=== PATIENT | female | born 2005 | race Caucasian/White ===

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

== ENCOUNTER → 2023-01-16 | Outpatient (CLI) | payer BC, SELFPAY ==
[2023-01-16 16:27] LABS: Hemoglobin A1c 4.8 % (3.8-5.6)
[2023-01-16 16:35] LABS: T4 Free Direct 1.03 ng/dL (0.76-1.46); Thyroid Stim Hormone (TSH) 1.68 uIU/mL (0.358-3.74)
[2023-01-18 22:11] LABS: Chlamydia By Nucleic Acid AMP Negative (Negative); Gonococcus By Nucleic Acid AMP Negative (Negative)
[2023-01-19 13:07] LABS: Testosterone Free 2.2 pg/mL (Not Estab.)
== END | disposition home or self-care (01) ==
PROVIDERS: PCP Internal Medicine; Referring Provider Registered Nurse; Visit Provider Registered Nurse
DX: N92.6 Irregular menstruation, unspecified (principal); Z20.2 Contact with and (suspected) exposure to infections with a predominantly sexual mode of transmission
CPT/HCPCS: 36415; 82627; 83036; 84402; 84439; 84443; 87491; 87591; 82626

== ENCOUNTER → 2023-01-18 | Outpatient (CLI) | payer BC, SELFPAY ==
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
== END | disposition home or self-care (01) ==
PROVIDERS: PCP Internal Medicine; Referring Provider Registered Nurse; Visit Provider Registered Nurse
DX: N92.6 Irregular menstruation, unspecified (principal)
CPT/HCPCS: 76830

== ENCOUNTER 2023-10-04 17:37 | Emergency (ER) | payer BC, SELFPAY ==
[2023-10-04 17:37] VITALS: BP 109/70; PULSE 64; RESP 16; TEMP 36.4; O2SAT 98; BMI 32.1
--- OUTSIDE RECORDS SUMMARY | 2023-10-04 18:38 | XMS RPT_ITS | CCD ---
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 01/21/2023 7:45 PM EDT Reason for Call: Had one episode of slight vaginal bleeding a short time ago. Her period ended a week ago. Outcome: Suggested that she see her doctor if bleeding continues. She will call her radio tester doctor at [facility] to discuss with him. Reason for Disposition [1] Bleeding or spotting between regular periods AND [2] occurs three cycles (3 months) or less this past year Answer Assessment - Initial Assessment Questions 1. AMOUNT: streaks of blood noted on toilet tissue 2. ONSET: noticed a few minutes ago after using the bathroom 3. MENSTRUAL PERIOD: period ended a week ago 4. REGULARITY:not asked 5. ABDOMINAL PAIN: lower abdominal pain for a few weeks, rated as 3 out of 10, saw an radio tester recently and was diagnosed with an ovarian cyst. 6. : no chance of , does not use control 7. : N/A 8. HORMONES: none 9. BLOOD THINNERS: none 10. CAUSE: unknown 11. HEMODYNAMIC STATUS: feels a little weak, but just donated plasma 1 1/2 hours ago 12. OTHER SYMPTOMS:none Protocols used: Vaginal Bleeding - [id number] documented in this encounterMercy [facility]04-24-2023 NoteHNO ID: [id number] Author: Yee Sanchez APRN.[employer] Service: ? Author Type: Nurse Practitioner Type: Progress Notes Filed: 12/10/2022 8:57 AM Note Text: CC: Patient presents with: Rash HPI Kuldeep Pineda is a 17 year old female who presents today for rash follow-up. She was seen last week with worsening urticarial rash despite prednisone. Had also reported symptoms consistent with angioedema. Labs were essentially unremarkable. Today patient reports she has still rash but just not as itchy. Lip swelling and rash have resolved. Denies any new or worsening symptoms. REVIEW OF SYSTEMS See HPI PAST MEDICAL HISTORY Diagnosis Date Breakthrough bleeding 03/23/2022 COVID-19 05/02/2021 Infection due to Chlamydia species 03/23/[address] 04/12/2021 PAST SURGICAL HISTORY Procedure Laterality Date PAST SURGICAL HISTORY OF 2019 Oral surgery under [facility] Patient has no known allergies. MEDICATIONS buPROPion XL (WELLBUTRIN XL) 150 mg 24 hr tablet Take 150 mg by mouth once daily. TAKE 1 TABLET BY MOUTH ONCE DAILY IN THE MORNING hydrOXYzine HCl (ATARAX) 50 mg tablet Take 50 mg by mouth once daily as needed. FAMILY HISTORY Problem Relation Age of Onset No Known Problems Mother Hypertension Father Psychiatry Sister No Known Problems Sister No Known Problems Sister No Known Problems Sister No Known Problems Brother No Known Problems Brother No Known Problems Brother No Known Problems Brother No Known Problems Maternal Grandfather Breast Cancer Paternal Grandmother No Known Problems Paternal Grandfather Social History Tobacco Use Smoking status: Never Smokeless tobacco: Never Vaping Use Vaping Use: Former Quit date: 08/19/2020 Substance Use Topics Alcohol use: Not Currently Drug use: Never PHYSICAL EXAM BP 119/75 Pulse 86 Resp 14 Wt 73 kg (161 lb) General Appearance: well appearing, in no acute distress, alert Oropharynx: lips normal without lesions, buccal mucosa normal, tongue midline and normal, soft palate, uvula, and tonsils normal Skin: rash on torso is smaller and less erythematous DATA REVIEWED: Most recent labs ASSESSMENT/PLAN: 1. Urticaria - ICD9: 708.9, ICD10: L50.9 (primary diagnosis) Improved. Etiology remains unclear - recommend follow-up with car wash attendant, patient already established at [facility] - Continue anti itch therapy of Atarax prn 2. Angioedema, subsequent encounter - ICD9: V58.89, 995.1, ICD10: T78.3XXD Resolved. Follow-up with dermatology as above Prescription instructions reviewed with patient as applicable. Potential red flag symptoms discussed with the patient. Reviewed appropriate action plan to take if red flag symptoms occur. Patient agreeable to treatment plan. During this patient visit I have spent approximately 20 minutes in counseling regarding treatment options, medications, and coordinating care. Yee Sanchez APRN.[facility]AM[facility]04-17-2023 NoteHNO ID: [id number] Author: Yee Sanchez APRN.HAJA Service: ? Author Type: Nurse Practitioner Type: Progress Notes Filed: 12/03/2022 12:23 PM Note Text: CC: Patient presents with: Rash: No better since seen [facility]. HPI Kuldeep Pineda is a 17 year old female who presents today for rash for about one week. She was seen in urgent care [facility] on 11/30, rash started after she switched body wash brand. She was treated with prednisone and Pepcid for contact dermatitis. Since then rash has been worsening. Location: abdomen, low back, chest. She also reports lip swelling and bumps around the edges of her lips. Denies tongue or throat swelling, difficulty breathing or swallowing, cough or wheezing Itching or Pain: YES, very itchy and uncomfortable Ever had a rash like this before: YES, history of urticaria intermittently. History of skin problems such as psoriasis, eczema, hives: YES, eczema. New medications or foods: No. Exposure to others with rash: No. Environmental exposures: No Environmental/seasonal allergies: No Fever, chills, fatigue, joint pain/swelling: No. Treatments: Aveeno, benadryl cream, Dove soap PAST MEDICAL HISTORY Diagnosis Date Breakthrough bleeding 03/23/2022 COVID-19 05/02/2021 Infection due to Chlamydia species 03/23/[address] 04/12/2021 PAST SURGICAL HISTORY Procedure Laterality Date PAST SURGICAL HISTORY OF 2019 Oral surgery under [facility] Patient has no known allergies. MEDICATIONS predniSONE (DELTASONE) 10 mg tablet Take 4 tabs daily for 3 days, then 2 tabs daily for 3 days, then 1 tab daily for 3 days with food. famotidine (PEPCID) 20 mg tablet Take 1 tablet by mouth twice daily for 7 days. ARIPiprazole (ABILIFY) 5 mg tablet Take 1 tablet by mouth once daily. from Mental Health (Patient not taking: Reported on 11/30/2022) hydrOXYzine HCl (ATARAX) 50 mg tablet Take 1 tablet by mouth three times daily as needed for anxiety. from Mental Health (Patient not taking: Reported on 11/30/2022) lamoTRIgine (LAMICTAL) 100 mg tablet Take 1 tablet by mouth once daily. from Mental Health (Patient not taking: Reported on 11/30/2022) traZODone (DESYREL) 50 mg tablet Take 1 tablet by mouth daily at bedtime. from Mental Health (Patient not taking: Reported on 11/30/2022) venlafaxine ER (EFFEXOR XR) 75 mg 24 hr capsule Take 1 capsule by mouth once daily. from Mental Health (Patient not taking: Reported on 11/30/2022) FAMILY HISTORY Problem Relation Age of Onset No Known Problems Mother Hypertension Father Psychiatry Sister No Known Problems Sister No Known Problems Sister No Known Problems Sister No Known Problems Brother No Known Problems Brother No Known Problems Brother No Known Problems Brother No Known Problems Maternal Grandfather Breast Cancer Paternal Grandmother No Known Problems Paternal Grandfather Social History Tobacco Use Smoking status: Never Smokeless tobacco: Never Vaping Use Vaping Use: Former Quit date: 08/19/2020 Substance Use Topics Alcohol use: Not Currently Drug use: Never REVIEW OF SYSTEMS See HPI PHYSICAL EXAM BP 117/76 Pulse 73 Resp 14 Wt 73.5 kg (162 lb) General Appearance: well appearing, in no acute distress, alert Oropharynx: lips puffy, edges of lips are dry with rough bumps. Tongue and pharynx normal. Oral mucosa normal. Lungs: Lungs clear to auscultation. No wheezing, rhonchi, rales. Heart: RRR without murmur, gallop, or rubs. No ectopy ASSESSMENT/PLAN: 1. Urticaria - ICD9: 708.9, ICD10: L50.9 Recurrent urticaria with angioedema of the lips. She has never had lab evaluation for this. No alarm symptoms or exam findings. - Treatment with antihistamine- Zyrtec 10mg po QD and - TRIAMCINOLONE ACETONIDE 40 MG/ML SUSPENSION FOR INJECTION today in the office. - Continue with systemic steriods taper - Anti itch therapy of Oatmeal baths recommended prn - Follow up [facility] car wash attendant[facility] Check labs: - CBC + DIFF - COMP METABOLIC PANEL - SED RATE WESTERGREN - C-REACTIVE PROTEIN (CRP) - URINALYSIS, WITH MICROSCOPIC Prescription instructions reviewed with patient as applicable. Potential red flag symptoms discussed with the patient. Reviewed appropriate action plan to take if red flag symptoms occur. Patient agreeable to treatment plan. Yee Sanchez APRN.HAAJMartins Ferry [facility]04-14-2023 NoteHNO ID: [id number] Author: Emily Hathaway APRN.HAJA Service: ? Author Type: Nurse Practitioner Type: Progress Notes Filed: 11/30/2022 7:47 AM Note Text: Subjective Came in with complaints of itching rash on bilateral arms and hands abdomen and face. Patient says she has very sensitive skin. Says she recently changed her body wash over the last couple days. Patient says the rash itches. Denies any other symptoms at this time. The history is provided by the patient. No radio electronics officer was used. Rash Review of Systems Constitutional: Negative. Skin: Positive for itching and rash. Objective Physical Exam Constitutional: Appearance: Normal appearance. Pulmonary: Effort: Pulmonary effort is normal. Skin: Comments: Patient does have contact dermatitis rash in areas marked above. Neurological: Mental Status: She is alert. PAST MEDICAL HISTORY Diagnosis Date Breakthrough bleeding 03/23/2022 COVID-19 05/02/2021 Infection due to Chlamydia species 03/23/[address] 04/12/2021 PAST SURGICAL HISTORY Procedure Laterality Date PAST SURGICAL HISTORY OF 2019 Oral surgery under [facility] Patient has no known allergies. MEDICATIONS predniSONE (DELTASONE) 10 mg tablet Take 4 tabs daily for 3 days, then 2 tabs daily for 3 days, then 1 tab daily for 3 days with food. famotidine (PEPCID) 20 mg tablet Take 1 tablet by mouth twice daily for 7 days. ARIPiprazole (ABILIFY) 5 mg tablet Take 1 tablet by mouth once daily. from Mental Health (Patient not taking: Reported on 11/30/2022) hydrOXYzine HCl (ATARAX) 50 mg tablet Take 1 tablet by mouth three times daily as needed for anxiety. from Mental Health (Patient not taking: Reported on 11/30/2022) lamoTRIgine (LAMICTAL) 100 mg tablet Take 1 tablet by mouth once daily. from Mental Health (Patient not taking: Reported on 11/30/2022) traZODone (DESYREL) 50 mg tablet Take 1 tablet by mouth daily at bedtime. from Mental Health (Patient not taking: Reported on 11/30/2022) venlafaxine ER (EFFEXOR XR) 75 mg 24 hr capsule Take 1 capsule by mouth once daily. from Mental Health (Patient not taking: Reported on 11/30/2022) FAMILY HISTORY Problem Relation Age of Onset No Known Problems Mother Hypertension Father Psychiatry Sister No Known Problems Sister No Known Problems Sister No Known Problems Sister No Known Problems Brother No Known Problems Brother No Known Problems Brother No Known Problems Brother No Known Problems Maternal Grandfather Breast Cancer Paternal Grandmother No Known Problems Paternal Grandfather Social History Tobacco Use Smoking status: Never Smokeless tobacco: Never Vaping Use Vaping Use: Former Quit date: 08/19/2020 Substance Use Topics Alcohol use: Not Currently Drug use: Never ASSESSMENT/PLAN: 1. Rash - ICD9: 782.1, ICD10: R21 - PREDNISONE 10 MG TABLET - FAMOTIDINE 20 MG TABLET Patient was educated about proper use of medication and supportive therapies. Patient will follow-up if signs and symptoms do not seem to be getting better. Patient was okay with this care plan. Patient will also not use the body wash anymore. Emily Hathaway APRN.[facility]04-14-2023 History of Present illness Narrative* Emily Hathaway APRN.[facility] - 11/30/2022 7:45 AM EDT Images from the original note were not included. Subjective Came in with complaints of itching rash on bilateral arms and hands abdomen and face. Patient says she has very sensitive skin. Says she recently changed her body wash over the last couple days. Patient says the rash itches. Denies any other symptoms at this time. The history is provided by the patient. No radio electronics officer was used. Rash Review of Systems Constitutional: Negative. Skin: Positive for itching and rash. Objective Physical Exam Constitutional: Appearance: Normal appearance. Pulmonary: Effort: Pulmonary effort is normal. Skin: Comments: Patient does have contact dermatitis rash in areas marked above. Neurological: Mental Status: She is alert. PAST MEDICAL HISTORY Diagnosis Date Breakthrough bleeding 03/23/2022 COVID-19 05/02/2021 Infection due to Chlamydia species 03/23/[address] 04/12/2021 PAST SURGICAL HISTORY Procedure Laterality Date PAST SURGICAL HISTORY OF 2019 Oral surgery under [facility] Patient has no known allergies. MEDICATIONS predniSONE (DELTASONE) 10 mg tablet Take 4 tabs daily for 3 days, then 2 tabs daily for 3 days, then 1 tab daily for 3 days with food. famotidine (PEPCID) 20 mg tablet Take 1 tablet by mouth twice daily for 7 days. ARIPiprazole (ABILIFY) 5 mg tablet Take 1 tablet by mouth once daily. from Mental Health (Patient not taking: Reported on 11/30/2022) hydrOXYzine HCl (ATARAX) 50 mg tablet Take 1 tablet by mouth three times daily as needed for anxiety. from Mental Health (Patient not taking: Reported on 11/30/2022) lamoTRIgine (LAMICTAL) 100 mg tablet Take 1 tablet by mouth once daily. from Mental Health (Patientnot taking: Reported on 11/30/2022) traZODone (DESYREL) 50 mg tablet Take 1 tablet by mouth daily at bedtime. from Mental Health (Patient not taking: Reported on 11/30/2022) venlafaxine ER (EFFEXOR XR) 75 mg 24 hr capsule Take 1 capsule by mouth once daily. from Mental Health (Patient not taking: Reported on 11/30/2022) FAMILY HISTORY Problem Relation Age of Onset No Known Problems Mother Hypertension Father Psychiatry Sister No Known Problems Sister No Known Problems Sister No Known Problems Sister No Known Problems Brother No Known Problems Brother No Known Problems Brother No Known Problems Brother No Known Problems Maternal Grandfather Breast Cancer Paternal Grandmother No Known Problems Paternal Grandfather Social History Tobacco Use Smoking status: Never Smokeless tobacco: Never Vaping Use Vaping Use: Former Quit date: 08/19/2020 Substance Use Topics Alcohol use: Not Currently Drug use: Never ASSESSMENT/PLAN: 1. Rash - ICD9: 782.1, ICD10: R21 - PREDNISONE 10 MG TABLET - FAMOTIDINE 20 MG TABLET Patient was educated about proper use of medication and supportive therapies. Patient will follow-up if signs and symptoms do not seem to be getting better. Patient was okay with this care plan. Patient will also not use the body wash anymore. Emily Hathaway APRN.CNP documented in this encounterMer[facility]11-15-2022 Instructions* Patient Instructions* Barbara Ellison APRN.CNP - 07/03/2022 6:33 PM EST covid and flu test ordered You will be notified in 12-24 hours, results available on [facility] Home isolation until covid results are back Rest, increase water intake Motrin or Tylenol as needed for fever or pain. Salt water gargles, chloraseptic spray or lozenges as needed for sore throat. Warm beverages, honey. Nasal saline spray as needed Cool mist humidifier at night Tylenol (generic acetaminophen) 500 mg-2 tabs every 8 hrs. as needed for fever and aches Ibuprofen 600 mg (3-200mg tablets) every 6 hours DO NOT take any other OTC cough or cold medication while taking the prescription Bromfed DM. May use advil aleve ibuprofen or tylenol * Seek medical care immediately, call 911, go to ER if you have chest pain, difficulty breathing, shortness of breath, inability to swallow. documented in this encounterMercy [facility]11-15-2022 History of Present illness Narrative* Barbara Ellison APRN.CNP - 07/03/2022 6:29 PM EST Subjective The history is provided by the patient. No radio electronics officer was used. HPI Kuldeep Pineda is a 16 year old female who presents today for CC of nasal congestion, pressure, cough, ear pain/pressure and sore throat for 3 days. 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 BP 122/72 Pulse 80 Temp 36.4 C (97.6 F) Resp 16 Wt 76.2 kg (168 lb) SpO2 100% Social History Tobacco Use Smoking status: Never Smokeless tobacco: Never Vaping Use Vaping Use: Former Quit date: 08/19/2020 Substance Use Topics Alcohol use: Not Currently Drug use: Never PAST MEDICAL HISTORY Diagnosis Date Breakthrough bleeding 03/23/2022 COVID-19 05/02/2021 Infection due to Chlamydia species 03/23/[address] 04/12/2021 I have confirmed and edited as necessary, the [facility] Review of Systems Constitutional: Negative for chills and fever. HENT: Positive for congestion and sinus pain. Negative for ear pain and sore throat. Respiratory: Positive for cough. Negative for sputum production, shortness of breath and wheezing. Cardiovascular: Negative for chest pain. Musculoskeletal: Negative for myalgias. Neurological: Negative for headaches. Objective Physical Exam Vitals and nursing note reviewed. HENT: Head: Normocephalic and atraumatic. Right Ear: Ear canal and external ear normal. A middle ear effusion is present. Tympanic membrane is bulging. Left Ear: Ear canal and external ear normal. A middle ear effusion is present. Tympanic membrane isbulging. Nose: Mucosal edema, congestion and rhinorrhea present. Right Sinus: No maxillary sinus tenderness or frontal sinus tenderness. Left Sinus: No maxillary sinus tenderness or frontal sinus tenderness. Mouth/Throat: Pharynx: Uvula midline. Posterior oropharyngeal erythema present. No oropharyngeal exudate. Tonsils: 2+ on the right. 2+ on the left. Cardiovascular: Rate and Rhythm: Normal rate and regular rhythm. Heart sounds: Normal heart sounds. Pulmonary: Effort: Pulmonary effort is normal. Breath sounds: Normal breath sounds. Lymphadenopathy: Head: Right side of head: No submental, submandibular or tonsillar adenopathy. Left side of head: No submental, submandibular or tonsillar adenopathy. Cervical: Cervical adenopathy present. Right cervical: Superficial cervical adenopathy present. Left cervical: Superficial cervical adenopathy present. Skin: General: Skin is warm and dry. Neurological: Mental Status: She is alert. Psychiatric: Mood and Affect: Affect normal. ASSESSMENT/PLAN: 1. URI with cough and congestion - ICD9: 465.9, ICD10: J06.9 - Discussed viral etiology and rationale for treatment. - Symptomatic treatment with prn analgesia - Supportive care with fluids and rest Home isolation Testing ordered Comfort measures discussed - see patient instructions. When to seek higher level of care Notified in 12-24 hours with results, available on [facility] - COVID WITH FLUA+B, ROUTINE Diagnosis and treatment plan were discussed and questions were answered to the patient's satisfaction. Pt acknowledged understanding of concepts and follow up plan. Specific signs and symptoms that would indicate the need for higher level of care were discussed indetail warranting prompt ER evaluation. Barbara Ellison APRN.HAJA documented in this encounterMercy Health [facility]08-05-2022 History of Past illness Narrative* Problem Noted Date Resolved Date Infection due to Chlamydia species 03/23/2022 03/23/2022 documented as of this encounter (statuses as of 07/04/2022) [facility] History of Past illness Narrative* Problem Noted Date Resolved Date Infection due to Chlamydia species 03/23/2022 03/23/2022 documented as of this encounter (statuses as of 11/30/2022) [facility] History of Past illness Narrative* Problem Noted Date Resolved Date Infection due to Chlamydia species 03/23/2022 03/23/2022 documented as of this encounter (statuses as of 01/22/2023) [facility] History of Past illness Narrative* Problem Noted Date Resolved Date Infection due to Chlamydia species 03/23/2022 03/23/2022 documented as of this encounter (statuses as of 01/24/2023) [facility] History of Past illness Narrative* Problem Noted Date Diagnosed Date Resolved Date Infection due to Chlamydia species 03/23/2022 03/23/2022 Breakthrough bleeding 03/23/20222022 documented as of this encounter (statuses as of 07/30/2023) [facility] History of Present illness Narrative* Jorge Bearden MD - 03/23/2022 8:43 AM EDT This note was created using [employer]. Subjective Patient presents with: Establish Care Anxiety: 1 year or more Kuldeep Pineda was here for above. She had symptoms of crying, emotional breakdown, anxiety, hyperventilation recurrent for one year or more. Her previous PCP did not feel this was significant. Shehad never been formally diagnosed with anxiety or depression. Her father and sister were on sertraline. Parents when she was younger. She had no history of suicide attempts. 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 She was seeing [facility] for gynecology. PAST MEDICAL HISTORY Diagnosis Date Breakthrough bleeding 03/23/2022 COVID-19 05/02/2021 Infection due to Chlamydia species 03/23/[address] 04/12/2021 PAST SURGICAL HISTORY Procedure Laterality Date PAST SURGICAL HISTORY OF 2019 Oral surgery under [place] FAM[facility] HISTORY Problem Relation Age of Onset No Known Problems Mother Hypertension Father Psychiatry Sister No Known Problems Sister No Known Problems Sister No Known Problems Sister No Known Problems Brother No Known Problems Brother No Known Problems Brother No Known Problems Brother No Known Problems Maternal Grandfather Breast Cancer Paternal Grandmother No Known Problems Paternal Grandfather Social History Tobacco Use Smoking status: Never Smoker Smokeless tobacco: Never Used Vaping Use Vaping Use: Former Quit date: 08/19/2020 Substance Use Topics Alcohol use: Not Currently Drug use: Never Immunization History Administered Date(s) Administered DTaP, unspecified formulation 2003 2003 03/23/2004 11/28/2004 04/13/2009 HIB PRP-T Conjugated -4 Dose Series 2003 2003 03/23/2004 Hepatitis A Peds/Adol 04/12/2021 Hepatitis B Peds/Adol 2003 2003 Hib-HepB 2003 11/28/2004 Human Papillomavirus 9-valent Vaccine, Recombinant 04/12/2021 05/15/2021 IPV 2003 2003 11/28/2004 04/13/2009 Influenza Nasal, unspecified formulation 06/17/2006 Influenza Seasonal Inj Quad Age 6 Mo-64 Yrs Pres Free 05/15/2021 Influenza Vaccine, Whole 10/19/2004 Meningococcal Conjugate MCV4P Vaccine, IM 04/12/2021 Meningococcal Group B Vaccine 2 Dose 04/12/2021 05/15/2021 Pneumococcal Vac Conjugate(#7 thru NOVEMBER 2009 then #13 thereafter) 2003 2003 03/23/2004 11/28/2004 Tdap (Age 7+) 04/12/2021 Varicella Vaccine 10/19/2004 04/13/2009 measles mumps rubella (MMR) vaccine (M-M-R II, PRIORIX) 10/19/2004 04/13/2009 ALLERGIES No Known Allergies Current Outpatient Medications Medication Sig Ethinyl Estradiol-Norelgestrom (ZAFEMY) 150-35 mcg/24 hr patch Apply 1 Patch as directed one time aweek. sertraline (ZOLOFT) 50 mg tablet Take 1 tablet by mouth once daily. No current facility-administered medications for this visit. Review of Systems Constitutional: Negative. HENT: Negative. Eyes: Negative. Respiratory: Negative. Cardiovascular: Negative. Gastrointestinal: Negative. Genitourinary: Negative. Musculoskeletal: Negative. Skin: Soft spot right deltoid for one year. Neurological: Positive for headaches. Usual tension headaches once a week. Psychiatric/Behavioral: See HPI. Objective BP 120/78 Pulse 66 Ht 156 cm (5' 1.4 ) Wt 73 kg (161 lb) BMI 30.03 kg/m Physical Exam Constitutional: General: She is not in acute distress. HENT: Head: Normocephalic. Eyes: Conjunctiva/sclera: Conjunctivae normal. Pupils: Pupils are equal, round, and reactive to light. Cardiovascular: Rate and Rhythm: Normal rate and regular rhythm. Heart sounds: No murmur heard. No gallop. Pulmonary: Effort: Pulmonary effort is normal. Breath sounds: Normal breath sounds. Abdominal: Palpations: Abdomen is soft. Tenderness: There is no abdominal tenderness. Musculoskeletal: General: No tenderness. Normal range of motion. Cervical back: Neck supple. Right lower leg: No edema. Left lower leg: No edema. Skin: Comments: 0.5 cm subcutaneous atrophy right deltoid presumably from some injection Neurological: General: No focal deficit present. Mental Status: She is alert and oriented to person, place, and time. Psychiatric: Mood and Affect: Mood normal. Behavior: Behavior normal. Thought Content: Thought content normal. CP PHQ9 03/23/2022 Little interest or pleasure 2 - More than half the days Feeling down, depressed, hopeless 2 - More than half the days Trouble falling or staying asleep, sleeping too much 2 - More than half the days Feeling tired, having little energy 2 - More than half the days Poor appetite or overeating 1 - Several days Feeling bad about yourself, failure or you have let yourself/family down 2 - More than half the days Trouble concentrating on things 2 - More than half the days Moving or speaking so slowly, or fidgety or restless 2 - More than half the days Thoughts that you would be better off , or of hurting yourself in some way 1 - Several days How difficult have these problems made things Somewhat difficult Interpretation of Total Score 15-19 Moderately severe depression JOSEFINA-7 ANXIETY SCALE 03/23/2022 FEELING NERVOUS,ANXIOUS,OR ON EDGE 3 Nearly every day NOT BEING ABLE TO STOP OR CONTROL WORRYING 2 Over half the days WORRYING TOO MUCH ABOUT DIFFERENT THINGS 3 Nearly every day TROUBLE RELAXING 2 Over half the days BEING SO RESTLESS THAT IT'S HARD TO SIT STILL 3 Nearly every day BEING EASILY ANNOYED OR IRRITABLE 3 Nearly every day FEELING AFRAID IF SOMETHING AWFUL MIGHT HAPPEN 2 Over half the days GAD7 SCORE 18 IF YOU CHECKED OFF ANY PROBLEMS Somewhat difficult Assessment and Plan 1. Anxiety and depression - ICD9: 300.00, 311, ICD10: F41.9, F32.A (primary diagnosis) New diagnosis. - CBC - COMP METABOLIC PANEL - SERTRALINE 50 MG TABLET. Discussed medication dosage, usage, goals of therapy, and side effects. - CONSULT TO [facility] - Patient contracted for safety. Call [phone] if with crisis. 2. Chronic tension-type headache, not intractable - ICD9: 339.12, ICD10: G44.229 Stable. 3. Atrophy of skin and soft tissue - ICD9: 701.9, ICD10: L90.9 Reassured. 4. Breakthrough bleeding - ICD9: 626.6, ICD10: N92.1 Seeing [facility]. She will have Nexplanon removed. FDA warning discussed. - ZAFEMY 150 MCG-35 MCG/24 HR TRANSDERMAL PATCH Jorge Bearden MD [facility] Instructions* Patient Instructions* Jorge Bearden MD - 03/23/2022 8:41 AM EDT ASK FOR 3RD DOSE OF GARDASIL. [facility]* Diagnosis Anxiety and depression- Primary Dysthymic disorder Chronic tension-type headache, not intractable Chronic tension type headache Atrophy of skin and soft tissue Unspecified hypertrophic and atrophic condition of skin Breakthrough bleeding Metrorrhagia [facility]* Diagnosis URI with cough and congestion- Primary [facility]* Diagnosis Rash- Primary Rash and other nonspecific skin eruption [facility]* Diagnosis Bipolar depression ([facility])- Primary Bipolar I disorder, most recent episode (or current) depressed, unspecified documented in this encounter [facility] Work Phone: History of Past illness Narrative* Problem Noted Date Resolved Date Infection due to Chlamydia species 03/23/2022 03/23/2022 documented as of this encounter (statuses as of 03/23/2022) [facility] Summary Purpose Family History No Family History Records FoundNo Family History Records FoundNo Family History Records FoundNo Family History Records FoundNo Family History Records FoundNo Family History Records Found Advance Directives No Advanced Directives Records FoundNo Advanced Directives Records FoundNo Advanced Directives Records FoundNo Advanced Directives Records FoundNo Advanced Directives Records FoundNo Advanced Directives Records Found Health Concerns Infection Onset Date Last Indicated Resolved Time COVID-19 Rule-Out 07/03/2022 07/03/2022 Additional Source Comments INFORMATION SOURCE (unrecogn ized section and content) DATE CREATED AUTHOR AUTHOR'S ORGANIZ ATION 07/09/2022 [facility] DATE CREATED AUTHOR AUTHOR'S ORGANIZ ATION 07/21/2022 [facility] DATE CREATED AUTHOR AUTHOR'S ORGANIZ ATION 04/11/[address] [facility] DATE CREATED AUTHOR AUTHOR'S ORGANIZ ATION 08/06/2023 [facility] DATE CREATED AUTHOR AUTHOR'S ORGANIZ ATION 09/28/2023 [facility] Source Comments (unrecognize d section and content) In the event this informatio n is protected by the Federal Confidentiality of Alcohol and Drug Abuse Patient Records regulations: The Federal rules restrict any use of the information to criminally investigate or prosecute any alcohol or drug abuse patient.[facility] the event this information is protected by the Federal Confidentiality of Alcohol and Drug Abuse Patient Records regulations: The Federal rules restrict any use of the information to criminally investigate or prosecute any alcohol or drug abuse patient.[facility] the event this information is protected by the Federal Confidentiality of Alcohol and Drug Abuse Patient Records regulations: The Federal rules restrict any use of the information to criminally investigate or prosecute any alcohol or drug abuse patient.[facility] Hospital[facility] the event this information is protected by the Federal Confidentiality of Alcohol and Drug Abuse Patient Records regulations: The Federal rules restrict any use of the information to criminally investigate or prosecute any alcohol or drug abuse patient.[facility] Hospital[facility] the event this information is protected by the Federal Confidentiality of Alcohol and Drug Abuse Patient Records regulations: The Federal rules restrict any use of the information to criminally investigate or prosecute any alcohol or drug abuse patient.[facility] Hospital[facility] the event this information is protected by the Federal Confidentiality of Alcohol and Drug Abuse Patient Records regulations: The Federal rules restrict any use of the information to criminally investigate or prosecute any alcohol or drug abuse patient.[facility] Reason for Visit (unrecogniz ed section and content) Reason Comments Nasal Congestion drainage, bilateral ear pain, cough and sore throat x 2-3 days Reason Comments Rash Hives, widespread x1 day, possible allergic reaction Reason Comments Vaginal Bleeding Reason Comments bh consult Reason Comments Anxiety Amb to ED with repor t of anxiety and depression. Takes Wellbutrin, but feels that her s/s have been getting worse. Called the [facility] line today and was advised to come to ER. She denies any SI or HI. Pt is calm, tearful and cooperative. Care Teams (unrecognized sec tion and content) Media Job Titles Relationship Specialty Start Date End Date Jorge Bearden MD [address], [place] [id number] PCP - General Internal Medicine 03/23/22 Media Job Titles Relationship Specialty Start Date End Date Jorge Bearden MD [address], [place] [id number] PCP - General Internal Medicine 03/23/22 Media Job Titles Relationship Specialty Start Date End Date Jorge Bearden MD [address], [place] [id number] PCP - General Internal Medicine 03/23/22 Media Job Titles Relationship Specialty Start Date End Date Jorge Bearden MD [address], [place] [id number] PCP - General Internal Medicine 03/23/22 Media Job Titles Relationship Specialty Start Date End Date Jorge Bearden MD [address], [place] [id number] PCP - General Internal Medicine 03/23/22 Media Job Titles Relationship Specialty Start Date End Date Jorge Bearden MD [address] [place] [id number] PCP - General 02/03/23 <item><item> Privacy Markings (unrecogniz ed section and content) Section Author: Tammy Diaz PROHIBITION ON REDISCLOSURE OF CONFIDENTIAL INFORMATION This notice accompanies a disclosure of information concerning a client made to you with the consent of such client. Section Author: Tammy Diaz PROHIBITION ON REDISCLOSURE OF CONFIDENTIAL INFORMATION This notice accompanies a disclosure of information concerning a client made to you with the consent of such client. FOR RECORDS PERTAINING TO PATIENTS WHO ARE OR HAVE BEEN ENROLLED IN A CHEMICAL DEPENDENCY/SUBSTANCEABUSE PROGRAM, SOME INFORMATION MAY BE OMITTED. This clinical summary was aggregated from multiple sources. Caution should be exercised in using it in the provision of clinical care. This summary normalizes information from multiple sources, and as a consequence, information in this document may materially change the coding, format and clinical context of patient data. In addition, data may be omitted in some cases. CLINICAL DECISIONS SHOULD BE BASED ON THE PRIMARY CLINICAL RECORDS. [facility]. provides no warranty or guarantee of the accuracy or completeness of information in this document.
== END 2023-10-04 18:29 | disposition left against medical advice (07) ==
LOC: ED 18:33
PROVIDERS: PCP Internal Medicine
DX: S09.90XA Unspecified injury of head, initial encounter (principal)

== ENCOUNTER → 2024-04-27 | Outpatient (CLI) | payer BC, SELFPAY ==
[2024-04-27 15:41] LABS: T4 Free Direct 1.03 ng/dL (0.76-1.46)
[2024-04-27 16:22] LABS: HIV - WCH Non-Reactive (Nonreactive); Hepatitis C Antibody Non-Reactive (Nonreactive); Syphilis Antibodies Non-reactive
[2024-05-03 06:37] LABS: HSV 1 IgG < 0.91 index (0.00-0.90); HSV 2 IgG < 0.91 index (0.00-0.90); Testosterone Free 2.6 pg/mL (0.0-4.2); Thyroid Peroxidase AB 16 IU/mL (0-34)
== END | disposition home or self-care (01) ==
LOC: PAVLAB 14:49
PROVIDERS: PCP Internal Medicine; Referring Provider Nurse Practitioner Women's Health; Visit Provider Nurse Practitioner Women's Health
DX: Z11.3 Encounter for screening for infections with a predominantly sexual mode of transmission (principal); N92.6 Irregular menstruation, unspecified
CPT/HCPCS: 36415; 82627; 84146; 84402; 84439; 84443; 86376; 86695; 86696; 86703; 86780; 86803; 87491; 87591; 82626

== ENCOUNTER → 2024-07-15 | Outpatient (CLI) | payer BC, SELFPAY ==
[2024-07-17 20:07] LABS: Chlamydia By Nucleic Acid AMP Negative (Negative); Gonococcus By Nucleic Acid AMP Negative (Negative)
== END | disposition home or self-care (01) ==
LOC: LABSPEC 10:12
PROVIDERS: PCP Internal Medicine; Referring Provider Advanced Practice Midwife; Visit Provider Advanced Practice Midwife
DX: O09.90 Supervision of high risk pregnancy, unspecified, unspecified trimester (principal); Z3A.00 Weeks of gestation of pregnancy not specified
CPT/HCPCS: 87086; 87088; 87491; 87591

== ENCOUNTER → 2024-08-13 | Outpatient (CLI) | payer BC, SELFPAY ==
[2024-08-13 12:16] LABS: Absolute Neutrophil Count 6.6 X10^3/uL (2.0-7.7); Basophil# 0.04 X10^3/uL; Basophil% 0.4 % (0-1); Eosinophil# 0.05 X10^3/uL; Eosinophils% 0.5 % (0-5); Hemoglobin 12.7 g/dL (12.0-15.0); Lymphocyte % 30.4 % (19-41); Mean Corp Hgb Conc 33.4 g/dL (32-36); Mean Corpuscular Volume 89.6 fL (81-99); Mean Platelet Vol. 10.5 fl (6.2-12.0); Monocyte# 0.54 X10^3/uL; Monocyte% 5.1 % (0-10); NRBC Flagged by Analyzer 0 % (0-5); Neutrophil # 6.64 X10^3/uL (2.7-7.7); Neutrophil % 63.2 % (47-70); Platelet Count 340 K/mm3 (150-450); RBC Distribution Width CV 12.9 % (11.6-14.6); RBC Distribution Width SD 42.4 fl (35.1-43.9); Red Blood Count 4.24 M/mm3 (4.2-5.4); White Blood Count 10.5 K/mm3 (4.4-11.0)
[2024-08-13 13:15] LABS: HIV - WCH Non-Reactive (Nonreactive); Hepatitis B Surface Antigen Non-Reactive (Nonreactive); Hepatitis C Antibody Non-Reactive (Nonreactive); Rubella IgG Reactive (Nonreactive); Syphilis Antibodies Non-reactive
== END | disposition home or self-care (01) ==
LOC: BWCLAB 08:57
PROVIDERS: Advanced Practice Midwife; PCP Internal Medicine; Referring Provider Nurse Practitioner Women's Health; Visit Provider Nurse Practitioner Women's Health
DX: O09.90 Supervision of high risk pregnancy, unspecified, unspecified trimester (principal); Z3A.00 Weeks of gestation of pregnancy not specified
CPT/HCPCS: 36415; 85025; 86703; 86762; 86780; 86803; 86850; 86900; 86901; 87340

== ENCOUNTER 2024-08-22 12:26 | Emergency (ER) | payer BC, SELFPAY ==
[2024-08-22 12:27] VITALS: BP 126/64; PULSE 79; RESP 16; TEMP 36.8; O2SAT 100; BMI 30.4
--- NOTE | 2024-08-22 13:13 | ED.VIS.FEGU ---
HPI HPI - Female History of Present Illness Chief Complaint: Vag Bld, Preg Informant: patient Pain Pain: Positive for Pelvic Pain Onset: Today Context: Gradual Onset Timing: Continuous Quality: Positive for Cramping Location: Suprapubic Current Severity: Mild Maximum Severity: Mild Bleeding Issue: Positive for Vaginal bleeding and Passing clots Onset: Today Current Severity: Similar to period Associated Symptoms Associated Symptoms: Negative for Dysuria, Frequency or Urgency Last known menstrual period: 05/09/24 Sexually: Positive for Active and Single Partner P: 0 Narrative Narrative: Healthy 19-year-old female around 14 weeks, follows with [facility] has already had an ultrasound showing intrauterine , presenting with cramping and bleeding that started today. No syncope or presyncope. Unknown blood type. [facility] Medical History Irregular menstrual bleeding Seasonal allergies Hx of trauma Home Medications ?Medication ?Instructions ?Recorded ?Last Taken ?Type PNV 153-FA 400 mcg-om3 35 mg-dha tab PO 07/03/24 Unknown History 25 mg-epa 5 mg-fish oil chew tablet ferrous sulfate 137 mg (45 mg 137 mg PO QDAY 07/03/24 Unknown History iron) tablet,extended release (Slow Fe) sertraline 50 mg tablet (Zoloft) 50 mg PO QDAY #30 tabs 07/20/24 Unknown Rx ondansetron 4 mg disintegrating 4 mg PO Q4H PRN nausea and 08/13/24 Unknown Rx tablet vomiting #60 tabs Allergy/AdvReac Type Severity Reaction Status Date / Time No Known Allergies Allergy Verified 08/22/24 12:28 Surgical History H/O oral surgery Social History adopted: No household members: family current occupational status: employed current occupation: [employer] pets and animals: Yes (Avoid litterbox) pets and animals: cat(s) and dog(s) history of recent travel: No sexually active: Yes Smoking Status: Former smoker quit date: 06/02/24 Electronic Cigarette Use: with nicotine alcohol intake: never substance use type: does not use well-balanced diet: about half the time caffeine: No eating out: 1-3 times/week during the past year weight has: remained stable what type of physical activity do you participate in: none susana/hindu: None seatbelt use: always do you feel safe at home: Yes additional social history: BF Richard- [employer] ROS ROS ED Constitutional Constitutional ED: Denies chills or fever(s) Eyes Eyes: Denies change in vision or diplopia ENT ENT ED: Denies rhinorrhea or sore throat Cardiovascular Cardiovascular: Denies chest pain or palpitations Respiratory/Chest Respiratory/Chest: Denies cough or dyspnea Gastrointestinal Gastrointestinal: Reports abdominal pain; Denies diarrhea, nausea or vomiting Genitourinary Genitourinary ED: Denies dysuria or hematuria Musculoskeletal Musculoskeletal: Denies back pain or neck pain Integumentary Denies abscess or rash Neurologic Neurologic: Denies headache(s), paresthesias or weakness Psychiatric Psychiatric: Reports anxiety; Denies suicidal thoughts EXAM Physical Exam Const Vital Signs: 08/22/24 12:27 Temperature 98.2 F Temperature Source Oral Pulse Rate 79 Respiratory Rate 16 Blood Pressure 126/64 H Blood Pressure Mean 84 Pulse Ox 100 Oxygen Delivery Method Room Air Positive well nourished and well developed General Appearance ED: well developed and NAD HEENT Reports moist mucous membranes normocephalic and atraumatic Eyes PERRL and EOMs intact bilaterally Neck full ROM and supple Resp normal respiratory effort and clear to auscultation bilaterally Cardio regular rate, regular rhythm and no murmurs GI non-distended GI Narrative: Mild suprapubic tenderness no guarding or rebound Auscultation: normoactive bowel sounds Palpation: soft Back/Spine no CVA tenderness General Back: other FROM Extremity normal to inspection General Extremety ED: Negative for edema, pulses abnormal or tenderness General Extremity: Negative for edema or pulses abnormal Neuro oriented x3, CN's II-XII intact bilaterally and no sensory deficits noted Sensorium / Orientation: awake and alert Motor Exam: strength 5/5 throughout Psych Mood & Affect: tearful Skin no rashes or lesions noted and no wounds MDM MDM MDM Narrative Medical decision making narrative: I did bedside ultrasound, patient has a single live intrauterine with heart tones 150 and good movement. I am estimating crown-rump length consistent with about 13.5-week , consistent with the patient's dates. Discussed with Nyasia Lucas with the practice she sees, she agrees with close outpatient follow-up and bleeding precautions. History & Record Review Additional record(s) reviewed:: Prior labs (Blood type O positive) Management Discussion w/another healthcare provider: [facility] [employer] Discharge Plan Triage Chief Complaint: Vag Bld, Preg ED Provider: Jonathon Vines Dx/Rx/DC Orders Clinical Impression: , threatened Instructions: Miscarriage Threatened Prescriptions: No Action PNV no.[id number] 400 mcg-35 mg- 25 mg-5 mg tablet,chewable PO Slow Fe 137 mg (45 mg iron) tablet extended release 137 mg PO QDAY ondansetron 4 mg tablet,disintegrating 4 mg PO Q4H PRN (Reason: nausea and vomiting) Qty: 60 2RF sertraline [Zoloft] 50 mg tablet 50 mg PO QDAY Qty: 30 3RF Primary Care Provider: Jorge Bearden Referrals: Nyasia Lucas CNM [Med Staff - Adv Practice Prof] - As soon as possible (or first avail provider) Activity Restrictions/Additional Instructions: No sexual intercourse or tampons until you are seen in follow up; use pads as needed. If you have other questions or concerns, call the on-call for the OB practice. Print Language: Bahraini Disposition Disposition: Home, Self Care
[2024-08-22 13:32] VITALS: BP 134/58; PULSE 78; RESP 16; TEMP 36.8; O2SAT 98
== END 2024-08-22 13:33 | disposition home or self-care (01) ==
LOC: ED 13:29
PROVIDERS: Emergency Provider Emergency Medicine; PCP Internal Medicine; Visit Provider Emergency Medicine
DX: O20.0 Threatened abortion (principal); Z87.891 Personal history of nicotine dependence; Z3A.13 13 weeks gestation of pregnancy
CPT/HCPCS: 99282

== ENCOUNTER → 2024-11-30 | Outpatient (CLI) | payer BC, MEDICAID, SELFPAY ==
[2024-11-30 12:11] LABS: Absolute Lymphocyte Count 2.25 X10^3/uL (0.83-4.51); Absolute Neutrophil Count 8.4 X10^3/uL (2.0-7.7); Basophil# 0.03 X10^3/uL; Basophil% 0.3 % (0-1); Eosinophil# 0.07 X10^3/uL; Eosinophils% 0.6 % (0-5); Hematocrit 35.6 % (37-47); Hemoglobin 11.8 g/dL (12.0-15.0); Lymphocyte # 2.25 X10^3/ul (0.83-4.51); Lymphocyte % 19.8 % (19-41); Mean Corp Hgb Conc 33.1 g/dL (32-36); Mean Corpuscular Hgb 30.3 pg (27.0-32.0); Mean Corpuscular Volume 91.3 fL (81-99); Mean Platelet Vol. 10.4 fl (6.2-12.0); Monocyte# 0.52 X10^3/uL; Monocyte% 4.6 % (0-10); NRBC Flagged by Analyzer 0 % (0-5); Neutrophil # 8.39 X10^3/uL (2.7-7.7); Platelet Count 316 K/mm3 (150-450); RBC Distribution Width CV 13.1 % (11.6-14.6); RBC Distribution Width SD 43.1 fl (35.1-43.9); White Blood Count 11.3 K/mm3 (4.4-11.0)
[2024-11-30 13:14] LABS: Glucose Challenge Gest 1H 50g 119 mg/dL (70-140); HIV Nonreactive (Nonreactive); Syphilis Antibodies Nonreactive (Nonreactive)
== END | disposition home or self-care (01) ==
PROVIDERS: PCP Internal Medicine; Referring Provider Obstetrics & Gynecology; Visit Provider Obstetrics & Gynecology
DX: O09.92 Supervision of high risk pregnancy, unspecified, second trimester (principal); Z3A.00 Weeks of gestation of pregnancy not specified; Z13.1 Encounter for screening for diabetes mellitus
CPT/HCPCS: 36415; 82950; 85025; 86703; 86780

== ENCOUNTER 2024-12-01 17:30 | Outpatient (CLI) | payer BC, MEDICAID, SELFPAY ==
[2024-12-01 17:50] VITALS: RESP 16; TEMP 37.1
[2024-12-01 17:51] VITALS: BP 115/64; PULSE 99
[2024-12-01 17:58] VITALS: BMI 33.0
[2024-12-01] MEDS: Lactated Ringers 1,000 ML 999 ML IV (18:10)
[2024-12-01 18:48] LABS: Hematocrit 34.3 % (37-47); Hemoglobin 11.9 g/dL (12.0-15.0); Mean Corp Hgb Conc 34.7 g/dL (32-36); Mean Corpuscular Hgb 30.8 pg (27.0-32.0); Mean Corpuscular Volume 88.9 fL (81-99); Mean Platelet Vol. 10.1 fl (6.2-12.0); Platelet Count 297 K/mm3 (150-450); RBC Distribution Width SD 42.5 fl (35.1-43.9); Red Blood Count 3.86 M/mm3 (4.2-5.4); White Blood Count 13.8 K/mm3 (4.4-11.0)
[2024-12-01 19:09] LABS: Color, Urine Yellow (Yellow); Glucose, Dipstick Normal (Normal); Ketone-Dipstick Negative (Negative); Leukocyte Esterase-Dipstick Negative /ul (Negative); Nitrite-Dipstick Negative (Negative); Occult Blood-Urine Negative /ul (Negative); Protein-Dipstick 30 mg/dl (Negative); Urine Bilirubin Dipstick Negative (Negative); Urine Clarity Sl. Cloudy (Clear); Urine Urobilinogen Normal (Normal)
[2024-12-01 19:13] LABS: Protein, Urine (Random) 32.1 mg/dL (0.0-12.0); Protein:Creat Ratio 141 mg/g CRE (0-200)
[2024-12-01 19:14] LABS: Uric Acid 3.7 mg/dL (2.6-6.0)
[2024-12-01 19:15] LABS: AST(SGOT) 25 U/L (<=31); Alanine Aminotransfer ALT/SGPT 18 U/L (<=34); Creatinine, Serum 0.54 mg/dL (0.70-1.20); EST Glomerular Filtration Rate 134 (>60); Estimated Creatinine Clearance 157.12 ml/min (50-250)
[2024-12-01 19:20] VITALS: BP 109/69; PULSE 90
[2024-12-01 19:22] VITALS: RESP 16; TEMP 36.7
[2024-12-01] MEDS: Ondansetron 4 MG/2 ML Vial IV (19:48)
--- NOTE | 2024-12-01 19:51 | OB.TRI.HP_ITS ---
HPI - General General Date of Admission: 12/01/24 HPI Narrative KULDEEP PINEDA, is a 19 y/o @ 28 weeks 3 days who presents to L&D with nausea, vomiting, diarrhea, and epigastric/ruq pain. She denies having sick contacts. no bloody diarrhea, no headache, no visual changes. Maternal Data Information MCKENZIE Calculator Estimated Delivery Date Method Current WG Current Estimate 02/20/25 LMP (Certain) 28w 5d Other Estimates 02/24/25 Ultrasound #1 28w 1d PFSH PFSH Medical History Irregular menstrual bleeding Seasonal allergies Hx of trauma Home Medications ?Medication ?Instructions ?Recorded ?Last Taken ?Type PNV 153-FA 400 mcg-om3 35 mg-dha 1 tab PO 07/03/24 Unk nown History 25 mg-epa 5 mg-fish oil chew tablet ondansetron 4 mg disintegrating 4 mg PO Q6H PRN nausea and 12/01/24 Unknown Rx tablet vomiting #30 tabs Allergy/AdvReac Type Severity Reaction Status Date / Time No Known Allergies Allergy Verified 12/01/24 17:58 Surgical History H/O oral surgery Social History adopted: No household members: family current occupational status: employed current occupation: [employer] pets and animals: Yes (Avoid litterbox) pets and animals: cat(s) and dog(s) history of recent travel: No sexually active: Yes Smoking Status: Former smoker quit date: 06/02/24 Electronic Cigarette Use: with nicotine alcohol intake: never substance use type: does not use well-balanced diet: about half the time caffeine: No eating out: 1-3 times/week during the past year weight has: remained stable what type of physical activity do you participate in: none susana/christian: None seatbelt use: always do you feel safe at home: Yes additional social history: BF Richard- [employer] History 1 Elective abortions Hx Para 0 Spontaneous abortions Hx # Term Pregnancies Ectopic pregnancies Hx # Pregnancies Multiple births # of living children Visit Details Expected Delivery Route/Plan abor Preferences- CB/BF classes: [] labor support person: [] labor intervention preferences: [] pain management options preferred: [] cut cord/dad catch: [] : [] PP control planned: [] discussed possible routes of delivery and associated risks: [] special requests: [] Plans Covid status: [] Flu vaccine: [] Tdap vaccine: [] Rhogam: [] LARC form signed: [] Problem list reviewed and updated with the most current plan of care details and appropriate orders placed. Relevant counseling for the gestational age provided. Continue routine care and follow up unless otherwise noted in visit notes/problem list details OB Flowsheet Initial Weight: Not Recorded Date -?-?-?-?-?-?-?-?-?-?-?-?- EGA Weight BP Urine Prot -?-?-?-?-?-?-?-?-?-?-?-?- Glucose FHR FuHt Pres Dilation -?-?-?-?-?-?-?-?-?-?-?-?- Effaced St Visit Note 07/15/24 -?-?-?-?-?-?-?-?-?-?-?-?- 8w 4d 162 lb 127/78 -?-?-?-?-?-?-?-?-?-?-?-?- 181 -?--?-?-?-?-?-?-?-?-?-?-?- KW- CRL cons wit h dates. Accepts NIPT 08/13/24 -?-?-?-?-?-?-?-?-?-?-?-?- 12w 5d 162 lb 6 oz 122/71 Nega tive -?-?-?-?-?-?-?-?-?-?-?-?- Negative 163 -?-?-?-?-?-?-?-?-?-?-?-?- MH-No VB. Concetta snowden/sharon sent. Br US confirm FHT. PN labs today 08/24/24 -?-?-?-?-?-?-?-?-?-?-?-?- 14w 2d 163 lb 112/76 Negative -?-?-?-?-?-?-?-?-?-?-?-?- Negative 150 -?-?-?-?-?-?-?-?-?-?-?-?- SM- seen seconda ry to spotting over the weeknd seen in ER and viable IUP seen no abnormalities 09/11/24 -?-?-?-?-?-?-?-?-?-?-?-?- 16w 6d Negative -?-?-?-?-?-?-?-?-?-?-?-?- Negative 153 -?-?-?-?-?-?-?-?-?-?-?-?- KW- no vb/crampi ng. +flutters. anatomy US ordered. 10/08/24 -?-?-?-?-?-?-?-?-?-?-?-?- 20w 5d 168 lb 6 oz 107/55 -?--?-?-?-?-?-?-?-?-?-?-?- 145 20 -?-?-?-?-?-?-?-?-?-?-?-?- KW- no vb/crampi ng. good fm. anatomy scan reviewed 11/09/24 -?-?-?-?-?-?-?-?-?-?-?-?- 25w 2d 170 lb 8 oz 101/63 Nega tive -?-?-?-?-?-?-?-?-?-?-?-?- Negative 140 25 -?-?-?-?-?-?-?-?-?-?-?-?- JV- glucola inst ructions reviewed. no lof, vaginal bleeding, or dec fm. 11/19/24 -?-?-?-?-?-?-?-?-?-?-?-?- 26w 5d 174 lb 99/65 Negative -?-?-?-?-?-?-?-?-?-?-?-?- Negative 145 -?--?-?-?-?-?-?-?-?-?-?-?- KW- work in for decreased movement. no vb/lof/ctx. FHT with doppler easily found and movement noted 11/30/24 -?-?-?-?-?-?-?-?-?-?-?-?- 28w 2d 173 lb 101/68 Negative -?-?-?-?-?-?-?-?-?-?-?-?- Negative 140 28 -?-?-?-?-?-?-?-?-?-?-?-?- KW- no vb/lof/ct x. good fm. LARC today. tdap next visit. KW- no vb/lof/ctx. good fm. LARC today. tdap next visit. glucose today ROS Constitutional Constitutional: Reports systems reviewed and no addt'l complaints, except as documented Gastrointestinal Gastrointestinal: Denies bloating, constipation, cramping, diarrhea, nausea or vomiting Genitourinary Genitourinary: Reports other Details: Denies vaginal odor, vaginal bleeding, or vaginal discharge ; Denies difficulty urinating or flank pain Physical Exam HEENT normocephalic Resp normal respiratory effort and normal air movement no CVA tenderness Extremity normal to inspection General Extremity: edema bilateral (trace ) NST FHR Rate Baby A Baseline: 130 Variability:: Moderate Accelerations:: 15 x 15 Decelerations:: None NST Reactive:: Yes FHR Category:: Category I Uterine Activity:: no signs of contractions Assessment & Plan (1) Gastroenteritis: COMMENT: IV fluids and zofran 12/01/24- improved and discharged to home. (2) Former electronic cigarette use: COMMENT: Quit 1 month ago (3) Supervision of high-risk : QUALIFIERS: Trimester: second trimester Qualified Code(s): O09.92 - Supervision of high risk , unspecified, second trimester COMMENT: PRR, , MCKENZIE 02/20/25, BF Richard (4) : QUALIFIERS: Weeks of gestation: 28 weeks Qualified Code(s): Z3A.28 - 28 weeks gestation of COMMENT: declined NIPT & Carrier testing, nl anatomy (5) Anxiety: (6) Major depression: QUALIFIERS: Major depression recurrence: unspecified whether recurrent Active/Remission status: remission status unspecified Qualified Code(s): F32.9 - Major depressive disorder, single episode, unspecified (7) Bipolar disorder: QUALIFIERS: Active/Remission status: remission status unspecified Qualified Code(s): F31.9 - Bipolar disorder, unspecified (8) Dysthymia: COMMENT: Psychotherapy encouraged. Discussed nexplanon side effects. Discussed medication if needed. PLAN: Plan patient was given a bolus of IV fluids, tylenol offered and IV zofran given. She stated after 2 hours that she felt much better and was tolerating PO. ok to dc to home. Charges/Coding Multi Select Codes Visit Charges Office Visit/Consults: 54846 OV L3 Est 20min Urinary/Genital Urinary/Genital CPT Codes: 16731-34 non-stress test Interp
[2024-12-01 19:52] LABS: Bacteria 1+ /hpf (None Seen); Mucous, Urine 2+ /hpf (<or=2+)
[2024-12-01 19:53] LABS: Squamous Epithelial Cells - UA 5-10 SEEN /hpf (5-10)
[2024-12-01 19:54] LABS: Red Blood Cells-Urine 0-5 SEEN /hpf (0-5); White Blood Cells 0-5 SEEN /hpf (0-5)
== END 2024-12-01 20:26 | disposition home or self-care (01) ==
LOC: WPOUT 17:33 → WP 17:34
PROVIDERS: PCP Internal Medicine; Referring Provider Obstetrics & Gynecology; Visit Provider Obstetrics & Gynecology
DX: O21.9 Vomiting of pregnancy, unspecified (principal); O99.891 Other specified diseases and conditions complicating pregnancy; R10.13 Epigastric pain; O99.612 Diseases of the digestive system complicating pregnancy, second trimester; K52.9 Noninfective gastroenteritis and colitis, unspecified; Z3A.28 28 weeks gestation of pregnancy
CPT/HCPCS: 96374; 96361; 36415; 59025; 59050; 81001; 82565; 82570; 84156; 84450; 84460; 84550; 85027; 87086; 99221; G0378; J2405

== ENCOUNTER 2024-12-20 16:50 | Outpatient (CLI) | payer BC, MEDICAID, SELFPAY ==
[2024-12-20 17:01] VITALS: RESP 16; TEMP 36.8
[2024-12-20 17:03] VITALS: BP 119/72; PULSE 101
[2024-12-20 17:04] VITALS: PULSE 97; O2SAT 97
[2024-12-20 17:13] VITALS: BMI 34.0
[2024-12-20 17:14] LABS: Color, Urine Straw (Yellow); Glucose, Dipstick Normal (Normal); Ketone-Dipstick Negative (Negative); Leukocyte Esterase-Dipstick Negative /ul (Negative); Nitrite-Dipstick Negative (Negative); Occult Blood-Urine Negative /ul (Negative); Protein-Dipstick 15 mg/dl (Negative); Specific Gravity, Urine 1.005 (1.002-1.030); Urine Bilirubin Dipstick Negative (Negative); Urine Clarity Clear (Clear); Urine Urobilinogen Normal (Normal)
--- NOTE | 2024-12-20 18:08 | US_ITS ---
PROCEDURE: OB LIMITED WITH BIOMETRICS 12/20/2024 REASON FOR EXAM: SPECIFICALLY LOOKING AT PLACENTA DO ABD PAIN TECHNIQUE: High resolution obstetric ultrasound performed using a 2D transducer. Standard views obtained, including biometry, anatomy survey, and Doppler studies. FINDINGS Transabdominal imaging. Single live intrauterine cardiac activity 141 beats per minute. Presentation is cephalic. Cervix not visualized. NAHEED 15.0 cm, maximum vertical pocket 3.9 cm. Posterior placenta appears within limits, not low-lying, grade 1. No evidence of abruption identified. DIMENSIONS: Biparietal Diameter: 8.0 cm/32 weeks 1 day, 70% Head Circumference: 30.06 cm/33 weeks 2 days, 72% Abdominal Circumference: 26.85 cm/31 weeks 0 days, 41% Femur Length: 5.55 cm/29 weeks 2 days, 3.5% FL/AC 21%, FL/HC 18%, CI 76%, HC/AC 1.12 FL/BPD 69.30% (71.00 87.00%) OFD 10.46 cm, 32 weeks 6 days, 97.30 percentile ESTIMATED WEIGHT: 1617 g +/-243 g ESTIMATED WEIGHT PERCENTILE (24+ weeks): 25% Estimated age by current ultrasound 31 weeks 6 days, MCKENZIE 02/15/[birth year]25 age by LMP 31 weeks 1 day, MCKENZIE 02/20/2025 US/OB Limited With Biometrics IMPRESSION: Single live intrauterine with biometry as above. FL/BPD 69.30% (71.00 87.00%) OFD 10.46 cm, 32 weeks 6 days, 97.30 percentile Reading Location: [id number]
--- NOTE | 2024-12-20 18:13 | US_ITS ---
PROCEDURE: BIOPHYSICAL PROF W/O NON STRES 12/20/2024 REASON FOR EXAM: ABD PAIN TECHNIQUE: High resolution obstetric ultrasound performed using a 2D transducer. Standard views obtained, including biometry, anatomy survey, and Doppler studies. FINDINGS Single live intrauterine with heart rate 148 beats per minute. Presentation is cephalic. NAHEED 15.8 cm, largest fluid pocket 5.9 x 4.1 cm Posterior placenta grade 1, not low-lying, appears within limits. Estimated age by LMP 31 weeks 1 day, MCKENZIE 02/20/2025 Breathing movements 2/2 Gross body movements 2/2 tone 2/2 Amniotic fluid volume 2/2 US/Biophysical Prof W/O Non Stres IMPRESSION: Single live intrauterine as above with biophysical profile of 8/8. Reading Location: [id number]
[2024-12-20 18:45] LABS: Hematocrit 33.5 % (37-47); Hemoglobin 11.6 g/dL (12.0-15.0); Mean Corp Hgb Conc 34.6 g/dL (32-36); Mean Corpuscular Hgb 30.2 pg (27.0-32.0); Mean Corpuscular Volume 87.2 fL (81-99); Mean Platelet Vol. 10.2 fl (6.2-12.0); Platelet Count 289 K/mm3 (150-450); RBC Distribution Width CV 12.6 % (11.6-14.6); RBC Distribution Width SD 40.3 fl (35.1-43.9); Red Blood Count 3.84 M/mm3 (4.2-5.4); White Blood Count 14.6 K/mm3 (4.4-11.0)
[2024-12-20 18:49] LABS: Protein, Urine (Random) 8.5 mg/dL (0.0-12.0); Protein:Creat Ratio 151 mg/g CRE (0-200)
[2024-12-20 18:50] LABS: Lipase 24 U/L (13-75)
[2024-12-20 18:52] LABS: ALB/GLOB Ratio 1.2 RATIO (0.9-2.4); AST(SGOT) 17 U/L (<=31); Alanine Aminotransfer ALT/SGPT 14 U/L (<=34); Albumin, Serum 3.7 g/dL (3.5-5.0); Alkaline Phosphatase 91 U/L (35-104); Anion Gap 13 (5-15); BUN 8 mg/dL (4-19); BUN/Creat Ratio 12.5 RATIO (10-20); Calcium,Total 9.1 mg/dL (7.6-11.0); Carbon Dioxide 20.5 mmol/L (21.0-32.0); Chloride 101 mmol/L (98-108); Creatinine, Serum 0.62 mg/dL (0.70-1.20); EST Glomerular Filtration Rate 130 (>60); Estimated Creatinine Clearance 138.99 ml/min (50-250); Glucose 75 mg/dL (70-99); Potassium 3.7 mmol/L (3.3-5.1); Protein, Total 6.8 g/dL (5.9-8.4); Sodium Level 135 mmol/L (133-145); Total Bilirubin < 0.15 mg/dL (0.00-1.30)
[2024-12-20 20:16] VITALS: BP 122/69; PULSE 94; O2SAT 99
[2024-12-20 20:19] VITALS: BP 122/69; PULSE 90; RESP 16; TEMP 36.7; O2SAT 98
[2024-12-20 20:25] LABS: Fibrinogen 439 mg/dl (203-444)
--- NOTE | 2024-12-21 08:00 | OB.TRI.PN ---
Progress Notes Date of Service: 12/20/24 Progress Note: Patient presents for triage evaluation secondary to back pain at 31.1 weeks FHT: 135 Moderate variability reactive no decelerations category I tracing [place]: no Contractions Assessment and plan: labs normal, growth and BPP reassuring, Reactive NST, reassuring maternal and status patient discharged to home to follow-up in office saturday or if needed. See problem list details for additional plan information. Laboratory Studies: Laboratory Tests 12/20/24 12/20/24 12/20/24 Range/Units 18:25 17:15 16:55 WBC 14.6 H (4.4-11.0) K/mm3 RBC 3.84 L (4.2-5.4) M/mm3 Hgb 11.6 L (12.0-15.0) g/dL Hct 33.5 L (37-47) % MCV 87.2 (81-99) fL MCH 30.2 (27.0-32.0) pg MCHC 34.6 (32-36) g/dL RDW Std Deviation 40.3 (35.1-43.9) fl RDW Coeff of Viktor 12.6 (11.6-14.6) % Plt Count 289 (150-450) K/mm3 MPV 10.2 (6.2-12.0) fl Fibrinogen 439 (203-444) mg/dl Sodium 135 (133-145) mmol/L Potassium 3.7 (3.3-5.1) mmol/L Chloride 101 (98-108) mmol/L Carbon Dioxide 20.5 L (21.0-32.0) mmol/L Anion Gap 13 (5-15) BUN 8 (4-19) mg/dL Creatinine 0.62 L (0.70-1.20) mg/dL Estim Creat Clear Calc 138.99 (50-250) ml/min Est GFR (MDRD) Non-Af 130 (>60) BUN/Creatinine Ratio 12.5 (10-20) RATIO Glucose 75 (70-99) mg/dL Calcium 9.1 (7.6-11.0) mg/dL Total Bilirubin < 0.15 (0.00-1.30) mg/dL AST 17 (<=31) U/L ALT 14 (<=34) U/L Alkaline Phosphatase 91 (35-104) U/L Total Protein 6.8 (5.9-8.4) g/dL Albumin 3.7 (3.5-5.0) g/dL Globulin 3.0 (2.2-4.2) g/dL Albumin/Globulin Ratio 1.2 (0.9-2.4) RATIO Lipase 24 (13-75) U/L Urine Color Straw (Yellow) Urine Clarity Clear (Clear) Urine pH 7.0 (5.0 - 8.0) Ur Specific [place] 1.005 (1.002-1.030) Urine Protein 15 H (Negative) mg/dl Urine Glucose (UA) Normal (Normal) mg/dl Urine Ketones Negative (Negative) mg/dl Urine Occult Blood Negative (Negative) /ul Urine Nitrite Negative (Negative) Urine Bilirubin Negative (Negative) mg/dL Urine Urobilinogen Normal (Normal) mg/dl Ur Leukocyte Esterase Negative (Negative) /ul U Random Total Protein 8.5 (0.0-12.0) mg/dL Urine Creatinine 56.10 (28.00-217.00) mg/dL Protein/Creatinin Ratio 151 (0-200) mg/g CRE Charges/Coding Multi Select Codes Urinary/Genital Urinary/Genital CPT Codes: 35315-45 non-stress test Interp Assessment & Plan (1) Back pain affecting : (2) GERD (gastroesophageal reflux disease): COMMENT: pepphud (3) Supervision of high-risk : QUALIFIERS: Trimester: second trimester Qualified Code(s): O09.92 - Supervision of high risk , unspecified, second trimester COMMENT: PRR, , MCKENZIE 02/20/25, BF Richard (4) : QUALIFIERS: Weeks of gestation: 30 weeks Qualified Code(s): Z3A.30 - 30 weeks gestation of COMMENT: declined NIPT & Carrier testing, nl anatomy (5) Anxiety: COMMENT: no meds, no counseling, doing well overall. wellbutrin in past. (6) Major depression: QUALIFIERS: Major depression recurrence: unspecified whether recurrent Active/Remission status: remission status unspecified Qualified Code(s): F32.9 - Major depressive disorder, single episode, unspecified (7) Bipolar disorder: QUALIFIERS: Active/Remission status: remission status unspecified Qualified Code(s): F31.9 - Bipolar disorder, unspecified
== END 2024-12-20 21:00 | disposition home or self-care (01) ==
LOC: WPOUT 16:53 → WP 16:54
PROVIDERS: PCP Internal Medicine; Referring Provider Advanced Practice Midwife; Visit Provider Advanced Practice Midwife
DX: O99.891 Other specified diseases and conditions complicating pregnancy (principal); M54.9 Dorsalgia, unspecified; Z3A.31 31 weeks gestation of pregnancy
CPT/HCPCS: 59025; 59050; 76816; 76819; 80053; 81002; 82570; 83690; 84156; 85027; 85384; 87086; 87088; 99221; G0378

== ENCOUNTER → 2025-01-25 | Outpatient (CLI) | payer BC, MEDICAID, SELFPAY | END | disposition home or self-care (01) | LOC: LABSPEC 16:12 | PROVIDERS: PCP Internal Medicine; Referring Provider Obstetrics & Gynecology; Visit Provider Obstetrics & Gynecology | DX: O09.92 Supervision of high risk pregnancy, unspecified, second trimester (principal); Z3A.00 Weeks of gestation of pregnancy not specified | CPT/HCPCS: 87081 ==

== ENCOUNTER 2025-02-20 15:17 | Inpatient (IN) | payer BC, MEDICAID, SELFPAY ==
[2025-02-20] VITALS (37 sets, daily range): BP systolic 83–136; BP diastolic 45–70; PULSE 73–110; RESP 16–18; TEMP 36.4–37.2; O2SAT 80–100; BMI 35.7
--- OUTSIDE RECORDS SUMMARY | 2025-02-20 14:19 | XMS RPT_ITS | CCD ---
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 special requests: [] Specific Issue/Plans Covid status: [] Flu vaccine: [] Tdap vaccine: given Rhogam: [] LARC form signed: declined movement and labor precautions reviewed. Problem list reviewed and updated with the most current plan of care details and appropriate orders placed. Relevant counseling for the gestational age provided. Continue routine care and follow up unless otherwise noted in visit notes/problem list details Initial Weight: Not Recorded Date -???-???-???-???-?? ?-???-???-???-???-? ??-???-???- EGA Weight BP Urine Prot -???-???-???-???-?? ?-???-???-???-???-? ??-???-???- Glucose FHR FuHt Pres Dilation -???-???-???-???-?? ?-???-???-???-???-? ??-???-???- Effaced St Visit Note 07/15/24 -???-???-???-???-?? ?-???-???-???-???-? ??-???-???- 8w 4d 162 lb 127/78 -???-???-???-???-?? ?-???-???-???-???-? ??-???-???- 181 -???-???-???-???-?? ?-???-???-???-???-? ??-???-???- KW- CRL cons with dates. Accepts NIPT 08/13/24 -???-???-???-???-?? ?-???-???-???-???-? ??-???-???- 12w 5d 162 lb 6 oz 122/71 Negative -???-???-???-???-?? ?-???-???-???-???-? ??-???-???- Negative 163 -???-???-???-???-?? ?-???-???-???-???-? ??-???-???- -No VB. N ausea persists/sharon sent. Br US confirm FHT. PN labs today 08/24/24 -???-???-???-???-?? ?-???-???-???-???-? ??-???-???- 14w 2d 163 lb 112/76 Negative -???-???-???-???-?? ?-???-???-???-???-? ??-???-???- Negative 150 -???-???-???-???-?? ?-???-???-???-???-? ??-???-???- SM- seen sec ondary to spotting over the weeknd seen in ER and viable IUP seen no abnormalities 09/11/24 -???-???-???-???-?? ?-???-???-???-???-? ??-???-???- 16w 6d Negative -???-???-???-???-?? ?-???-???-???-???-? ??-???-???- Negative 153 -???-???-???-???-?? ?-???-???-???- (more content not included)... 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 Office Visit Reporton 12-28-2024 [facility] Office Visit Report [facility] [address] [place] [address], [address] [place] [address] OFFICE VISIT Date of Service: 12/28/24 MR#: [id number] Acct: [id number] Name: ERIKA PINEDA Rep #: [id number] : 2005 Provider: MANINDER Norris ams Age/Sex: 19/F Location: [email or web address] Status: Signed Intake Vital Signs 08/13/24 08:33 12/18/24 09:39 12/20/24 17:13 12/28/24 14:02 Height 5 ft 1 in 5 ft 1 in 5 ft 1 in 5 ft 1 in Weight: 180 lb BMI 34.0 BP 94/60 Intake Visit Reasons: 32 wk ob Chief Complaint: 32 wk OB Cath Lab Required: No Is patient in pain?: No Allergies No Known Allergies Allergy (Verified 12/28/24 14:03) Medications ???Medication ???Instructions ???Recorded ???Confirmed ???Type PNV 153-FA 400 mcg-om3 35 mg-dha 1 tab PO DAILY 07/03/24 12/28/24 H istory 25 mg-epa 5 mg-fish oil chew tablet ondansetron 4 mg disintegrating 4 mg PO Q6H PRN nausea and 5 12/28/24 Rx tablet vomiting #30 tabs famotidine 20 mg tablet (Pepcid) 20 mg PO BID #60 tabs 12/18/2408/12 Rx Last Menstrual Period: 05/16/24 : No PFSH PFSH Medical History Irregular menstrual bleeding Seasonal allergies Hx of trauma Surgical History H/O oral surgery Social History adopted: No household members: family current occupational status: employed current occupation: [employer] pets and animals: Yes (Avoid litterbox) pets and animals: cat(s) and dog(s) history of recent travel: No sexually active: Yes Smoking Status: Former smoker quit date: 06/02/24 Electronic Cigarette Use: with nicotine alcohol intake: never substance use type: does not use well-balanced diet: about half the time caffeine: No eating out: 1-3 times/week during the past year weight has: remained stable what type of physical activity do you participate in: none susana/christian: None seatbelt use: always do you feel safe at home: Yes additional social history: BF Richard- Ecco Seal History 1 Elective abortions Hx Para 0 Spontaneous abortions Hx # Term Pregnancies Ectopic pregnancies Hx # Pregnancies Multiple births # of living children HPI 32 wk ob Details: ERIKA PINEDA is a 19 year old who presents for routine OB visit. OB Visit MCKENZIE Calculator Estimated Delivery Date Method Current WG Current Estimate 02/20/25 LMP (Certain) 32w 2d Other Estimates 02/24/25 Ultrasound #1 31w 5d Expected Delivery Route/Plan abor Preferences- CB/BF classes: [] labor support person: [] labor intervention preferences: [] pain management options preferred:open to hydrotherapy, nitrous, epidural cut cord/dad catch: [] : [] PP control planned: [] discussed possible routes of delivery and associated risks: [] special requests: [] Specific Issue/Plans Covid status: [] Flu vaccine: [] Tdap vaccine: given Rhogam: [] LARC form signed: declined movement and labor precautions reviewed. Problem list reviewed and updated with the most current plan of care details and appropriate orders placed. Relevant counseling for the gestational age provided. Continue routine care and follow up unless otherwise noted in visit notes/problem list details Initial Weight: Not Recorded Date -???-???-???-???-?? ?-???-???-???-???-? ??-???-???- EGA Weight BP Urine Prot -???-???-???-???-?? ?-???-???-???-???-? ??-???-???- Glucose FHR FuHt Pres Dilation -???-???-???-???-?? ?-???-???-???-???-? ??-???-???- Effaced St Visit Note 07/15/24 -???-???-???-???-?? ?-???-???-???-???-? ??-???-???- 8w 4d 162 lb 127/78 -???-???-???-???-?? ?-???-???-???-???-? ??-???-???- 181 -???-???-???-???-?? ?-???-???-???-???-? ??-???-???- KW- CRL cons with dates. Accepts NIPT 08/13/24 -???-???-???-???-?? ?-???-???-???-???-? ??-???-???- 12w 5d 162 lb 6 oz 122/71 Negative -???-???-???-???-?? ?-???-???-???-???-? ??-???-???- Negative 163 -???-???-???-???-?? ?-???-???-???-???-? ??-???-???- MH-No VB. N shar snowden/sharon sent. Br US confirm FHT. PN labs today 08/24/24 -???-???-???-???-?? ?-???-???-???-???-? ??-???-???- 14w 2d 163 lb 112/76 Negative -???-???-???-???-?? ?-???-???-???-???-? ??-???-???- Negative 150 -???-???-???-???-?? ?-???-???-???-???-? ??-???-???- SM- seen sec ondary to spotting over the weeknd seen in ER and viable IUP seen no abnormalities 09/11/24 -???-???-???-???-?? ?-???-???-???-???-? ??-???-???- 16w 6d Negative -???-???-???-???-?? ?-???-???-???-???-? ??-???-???- Negative 153 -???-???-???-???-?? ?-???-???-???-???-? ??-???-???- KW- no vb/cr amping. +flutters. anatomy US ord (more content not included)... Normal [facility] Urine Cultureon 12-23-2024 URC Mixed Gram Positive Organisms [place] Count 11,000-25,000 MIXC Mixed contaminants. Submit a new specimen if indicated. Normal [facility] Comment on above: Performed By: #### M 100.4624 #### [facility] [address] [place], [address] OB Triage Progress Noteon OB Triage Progress Note [facility] Medical Records Department [address] [place] [address] OB Triage Progress Note 12/21/24 0800 MR#: [id number] Acct: [id number] Name: ERIKA PINEDA Rep #: [id number] : 2005 19 From: Bernarda Weber CNM PCP: Dr. Jorge Bearden MD Status:DEP CLI Y DOS: Location: [facility] Progress Notes Date of Service: 12/20/24 Progress Note: Patient presents for triage evaluation secondary to back pain at 31.1 weeks FHT: 135 Moderate variability reactive no decelerations category I tracing [place]: no Contractions Assessment and plan: labs normal, growth and BPP reassuring, Reactive NST, reassuring maternal and status patient discharged to home to follow-up in office saturday or if needed. See problem list details for additional plan information. Laboratory Studies: Laboratory Tests 12/20/24 12/20/24 12/20/24 Range/Units 18:25 17:15 16:55 WBC 14.6 H (4.4-11.0) K/mm3 RBC 3.84 L (4.2-5.4) M/mm3 Hgb 11.6 L (12.0-15.0) g/dL Hct 33.5 L (37-47) % MCV 87.2 (81-99) fL MCH 30.2 (27.0-32.0) pg MCHC 34.6 (32-36) g/dL RDW Std Deviation 40.3 (35.1-43.9) fl RDW Coeff of Viktor 12.6 (11.6-14.6) % Plt Count 289 (150-450) K/mm3 MPV 10.2 (6.2-12.0) fl Fibrinogen 439 (203-444) mg/dl Sodium 135 (133-145) mmol/L Potassium 3.7 (3.3-5.1) mmol/L Chloride 101 (98-108) mmol/L Carbon Dioxide 20.5 L (21.0-32.0) mmol/L Anion Gap 13 (5-15) BUN 8 (4-19) mg/dL Creatinine 0.62 L (0.70-1.20) mg/dL Estim Creat Clear Calc 138.99 (50-250) ml/min Est GFR (MDRD) Non-Af 130 (>60) BUN/Creatinine Ratio 12.5 (10-20) RATIO Glucose 75 (70-99) mg/dL Calcium 9.1 (7.6-11.0) mg/dL Total Bilirubin < 0.15 (0.00-1.30) mg/dL AST 17 (<=31) U/L ALT 14 (<=34) U/L Alkaline Phosphatase 91 (35-104) U/L Total Protein 6.8 (5.9-8.4) g/dL Albumin 3.7 (3.5-5.0) g/dL Globulin 3.0 (2.2-4.2) g/dL Albumin/Globulin Ratio 1.2 (0.9-2.4) RATIO Lipase 24 (13-75) U/L Urine Color Straw (Yellow) Urine Clarity Clear (Clear) Urine pH 7.0 (5.0 - 8.0) Ur Specific Turpin 1.005 (1.002-1.030) Urine Protein 15 H (Negative) mg/dl Urine Glucose (UA) Normal (Normal) mg/dl Urine Ketones Negative (Negative) mg/dl Urine Occult Blood Negative (Negative) /ul Urine Nitrite Negative (Negative) Urine Bilirubin Negative (Negative) mg/dL Urine Urobilinogen Normal (Normal) mg/dl Ur Leukocyte Esterase Negative (Negative) /ul U Random Total Protein 8.5 (0.0-12.0) mg/dL Urine Creatinine 56.10 (28.00-217.00) mg/dL Protein/Creatinin Ratio 151 (0-200) mg/g CRE Charges/Coding Multi Select Codes Urinary/Genital Urinary/Genital CPT Codes: 57072-11 non-stress test Interp Assessment Plan (1) Back pain affecting : (2) GERD (gastroesophageal reflux disease): COMMENT: pepmaye (3) Supervision of high-risk : QUALIFIERS: Trimester: second trimester Qualified Code(s): O09.92 - Supervision of high risk , unspecified, second trimester COMMENT: PRR, , MCKENZIE 02/20/25, BF Richard (4) : QUALIFIERS: Weeks of gestation: 30 weeks Qualified Code(s): Z3A.30 - 30 weeks gestation of COMMENT: declined NIPT Carrier testing, nl anatomy (5) Anxiety: COMMENT: no meds, no counseling, doing well overall. wellbutrin in past. (6) Major depression: QUALIFIERS: Major depression recurrence: unspecified whether recurrent Active/Remission status: remission status unspecified Qualified Code(s): F32.9 - Major depressive disorder, single episode, unspecified (7) Bipolar disorder: QUALIFIERS: Active/Remission status: remission status unspecified Qualified Code(s): F31.9 - Bipolar disorder, unspecified 12/21/24 0802 Date Bernarda Weber CNM Cosigner Signature (if applicable): Date __ CC: MANINDER Weber; Dr. Jorge Bearden MD Signed Normal [facility] Anion gap in Serum or Plasma Ordered By: Bernarda Weber on 12-20-2024 Anion gap [Moles/Vol] 13 mmol/L 5-15 [facility] BUN/creatinine ratioOrdered By: Bernarda Weber on 12-20-2024 Urea nitrogen/Creatinine [Mass ratio] 12.5 mg/mg 10-20 [facility] Bilirubin Test strip Ql (U)O rdered By: Bernarda Weber on 12-20-2024 Bilirubin Ql (U) Negative Negative [facility] Bilirubin, totalOrdered By: Bernarda Weber on 12-20-2024 Bilirubin [Mass/Vol] mg/dL 0.00-1.30 [facility] Biophysical Prof W/O Non Str eson 12-20-2024 Biophysical Prof W/O Non Stres [facility] Imaging Services [address] [place] [address] Biophysical Prof W/O Non Stres MR#: [id number] Acct: [id number] Name: ERIKA PINEDA Rep #: [id number] : 2005 F 19 From: Anderson Lr MD PCP: Dr. Jorge Bearden MD Status: DEP CLI Study: Biophysical Prof W/O Non Stres Date of Exam: 0 12/20/24 Exam# [id number] Ordering Dr: Bernarda Weber CNM PROCEDURE: BIOPHYSICAL PROF W/O NON STRES 12/20/2024 REASON FOR EXAM: ABD PAIN TECHNIQUE: High resolution obstetric ultrasound performed using a 2D transducer. Standard views obtained, including biometry, anatomy survey, and Doppler studies. FINDINGS Single live intrauterine with heart rate 148 beats per minute. Presentation is cephalic. NAHEED 15.8 cm, largest fluid pocket 5.9 x 4.1 cm Posterior placenta grade 1, not low-lying, appears within limits. Estimated age by LMP 31 weeks 1 day, MCKENZIE 02/20/2025 Breathing movements 2/2 Gross body movements 2/2 tone 2/2 Amniotic fluid volume 2/2 US/Biophysical Prof W/O Non Stres IMPRESSION: Single live intrauterine as above with biophysical profile of 03/26. Reading Location: [facility] CC: MANINDER Weber; Dr. Jorge Bearden MD Rn Postpartum: Signed Normal [facility] CBC-Complete Blood Cnt No Di ffon 12-20-2024 Erythrocyte distribution width (RBC) [Ratio] 12.6 % Normal 11.6-14.6 [facility] Comment on above: Performed By: #### M 100.2200 #### [facility] [address] [place], [address] Hematocrit (Bld) [Volume fraction] 33.5 % Low 37-47 [facility] Comment on above: Performed By: #### M 100.2200 #### [facility] [address] [place], [address] Hemoglobin (Bld) [Mass/Vol] 11.6 g/dL Low 12.0-15.0 [facility] Comment on above: Performed By: #### M 100.2200 #### [facility] [address] [place], [address] MCH (RBC) [Entitic mass] 30.2 pg Normal 27.0-32.0 [facility] Comment on above: Performed By: #### M 100.2200 #### [facility] [address] [place], [address] MCHC (RBC) [Mass/Vol] 34.6 g/dL Normal 32-36 [facility] Comment on above: Performed By: #### M 100.2200 #### [facility] [address] [place], [address] MCV (RBC) [Entitic vol] 87.2 fL Normal 81-99 [facility] Comment on above: Performed By: #### M 100.2200 #### [facility] [address] [place], [address] Platelet mean volume (Bld) [Entitic vol] 10.2 fL Normal 6.2-12.0 [facility] Comment on above: Performed By: #### M 100.2200 #### [facility] [address] [place], [address] Platelets (Bld) [#/Vol] 289 10*3/uL Normal 150-450 [facility] Comment on above: Performed By: #### M 100.2200 #### [facility] [address] [place], [address] RBC (Bld) [#/Vol] 3.84 10*6/uL Low 4.2-5.4 [facility] Comment on above: Performed By: #### M 100.2200 #### [facility] [address] [place], [address] RDW SD 40.3 fl Normal 35.1-43.9 [facility] Comment on above: Performed By: #### M 100.2200 #### [facility] [address] [place], [address] WBC (Bld) [#/Vol] 14.6 10*3/uL High 4.4-11.0 [facility] Comment on above: Performed By: #### M 100.2200 #### [facility] [address] [place], [address] Carbon dioxide, total [Moles /volume] in Central venous bloodOrdered By: Bernarda Weber on 12-20-2024 CO2 [Moles/Vol] 20.5 mmol/L Low 21.0-32.0 [facility] Chloride assayOrdered By: Gustavo Weber on 12-20-2024 Chloride [Moles/Vol] 101 mmol/L 98-108 [facility] Comprehensive Metabolic Prof ilon 12-20-2024 Albumin [Mass/Vol] 3.7 g/dL Normal 3.5-5.0 [facility] Comment on above: Performed By: #### M 100.2200 #### [facility] [address] [place], [address] Albumin/Globulin [Mass ratio] 1.2 {ratio} Normal 0.9-2.4 [facility] Comment on above: Performed By: #### M 100.2200 #### [facility] [address] [place], [address] ALK PHOS 91 U/L Normal 35-104 [facility] Comment on above: Performed By: #### M 100.2200 #### [facility] [address] [place], [address] ALT [Catalytic activity/Vol] 14 U/L Normal <=34 [facility] Comment on above: Performed By: #### M 100.2200 #### [facility] [address] [place], [address] AST [Catalytic activity/Vol] 17 U/L Normal <=31 [facility] Comment on above: Performed By: #### M 100.2200 #### [facility] [address] [place], [address] BUN/CRE 12.5 RATIO Normal 10-20 [facility] Comment on above: Performed By: #### M 100.2200 #### [facility] [address] [place], [address] Calcium [Mass/Vol] 9.1 mg/dL Normal 7.6-11.0 [facility] Comment on above: Performed By: #### M 100.2200 #### [facility] [address] [place], [address] Chloride [Moles/Vol] 101 mmol/L Normal 98-108 [facility] Comment on above: Performed By: #### M 100.2200 #### [facility] [address] [place], [address] CO2 [Moles/Vol] 20.5 mmol/L Low 21.0-32.0 [facility] Comment on above: Performed By: #### M 100.2200 #### [facility] [address] [place], [address] Creatinine [Mass/Vol] 0.62 mg/dL Low 0.70-1.20 [facility] Comment on above: Performed By: #### M 100.2200 #### [facility] [address] [place], [address] ECRCL 138.99 ml/min Normal 50-250 [facility] Comment on above: Performed By: #### M 100.2200 #### [facility] [address] [place], [address] GAP 13 Normal 5-15 [facility] Comment on above: Performed By: #### M 100.2200 #### [facility] [address] [place], [address] GFR/1.73 sq M.predicted among non-blacks MDRD (S/P/Bld) [Vol rate/Area] 130 mL/min/{1.73_m2} Normal >60 [facility] Comment on above: Result Comment: mL/m in/1.73m2 CKD-EPI Creatinine Equation (2020) Performed By: #### M 100.2200 #### [facility] [address] [place], [address] Globulin (S) [Mass/Vol] 3.0 g/dL Normal 2.2-4.2 [facility] Comment on above: Performed By: #### M 100.2200 #### [facility] [address] [place], [address] Glucose [Mass/Vol] 75 mg/dL Normal 70-99 [facility] Comment on above: Performed By: #### M 100.2200 #### [facility] [address] [place], [address] Potassium [Moles/Vol] 3.7 mmol/L Normal 3.3-5.1 [facility] Comment on above: Performed By: #### M 100.2200 #### [facility] [address] [place], [address] Sodium [Moles/Vol] 135 mmol/L Normal 133-145 [facility] Comment on above: Performed By: #### M 100.2200 #### [facility] [address] [place], [address] T BILI < 0.15 Normal 0.00-1.30 [facility] Comment on above: Performed By: #### M 100.2200 #### [facility] [address] [place], [address] T PROT 6.8 g/dL Normal 5.9-8.4 [facility] Comment on above: Performed By: #### M 100.2200 #### [facility] [address] [place], [address] Urea nitrogen [Mass/Vol] 8 mg/dL Normal 4-19 [facility] Comment on above: Performed By: #### M 100.2200 #### [facility] [address] [place], [address] Erythrocyte distribution wid th ratioOrdered By: Bernarda Weber on 12-20-2024 Erythrocyte distribution width (RBC) [Ratio] 12.6 % 11.6-14.6 [facility] Erythrocyte distribution wid th standard deviationOrdered By: Bernarda Weber on 12-20-2024 Erythrocyte distribution width (RBC) [Ratio] 40.3 fl 35.1-43.9 [facility] Fibronectinon 12-21-19 25 fFIBRONECTIN Normal [facility] Comment on above: Result Comment: Cancharito elled via OM: Ordered Performed By: #### M 100.2200 #### [facility] [address] [place], [place], [address] RECORD KIT LOT# Normal [facility] Comment on above: Result Comment: Beverly elled via OM: Ordered Performed By: #### M 100.2200 #### [facility] [address] [place], [address] Fibrinogenon 12-20-2024 FIBRINOGEN 439 mg/dl Normal 203-444 [facility] Comment on above: Performed By: #### M 100.2200 #### [facility] [address] [place], [place], [address] Glomerular filtration rate ( GFR) estimation/1.73 sq m using serum, plasma, or whole bOrdered By: Bernarda Weber on 12-20-2024 GFR/1.73 sq M.predicted among non-blacks MDRD (S/P/Bld) [Vol rate/Area] 130 mL/min/{1.73_m2} >60 [facility] Comment on above: mL/min/1.73m2 CKD-EP I Creatinine Equation (2020) Hematocrit Auto (Bld) [Volum e fraction]Ordered By: Bernarda Weber on 12-20-2024 Hematocrit (Bld) [Volume fraction] 33.5 % Low 37-47 [facility] Hemoglobin measurementOrdere d By: Bernarda Weber on 12-20-2024 Hemoglobin (Bld) [Mass/Vol] 11.6 g/dL Low 12.0-15.0 [facility] Ketones Test strip Ql (U)Ord ered By: Bernarda Weber on 12-20-2024 Ketones Ql (U) Negative Negative [facility] Laboratory - Chemistry and C hemistry - challengeOrdered By: Bernarda Weber on 12-20-2024 AST [Catalytic activity/Vol] 17 U/L <32 [facility] Lipaseon 12-20-2024 Lipase [Catalytic activity/Vol] 24 U/L Normal 13-75 [facility] Comment on above: Result Comment: Jyoti salazar note: LIPASE revised reference range effective 22. New Lipase methodology. Expected to produce lower values than the previous assay method. NEW Reference Range: 13 - 75 U/L Performed By: #### M 100.2200 #### [facility] [address] [place], [place], [address] Lipase measurementOrdered By : Bernarda Weber on 12-20-2024 Lipase [Catalytic activity/Vol] 24 U/L 13-75 [facility] Comment on above: Please note:LIPASE r evised reference range effective 22. New Lipase methodology. Expected to produce lower values than the previous assay method. NEW Reference Range: 13 - 75 U/L MCV (mean corpuscular volume ) determinationOrdered By: Bernarda Weber on 12-20-2024 MCV (RBC) [Entitic vol] 87.2 fL 81-99 [facility] Mean corpuscular hemoglobin (MCH) determinationOrdered By: Bernarda Weber on 12-20-2024 MCH (RBC) [Entitic mass] 30.2 pg 27.0-32.0 [facility] Mean corpuscular hemoglobin concentration (MCHC) determinationOrdered By: Bernarda Weber on 12-20-2024 MCHC (RBC) [Mass/Vol] 34.6 g/dL 32-36 [facility] Mean platelet volume determi nationOrdered By: Bernarda Weber on 12-20-2024 Platelet mean volume (Bld) [Entitic vol] 10.2 fL 6.2-12.0 [facility] Nitrite Test strip Ql (U)Ord ered By: Bernarda Weber on 12-20-2024 Nitrite Ql (U) Negative Negative [facility] OB Limited With Biometricson 12-20-2024 OB Limited With Biometrics [facility] Imaging Services [address] [place], [place] [id number] OB Limited With Biometrics MR#: [id number] Acct: [id number] Name: ERIKA PINEDA Rep #: [id number] : 2005 F 19 From: Anderson Lr MD PCP: Dr. Jorge Bearden MD Status: DEP CLI Study: OB Limited With Biometrics Date of Exam: 12/20 Exam# [id number] Ordering Dr: Bernarda Weber CNM PROCEDURE: OB LIMITED WITH BIOMETRICS 12/20/2024 REASON FOR EXAM: SPECIFICALLY LOOKING AT PLACENTA DO ABD PAIN TECHNIQUE: High resolution obstetric ultrasound performed using a 2D transducer. Standard views obtained, including biometry, anatomy survey, and Doppler studies. FINDINGS Transabdominal imaging. Single live intrauterine cardiac activity 141 beats per minute. Presentation is cephalic. Cervix not visualized. NAHEED 15.0 cm, maximum vertical pocket 3.9 cm. Posterior placenta appears within limits, not low-lying, grade 1. No evidence of abruption identified. DIMENSIONS: Biparietal Diameter: 8.0 cm/32 weeks 1 day, 70% Head Circumference: 30.06 cm/33 weeks 2 days, 72% Abdominal Circumference: 26.85 cm/31 weeks 0 days, 41% Femur Length: 5.55 cm/29 weeks 2 days, 3.5% FL/AC 21%, FL/HC 18%, CI 76%, HC/AC 1.12 FL/BPD 69.30% (71.00 87.00%) OFD 10.46 cm, 32 weeks 6 days, 97.30 percentile ESTIMATED WEIGHT: 1617 g +/-243 g ESTIMATED WEIGHT PERCENTILE (24+ weeks): 25% Estimated age by current ultrasound 31 weeks 6 days, MCKENZIE 02/15/2025 age by LMP 31 weeks 1 day, MCKENZIE 02/20/2025 US/OB Limited With Biometrics IMPRESSION: Single live intrauterine with biometry as above. FL/BPD 69.30% (71.00 87.00%) OFD 10.46 cm, 32 weeks 6 days, 97.30 percentile Reading Location: [id number] CC: MANINDER Weber; Dr. Jorge Bearden MD Rn Postpartum: Signed Normal [facility] Platelet countOrdered By: Gustavo Weber on 12-20-2024 Platelets (Bld) [#/Vol] 289 10*3/uL 150-450 [facility] Potassium measurement (mass/ volume)Ordered By: Bernarda Weber on 12-20-2024 Potassium (Unsp spec) [Mass/Vol] 3.7 mmol/L 3.3-5.1 [facility] Protein Test strip Ql (U)Ord ered By: Bernarda Weber on 12-20-2024 Protein Ql (U) 15 mg/dl High Negative [facility] Protein+Creatinine Ratio,Uri neon 12-20-2024 PROT:CRE RATIO 151 mg/g CRE Normal 0-200 [facility] Comment on above: Performed By: #### M 100.2200 #### [facility] [address] [place], [address] Protein (U) [Mass/Vol] 8.5 mg/dL Normal 0.0-12.0 [facility] Comment on above: Performed By: #### M 100.2200 #### [facility] [address] [place], [address] UR CREAT 56.10 mg/dL Normal 28.00-217.00 [facility] Comment on above: Performed By: #### M 100.2200 #### [facility] [address] [place], [address] RBC Auto (Bld) [#/Vol]Ordere d By: Bernarda Weber on 12-20-2024 RBC (Bld) [#/Vol] 3.84 10*6/uL Low 4.2-5.4 [facility] Random urine creatinine james urement (mass/volume)Ordered By: Bernarda Weber on 12-20-2024 Creatinine Unsp time (U) [Mass/Vol] 56.10 mg/dL 28.00-217.00 [facility] Serum creatinine measurement (mass/volume)Ordered By: Bernarda Weber on 12-20-2024 Creatinine [Mass/Vol] 0.62 mg/dL Low 0.70-1.20 [facility] Serum globulin measurementOr dered By: Bernarda Weber on 12-20-2024 Globulin (S) [Mass/Vol] 3.0 g/dL 2.2-4.2 [facility] Serum glucose measurement (m ass/volume)Ordered By: Bernarda Weber on 12-20-2024 Glucose [Mass/Vol] 75 mg/dL 70-99 [facility] Serum or plasma alanine lentz otransferase (ALT) measurementOrdered By: Bernarda Weber on 12-20-2024 ALT [Catalytic activity/Vol] 14 U/L <35 [facility] Serum or plasma albumin james urement (mass/volume)Ordered By: Bernarda Weber on 12-20-2024 Albumin [Mass/Vol] 3.7 g/dL 3.5-5.0 [facility] Serum or plasma albumin/glob ulin mass ratioOrdered By: Bernarda Weber on 12-20-2024 Albumin/Globulin [Mass ratio] 1.2 {ratio} 0.9-2.4 [facility] Serum or plasma alkaline rudy sphatase measurementOrdered By: Bernarda Weber on 12-20-2024 ALP [Catalytic activity/Vol] 91 U/L 35-104 [facility] Serum or plasma calcium james urement (mass/volume)Ordered By: Bernarda Weber on 12-20-2024 Calcium [Mass/Vol] 9.1 mg/dL 7.6-11.0 [facility] Serum or plasma urea nitroge n measurement (mass/volume)Ordered By: Bernarda Weber on 12-20-2024 Urea nitrogen [Mass/Vol] 8 mg/dL 4-19 [facility] Sodium levelOrdered By: Tennille Weber on 12-20-2024 Sodium [Moles/Vol] 135 mmol/L 133-145 [facility] Total proteinOrdered By: Donny Weber on 12-20-2024 Protein [Mass/Vol] 6.8 g/dL 5.9-8.4 [facility] Urinalysis, Routine (Dipstic k)on 12-20-2024 BILIRUBIN URINE Negative Normal Negative [facility] Comment on above: Order Comment: CLEAN CATCH Performed By: #### L 501.0900, L501.4405, L501.1400, L501.4100, L501.1105, L100.0500 #### [facility] [place], [address] Clarity (U) Clear Normal Clear [facility] Comment on above: Order Comment: CLEAN CATCH Performed By: #### L 501.0900, L501.4405, L501.1400, L501.4100, L501.1105, L100.0500 #### [facility] [address] [place], [address] Color (U) Straw Normal Yellow [facility] Comment on above: Order Comment: CLEAN CATCH Performed By: #### L 501.0900, L501.4405, L501.1400, L501.4100, L501.1105, L100.0500 #### [facility] [address] [place], [address] GLUCOSE, UR Normal Normal Normal [facility] Comment on above: Order Comment: CLEAN CATCH Performed By: #### L 501.0900, L501.4405, L501.1400, L501.4100, L501.1105, L100.0500 #### [facility] [address] [place], [address] KETONE UR Negative Normal Negative [facility] Comment on above: Order Comment: CLEAN CATCH Performed By: #### L 501.0900, L501.4405, L501.1400, L501.4100, L501.1105, L100.0500 #### [facility] [address] [place], [address] LEUK ESTERASE Negative Normal Negative [facility] Comment on above: Order Comment: CLEAN CATCH Performed By: #### L 501.0900, L501.4405, L501.1400, L501.4100, L501.1105, L100.0500 #### [facility] [address] [place], [address] Nitrite Ql (U) Negative Normal Negative [facility] Comment on above: Order Comment: CLEAN CATCH Performed By: #### L 501.0900, L501.4405, L501.1400, L501.4100, L501.1105, L100.0500 #### [facility] [address] [place], [address] OCCULT BLOOD-UR Negative Normal Negative [facility] Comment on above: Order Comment: CLEAN CATCH Performed By: #### L 501.0900, L501.4405, L501.1400, L501.4100, L501.1105, L100.0500 #### [facility] [address] [place], [address] pH UR 7.0 Normal 5.0 - 8.0 [facility] Comment on above: Order Comment: CLEAN CATCH Performed By: #### L 501.0900, L501.4405, L501.1400, L501.4100, L501.1105, L100.0500 #### [facility] [address] [place], [address] PROT DIPSTX 15 mg/dl Abnormal Negative [facility] Comment on above: Order Comment: CLEAN CATCH Performed By: #### L 501.0900, L501.4405, L501.1400, L501.4100, L501.1105, L100.0500 #### [facility] [address] [place], [address] SP.GR. DIPSTX 1.005 Normal 1.002-1.030 [facility] Comment on above: Order Comment: CLEAN CATCH Performed By: #### L 501.0900, L501.4405, L501.1400, L501.4100, L501.1105, L100.0500 #### [facility] [address] [place], [address] UROBILI Normal Normal Normal [facility] Comment on above: Order Comment: CLEAN CATCH Performed By: #### L 501.0900, L501.4405, L501.1400, L501.4100, L501.1105, L100.0500 #### [facility] [address] [place], [address] Urine clarityOrdered By: Donny Weber on 12-20-2024 Clarity (U) Clear Clear [facility] Urine color determinationOrd ered By: Bernarda Weber on 12-20-2024 Color (U) Straw Yellow [facility] Urine cultureOrdered By: Donny Weber on 12-20-2024 Bacteria identified Cx Nom (U) Positive Abnormal [facility] Urine glucose detectionOrder ed By: Bernarda Weber on 12-20-2024 Glucose Ql (U) Normal mg/dl Normal [facility] Urine leukocyte esterase det ection by dipstickOrdered By: Bernarda Weber on 12-20-2024 Leukocyte esterase Test strip Ql (U) Negative Negative [facility] Urine pHOrdered By: Bernarda gibbs on 12-20-2024 pH (U) 7.0 [pH] 5.0 - 8.0 [facility] Urine protein measurement (m ass/volume)Ordered By: Bernarda Weber on 12-20-2024 Protein (U) [Mass/Vol] 8.5 mg/dL 0.0-12.0 [facility] Urine protein/creatinine mas s ratioOrdered By: Bernarda Weber on 12-20-2024 Protein/Creatinine (U) [Mass ratio] 151 mg/g CRE 0-200 [facility] Urine specific gravity measu rementOrdered By: Bernarda Weber on 12-20-2024 Specific gravity (U) [Rel density] 1.005 1.002-1.030 [facility] Urine urobilinogen measureme ntOrdered By: Bernarda Weber on 12-20-2024 Urobilinogen Ql (U) Normal mg/dl Normal [facility] White blood cell (WBC) count Ordered By: Bernarda Weber on 12-20-2024 WBC (Bld) [#/Vol] 14.6 10*3/uL High 4.4-11.0 [facility] Office Visit Reporton 12-18-2024 [facility] Office Visit Report [facility], [address] [place] [address] OFFICE VISIT Date of Service: 12/18/24 MR#: [id number] Acct: [id number] Name: ERIKA PINEDA Rep #: [id number] : 2005 Provider: Dr. Mar lim MD Age/Sex: 19/F Location[place] [facility] [place] Status: Signed with Addenda ADDENDUM by Dr. Mar Quigley MD on 01/05/25 at 1811 Assessment and Plan Assessment and Plan (1) Supervision of high-risk : Status: Acute Qualifiers: Trimester: second trimester Qualified Code(s): O09.92 - Supervision of high risk , unspecified, second trimester Comment: PRR, , MCKENZIE 02/20/25, BF Richard (2) : Status: Acute Qualifiers: Weeks of gestation: 32 weeks Qualified Code(s): Z3A.32 - 32 weeks gestation of Comment: declined NIPT Carrier testing, nl anatomy (3) Anxiety: Status: Acute Comment: no meds, no counseling, doing well overall. wellbutrin in past. (4) Major depression: Status: Acute Qualifiers: Major depression recurrence: unspecified whether recurrent Active/Remission status: remission status unspecified Qualified Code(s): F32.9 - Major depressive disorder, single episode, unspecified (5) Bipolar disorder: Status: Acute Qualifiers: Active/Remission status: remission status unspecified Qualified Code(s): F31.9 - Bipolar disorder, unspecified (6) GERD (gastroesophageal reflux disease): Status: Acute Comment: pepcid Orders: Orders POC Urinalysis 2 Dip (Clinic) 12/18/24 Tdap Immunization 12/18/24 Z23 - Encounter for immunization Medications: New Boostrix Tdap (diphth,pertus(acel l),tetanus) 0.5 mL IM ONCE 1 mL 0RF NS Z23 - Encounter for immunization famotidine (Pepcid) 20 mg PO BID 60 tabs 6RF Plan Details Additional Comments: [facility]: 10904-219-50 Lot: [id number] Exp: 12/16/2026 Site: left deltoid Dose: 0.5 ml 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: [employer] 01/05/25 1811 Date Mar Quigley MD cc: * Signed Intake Vital Signs 08/13/24 08:33 12/01/24 17:58 12/18/24 09:39 Height 5 ft 1 in 5 ft 1 in 5 ft 1 in Weight: 177 lb 6 oz BMI 33.5 BP 107/71 Intake Visit Reasons: 30 wk ob Cath Lab Required: No Is patient in pain?: No Allergies No Known Allergies Allergy (Verified 12/18/24 09:47) Medications ???Medication ???Instructions ???Recorded ???Confirmed ???Type PNV 153-FA 400 mcg-om3 35 mg-dha 1 tab PO 07/03/24 12/18/24 History 25 mg-epa 5 mg-fish oil chew tablet ondansetron 4 mg disintegrating 4 mg PO Q6H PRN nausea and 5 12/18/24 Rx tablet vomiting #30 tabs famotidine 20 mg tablet (Pepcid) 20 mg PO BID #60 tabs 12/18/2410/13 Rx Last Menstrual Period: 05/16/24 Zika: Zika virus screening: Negative : No PFSH PFSH Medical History Irregular menstrual bleeding Seasonal allergies Hx of trauma Surgical History H/O oral surgery Social History adopted: No household members: family current occupational status: employed current occupation: [employer] pets and animals: Yes (Avoid litterbox) pets and animals: cat(s) and dog(s) history of recent travel: No sexually active: Yes Smoking Status: Former smoker quit date: 06/02/24 Electronic Cigarette Use: with nicotine alcohol intake: never substance use type: does not use well-balanced diet: about half the time caffeine: No eating out: 1-3 times/week during the past year weight has: remained stable what type of physical activity do you participate in: none susana/christian: None seatbelt use: always do you feel safe at home: Yes additional social history: BF Richard- [employer] History 1 Elective abortions Hx Para 0 Spontaneous abortions Hx # Term Pregnancies Ectopic pregnancies Hx # Pregnancies Multiple births # of living children HPI 30 wk ob Details: ERIKA PINEDA is a 19 year old who presents for routine OB visit. OB Visit MCKENZIE Calculator Estimated Delivery Date Method Current WG Current Estimate 02/20/25 LMP (Certain) 30w 6d Other Estimates 02/24/25 Ultrasound #1 30w 2d Expected Delivery Route/Plan abor Preferences- CB/BF classes: [] labor support person: [] labor intervention preferences: [] pain management options preferred:open to hydrotherapy, nitrous, epidural cut cord/dad catch: [] : [] PP control planned: [] discussed possible routes of delivery and associated risks: [] special requests: [] Specific Issue/Plans Covid status: [] Flu vaccine: [] Tdap vaccine: given (more content not included)... Normal [facility] Urine Cultureon 12-03-2024 URC Below infection level. Mixed Gram Positive Organisms [place] Count 1000-10,000 MIXC Mixed contaminants. Submit a new specimen if indicated. Normal [facility] Comment on above: Performed By: #### M 100.2200 #### [facility] [address] [facility] [place], [place], [id number] AST(SGOT)on 12-01-2024 AST [Catalytic activity/Vol] 25 U/L Normal <=31 [facility] Comment on above: Result Comment: Hemo lysis present, Results??could be affected. ?? Performed By: #### L 501.0900, L501.4405, L501.1400, L501.4100, L501.1105, L100.0500 #### [facility] [address] [place], [address] Alanine Aminotransferas (SGP T)on 12-01-2024 ALT [Catalytic activity/Vol] 18 U/L Normal <=34 [facility] Comment on above: Performed By: #### L 501.0900, L501.4405, L501.1400, L501.4100, L501.1105, L100.0500 #### [facility] [address] [place], [address] Bilirubin Test strip Ql (U)O rdered By: Lizet Flynn on 12-01-2024 Bilirubin Ql (U) Negative Negative [facility] CBC-Complete Blood Cnt No Di ffon 12-01-2024 Erythrocyte distribution width (RBC) [Ratio] 13.0 % Normal 11.6-14.6 [facility] Comment on above: Performed By: #### L 501.0900, L501.4405, L501.1400, L501.4100, L501.1105, L100.0500 #### [facility] [address] [place], [address] Hematocrit (Bld) [Volume fraction] 34.3 % Low 37-47 [facility] Comment on above: Performed By: #### L 501.0900, L501.4405, L501.1400, L501.4100, L501.1105, L100.0500 #### [facility] [address] [place], [address] Hemoglobin (Bld) [Mass/Vol] 11.9 g/dL Low 12.0-15.0 [facility] Comment on above: Performed By: #### L 501.0900, L501.4405, L501.1400, L501.4100, L501.1105, L100.0500 #### [facility] [address] [place], [address] MCH (RBC) [Entitic mass] 30.8 pg Normal 27.0-32.0 [facility] Comment on above: Performed By: #### L 501.0900, L501.4405, L501.1400, L501.4100, L501.1105, L100.0500 #### [facility] [address] [place], [address] MCHC (RBC) [Mass/Vol] 34.7 g/dL Normal 32-36 [facility] Comment on above: Performed By: #### L 501.0900, L501.4405, L501.1400, L501.4100, L501.1105, L100.0500 #### [facility] [address] [place], [address] MCV (RBC) [Entitic vol] 88.9 fL Normal 81-99 [facility] Comment on above: Performed By: #### L 501.0900, L501.4405, L501.1400, L501.4100, L501.1105, L100.0500 #### [facility] [address] [place], [address] Platelet mean volume (Bld) [Entitic vol] 10.1 fL Normal 6.2-12.0 [facility] Comment on above: Performed By: #### L 501.0900, L501.4405, L501.1400, L501.4100, L501.1105, L100.0500 #### [facility] [address] [place], [address] Platelets (Bld) [#/Vol] 297 10*3/uL Normal 150-450 [facility] Comment on above: Performed By: #### L 501.0900, L501.4405, L501.1400, L501.4100, L501.1105, L100.0500 #### [facility] [address] [place], [address] RBC (Bld) [#/Vol] 3.86 10*6/uL Low 4.2-5.4 [facility] Comment on above: Performed By: #### L 501.0900, L501.4405, L501.1400, L501.4100, L501.1105, L100.0500 #### [facility] [address] [place], [address] RDW SD 42.5 fl Normal 35.1-43.9 [facility] Comment on above: Performed By: #### L 501.0900, L501.4405, L501.1400, L501.4100, L501.1105, L100.0500 #### [facility] [address] [place], [address] WBC (Bld) [#/Vol] 13.8 10*3/uL High 4.4-11.0 [facility] Comment on above: Performed By: #### L 501.0900, L501.4405, L501.1400, L501.4100, L501.1105, L100.0500 #### [facility] [address] [place], [address] Creatinine Unsp time (U) [Ma ss/Vol]Ordered By: Lizet Flynn on 12-01-2024 Creatinine (U) [Mass/Vol] 228.00 mg/dL High 28.00-21 7.00 [facility] Epithelial cells.squamous LM Ql (Urine sed)Ordered By: Lizet Flynn on 12-01-2024 Epithelial cells.squamous LM.HPF (Urine sed) [#/Area] 5 /[HPF] 5-10 [facility] Erythrocyte distribution wid th (RBC) [Ratio]Ordered By: Lizet Flynn on 12-01-2024 Erythrocyte distribution width (RBC) [Entitic vol] 42.5 fL 35.1-43.9 [facility] Erythrocyte distribution wid th ratioOrdered By: Lizet Flynn on 12-01-2024 Erythrocyte distribution width (RBC) [Ratio] 13.0 % 11.6-14.6 [facility] Erythrocyte distribution wid th standard deviationOrdered By: Lizetsamantha Flynn on 12-01-2024 Erythrocyte distribution width (RBC) [Ratio] 42.5 fl 35.1-43.9 [facility] Estimation of creatinine sabino aranceOrdered By: Lizet Flynn on 12-01-2024 Estimated Creatinine Clearance Calc 157.12 ml/min 50-250 [facility] GFR/1.73 sq M.predicted shelbie g non-blacks MDRD (S/P/Bld) [Vol rate/Area]Ordered By: Lizet Flynn on 12-01-2024 Estimated GFR (MDRD) Non-Af Amer 134 >60 [facility] Comment on above: mL/min/1.73m2 CKD-EP I Creatinine Equation (2020) Glomerular filtration rate ( GFR) estimation/1.73 sq m using serum, plasma, or whole bOrdered By: Lizet Flynn on 12-01-2024 GFR/1.73 sq M.predicted among non-blacks MDRD (S/P/Bld) [Vol rate/Area] 134 mL/min/{1.73_m2} >60 [facility] Comment on above: mL/min/1.73m2 CKD-EP I Creatinine Equation (2020) Glucose Ql (U)Ordered By: Bubba Flynn on 12-01-2024 Urine Glucose (UA) Normal mg/dl Normal [facility] Hematocrit Auto (Bld) [Volum e fraction]Ordered By: Lizet Flynn on 12-01-2024 Hematocrit (Bld) [Volume fraction] 34.3 % Low 37-47 [facility] Hemoglobin measurementOrdere d By: Lizet Flynn on 12-01-2024 Hemoglobin (Bld) [Mass/Vol] 11.9 g/dL Low 12.0-15.0 [facility] Ketones Test strip Ql (U)Ord ered By: Lizet Fylnn on 12-01-2024 Ketones Ql (U) Negative Negative [facility] Laboratory - Chemistry and C hemistry - challengeOrdered By: Lizet Flynn on 12-01-2024 AST [Catalytic activity/Vol] 25 U/L <32 [facility] Comment on above: Hemolysis present, R esults could be affected. MCV (mean corpuscular volume ) determinationOrdered By: Lizet Flynn on 12-01-2024 MCV (RBC) [Entitic vol] 88.9 fL 81-99 [facility] Mean corpuscular hemoglobin (MCH) determinationOrdered By: Lizet Flynn on 12-01-2024 MCH (RBC) [Entitic mass] 30.8 pg 27.0-32.0 [facility] Mean corpuscular hemoglobin concentration (MCHC) determinationOrdered By: Lizet Flynn on 12-01-2024 MCHC (RBC) [Mass/Vol] 34.7 g/dL 32-36 [facility] Mean platelet volume determi nationOrdered By: Lizet Flynn on 12-01-2024 Platelet mean volume (Bld) [Entitic vol] 10.1 fL 6.2-12.0 [facility] Microscopic analysis of urin e for red blood cells (RBC)Ordered By: Lizet Flynn on 12-01-2024 Microscopic analysis of urine for red blood cells (RBC) 0-5 SEEN /hpf 0-5 [facility] Urine RBC 0-5 SEEN /hpf 0-5 [facility] Mucus LM Ql (Urine sed)Order ed By: Lizet Flynn on 12-01-2024 Mucus Ql (Urine sed) 2+ /hpf [facility] Nitrite Test strip Ql (U)Ord ered By: Lizet Flynn on 12-01-2024 Nitrite Ql (U) Negative Negative [facility] OB Triage Physician Noteon 0 12-01-2024 OB Triage Physician Note [facility] Medical Records Department [address] [place] [address] OB Triage Physician Note 12/01/241950 MR#: [id number] Acct: [id number] Name: ERIKA PINEDA Rep #: [id number] : 2005 19 From: Lizet Sood DO PCP: Dr. Jorge Bearden MD Status:DEP [facility] Y Location: [facility] HPI - General General Date of Admission: 12/01/24 HPI Narrative ERIKA PINEDA, is a 19 y/o @ 28 weeks 3 days who presents to [facility] with nausea, vomiting, diarrhea, and epigastric/ruq pain. She denies having sick contacts. no bloody diarrhea, no headache, no visual changes. Maternal Data Information MCKENZIE Calculator Estimated Delivery Date Method Current WG Current Estimate 02/20/25 LMP (Certain) 28w 5d Other Estimates 02/24/25 Ultrasound #1 28w 1d PFSH PFS Medical History Irregular menstrual bleeding Seasonal allergies Hx of trauma Home Medications ???Medication ???Instructions ???Recorded ???Last Taken ???Type PNV 153-FA 400 mcg-om3 35 mg-dha 1 tab PO 07/03/24 Unknown History 25 mg-epa 5 mg-fish oil chew tablet ondansetron 4 mg disintegrating 4 mg PO Q6H PRN nausea and 5 Unknown Rx tablet vomiting #30 tabs Allergy/AdvReac Type Severity Reaction Status Date / Time No Known Allergies Allergy Verified 12/01/24 17:58 Surgical History H/O oral surgery Social History adopted: No household members: family current occupational status: employed current occupation: [employer] pets and animals: Yes (Avoid litterbox) pets and animals: cat(s) and dog(s) history of recent travel: No sexually active: Yes Smoking Status: Former smoker quit date: 06/02/24 Electronic Cigarette Use: with nicotine alcohol intake: never substance use type: does not use well-balanced diet: about half the time caffeine: No eating out: 1-3 times/week during the past year weight has: remained stable what type of physical activity do you participate in: none susana/christian: None seatbelt use: always do you feel safe at home: Yes additional social history: BF Richard- Ecco Seal History 1 Elective abortions Hx Para 0 Spontaneous abortions Hx # Term Pregnancies Ectopic pregnancies Hx # Pregnancies Multiple births # of living children Visit Details Expected Delivery Route/Plan abor Preferences- CB/BF classes: [] labor support person: [] labor intervention preferences: [] pain management options preferred: [] cut cord/dad catch: [] : [] PP control planned: [] discussed possible routes of delivery and associated risks: [] special requests: [] Plans Covid status: [] Flu vaccine: [] Tdap vaccine: [] Rhogam: [] LARC form signed: [] Problem list reviewed and updated with the most current plan of care details and appropriate orders placed. Relevant counseling for the gestational age provided. Continue routine care and follow up unless otherwise noted in visit notes/problem list details OB Flowsheet Initial Weight: Not Recorded Date -???-???-???-???-?? ?-???-???-???-???-? ??-???-???- EGA Weight BP Urine Prot -???-???-???-???-?? ?-???-???-???-???-? ??-???-???- Glucose FHR FuHt Pres Dilation -???-???-???-???-?? ?-???-???-???-???-? ??-???-???- Effaced St Visit Note 07/15/24 -???-???-???-???-?? ?-???-???-???-???-? ??-???-???- 8w 4d 162 lb 127/78 -???-???-???-???-?? ?-???-???-???-???-? ??-???-???- 181 -???-???-???-???-?? ?-???-???-???-???-? ??-???-???- KW- CRL cons with dates. Accepts NIPT 08/13/24 -???-???-???-???-?? ?-???-???-???-???-? ??-???-???- 12w 5d 162 lb 6 oz 122/71 Negative -???-???-???-???-?? ?-???-???-???-???-? ??-???-???- Negative 163 -???-???-???-???-?? ?-???-???-???-???-? ??-???-???- MH-No VB. N ausea persists/zofran sent. Br US confirm FHT. PN labs today 08/24/24 -???-???-???-???-?? ?-???-???-???-???-? ??-???-???- 14w 2d 163 lb 112/76 Negative -???-???-???-???-?? ?-???-???-???-???-? ??-???-???- Negative 150 -???-???-???-???-?? ?-???-???-???-???-? ??-???-???- SM- seen sec ondary to spotting over the weeknd seen in ER and viable IUP seen no abnormalities 09/11/24 -???-???-???-???-?? ?-???-???-???-???-? ??-???-???- 16w 6d Negative -???-???-???-???-?? ?-???-???-???-???-? ??-???-???- Negative 153 -???-???-???-???-?? ?-???-???-???-???-? ??-???-???- KW- no vb/cr amping. +flutters. anatomy US ordered. 10/08/24 -???-???-???-???-?? ?-???-???-???-???-? ??-???-???- 20w 5d 168 lb 6 oz 107/55 -???-???-???-???-?? ?-???-???-???-???-? ??-???-???- 145 20 -???-???-???-???-?? ?-???-???-???-???-? ??-???-???- KW- no vb/cr amping. good fm. anatomy scan reviewed 11/09/24 -???-? (more content not included)... Normal [facility] Platelet countOrdered By: Bubba Flynn on 12-01-2024 Platelets (Bld) [#/Vol] 297 10*3/uL 150-450 [facility] Protein Test strip Ql (U)Ord ered By: Lizet Flynn on 12-01-2024 Protein Ql (U) 30 mg/dl High Negative [facility] Protein+Creatinine Ratio,Uri neon 12-01-2024 PROT:CRE RATIO 141 mg/g CRE Normal 0-200 [facility] Comment on above: Performed By: #### L 501.0900, L501.4405, L501.1400, L501.4100, L501.1105, L100.0500 #### [facility] [address] [place], [address] Protein (U) [Mass/Vol] 32.1 mg/dL High 0.0-12.0 [facility] Comment on above: Performed By: #### L 501.0900, L501.4405, L501.1400, L501.4100, L501.1105, L100.0500 #### [facility] [address] [place], [address] UR CREAT 228.00 mg/dL High 28.00-217.00 [facility] Comment on above: Performed By: #### L 501.0900, L501.4405, L501.1400, L501.4100, L501.1105, L100.0500 #### [facility] [address] [place], [address] Protein/Creatinine (U) [Mass ratio]Ordered By: Lizet Flynn on 12-01-2024 Urine Protein/Creatinine Ratio 141 mg/g CRE 0-200 [facility] RBC Auto (Bld) [#/Vol]Ordere d By: Lizet Flynn on 12-01-2024 RBC (Bld) [#/Vol] 3.86 10*6/uL Low 4.2-5.4 [facility] Random urine creatinine james urement (mass/volume)Ordered By: Lizet Flynn on 12-01-2024 Creatinine Unsp time (U) [Mass/Vol] 228.00 mg/dL High 28.00-217.00 [facility] Serum Creatinine AND GFRon 0 12-01-2024 Creatinine [Mass/Vol] 0.54 mg/dL Low 0.70-1.20 [facility] Comment on above: Performed By: #### L 501.0900, L501.4405, L501.1400, L501.4100, L501.1105, L100.0500 #### [facility] [address] [place], [place], [id number] (659) ECRCL 157.12 ml/min Normal 50-250 [facility] Comment on above: Performed By: #### L 501.0900, L501.4405, L501.1400, L501.4100, L501.1105, L100.0500 #### [facility] [address] [place], [place], [id number] GFR/1.73 sq M.predicted among non-blacks MDRD (S/P/Bld) [Vol rate/Area] 134 mL/min/{1.73_m2} Normal >60 [facility] Comment on above: Result Comment: mL/m in/1.73m2 CKD-EPI Creatinine Equation (2020) Performed By: #### L 501.0900, L501.4405, L501.1400, L501.4100, L501.1105, L100.0500 #### [facility] [address] [place], [place], [id number] Serum creatinine measurement (mass/volume)Ordered By: Lizet Flynn on 12-01-2024 Creatinine [Mass/Vol] 0.54 mg/dL Low 0.70-1.20 [facility] Serum or plasma alanine lentz otransferase (ALT) measurementOrdered By: Lizet Flynn on 12-01-2024 ALT [Catalytic activity/Vol] 18 U/L <35 [facility] Serum or plasma uric acid me asurement (mass/volume)Ordered By: Lizet Flynn on 12-01-2024 Urate [Mass/Vol] 3.7 mg/dL 2.6-6.0 [facility] Comment on above: The drugs N-Acetylcy steine and Metamizole may falsely depress this assay. Squamous epithelial cells de tection in urine sediment by light microscopyOrdered By: Lizet Flynn on 12-01-2024 Epithelial cells.squamous LM Ql (Urine sed) 5-10 SEEN /hpf 5-10 [facility] Uric Acidon 12-01-2024 URIC 3.7 mg/dL Normal 2.6-6.0 [facility] Comment on above: Result Comment: The drugs N-Acetylcysteine and Metamizole may falsely depress this assay. Performed By: #### L 501.0900, L501.4405, L501.1400, L501.4100, L501.1105, L100.0500 #### [facility] [address] [place], [address] Urinalysis, Completeon 12-01 RBC 0-5 SEEN Normal 0-5 [facility] Comment on above: Order Comment: RONY CTOR TO SPECIFY Performed By: #### M 100.2200 #### [facility] [address] [place], [address] WBC 0-5 SEEN Normal 0-5 [facility] Comment on above: Order Comment: RONY CTOR TO SPECIFY Performed By: #### M 100.2200 #### [facility] [address] [place], [address] EPI,SQUAMOUS 5-10 SEEN Normal 5-10 [facility] Comment on above: Order Comment: RONY CTOR TO SPECIFY Performed By: #### M 100.2200 #### [facility] [address] [place], [address] BACTERIA 1+ /hpf Normal None Seen [facility] Comment on above: Order Comment: RONY CTOR TO SPECIFY Performed By: #### M 100.2200 #### [facility] [address] [place], [address] Mucus Ql (Urine sed) 2+ /hpf Normal [facility] Comment on above: Order Comment: RONY CTOR TO SPECIFY Performed By: #### M 100.2200 #### [facility] [address] [place], [address] Urine blood detectionOrdered By: Lizet Flynn on 12-01-2024 Urine Occult Blood Negative Negative [facility] Urine clarityOrdered By: Amy Flynn on 12-01-2024 Clarity (U) Sl. Cloudy Clear [facility] Urine color determinationOrd ered By: Lizet Flynn on 12-01-2024 Color (U) Yellow Yellow [facility] Urine cultureOrdered By: Amy Flynn on 12-01-2024 Bacteria identified Cx Nom (U) Positive Abnormal [facility] Urine glucose detectionOrder ed By: Lizet Flynn on 12-01-2024 Glucose Ql (U) Normal mg/dl Normal [facility] Urine leukocyte esterase det ection by dipstickOrdered By: Lizet Flynn on 12-01-2024 Leukocyte esterase Test strip Ql (U) Negative Negative [facility] Urine pHOrdered By: Lizet Flynn on 12-01-2024 pH (U) 6.0 [pH] 5.0 - 8.0 [facility] Urine protein measurement (m ass/volume)Ordered By: Lizet Flynn on 12-01-2024 Protein (U) [Mass/Vol] 32.1 mg/dL High 0.0-12.0 [facility] Urine protein/creatinine mas s ratioOrdered By: Lizet Flynn on 12-01-2024 Protein/Creatinine (U) [Mass ratio] 141 mg/g CRE 0-200 [facility] Urine sediment bacteria coun t by microscopy (number/high power field)Ordered By: Lizet Flynn on 12-01-2024 Bacteria LM.HPF (Urine sed) [#/Area] 1 /[HPF] None Seen [facility] Urine specific gravity measu rementOrdered By: Lizet Flynn on 12-01-2024 Specific gravity (U) [Rel density] 1.020 1.002-1.030 [facility] Urine urobilinogen measureme ntOrdered By: Lizet Flynn on 12-01-2024 Urobilinogen Ql (U) Normal mg/dl Normal [facility] Urobilinogen Ql (U)Ordered B y: Lizet Flynn on 12-01-2024 Urine Urobilinogen Normal mg/dl Normal [facility] White blood cell (WBC) count Ordered By: Lizet Flynn on 12-01-2024 WBC (Bld) [#/Vol] 13.8 10*3/uL High 4.4-11.0 [facility] White blood cell countOrdere d By: Lizet Flynn on 12-01-2024 Urine WBC 0-5 SEEN /hpf 0-5 [facility] White blood cell count 0-5 SEEN /hpf 0-5 [facility] Absolute lymphocyte countOrd ered By: Lizet Flynn on 11-30-2024 Lymphocytes Auto (Unsp spec) [#/Vol] 2.25 10*3/uL 0.83-4.51 [facility] Absolute neutrophil countOrd ered By: Lizet Flynn on 11-30-2024 Neutrophils (Bld) [#/Vol] 8.4 10*3/uL High 2.0-7.7 [facility] Automated lymphocyte count a s percentage of total leukocytesOrdered By: Lizet Flynn on 11-30-2024 Lymphocytes/100 WBC Auto (Unsp spec) 19.8 % 19-41 [facility] Basophil percentageOrdered B y: Lizet Flynn on 11-30-2024 Basophils/100 WBC (Bld) 0.3 % 0-1 [facility] CBC W/Diff, Automatedon 11-17 Absolute Lymph 2.25 X10 3/uL Normal 0.83-4.51 [facility] Comment on above: Performed By: #### 8200.2203 #### [facility] [address] [place], [address] Absolute Neut 8.4 X10 3/uL High 2.0-7.7 [facility] Comment on above: Performed By: #### 8200.220 #### [facility] [address] [place], [address] Basophils/100 WBC (Bld) 0.3 % Normal 0-1 [facility] Comment on above: Performed By: #### 8200.2203 #### [facility] [address] [place], [address] Eosinophils/100 WBC (Bld) 0.6 % Normal 0-5 [facility] Comment on above: Performed By: #### 8200.2202 #### [facility] [address] [place], [address] Erythrocyte distribution width (RBC) [Ratio] 13.1 % Normal 11.6-14.6 [facility] Comment on above: Performed By: #### 8200.2203 #### [facility] [address] [place], [address] Hematocrit (Bld) [Volume fraction] 35.6 % Low 37-47 [facility] Comment on above: Performed By: #### 8200.2203 #### [facility] [address] [place], [address] Hemoglobin (Bld) [Mass/Vol] 11.8 g/dL Low 12.0-15.0 [facility] Comment on above: Performed By: #### 8200.2203 #### [facility] [address] [place], [address] IG% 0.700 Normal 0.0-0.9 [facility] Comment on above: Result Comment: IG% - Immature Granulocytes (promyelocytes, myelocytes and metamyelocytes) > 1% indicates that a LEFT SHIFT is Present. Performed By: #### M 8200.2203 #### [facility] [address] [place], [address] Lymphocytes/100 WBC (Bld) 19.8 % Normal 19-41 [facility] Comment on above: Performed By: #### M 8200.220 #### [facility] [address] [place], [address] MCH (RBC) [Entitic mass] 30.3 pg Normal 27.0-32.0 [facility] Comment on above: Performed By: #### M 8200.2202 #### [facility] [address] [place], [address] MCHC (RBC) [Mass/Vol] 33.1 g/dL Normal 32-36 [facility] Comment on above: Performed By: #### M 8200.2203 #### [facility] [address] [place], [address] MCV (RBC) [Entitic vol] 91.3 fL Normal 81-99 [facility] Comment on above: Performed By: #### M 8200.2203 #### [facility] [address] [place], [address] Monocytes/100 WBC (Bld) 4.6 % Normal 0-10 [facility] Comment on above: Performed By: #### M 8200.2203 #### [facility] [address] [place], [address] Neutrophils/100 WBC (Bld) 74.0 % High 47-70 [facility] Comment on above: Performed By: #### M 8200.2203 #### [facility] [address] [place], [address] Nucleated RBC (Bld) [#/Vol] 0 10*3/uL Normal 0-5 [facility] Comment on above: Performed By: #### 8200.2203 #### [facility] [address] [place], [address] Platelet mean volume (Bld) [Entitic vol] 10.4 fL Normal 6.2-12.0 [facility] Comment on above: Performed By: #### M 8200.2203 #### [facility] [address] [place], [address] Platelets (Bld) [#/Vol] 316 10*3/uL Normal 150-450 [facility] Comment on above: Performed By: #### Faiza 8200.220 #### [facility] [address] [place], [address] RBC (Bld) [#/Vol] 3.90 10*6/uL Low 4.2-5.4 [facility] Comment on above: Performed By: #### 8200.2203 #### [facility] [address] [place], [address] RDW SD 43.1 fl Normal 35.1-43.9 [facility] Comment on above: Performed By: #### 8200.2203 #### [facility] [address] [place], [address] WBC (Bld) [#/Vol] 11.3 10*3/uL High 4.4-11.0 [facility] Comment on above: Performed By: #### 8200.2203 #### [facility] [address] [place], [address] Eosinophil percentageOrdered By: Lizet Flynn on 11-30-2024 Eosinophils/100 WBC (Bld) 0.6 % 0-5 [facility] Erythrocyte distribution wid th (RBC) [Ratio]Ordered By: Lizet Flynn on 11-30-2024 Erythrocyte distribution width (RBC) [Entitic vol] 43.1 fL 35.1-43.9 [facility] Erythrocyte distribution wid th ratioOrdered By: Lizet Flynn on 11-30-2024 Erythrocyte distribution width (RBC) [Ratio] 13.1 % 11.6-14.6 [facility] Erythrocyte distribution wid th standard deviationOrdered By: Lizet Flynn on 11-30-2024 Erythrocyte distribution width (RBC) [Ratio] 43.1 fl 35.1-43.9 [facility] Glucose Challenge Gest 1H 50 jessica 11-30-2024 GLU GEST 50g 1H 119 mg/dL Normal 70-140 [facility] Comment on above: Performed By: #### Faiza 8200.2203 #### [facility] [address] [facility] [place], [address] Glucose measurement at 2 breanne rs post-dose gestational glucose tolerance testOrdered By: Lizet Flynn on 11-30-2024 Glucose [Mass/Vol] 119 mg/dL 70-140 [facility] HIVon 11-30-2024 HIV Non-Reactive Normal Nonreactive [facility] Comment on above: Result Comment: Non- Reactive Reactive Repeatedly reactive samples must be confirmed according to CDC recommended confirmatory algorithms. The subresults for either HIVAG or AHIV can be used as an aid in the selection of the confirmation algorithm for reactive samples. Send out specimens with Reactive results to [facility] for confirmation. Order the HIV antibody detection and differentiation: #[id number] Performed By: #### Faiza 8200.2203 #### [facility] [address] [place], [address] Hematocrit Auto (Bld) [Volum e fraction]Ordered By: Lizet Flynn on 11-30-2024 Hematocrit (Bld) [Volume fraction] 35.6 % Low 37-47 [facility] Hemoglobin measurementOrdere d By: Lizet Flynn on 11-30-2024 Hemoglobin (Bld) [Mass/Vol] 11.8 g/dL Low 12.0-15.0 [facility] Immature granulocytes/100 WB C Auto (Bld)Ordered By: Lizet Flynn on 11-30-2024 Immature granulocytes/100 WBC (Bld) 0.700 % 0.0-0.9 [facility] Comment on above: IG% - Immature Granu locytes (promyelocytes, myelocytes and metamyelocytes) > 1% indicates that a LEFT SHIFT is Present. Laboratory - Chemistry and C hemistry - challengeOrdered By: Bernarda Weber on 11-30-2024 Glucose Ql (U) Negative [facility] - UrinalysisOrder ed By: Bernarda Weber on 11-30-2024 Protein Ql (U) Negative [facility] Lymphocytes Auto (Unsp spec) [#/Vol]Ordered By: Lizet Flynn on 11-30-2024 Lymphocytes (Bld) [#/Vol] 2.25 10*3/uL 0.83-4.5 1 [facility] Lymphocytes/100 WBC Auto (Un sp spec)Ordered By: Lizet Flynn on 11-30-2024 Lymphocytes/100 WBC (Bld) 19.8 % 19-41 [facility] MCV (mean corpuscular volume ) determinationOrdered By: Lizet Flynn on 11-30-2024 MCV (RBC) [Entitic vol] 91.3 fL 81-99 [facility] Mean corpuscular hemoglobin (MCH) determinationOrdered By: Lizet Flynn on 11-30-2024 MCH (RBC) [Entitic mass] 30.3 pg 27.0-32.0 [facility] Mean corpuscular hemoglobin concentration (MCHC) determinationOrdered By: Lizet Flynn on 11-30-2024 MCHC (RBC) [Mass/Vol] 33.1 g/dL 32-36 [facility] Mean platelet volume determi nationOrdered By: Lizet Flynn on 11-30-2024 Platelet mean volume (Bld) [Entitic vol] 10.4 fL 6.2-12.0 [facility] Monocyte percentageOrdered B y: Lizet Flynn on 11-30-2024 Monocytes/100 WBC (Bld) 4.6 % 0-10 [facility] Neutrophil percentageOrdered By: Lziet Flynn on 11-30-2024 Neutrophils/100 WBC (Bld) 74.0 % High 47-70 [facility] No Panel InformationOrdered By: Lizet Flynn on 11-30-2024 HIV (1&2) Antibody Non-Reactive Nonreactive [facility] Comment on above: Non-ReactiveReactive Repeatedly reactive samples must be confirmed according to CDC recommended confirmatory algorithms. The subresults for either HIVAG or AHIV can be used as an aid in the selection of the confirmation algorithm for reactive samples.Send out specimens with Reactive results to [facility] for confirmation.Order the HIV antibody detection and differentiation: #[id number] Nucleated red blood cell per centageOrdered By: Lizet Flynn on 11-30-2024 Nucleated RBC/100 WBC (Bld) [Ratio] 0 % 0-5 [facility] Office Visit Reporton 11-30-2024 [facility] Office Visit Report [facility] [address], [address] [place] [address] OFFICE VISIT Date of Service: 11/30/24 MR#: [id number] Acct: [id number] Name: ERIKA PINEDA Rep #: [id number] : 2005 Provider: MANINDER Norris ams Age/Sex: 19/F [place] [facility] [place] Status: Signed Intake Vital Signs 08/13/24 08:33 11/19/24 11:09 11/30/24 10:17 Height 5 ft 1 in 5 ft 1 in 5 ft 1 in Weight: 173 lb BMI 32.6 BP 101/68 Intake Visit Reasons: 28 wk ob/glucose Chief Complaint: 28wk OB Cath Lab Required: No Is patient in pain?: No Allergies No Known Allergies Allergy (Verified 11/30/24 10:18) Medications ???Medication ???Instructions ???Recorded ???Confirmed ???Type PNV 153-FA 400 mcg-om3 35 mg-dha tab PO 07/03/24 11/30/24 History 25 mg-epa 5 mg-fish oil chew tablet Last Menstrual Period: 05/16/24 : No PFSH PFSH Medical History Irregular menstrual bleeding Seasonal allergies Hx of trauma Surgical History H/O oral surgery Social History adopted: No household members: family current occupational status: employed current occupation: [employer] pets and animals: Yes (Avoid litterbox) pets and animals: cat(s) and dog(s) history of recent travel: No sexually active: Yes Smoking Status: Former smoker quit date: 06/02/24 Electronic Cigarette Use: with nicotine alcohol intake: never substance use type: does not use well-balanced diet: about half the time caffeine: No eating out: 1-3 times/week during the past year weight has: remained stable what type of physical activity do you participate in: none susana/christian: None seatbelt use: always do you feel safe at home: Yes additional social history: BF Richard- [employer] History 1 Elective abortions Hx Para 0 Spontaneous abortions Hx # Term Pregnancies Ectopic pregnancies Hx # Pregnancies Multiple births # of living children HPI 28 wk ob/glucose Details: ERIKA PINEDA is a 19 year old who presents for routine OB visit. OB Visit MCKENZIE Calculator Estimated Delivery Date Method Current WG Current Estimate 02/20/25 LMP (Certain) 28w 2d Other Estimates 02/24/25 Ultrasound #1 27w 5d Expected Delivery Route/Plan abor Preferences- CB/BF classes: [] labor support person: [] labor intervention preferences: [] pain management options preferred: [] cut cord/dad catch: [] : [] PP control planned: [] discussed possible routes of delivery and associated risks: [] special requests: [] Specific Issue/Plans Covid status: [] Flu vaccine: [] Tdap vaccine: [] Rhogam: [] LARC form signed: [] Problem list reviewed and updated with the most current plan of care details and appropriate orders placed. Relevant counseling for the gestational age provided. Continue routine care and follow up unless otherwise noted in visit notes/problem list details Initial Weight: Not Recorded Date -???-???-???-???-?? ?-???-???-???-???-? ??-???-???- EGA Weight BP Urine Prot -???-???-???-???-?? ?-???-???-???-???-? ??-???-???- Glucose FHR FuHt Pres Dilation -???-???-???-???-?? ?-???-???-???-???-? ??-???-???- Effaced St Visit Note 07/15/24 -???-???-???-???-?? ?-???-???-???-???-? ??-???-???- 8w 4d 162 lb 127/78 -???-???-???-???-?? ?-???-???-???-???-? ??-???-???- 181 -???-???-???-???-?? ?-???-???-???-???-? ??-???-???- KW- CRL cons with dates. Accepts NIPT 08/13/24 -???-???-???-???-?? ?-???-???-???-???-? ??-???-???- 12w 5d 162 lb 6 oz 122/71 Negative -???-???-???-???-?? ?-???-???-???-???-? ??-???-???- Negative 163 -???-???-???-???-?? ?-???-???-???-???-? ??-???-???- MH-No VB. N ausea persists/zofran sent. Br US confirm FHT. PN labs today 08/24/24 -???-???-???-???-?? ?-???-???-???-???-? ??-???-???- 14w 2d 163 lb 112/76 Negative -???-???-???-???-?? ?-???-???-???-???-? ??-???-???- Negative 150 -???-???-???-???-?? ?-???-???-???-???-? ??-???-???- SM- seen sec ondary to spotting over the weeknd seen in ER and viable IUP seen no abnormalities 09/11/24 -???-???-???-???-?? ?-???-???-???-???-? ??-???-???- 16w 6d Negative -???-???-???-???-?? ?-???-???-???-???-? ??-???-???- Negative 153 -???-???-???-???-?? ?-???-???-???-???-? ??-???-???- KW- no vb/cr amping. +flutters. anatomy US ordered. 10/08/24 -???-???-???-???-?? ?-???-???-???-???-? ??-???-???- 20w 5d 168 lb 6 oz 107/55 -???-???-???-???-?? ?-???-???-???-???-? ??-???-???- 145 20 -???-???-???-???-?? ?-???-???-???-???-? ??-???-???- KW- no vb/cr amping. good fm. anatomy scan reviewed 11/09/24 -???-???-???-???-?? ?-???-???-??? (more content not included)... Normal [facility] Platelet countOrdered By: Bubba Flynn on 11-30-2024 Platelets (Bld) [#/Vol] 316 10*3/uL 150-450 [facility] RBC Auto (Bld) [#/Vol]Ordere d By: Lizet Flynn on 11-30-2024 RBC (Bld) [#/Vol] 3.90 10*6/uL Low 4.2-5.4 [facility] Syphilis Antibodieson 2024 Syphilis Abs Non-Reactive Normal Nonreactive [facility] Comment on above: Performed By: #### M [phone] #### [facility] [address] [facility] [place], [address] T. pallidum abOrdered By: Bubba Flynn on 11-30-2024 Syphilis Total Antibody Non-Reactive Nonreactiv e [facility] White blood cell (WBC) count Ordered By: Lizet Flynn on 11-30-2024 WBC (Bld) [#/Vol] 11.3 10*3/uL High 4.4-11.0 [facility] - Chemistry and C hemistry - challengeOrdered By: Bernarda Weber on 11-19-2024 Glucose Ql (U) Negative [facility] - UrinalysisOrder ed By: Bernarda Weber on 11-19-2024 Protein Ql (U) Negative [facility] Office Visit Reporton 11-19-2024 [facility] Office Visit Report [facility]'s [address], [address] [place] [address] OFFICE VISIT Date of Service: 11/19/24 MR#: [id number] Acct: [id number] Name: ERIKA PINEDA Rep #: [id number] : 2005 Provider: MANINDER Norris ams Age/Sex: 19/F [place] [facility] [place] Status: Signed Intake Vital Signs 11/09/24 11:22 04/03/25 11:08 11/19/24 11:09 Height 5 ft 1 in 5 ft 1 in 5 ft 1 in Weight: 174 lb BMI 32.8 BP 99/65 Intake Visit Reasons: decreased movement 26wk5d Chief Complaint: Decreased Movement Cath Lab Required: No Is patient in pain?: No Allergies No Known Allergies Allergy (Verified 11/19/24 11:14) Medications ???Medication ???Instructions ???Recorded ???Confirmed ???Type PNV 153-FA 400 mcg-om3 35 mg-dha tab PO 07/03/24 11/19/24 History 25 mg-epa 5 mg-fish oil chew tablet Last Menstrual Period: 05/16/24 : No PFSH PFSH Medical History Irregular menstrual bleeding Seasonal allergies Hx of trauma Surgical History H/O oral surgery Social History adopted: No household members: family current occupational status: employed current occupation: [employer] pets and animals: Yes (Avoid litterbox) pets and animals: cat(s) and dog(s) history of recent travel: No sexually active: Yes Smoking Status: Former smoker quit date: 06/02/24 Electronic Cigarette Use: with nicotine alcohol intake: never substance use type: does not use well-balanced diet: about half the time caffeine: No eating out: 1-3 times/week during the past year weight has: remained stable what type of physical activity do you participate in: none susana/christian: None seatbelt use: always do you feel safe at home: Yes additional social history: BF Richard- [employer] History 1 Elective abortions Hx Para 0 Spontaneous abortions Hx # Term Pregnancies Ectopic pregnancies Hx # Pregnancies Multiple births # of living children HPI decreased movement 26wk5d Details: ERIKA PINEDA is a 19 year old who presents for routine OB visit. OB Visit MCKENZIE Calculator Estimated Delivery Date Method Current WG Current Estimate 02/20/25 LMP (Certain) 26w 5d Other Estimates 02/24/25 Ultrasound #1 26w 1d Expected Delivery Route/Plan abor Preferences- CB/BF classes: [] labor support person: [] labor intervention preferences: [] pain management options preferred: [] cut cord/dad catch: [] : [] PP control planned: [] discussed possible routes of delivery and associated risks: [] special requests: [] Specific Issue/Plans Covid status: [] Flu vaccine: [] Tdap vaccine: [] Rhogam: [] LARC form signed: [] Problem list reviewed and updated with the most current plan of care details and appropriate orders placed. Relevant counseling for the gestational age provided. Continue routine care and follow up unless otherwise noted in visit notes/problem list details Initial Weight: Not Recorded Date -???-???-???-???-?? ?-???-???-???-???-? ??-???-???- EGA Weight BP Urine Prot -???-???-???-???-?? ?-???-???-???-???-? ??-???-???- Glucose FHR FuHt Pres Dilation -???-???-???-???-?? ?-???-???-???-???-? ??-???-???- Effaced St Visit Note 07/15/24 -???-???-???-???-?? ?-???-???-???-???-? ??-???-???- 8w 4d 162 lb 127/78 -???-???-???-???-?? ?-???-???-???-???-? ??-???-???- 181 -???-???-???-???-?? ?-???-???-???-???-? ??-???-???- KW- CRL cons with dates. Accepts NIPT 08/13/24 -???-???-???-???-?? ?-???-???-???-???-? ??-???-???- 12w 5d 162 lb 6 oz 122/71 Negative -???-???-???-???-?? ?-???-???-???-???-? ??-???-???- Negative 163 -???-???-???-???-?? ?-???-???-???-???-? ??-???-???- MH-No VB. N ausea persists/sharon sent. Br US confirm FHT. PN labs today 08/24/24 -???-???-???-???-?? ?-???-???-???-???-? ??-???-???- 14w 2d 163 lb 112/76 Negative -???-???-???-???-?? ?-???-???-???-???-? ??-???-???- Negative 150 -???-???-???-???-?? ?-???-???-???-???-? ??-???-???- SM- seen sec ondary to spotting over the weeknd seen in ER and viable IUP seen no abnormalities 09/11/24 -???-???-???-???-?? ?-???-???-???-???-? ??-???-???- 16w 6d Negative -???-???-???-???-?? ?-???-???-???-???-? ??-???-???- Negative 153 -???-???-???-???-?? ?-???-???-???-???-? ??-???-???- KW- no vb/cr amping. +flutters. anatomy US ordered. 10/08/24 -???-???-???-???-?? ?-???-???-???-???-? ??-???-???- 20w 5d 168 lb 6 oz 107/55 -???-???-???-???-?? ?-???-???-???-???-? ??-???-???- 145 20 -???-???-???-???-?? ?-???-???-???-???-? ??-???-???- KW- no vb/cr amping. good fm. anatomy scan reviewed (more content not included)... Normal [facility] - Chemistry and C hemistry - challengeOrdered By: Lizet Flynn on 11-09-2024 Glucose Ql (U) Negative [facility] - UrinalysisOrder ed By: Lizet Flynn on 11-09-2024 Protein Ql (U) Negative [facility] Office Visit Reporton 11-09-2024 [facility] Office Visit Report [facility]'s [address], [address] [place] [address] OFFICE VISIT Date of Service: 11/09/24 MR#: [id number] Acct: [id number] Name: ERIKA PINEDA Rep #: [id number] : 2005 Provider: Dr. Lizet Alvarez DO Age/Sex: 19/F [place] [facility] [place] Status: Signed Intake Vital Signs 08/13/24 08:33 10/08/24 09:34 11/09/24 11:20 11/09/24 11:22 Height 5 ft 1 in 5 ft 1 in 5 ft 1 in 5 ft 1 in Weight: 170 lb 8 oz BMI 32.2 BP 101/63 Intake Visit Reasons: 24 wk ob Cath Lab Required: No Is patient in pain?: No Allergies No Known Allergies Allergy (Verified 11/09/24 11:20) Medications ???Medication ???Instructions ???Recorded ???Confirmed ???Type PNV 153-FA 400 mcg-om3 35 mg-dha tab PO 07/03/24 11/09/24 History 25 mg-epa 5 mg-fish oil chew tablet ferrous sulfate 137 mg (45 mg 137 mg PO QDAY 07/03/24 11/09/24 H istory iron) tablet,extended release (Slow Fe) sertraline 50 mg tablet (Zoloft) 50 mg PO QDAY #30 tabs 07/20/24 Rx Last Menstrual Period: 05/16/24 Zika: Zika virus screening: Negative : No PFSH PFSH Medical History Irregular menstrual bleeding Seasonal allergies Hx of trauma Surgical History H/O oral surgery Social History adopted: No household members: family current occupational status: employed current occupation: [employer] pets and animals: Yes (Avoid litterbox) pets and animals: cat(s) and dog(s) history of recent travel: No sexually active: Yes Smoking Status: Former smoker quit date: 06/02/24 Electronic Cigarette Use: with nicotine alcohol intake: never substance use type: does not use well-balanced diet: about half the time caffeine: No eating out: 1-3 times/week during the past year weight has: remained stable what type of physical activity do you participate in: none susana/christian: None seatbelt use: always do you feel safe at home: Yes additional social history: BF Richard- [employer] History 1 Elective abortions Hx Para 0 Spontaneous abortions Hx # Term Pregnancies Ectopic pregnancies Hx # Pregnancies Multiple births # of living children HPI 24 wk ob Details: ERIKA PINEDA is a 19 year old who presents for routine OB visit. OB Visit MCKENZIE Calculator Estimated Delivery Date Method Current WG Current Estimate 02/20/25 LMP (Certain) 25w 2d Other Estimates 02/24/25 Ultrasound #1 24w 5d Expected Delivery Route/Plan abor Preferences- CB/BF classes: [] labor support person: [] labor intervention preferences: [] pain management options preferred: [] cut cord/dad catch: [] : [] PP control planned: [] discussed possible routes of delivery and associated risks: [] special requests: [] Specific Issue/Plans Covid status: [] Flu vaccine: [] Tdap vaccine: [] Rhogam: [] LARC form signed: [] Problem list reviewed and updated with the most current plan of care details and appropriate orders placed. Relevant counseling for the gestational age provided. Continue routine care and follow up unless otherwise noted in visit notes/problem list details Initial Weight: Not Recorded Date -???-???-???-???-?? ?-???-???-???-???-? ??-???-???- EGA Weight BP Urine Prot -???-???-???-???-?? ?-???-???-???-???-? ??-???-???- Glucose FHR FuHt Pres Dilation -???-???-???-???-?? ?-???-???-???-???-? ??-???-???- Effaced St Visit Note 07/15/24 -???-???-???-???-?? ?-???-???-???-???-? ??-???-???- 8w 4d 162 lb 127/78 -???-???-???-???-?? ?-???-???-???-???-? ??-???-???- 181 -???-???-???-???-?? ?-???-???-???-???-? ??-???-???- KW- CRL cons with dates. Accepts NIPT 08/13/24 -???-???-???-???-?? ?-???-???-???-???-? ??-???-???- 12w 5d 162 lb 6 oz 122/71 Negative -???-???-???-???-?? ?-???-???-???-???-? ??-???-???- Negative 163 -???-???-???-???-?? ?-???-???-???-???-? ??-???-???- MH-No VB. N ausea persists/sharon sent. Br US confirm FHT. PN labs today 08/24/24 -???-???-???-???-?? ?-???-???-???-???-? ??-???-???- 14w 2d 163 lb 112/76 Negative -???-???-???-???-?? ?-???-???-???-???-? ??-???-???- Negative 150 -???-???-???-???-?? ?-???-???-???-???-? ??-???-???- SM- seen sec ondary to spotting over the weeknd seen in ER and viable IUP seen no abnormalities 09/11/24 -???-???-???-???-?? ?-???-???-???-???-? ??-???-???- 16w 6d Negative -???-???-???-???-?? ?-???-???-???-???-? ??-???-???- Negative 153 -???-???-???-???-?? ?-???-???-???-???-? ??-???-???- KW- no vb/cr amping. +flutters. anatomy US ordered. 10/08/24 -???-???-???-???-?? ?-???-???-?? (more content not included)... Normal [facility] ED MED ADMINISTRATION DETAIL on 10-18-2024 ED MED ADMINISTRATION DETAIL [employer] Medication Administration Record [id number] [place] [address] [id number] 10/12/2024 Patient: ERIKA PINEDA Sex: Female : 2005 Age: 19y MEASUREMENTS: Wt: 76.7 kg, Ht/Bennett: 61.0 in, BMI: 31.93 ALLERGIES: No known drug allergies Medication Ordered Medication Administration Date/Time IV NS 0.9 % 1000 06:10/12 IV NS 0.9 % 1000 mL started in bag#1 1000 mL at Started mL at 999 mL/hr 999 mL/hr via Site# 1. Allergies verified and confirmed 5 rights. Via 06:10/12/2024 (NOW x1) dial-a-flow. IV patency established. IV site checked: no pain, Dylan Hill R.N. redness, or swelling. IV flushed thoroughly pre-medication Stopped administration. Information reviewed with patient including reason 07:30 10/12/2024 for taking this medication. Verbalizes understanding. - 06:23 Citlalli Lee R.N. Scanned 07:30 10/12 Medication Discontinued: bag #1 infused. Total amount infused: 1000 mL. IV patency established. IV site checked: no pain, redness, or swelling. IV flushed thoroughly post-medication administration. - 08:47 Dajuan Ceron R.N. Reglan IVP 10 mg 06:10/12 Reglan IVP 10 mg given via Site# 1. Allergies verified Given (NOW x1) and confirmed 5 rights. IV patency established. IV site checked: no 06:10/12/2024 pain, redness, or swelling. IV flushed thoroughly pre-medication Dylan Hill R.N. administration. IVP given by nurse. Information reviewed with Scanned patient including reason for taking this medication. Verbalizes understanding. - 06:27 Dylan Hill R.N. 1 of 2 [employer] Medication Ordered Medication Administration Date/Time Acetaminophen 06:10/12 Acetaminophen (Tylenol) PO 975 mg given. Allergies Given (Tylenol) PO 975 verified and confirmed 5 rights. Information reviewed with patient 06:27 10/12/2024 mg (NOW x1) including sedative warning. Verbalizes understanding. (11/26 Dylan Hill R.N. generalized pain). - 06:30 Dylan Hill R.N. Scanned 2 of 2 Normal [facility] ED NURSES CLINICAL NOTEon ED NURSES CLINICAL NOTE Nurse Narrative Nurse Clinical Narrative [address] [place] [address] [phone] 10/12/2024 Patient: ERIKA PINEDA Sex: Female : 2005 Age: 19y Primary Insurance: [employer] OUTPATIENT Policy Number: [id number] Group Number: [id number] Subscriber: Other Secondary Insurance: [employer] [facility] OUTPATIENT Policy Number: [id number] Group Number: [id number] Subscriber: Other Disposition: Discharge to Home Disposition Decision Time: 08:39 10/12/2024 Departure Time: 08:45 10/12/2024 TRIAGE Arrived by private vehicle. Historian: (patient). ( Pt states she just tested positive for flu. She c/o N/V.). Triage time: 05:57 10/12/2024. Acuity: LEVEL 3. Chief Complaint: FLU. This started yesterday. SEPSIS SCREEN: NEGATIVE. SIRS criteria negative: heart rate greater than 90. No possible sources of infection. -- 06:10/12/24 MERVAT Vázquez R.N. 06:10/12/24. BP: 100/55 MAP: 70. HR: 111. RR: 18. O2 saturation: 95% Temperature: 100.3 F (oral). Pain level now 7/10. -- 06:10/12/24 MERVAT Vázquez R.N. Measurements: 06:10/12/24 Wt: 76.7 kg, Ht/Bennett: 61.0 in, BMI: 31.93 -- 06:01 10/12/24 MERVAT Vázquez R.N. Medications: 1 of 4 Nurse Narrative Gummies (DHA-EPA) oral -- 06:33 10/12/24 MERVAT Hill R.N. Allergies: no known drug allergies -- 05:59 10/12/24 MERVAT Vázquez R.N. Problems: no known problem -- 05:59 10/12/24 MERVAT Vázquez R.N. ADDITIONAL SURGERIES: Dental Surgery -- 06:00 10/12/24 MERVAT Vázquez R.N. History 05:57 10/12/24. PAST MEDICAL HX: status: currently : 21 weeks. SOCIAL HX: Never smoker. No alcohol use or drug use. The patient has not traveled outside the [place] Infectious disease exposure: No infectious disease exposure. ABUSE ASSESSMENT: The patient answered yes to the question(s) Do you feel safe in your home? and no to the question(s) Are you afraid to go home?. SELF HARM ASSESSMENT: Self harm assessment was performed. The patient answered no to the question(s) Have you recently felt down, depressed, or hopeless? and Do you have thoughts of harming or killing yourself?. FALL RISK ASSESSMENT: Fall risk assessment completed. No risk factors identified. -- 06:02 10/12/24 MERVAT Vázquez R.N. PHYSICAL ASSESSMENT 06:30 10/12/24. ( Pt states she went to urgent care yesterday and was notified this morning that she tested positive for Flu A Pt was given Tamiflu from urgent care. She took one dose and felt sick. Pt also states she developed a rash on her face after the Tamiflu. notified.). -- 07:39 10/12/24 MERVAT Zimmerman R.N. 06:37 10/12/24. Ambulatory to room. Patient gowned. GENERAL / NEURO / PSYCH: The patient has constant, generalized weakness (weakness and generalized 2 of 4 Nurse Narrative body aches since Saturday). HEENT: Pharyngeal erythema. Runny nose. No sinus tenderness present. RESPIRATORY: Mild respiratory distress. Respirations not labored. Cough productive of moderate amounts of white sputum. Breath sounds within normal limits. CVS: Cardiac rhythm: sinus tachycardia. GI / : Abdomen soft and nontender. No abdominal tenderness, diarrhea or difficulty with urination. No nausea noted. No emesis noted. SKIN: Skin is warm and dry. -- 06:37 10/12/24 MERVAT Hill R.N. NURSING PROGRESS NOTES 06:21 10/12/24. IV NS 0.9 % 1000 mL started in bag#1 1000 mL at 999 mL/hr via Site# 1. Allergies verified and confirmed 5 rights. Via dial-a-flow. IV patency established. IV site checked: no pain, redness, or swelling. IV flushed thoroughly pre-medication administration. Information reviewed with patient including reason for taking this medication. Verbalizes understanding. -- 06:23 10/12/24 MERVAT Hill R.N. 06:10/12/24. Site #1 started via IV in the right antecubital space with a 20g angiocath with aseptic technique and good blood return; 1 attempt. Blood drawn: rainbow set tube(s). Labeled in the presence of the patient and sent to the lab. Saline lock flushed with 5 mL saline. -- 06:23 10/12/24 MERVAT Hill R.N. 06:10/12/24. BP: 104/62 MAP: 71 mmHg. HR: 97 bpm. -- 06:38 10/12/24 MERVAT Hill R.N. 06:10/12/24. Reglan IVP 10 mg given via Site# 1. Allergies verified and confirmed 5 rights. IV patency established. IV site checked: no pain, redness, or swelling. IV flushed thoroughly pre-medication administration. IVP given by nurse. Information reviewed with patient including reason for taking this medication. Verbalizes understanding. -- 06:27 10/12/24 MERVAT Hill R.N. 06:10/12/24. Acetaminophen (Tylenol) PO 975 mg given. Allergies verified and confirmed 5 rights. Information reviewed with patient including sedative warning. Verbalizes understanding. (11/26 generaliz (more content not included)... Normal [facility] ED ORDER SHEET ([facility] ONLY)on 10-18-2024 ED ORDER SHEET ([facility] ONLY) Order Sheet Order Sheet [address] [address] [id number] 10/12/2024 [facility]: [id number] Sex: Female : 2005 Age: 19y MEASUREMENTS: Wt: 76.7 kg, Ht/Bennett: 61.0 in, BMI: 31.93 ALLERGIES: No known drug allergies MEDICATION/IV/DRIP/ FLUID ORDERS Order Description Priority Entered Acknowledged Completed IV NS 0.9 %1000 mL at 999 06:11 10/12/2024 06:23 mL/hr (NOW x1) Jonna SaldivarODonnie 10/12/2024 Dylan Hill R.N. Reglan IVP10 mg (NOW x1) 06:11 10/12/2024 06:27 George Watson D.O. 10/12/2024 Dylan Hill R.N. Acetaminophen (Tylenol) 06:11 10/12/2024 06:30 PO975 mg (NOW x1) George Watson D.O. 10/12/2024 Dylan Hill R.N. LAB ORDERS Order Description Priority Entered Acknowledged Collected Completed CBC w Diff Stat Stat 06:11 10/12/2024 06:21 10/12/2024 06:32 10/12/2024 Dylan Saldivar Charles Wilbur, 1 of 3 Order Sheet Jordon.Salomon Kahn.N. R.N. Troponin-I Stat Stat 06:11 10/12/2024 06:21 10/12/2024 06:32 10/12/2024 Dylan Saldivar Charles Wilbur, D.O. R.N. R.NDonnie EKG - ED Stat Stat 06:11 10/12/2024 06:21 10/12/2024 07:09 10/12/2024 Dylan Saldivar Brittany D.O. R.N. [place] BMP Stat Stat 06:11 10/12/2024 06:21 10/12/2024 06:32 10/12/2024 Dylan Saldivar Charles Wilbur, D.O. R.N. RDonnieNDonnie DIAGNOSTIC STUDY ORDERS Order Description Priority Entered Acknowledged Completed Chest 2V Stat Stat 06:11 10/12/2024 06:21 06:32 George Watson D.O. 10/12/2024 10/12/2024 Dylan Leonardo R.NDonnie R.NDonnie Reason for Study: Chest Pain STAFF ORDERS Order Description Priority Entered Acknowledged Collected Completed IV Saline Lock 06:11 10/12/2024 06:21 10/12/2024 06:32 10/12/2024 Dylan Saldivar Charles Wilbur, D.O. R.N. RDonnieNDonnie Pulse Oximeter 06:11 10/12/2024 06:21 10/12/2024 06:32 10/12/2024 Dylan Saldivar Charles Wilbur, D.O. R.NDonnie RMora 2 of 3 Order Sheet [Electronically signed by George Watson D.O. (10/12/2024 07:10 EST)] 3 of 3 Normal [facility] ED PHYSICIAN CLINICAL REPORT on 10-18-2024 ED PHYSICIAN CLINICAL REPORT Narrative Physician Clinical Narrative [address] [address] [id number] 10/12/2024 Patient: ERIKA PINEDA Sex: Female : 2005 Age: 19y Primary Insurance: [employer] OUTPATIENT Policy Number: [id number] Group Number: [id number] Subscriber: Other Secondary Insurance: [employer] [facility] OUTPATIENT Policy Number: [id number] Group Number: [id number] Subscriber: Other Measurements Wt: 76.7 kg, Ht/Bennett: 61.0 in, BMI: 31.93 Initial Vital Sign Measured Time BP MAP HR RR O2Sat ETCO2 Temp Pain GCS RTS 06:01 10/12/2024 100/55 70 111 18 95% 100.3 F 7 Time Seen: 06:02 10/12/2024. Arrived- By private vehicle. Historian- patient. HISTORY OF PRESENT ILLNESS Chief Complaint: CHEST PAIN. It is described as located in the central chest area. (19-year-old female with no chronic medical conditions 21 weeks presents to the ED or flu-like symptoms. She reports it yesterday she was seen at an urgent care and tested positive for flu A. She was prescribed Tamiflu however had vomiting with it therefore has discontinued it and does not plan to take it any further. She is on day 3 of illness. Reports congestion, runny nose, sore throat, cough productive of mucus and without hemoptysis. She also reports body aches, fever, chills. Has fatigue. She has had nausea and vomiting over the past couple of days. Denies diarrhea, constipation, urinary symptoms. Denies any abdominal pain, contractions/crampi ng. No vaginal bleeding, loss of fluid. Reports he has had normal care [facility] without any complications thus far in .). Is still present. The patient has had difficulty breathing, nausea and vomiting. Similar symptoms previously. None. 1 of 10 Narrative Recent medical care: The patient was seen recently at another facility. REVIEW OF SYSTEMS CONSTITUTIONAL: The patient has had fever and chills. : Currently . No difficulty with urination. NEUROLOGICAL: No fainting episodes or headache. THROAT: The patient has had a sore throat. CVS: No calf pain. SKIN: No skin rash. RESPIRATORY: The patient has had a cough. GI: No abdominal pain. All other systems reviewed and are negative. PAST HISTORY See nurses notes. no known problem Surgeries: Dental Surgery Medications: Gummies (DHA-EPA) oral Allergies: no known drug allergies SOCIAL HISTORY Never smoker. Is a local resident. ADDITIONAL NOTES The nursing notes have been reviewed. PHYSICAL EXAM Vital Signs: Have been reviewed. Appearance: Alert. No acute distress. Eyes: Pupils equal, round and reactive to light. Eyes normal inspection. No scleral icterus. ENT: Ears normal. Nasal discharge present. Pharynx normal. Normal ear exam. No pharyngeal erythema or 2 of 10 Narrative tonsillar exudate. The mucous membranes are not dry. Neck: Normal inspection. Neck supple. CVS: Tachycardia. Normal heart rate. Heart sounds normal. Pulses normal. Respiratory: No respiratory distress. Breath sounds normal. No retractions, accessory muscle use, crackles, rhonchi or wheezes. No prolonged expiration. Abdomen: Soft and nontender. Bowel sounds normal. No mass. No rebound tenderness or guarding. Back: Normal external inspection. No CVA tenderness. Skin: Skin warm and dry. Normal skin color. No rash. Normal skin turgor. Extremities: Extremities exhibit normal ROM. No calf tenderness. No lower extremity edema. Neuro: No alteration in mental status. No motor deficit. No sensory deficit. LABS, X-RAYS, AND EKG 12-LEAD EKG: No acute ischemia. Tachycardia (104). Sinus tachycardia. Normal P waves. Normal axis. Normal QT. T wave inversion in lead III and V1. No ST elevation or depression. The study has been interpreted contemporaneously by me. The study has been independently viewed by me. The EKG appears to be a good tracing. Interpretation time: 06:37 10/12/2024. Chest X-ray: No acute disease. Normal lung markings present. Normal heart size. No infiltrate. No fracture. No bony lesion present. Views: PA and lateral. The X-rays were independently viewed by me and interpreted contemporaneously by me. Interpretation time: 06:36 10/12/2024. PROGRESS AND PROCEDURES MEDICAL DECISION MAKING: (Patient evaluated in ED for chest discomfort, flu-like symptoms, shortness of breath. Patient tested positive for flu a yesterday the urgent care. On day 3 of illness. In an history of cardiac or pulmonary disease. Currently in 2nd trimester which has been uncomplicated so far. Did not report any abdominal pain, loss of fluids, or vaginal bleeding. On vitals was borderline febrile 100.3 F, hemodynamically stable with mild tachycardia 110. Likely due to dehydration from vomiting over the past couple of days and decreased p.o. intake. She wa (more content not included)... Normal [facility] ED [facility] 10-18-2024 ED [facility] [address] [place] [address] [id number] 10/12/2024 Patient: ERIKA PINEDA Sex: Female : 2005 Age: 19y Item Facility Professional Category Description Code Code Quantity Fee Total Drugs Normal Saline 717682 1 $0.00 $0.00 1000cc (519237) Nurse/E/M EMERGENCY 180924 1 $0.00 $0.00 DEPARTMENT VISIT HIGH/URGENT SEVERITY (20139-82) Nurse/IV/IM/Infusio ns Hydration 865984 1 $0.00 $0.00 additional hour (32970) Nurse/IV/IM/Infusio ns IVP initial 330840 1 $0.00 $0.00 (20770) Grand Total $0.00 Providers Aidee Saldivar M.D. 1 of 2 Superbil Chief Complaint CHEST PAIN. Principal Diagnoses Influenza type A with upper respiratory infection. Probable costochondritis Vomiting with nausea. influenza A. ICD-10 Codes J11.1: Influenza due to unidentified influenza virus with other respiratory manifestations J06.9: Acute upper respiratory infection, unspecified R11.2: Nausea with vomiting, unspecified 2 of 2 Normal [facility] ED VISIT SUMMARYon ED VISIT SUMMARY Visit Overview Visit Overview [address] [place] [address] [id number] 10/12/2024 Patient: ERIKA PINEDA Sex: Female : 2005 Age: 19y 10/18/2024 07:26 AM EST ED Arrival:05:53 10/12/2024 EST Status: Recent Travel:no Language:eng Adv Directive: Isolation Status: Ethnicity:N Fall Risk:no risk Infectious Disease Exposure:no Measurements:5'1 / 154.9 Self-Harm Status:risk Sepsis Screen:negative cm 169.0 lb / 76.7 kg Chief Complaint:FLU and (Pt states she just tested positive for flu. She c/o N/V.) ALLERGIES No Known Drug Allergies HOME MEDICATIONS Gummies (DHA-EPA) oral PAST MEDICAL HISTORY / PROBLEMS None status: currently : 21 weeks 1 of 3 Visit Overview See nurses notes PAST SURGICAL HISTORY Dental Surgery SOCIAL HISTORY Smoking status: No Alcohol use: No Drug use: No ED COURSE MEDICATIONS GIVEN IN EMERGENCY DEPARTMENT 06:21 10/12/24 IV NS 0.9 % 1000 mL 999 mL/hr 06:25 10/12/24 Reglan IVP 10 mg 06:27 10/12/24 Acetaminophen (Tylenol) PO 975 mg IV SITE INFORMATION INTAKE OUTPUT REASSESMENT (most recent) 07:33 10/12/24. heart tones: (140 per eric RN). VITAL SIGNS First Vitals Last Vitals Temp 06:01 02/24/25 100.3 F Temp 08:38 10/12/24 BP 06:01 10/12/24 100/55 BP 08:38 10/12/24 HR 06:01 10/12/24 111 HR 08:38 10/12/24 97 RR 06:01 10/12/24 18 RR 08:38 10/12/24 O2 Sat 06:01 10/12/24 95% O2 Sat 08:38 10/12/24 97% Pain 06:01 10/12/24 7 Pain 08:38 10/12/24 ETCO2 06:01 10/12/24 ETCO2 08:38 10/12/24 GCS 06:01 10/12/24 GCS 08:38 10/12/24 2 of 3 Visit Overview First Vitals Last Vitals RTS 06:01 10/12/24 RTS 08:38 10/12/24 PROCEDURES NURSING INTERVENTIONS LABS / STUDIES LABS / STUDIES ORDERED BMP CBC w Diff Chest 2V EKG - ED Troponin-I LABS / STUDIES PENDING IMPORT CHEST 2 VIEWS CLINICAL IMPRESSION INFLUENZA TYPE A WITH UPPER RESPIRATORY INFECTION PROBABLE COSTOCHONDRITIS VOMITING WITH NAUSEA 3 of 3 Normal [facility] ED VITALS FLOW SHEETon 10-18 ED VITALS FLOW SHEET Vitals Vital Sign Flow Sheet [address] [address] [id number] 10/12/2024 Patient: ERIKA PINEDA Sex: Female : 2005 Age: 19y Measurements Wt: 76.7 kg, Ht/Bennett: 61.0 in, BMI: 31.93 Measured Time BP MAP HR RR O2Sat ETCO2 Temp Pain GCS RTS 08:38 10/12/2024 97 97% 08:33 10/12/2024 88 96% 08:28 10/12/2024 87 97% 08:24 10/12/2024 94/50 61 91 08:23 10/12/2024 115 96% 08:18 10/12/2024 96 96% 08:13 10/12/2024 98 96% 08:13 10/12/2024 100/55 67 101 08:08 10/12/2024 91 100% 08:08 10/12/2024 88/47 59 94 08:03 10/12/2024 88 98% 07:58 10/12/2024 88 98% 07:54 10/12/2024 88/41 53 91 07:53 10/12/2024 86 100% 07:48 10/12/2024 87 100% 1 of 2 Vitals Measured Time BP MAP HR RR O2Sat ETCO2 Temp Pain GCS RTS 07:43 10/12/2024 92 96% 07:38 10/12/2024 93 96% 07:33 10/12/2024 96 93% 07:28 10/12/2024 95 95% 07:24 10/12/2024 91/43 55 95 07:23 10/12/2024 92 96% 07:23 10/12/2024 91/34 52 96 07:18 10/12/2024 93 94% 07:13 10/12/2024 100 96% 07:08 10/12/2024 94 94% 07:03 10/12/2024 95 94% 06:58 10/12/2024 105 95% 06:53 10/12/2024 101 93% 06:48 10/12/2024 97 93% 06:38 10/12/2024 118 98% 06:33 10/12/2024 101 94% 06:28 10/12/2024 103 94% 06:24 10/12/2024 104/62 71 97 06:23 10/12/2024 100 92% 06:01 10/12/2024 100/55 70 111 18 95% 100.3 F 7 2 of 2 Normal [facility] BMP with eGFRon 10-12-2024 AGE 19 years Normal [facility] Comment on above: Performed By: #### 2 [id number] #### [facility],[address] [place] [address] Anion gap [Moles/Vol] 18 mmol/L Normal - [facility] Comment on above: Performed By: #### 2 07155 #### [facility],[address] [place], [place] [id number] BMP with eGFR Normal [facility] Comment on above: Result Comment: BASI C METABOLIC PANEL Performed By: #### 2 43902 #### [facility],[address] [place], [place] [id number] Calcium [Mass/Vol] 8.8 mg/dL Normal 8.5 - 10.1 [facility] Comment on above: Performed By: #### 2 13040 #### [facility],[address] [place], [place] [id number] Chloride [Moles/Vol] 102 mmol/L Normal 98 - 107 [facility] Comment on above: Performed By: #### 2 28907 #### [facility],[address] [place], [place] [id number] CO2 [Moles/Vol] 20.4 mmol/L Low 21.0 - 32.0 [facility] Comment on above: Performed By: #### 2 98006 #### [place] [id number] Creatinine [Mass/Vol] 0.62 mg/dL Normal 0.55 - 1.02 [facility] Comment on above: Performed By: #### 2 04053 #### [place] [id number] GFR/1.73 sq M.predicted among non-blacks MDRD (S/P/Bld) [Vol rate/Area] mL/min/{1.73_m2} Normal 60 - 999 [facility] Comment on above: Performed By: #### 2 49898 #### [facility],[address] [place] [address] Result Comment: ACCO RDING TO THE NATIONAL KIDNEY DISEASE EDUCATION PROGRAM(NKDE), A NORMAL eGFR IS A VALUE GREATER THAN OR EQUAL TO 60 ML/MIN/1.73 SQ METERS. CHRONIC KIDNEY DISEASE: <60mL/MIN/1.73 SQ METERS KIDNEY FAILURE: <15mL/MIN/1.73 SQ METERS THIS TEST SHOULD ONLY BE USED FOR PATIENTS 18 YEARS OF AGE AND OLDER. Glucose [Mass/Vol] 74 mg/dL Normal 74 - 106 [facility] Comment on above: Performed By: #### 2 45259 #### [facility],[address] [place] [address] Potassium [Moles/Vol] 3.2 mmol/L Low 3.5 - 5.1 [facility] Comment on above: Performed By: #### 2 62151 #### [facility],[address] [place] [address] Sodium [Moles/Vol] 137 mmol/L Normal 136 - 145 [facility] Comment on above: Performed By: #### 2 02612 #### [facility],[address] [place] [address] Urea nitrogen [Mass/Vol] 8 mg/dL Normal 7 - 18 [facility] Comment on above: Performed By: #### 2 69694 #### [facility],[address] [place] [address] CBC + DIFFon 10-12-2024 Baso # 0.03 x10EE3/UL Normal 0.00 - 0.10 [facility] Comment on above: Performed By: #### 2 15887 #### [facility],[address] [place] [address] Basophils/100 WBC (Bld) 0.3 % Normal 0.0 - 2.0 [facility] Comment on above: Performed By: #### 2 20383 #### [facility],[address] [place], [place] [id number] CBC + DIFF Normal [facility] Comment on above: Result Comment: CBC- COMPLETE BLOOD COUNT Performed By: #### 2 77372 #### [facility],[address] [place] [address] EO # 0.03 x10EE3/UL Normal 0.00 - 0.50 [facility] Comment on above: Performed By: #### 2 70043 #### [facility],[address] [place] [address] Eosinophils/100 WBC (Bld) 0.4 % Normal 0.0 - 7.0 [facility] Comment on above: Performed By: #### 2 28026 #### [facility],[address] [place] [address] Erythrocyte distribution width (RBC) [Ratio] 13.3 % Normal 12.0 - 15.6 [facility] Comment on above: Performed By: #### 2 29102 #### [facility],[address] [place] [address] Hematocrit (Bld) [Volume fraction] 36.0 % Normal 34.0 - 46.0 [facility] Comment on above: Performed By: #### 2 89721 #### [facility],[address] [place] [address] Hemoglobin (Bld) [Mass/Vol] 12.4 g/dL Normal 12.0 - 16.0 [facility] Comment on above: Performed By: #### 2 49415 #### [facility],[address] [place] [address] Lymph # 1.07 x10EE3/UL Normal 0.80 - 2.80 [facility] Comment on above: Performed By: #### 2 65952 #### [facility],[address] [place], [place] [id number] Lymphocytes/100 WBC (Bld) 12.5 % Low 20.0 - 45. 0 [facility] Comment on above: Performed By: #### 2 34802 #### [facility],[address] [place], [place] [id number] MANUAL DIFF N/A Normal [facility] Comment on above: Performed By: #### 2 40010 #### [facility],[address] [place] [address] MCH (RBC) [Entitic mass] 30 pg Normal 27 - 33 [facility] Comment on above: Performed By: #### 2 12440 #### [facility],[address] [place] [address] MCHC 34 X10 3 Normal 32 - 36 [facility] Comment on above: Performed By: #### 2 91090 #### [facility],[address] [place] [address] MCV (RBC) [Entitic vol] 88 fL Normal 80 - 99 [facility] Comment on above: Performed By: #### 2 17648 #### [facility],[address] [place] [address] Aurora # 0.48 x10EE3/UL Normal 0.20 - 1.00 [facility] Comment on above: Performed By: #### 2 71217 #### [facility],[address] [place] [address] MONOS % 5.6 % Normal 0.0 - 10.0 [facility] Comment on above: Performed By: #### 2 03703 #### [facility],[address] [place] [address] Morphology Juvencio (Bld) [Interp] N/A Normal [facility] Comment on above: Performed By: #### 2 03238 #### [facility],[address] [place] [address] Neut # 6.95 x10EE3/UL Normal 1.50 - 7.10 [facility] Comment on above: Performed By: #### 2 12568 #### [facility],[address] [place] [address] Neutrophils/100 WBC (Bld) 81.3 % High 46.0 - 76. 0 [facility] Comment on above: Performed By: #### 2 76348 #### [facility],[address] [place] [address] PLATELET 313 x10EE3/UL Normal 150 - 450 [facility] Comment on above: Performed By: #### 2 00174 #### [facility],[address] [place] [address] Platelet mean volume (Bld) [Entitic vol] 8.1 fL Normal 6.6 - 10.5 [facility] Comment on above: Result Comment: AUTO MATED DIFFERENTIAL Performed By: #### 2 69185 #### [facility],[address] [place] [address] RBC 4.07 x 10EE6/UL Low 4.10 - 5.30 [facility] Comment on above: Performed By: #### 2 85802 #### [facility],[address] [place] [address] WBC 8.6 x 10EE3/UL Normal 4.5 - 10.8 [facility] Comment on above: Performed By: #### 2 02023 #### [facility],[address] [place] [address] CHEST 2 VIEWSon 10-12-2024 CHEST 2 VIEWS [place] [address] Patient: ERIKA PINEDA Phone#: : 2005 Age: 19 Gender: F Pt. Type: ER Account: [id number] Location: [facility] Ordering: DR. ALEX WATSON Exam Date: 10/12/2024/6:28 Family Phys: Charge Code: [id number] Physician: Brantley Order #: [id number] Dose#: PROCEDURE: X-RAY CHEST 2 VIEWS COMPARISON: None. INDICATIONS: Chest pain. FINDINGS: LUNGS: Normal. No significant pulmonary parenchymal abnormalities. VASCULATURE: Normal. Unremarkable pulmonary vasculature. CARDIAC: Normal. No cardiac silhouette abnormality or cardiomegaly. MEDIASTINUM: Normal. No visible mass or adenopathy. PLEURA: Normal. No effusion or pleural thickening. BONES: Normal. No fracture or visible bony lesion. OTHER: Negative. CONCLUSION: No acute disease. Dictated by: Alyssa Gutierrez MD on 10/12/2024 at 13:03 Approved by: Alyssa Gutierrez MD on 10/12/2024 at 13:04 Normal [facility] TROPONINon 10-12-2024 HS TROPONIN <4.0 Normal 0.0 - 51.4 [facility] Comment on above: Performed By: #### 2 93300 #### [facility],[address] [place] [address] CNOVon 10-11-2024 CNOV Office Visit (UCWSTR) ---- ERIKA PINEDA ([id number]) 1 F Date Time Provider Department 10/11/24 11:00 AM IKER MORROW [facility] During your visit today, we recorded the following information about you: Temperature Pulse Respiration Blood pressure 99.6 degrees 107/minute 20/minute 116/68 Weight 75.7 kg Iker Morrow APRN.OFFSET LITHOGRAPHIC PRESS OPERATOR 10/11/2024 11:45 AM Signed CC: Patient presents with: Shortness of Breath: Cough, chest congestion, low fever x last night HPI: Erika Pineda is a 19 year old female who presents to the office with complaint of chest congestion, head congestion, cough, nonproductive, and fever since last night. Symptoms are staying the same. Associated symptoms includes sore throat and cough. Denies wheezing, dyspnea, nausea, vomiting , and diarrhea. Treatments tried include nothing so far. with no relief of symptoms. Sick contacts: unknown. History of asthma, frequent episodes of bronchitis, chronic bronchitis, bronchiectasis or COPD: No Smoker: No Seasonal/environmen iam allergies: No The ROS is otherwise negative. The patient's pmh, medications, allergies, and past visits are reviewed. PHYSICAL EXAM: BP 116/68 Pulse 107 Temp 37.6 ?C (99.6 ?F) Resp 20 Wt 75.7 kg (166 lb 14.2 oz) LMP (LMP Unknown) SpO2 100% General appearance: alert, cooperative, pleasant, in no acute distress Head: Normocephalic Eyes: EOM's intact, conjunctiva pink and moist, no icterus, sclera white, non-injected Ears: Right ear: External ear/canal- Normal, TM - clear with good landmarks. Left ear: External ear/canal- Normal, TM - clear with good landmarks Oropharynx:mild erythema, without exudates present Heart: Negative. RRR without obvious murmur, gallop, or rubs. No ectopy. Lungs: clear to auscultation, without rales or wheeze, good air exchange PAST MEDICAL HISTORY Diagnosis Date Anxiety and depression 03/23/2022 Bipolar affective disorder, current episode mixed ([facility]) 07/30/2023 Breakthrough bleeding 03/23/2022 COVID-19 05/02/2021 Infection due to Chlamydia species 03/23/[address] 04/12/2021 Recurrent major depressive disorder ([facility]) 07/30/2023 Suicide attempt by acetaminophen overdose ([facility]) 03/03/2023 also on 06/2022 PAST SURGICAL HISTORY Procedure Laterality Date PAST SURGICAL HISTORY OF 2019 Oral surgery under [facility] Patient has no known allergies. MEDICATIONS vit no.124/iron/folic ( VITAMIN ORAL) Take by mouth. buPROPion XL (WELLBUTRIN XL) 300 mg 24 hr tablet Take 1 tablet by mouth once daily. hydrOXYzine HCl (ATARAX) 50 mg tablet Take 1 tablet by mouth once daily as needed for anxiety. FAMILY HISTORY Problem Relation Age of Onset [...] Never Smokeless tobacco: Never Vaping Use Vaping status: Former Quit date: 08/19/2020 Substance Use Topics Alcohol use: Not Currently Drug use: Never ASSESSMENT/PLAN: 1. Sore throat - ICD9: 462, ICD10: J02.9 (primary diagnosis) - STREP A MOLECULAR (POC) - neg 2. URI, acute - ICD9: 465.9, ICD10: J06.9 - INFLUENZA AANDB MOLECULAR (POC) - invalid here - COVID AND INFLUENZA A/B AND RSV PCR, ROUTINE - OSELTAMIVIR 75 MG CAPSULE Because patient is and when the fluids have popped invalid here they have usually been positive on send out. Patient is negative for flu however stop the Tamiflu Prescription instructions reviewed with patient as applicable. Potential red flag symptoms discussed with the patient. Reviewed appropriate action plan to take if red flag symptoms occur. Patient agreeable to treatment plan. Iker Morrow APRN.OFFSET LITHOGRAPHIC PRESS OPERATOR Referring Provider: SELF [[id number]] Allergies As of Date: 10/11/2024 (No Known Allergies) Date Reviewed: 10/11/2024 Reviewed by: Lashell Lockhart MA - Fully Assessed Reason for Visit: Shortness of Breath [227] Cmt: Cough, chest congestion, low fever x last night Primary Visit Diagnosis:Sore throat [J02.9] Other Visit Diagnosis:URI, acute [J06.9] Order(s):STREP A MOLECULAR (POC) [9178579] Order #: [id number]. #:[id number] INFLUENZA AANDB MOLECULAR (POC) [3944071] Order #: [id number] COVID AND INFLUENZA A/B AND RSV PCR, ROUTINE [SQCVFLRS] Order #: [id number]. #:[id number] oseltamivir (TAMIFLU) 75 mg capsuleTake 1 capsule by mouth two times a day for 5 days.Disp: 10 capsuleRfl: 0 Prescriptions as of 10/11/2024 - vit no.124/iron/folic ( VITAMIN ORAL) Take by mouth. (more content not included)... Normal [facility] STREP A MOLECULAR (POC)on Procedural Control Valid [facility] Strep A (POCT) Negative Negative [facility] Office Visit Reporton 10-08-2024 [place] Office Visit Report [facility] [address], [address] [place] [address] OFFICE VISIT Date of Service: 10/08/24 MR#: [id number] Acct: [id number] Name: ERIKA PINEDA Rep #: [id number] : 2005 Provider: MANINDER Norris ams Age/Sex: 19/F Location: [facility] [place] Status: Signed Intake Vital Signs 08/13/24 08:33 09/11/24 11:09 10/08/24 09:30 10/08/24 09:34 Height 5 ft 1 in 5 ft 1 in 5 ft 1 in 5 ft 1 in Weight: 168 lb 6 oz BMI 31.8 BP 107/55 L Intake Visit Reasons: 20 wk ob Chief Complaint: 20 wk ob Is patient in pain?: No Allergies No Known Allergies Allergy (Verified 10/08/24 09:30) Medications ???Medication ???Instructions ???Recorded ???Confirmed ???Type PNV 153-FA 400 mcg-om3 35 mg-dha tab PO 07/03/24 10/08/24 History 25 mg-epa 5 mg-fish oil chew tablet ferrous sulfate 137 mg (45 mg 137 mg PO QDAY 07/03/24 10/08/24 H istory iron) tablet,extended release (Slow Fe) sertraline 50 mg tablet (Zoloft) 50 mg PO QDAY #30 tabs 07/20/24 Rx Last Menstrual Period: 05/16/24 : No PFSH PFSH Medical History Irregular menstrual bleeding Seasonal allergies Hx of trauma Surgical History H/O oral surgery Social History adopted: No household members: family current occupational status: employed current occupation: [employer] pets and animals: Yes (Avoid litterbox) pets and animals: cat(s) and dog(s) history of recent travel: No sexually active: Yes Smoking Status: Former smoker quit date: 06/02/24 Electronic Cigarette Use: with nicotine alcohol intake: never substance use type: does not use well-balanced diet: about half the time caffeine: No eating out: 1-3 times/week during the past year weight has: remained stable what type of physical activity do you participate in: none susana/christian: None seatbelt use: always do you feel safe at home: Yes additional social history: BF Richard- [employer] History 1 Elective abortions Hx Para 0 Spontaneous abortions Hx # Term Pregnancies Ectopic pregnancies Hx # Pregnancies Multiple births # of living children HPI 20 wk ob Details: ERIKA PINEDA is a 19 year old who presents for routine OB visit. OB Visit MCKENZIE Calculator Estimated Delivery Date Method Current WG Current Estimate 02/20/25 LMP (Certain) 20w 5d Other Estimates 02/24/25 Ultrasound #1 20w 1d Expected Delivery Route/Plan abor Preferences- CB/BF classes: [] labor support person: [] labor intervention preferences: [] pain management options preferred: [] cut cord/dad catch: [] : [] PP control planned: [] discussed possible routes of delivery and associated risks: [] special requests: [] Specific Issue/Plans Covid status: [] Flu vaccine: [] Tdap vaccine: [] Rhogam: [] LARC form signed: [] Problem list reviewed and updated with the most current plan of care details and appropriate orders placed. Relevant counseling for the gestational age provided. Continue routine care and follow up unless otherwise noted in visit notes/problem list details Initial Weight: Not Recorded Date -???-???-???-???-?? ?-???-???-???-???-? ??-???-???- EGA Weight BP Urine Prot -???-???-???-???-?? ?-???-???-???-???-? ??-???-???- Glucose FHR FuHt Pres Dilation -???-???-???-???-?? ?-???-???-???-???-? ??-???-???- Effaced St Visit Note 07/15/24 -???-???-???-???-?? ?-???-???-???-???-? ??-???-???- 8w 4d 162 lb 127/78 -???-???-???-???-?? ?-???-???-???-???-? ??-???-???- 181 -???-???-???-???-?? ?-???-???-???-???-? ??-???-???- KW- CRL cons with dates. Accepts NIPT 08/13/24 -???-???-???-???-?? ?-???-???-???-???-? ??-???-???- 12w 5d 162 lb 6 oz 122/71 Negative -???-???-???-???-?? ?-???-???-???-???-? ??-???-???- Negative 163 -???-???-???-???-?? ?-???-???-???-???-? ??-???-???- MH-No VB. N ausea persists/zofran sent. Br US confirm FHT. PN labs today 08/24/24 -???-???-???-???-?? ?-???-???-???-???-? ??-???-???- 14w 2d 163 lb 112/76 Negative -???-???-???-???-?? ?-???-???-???-???-? ??-???-???- Negative 150 -???-???-???-???-?? ?-???-???-???-???-? ??-???-???- SM- seen sec ondary to spotting over the weeknd seen in ER and viable IUP seen no abnormalities 09/11/24 -???-???-???-???-?? ?-???-???-???-???-? ??-???-???- 16w 6d Negative -???-???-???-???-?? ?-???-???-???-???-? ??-???-???- Negative 153 -???-???-???-???-?? ?-???-???-???-???-? ??-???-???- KW- no vb/cr amping. +flutters. anatomy US ordered. 10/08/24 -???-???-???-???-?? ?-???-???-???-???-? ??-???-???- 20w 5d 168 lb 6 oz 107/55 -???-???-??? (more content not included)... Normal [facility] - Chemistry and C hemistry - challengeon 09-11-2024 Glucose Ql (U) Negative [facility] - Urinalysison Protein Ql (U) Negative [facility] Office Visit Reporton 09-11-2024 [facility] Office Visit Report [facility] [address], [address] [place] [address] OFFICE VISIT Date of Service: 09/11/24 MR#: [id number] Acct: [id number] Name: ERIKA PINEDA Rep #: [id number] : 2005 Provider: MANINDER Norris ams Age/Sex: 19/F Location[place] [facility] [place] Status: Signed Intake Vital Signs 08/13/24 08:33 08/24/24 10:42 09/11/24 11:09 Height 5 ft 1 in 5 ft 1 in 5 ft 1 in Weight: 161 lb 2 oz BMI 30.4 BP 116/72 Intake Visit Reasons: 16 wk ob Cath Lab Required: No Is patient in pain?: No Allergies No Known Allergies Allergy (Verified 09/11/24 11:09) Medications ???Medication ???Instructions ???Recorded ???Confirmed ???Type PNV 153-FA 400 mcg-om3 35 mg-dha tab PO 07/03/24 09/11/24 History 25 mg-epa 5 mg-fish oil chew tablet ferrous sulfate 137 mg (45 mg 137 mg PO QDAY 07/03/24 09/11/24 History iron) tablet,extended release (Slow Fe) sertraline 50 mg tablet (Zoloft) 50 mg PO QDAY #30 tabs 07/20/24 09/11/24 Rx Last Menstrual Period: 05/16/24 Zika: Zika virus screening: Negative : No Have you fallen in the past year?: No PFSH PFSH Medical History Irregular menstrual bleeding Seasonal allergies Hx of trauma Surgical History H/O oral surgery Social History adopted: No household members: family current occupational status: employed current occupation: [employer] pets and animals: Yes (Avoid litterbox) pets and animals: cat(s) and dog(s) history of recent travel: No sexually active: Yes Smoking Status: Former smoker quit date: 06/02/24 Electronic Cigarette Use: with nicotine alcohol intake: never substance use type: does not use well-balanced diet: about half the time caffeine: No eating out: 1-3 times/week during the past year weight has: remained stable what type of physical activity do you participate in: none susana/christian: None seatbelt use: always do you feel safe at home: Yes additional social history: BF Richard- [employer] History 1 Elective abortions Hx Para 0 Spontaneous abortions Hx # Term Pregnancies Ectopic pregnancies Hx # Pregnancies Multiple births # of living children HPI 16 wk ob Details: ERIKA PINEDA is a 19 year old who presents for routine OB visit. OB Visit MCKENZIE Calculator Estimated Delivery Date Method Current WG Current Estimate 02/20/25 LMP (Certain) 16w 6d Other Estimates 02/24/25 Ultrasound #1 16w 2d Expected Delivery Route/Plan abor Preferences- CB/BF classes: [] labor support person: [] labor intervention preferences: [] pain management options preferred: [] cut cord/dad catch: [] : [] PP control planned: [] discussed possible routes of delivery and associated risks: [] special requests: [] Specific Issue/Plans Covid status: [] Flu vaccine: [] Tdap vaccine: [] Rhogam: [] LARC form signed: [] Problem list reviewed and updated with the most current plan of care details and appropriate orders placed. Relevant counseling for the gestational age provided. Continue routine care and follow up unless otherwise noted in visit notes/problem list details Initial Weight: Not Recorded Date -???-???-???-???-?? ?-???-???-???-???-? ??-???-???- EGA Weight BP Urine Prot -???-???-???-???-?? ?-???-???-???-???-? ??-???-???- Glucose FHR FuHt Pres Dilation -???-???-???-???-?? ?-???-???-???-???-? ??-???-???- Effaced St Visit Note 07/15/24 -???-???-???-???-?? ?-???-???-???-???-? ??-???-???- 8w 4d 162 lb 127/78 -???-???-???-???-?? ?-???-???-???-???-? ??-???-???- 181 -???-???-???-???-?? ?-???-???-???-???-? ??-???-???- KW- CRL cons with dates. Accepts NIPT 08/13/24 -???-???-???-???-?? ?-???-???-???-???-? ??-???-???- 12w 5d 162 lb 6 oz 122/71 Negative -???-???-???-???-?? ?-???-???-???-???-? ??-???-???- Negative 163 -???-???-???-???-?? ?-???-???-???-???-? ??-???-???- MH-No VB. N ausea persists/zofran sent. Br US confirm FHT. PN labs today 08/24/24 -???-???-???-???-?? ?-???-???-???-???-? ??-???-???- 14w 2d 163 lb 112/76 Negative -???-???-???-???-?? ?-???-???-???-???-? ??-???-???- Negative 150 -???-???-???-???-?? ?-???-???-???-???-? ??-???-???- SM- seen sec ondary to spotting over the weeknd seen in ER and viable IUP seen no abnormalities 09/11/24 -???-???-???-???-?? ?-???-???-???-???-? ??-???-???- 16w 6d Negative -???-???-???-???-?? ?-???-???-???-???-? ??-???-???- Negative 153 -???-???-???-???-?? ?-???-???-???-???-? ??-???-???- KW- no vb/cr amping. +flutters. anatomy US ordered. ACOG First Trimester First Trimester: Discussed B (more content not included)... Normal [facility] - Chemistry and C hemistry - challengeon 08-24-2024 Glucose Ql (U) Negative [facility] - Urinalysison Protein Ql (U) Negative [facility] Office Visit Reporton 08-24-2024 [facility] Office Visit Report [facility] [address], [address] [place] [address] OFFICE VISIT Date of Service: 08/24/24 MR#: [id number] Acct: [id number] Name: ERIKA PINEDA Rep #: [id number] : 2005 Provider: Dr. Mar lim MD Age/Sex: 19/F Location: [facility] [place] Status: Signed Intake Vital Signs 08/22/24 12:27 08/24/24 10:40 08/24/24 10:42 Height 5 ft 1 in 5 ft 1 in 5 ft 1 in Weight: 163 lb BMI 30.8 BP 112/76 Intake Visit Reasons: 14w2d ER follow up Cath Lab Required: No Allergies No Known Allergies Allergy (Verified 08/24/24 10:41) Medications ???Medication ???Instructions ???Recorded ???Confirmed ???Type PNV 153-FA 400 mcg-om3 35 mg-dha tab PO 07/03/24 08/24/24 History 25 mg-epa 5 mg-fish oil chew tablet ferrous sulfate 137 mg (45 mg 137 mg PO QDAY 07/03/24 08/24/24 History iron) tablet,extended release (Slow Fe) sertraline 50 mg tablet (Zoloft) 50 mg PO QDAY #30 tabs 07/20/24 08/24/24 Rx Last Menstrual Period: 05/16/24 Zika: Zika virus screening: Negative : No Have you fallen in the past year?: No PFSH PFSH Medical History Irregular menstrual bleeding Seasonal allergies Hx of trauma Surgical History H/O oral surgery Social History adopted: No household members: family current occupational status: employed current occupation: [employer] pets and animals: Yes (Avoid litterbox) pets and animals: cat(s) and dog(s) history of recent travel: No sexually active: Yes Smoking Status: Former smoker quit date: 06/02/24 Electronic Cigarette Use: with nicotine alcohol intake: never substance use type: does not use well-balanced diet: about half the time caffeine: No eating out: 1-3 times/week during the past year weight has: remained stable what type of physical activity do you participate in: none susana/christian: None seatbelt use: always do you feel safe at home: Yes additional social history: BF Richard- [employer] History 1 Elective abortions Hx Para 0 Spontaneous abortions Hx # Term Pregnancies Ectopic pregnancies Hx # Pregnancies Multiple births # of living children HPI 14w2d ER follow up Details: ERIKA PINEDA is a 19 year old who presents for routine OB visit. OB Visit MCKENZIE Calculator Estimated Delivery Date Method Current WG Current Estimate 02/20/25 LMP (Certain) 14w 2d Other Estimates 02/24/25 Ultrasound #1 13w 5d Expected Delivery Route/Plan abor Preferences- CB/BF classes: [] labor support person: [] labor intervention preferences: [] pain management options preferred: [] cut cord/dad catch: [] : [] PP control planned: [] discussed possible routes of delivery and associated risks: [] special requests: [] Specific Issue/Plans Covid status: [] Flu vaccine: [] Tdap vaccine: [] Rhogam: [] LARC form signed: [] Problem list reviewed and updated with the most current plan of care details and appropriate orders placed. Relevant counseling for the gestational age provided. Continue routine care and follow up unless otherwise noted in visit notes/problem list details Initial Weight: Not Recorded Date -???-???-???-???-?? ?-???-???-???-???-? ??-???-???- EGA Weight BP Urine Prot -???-???-???-???-?? ?-???-???-???-???-? ??-???-???- Glucose FHR FuHt Pres Dilation -???-???-???-???-?? ?-???-???-???-???-? ??-???-???- Effaced St Visit Note 07/15/24 -???-???-???-???-?? ?-???-???-???-???-? ??-???-???- 8w 4d 162 lb 127/78 -???-???-???-???-?? ?-???-???-???-???-? ??-???-???- 181 -???-???-???-???-?? ?-???-???-???-???-? ??-???-???- KW- CRL cons with dates. Accepts NIPT 08/13/24 -???-???-???-???-?? ?-???-???-???-???-? ??-???-???- 12w 5d 162 lb 6 oz 122/71 Negative -???-???-???-???-?? ?-???-???-???-???-? ??-???-???- Negative 163 -???-???-???-???-?? ?-???-???-???-???-? ??-???-???- MH-No VB. N ausea persists/janellean sent. Br US confirm FHT. PN labs today 08/24/24 -???-???-???-???-?? ?-???-???-???-???-? ??-???-???- 14w 2d 163 lb 112/76 Negative -???-???-???-???-?? ?-???-???-???-???-? ??-???-???- Negative 150 -???-???-???-???-?? ?-???-???-???-???-? ??-???-???- SM- seen sec ondary to spotting over the weeknd seen in ER and viable IUP seen no abnormalities ACOG First Trimester First Trimester: Discussed Second Trimester Second Trimester: Signs and Symptoms of Labor, Selecting a care provider, Reproductive Life Planning Contreception, Care Planning, Depression/Anxiety and Intimate Partner Violence; Discuss (more content not included)... Normal [facility] Emergency Department Summary on 2024 Emergency Department Summary [facility] Medical Records Department [address] [place] [address] Emergency Department Summary 08/22/24 MR#: [id number] Acct: [id number] Name: ERIKA PINEDA Rep #: [id number] : 2005 19 From: Jonathon Vines MD PCP: Dr. Jorge Bearden MD Status:PRE ER Location: ED HPI HPI - Female History of Present Illness Chief Complaint: Vag Bld, Preg Informant: patient Pain Pain: Positive for Pelvic Pain Onset: Today Context: Gradual Onset Timing: Continuous Quality: Positive for Cramping Location: Suprapubic Current Severity: Mild Maximum Severity: Mild Bleeding Issue: Positive for Vaginal bleeding and Passing clots Onset: Today Current Severity: Similar to period Associated Symptoms Associated Symptoms: Negative for Dysuria, Frequency or Urgency Last known menstrual period: 05/09/24 Sexually: Positive for Active and Single Partner P: 0 Narrative Narrative: Healthy 19-year-old female around 14 weeks, follows with [place] [employer] has already had an ultrasound showing intrauterine , presenting with cramping and bleeding that started today. No syncope or presyncope. Unknown blood type. [facility] Medical History Irregular menstrual bleeding Seasonal allergies Hx of trauma Home Medications ???Medication ???Instructions ???Recorded ???Last Taken ???Type PNV 153-FA 400 mcg-om3 35 mg-dha tab PO 07/03/24 Unknown History 25 mg-epa 5 mg-fish oil chew tablet ferrous sulfate 137 mg (45 mg 137 mg PO QDAY 07/03/24 Unknown History iron) tablet,extended release (Slow Fe) sertraline 50 mg tablet (Zoloft) 50 mg PO QDAY #30 tabs 07/20/24 Unknown Rx ondansetron 4 mg disintegrating 4 mg PO Q4H PRN nausea and 08/13/24 Unknown Rx tablet vomiting #60 tabs Allergy/AdvReac Type Severity Reaction Status Date / Time No Known Allergies Allergy Verified 08/22/24 12:28 Surgical History H/O oral surgery Social History adopted: No household members: family current occupational status: employed current occupation: [employer] pets and animals: Yes (Avoid litterbox) pets and animals: cat(s) and dog(s) history of recent travel: No sexually active: Yes Smoking Status: Former smoker quit date: 06/02/24 Electronic Cigarette Use: with nicotine alcohol intake: never substance use type: does not use well-balanced diet: about half the time caffeine: No eating out: 1-3 times/week during the past year weight has: remained stable what type of physical activity do you participate in: none susana/christian: None seatbelt use: always do you feel safe at home: Yes additional social history: BF Richard- [employer] ROS ROS ED Constitutional Constitutional ED: Denies chills or fever(s) Eyes Eyes: Denies change in vision or diplopia ENT ENT ED: Denies rhinorrhea or sore throat Cardiovascular Cardiovascular: Denies chest pain or palpitations Respiratory/Chest Respiratory/Chest: Denies cough or dyspnea Gastrointestinal Gastrointestinal: Reports abdominal pain; Denies diarrhea, nausea or vomiting Genitourinary Genitourinary ED: Denies dysuria or hematuria Musculoskeletal Musculoskeletal: Denies back pain or neck pain Integumentary Denies abscess or rash Neurologic Neurologic: Denies headache(s), paresthesias or weakness Psychiatric Psychiatric: Reports anxiety; Denies suicidal thoughts EXAM Physical Exam Const Vital Signs: 08/22/24 12:27 Temperature 98.2 F Temperature Source Oral Pulse Rate 79 Respiratory Rate 16 Blood Pressure 126/64 H Blood Pressure Mean 84 Pulse Ox 100 Oxygen Delivery Method Room Air Positive well nourished and well developed General Appearance ED: well developed and NAD HEENT Reports moist mucous membranes normocephalic and atraumatic Eyes PERRL and EOMs intact bilaterally Neck full ROM and supple Resp normal respiratory effort and clear to auscultation bilaterally Cardio regular rate, regular rhythm and no murmurs GI non-distended GI Narrative: Mild suprapubic tenderness no guarding or rebound Auscultation: normoactive bowel sounds Palpation: soft Back/Spine no CVA tenderness General Back: other FROM Extremity normal to inspection General Extremety ED: Negative for edema, pulses abnormal or tenderness General Extremity: Negative for edema or pulses abnormal Neuro oriented x3, CN's II-XII intact bilaterally and no sensory deficits noted Sensorium / Orientation: awake and alert Motor Exam: strength 5/5 throughout Psych Mood Affect: tearful Skin no rashes or lesions noted and no wounds MDM MDM MDM Narrativ (more content not included)... Normal [facility] Absolute neutrophil countOrd ered By: Bernarda Weber on 08-13-2024 Neutrophils (Bld) [#/Vol] 6.6 10*3/uL 2.0-7.7 [facility] Basophil percentageOrdered B y: Bernarda Weber on 08-13-2024 Basophils/100 WBC (Bld) 0.4 % 0-1 [facility] CBC W/Diff, Automatedon 07-20 Absolute Lymph 3.20 X10 3/uL Normal 0.83-4.51 [facility] Comment on above: Performed By: #### M 8200.2203 #### [facility] [address] [place], [address] Absolute Neut 6.6 X10 3/uL Normal 2.0-7.7 [facility] Comment on above: Performed By: #### M 8200.2203 #### [facility] [address] [place], [address] Basophils/100 WBC (Bld) 0.4 % Normal 0-1 [facility] Comment on above: Performed By: #### M 8200.2203 #### [facility] [address] [place], [address] Eosinophils/100 WBC (Bld) 0.5 % Normal 0-5 [facility] Comment on above: Performed By: #### M 8200.2203 #### [facility] [address] [place], [address] Erythrocyte distribution width (RBC) [Ratio] 12.9 % Normal 11.6-14.6 [facility] Comment on above: Performed By: #### M 8200.2203 #### [facility] [address] [place], [address] Hematocrit (Bld) [Volume fraction] 38.0 % Normal 37-47 [facility] Comment on above: Performed By: #### [id number] #### [facility] [address] [place], [address] Hemoglobin (Bld) [Mass/Vol] 12.7 g/dL Normal 12.0-15.0 [facility] Comment on above: Performed By: #### [id number] #### [facility] [address] [place], [address] IG% 0.400 Normal 0.0-0.9 [facility] Comment on above: Result Comment: IG% - Immature Granulocytes (promyelocytes, myelocytes and metamyelocytes) > 1% indicates that a LEFT SHIFT is Present. Performed By: #### M 8200.2203 #### [facility] [address] [place], [address] Lymphocytes/100 WBC (Bld) 30.4 % Normal 19-41 [facility] Comment on above: Performed By: #### M 8200.2203 #### [facility] [address] [place], [address] MCH (RBC) [Entitic mass] 30.0 pg Normal 27.0-32.0 [facility] Comment on above: Performed By: #### [id number] #### [facility] [address] [place], [address] MCHC (RBC) [Mass/Vol] 33.4 g/dL Normal 32-36 [facility] Comment on above: Performed By: #### [id number] #### [facility] [address] [place], [address] MCV (RBC) [Entitic vol] 89.6 fL Normal 81-99 [facility] Comment on above: Performed By: #### [id number] #### [facility] [address] [place], [address] Monocytes/100 WBC (Bld) 5.1 % Normal 0-10 [facility] Comment on above: Performed By: #### [id number] #### [facility] [address] [place], [address] Neutrophils/100 WBC (Bld) 63.2 % Normal 47-70 [facility] Comment on above: Performed By: #### [id number] #### [facility] [address] [place], [address] Nucleated RBC (Bld) [#/Vol] 0 10*3/uL Normal 0-5 [facility] Comment on above: Performed By: #### M 8200.220 #### [facility] [address] [place], [address] Platelet mean volume (Bld) [Entitic vol] 10.5 fL Normal 6.2-12.0 [facility] Comment on above: Performed By: #### [id number] #### [facility] [address] [place], [address] Platelets (Bld) [#/Vol] 340 10*3/uL Normal 150-450 [facility] Comment on above: Performed By: #### M [id number] #### [facility] [address] [place], [address] RBC (Bld) [#/Vol] 4.24 10*6/uL Normal 4.2-5.4 [facility] Comment on above: Performed By: #### M 8200.2203 #### [facility] [address] [place], [address] RDW SD 42.4 fl Normal 35.1-43.9 [facility] Comment on above: Performed By: #### M [id number] #### [facility] [address] [place], [address] WBC (Bld) [#/Vol] 10.5 10*3/uL Normal 4.4-11.0 [facility] Comment on above: Performed By: #### M 8200.2203 #### [facility] [address] [place], [address] Eosinophil percentageOrdered By: Bernarda Weber on 08-13-2024 Eosinophils/100 WBC (Bld) 0.5 % 0-5 [facility] Erythrocyte distribution wid th (RBC) [Ratio]Ordered By: Bernarda Weber on 08-13-2024 Erythrocyte distribution width (RBC) [Entitic vol] 42.4 fL 35.1-43.9 [facility] Erythrocyte distribution wid th ratioOrdered By: Bernarda Weber on 08-13-2024 Erythrocyte distribution width (RBC) [Ratio] 12.9 % 11.6-14.6 [facility] HIV - WCHon 08-13-2024 HIV Non-Reactive Normal Nonreactive [facility] Comment on above: Order Comment: Reaso n for Exam: Performed By: #### M 8200.2203 #### [facility] [address] [place], [address] HIV 1+2 Ab+HIV1 p24 Ag IA Ql Ordered By: Bernarda Weber on 08-13-2024 HIV (1&2) Antibody Non-Reactive Nonreactive [facility] Hematocrit Auto (Bld) [Volum e fraction]Ordered By: Bernarda Weber on 08-13-2024 Hematocrit (Bld) [Volume fraction] 38.0 % 37-47 [facility] Hemoglobin measurementOrdere d By: Bernarda Weber on 08-13-2024 Hemoglobin (Bld) [Mass/Vol] 12.7 g/dL 12.0-15.0 [facility] Hepatitis B Surface Antigeno n 08-13-2024 HEP B Surf Ag Non-Reactive Normal Nonreactive [facility] Comment on above: Order Comment: Reaso n for Exam: Performed By: #### M 8200.2203 #### [facility] [address] [place], [address] Hepatitis B surface antigen detectionOrdered By: Bernarda Weber on 08-13-2024 Hepatitis B Surface Antigen Non-Reactive Nonreactive [facility] Hepatitis C Antibodyon 08-13 Hepatitis C AB Non-Reactive [facility] Comment on above: Order Comment: Reaso n for Exam: Result Comment: Non Reactive: < 0.8 Equivocal: >/= 0.8 to < 1.0 Reactive: >/= 1.0 The [facility] requires that a reactive/equivocal HCV antibody result be sent out for confirmation. HCV Quant by PCR testing. Performed By: #### M 8200.2203 #### [facility] [address] [place], [address] Hepatitis C virus antibody a ssayOrdered By: Bernarda Weber on 08-13-2024 Hepatitis C Antibody Non-Reactive Nonreactive [facility] Comment on above: Non Reactive: < 0.8 Equivocal: >/= 0.8 to < 1.0 Reactive: >/= 1.0The CDC requires that a reactive/equivocal HCV antibody result be sent out for confirmation. HCV Quant by PCR testing. Immature granulocytes/100 WB C Auto (Bld)Ordered By: Bernarda Weber on 08-13-2024 Immature granulocytes/100 WBC (Bld) 0.400 % 0.0-0.9 [facility] Comment on above: IG% - Immature Granu locytes (promyelocytes, myelocytes and metamyelocytes) > 1% indicates that a LEFT SHIFT is Present. L509.8000on 08-13-2024 Syphilis Abs Non-Reactive Normal [facility] Comment on above: Order Comment: Reaso n for Exam: Performed By: #### M 8200.2203 #### [facility] [address] [place], [address] Laboratory - Chemistry and C hemistry - challengeon 08-13-2024 Glucose Ql (U) Negative [facility] - Urinalysison Protein Ql (U) Negative [facility] Lymphocytes Auto (Unsp spec) [#/Vol]Ordered By: Bernarda Weber on 08-13-2024 Lymphocytes (Bld) [#/Vol] 3.20 10*3/uL 0.83-4.5 1 [facility] Lymphocytes/100 WBC Auto (Un sp spec)Ordered By: Bernarda Weber on 08-13-2024 Lymphocytes/100 WBC (Bld) 30.4 % 19-41 [facility] MCV (mean corpuscular volume ) determinationOrdered By: Bernarda Weber on 08-13-2024 MCV (RBC) [Entitic vol] 89.6 fL 81-99 [facility] Mean corpuscular hemoglobin (MCH) determinationOrdered By: Bernarda Weber on 08-13-2024 MCH (RBC) [Entitic mass] 30.0 pg 27.0-32.0 [facility] Mean corpuscular hemoglobin concentration (MCHC) determinationOrdered By: Bernarda Weber on 08-13-2024 MCHC (RBC) [Mass/Vol] 33.4 g/dL 32-36 [facility] Mean platelet volume determi nationOrdered By: Bernarda Weber on 08-13-2024 Platelet mean volume (Bld) [Entitic vol] 10.5 fL 6.2-12.0 [facility] Monocyte percentageOrdered B y: Bernarda Weber on 08-13-2024 Monocytes/100 WBC (Bld) 5.1 % 0-10 [facility] Neutrophil percentageOrdered By: Bernarda Weber on 08-13-2024 Neutrophils/100 WBC (Bld) 63.2 % 47-70 [facility] Nucleated red blood cell per centageOrdered By: Bernarda Weber on 08-13-2024 Nucleated RBC/100 WBC (Bld) [Ratio] 0 % 0-5 [facility] Office Visit Reporton 08-13-2024 [facility] Office Visit Report [facility], [address] [place] [address] OFFICE VISIT Date of Service: 08/13/24 MR#: [id number] Acct: [id number] Name: ERIKA PINEDA Rep #: [id number] : 2005 Provider: HERI moore Age/Sex: 18/F [place] [facility] [place] Status: Signed Intake Vital Signs 04/27/24 14:11 07/15/24 08:55 08/13/24 08:33 Height 5 ft 1 in 5 ft 1 in 5 ft 1 in Weight: 162 lb 6 oz BMI 30.7 BP 122/71 H Intake Visit Reasons: 12wk OB Cath Lab Required: No Is patient in pain?: No Allergies No Known Allergies Allergy (Verified 08/13/24 08:33) Medications ???Medication ???Instructions ???Recorded ???Confirmed ???Type PNV 153-FA 400 mcg-om3 35 mg-dha tab PO 07/03/24 08/13/24 History 25 mg-epa 5 mg-fish oil chew tablet ferrous sulfate 137 mg (45 mg 137 mg PO QDAY 07/03/24 08/13/24 History iron) tablet,extended release (Slow Fe) sertraline 50 mg tablet (Zoloft) 50 mg PO QDAY #30 tabs 07/20/24 08/13/24 Rx ondansetron 4 mg disintegrating 4 mg PO Q4H PRN nausea and 08/13/24 08/13/24 Rx tablet vomiting #60 tabs Last Menstrual Period: 05/16/24 Zika: Zika virus screening: Negative : Yes Have you fallen in the past year?: No PFSH PFSH Medical History Irregular menstrual bleeding Seasonal allergies Hx of trauma Surgical History H/O oral surgery Social History adopted: No household members: family current occupational status: employed current occupation: [employer] pets and animals: Yes (Avoid litterbox) pets and animals: cat(s) and dog(s) history of recent travel: No sexually active: Yes Smoking Status: Former smoker quit date: 06/02/24 Electronic Cigarette Use: with nicotine alcohol intake: never substance use type: does not use well-balanced diet: about half the time caffeine: No eating out: 1-3 times/week during the past year weight has: remained stable what type of physical activity do you participate in: none susana/christian: None seatbelt use: always do you feel safe at home: Yes additional social history: BF Richard- [employer] History 1 Elective abortions Hx Para 0 Spontaneous abortions Hx # Term Pregnancies Ectopic pregnancies Hx # Pregnancies Multiple births # of living children HPI 12wk OB Details: ERIKA PINEDA is a 18 year old who presents for routine OB visit. OB Visit MCKENZIE Calculator Estimated Delivery Date Method Current WG Current Estimate 02/20/25 LMP (Certain) 12w 5d Other Estimates 02/24/25 Ultrasound #1 12w 1d Expected Delivery Route/Plan Labor Preferences- CB/BF classes: [] labor support person: [] labor intervention preferences: [] pain management options preferred: [] cut cord/dad catch: [] : [] PP control planned: [] discussed possible routes of delivery and associated risks: [] special requests: [] Specific Issue/Plans Covid status: [] Flu vaccine: [] Tdap vaccine: [] Rhogam: [] LARC form signed: [] Problem list reviewed and updated with the most current plan of care details and appropriate orders placed. Relevant counseling for the gestational age provided. Continue routine care and follow up unless otherwise noted in visit notes/problem list details Initial Weight: Not Recorded Date -???-???-???-???-?? ?-???-???-???-???-? ??-???-???- EGA Weight BP Urine Prot -???-???-???-???-?? ?-???-???-???-???-? ??-???-???- Glucose FHR FuHt Pres Dilation -???-???-???-???-?? ?-???-???-???-???-? ??-???-???- Effaced St Visit Note 07/15/24 -???-???-???-???-?? ?-???-???-???-???-? ??-???-???- 8w 4d 162 lb 127/78 -???-???-???-???-?? ?-???-???-???-???-? ??-???-???- 181 -???-???-???-???-?? ?-???-???-???-???-? ??-???-???- KW- CRL cons with dates. Accepts NIPT 08/13/24 -???-???-???-???-?? ?-???-???-???-???-? ??-???-???- 12w 5d 162 lb 6 oz 122/71 Negative -???-???-???-???-?? ?-???-???-???-???-? ??-???-???- Negative 163 -???-???-???-???-?? ?-???-???-???-???-? ??-???-???- MH-No VB. N ausea persists/zofran sent. Br US confirm FHT. PN labs today ACOG First Trimester First Trimester: Second Trimester Second Trimester: Signs and Symptoms of Labor, Selecting a care provider, Reproductive Life Planning Contreception, Care Planning, Depression/Anxiety and Intimate Partner Violence; Discussed Tobacco Cessation Third Trimester Third Trimester: Pain Management Plans, Labor support person(s), Immediate Larc, Signs and Symptoms of Preeclampsia, Feeding Yes , [place] (more content not included)... Normal [facility] Platelet countOrdered By: Gustavo Weber on 08-13-2024 Platelets (Bld) [#/Vol] 340 10*3/uL 150-450 [facility] RBC Auto (Bld) [#/Vol]Ordere d By: Bernarda Weber on 08-13-2024 RBC (Bld) [#/Vol] 4.24 10*6/uL 4.2-5.4 [facility] Rubella IgGon 08-13-2024 Rubella IgG Reactive Normal Nonreactive [facility] Comment on above: Order Comment: Reaso n for Exam: Result Comment: Anti body Results Interpretation of Immune Status Non Reactive Presumed Non-Immune Equivocal Equivocal Reactive Presumed Immune Performed By: #### M 8200.2203 #### [facility] [address] [place], [place], [id number] Rubella immune status IgGOrd ered By: Bernarda Weber on 08-13-2024 Rubella IgG Antibody Reactive Nonreactive [facility] Comment on above: Antibody Results Int erpretation of Immune Status Non Reactive Presumed Non-Immune Equivocal Equivocal Reactive Presumed Immune Treponema sp Ab Ql (S)Ordere d By: Bernarda Weber on 08-13-2024 Syphilis Total Antibody Non-Reactive [facility] Type AND Screenon 08-13-2024 ABO and Rh group Nom (Bld) Blood group O Rh(D) positive Normal [facility] Comment on above: Order Comment: PN Performed By: #### M 100.3400 #### [facility] [address] [facility]. [place], [place], [id number] White blood cell (WBC) count Ordered By: Bernarda Weber on 08-13-2024 WBC (Bld) [#/Vol] 10.5 10*3/uL 4.4-11.0 [facility] Chlamydia/GC PAULA aptimaon CHLAMY,NUC ACID Negative Normal Negative [facility] Comment on above: Performed By: #### L 501.0900, L501.4405, L501.1400, L501.4100, L501.1105, L100.0500 #### [facility] [address] [place], [place], [id number] GC BY NUC ACID Negative Normal Negative [facility] Comment on above: Result Comment: Perf ormed at: =G - [facility] [address] [id number] [employer] Superintendent: Vi Flores MD, Phone: [phone] Performed By: #### L 501.0900, L501.4405, L501.1400, L501.4100, L501.1105, L100.0500 #### [facility] [address] [place], [place], [id number] Urine Cultureon 07-17-2024 URC Below infection level. Mixed Gram Positive Organisms [place] Count 1000-10,000 MIXC Mixed contaminants. Submit a new specimen if indicated. Normal [facility] Comment on above: Performed By: #### L 501.0900, L501.4405, L501.1400, L501.4100, L501.1105, L100.0500 #### [facility] [address] [place], [place], [id number] [facility] Office Visit Reporton 07-15-2024 [facility] Office Visit Report [facility] [address], [address] [place] [address] OFFICE VISIT Date of Service: 07/15/24 MR#: [id number] Acct: [id number] Name: ERIKA PINEDA DOUGLAS Rep #: [id number] : 2005 Provider: MANINDER Norris ams Age/Sex: 18/F Location: [facility] [place] Status: Signed Intake Vital Signs 04/27/24 14:11 07/15/24 08:55 Height 5 ft 1 in 5 ft 1 in Weight: 162 lb BMI 30.6 BP 127/78 H Intake Visit Reasons: NOB LMP 05/16 Cath Lab Required: No Is patient in pain?: No Allergies No Known Allergies Allergy (Verified 07/15/24 08:56) Medications ???Medication ???Instructions ???Recorded ???Confirmed ???Type PNV 153-FA 400 mcg-om3 35 mg-dha tab PO 07/03/24 07/15/24 History 25 mg-epa 5 mg-fish oil chew tablet ferrous sulfate 137 mg (45 mg 137 mg PO QDAY 07/03/24 07/15/24 History iron) tablet,extended release (Slow Fe) Last Menstrual Period: 05/16/24 Zika: Zika virus screening: Negative : Yes Have you fallen in the past year?: No PFSH PFSH Medical History Irregular menstrual bleeding Seasonal allergies Hx of trauma Surgical History H/O oral surgery Social History adopted: No household members: family service: No current occupational status: employed current occupation: [employer] pets and animals: Yes (Avoid litterbox) pets and animals: cat(s) and dog(s) history of recent travel: No sexually active: Yes Smoking Status: Former smoker quit date: 06/02/24 Electronic Cigarette Use: with nicotine alcohol intake: never substance use type: does not use well-balanced diet: about half the time caffeine: No eating out: 1-3 times/week during the past year weight has: remained stable what type of physical activity do you participate in: none susana/christian: None seatbelt use: always do you feel safe at home: Yes additional social history: BF Richard- [employer] History 1 Elective abortions Hx Para 0 Spontaneous abortions Hx # Term Pregnancies Ectopic pregnancies Hx # Pregnancies Multiple births # of living children HPI NOB LMP 05/16 Details: ERIKA PINEDA is a 18 year old who presents for New OB visit. OB Visit MCKENZIE Calculator Estimated Delivery Date Method Current WG Current Estimate 02/20/25 LMP (Certain) 8w 4d Other Estimates 02/24/25 Ultrasound #1 8w 0d Comments: HIV: Urine Culture: Sequential Screen: NIPT Screen: Estimated Due Date: 02/20/25 Expected Delivery Route/Plan Labor Preferences- CB/BF classes: [] labor support person: [] labor intervention preferences: [] pain management options preferred: [] cut cord/dad catch: [] : [] PP control planned: [] discussed possible routes of delivery and associated risks: [] special requests: [] Specific Issue/Plans Covid status: [] Flu vaccine: [] Tdap vaccine: [] Rhogam: [] LARC form signed: [] Problem list reviewed and updated with the most current plan of care details and appropriate orders placed. Relevant counseling for the gestational age provided. Continue routine care and follow up unless otherwise noted in visit notes/problem list details Initial Weight: Not Recorded Date -???-???-???-???-?? ?-???-???-???-???-? ??-???-???- EGA Weight BP Urine Prot -???-???-???-???-?? ?-???-???-???-???-? ??-???-???- Glucose FHR FuHt Pres Dilation -???-???-???-???-?? ?-???-???-???-???-? ??-???-???- Effaced St Visit Note 07/15/24 -???-???-???-???-?? ?-???-???-???-???-? ??-???-???- 8w 4d 162 lb 127/78 -???-???-???-???-?? ?-???-???-???-???-? ??-???-???- 181 -???-???-???-???-?? ?-???-???-???-???-? ??-???-???- KW- CRL cons with dates. Accepts NIPT Menstrual History Last Menstrual Period: 05/16/24 Reported LMP: definite Normal amount/duration: Yes Frequency in days: 28-36 On hormonal BC at conception: No hCG+: 06/12/24 Antepartum Record Genetic Screening: Congenital Heart Defect: Other, Neural Tube Defect: Other, Hemoglobinopathy Or Carrier: Other, Cystic Fibrosis: Other, Chromosome Abnormality: Other, Jason-Sachs: Other, Hemophilia: Other, Intellectual Disability/Autism: Other, Recurrent Loss/Stillbirth: Other, Other Structural Defect: Other, Other Genetic Disease: Other and Maternal Metabolic Disorder: Other Infection History: Live with someone with TB or Exposed to TB: No, Patient or Partner has history of Genital Herpes: No, Rash or Viral illness since last mentrual period: No, Prior GBS-Infected child: No, History of STD: Yes (chlamydia 2020), HIV Infection: No, History of (more content not included)... Normal [facility] DHEA Sulfateon 05-03-2024 DHEA SULFATE 446.0 ug/dL High 110.0-431.7 [facility] Comment on above: Order Comment: N Performed By: #### M 100.3400 #### [facility] [address] [facility]. [place], [place], [id number] HSV 1 AND 2 IgGon 05-03-2024 HSV 1 IgG < 0.91 Normal 0.00-0.90 [facility] Comment on above: Order Comment: N Result Comment: Nega tive <0.91 Equivocal 0.91 - 1.09 Positive >1.09 Note: Negative indicates no antibodies detected to HSV-1. Equivocal may suggest early infection. If clinically appropriate, retest at later date. Positive indicates antibodies detected to HSV-1. Effective May 25, 2024 the reference interval will be changing to: Non Reactive. Performed By: #### M 100.3400 #### [facility] [address] [place], [place], [id number] [phone] HSV 2 IgG < 0.91 Normal 0.00-0.90 [facility] Comment on above: Order Comment: N Result Comment: Nega tive <0.91 Equivocal 0.91 - 1.09 Positive >1.09 HSV-2 Antibody Interpretation: Current guidelines and recommendations do not recommend routine screening for HSV-2 in asymptomatic individuals, including those that are . A negative antibody result indicates no detectable antibodies to HSV-2 were found. If recent exposure is suspected, retest in 4 to 6 weeks. Equivocal samples should be retested in 4 to 6 weeks. A positive result indicates the presence of detectable IgG antibody to HSV-2. FALSE POSITIVE RESULTS MAY OCCUR. Repeat testing, or testing by a different method, may be indicated in some settings (e.g. patients with low likelihood of HSV infection). If clinically appropriate, retest 4 to 6 weeks later. HSV-2 IgG antibody testing results should be clinically correlated. Effective May 25, 2024 the reference interval will be changing to: Non Reactive. Performed By: #### M 100.3400 #### [facility] [address] [place], [address] PROLACTIN 4465on 05-03-2024 PROLACTIN 8.0 ng/mL Normal 4.8-33.4 [facility] Comment on above: Order Comment: N Performed By: #### M 100.3400 #### [facility] [address] [place], [address] Testosterone Freeon 05-03-20 24 TESTOSTER FREE 2.6 pg/mL Normal 0.0-4.2 [facility] Comment on above: Order Comment: N Performed By: #### M 100.2200 #### [facility] [address] [place], [address] Thyroid Peroxidase ABon 04-19 THYR PEROX AB 16 IU/mL Normal 0-34 [facility] Comment on above: Order Comment: N Result Comment: Perf ormed at: [facility] [id number] [employer] Superintendent: Gagan Nur PhD, Phone: [phone] Performed at: [facility] [id number] [employer] Superintendent: Luan Hoyt MD, Phone: [phone] Performed By: #### M 100.3400 #### [facility] [address] [place], [place], [address] HIV - WCHon 04-27-2024 HIV Non-Reactive Normal Nonreactive [facility] Comment on above: Order Comment: Reaso n for Exam: std exposure Performed By: #### M 100.3400 #### [facility] [address] [place], [place], [address] Hepatitis C Antibodyon 04-27 Hepatitis C AB Non-Reactive Normal Nonreactive [facility] Comment on above: Order Comment: Reaso n for Exam: std exposure Result Comment: Non Reactive: < 0.8 Equivocal: >/= 0.8 to < 1.0 Reactive: >/= 1.0 The [facility] requires that a reactive/equivocal HCV antibody result be sent out for confirmation. HCV Quant by PCR testing. Performed By: #### M 100.3400 #### [facility] [address] [place], [address] L509.8000on 04-27-2024 Syphilis Abs Non-Reactive Normal [facility] Comment on above: Order Comment: Reaso n for Exam: std exposure Performed By: #### M 100.3400 #### [facility] [address] [place], [address] M8200.2203on 04-27-2024 M8200.2203 Pending Chlamydia Trachomatis PCR NEGATIVE for Chlamydia trachomatis N. gonorrhoeae PCR Negative for N. gonorrhoeae Normal [facility] Comment on above: Performed By: #### M 8200.2203 #### [facility] [address] [place], [place], [address] [facility] Office Visit Reporton 04-27-2024 [facility] Office Visit Report [facility] [address], [address] [place] [address] OFFICE VISIT Date of Service: 04/27/24 MR#: [id number] Acct: [id number] Name: ERIKA PINEDA Rep #: [id number] : 2005 Provider: HERI moore Age/Sex: 18/F [place] [facility] [place] Status: Signed Intake Vital Signs 10/04/23 17:37 04/27/24 14:03 04/27/24 14:11 Height 5 ft 1 in 5 ft 1 in 5 ft 1 in Weight: 170 lb 6.4 oz 155 lb BMI 32.1 29.2 BP 109/70 104/70 Respiration 16 Pulse 64 Temp 97.6 F L Pulse Oximetry (%) 98 Intake Visit Reasons: irregular menses Chief Complaint: Irregular menses Cath Lab Required: No Is patient in pain?: No Allergies No Known Allergies Allergy (Verified 04/27/24 14:03) Medications ???Medication ???Instructions ???Recorded ???Confirmed ???Type bupropion HCl 150 mg tablet,12 hr 150 mg PO QAM 04/27/24 04/27/24 History sustained-release (Wellbutrin SR) lithium carbonate 300 mg 300 mg PO QDAY 04/27/24 04/27/24 History tablet,extended release propranolol 20 mg tablet 20 mg PO BID 04/27/24 04/27/24 History Is last menstrual period known: Yes Last Menstrual Period: 04/09/24 Post menopausal: No Patient : No : No [facility] Social History (Updated 04/27/24 @ 14:10 by Gala Zhang) current occupational status: employed current occupation: [employer] sexually active: Yes Smoking Status: Never smoker alcohol intake: never substance use type: does not use what type of physical activity do you participate in: running seatbelt use: always additional social history: [employer] HPI irregular menses Details: ERIKA PINEDA is a 18 year old who presents for irregular menses. Occur every 16-130 days. Length varies 3-9 days. Was on patch and stopped because wouldn't stay in place(Jun 2023). She had nexplanon and had weight gain and spotting most days. She had normal thyroid study, free testosterone, DHEA in December 2022. States that since stopping patch the menses have become more irregular, more acne, dark hair growth on chin. New sexual partner. Not using condoms. Female Reproductive History Last Menstrual Period: 04/09/24 Questions: metorrhagia: No, sexually active: Yes, dyspareunia: No and PCB: No ROS Const Constitutional: Reports system reviewed and no additional complaints, except as documented Eyes Eyes: Reports system reviewed and no additional complaints, except as documented GI GI: Denies abdominal pain or change in bowel habits : Reports as per HPI Exam Const General: cooperative and no acute distress Orientation: oriented x3 HENMT Head: normal to inspection and normocephalic Eyes General: appearance normal, both eyes and all related structures Neck Neck: normal visual inspection Resp Effort Inspection: normal respiratory effort Neuro Cognition: normal cognition Speech: speech normal Psych Appearance: grossly normal Mood: congruent mood Affect: normal affect Speech and Movement: speech and movement normal Attitude: cooperative Judgment: judgment good Coding Level of Care Code Off vis,est,level 3 Diagnoses Irregular menstrual bleeding N92.6 Possible exposure to STD Z20.2 Assessment and Plan Assessment and Plan (1) Irregular menstrual bleeding: Status: Acute Comment: TSH, PCOS labs ordered; will start OCP once resulted (2) Possible exposure to STD: Orders: Orders Testosterone Free Today N92.6 - Irregular menstruation, unspecified DHEA Sulfate Today N92.6 - Irregular menstruation, unspecified PROLACTIN Today N92.6 - Irregular menstruation, unspecified Thyroid Stim Hormone (TSH) Today N92.6 - Irregular menstruation, unspecified T4 Free Direct Today N92.6 - Irregular menstruation, unspecified Thyroid Peroxidase AB Today N92.6 - Irregular menstruation, unspecified HSV 1 2 IgG Today N92.6 - Irregular menstruation, unspecified HIV - [facility] Today N92.6 - Irregular menstruation, unspecified Syphilis Antibodies Today N92.6 - Irregular menstruation, unspecified Hepatitis C Antibody Today N92.6 - Irregular menstruation, unspecified Chlamydia/GC PAULA aptima Today N92.6 - Irregular menstruation, unspecified Plan See labs pending and call results. She is wanting to start oral contraceptives. She agrees to use condoms until labs are resulted then will start OCP RTO prn, annual exam due Aug 2024 04/27/24 1426 Date Jolene Mabrys NEWSPAPER MANAGING EDITOR NEWSPAPER MANAGING EDITOR-C Cosigner Signature: Date (if applicable) CC: Normal [facility] T4 Free Directon 04-27-2024 T4 FREE DIRECT 1.03 ng/dL Normal 0.76-1.46 [facility] Comment on above: Performed By: #### M 100.3400 #### [facility] [address] [place], [place], [address] Thyroid Stim Hormone (TSH)on 04-27-2024 TSH 1.170 uIU/mL Normal 0.358-3.740 [facility] Comment on above: Performed By: #### M 100.3400 #### [facility] [address] [place], [place], [id number] ACUTE TOXICOLOGY PANEL, BLOO Don 09-21-2023 Acetaminophen [Mass/Vol] ug/mL Normal 10.0-30.0 [facility] Comment on above: Performed By: #### D RUBL #### SOWMYA LAWSON ([id number]) [facility] ([facility]) [facility] [place] [address] Ethanol [Mass/Vol] mg/dL Normal <=10 [facility] Comment on above: Performed By: #### D RUBL #### SOWMYA LAWSON ([id number]) [facility] ([facility]) [address] [place] [address] Salicylates [Mass/Vol] mg/dL Normal 4-20 [facility] Comment on above: Performed By: #### D RUBL #### SOWMYA LAWSON ([id number]) [facility]) [facility] [place] [address] Acute Toxicology Panel, Bloo don 09-21-2023 Acetaminophen [Mass/Vol] ug/mL 10. 0 - 30.0 ug/mL [facility] Ethanol [Mass/Vol] mg/dL NINF - 10 mg/dL [facility] Salicylates [Mass/Vol] mg/dL 4 - 20 mg/dL [facility] CBC W Auto Differential pane l (Bld)on 09-21-2023 Basophils (Bld) [#/Vol] 0.05 x10*3/uL Normal 0.00-0.10 [facility] Comment on above: Performed By: #### 5 7021-8 #### SOWMYA LAWSON ([id number]) [facility] ([facility]) [address] [place] [address]98[address] Basophils/100 WBC (Bld) 0.5 % Normal 0.0-2.0 [facility] Comment on above: Performed By: #### 7021-8 #### SOWMYA LAWSON ([id number]) [facility] ([facility]) [address] [place] [address]26 Eosinophils (Bld) [#/Vol] 0.04 x10*3/uL Normal 0.00-0. 70 [facility] Comment on above: Performed By: #### 7021-8 #### SOWMYA LAWSON ([id number]) [facility] ([facility]) [address] [place] [address] 80961 Eosinophils/100 WBC (Bld) 0.4 % Normal 0.0-6.0 [facility] Comment on above: Performed By: #### 5 7021-8 #### SOWMYA LAWSON ([id number]) [facility] ([facility]) [address] [place] [address]196 Erythrocyte distribution width (RBC) [Ratio] 12.4 % Normal 11.5-14.5 [facility] Comment on above: Performed By: #### 7021-8 #### SOWMYA LAWSON ([id number]) [facility] ([facility]) [address] [place] [address]2359 Hematocrit (Bld) [Volume fraction] 44.6 % Normal 36.0-46.0 [facility] Comment on above: Performed By: #### 7021-8 #### SOWMYA LAWSON ([id number]) [facility] ([facility]) [address] [place] [address] 79888 Hemoglobin (Bld) [Mass/Vol] 14.8 g/dL Normal 12.0-16.0 [facility] Comment on above: Performed By: #### 5 7021-8 #### SOWMYA LAWSON ([id number]) [facility] ([facility]) [address] [place] [address] 85212 Immature granulocytes (Bld) [#/Vol] 0.02 x10*3/uL Normal 0.00-0.70 [facility] Comment on above: Performed By: #### 5 7021-8 #### SOWMYA LAWSON ([id number]) [facility] ([facility]) [address] [place] [address]5007 Immature granulocytes/100 WBC (Bld) 0.2 % Normal 0.0-0.9 [facility] Comment on above: Result Comment: Carla ture Granulocyte Count (IG) includes promyelocytes, myelocytes and metamyelocytes but does not include bands. Percent differential counts (%) should be interpreted in the context of the absolute cell counts (cells/UL). Performed By: #### 5 7021-8 #### SOWMYA LAWSON ([id number]) [facility] ([facility]) [address] [place] [address] Lymphocytes (Bld) [#/Vol] 3.33 x10*3/uL Normal 1.20-4. 80 [facility] Comment on above: Performed By: #### 5 7021-8 #### SOWMYA LAWSON ([id number]) [facility] ([facility]) [address] [place] [address] 73261 Lymphocytes/100 WBC (Bld) 30.6 % Normal 13.0-44.0 [facility] Comment on above: Performed By: #### 5 7021-8 #### SOWMYA LAWSON ([id number]) [facility]) [address] [place] [address] 03692 MCH (RBC) [Entitic mass] 29.3 pg Normal 26.0-34.0 [facility] Comment on above: Performed By: #### 5 7021-8 #### SOWMYA LAWSON ([id number]) [facility]) [address] [place] [address] 41152 MCHC (RBC) [Mass/Vol] 33.2 g/dL Normal 32.0-36.0 [facility] Comment on above: Performed By: #### 5 7021-8 #### SOWMYA LAWSON ([id number]) [facility]) [address] [place] [address] 13993 MCV (RBC) [Entitic vol] 88 fL Normal 80-100 [facility] Comment on above: Performed By: #### 5 7021-8 #### SOWMYA LAWSON ([id number]) [facility]) [address] [place] [address] 80059 Monocytes (Bld) [#/Vol] 0.57 x10*3/uL Normal 0.10-1.00 [facility] Comment on above: Performed By: #### 5 7021-8 #### SOWMYA LAWSON ([id number]) [facility]) [address] [place] [address] 82878 Monocytes/100 WBC (Bld) 5.2 % Normal 2.0-10.0 [facility] Comment on above: Performed By: #### 5 7021-8 #### SOWMYA LAWSON ([id number]) [facility]) [address] [place] [address] 62218 Neutrophils (Bld) [#/Vol] 6.89 x10*3/uL Normal 1.20-7. 70 [facility] Comment on above: Result Comment: Perc ent differential counts (%) should be interpreted in the context of the absolute cell counts (cells/uL). Performed By: #### 5 7021-8 #### SOWMYA LAWSON ([id number]) [facility]) [address] [place] [address] 19324 Neutrophils/100 WBC (Bld) 63.1 % Normal 40.0-80.0 [facility] Comment on above: Performed By: #### 5 7021-8 #### SOWMYA LAWSON ([id number]) [facility]) [address] [place] [address] 08577 Nucleated RBC/100 WBC (Bld) [Ratio] 0.0 /100 WBCs Normal 0.0-0.0 [facility] Comment on above: Performed By: #### 5 7021-8 #### SOWMYA LAWSON ([id number]) [facility]) [address] [place] [address] 87778 Platelets (Bld) [#/Vol] 405 x10*3/uL Normal 150-450 [facility] Comment on above: Performed By: #### 5 7021-8 #### SOWMYA LAWSON ([id number]) [facility]) [address] [place] [address] 85689 RBC (Bld) [#/Vol] 5.05 x10*6/uL Normal 4.00-5.20 [facility] Comment on above: Performed By: #### 5 7021-8 #### SOWMYA LAWSON ([id number]) [facility]) [address] [place] [address] 81875 WBC (Bld) [#/Vol] 10.9 x10*3/uL Normal 4.4-11.3 [facility] Comment on above: Performed By: #### 5 7021-8 #### SOWMYA LAWSON ([id number]) [facility]) [address] [place] [address] 94426 Basophils (Bld) [#/Vol] 0.05 10*3/uL [facility] Basophils/100 WBC (Bld) 0.5 % 0.0 - 2.0 % [facility] Eosinophils (Bld) [#/Vol] 0.04 10*3/uL [facility] Eosinophils/100 WBC (Bld) 0.4 % 0.0 - 6.0 % [facility] Erythrocyte distribution width (RBC) [Ratio] 12.4 % 11.5 - 14.5 % [facility] Hematocrit (Bld) [Volume fraction] 44.6 % 36.0 - 46.0 % [facility] Hemoglobin (Bld) [Mass/Vol] 14.8 g/dL 12.0 - 16.0 g/dL [facility] Immature granulocytes (Bld) [#/Vol] 0.02 10*3/uL [facility] Immature granulocytes/100 WBC (Bld) 0.2 % 0.0 - 0.9 % [facility] Comment on above: Immature Granulocyte Count (IG) includes promyelocytes, myelocytes and metamyelocytes but does not include bands. Percent differential counts (%) should be interpreted in the context of the absolute cell counts (cells/UL). Lymphocytes (Bld) [#/Vol] 3.33 10*3/uL [facility] Lymphocytes/100 WBC (Bld) 30.6 % 13.0 - 44. 0 % [facility] MCH (RBC) [Entitic mass] 29.3 pg 26.0 - 34.0 pg [facility] MCHC (RBC) [Mass/Vol] 33.2 g/dL 32.0 - 36.0 g/dL [facility] MCV (RBC) [Entitic vol] 88 fL 80 - 100 fL [facility] Monocytes (Bld) [#/Vol] 0.57 10*3/uL [facility] Monocytes/100 WBC (Bld) 5.2 % 2.0 - 10.0 % [facility] Neutrophils (Bld) [#/Vol] 6.89 10*3/uL [facility] Comment on above: Percent differential counts (%) should be interpreted in the context of the absolute cell counts (cells/uL). Neutrophils/100 WBC (Bld) 63.1 % 40.0 - 80. 0 % [facility] Nucleated RBC/100 WBC (Bld) [Ratio] 0.0 % [facility] Platelets (Bld) [#/Vol] 405 10*3/uL [facility] RBC (Bld) [#/Vol] 5.05 10*6/uL [facility] WBC (Bld) [#/Vol] 10.9 10*3/uL [facility] 09-21-2023 Albumin BCP dye [Mass/Vol] 5.0 g/dL Normal 3.4-5.0 [facility] Comment on above: Performed By: #### 2 4323-8 #### SOWMYA LAWSON ([id number]) [facility]) [address] [place] [address] ALP [Catalytic activity/Vol] 75 U/L Normal 33-110 [facility] Comment on above: Performed By: #### 2 4323-8 #### SOWMYA LAWSON ([id number]) [facility]) [address] [place] [address] 44125 ALT With P-5'-P [Catalytic activity/Vol] 17 U/L Normal 7-45 [facility] Comment on above: Result Comment: Beulah ents treated with Sulfasalazine may generate falsely decreased results for ALT. Performed By: #### 2 4323-8 #### SOWMYA LAWSON ([id number]) [facility]) [address] [place] [address] Anion gap [Moles/Vol] 10 mmol/L Normal 10-20 [facility] Comment on above: Performed By: #### 2 432-8 #### SOWMYA LAWSON ([id number]) [facility]) [address] [place] [address] AST With P-5'-P [Catalytic activity/Vol] 17 U/L Normal 9-39 [facility] Comment on above: Performed By: #### 2 4323-8 #### SOWMYA LAWSON ([id number]) [facility]) [address] [place] [address] Bilirubin [Mass/Vol] 0.3 mg/dL Normal 0.0-1.2 [facility] Comment on above: Performed By: #### 2 4323-8 #### SOWMYA LAWSON ([id number]) [facility]) [address] [place] [address] Calcium [Mass/Vol] 10.1 mg/dL Normal 8.6-10.3 [facility] Comment on above: Performed By: #### 2 4323-8 #### SOWMYA LAWSON ([id number]) [facility]) [facility] [place] [address] Chloride [Moles/Vol] 103 mmol/L Normal 98-107 [facility] Comment on above: Performed By: #### 2 4323-8 #### SOWMYA LAWSON ([id number]) [facility]) [facility] [place] [address] CO2 [Moles/Vol] 27 mmol/L Normal 21-32 [facility] Comment on above: Performed By: #### 2 4323-8 #### SOWMYA LAWSON ([id number]) [facility]) [address] [place] [address] 77475 Creatinine [Mass/Vol] 0.83 mg/dL Normal 0.50-1.05 [facility] Comment on above: Performed By: #### 2 4323-8 #### SOWMYA LAWSON ([id number]) [facility]) [address] [place] [address] 52651 GFR/1.73 sq M.predicted MDRD (S/P/Bld) [Vol rate/Area] mL/min/{1.73_m2} Normal >60 [facility] Comment on above: Result Comment: Calc ulations of estimated GFR are performed using the 2020 CKD-EPI Study Refit equation without the race variable for the IDMS-Traceable creatinine methods. https://jasn.asnjournals.org/content//ASN.20 48162801 Performed By: #### 2 4323-8 #### SOWMYA LAWSON ([id number]) [facility]) [address] [place] [address] 46900 Glucose [Mass/Vol] 85 mg/dL Normal 74-99 [facility] Comment on above: Performed By: #### 2 4323-8 #### SOWMYA LAWSON ([id number]) [facility]) [facility] [place] [address] Potassium [Moles/Vol] 3.5 mmol/L Normal 3.5-5.3 [facility] Comment on above: Performed By: #### 2 4323-8 #### OSWMYA LAWSON ([id number]) [facility]) [address] [place] [address] 68624 Protein [Mass/Vol] 7.5 g/dL Normal 6.4-8.2 [facility] Comment on above: Performed By: #### 2 4323-8 #### SOWMYA LAWSON ([id number]) [facility]) [address] [place] [address] 04270 Sodium [Moles/Vol] 136 mmol/L Normal 136-145 [facility] Comment on above: Performed By: #### 2 4323-8 #### SOWMYA LAWSON ([id number]) [facility]) [address] [place] [address] 23691 Urea nitrogen [Mass/Vol] 15 mg/dL Normal 6-23 [facility] Comment on above: Performed By: #### 2 4323-8 #### SOWMYA LAWSON ([id number]) [facility]) [address] [place] [address] 13463 Albumin BCP dye [Mass/Vol] 5.0 g/dL 3.4 - 5.0 g/dL [facility] ALP [Catalytic activity/Vol] 75 U/L 33 - 110 U/L [facility] ALT With P-5'-P [Catalytic activity/Vol] 17 U/L 7 - 45 U/L [facility] Comment on above: Patients treated wit h Sulfasalazine may generate falsely decreased results for ALT. Anion gap [Moles/Vol] 10 mmol/L 10 - 20 mmol/L [facility] AST With P-5'-P [Catalytic activity/Vol] 17 U/L 9 - 39 U/L [facility] Bilirubin [Mass/Vol] 0.3 mg/dL 0.0 - 1 .2 mg/dL [facility] Calcium [Mass/Vol] 10.1 mg/dL 8.6 - 10. 3 mg/dL [facility] Chloride [Moles/Vol] 103 mmol/L 98 - 10 7 mmol/L [facility] CO2 [Moles/Vol] 27 mmol/L 21 - 32 mmol/L [facility] Creatinine [Mass/Vol] 0.83 mg/dL 0.50 - 1.05 mg/dL [facility] eGFR - PINF [facility] Comment on above: Calculations of nenita mated GFR are performed using the 2020 CKD-EPI Study Refit equation without the race variable for the IDMS-Traceable creatinine methods. https://jasn.asnjournals.org/content//ASN.20 00261899 Glucose [Mass/Vol] 85 mg/dL 74 - 99 mg/dL [facility] Potassium [Moles/Vol] 3.5 mmol/L 3.5 - 5.3 mmol/L [facility] Protein [Mass/Vol] 7.5 g/dL 6.4 - 8.2 g/dL [facility] Sodium [Moles/Vol] 136 mmol/L 136 - 145 mmol/L [facility] Urea nitrogen [Mass/Vol] 15 mg/dL 6 - 23 mg/d L [facility] DRUG SCREEN,URINEon 09-21-19 24 Amphetamines Screen Ql (U) Negative Normal Presumptive Negative [facility] Comment on above: Order Comment: Drug screen results are presumptive and should not be used to assess compliance with prescribed medication. Contact the performing [facility] laboratory to add-on definitive confirmatory testing if clinically indicated. Toxicology screening results are reported qualitatively. The concentration must ???be greater than or equal to the cutoff to be reported as positive. The concentration at which the screening test can detect an individual drug or metabolite varies. The absence of expected drug(s) and/or drug metabolite(s) may indicate non-compliance, inappropriate timing of specimen collection relative to drug administration, poor drug absorption, diluted/adulterated urine, or limitations of testing. For medical purposes only; not valid for forensic use. Interpretive questions should be directed to the laboratory medical directors. Result Comment: CUTO FF LEVEL: 500 NG/ML Cross-reactivity has been reported with high concentrations of the following drugs: buproprion, chloroquine, chlorpromazine, ephedrine, mephentermine, fenfluramine, phentermine, phenylpropanolamine, pseudoephedrine, and propranolol. Performed By: #### D RUG3 #### SOWMYA LAWSON ([id number]) [facility]) [address] [place] [address] Barbiturates Screen Ql (U) Negative Normal Presumptive Negative [facility] Comment on above: Order Comment: Drug screen results are presumptive and should not be used to assess compliance with prescribed medication. Contact the performing [facility] laboratory to add-on definitive confirmatory testing if clinically indicated. Toxicology screening results are reported qualitatively. The concentration must ???be greater than or equal to the cutoff to be reported as positive. The concentration at which the screening test can detect an individual drug or metabolite varies. The absence of expected drug(s) and/or drug metabolite(s) may indicate non-compliance, inappropriate timing of specimen collection relative to drug administration, poor drug absorption, diluted/adulterated urine, or limitations of testing. For medical purposes only; not valid for forensic use. Interpretive questions should be directed to the laboratory medical directors. Result Comment: CUTO FF LEVEL: 200 NG/ML Performed By: #### D RUG3 #### SOWMYA LAWSON ([id number]) [facility]) [address] [place] [address] Benzodiazepines Ql (U) Negative Normal Presu mptive Negative [facility] Comment on above: Order Comment: Drug screen results are presumptive and should not be used to assess compliance with prescribed medication. Contact the performing [facility] laboratory to add-on definitive confirmatory testing if clinically indicated. Toxicology screening results are reported qualitatively. The concentration must ???be greater than or equal to the cutoff to be reported as positive. The concentration at which the screening test can detect an individual drug or metabolite varies. The absence of expected drug(s) and/or drug metabolite(s) may indicate non-compliance, inappropriate timing of specimen collection relative to drug administration, poor drug absorption, diluted/adulterated urine, or limitations of testing. For medical purposes only; not valid for forensic use. Interpretive questions should be directed to the laboratory medical directors. Result Comment: CUTO FF LEVEL: 200 NG/ML Performed By: #### D RUG3 #### SOWMYA LAWSON ([id number]) [facility]) [address] [place] [address] Benzoylecgonine Screen Ql (U) Negative Normal Presumptive Negative [facility] Comment on above: Order Comment: Drug screen results are presumptive and should not be used to assess compliance with prescribed medication. Contact the performing [facility] laboratory to add-on definitive confirmatory testing if clinically indicated. Toxicology screening results are reported qualitatively. The concentration must ???be greater than or equal to the cutoff to be reported as positive. The concentration at which the screening test can detect an individual drug or metabolite varies. The absence of expected drug(s) and/or drug metabolite(s) may indicate non-compliance, inappropriate timing of specimen collection relative to drug administration, poor drug absorption, diluted/adulterated urine, or limitations of testing. For medical purposes only; not valid for forensic use. Interpretive questions should be directed to the laboratory medical directors. Result Comment: CUTO FF LEVEL: 150 NG/ML Performed By: #### D RUG3 #### SOWMYA LAWSON ([id number]) [facility] ([facility]) [address] [place] [address] Cannabinoids Screen Ql (U) Negative Normal Presumptive Negative [facility] Comment on above: Order Comment: Drug screen results are presumptive and should not be used to assess compliance with prescribed medication. Contact the performing [facility] laboratory to add-on definitive confirmatory testing if clinically indicated. Toxicology screening results are reported qualitatively. The concentration must ???be greater than or equal to the cutoff to be reported as positive. The concentration at which the screening test can detect an individual drug or metabolite varies. The absence of expected drug(s) and/or drug metabolite(s) may indicate non-compliance, inappropriate timing of specimen collection relative to drug administration, poor drug absorption, diluted/adulterated urine, or limitations of testing. For medical purposes only; not valid for forensic use. Interpretive questions should be directed to the laboratory medical directors. Result Comment: CUTO FF LEVEL: 50 NG/ML Performed By: #### D RUG3 #### SOWMYA LAWSON ([id number]) [facility] ([facility]) [facility] [place] [address] fentaNYL+Norfentanyl Screen Ql (U) Negative Normal Presumptive Negative [facility] Comment on above: Order Comment: Drug screen results are presumptive and should not be used to assess compliance with prescribed medication. Contact the performing [facility] laboratory to add-on definitive confirmatory testing if clinically indicated. Toxicology screening results are reported qualitatively. The concentration must ???be greater than or equal to the cutoff to be reported as positive. The concentration at which the screening test can detect an individual drug or metabolite varies. The absence of expected drug(s) and/or drug metabolite(s) may indicate non-compliance, inappropriate timing of specimen collection relative to drug administration, poor drug absorption, diluted/adulterated urine, or limitations of testing. For medical purposes only; not valid for forensic use. Interpretive questions should be directed to the laboratory medical directors. Result Comment: CUTO FF LEVEL: 5 NG/ML Performed By: #### D RUG3 #### SOWMYA LAWSON ([id number]) [facility] ([facility]) [address] [place] [address] Opiates Screen Ql (U) Negative Normal Presum ptive Negative [facility] Comment on above: Order Comment: Drug screen results are presumptive and should not be used to assess compliance with prescribed medication. Contact the performing [facility] laboratory to add-on definitive confirmatory testing if clinically indicated. Toxicology screening results are reported qualitatively. The concentration must ???be greater than or equal to the cutoff to be reported as positive. The concentration at which the screening test can detect an individual drug or metabolite varies. The absence of expected drug(s) and/or drug metabolite(s) may indicate non-compliance, inappropriate timing of specimen collection relative to drug administration, poor drug absorption, diluted/adulterated urine, or limitations of testing. For medical purposes only; not valid for forensic use. Interpretive questions should be directed to the laboratory medical directors. Result Comment: CUTO FF LEVEL: 300 NG/ML The opiate screen does not detect fentanyl, meperidine, or tramadol. Oxycodone is not consistently detected (refer to Oxycodone Screen, Urine result). Performed By: #### D RUG3 #### DENG RENNY ([id number]) [facility] ([facility]) [facility] [place] [address] oxyCODONE+oxyMORphone Screen Ql (U) Negative Normal Presumptive Negative [facility] Comment on above: Order Comment: Drug screen results are presumptive and should not be used to assess compliance with prescribed medication. Contact the performing [facility] laboratory to add-on definitive confirmatory testing if clinically indicated. Toxicology screening results are reported qualitatively. The concentration must ???be greater than or equal to the cutoff to be reported as positive. The concentration at which the screening test can detect an individual drug or metabolite varies. The absence of expected drug(s) and/or drug metabolite(s) may indicate non-compliance, inappropriate timing of specimen collection relative to drug administration, poor drug absorption, diluted/adulterated urine, or limitations of testing. For medical purposes only; not valid for forensic use. Interpretive questions should be directed to the laboratory medical directors. Result Comment: CUTO FF LEVEL: 100 NG/ML This test will accurately detect both oxycodone and oxymorphone. Performed By: #### D RUG3 #### SOWMYA LAWSON ([id number]) [facility] ([facility]) [address] [place] [address] Phencyclidine Ql (U) Negative Normal Presump tive Negative [facility] Comment on above: Order Comment: Drug screen results are presumptive and should not be used to assess compliance with prescribed medication. Contact the performing [facility] laboratory to add-on definitive confirmatory testing if clinically indicated. Toxicology screening results are reported qualitatively. The concentration must ???be greater than or equal to the cutoff to be reported as positive. The concentration at which the screening test can detect an individual drug or metabolite varies. The absence of expected drug(s) and/or drug metabolite(s) may indicate non-compliance, inappropriate timing of specimen collection relative to drug administration, poor drug absorption, diluted/adulterated urine, or limitations of testing. For medical purposes only; not valid for forensic use. Interpretive questions should be directed to the laboratory medical directors. Result Comment: CUTO FF LEVEL: 25 NG/ML Cross-reactivity has been reported with dextromethorphan. Performed By: #### D RUG3 #### SOWMYA LAWSON ([id number]) [facility] ([facility] [address] [place] [address] Drug Screen, Urineon 024 Amphetamines Screen Ql (U) Negative Presumptive Negative [facility] Comment on above: CUTOFF LEVEL: 500 NG /ML Cross-reactivity has been reported with high concentrations of the following drugs: buproprion, chloroquine, chlorpromazine, ephedrine, mephentermine, fenfluramine, phentermine, phenylpropanolamine, pseudoephedrine, and propranolol. Barbiturates Screen Ql (U) Negative Presumptive Negative [facility] Comment on above: CUTOFF LEVEL: 200 NG /ML Benzodiazepines Ql (U) Negative Presu mptive Negative [facility] Comment on above: CUTOFF LEVEL: 200 NG /ML Benzoylecgonine Screen Ql (U) Negative Presumptive Negative [facility] Comment on above: CUTOFF LEVEL: 150 NG /ML Cannabinoids Screen Ql (U) Negative Presumptive Negative [facility] Comment on above: CUTOFF LEVEL: 50 NG/ ML fentaNYL+Norfentanyl Screen Ql (U) Negative Presumptive Negative [facility] Comment on above: CUTOFF LEVEL: 5 NG/M L Interpretation and review of laboratory results Normal [facility] Opiates Screen Ql (U) Negative Presum ptive Negative [facility] Comment on above: CUTOFF LEVEL: 300 NG /ML The opiate screen does not detect fentanyl, meperidine, or tramadol. Oxycodone is not consistently detected (refer to Oxycodone Screen, Urine result). oxyCODONE+oxyMORphone Screen Ql (U) Negative Presumptive Negative [facility] Comment on above: CUTOFF LEVEL: 100 NG /ML This test will accurately detect both oxycodone and oxymorphone. Phencyclidine Ql (U) Negative Presump tive Negative [facility] Comment on above: CUTOFF LEVEL: 25 NG/ ML Cross-reactivity has been reported with dextromethorphan. Drug screen results are presumptive and should not be used to assess compliance with prescribed medication. Contact the performing [facility] laboratory to add-on definitive confirmatory testing if clinically indicated. Toxicology screening results are reported qualitatively. The concentration must be greater than or equal to the cutoff to be reported as positive. The concentration at which the screening test can detect an individual drug or metabolite varies. The absence of expected drug(s) and/or drug metabolite(s) may indicate non-compliance, inappropriate timing of specimen collection relative to drug administration, poor drug absorption, diluted/adulterated urine, or limitations of testing. For medical purposes only; not valid for forensic use. Interpretive questions should be directed to the laboratory medical directors. [facility] HCG ( test) cinthia mauricio Ql (U)on 09-21-2023 HCG ( test) Ql (U) Negative Normal NEGATIVE [facility] Comment on above: Performed By: #### 8 [id number] #### SOWMYA LAWSON ([id number]) [facility] ([facility]) [address] [place] [address] HCG ( test) Ql (U) Negative NEGATIVE [facility] Work Phone: Interpretation and review of laboratory results Normal [facility] Work Phone: [facility] Work Phone: No Panel Informationon 09-21 Interpretation and review of laboratory results Normal [facility] Urinalysis complete W Reflex Culture panel (U)on 09-21-2023 Appearance (U) Clear Normal Clear [facility] Comment on above: Performed By: #### 5 8077-9 #### SOWMYA LAWSON ([id number]) [facility] ([facility]) [address] [place] [address] Bilirubin (U) [Mass/Vol] Negative Normal NEGATIVE [facility] Comment on above: Performed By: #### 5 8077-9 #### SOWMYA LAWSON ([id number]) [facility] ([facility]) [address] [place] [address] Color (U) Straw Normal Straw, Yellow [facility] Comment on above: Performed By: #### 5 8077-9 #### SOWMYA LAWSNO ([id number]) [facility] ([facility]) [address] [place] [address] Glucose Auto test strip (U) [Mass/Vol] Negative Normal NEGATIVE [facility] Comment on above: Performed By: #### 5 8077-9 #### SOWMYA LAWSON ([id number]) [facility] ([facility]) [address] [place] [address] Ketones (U) [Mass/Vol] Negative Normal NEGATIVE [facility] Comment on above: Performed By: #### 5 8077-9 #### SOWMYA LAWSON ([id number]) [facility] ([facility]) [address] [place] [address] Leukocyte esterase Auto test strip Ql (U) Negative Normal NEGATIVE [facility] Comment on above: Performed By: #### 5 8077-9 #### SOWMYA LAWSON ([id number]) [facility] ([facility]) [address] [place] [address] Nitrite Auto test strip Ql (U) Negative Normal NEGATIVE [facility] Comment on above: Performed By: #### 5 8077-9 #### SOWMYA LAWSON ([id number]) [facility] ([facility]) [address] [place] [address] pH (U) 7.0 [pH] Normal 5.0, 5.5, 6.0, 6.5, 7.0, 7.5, 8.0 [facility] Comment on above: Performed By: #### 5 8077-9 #### SOWMYA LAWSON ([id number]) [facility] ([facility]) [address] [place] [address] Protein (U) [Mass/Vol] Negative Normal NEGATIVE [facility] Comment on above: Performed By: #### 5 8077-9 #### SOWMYA LAWSON ([id number]) [facility] ([facility]) [address] [place] [address] RBC (U) [#/Vol] Negative Normal NEGATIVE [facility] Comment on above: Performed By: #### 5 8077-9 #### SOWMYA LAWSON ([id number]) [facility] ([facility]) [address] [place] [address] Specific gravity (U) [Rel density] 1.014 Normal 1.005-1.035 [facility] Comment on above: Performed By: #### 5 8077-9 #### SOWMYA LAWSON ([id number]) [facility] ([facility]) [facility] [place] [address] Urobilinogen (U) [Mass/Vol] mg/dL Normal <2.0 [facility] Comment on above: Performed By: #### 5 8077-9 #### SOWMYA LAWSON ([id number]) [facility] ([facility]) [facility] [place] [address] Urinalysis complete W Reflex Culture panel (U)Ordered By: Stephanie Temple on 09-21-2023 Appearance (U) Clear Clear [facility] Bilirubin (U) [Mass/Vol] Negative NEGATIVE [facility] Color (U) Straw Straw, Yellow [facility] Glucose Auto test strip (U) [Mass/Vol] Negative NEGATIVE mg/dL [facility] Interpretation and review of laboratory results Normal [facility] Ketones (U) [Mass/Vol] Negative NEGATIVE mg/d L [facility] Leukocyte esterase Auto test strip Ql (U) Negative NEGATIVE [facility] Nitrite Auto test strip Ql (U) Negative NEGATIVE [facility] pH (U) 7.0 [pH] 5.0, 5.5, 6.0, 6.5, 7.0, 7.5, 8.0 [facility] Protein (U) [Mass/Vol] Negative NEGATIVE mg/d L [facility] RBC (U) [#/Vol] Negative NEGATIVE [facility] Specific gravity (U) [Rel density] 1.014 1.005 - 1.035 [facility] Urobilinogen (U) [Mass/Vol] mg/dL NINF - 2.0 mg/dL [facility] DRUG SCREEN,URINEon 03-04-20 AMPHETAMINE SCREEN,U Canceled Normal [facility] Comment on above: Order Comment: TEST DRUG SCREEN,URINE WAS CANCELLED, 03/04/2023 17:30 discharged. Result Comment: CUTO FF LEVEL: 500 NG/ML Cross-reactivity has been reported with high concentrations of the following drugs: buproprion, chloroquine, chlorpromazine, ephedrine, mephentermine, fenfluramine, phentermine, phenylpropanolamine, pseudoephedrine, and propranolol. Performed By: #### C BCDF #### [place] [address] BARBITURATES SCREEN,U Canceled [facility] Comment on above: Order Comment: TEST DRUG SCREEN,URINE WAS CANCELLED, 03/04/2023 17:30 discharged. Result Comment: CUTO FF LEVEL: 200 NG/ML Performed By: #### C BCDF #### [place] [address] BENZODIAZEPINES SCREEN,U Canceled [facility] Comment on above: Order Comment: TEST DRUG SCREEN,URINE WAS CANCELLED, 03/04/2023 17:30 discharged. Result Comment: CUTO FF LEVEL: 200 NG/ML Performed By: #### C BCDF #### [place] [address] CANNABINOIDS SCREEN,U Canceled [facility] Comment on above: Order Comment: TEST DRUG SCREEN,URINE WAS CANCELLED, 03/04/2023 17:30 discharged. Result Comment: CUTO FF LEVEL: 50 NG/ML Performed By: #### C BCDF #### [place] [address] COCAINE METABOLITE SCREEN,U Canceled [facility] Comment on above: Order Comment: TEST DRUG SCREEN,URINE WAS CANCELLED, 03/04/2023 17:30 discharged. Result Comment: CUTO FF LEVEL: 150 NG/ML Performed By: #### C BCDF #### [place] [address] DRUG SCREEN COMMENT Canceled [facility] Comment on above: Order Comment: TEST DRUG SCREEN,URINE WAS CANCELLED, 03/04/2023 17:30 discharged. Result Comment: Drug screen results are presumptive and should not be used to assess compliance with prescribed medication. Contact the performing [facility] laboratory to add-on definitive confirmatory testing if clinically indicated. . Toxicology screening results are reported qualitatively. The concentration must be greater than or equal to the cutoff to be reported as positive. The concentration at which the screening test can detect an individual drug or metabolite varies. The absence of expected drug(s) and/or drug metabolite(s) may indicate non-compliance, inappropriate timing of specimen collection relative to drug administration, poor drug absorption, diluted/adulterated urine, or limitations of testing. For medical purposes only; not valid for forensic use. . Interpretive questions should be directed to the laboratory medical directors. Performed By: #### C BCDF #### [place] [address] FENTANYL SCREEN,URINE Canceled [facility] Comment on above: Order Comment: TEST DRUG SCREEN,URINE WAS CANCELLED, 03/04/2023 17:30 discharged. Result Comment: CUTO FF LEVEL: 5 NG/ML Performed By: #### C BCDF #### [place] [address] METHADONE SCREEN,U Canceled [facility] Comment on above: Order Comment: TEST DRUG SCREEN,URINE WAS CANCELLED, 03/04/2023 17:30 discharged. Result Comment: CUTO FF LEVEL: 150 NG/ML The metabolite F-axdoc-vaztgocuigwetl (LAAM) is not detected by this method in concentrations that would be found in the urine of patients on LAAM therapy. Performed By: #### C BCDF #### [place] [address] OPIATES SCREEN,U Canceled [facility] Comment on above: Order Comment: TEST DRUG SCREEN,URINE WAS CANCELLED, 03/04/2023 17:30 discharged. Result Comment: CUTO FF LEVEL: 300 NG/ML The opiate screen does not detect fentanyl, meperidine, or tramadol. Oxycodone is not consistently detected (refer to Oxycodone Screen, Urine result). Performed By: #### C BCDF #### [place] [address] OXYCODONE SCREEN,U Canceled [facility] Comment on above: Order Comment: TEST DRUG SCREEN,URINE WAS CANCELLED, 03/04/2023 17:30 discharged. Result Comment: CUTO FF LEVEL: 100 NG/ML This test will accurately detect both oxycodone and oxymorphone. Performed By: #### C BCDF #### [address] [address] PCP SCREEN,U Canceled [facility] Comment on above: Order Comment: TEST DRUG SCREEN,URINE WAS CANCELLED, 03/04/2023 17:30 discharged. Result Comment: CUTO FF LEVEL: 25 NG/ML Cross-reactivity has been reported with dextromethorphan. Performed By: #### C BCDF #### [address] [address] SALICYLATEon 03-04-2023 SALICYLATE 24 mg/dL High 4 - 20 [facility] Comment on above: Performed By: #### S ALIC #### [place] [id number] URINALYSIS WITH CULTURE IF I NDICATEDon 03-04-2023 Appearance (U) Canceled [facility] Comment on above: Order Comment: TEST URINALYSIS WITH CULTURE IF INDICATED WAS CANCELLED, 03/04/2023 17:29 discharged. Performed By: #### U ARFX #### [place] [id number] ASCORBIC ACID Canceled [facility] Comment on above: Order Comment: TEST URINALYSIS WITH CULTURE IF INDICATED WAS CANCELLED, 03/04/2023 17:29 discharged. Result Comment: Conc entrations > = 20 mg/dL of ascorbic acid can be expected to cause strong interference in the reactions testing for glucose, nitrite and blood. It is recommended to discontinue Vitamin C administration and retest in 10 hours. Performed By: #### U ARFX #### [address] [address] Bilirubin Ql (U) Canceled [facility] Comment on above: Order Comment: TEST URINALYSIS WITH CULTURE IF INDICATED WAS CANCELLED, 03/04/2023 17:29 discharged. Performed By: #### U ARFX #### [address] [address] Color (U) Canceled [facility] Comment on above: Order Comment: TEST URINALYSIS WITH CULTURE IF INDICATED WAS CANCELLED, 03/04/2023 17:29 discharged. Performed By: #### U ARFX #### [address] [address] Glucose Ql (U) Canceled [facility] Comment on above: Order Comment: TEST URINALYSIS WITH CULTURE IF INDICATED WAS CANCELLED, 03/04/2023 17:29 discharged. Performed By: #### U ARFX #### [address] [address] Hemoglobin Ql (U) Canceled [facility] Comment on above: Order Comment: TEST URINALYSIS WITH CULTURE IF INDICATED WAS CANCELLED, 03/04/2023 17:29 discharged. Performed By: #### U ARFX #### [address] [address] Ketones Ql (U) Canceled [facility] Comment on above: Order Comment: TEST URINALYSIS WITH CULTURE IF INDICATED WAS CANCELLED, 03/04/2023 17:29 discharged. Performed By: #### U ARFX #### [address] [address] Leukocyte esterase Test strip Ql (U) Canceled [facility] Comment on above: Order Comment: TEST URINALYSIS WITH CULTURE IF INDICATED WAS CANCELLED, 03/04/2023 17:29 discharged. Performed By: #### U ARFX #### [address] [address] Nitrite Ql (U) Canceled [facility] Comment on above: Order Comment: TEST URINALYSIS WITH CULTURE IF INDICATED WAS CANCELLED, 03/04/2023 17:29 discharged. Performed By: #### U ARFX #### [address] [address] pH Canceled [facility] Comment on above: Order Comment: TEST URINALYSIS WITH CULTURE IF INDICATED WAS CANCELLED, 03/04/2023 17:29 discharged. Performed By: #### U ARFX #### [address] [address] Protein Ql (U) Canceled [facility] Comment on above: Order Comment: TEST URINALYSIS WITH CULTURE IF INDICATED WAS CANCELLED, 03/04/2023 17:29 discharged. Performed By: #### U ARFX #### [place] [id number] Specific gravity (U) [Rel density] Canceled Normal [facility] Comment on above: Order Comment: TEST URINALYSIS WITH CULTURE IF INDICATED WAS CANCELLED, 03/04/2023 17:29 discharged. Performed By: #### U ARFX #### [place] [id number] UROBILINOGEN Canceled Normal [facility] Comment on above: Order Comment: TEST URINALYSIS WITH CULTURE IF INDICATED WAS CANCELLED, 03/04/2023 17:29 discharged. Performed By: #### U ARFX #### [place] [address] ACETAMINOPHENon 03-03-2023 Acetaminophen [Mass/Vol] 67.8 ug/mL High 10.0 - 30.0 [facility] Comment on above: Performed By: #### C BCDF #### [place] [address] Acetaminophen [Mass/Vol] 98.7 ug/mL High 10.0 - 30.0 [facility] Comment on above: Performed By: #### C K #### [place] [id number] ALCOHOLon 03-03-2023 Ethanol [Mass/Vol] mg/dL Normal [facility] Comment on above: Result Comment: FOR MEDICAL USE ONLY. . REF VALUES <10 Performed By: #### C K #### [place] [id number] ARTERIAL BLOOD GASon 023 BASE EXCESS-BLOOD -1.8 mmol/L Normal -2.0 - 3.0 [facility] Comment on above: Performed By: #### B LGA2 #### [place] [id number] BICARB, CALCULATED 18.8 mmol/L Low 22.0 - 26.0 [facility] Comment on above: Performed By: #### B LGA2 #### [place] [address] FIO2 21 % Normal [facility] Comment on above: Performed By: #### B LGA2 #### [place] [address] OXY HGB 97.3 % Normal 94.0 - 98.0 [facility] Comment on above: Performed By: #### B LGA2 #### [place] [address] Oxygen (Bld) [Partial pressure] 126 mm[Hg] High 85 - 95 [facility] Comment on above: Performed By: #### B LGA2 #### [place] [address] PATIENT TEMPERATURE 37.0 degrees C Normal [facility] Comment on above: Result Comment: NOTE : PATIENT RESULTS ARE NOT CORRECTED FOR TEMPERATURE. Performed By: #### B LGA2 #### [place] [address] PCO2 22 mmHg Low 38 - 42 [facility] Comment on above: Performed By: #### B LGA2 #### [place] [address] pH (Bld) 7.54 [pH] High 7.38 - 7.42 [facility] Comment on above: Performed By: #### B LGA2 #### [place] [address] SO2 100 % Normal 94 - 100 [facility] Comment on above: Performed By: #### B LGA2 #### [place] [address] BASIC METABOLIC PANELon 02-16 Anion gap [Moles/Vol] 19 mmol/L Normal 10 - 20 [facility] Comment on above: Performed By: #### B MP #### [place] [address] Calcium [Mass/Vol] 9.6 mg/dL Normal 8.6 - 10.3 [facility] Comment on above: Performed By: #### B MP #### [address] [address] Chloride [Moles/Vol] 105 mmol/L Normal 98 - 107 [facility] Comment on above: Performed By: #### B MP #### [address] [address] Creatinine [Mass/Vol] 1.01 mg/dL Normal 0.50 - 1.05 [facility] Comment on above: Performed By: #### B MP #### [address] [address] GFR/1.73 sq M.predicted among non-blacks MDRD (S/P/Bld) [Vol rate/Area] 82 mL/min/{1.73_m2} Normal >90 [facility] Comment on above: Result Comment: CALC ULATIONS OF ESTIMATED GFR ARE PERFORMED USING THE 2020 CKD-EPI STUDY REFIT EQUATION WITHOUT THE RACE VARIABLE FOR THE IDMS-TRACEABLE CREATININE METHODS. https://jasn.asnjournals.org/content///ASN.20 56316251 Performed By: #### B MP #### [address] [address] Glucose [Mass/Vol] 96 mg/dL Normal 74 - 99 [facility] Comment on above: Performed By: #### B MP #### [address] [address] HCO3 (Bld) [Moles/Vol] 18 mmol/L Low 21 - 32 [facility] Comment on above: Performed By: #### B MP #### [address] [address] Potassium [Moles/Vol] 3.2 mmol/L Low 3.5 - 5.3 [facility] Comment on above: Performed By: #### B MP #### [address] [address] Sodium [Moles/Vol] 139 mmol/L Normal 136 - 145 [facility] Comment on above: Performed By: #### B MP #### [address] [address] Urea nitrogen [Mass/Vol] 15 mg/dL Normal 6 - 23 [facility] Comment on above: Performed By: #### B MP #### [address] [address] [address] CBC AND DIFFERENTIALon 03-03 % AUTOMATED IMMATURE GRAN 0.3 % Normal 0.0 - 0.9 [facility] Comment on above: Result Comment: Carla ture Granulocyte Count (IG) includes promyelocytes, myelocytes and metamyelocytes but does not include bands. Percent differential counts (%) should be interpreted in the context of the absolute cell counts (cells/L). Performed By: #### C BCDF #### [place] [id number] Basophils (Bld) [#/Vol] 0.04 10*3/uL Normal 0.00 - 0.1 0 [facility] Comment on above: Performed By: #### C BCDF #### [place] [id number] Basophils/100 WBC (Bld) 0.3 % Normal 0.0 - 2.0 [facility] Comment on above: Performed By: #### C BCDF #### [address] [address] Eosinophils (Bld) [#/Vol] 0.05 10*3/uL Normal 0.00 - 0 .70 [facility] Comment on above: Performed By: #### C BCDF #### [address] [address] Eosinophils/100 WBC (Bld) 0.4 % Normal 0.0 - 6.0 [facility] Comment on above: Performed By: #### C BCDF #### [address] [address] Erythrocyte distribution width (RBC) [Ratio] 12.3 % Normal 11.5 - 14.5 [facility] Comment on above: Performed By: #### C BCDF #### [address] [address] Hematocrit (Bld) [Volume fraction] 46.7 % High 36.0 - 46.0 [facility] Comment on above: Performed By: #### C BCDF #### [address] [address] Hemoglobin (Bld) [Mass/Vol] 15.4 g/dL Normal 12.0 - 16.0 [facility] Comment on above: Performed By: #### C BCDF #### [address] [address] Lymphocytes (Bld) [#/Vol] 4.76 10*3/uL Normal 1.20 - 4 .80 [facility] Comment on above: Performed By: #### C BCDF #### [address] [address] Lymphocytes/100 WBC (Bld) 33.7 % Normal 13.0 - 44. 0 [facility] Comment on above: Performed By: #### C BCDF #### [address] [address] MCHC (RBC) [Mass/Vol] 33.0 g/dL Normal 32.0 - 36.0 [facility] Comment on above: Performed By: #### C BCDF #### [address] [address] MCV (RBC) [Entitic vol] 90 fL Normal 80 - 100 [facility] Comment on above: Performed By: #### C BCDF #### [address] [address] Monocytes (Bld) [#/Vol] 1.17 10*3/uL High 0.10 - 1.0 0 [facility] Comment on above: Performed By: #### C BCDF #### [address] [address] Monocytes/100 WBC (Bld) 8.3 % Normal 2.0 - 10.0 [facility] Comment on above: Performed By: #### C BCDF #### [address] [address] Neutrophils (Bld) [#/Vol] 8.08 10*3/uL High 1.20 - 7 .70 [facility] Comment on above: Result Comment: Perc ent differential counts (%) should be interpreted in the context of the absolute cell counts (cells/L). Performed By: #### C BCDF #### [address] [address] Neutrophils/100 WBC (Bld) 57.0 % Normal 40.0 - 80. 0 [facility] Comment on above: Performed By: #### C BCDF #### [address] [address] Platelets (Bld) [#/Vol] 444 10*3/uL Normal 150 - 450 [facility] Comment on above: Performed By: #### C BCDF #### [address] [address] RBC 5.20 x10E12/L Normal 4.00 - 5.20 [facility] Comment on above: Performed By: #### C BCDF #### [address] [address] WBC (Bld) [#/Vol] 14.1 10*3/uL High 4.4 - 11.3 [facility] Comment on above: Performed By: #### C BCDF #### [address] [address] CREATINE KINASEon 03-03-2023 CK [Catalytic activity/Vol] 91 U/L Normal 0 - 215 [facility] Comment on above: Performed By: #### C K #### [address] [address] Clinical Event Note-Poison C ontrolon 03-03-2023 Clinical Event Note-Poison Control Clinical Event: Clinical Event Note: TopicPoison Control Details 1650 Call to Poison Control to report ingestion of medication, information given, they state to do a CBC, CMP, Urine Drug, Urine Preg, tylenol level to be repeated at 1855 which would be the 4 hour gregoria from medication ingestion, also state to do blood gases to assess for acidosis, information given to Dr. Kulkarni Electronic Signatures: Alley Singh (SUPV) (Signed 03-Mar-2023 17:03) Authored: Clinical Event Note Last Updated: 03-Mar-2023 17:03 by Alley Singh (SUPV) Normal [facility] HCG,BETA-QUANTITATIVEon 02-16 HCG,BETA-QUANTITATIVE <2 Normal [facility] Comment on above: Result Comment: . Total HCG measurement is performed using the [employer] Access Immunoassay which detects intact HCG and free beta HCG subunit. . This test is not indicated for use as a tumor marker. HCG testing is performed using a different test methodology at [facility] than other [facility]. Direct result comparison should only be made within the same method. REF VALUES NON FEMALE <5 MALES <5 Performed By: #### C BCDF #### [place] [address] HEPATIC FUNCTION PANELon Albumin [Mass/Vol] 4.9 g/dL Normal 3.4 - 5.0 Loc[facility] Comment on above: Performed By: #### C K #### [address] [address] ALP [Catalytic activity/Vol] 65 U/L Normal 33 - 110 [facility] Comment on above: Performed By: #### C K #### [address] [address] ALT [Catalytic activity/Vol] 14 U/L Normal 7 - 45 [facility] Comment on above: Result Comment: Beulah ents treated with Sulfasalazine may generate falsely decreased results for ALT. Performed By: #### C K #### [address] [address] AST [Catalytic activity/Vol] 15 U/L Normal 9 - 39 [facility] Comment on above: Performed By: #### C K #### [address] [address] Bilirubin [Mass/Vol] 0.5 mg/dL Normal 0.0 - 1.2 [facility] Comment on above: Performed By: #### C K #### [address] [address] Bilirubin.indirect [Mass/Vol] 0.1 mg/dL Normal 0.0 - 0.3 [facility] Comment on above: Performed By: #### C K #### [address] [address] Protein [Mass/Vol] 7.3 g/dL Normal 6.4 - 8.2 [facility] Comment on above: Performed By: #### C K #### [address] [address] Provider Note - ED Care Syed panon 03-03-2023 Provider Note - ED Care Transition ED Care Transition: Chart Review: ED NOTES ED NOTES: Patient appears well and nontoxic. Vital signs within normal limits. Patient signed out by daytime physician pending repeat acetaminophen and salicylate levels. 4-hour acetaminophen level 68 which is decreased from previous. ASA level remains the same at 28. Case discussed again with poison control who advised no further acetaminophen levels and no indication for N-acetylcysteine. Advised on to downtrending ASA levels by 2 hours to be medically cleared. Next ASA level to be drawn at 5. This level is trending downward. Another repeat performed at 2245 is also trending downward. After another discussion with poison control she is considered medically cleared. Evaluated by crisis counselor from [facility] and the decision was made to admit for inpatient psychiatric treatment. Patient was somewhat resistant to this as she felt she could be safely monitored at home however I disagree with this given her significant attempt at taking her own life. Patient was accepted by Dr. [facility] at [facility] and transferred in stable condition. CLINICAL IMPRESSION Diagnosis/Annotatio n: ED Dx Name:Suicide attempt by substance overdose Code:T65.92XA Disposition: transferred ATTESTATION CRITICAL CARE TIME Is this a critically ill patient: yes Billing Provider Critical Care Time (mins): 50 Primary Critical Care Issue/Treatment (See MDM/ED Course/Tx Plan for greater detail): -- For the nature of the critical condition and treatment, this documentation has been prepared by the attending physician/JACINTO/eugene ng provider of these critical care services. and -- This patient is exhibiting severe psychiatric manifestations such as suicidality, homicidality, extreme psychosis, or combativeness, and is requiring intensive diagnostic and treatment interventions which may include sedation, antipsychotic agents, restraint, and discussions with family/companions due to clinical incompetence and with psychiatric personnel. Please see MDM/ED Course/Treatment Plan for greater detail. Additional Critical Care Provided: direct patient care (not related to procedure), additional history taking, interpretation of diagnostic studies, documentation, consultation with other physicians and consult w/ pt's family directly relating to pts condition Electronic Signatures: Enrique Mello) (Signed 04-Mar-2023 03:04) Authored: ED Notes, Clinical Impression, Attestation, Chart Review, Scores Last Updated: 04-Mar-2023 03:04 by Enrique Mello) [facility] Provider Note - ED v3on 02-16 Provider Note - ED v3 Provider Note: Results/Vital Signs: Pediatric Clinical Scoring (CLEMENT) is no recent CLEMENT charted on this account Chart Review: ED NOTES ED NOTES: Source of Information: Patient. EMR was reviewed for previous records. The EMS transfer sheet was not available during my initial assessment of the patient. ---- ---- HPI: Drug overdose, depression, suicidal ideation. This 17-year-old white female presents to the ED via EMS with police present due to suicide attempt. The patient states that 2:55 PM she took 2 handfuls of equate headache that has Tylenol, aspirin and caffeine in it. She states that she is nauseated after taking them but denies any vomiting. She contacted the suicide hotline who then contacted police who came to the patient home. The paramedics presented with a bottle of medication that states he has 200 tablets and was missing 72 tablets. ---- ---- PMH: Bipolar affective disorder, depression, anxiety PSH: Oral surgery Social Hx: The patient denies any use of tobacco alcohol. She does admit to smoking marijuana Fam: MEDS: Previously was on Wellbutrin which she stopped taking 3 weeks ago. ALLERGIES: NKDA ---- ---- PHYSICAL EXAM: General: Patient alert, awake, oriented X3, appears to anxious and tearful but cooperative Skin: Warm. Dry. Intact. No rash. Eyes: PEARTLA, EOMIs intact, sclera white, conjunctiva clear HEENT: Atraumatic. Normo-cephalic. Oral and nasal mucosa pink and moist. Neck: Supple without meningismus, no lymphadenopathy. CV: Regular rate and rhythm without murmurs, heaves, lifts or thrills.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 results are calculated without a race factor using the 2020 CKD-EPI equation. Careful clinical correlation is recommended, particularly when comparing to results calculated using previous equations. The CKD-EPI equation is less accurate in patients with extremes of muscle mass, extra-renal metabolism of creatinine, excessive creatinine ingestion, or following therapy that affects renal tubular secretion. Glucose [Mass/Vol] 74 mg/dL Normal 55-110 [facility] Potassium [Moles/Vol] 4.0 mmol/L Normal 3.5-5.0 [facility] Protein [Mass/Vol] 7.3 g/dL Normal 6.4-8.3 [facility] Sodium [Moles/Vol] 136 mmol/L Normal 132-146 [facility] Urea nitrogen [Mass/Vol] 15 mg/dL Normal 6-20 [facility] Valproic Acid /Depakene Leve birgit 07-09-2022 Valproic Acid 3 mcg/mL Low 50-100 [facility] Hgb A1Con 07-06-2022 HbA1c (Bld) [Mass fraction] 5.2 % Normal 4.0-5.6 [facility] Lipid Panelon 07-06-2022 Cholesterol [Mass/Vol] 173 mg/dL Normal 0-199 [facility] Cholesterol in HDL [Mass/Vol] 50 mg/dL Normal >40 [facility] Cholesterol in LDL [Mass/Vol] 104 mg/dL High 0-99 [facility] Triglyceride [Mass/Vol] 96 mg/dL Normal 0-149 [facility] VLDL Cholesterol (Calculated) 19 mg/dL Normal [facility] Chlamydia trachomatis rRNA d etection by probe and target amplification methodon 04-26-2022 C. trachomatis rRNA PAULA+probe Ql (Unsp spec) Negative Negative [facility] Work Phone: Laboratory - Microbiology an d Antimicrobial susceptibilityon 04-26-2022 N. gonorrhoeae DNA PAULA+probe Ql (Unsp spec) Negative Negative [facility] Work Phone: Comment on above: Performed at: =[employer] [place] [id number] Director: Vi Flores MD, Phone: [phone] Chlamydia trachomatis rRNA d etection by probe and target amplification methodon 03-21-2022 C. trachomatis rRNA PAULA+probe Ql (Unsp spec) Negative Negative [facility] Work Phone: Laboratory - Microbiology an d Antimicrobial susceptibilityon 03-21-2022 N. gonorrhoeae DNA PAULA+probe Ql (Unsp spec) Negative Negative [facility] Work Phone: Comment on above: Performed at: =[employer] [place] [id number] Director: Vi Flores MD, Phone: [phone] No Panel Informationon 03-21 POC Bacterial Vaginitis (Rapid) Negative [facility] Work Phone: POC Trichomonas (Rapid) Negative [facility] Work Phone: Gram stain for investigation of transfusion reaction Microscopic observation Gram stain Nom (Unsp spec) [facility] Work Phone: Thin prep Papanicolaou smear with manual screening Genital Culture G. vaginalis (Presumptive) [facility] Work Phone: Vital Signs Date Time Vital Sign Value Performing Clinician Facility 02-17-2025 08:41-0400 Body height 154.[address] Jorge Bearden MD Work Phone: 5(319)612-172376 [place] [address] 02-17-2025 08:41-0400 Diastolic blood pressure 82 mm[Hg] Dr. Jorge Bearden MD Work Phone: 7(909)067-705776 [place] [address] 02-17-2025 08:41-0400 Systolic blood pressure 121 mm[Hg] Dr. Jorge Bearden MD Work Phone: 1(993)912-053176 [place] [address] 02-17-2025 08:35-0400 Body mass index (BMI) [Ratio] 35.8 kg/m2 Dr. Jorge Bearden MD Work Phone: 1(354)140-329576 [place] [address] 02-17-2025 08:35-0400 Body weight 85.[address] Jorge Bearden MD Work Phone: 7(844)642-599976 [place] [address] 02-12-2025 13:31-0400 Body height 154.[address] Jorge Bearden MD Work Phone: 2(654)673-558976 [place] [address] 02-12-2025 13:31-0400 Body mass index (BMI) [Ratio] 35.4 kg/m2 Dr. Jorge Bearden MD Work Phone: 8(448)283-805976 [place] [address] 02-12-2025 13:31-0400 Body weight 84.[address] Jorge Bearden MD Work Phone: 3(097)819-288576 [place] [address] 02-12-2025 13:31-0400 Diastolic blood pressure 76 mm[Hg] Dr. Jorge Bearden MD Work Phone: 3(998)300-973776 [place] [address] 02-12-2025 13:31-0400 Systolic blood pressure 112 mm[Hg] Dr. Jorge Bearden MD Work Phone: 8(610)592-960376 [place] [address] 02-05-2025 11:38-0400 Body height 154.[address] Jorge Bearden MD Work Phone: 5(151)581-891576 [place] [address] 02-05-2025 11:38-0400 Body mass index (BMI) [Ratio] 35.5 kg/m2 Dr. Jorge Bearden MD Work Phone: 9(360)598-107876 [place] [address] 02-05-2025 11:38-0400 Body weight 85.[address] Jorge Bearden MD Work Phone: 6(136)988-234476 [place] [address] 02-05-2025 11:38-0400 Diastolic blood pressure 83 mm[Hg] Dr. Jorge Bearden MD Work Phone: 4(168)522-883276 [place] [address] 02-05-2025 11:38-0400 Systolic blood pressure 126 mm[Hg] Dr. Jorge Bearden MD Work Phone: 7(586)277-303576 [place] [address] 01-25-2025 10:45-0400 Body height 154.[address] Jorge Bearden MD Work Phone: 1(408)104-294976 [place] [address] 01-25-2025 10:43-0400 Body mass index (BMI) [Ratio] 35.4 kg/m2 Dr. Jorge Bearden MD Work Phone: 6(761)106-808276 [place] [address] 01-25-2025 10:43-0400 Body weight 84.[address] Jorge Bearden MD Work Phone: 5(644)177-176676 [place] [address] 01-25-2025 10:43-0400 Diastolic blood pressure 62 mm[Hg] Dr. Jorge Bearden MD Work Phone: 0(338)748-137776 [place] [address] 01-25-2025 10:43-0400 Systolic blood pressure 106 mm[Hg] Dr. Jorge Bearden MD Work Phone: 9(929)438-634876 [place] [address] 01-14-2025 10:44-0400 Body height 154.[address] Jorge Bearden MD Work Phone: 3(158)704-362976 [place] [address] 01-14-2025 10:44-0400 Body mass index (BMI) [Ratio] 34.9 kg/m2 Dr. Jorge Bearden MD Work Phone: 3(476)770-468076 [place] [address] 01-14-2025 10:44-0400 Body weight 83.[address] Jorge Bearden MD Work Phone: 8(448)633-317976 [place] [address] 01-14-2025 10:44-0400 Diastolic blood pressure 74 mm[Hg] Dr. Jorge Bearden MD Work Phone: 1(044)563-018876 [place] [address] 01-14-2025 10:44-0400 Systolic blood pressure 108 mm[Hg] Dr. Jorge Bearden MD Work Phone: 0(734)405-899876 [place] [address] 12-28-2024 14:02-0400 Body mass index (BMI) [Ratio] 34 kg/m2 Dr. Jorge Bearden MD Work Phone: 1(466)927-171776 [place] [address] 12-28-2024 14:02-0400 Body weight 81.[address] Jorge Bearden MD Work Phone: 7(594)914-268076 [place] [address] 12-28-2024 14:02-0400 Diastolic blood pressure 60 mm[Hg] Dr. Jorge Bearden MD Work Phone: 2(996)216-843976 [place] [address] 12-28-2024 14:02-0400 Systolic blood pressure 94 mm[Hg] Dr. Jorge Bearden MD Work Phone: 6(225)882-418176 [place] [address] 12-20-2024 20:19-0400 Body temperature 98.1 [degF] Dr. Jorge Bearden MD Work Phone: 2(395)494-539776 [place] [address] 12-20-2024 20:19-0400 Diastolic blood pressure 69 mm[Hg] Dr. Jorge Bearden MD Work Phone: 0(762)932-718676 [place] [address] 12-20-2024 20:19-0400 Heart rate 90 /min Dr. Jorge Bearden MD Work Phone: 1(325)854-509376 [place] [address] 12-20-2024 20:19-0400 Respiratory rate 16 /min Dr. Jorge Bearden MD Work Phone: 4(203)186-933376 [place] [address] 12-20-2024 20:19-0400 SaO2% (BldA) [Mass fraction] 98 % Dr. Jorge Bearden MD Work Phone: 3(070)347-886776 [place] [address] 12-20-2024 20:19-0400 Systolic blood pressure 122 mm[Hg] Dr. Jorge Bearden MD Work Phone: 6(915)859-595276 [place] [address] 12-20-2024 17:13-0400 Body mass index (BMI) [Ratio] 34 kg/m2 Dr. Jorge Bearden MD Work Phone: 9(508)691-932676 [place] [address] 12-20-2024 17:13-0400 Body weight 81.[address] Jorge Bearden MD Work Phone: 8(055)285-578276 [place] [address] 12-18-2024 09:39-0400 Body mass index (BMI) [Ratio] 33.5 kg/m2 Dr. Jorge Bearden MD Work Phone: 4(556)433-295476 [place] [address] 12-18-2024 09:39-0400 Body weight 80.[address] Jorge Bearden MD Work Phone: 0(334)399-381876 [place] [address] 12-18-2024 09:39-0400 Diastolic blood pressure 71 mm[Hg] Dr. Jorge Bearden MD Work Phone: 2(555)579-555276 [place] [address] 12-18-2024 09:39-0400 Systolic blood pressure 107 mm[Hg] Dr. Jorge Bearden MD Work Phone: 6(558)051-292376 [place] [address] 12-01-2024 19:22-0400 Body temperature 98.1 [degF] Dr. Jorge Bearden MD Work Phone: 5(656)628-380176 [place] [address] 12-01-2024 19:22-0400 Respiratory rate 16 /min Dr. Jorge Bearden MD Work Phone: 5(976)308-014076 [place] [address] 12-01-2024 19:20-0400 Diastolic blood pressure 69 mm[Hg] Dr. Jorge Bearden MD Work Phone: 4(368)034-185376 [place] [address] 12-01-2024 19:20-0400 Heart rate 90 /min Dr. Jorge Bearden MD Work Phone: 7(503)085-589476 [place] [address] 12-01-2024 19:20-0400 Systolic blood pressure 109 mm[Hg] Dr. Jorge Bearden MD Work Phone: 9(687)551-447276 [place] [address] 12-01-2024 17:58-0400 Body height 154.[address] Jorge Bearden MD Work Phone: 5(528)160-700076 [place] [address] 12-01-2024 17:58-0400 Body mass index (BMI) [Ratio] 33 kg/m2 Dr. Jorge Bearden MD Work Phone: 6(653)587-661976 [place] [address] 12-01-2024 17:58-0400 Body weight 79.[address] Jorge Bearden MD Work Phone: 1(581)553-227176 [place] [address] 11-30-2024 10:17-0400 Body mass index (BMI) [Ratio] 32.6 kg/m2 Dr. Jorge Bearden MD Work Phone: 9(450)160-750276 [place] [address] 11-30-2024 10:17-0400 Body weight 78.[address] Jorge Bearden MD Work Phone: 9(509)379-365976 [place] [address] 11-30-2024 10:17-0400 Diastolic blood pressure 68 mm[Hg] Dr. Jorge Bearden MD Work Phone: 6(381)304-262876 [place] [address] 11-30-2024 10:17-0400 Systolic blood pressure 101 mm[Hg] Dr. Jorge Bearden MD Work Phone: 7(187)480-551076 [place] [address] 11-19-2024 11:08-0400 Body mass index (BMI) [Ratio] 32.8 kg/m2 Dr. Jorge Bearden MD Work Phone: 9(852)684-572476 [place] [address] 11-19-2024 11:08-0400 Body weight 78.[address] Jorge Bearden MD Work Phone: 4(662)062-742976 [place] [address] 11-19-2024 11:08-0400 Diastolic blood pressure 65 mm[Hg] Dr. Jorge Bearden MD Work Phone: 0(799)672-796876 [place] [address] 11-19-2024 11:08-0400 Systolic blood pressure 99 mm[Hg] Dr. Jorge Bearden MD Work Phone: [facility] 11-09-2024 11:20-0400 Body mass index (BMI) [Ratio] 32.2 kg/m2 Dr. Jorge Bearden MD Work Phone: [facility] 11-09-2024 11:20-0400 Body weight 77.[address] Jorge Bearden MD Work Phone: [facility] 11-09-2024 11:20-0400 Diastolic blood pressure 63 mm[Hg] Dr. Jorge Bearden MD Work Phone: [facility] 11-09-2024 11:20-0400 Systolic blood pressure 101 mm[Hg] Dr. Jorge Bearden MD Work Phone: [facility] 10-11-2024 11:08-0500 Body temperature 99.61 [degF] Iker Morrow APRN.OFFSET L[employer]APHIC PRESS OPERATOR Work Phone: [facility] 10-11-2024 11:08-0500 Body weight 75.7 kg Iker Morrow APRN.OFFSET L[employer]OGRAPHIC PRESS OPERATOR Work Phone: [facility] 10-11-2024 11:08-0500 Diastolic blood pressure 68 mm[Hg] Iker Morrow APRN.OFFSET L[employer]OGRAPHIC PRESS OPERATOR Work Phone: [facility] 10-11-2024 11:08-0500 Heart rate 107 /min Iker Morrwo APRN.OFFSET L[employer]APHIC PRESS OPERATOR Work Phone: [facility] 10-11-2024 11:08-0500 Respiratory rate 20 /min Iker Morrow APRN.OFFSET L[employer]OGRAPHIC PRESS OPERATOR Work Phone: [facility] 10-11-2024 11:08-0500 SaO2% (BldA) [Mass fraction] 100 % Iker Morrow APRN.OFFSET L[employer]OGRAPHIC PRESS OPERATOR Work Phone: [facility] 10-11-2024 11:08-0500 Systolic blood pressure 116 mm[Hg] Iker Morrow APRN.OFFSET LITHOGRAPHIC PRESS OPERATOR Work Phone: [facility] 10-08-2024 09:34-0500 Body mass index (BMI) [Ratio] 31.8 kg/m2 Dr. Jorge Bearden MD Work Phone: 2(419)061-640176 [place] [address] 10-08-2024 09:34-0500 Body weight 76.[address] Jorge Bearden MD Work Phone: 7(495)986-135776 [facility] [place] [address] 10-08-2024 09:34-0500 Diastolic blood pressure 55 mm[Hg] Dr. Jorge Bearden MD Work Phone: 7(266)855-647076 [place] [address] 10-08-2024 09:34-0500 Systolic blood pressure 107 mm[Hg] Dr. Jorge Bearden MD Work Phone: 6(775)411-225376 [place] [address] 08-24-2024 10:42-0500 Body mass index (BMI) [Ratio] 30.4 kg/m2 Dr. Jorge Bearden MD Work Phone: 2(883)350-466876 [place] [address] 08-24-2024 10:42-0500 Body weight 73.[address] Jorge Bearden MD Work Phone: 9(154)870-937576 [place] [address] 08-24-2024 10:42-0500 Diastolic blood pressure 72 mm[Hg] Dr. Jorge Bearden MD Work Phone: 8(741)891-006276 [place] [address] 08-24-2024 10:42-0500 Systolic blood pressure 116 mm[Hg] Dr. Jorge Bearden MD Work Phone: 9(831)477-499876 [place] [address] 08-24-2024 10:40-0500 Body mass index (BMI) [Ratio] 30.8 kg/m2 Dr. Jorge Bearden MD Work Phone: 5(349)878-099176 [place] [address] 08-24-2024 10:40-0500 Body weight 73.[address] Jorge Bearden MD Work Phone: 5(156)501-392376 [place] [address] 08-24-2024 10:40-0500 Diastolic blood pressure 76 mm[Hg] Dr. Jorge Bearden MD Work Phone: 5(846)440-792476 [place] [address] 08-24-2024 10:40-0500 Systolic blood pressure 112 mm[Hg] Dr. Jorge Bearden MD Work Phone: 2(364)430-394576 [place] [address] 2024 13:32-0500 Body temperature 98.2 [degF] Dr. Jorge Bearden MD Work Phone: 4(543)771-051376 [place] [address] 2024 13:32-0500 Diastolic blood pressure 58 mm[Hg] Dr. Jorge Bearden MD Work Phone: 8(655)927-589076 [place] [address] 2024 13:32-0500 Heart rate 78 /min Dr. Jorge Bearden MD Work Phone: 7(583)864-877776 [place] [address] 2024 13:32-0500 Respiratory rate 16 /min Dr. Jorge Bearden MD Work Phone: 0(458)639-855976 [place] [address] 2024 13:32-0500 SaO2% (BldA) [Mass fraction] 98 % Dr. Jorge Bearden MD Work Phone: 2(666)709-164576 [place] [address] 2024 13:32-0500 Systolic blood pressure 134 mm[Hg] Dr. Jorge Bearden MD Work Phone: 4(705)584-308376 [place] [address] 2024 12:27-0500 Body mass index (BMI) [Ratio] 30.4 kg/m2 Dr. Jorge Bearden MD Work Phone: 8(869)192-275276 [place] [address] 2024 12:27-0500 Body weight 73.[address] Jorge Bearden MD Work Phone: 2(351)154-097076 [place] [address] 08-13-2024 08:33-0500 Body mass index (BMI) [Ratio] 30.7 kg/m2 Dr. Jorge Bearden MD Work Phone: 9(098)136-702076 [place] [address] 08-13-2024 08:33-0500 Body weight 73.[address] Jorge Bearden MD Work Phone: 4(451)437-831376 [place] [address] 08-13-2024 08:33-0500 Diastolic blood pressure 71 mm[Hg] Dr. Jorge Bearden MD Work Phone: 3(307)005-913676 [place] [address] 08-13-2024 08:33-0500 Systolic blood pressure 122 mm[Hg] Dr. Jorge Bearden MD Work Phone: [facility] 10-04-2023 17:37-0500 Body height 154.94 cm [facility] 10-04-2023 17:37-0500 Body mass index (BMI) [Ratio] 32.1 kg/m2 [facility] 10-04-2023 17:37-0500 Body temperature 97.6 [degF] [facility] 10-04-2023 17:37-0500 Body weight 77.29 kg [facility] 10-04-2023 17:37-0500 Diastolic blood pressure 70 mm[Hg] [facility] 10-04-2023 17:37-0500 Heart rate 64 /min [facility] 10-04-2023 17:37-0500 Respiratory rate 16 /min [facility] 10-04-2023 17:37-0500 SaO2% (BldA) [Mass fraction] 98 % [facility] 10-04-2023 17:37-0500 Systolic blood pressure 109 mm[Hg] [facility] 09-21-2023 20:50-0500 Body temperature 98.1 [degF] Jorge Bearden MD Work Phone: [facility] 09-21-2023 20:50-0500 Diastolic blood pressure 73 mm[Hg] Jorge Bearden MD Work Phone: [facility] 09-21-2023 20:50-0500 Heart rate 86 /min Jorge Bearden MD Work Phone: [facility] 09-21-2023 20:50-0500 Respiratory rate 16 /min Jorge Bearden MD Work Phone: [facility] 09-21-2023 20:50-0500 SaO2% (BldA) [Mass fraction] 97 % Jorge Bearden MD Work Phone: [facility] 09-21-2023 20:50-0500 Systolic blood pressure 112 mm[Hg] Jorge Bearden MD Work Phone: [facility] 09-21-2023 17:13-0500 Body height 154.9 cm Jorge Bearden MD Work Phone: [facility] 09-21-2023 17:13-0500 Body mass index (BMI) [Ratio] 30.23 kg/m2 Jorge Bearden MD Work Phone: [facility] 09-21-2023 17:13-0500 Body weight 72.58 kg Jorge Bearden MD Work Phone: [facility] 03-04-2023 08:53-0400 Body temperature 98.24 [degF] Jorge Bearden Other Phone: [facility] 03-04-2023 08:53-0400 Diastolic blood pressure 56 mm[Hg] Jorge Bearden Other Phone: [facility] 03-04-2023 08:53-0400 Heart rate 57 /min Jorge Bearden Other Phone: [facility] 03-04-2023 08:53-0400 Respiratory rate 16 /min Jorge Bearden Other Phone: [facility] 03-04-2023 08:53-0400 SaO2% (BldA) [Mass fraction] 99 % Jorge Bearden Other Phone: [facility] 03-04-2023 08:53-0400 Systolic blood pressure 96 mm[Hg] Jorge Bearden Other Phone: [facility] 02-04-2023 00:00-0400 Diastolic blood pressure 67 mm[Hg] Jorge Bearden Other Phone: [facility] 02-04-2023 00:00-0400 Heart rate 79 /min Jorge Bearden Other Phone: [facility] 02-04-2023 00:00-0400 Respiratory rate 18 /min Jorge Bearden Other Phone: [facility] 02-04-2023 00:00-0400 SaO2% (BldA) [Mass fraction] 100 % Jorge Bearden Other Phone: [facility] 02-04-2023 00:00-0400 Systolic blood pressure 101 mm[Hg] Jorge Bearden Other Phone: [facility] 02-03-2023 21:46-0400 Body height 154.9 cm Jorge Bearden Other Phone: [facility] 02-03-2023 21:46-0400 Body temperature 97.7 [degF] Jorge Bearden Other Phone: [facility] 02-03-2023 21:46-0400 Body weight 68.2 kg Jorge Bearden Other Phone: [facility] 01-16-2023 14:35-0400 Body height 154.[address] Jorge Bearden Work Phone: [facility] 01-16-2023 14:34-0400 Body mass index (BMI) [Percentile] Per age and sex 94.5 % Dr. Jorge Bearden Work Phone: [facility] 01-16-2023 14:34-0400 Body mass index (BMI) [Ratio] 30.8 kg/m2 Dr. Jorge Bearden Work Phone: [facility] 01-16-2023 14:34-0400 Body weight 74.[address] Jorge Bearden Work Phone: [facility] 01-16-2023 14:34-0400 Diastolic blood pressure 75 mm[Hg] Dr. Jorge Bearden Work Phone: [facility] 01-16-2023 14:34-0400 Systolic blood pressure 113 mm[Hg] Dr. Jorge Bearden Work Phone: [facility] 11-30-2022 07:35-0400 Body temperature 97.5 [degF] Iker Morrow ENROBER TENDER.OFFSET LITHOGRAPHIC PRESS OPERATOR Work Phone: [facility] 11-30-2022 07:35-0400 Body weight 73.66 kg Iker Morrow ENROBER TENDER.OFFSET LITHOGRAPHIC PRESS OPERATOR Work Phone: [facility] 11-30-2022 07:35-0400 Diastolic blood pressure 66 mm[Hg] Iker Morrow ENROBER TENDER.OFFSET LITHOGRAPHIC PRESS OPERATOR Work Phone: [facility] 11-30-2022 07:35-0400 Heart rate 62 /min Iker Morrow ENROBER TENDER.OFFSET LITHOGRAPHIC PRESS OPERATOR Work Phone: [facility] 11-30-2022 07:35-0400 Respiratory rate 18 /min Iker Morrow ENROBER TENDER.OFFSET LITHOGRAPHIC PRESS OPERATOR Work Phone: [facility] 11-30-2022 07:35-0400 SaO2% (BldA) [Mass fraction] 99 % Iker James ENROBER TENDER.OFFSET LITHOGRAPHIC PRESS OPERATOR Work Phone: [facility] 11-30-2022 07:35-0400 Systolic blood pressure 102 mm[Hg] Iker Morrow ENROBER TENDER.OFFSET LITHOGRAPHIC PRESS OPERATOR Work Phone: [facility] 07-03-2022 18:23-0500 Body temperature 97.59 [degF] Barbara Ellison ENROBER TENDER.OFFSET LITHOGRAPHIC PRESS OPERATOR Work Phone: [facility] 07-03-2022 18:23-0500 Body weight 76.2 kg Barbaradestiny Ellison ENROBER TENDER.OFFSET LITHOGRAPHIC PRESS OPERATOR Work Phone: [facility] 07-03-2022 18:23-0500 Diastolic blood pressure 72 mm[Hg] Barbara Scot ENROBER TENDER.OFFSET LITHOGRAPHIC PRESS OPERATOR Work Phone: [facility] 07-03-2022 18:23-0500 Heart rate 80 /min Barbara Scot ENROBER TENDER.OFFSET LITHOGRAPHIC PRESS OPERATOR Work Phone: [facility] 07-03-2022 18:23-0500 Respiratory rate 16 /min Barbara Scot ENROBER TENDER.OFFSET LITHOGRAPHIC PRESS OPERATOR Work Phone: [facility] 07-03-2022 18:23-0500 SaO2% (BldA) [Mass fraction] 100 % Barbara Ellison APRN.OFFSET LITHOGRAPHIC PRESS OPERATOR Work Phone: [facility] 07-03-2022 18:23-0500 Systolic blood pressure 122 mm[Hg] Barbara Ellison APRN.OFFSET LITHOGRAPHIC PRESS OPERATOR Work Phone: [facility] 04-26-2022 13:31-0400 Body height 154.94 cm No Primary Care Physician [facility] Work Phone: 04-26-2022 13:29-0400 Body mass index (BMI) [Percentile] Per age and sex 95.3 % No Primary Care Physician [facility] Work Phone: 04-26-2022 13:29-0400 Body mass index (BMI) [Ratio] 31.1 kg/m2 No Primary Care Physician [facility] Work Phone: 04-26-2022 13:29-0400 Body weight 74.61 kg No Primary Care Physician [facility] Work Phone: 04-26-2022 13:29-0400 Diastolic blood pressure 69 mm[Hg] No Primary Care Physician [facility] Work Phone: 04-26-2022 13:29-0400 Systolic blood pressure 106 mm[Hg] No Primary Care Physician [facility] Work Phone: 03-26-2022 10:12-0400 Body mass index (BMI) [Percentile] Per age and sex 95.1 % No Primary Care Physician [facility] Work Phone: 03-26-2022 10:12-0400 Body mass index (BMI) [Ratio] 30.8 kg/m2 No Primary Care Physician [facility] Work Phone: 03-26-2022 10:12-0400 Body weight 73.93 kg No Primary Care Physician [facility] Work Phone: 03-26-2022 10:12-0400 Diastolic blood pressure 80 mm[Hg] No Primary Care Physician [facility] Work Phone: 03-26-2022 10:12-0400 Systolic blood pressure 122 mm[Hg] No Primary Care Physician [facility] Work Phone: 03-23-2022 08:06-0400 Body height 156 cm Jorge Bearden MD Work Phone: [facility] 03-23-2022 08:06-0400 Body mass index (BMI) [Percentile] Per age and sex 94.28 % Jorge Bearden MD Work Phone: [facility] 03-23-2022 08:06-0400 Body weight 73.03 kg Jorge Bearden MD Work Phone: [facility] 03-23-2022 08:06-0400 Diastolic blood pressure 78 mm[Hg] Jorge Bearden MD Work Phone: [facility] 03-23-2022 08:06-0400 Heart rate 66 /min Jorge Bearden MD Work Phone: [facility] 03-23-2022 08:06-0400 Systolic blood pressure 120 mm[Hg] Jorge Bearden MD Work Phone: [facility] 03-21-2022 08:09-0400 Body mass index (BMI) [Percentile] Per age and sex 95.1 % No Primary Care Physician [facility] Work Phone: 03-21-2022 08:09-0400 Body mass index (BMI) [Ratio] 30.8 kg/m2 No Primary Care Physician [facility] Work Phone: 03-21-2022 08:09-0400 Body weight 73.93 kg No Primary Care Physician [facility] Work Phone: 03-21-2022 08:09-0400 Diastolic blood pressure 80 mm[Hg] No Primary Care Physician [facility] Work Phone: 03-21-2022 08:09-0400 Systolic blood pressure 128 mm[Hg] No Primary Care Physician [facility] Work Phone: Encounters Encounter Date Encounter Type Care Provider Facility Start: 02-17-2025 End: 02-17-2025 Patient encounter procedure Bernarda Weber [facility] Start: 02-17-2025 End: 02-17-[address] Jorge Bearden MD Work Phone: [facility] Start: 02-12-2025 End: 02-12-[address] Mar Quigley MD [facility] Work Phone: Start: 02-12-2025 End: 02-12-[address] Jorge Bearden MD Work Phone: [facility] Start: 02-05-2025 End: 02-05-[address] Jorge Bearden MD Work Phone: [facility] Work Phone: Start: 02-05-2025 End: 02-05-2025 Patient encounter procedure Bernarda Weber CNM [facility] Work Phone: Start: 01-25-2025 End: 01-25-[address] Jorge Bearden MD Work Phone: [facility] Work Phone: Start: 01-25-2025 End: 01-25-[address] Lizet Sood DO -Laboratory Specimen Work Phone: Start: 01-25-2025 End: 01-25-[address] Lizet Sood DO [facility] Work Phone: Start: 01-25-2025 End: 01-25-[address] Jorge Bearden MD Work Phone: [facility] Work Phone: Start: 01-25-2025 End: 01-25-2025 ambulatory Lizet Sood Facility:[facility] Start: 01-14-2025 End: 01-14-2025 Patient encounter procedure Bernarda Weber CNM [facility] Work Phone: Start: 01-14-2025 End: 01-14-[address] Jorge Bearden MD Work Phone: [facility] Work Phone: Start: 12-28-2024 End: 12-28-2024 Patient encounter procedure Bernarda GARCIA [facility] Work Phone: Start: 12-28-2024 End: 12-28-2024 ambulatory Bernarda Weber Facility:[facility] Start: 12-21-2024 ambulatory Bernarda Weber Facility :[facility] Start: 12-21-2024 Non-patient / Non-visit Bernarda Weber [facility] Start: 12-20-2024 End: 12-20-2024 ambulatory Bernarda Weber Facility:[facility] Start: 12-20-2024 End: 12-20-2024 Patient encounter procedure [facility] Work Phone: Start: 12-18-2024 End: 12-18-[address] Mar Quigley MD [facility] Work Phone: Start: 12-18-2024 End: 12-18-2024 ambulatory Mar Quigley Facility:[facility] Start: 12-01-2024 ambulatory Lizet Bowmanty:[facility] Start: 12-01-2024 Non-patient / Non-visit Dr. Lizet Sood DO [facility] Start: 12-01-2024 End: 12-01-[address] Jorge Bearden MD Work Phone: [facility] Work Phone: Start: 12-01-2024 End: 12-01-[address] [facility] Work Phone: Start: 11-30-2024 End: 11-30-2024 Patient encounter procedure Bernarda GARCIA [facility] Work Phone: Start: 11-30-2024 End: 11-30-[address] Jorge Bearden MD Work Phone: [facility] Work Phone: Start: 11-30-2024 End: 11-30-2024 ambulatory Lizet Sood Facility:[facility] Start: 11-19-2024 End: 11-19-2024 Patient encounter procedure Bernarda GARCIA [facility] Work Phone: Start: 11-19-2024 End: 11-19-2024 ambulatory Jorge Bearden Facility:[facility] Start: 11-09-2024 End: 11-09-[address] Lizet Sood DO [facility] Work Phone: Start: 11-09-2024 End: 11-09-2024 ambulatory Lizet Sood Facility:[facility] Start: 10-12-2024 End: 10-12-2024 Emergency department patient visit [facility] Start: 10-11-2024 End: 10-11-2024 ambulatory Charlene Talavera RN NURSE RESEARCH CHIEF ENGINEER Comment on above: Fever Start: 10-11-2024 End: 10-11-2024 Patient encounter procedure Iker Morrow APRN.[facility] Work Phone: [facility] Comment on above: Sore throat (Primary Dx); URI, acute Start: 10-08-2024 End: 10-08-2024 Patient encounter procedure Bernarda GARCIA -[facility] Start: 10-08-2024 End: 10-08-2024 ambulatory Bernarda Weber Facility:[facility] Start: 09-23-2024 End: 09-23-2024 ambulatory TANESHA [facility] Start: 09-11-2024 End: 09-11-2024 Patient encounter procedure Bernarda GARCIA [facility] Work Phone: Start: 09-11-2024 End: 09-11-2024 ambulatory Bernarda Weber Facility:[facility] Start: 08-24-2024 End: 08-24-[address] Mar Quigley MD [facility] Work Phone: Start: 08-24-2024 End: 08-24-2024 ambulatory Mar Quigley Facility:[facility] Start: 2024 End: 2024 Emergency department patient visit Dr. Jonathon Vines MD -Emergency Department Work Phone: Start: 08-13-2024 End: 08-13-2024 Patient encounter procedure Jolene Lamar NEWSPAPER MANAGING EDITOR-C [facility] Work Phone: Start: 08-13-2024 End: 08-13-2024 ambulatory Jolene Willard NEWSPAPER MANAGING EDITOR Facility:[facility] Start: 08-13-2024 End: 08-13-2024 ambulatory Jolene Willard NEWSPAPER MANAGING EDITOR Facility:[facility] Start: 07-15-2024 End: 07-15-2024 ambulatory Jorge Bearden Facility:[facility] Start: 07-15-2024 End: 07-15-2024 ambulatory Bernarda Weber Facility:[facility] Start: 04-27-2024 End: 04-27-2024 ambulatory Jolene [place] NEWSPAPER MANAGING EDITOR Facility:[facility] Start: 04-27-2024 End: 04-27-2024 ambulatory Jolene Willard NEWSPAPER MANAGING EDITOR Facility:[facility] Start: 10-04-2023 End: 10-04-2023 Emergency department patient visit [facility]-Emergency Department Work Phone: Start: 09-21-2023 End: 09-21-2023 Emergency department patient visit JORGE L[place] BEARDEN [facility] Start: 09-21-2023 End: 09-21-2023 Emergency department patient visit Jorge Bearden MD Work Phone: [facility] Comment on above: Bipolar depression ( CMS/HCC) (Primary Dx) Start: 07-30-2023 Telephone encounter Lizet perez [facility] Work Phone: Psychology Comment on above: bh consult Start: 03-03-2023 End: 03-04-2023 Emergency department patient visit Philip Ren [facility] Emergency 16 Start: 02-03-2023 End: 02-04-2023 Emergency department patient visit Feroz Martinez [facility] Emergency 01 Start: 01-23-2023 Telephone encounter Jorge lui MD Work Phone: Internal [facility] [place] Comment on above: Vaginal Bleeding Start: 01-21-2023 ambulatory Deb Awad RN NURSE RESEARCH CHIEF ENGINEER Comment on above: Vaginal Bleeding Start: 01-18-2023 End: 01-18-[address] Jorge Bearden Work Phone: [facility] Work Phone: Start: 01-18-2023 End: 01-18-[address] Jorge Bearden Work Phone: [facility]-Ultrasound, [facility] Start: 01-16-2023 End: 01-16-[address] Jorge Bearden Work Phone: [facility] Work Phone: Start: 01-16-2023 End: 01-16-[address] Jorge Bearden Work Phone: [facility]-Laboratory Start: 01-16-2023 End: 01-16-[address] Jorge Bearden Work Phone: [facility] Start: 11-30-2022 End: 11-30-2022 Patient encounter procedure Iker Morrow APRN.OFFSET LITHOGRAPHIC PRESS OPERATOR Work Phone: [facility] Comment on above: Rash (Primary Dx) Start: 07-03-2022 End: 07-03-2022 Patient encounter procedure Barbara Ellison APRN.OFFSET LITHOGRAPHIC PRESS OPERATOR Work Phone: [facility] Comment on above: URI with cough and c ongestion (Primary Dx) Start: 04-26-2022 End: 04-26-2022 ambulatory No Primary Care Physician [facility] Work Phone: Start: 04-26-2022 End: 04-26-2022 Patient encounter procedure No Primary Care Physician [facility]-Laboratory, Specimen Start: 04-26-2022 End: 04-26-2022 Patient encounter procedure No Primary Care Physician [facility] Start: 03-29-2022 End: 03-29-2022 Patient encounter procedure No Primary Care Physician [facility] Start: 03-23-2022 End: 03-23-2022 Patient encounter procedure Jorge Bearden MD Work Phone: [facility] [place] Comment on above: Anxiety and depressi on (Primary Dx); Chronic tension-type headache, not intractable; Atrophy of skin and soft tissue; Breakthrough bleeding Start: 03-21-2022 End: 03-21-2022 Patient encounter procedure No Primary Care Physician [facility]-Laboratory, Specimen Start: 03-21-2022 End: 03-21-2022 Patient encounter procedure No Primary Care Physician [facility] Procedures Date Procedure Procedure Detail Performing Clinician Start: 01-25-2025 Beta-hemolytic Streptococcus culture Dr. Jorge Bearden MD Work Phone: Start: 12-20-[address] Jorge Bearden MD Work Phone: Start: 12-20-2024 Fibrinogen assay, quantitative Dr. Jorge Bearden MD Work Phone: Start: 12-20-2024 End: 12-20-2024 Ultrasound scan for growth Dr. Jorge Bearden MD Work Phone: Start: 12-20-2024 Urnls dip stick/tabl et reagent auto microscopy Dr. Jorge Bearden MD Work Phone: Start: 12-20-[address] Min Bearden MD Work Phone: Start: 12-01-[address] Jorge Bearden MD Work Phone: Start: 12-01-2024 Urnls dip stick/tabl et reagent auto microscopy Dr. Jorge Bearden MD Work Phone: Start: 12-01-[address] Min Bearden MD Work Phone: Start: 11-30-2024 Serologic test for syphilis Dr. Jorge Bearden MD Work Phone: Start: 10-11-2024 STREP A MOLECULAR (POC) Iker Morrow APRN.OFFSET LITHOGRAPHIC PRESS OPERATOR Work Phone: Start: 09-21-2023 DRUG SCREEN,URINE [place] Start: 09-21-2023 HCG, URINE, QUALITATIVE JORGE BEARDEN Start: 09-21-2023 ACUTE TOXICOLOGY IZQUIERDO EL, BLOOD J[place]GE BEARDEN Start: 09-21-2023 CBC W Auto Different ial panel - Blood JORGE BEARDEN Start: 09-21-2023 Comprehensive metabo lic 2000 panel - Serum or Plasma JORGE BEARDEN Start: 09-21-2023 EXTRA URINE BOYER TUBE V ICTOR SULEIMAN Start: 09-21-2023 URINALYSIS WITH REFL EX CULTURE AND MICROSCOPIC [place]GE [place]EN Start: 09-21-2023 Drug tst prsmv instr mnt chem analyzers pr date Tanesha Ismael ROACH-C Work Phone: Start: 09-21-2023 ACUTE TOXICOLOGY IZQUIERDO EL, BLOOD Tanesha Evansmary lou ROACH-C Work Phone: Start: 09-21-2023 Comprehensive metabo lic panel Tanesha Guevara PA-C Work Phone: Start: 09-21-2023 End: 09-21-2023 Urnls dip stick/tablet rgnt auto w/o microscopy Tanesha Ramirezellie PA-C Work Phone: Start: 03-03-2023 End: 03-03-2023 Gas panel - Arterial blood Philip Flannery Start: 03-03-2023 End: 03-03-2023 EKG impression Philip Ren Start: 01-18-[address] Jorge Bearden Work Phone: Start: 03-23-2022 Transvaginal echography No Primary Care Physician Start: 03-23-2022 Adult depression scr eening assessment Jorge Bearden MD Work Phone: Cytopathology proced ure, preparation of smear, genital source No Primary Care Physician Investigation of transfusion reaction No Primary Care Physician Plan of Treatment Date Care Activity Detail Author Start: 2053 Zoster Vaccines (1 of 2) Zoste r Vaccines (1 of 2) [facility] Start: 04-12-2031 DTaP/Tdap/Td Vaccine s (7 - Td or Tdap) DTaP/Tdap/Td Vaccines (7 - Td or Tdap) [facility] Start: 04-12-2031 Urine microalbumin profile [facility] Start: 01-25-2025 Group B Streptococcu s Culture Group B Streptococcus Culture [facility] Start: 01-25-2025 Streptococcus agalac tiae [Presence] in Unspecified specimen by Organism specific culture [facility] Start: 12-20-2024 Nonstress test [facility] Start: 12-20-2024 Obstetric monitoring [facility] Start: 12-20-2024 [facility] Start: 12-20-2024 Vital signs measurements [facility] Start: 12-01-2024 Nonstress test [facility] Start: 12-01-2024 End: 12-01-2024 [facility] Start: 12-01-2024 Insertion of cathete r into peripheral vein [facility] Start: 12-01-2024 Obstetric monitoring [facility] Start: 12-01-2024 Vital signs measurements [facility] Start: 12-01-2024 Bacteria identified in Urine by Culture Urine Culture [facility] Start: 12-01-2024 Iv infusion hydratio n each additional hour HYDRATE IV INFUSION ADD-ON [facility] Start: 12-01-2024 Ther proph/dx njx iv push single/1st sbst/drug THER/PROPH/DIAG INJ IV PUSH [facility] Start: 12-01-2024 Patient discharge [facility] Start: 2024 Screening for malign ant neoplasm of cervix Cervical Cancer Screening [facility] Start: 2024 [facility] Start: 07-29-2024 Covid-19 Vaccine (#1) Covid-19 Vacci ne (#1) [facility] Comment on above: Postponed from 02/19 (Declined at this time) Start: 04-19-2024 Covid-19 Vaccine ( season) Covid-19 Vaccine ( season) [facility] Start: 04-19-2024 Influenza vaccination Influenza Vacc ine (#1) [facility] Start: 02-16-2024 Influenza vaccination Influenza Vacc ine (#1) [facility] Comment on above: Postponed from 04/19 (Declined at this time) Start: 01-17-2024 GC (Gonorrhea) Scree ezequiel (18-24) GC (Gonorrhea) Screening () [facility] Start: 01-17-2024 Screening for Chlamy racquel trachomatis Chlamydia Screening () [facility] Start: 04-19-2023 Influenza vaccination Influenza Vacc ine (#1) [facility] Start: 03-23-2023 Adult depression scr eening assessment DEPRESSION SCREENING [facility] Start: 03-23-2023 COVID-19 VACCINE (#1) COVID-19 VACCI NE (#1) [facility] Comment on above: Postponed from 02/19 (Declined at this time) Start: 03-21-2023 CHLAMYDIA SCREENING () CH LAMYDIA SCREENING () [facility] Start: 07-03-2022 End: 07-17-2022 Influenza virus A and B RNA and SARS-CoV-2 (COVID-19) N gene panel - Respiratory specimen by PAULA with probe detection COVID WITH FLUA+B, ROUTINE Microbiology Routine URI with cough and congestion Expected: 07/03/2022, Expires: 07/17/2022 [facility] Work Phone: Comment on above: Expected: 07/03/2022 , Expires: 07/17/2022 Start: 04-19-2022 Influenza vaccination INFLUENZA (#1) [facility] Start: 03-24-2022 GC (GONORRHEA) SCREE EZEQUIEL (18-24) GC (GONORRHEA) SCREENING () [facility] Start: 03-23-2022 End: 05-23-2022 CBC panel - Blood by Automated count [facility] Work Phone: Comment on above: Expected: 03/23/2022 , Expires: 05/23/2022 Start: 03-23-2022 End: 05-23-2022 Comprehensive metabolic 2000 panel - Serum or Plasma [facility] Work Phone: Comment on above: Expected: 03/23/2022 , Expires: 05/23/2022 Start: 10-13-2021 Hepatitis A Vaccines (2 of 2 - 2-dose series) Hepatitis A Vaccines (2 of 2 - 2-dose series) [facility] Start: 10-13-2021 HPV VACCINE (3 - 3-d ose series) HPV VACCINE (3 - 3-dose series) [facility] Start: 2021 Hepatitis C screening Hepatitis C Sc [facility] Start: 2017 PEDS TO ADULT TRANSI TION ANNUAL ASSESSMENT PEDS TO ADULT TRANSITION ANNUAL ASSESSMENT [facility] Start: 2015 PEDS TO ADULT TRANSI TION INITIAL DISCUSSION PEDS TO ADULT TRANSITION INITIAL DISCUSSION [facility] Start: 2006 Well Child Visit (WC V) - Annual Well Child Visit (WCV) - Annual [facility] Start: 02-20-2004 COVID-19 Vaccine (#1) COVID-19 Vacci ne (#1) [facility] Start: 2003 Hearing Screening (#1) Hearing Scree ezequiel (#1) [facility] Start: 2003 HIV screening HIV Screening [facility] Start: 2003 Lipid panel Lipid Panel [facility] Beta-hemolytic Streptococcus culture [facility] Choriogonadotropin ( test) [Presence] in Serum or Plasma [facility] COVID & INFLUENZA A/ B & RSV PCR, ROUTINE COVID & INFLUENZA A/B & RSV PCR, ROUTINE Microbiology Routine URI, acute Ordered: 10/11/2024 [facility] Comment on above: Ordered: 10/11/2024 End: 09-21-2023 Extra Urine Boyer Tube Extra Urine [facility] T[facility] Lab Timed Once for 1 Occurrences starting 09/21/2023 until 09/21/2023 [facility] Work Phone: Comment on above: Once for 1 Occurrenc es starting 09/21/2023 until 09/21/2023 INFLUENZA A&B MOLECU LAR (POC) INFLUENZA A&B MOLECULAR (POC) Microbiology Routine URI, acute Ordered: 10/11/2024 [facility] Work Phone: Comment on above: Ordered: 10/11/2024 Patient Education [facility] Work Phone: Patient referral [facility] Work Phone: Streptococcus agalac tiae [Presence] in Unspecified specimen by Organism specific culture [facility] End: 09-21-2023 Urinalysis complete W Reflex Culture panel - Urine [facility] Service Area Work Phone: Comment on above: STAT (Lab) for 1 Occ urrences starting 09/21/2023 until 09/21/2023 Urine culture [facility] US Pelvis [facility] Work Phone: US Pelvis transvaginal [facility] Work Phone: [facility] Immunizations Immunization Date Immunization Notes Care Provider [place] 04-24-2022 Human Papillomavirus 9-valent vaccine Barbara Ellison APRN.CNP Work Phone: [facility] 04-24-2022 influenza, injectabl e, quadrivalent, contains preservative Barbara Ellison APRN.[employer] Work Phone: [facility] 04-24-2022 influenza virus vacc ine, unspecified formulation Lizet Mcfadden [facility] Work Phone: [facility] 05-15-2021 Human Papillomavirus 9-valent vaccine Jorge Bearden MD Work Phone: [facility] Work Phone: 05-15-2021 influenza, injectabl e, quadrivalent, preservative free Jorge Bearden MD Work Phone: [facility] Work Phone: 05-15-2021 meningococcal B vacc ine, recombinant, OMV, adjuvanted Jorge Bearden MD Work Phone: [facility] Work Phone: 04-12-2021 hepatitis A vaccine, pediatric/adolescent dosage, 2 dose schedule Jorge Bearden MD Work Phone: [facility] Work Phone: 04-12-2021 Human Papillomavirus 9-valent vaccine Jorge Bearden MD Work Phone: [facility] Work Phone: 04-12-2021 meningococcal B vacc ine, recombinant, OMV, adjuvanted Jorge Bearden MD Work Phone: [facility] Work Phone: 04-12-2021 meningococcal polysaccharide (groups A, C, Y and W-135) diphtheria toxoid conjugate vaccine (MCV4P) Jorge Bearden MD Work Phone: [facility] Work Phone: 04-12-2021 tetanus toxoid, redu yaya diphtheria toxoid, and acellular pertussis vaccine, adsorbed Jorge Bearden MD Work Phone: [facility] Work Phone: 04-12-2021 hepatitis A and hepatitis B vaccine Jorge Bearden MD Work Phone: [facility] Work Phone: 04-13-2009 diphtheria, tetanus toxoids and acellular pertussis vaccine, unspecified formulation Jorge Bearden MD Work Phone: [facility] Work Phone: 04-13-2009 measles, mumps and rubella virus vaccine Jorge Bearden MD Work Phone: [facility] Work Phone: 04-13-2009 poliovirus vaccine, inactivated Jorge Bearden MD Work Phone: [facility] Work Phone: 04-13-2009 varicella virus vaccine Wale Bearden MD Work Phone: [facility] Work Phone: 06-17-2006 influenza nasal, unspecified formulation Jorge Bearden MD Work Phone: [facility] Work Phone: 11-28-2004 diphtheria, tetanus toxoids and acellular pertussis vaccine, unspecified formulation Jorge Bearden MD Work Phone: [facility] Work Phone: 11-28-2004 haemophilus influenz ae type b conjugate and Hepatitis B vaccine Jorge Bearden MD Work Phone: [facility] Work Phone: 11-28-2004 pneumococcal conjuga te vaccine, 7 valent Jorge Bearden MD Work Phone: [facility] Work Phone: 11-28-2004 poliovirus vaccine, inactivated Jorge Bearden MD Work Phone: [facility] Work Phone: 10-19-2004 influenza virus vacc ine, whole virus Jorge Bearden MD Work Phone: [facility] Work Phone: 10-19-2004 measles, mumps and rubella virus vaccine Jorge Bearden MD Work Phone: [facility] Work Phone: 10-19-2004 varicella virus vaccine Wale Bearden MD Work Phone: [facility] Work Phone: 03-23-2004 diphtheria, tetanus toxoids and acellular pertussis vaccine, unspecified formulation Jorge Bearden MD Work Phone: [facility] Work Phone: 03-23-2004 haemophilus influenz ae type b vaccine, PRP-T conjugate Jorge Bearden MD Work Phone: [facility] Work Phone: 03-23-2004 pneumococcal conjuga te vaccine, 7 valent Jorge Bearden MD Work Phone: [facility] Work Phone: 2003 diphtheria, tetanus toxoids and acellular pertussis vaccine, unspecified formulation Jorge Bearden MD Work Phone: [facility] Work Phone: 2003 haemophilus influenz ae type b vaccine, PRP-T conjugate Jorge Bearden MD Work Phone: [facility] Work Phone: 2003 pneumococcal conjuga te vaccine, 7 valent Jorge Bearden MD Work Phone: [facility] Work Phone: 2003 poliovirus vaccine, inactivated Jorge Bearden MD Work Phone: [facility] Work Phone: 2003 diphtheria, tetanus toxoids and acellular pertussis vaccine, unspecified formulation Jorge Bearden MD Work Phone: [facility] Work Phone: 2003 haemophilus influenz ae type b conjugate and Hepatitis B vaccine Jorge Bearden MD Work Phone: [facility] Work Phone: 2003 haemophilus influenz ae type b vaccine, PRP-T conjugate Jorge Bearden MD Work Phone: [facility] Work Phone: 2003 hepatitis B vaccine, pediatric or pediatric/adolescent dosage Jorge Bearden MD Work Phone: [facility] Work Phone: 2003 pneumococcal conjuga te vaccine, 7 valent Jorge Bearden MD Work Phone: [facility] Work Phone: 2003 poliovirus vaccine, inactivated Jorge Bearden MD Work Phone: [facility] Work Phone: 2003 hepatitis B vaccine, pediatric or pediatric/adolescent dosage Jorge Bearden MD Work Phone: [facility] Work Phone: Payers Date Payer Category Payer Medicaid [id number] 2024 Unknown [id number] 2024 Self-pay [id number] 2019 Unknown [employer] BLUE CARD PPO OOS [id number] 2019-Present [phone] [id number] [place] [address] PPO [id number] 2019 Unknown [id number] 2019 Unknown [id number] 2003 Unknown [id number] 2.16.840.1.902845.3.579.2.1069 2003 Unknown [id number] 2.16.840.1.824568.3.579.2.1069 2003 Unknown [id number] 2.16.840.1.572629.3.579.2.1243 2003 Unknown [id number] 2.16.840.1.394973.3.579.2.479 2003 Unknown [id number] 2.16.840.1.932961.3.579.2.651 Unknown [id number] Unknown [id number] Unknown [id number] 2.16.840.1.838815.3.579.2.462 Unknown [id number] 2.16.840.1.190279.3.579.2.462 Unknown [id number] 2.16.840.1.119299.3.579.2.462 Unknown [id number] 2.16.840.1.368923.3.579.2.462 Unknown [id number] 2.16.840.1.660721.3.579.2.462 Unknown [id number] 2.16.840.1.406587.3.579.2.462 Unknown [id number] 2.16.840.1.072888.3.579.2.462 Unknown [id number] 2.16.840.1.618864.3.579.2.462 Unknown [id number] 2.840.1.404680.3.579.2.462 Unknown [id number] 2.840.1.092607.3.579.2.462 Unknown [id number] 2.840.1.063462.3.579.2.462 Unknown [id number] 2.840.1.188163.3.579.2.462 Unknown [id number] 2.840.1.091727.3.579.2.462 Unknown [id number] 2.840.1.074666.3.579.2.462 Unknown [id number] 2.16.840.1.256387.3.579.2.462 Unknown [id number] 2.16.840.1.386562.3.579.2.462 Unknown [id number] 2.16.840.1.962810.3.579.2.462 Unknown [id number] 2.16.840.1.020909.3.579.2.462 Unknown [id number] 2.16.840.1.061405.3.579.2.462 Unknown [id number] 2.16.840.1.236945.3.579.2.462 Unknown [id number] 2.16.840.1.111556.3.579.2.462 Unknown [id number] 2.16.840.1.106295.3.579.2.462 Unknown [id number] 2.16.840.1.351085.3.579.2.462 Unknown [id number] 2.16.840.1.519511.3.579.2.462 Unknown [id number] 2.16.840.1.515141.3.579.2.462 Unknown [id number] 2.16.840.1.827848.3.579.2.462 Social History Date Type Detail Facility Start: 03-23-2022 End: 07-03-2022 Tobacco smoking status NHIS Never smoked tobacco [facility] Start: 03-23-2022 End: 07-03-2022 Tobacco use and exposure Smokeless tobacco non-user [facility] Start: 03-23-2022 End: 10-11-2024 Alcohol intake Ex-drinker (finding) [facility] Start: 03-23-2022 History SDOH Alcohol Frequency 1 [facility] Start: 2003 Sex Assigned At Not on file [facility] Start: 03-13-2022 End: 09-21-2023 Exposure to SARS-CoV-2 (event) Not sure [facility] Start: 03-26-2022 End: 01-16-2023 Tobacco smoking status NHIS Unknown if ever smoked [facility] Start: 12-28-2019 With Family [facility] Start: 2003 Sex Assigned At Female [facility] Start: 03-23-2022 End: 08-05-2023 History of Social function [facility] Work Phone: Start: 03-23-2022 End: 08-05-2023 Alcohol Use Disorder Identification Test - Consumption [AUDIT-C] [facility] Work Phone: How often to you hav e a drink containing alcohol? Never [facility] Work Phone: Average Number of Drinks Not on file [facility] Start: 03-24-2022 Gender identity Identifies as female gender (finding) [facility] Start: 03-24-2022 Sexual orientation Heterosexual (finding) [facility] Start: 06-01-2024 [facility] Start: 2024 End: 02-12-2025 Tobacco smoking status NHIS Ex-smoker (finding) [facility] Start: 12-01-2024 End: 12-02-2024 Sex Female (finding) [facility] Clinical Notes 03-23-2022 to 02-17-2025 Note Date & Type Note Facility 02-17-2025 Progress note [facility] 02-12-2025 Progress note [facility] 02-05-2025 Progress note [facility] 01-25-2025 Progress note [facility] 01-14-2025 Progress note [facility] 11-09-2024 Evaluation note Diagnosis Onset Date Resolution Anxiety acute November 09 11:18am Bipolar disorder acute November 092024 11:18am Major depression acute November 092024 11:18am acute November 09 11:18am Supervision of high-risk acute November 09, 2024 11:18am Dysthymia resolved November 09 11:18am Former electronic cigarette use resolved November 09, 2024 11:18am Anxiety acute November 19 10:52am Bipolar disorder acute November 10:52am Major depression acute November 10:52am acute November 19 10:52am Supervision of high-risk acute November 19, 2024 10:52am Dysthymia resolved November 19 10:52am Former electronic cigarette use resolved November 19, 2024 10:52am Anxiety acute November 30 9:55am Bipolar disorder acute November 302024 9:55am Major depression acute November 302024 9:55am acute November 30 9:55am Supervision of high-risk acute November 30, 2024 9:55am Dysthymia resolved November 30 9:55am Former electronic cigarette use resolved November 30, 2024 9:55am Anxiety acute December 01 5:30pm Bipolar disorder acute December 012024 5:30pm Major depression acute December 012024 5:30pm acute December 01 5:30pm Supervision of high-risk acute December 01, 2024 5:30pm Dysthymia resolved December 01 5:30pm Former electronic cigarette use resolved December 01, 2024 5:30pm Gastroenteritis resolved November 5:30pm Anxiety acute December 18, 2024 9:34am Bipolar disorder acute December 18, 2024 9:34am GERD (gastroesophageal reflux disease) acute December 18, 2024 9:34am Major depression acute December 18, 2024 9:34am acute December 18, 2024 9:34am Supervision of high-risk acute December 18, 2024 9:34am Anxiety acute December 20, 2024 4:50pm Back pain affecting acute December 20, 2024 4:50pm Bipolar disorder acute December 20, 2024 4:50pm GERD (gastroesophageal reflux disease) acute December 20, 2024 4:50pm Major depression acute December 20, 2024 4:50pm acute December 20, 2024 4:50pm Supervision of high-risk acute December 20, 2024 4:50pm Anxiety acute December 28, 2024 1:50pm Back pain affecting acute December 28, 2024 1:50pm Bipolar disorder acute December 1:50pm GERD (gastroesophageal reflux disease) acute December 28, 2024 1:50pm Major depression acute December 1:50pm acute December 28, 2024 1:50pm Supervision of high-risk acute December 28, 2024 1:50pm Anxiety acute January 14, 2025 10:39am Back pain affecting acute January 14, 2025 10:39am Bipolar disorder acute December 10:39am GERD (gastroesophageal reflux disease) acute January 14, 2025 10:39am Major depression acute December 10:39am acute January 14, 2025 10:39am Supervision of high-risk acute January 14, 2025 10:39am Anxiety acute January 25, 2025 10:37am Back pain affecting acute January 25, 2025 10:37am Bipolar disorder acute January 10:37am GERD (gastroesophageal reflux disease) acute January 25, 2025 10:37am Major depression acute January 10:37am acute January 25, 2025 10:37am Supervision of high-risk acute January 25, 2025 10:37am Anxiety acute February 05 11:35am Back pain affecting acute February 05, 2025 11:35am Bipolar disorder acute January 11:35am GERD (gastroesophageal reflux disease) acute February 05, 2025 11:35am Major depression acute January 11:35am acute February 05 11:35am Supervision of high-risk acute February 05, 2025 11:35am Anxiety acute February 12 1:28pm Back pain affecting acute February 12, 2025 1:28pm Bipolar disorder acute January 1:28pm GERD (gastroesophageal reflux disease) acute February 12, 2025 1:28pm Major depression acute January 1:28pm acute February 12 1:28pm Supervision of high-risk acute February 12, 2025 1:28pm [facility] Work Phone: 1(388) 983-820703-24-2025 Evaluation note* Diagnosis Onset Date Resolution Status Admit Date Anxiety acute November 09 11:18am Bipolar disorder acute November 092024 11:18am Major depression acute November 092024 11:18am acute November 09 11:18am Supervision of high-risk acute November 09, 2024 11:18am Dysthymia resolved November 09 11:18am Former electronic cigarette use reso lved November 09, 2024 11:18am Anxiety acute November 19 10:52am Bipolar disorder acute November 10:52am Major depression acute November 10:52am acute November 19 10:52am Supervision of high-risk acute November 19, 2024 10:52am Dysthymia resolved November 19 10:52am Former electronic cigarette use reso lved November 19, 2024 10:52am Anxiety acute November 30 9:55am Bipolar disorder acute November 302024 9:55am Major depression acute November 302024 9:55am acute November 30 9:55am Supervision of high-risk acute November 30, 2024 9:55am Dysthymia resolved November 30 9:55am Former electronic cigarette use reso lved November 30, 2024 9:55am Anxiety acute December 01 5:30pm Bipolar disorder acute December 012024 5:30pm Major depression acute December 012024 5:30pm acute December 01 5:30pm Supervision of high-risk acute December 01, 2024 5:30pm Dysthymia resolved December 01 5:30pm Former electronic cigarette use reso lved December 01, 2024 5:30pm Gastroenteritis resolved November 5:30pm Anxiety acute December 18, 2024 9:34am Bipolar disorder acute December 18, 2024 9:34am GERD (gastroesophageal reflu x disease) acute December 18, 2024 9: 34am Major depression acute December 18, 2024 9:34am acute December 18, 2024 9:34am Supervision of high-risk acute December 18, 2024 9: 34am Anxiety acute December 20, 2024 4:50pm Back pain affecting acute December 20, 2024 4:50pm Bipolar disorder acute December 20, 2024 4:50pm GERD (gastroesophageal reflu x disease) acute December 20, 2024 4: 50pm Major depression acute December 20, 2024 4:50pm acute December 20, 2024 4:50pm Supervision of high-risk acute December 20, 2024 4: 50pm Anxiety acute December 28, 2024 1:50pm Back pain affecting acute December 28, 2024 1:50pm Bipolar disorder acute December 1:50pm GERD (gastroesophageal reflu x disease) acute December 28, 2024 1 :50pm Major depression acute December 1:50pm acute December 28, 2024 1:50pm Supervision of high-risk acute December 28, 2024 1 :50pm Anxiety acute January 14, 2025 10:39am Back pain affecting acute January 14, 2025 10:39am Bipolar disorder acute December 10:39am GERD (gastroesophageal reflu x disease) acute January 14, 2025 1 0:39am Major depression acute December 10:39am acute January 14, 2025 10:39am Supervision of high-risk acute January 14, 2025 1 0:39am Anxiety acute January 25, 2025 10:37am Back pain affecting acute January 25, 2025 10:37am Bipolar disorder acute January 10:37am GERD (gastroesophageal reflu x disease) acute January 25, 2025 1 0:37am Major depression acute January 10:37am acute January 25, 2025 10:37am Supervision of high-risk acute January 25, 2025 1 0:37am Anxiety acute February 05 11:35am Back pain affecting acute February 05, 2025 11:35am Bipolar disorder acute January 11:35am GERD (gastroesophageal reflu x disease) acute February 05, 2025 11:35am Major depression acute January 11:35am acute February 05 11:35am Supervision of high-risk acute February 05, 2025 11:35am Anxiety acute February 12 1:28pm Back pain affecting acute February 12, 2025 1:28pm Bipolar disorder acute January 1:28pm GERD (gastroesophageal reflu x disease) acute February 12, 2025 1:28pm Major depression acute January 1:28pm acute February 12 1:28pm Supervision of high-risk acute February 12, 2025 1:28pm Anxiety acute February 17, 2025 8:33am Back pain affecting acute February 17, 2025 8:33am Bipolar disorder acute February 8:33am GERD (gastroesophageal reflu x disease) acute February 17, 2025 8 :33am Major depression acute February 8:33am acute February 17, 2025 8:33am Supervision of high-risk acute February 17, 2025 8 :33am [facility] Work Phone: [phone] 706-913403-02-2025 NoteDischarge Instructions Discharge Summary [address] [place] [address] [id number] 10/12/2024 Patient: ERIKA PINEDA Sex: Female : 2005 Age: 19y Thank you for visiting [facility] [place]. You have been evaluated today by Ronaldo Tamez M.D. for the following condition(s): Principal Diagnosis Vomiting with nausea. influenza A. INSTRUCTIONS Drink plenty of fluids. Warnings: GENERAL WARNINGS: Return or contact your physician immediately if your condition worsens or changes unexpectedly, if not improving as expected, or if other problems arise. Prescription Medications: Medications prescribed: (Ondansetron ODT 4 mg discontinue Tamiflu) OTC Medications: Take acetaminophen (Tylenol) according to label instructions. Available over the counter. Follow-up: Follow up with your healthcare provider in about two days if not better. 1 of 9 Discharge Instructions Patient Signature Facility [employer] Date/Time General Instructions with ExitWriter [address] [address] [id number] 10/12/2024 Patient: ERIKA PINEDA Sex: Female : 2005 Age: 19y Thank you for visiting [facility] [place]. You have been evaluated today by Ronaldo Tamez M.D. for the following condition(s): Principal Diagnosis Vomiting with nausea. influenza A. INSTRUCTIONS Drink plenty of fluids. Warnings: GENERAL WARNINGS: Return or contact your physician immediately if your condition worsens or changes unexpectedly, if not improving as expected, or if other problems arise. Prescription Medications: Medications prescribed: (Ondansetron ODT 4 mg discontinue Tamiflu) OTC Medications: Take acetaminophen (Tylenol) according to label instructions. Available over the counter. Follow-up: Follow up with your healthcare provider in about two days if not better. 2 of 9 Discharge Instructions Discharge Summary [address] [address] [id number] 10/12/2024 Patient: ERIKA PINEDA Sex: Female : 2005 Age: 19y Thank you for visiting [facility] [place]. You have been evaluated today by George Watson, D.O. for the following condition(s): Principal Diagnosis Influenza type A with upper respiratory infection. Probable costochondritis INSTRUCTIONS Rest. Prescription Medications: Reglan 10 mg tablet: Take 1 tablet by mouth three times a day prn for nausea/vomiting for 7 days, dispense 21 tablet. Refills 0. Pharmacy: [facility] [id number] [place] [address]. Follow-up: Follow up with your doctor in three days. Call for an appointment. You have been given the following additional information: Chest Wall Pain: Costochondritis Influenza (Adult) 3 of 9 Discharge Instructions Patient Signature Facility [employer] Date/Time General Instructions with ExitWriter [facility] [place] [address] [place] [address] [id number] 10/12/2024 Patient: ERIKA PINEDA Sex: Female : 2005 Age: 19y Thank you for visiting [facility] [place]. You have been evaluated today by George Watson D.O. for the following condition(s): Principal Diagnosis Influenza type A with upper respiratory infection. Probable costochondritis INSTRUCTIONS Rest. Prescription Medications: Reglan 10 mg tablet: Take 1 tablet by mouth three times a day prn for nausea/vomiting for 7 days, dispense 21 tablet. Refills 0. Pharmacy: [facility] [id number] [place] [address]. Follow-up: Follow up with your doctor in three days. Call for an appointment. ADDITIONAL INFORMATION 4 of 9 Discharge Instructions Chest Wall Pain: Costochondritis The chest pain that you have had today is caused by costochondritis. This condition is caused by aninflammation of the cartilage joining your ribs to your breastbone. It's not caused by heart or lung problems. Your healthcare team has made sure that the chest pain you feel is not from a life threatening cause of chest pain such as heart attack, collapsed lung, blood clot in the lung, tear in the aorta, or esophageal rupture. The inflammation may have been brought on by a blow to the chest, lifting heavy objects, intense exercise, or an illness thatmade you cough and sneeze a lot. It often occurs during times of emotional stress. It can be painful, but it's notdangerous. It usually goes away in 1 to 2 weeks. But it may happen again. Rarely, a more serious condition may cause symptoms similar to costochondritis. That's why it's important to watch for the warning signs listed below. Home (more content not included)...[facility]02-23-2025 Telephone encounter Note* Telephone Encounter - Charlene Talavera RN - 10/11/2024 5:49 PM EST Reason for Call: flu Outcome: See PCP within 24 hours Patient was conferenced to [facility] for PCP scheduling. Reason for Disposition [1] Fever 100.4 F (38.0 C) or higher AND [2] lasts > 3 days Answer Assessment - Initial Assessment Questions 1. TEMPERATURE: 101F 2. ONSET: This morning, [facility], symptoms not improving 3. CHILLS: Shaking chills , they are mild 4. CAUSE: Cough and vomiting four times today since returning [facility] the [facility] 5. CONTACTS: No 6. TREATMENT: Tamiflu taken , nothing else so far. 7. IMMUNOCOMPROMISE: no 8. OTHER SYMPTOMS: Headache pain is 5/10 Mild decrease in movement today 9. MCKENZIE: 02/22/25 10. TRAVEL: no Protocols used: [id number], - Hncbk-[id number]-IC [facility]02-23-2025 Miscellaneous Notes* Telephone Encounter - Charlene Talavera RN - 10/11/2024 5:49 PM EST Reason for Call: flu Outcome: See PCP within 24 hours Patient was conferenced to [facility] in [facility] for PCP scheduling. Reason for Disposition [1] Fever 100.4 F (38.0 C) or higher AND [2] lasts > 3 days Answer Assessment - Initial Assessment Questions 1. TEMPERATURE: 101F 2. ONSET: This morning, [facility], symptoms not improving 3. CHILLS: Shaking chills , they are mild 4. CAUSE: Cough and vomiting four times today since returning [facility] the [facility] 5. CONTACTS: No 6. TREATMENT: Tamiflu taken , nothing else so far. 7. IMMUNOCOMPROMISE: no 8. OTHER SYMPTOMS: Headache pain is 5/10 Mild decrease in movement today 9. MCKENZIE: 02/22/25 10. TRAVEL: no Protocols used: [id number]-[id number], - Oylqo-WVAPD-LA documented in this encounterFirelands Regional Medical Center02-23-2025 HsykKWWN-MOL-9 (AGENT OF COVID-19) RNA: Not detected INFLUENZA A RNA: Detected INFLUENZA B RNA: Not detected RESPIRATORY SYNCYTIAL VIRUS (RSV) RNA: Not detectedPromedica Toledo HospitalComment on above:Performed By: #### [id number] #### [facility] CLIA [id number] [address] [place] [address] STATES OF [id number] NoteHNO ID: [id number] Author: IKER MORROW APRN.[employer] OPERATOR Service: ? Author Type: Nurse Practitioner Type: Progress Notes Filed: 10/11/2024 11:45 Note Text: CC: Patient presents with: Shortness of Breath: Cough, chest congestion, low fever x last night HPI: Erika Pineda is a 19 year old female who presents to the office with complaint of chest congestion, head congestion, cough, nonproductive, and fever since last night. Symptoms are staying the same. Associated symptoms includes sore throat and cough. Denies wheezing, dyspnea, nausea, vomiting , and diarrhea. Treatments tried include nothing so far. with no relief of symptoms. Sick contacts: unknown. History of asthma, frequent episodes of bronchitis, chronic bronchitis, bronchiectasis or COPD: No Smoker: No Seasonal/environmental allergies: No The ROS is otherwise negative. The patient's pmh, medications, allergies, and past visits are reviewed. PHYSICAL EXAM: BP 116/68 Pulse 107 Temp 37.6 ?C (99.6 ?F) Resp 20 Wt 75.7 kg (166 lb 14.2 oz) LMP (LMP Unknown) SpO2 100% General appearance: alert, cooperative, pleasant, in no acute distress Head: Normocephalic Eyes: EOM's intact, conjunctiva pink and moist, no icterus, sclera white, non-injected Ears: Right ear: External ear/canal- Normal, TM - clear with good landmarks. Left ear: External ear/canal- Normal, TM - clear with good landmarks Oropharynx:mild erythema, without exudates present Heart: Negative. RRR without obvious murmur, gallop, or rubs. No ectopy. Lungs: clear to auscultation, without rales or wheeze, good air exchange PAST MEDICAL HISTORY Diagnosis Date Anxiety and depression 03/23/2022 Bipolar affective disorder, current episode mixed ([facility]) 07/30/2023 Breakthrough bleeding 03/23/2022 COVID-19 05/02/2021 Infection due to Chlamydia species 03/23/[address] 04/12/2021 Recurrent major depressive disorder ([facility]) 07/30/2023 Suicide attempt by acetaminophen overdose ([facility]) 03/03/2023 also on 06/2022 PAST SURGICAL HISTORY Procedure Laterality Date PAST SURGICAL HISTORY OF 2019 Oral surgery under [facility] Patient has no known allergies. MEDICATIONS vit no.124/iron/folic ( VITAMIN ORAL) Take by mouth. buPROPion XL (WELLBUTRIN XL) 300 mg 24 hr tablet Take 1 tablet by mouth once daily. hydrOXYzine HCl (ATARAX) 50 mg tablet Take 1 tablet by mouth once daily as needed for anxiety. FAMILY HISTORY Problem Relation Age of Onset [...] Never Smokeless tobacco: Never Vaping Use Vaping status: Former Quit date: 08/19/2020 Substance Use Topics Alcohol use: Not Currently Drug use: Never ASSESSMENT/PLAN: 1. Sore throat - ICD9: 462, ICD10: J02.9 (primary diagnosis) - STREP A MOLECULAR (POC) - neg 2. URI, acute - ICD9: 465.9, ICD10: J06.9 - INFLUENZA AANDB MOLECULAR (POC) - invalid here - COVID AND INFLUENZA A/B AND RSV PCR, ROUTINE - OSELTAMIVIR 75 MG CAPSULE Because patient is and when the fluids have popped invalid here they have usually been positive on send out. Patient is negative for flu however stop the Tamiflu Prescription instructions reviewed with patient as applicable. Potential red flag symptoms discussed with the patient. Reviewed appropriate action plan to take if red flag symptoms occur. Patient agreeable to treatment plan. Iker Morrow APRN.[facility]02-23-2025 History of Present illness Narrative* Iker Morrow APRN.[facility] - 10/11/2024 11:09 AM EST CC: Patient presents with: Shortness of Breath: Cough, chest congestion, low fever x last night HPI: Erika Pineda is a 19 year old female who presents to the office with complaint of chest congestion, head congestion, cough, nonproductive, and fever since last night. Symptoms are staying the same. Associated symptoms includes sore throat and cough. Denies wheezing, dyspnea, nausea, vomiting , and diarrhea. Treatments tried include nothing so far. with no relief of symptoms. Sick contacts: unknown. History of asthma, frequent episodes of bronchitis, chronic bronchitis, bronchiectasis or COPD: No Smoker: No Seasonal/environmental allergies: No The ROS is otherwise negative. The patient's pmh, medications, allergies, and past visits are reviewed. PHYSICAL EXAM: BP 116/68 Pulse 107 Temp 37.6 C (99.6 F) Resp 20 Wt 75.7 kg (166 lb 14.2 oz) LMP (LMP Unknown) SpO2 100% General appearance: alert, cooperative, pleasant, in no acute distress Head: Normocephalic Eyes: EOM's intact, conjunctiva pink and moist, no icterus, sclera white, non-injected Ears: Right ear: External ear/canal- Normal, TM - clear with good landmarks. Left ear: External ear/canal- Normal, TM - clear with good landmarks Oropharynx:mild erythema, without exudates present Heart: Negative. RRR without obvious murmur, gallop, or rubs. No ectopy. Lungs: clear to auscultation, without rales or wheeze, good air exchange PAST MEDICAL HISTORY Diagnosis Date Anxiety and depression 03/23/2022 Bipolar affective disorder, current episode mixed ([facility]) 07/30/2023 Breakthrough bleeding 03/23/2022 COVID-19 05/02/2021 Infection due to Chlamydia species 03/23/[address] 04/12/2021 Recurrent major depressive disorder ([facility]CC) 07/30/2023 Suicide attempt by acetaminophen overdose ([facility]) 03/03/2023 also on 06/2022 PAST SURGICAL HISTORY Procedure Laterality Date PAST SURGICAL HISTORY OF 2019 Oral surgery under [facility] Patient has no known allergies. MEDICATIONS vit no.124/iron/folic ( VITAMIN ORAL) Take by mouth. buPROPion XL (WELLBUTRIN XL) 300 mg 24 hr tablet Take 1 tablet by mouth once daily. hydrOXYzine HCl (ATARAX) 50 mg tablet Take 1 tablet by mouth once daily as needed for anxiety. FAMILY HISTORY Problem Relation Age of Onset [...] Never Smokeless tobacco: Never Vaping Use Vaping status: Former Quit date: 08/19/2020 Substance Use Topics Alcohol use: Not Currently Drug use: Never ASSESSMENT/PLAN: 1. Sore throat - ICD9: 462, ICD10: J02.9 (primary diagnosis) - STREP A MOLECULAR (POC) - neg 2. URI, acute - ICD9: 465.9, ICD10: J06.9 - INFLUENZA A&B MOLECULAR (POC) - invalid here - COVID & INFLUENZA A/B & RSV PCR, ROUTINE - OSELTAMIVIR 75 MG CAPSULE Because patient is and when the fluids have popped invalid here they have usually been positive on send out. Patient is negative for flu however stop the Tamiflu Prescription instructions reviewed with patient as applicable. Potential red flag symptoms discussed with the patient. Reviewed appropriate action plan to take if red flag symptoms occur. Patient agreeable to treatment plan. Iker Morrow APRN.HAJA documented in this encounterFirelands Regional Medical Center02-20-2025 Evaluation note* Diagnosis Onset Date Resolution Status Admit Date Anxiety acute October 08, 2024 9:28am Bipolar disorder acute October 08, 2024 9:28am Major depression acute October 08, 2024 9:28am acute October 08, 2024 9:28am Supervision of high-risk acute October 08 9:28am Dysthymia resolved October 08, 2024 9:28am Former electronic cigarette use reso lved October 08, 2024 9:28am Anxiety acute November 09 11:18am Bipolar disorder acute November 092024 11:18am Major depression acute November 092024 11:18am acute November 09 11:18am Supervision of high-risk acute November 09, 2024 11:18am Dysthymia resolved November 09 11:18am Former electronic cigarette use reso lved November 09, 2024 11:18am Anxiety acute November 19 10:52am Bipolar disorder acute November 10:52am Major depression acute November 10:52am acute November 19 10:52am Supervision of high-risk acute November 19, 2024 10:52am Dysthymia resolved November 19 10:52am Former electronic cigarette use reso lved November 19, 2024 10:52am Anxiety acute November 30 9:55am Bipolar disorder acute November 302024 9:55am Major depression acute November 302024 9:55am acute November 30 9:55am Supervision of high-risk acute November 30, 2024 9:55am Dysthymia resolved November 30 9:55am Former electronic cigarette use reso lved November 30, 2024 9:55am Anxiety acute December 01 5:30pm Bipolar disorder acute December 012024 5:30pm Major depression acute December 012024 5:30pm acute December 01 5:30pm Supervision of high-risk acute December 01, 2024 5:30pm Dysthymia resolved December 01 5:30pm Former electronic cigarette use reso lved December 01, 2024 5:30pm Gastroenteritis resolved November 5:30pm Anxiety acute December 18, 2024 9:34am Bipolar disorder acute December 18, 2024 9:34am GERD (gastroesophageal reflu x disease) acute December 18, 2024 9: 34am Major depression acute December 18, 2024 9:34am acute December 18, 2024 9:34am Supervision of high-risk acute December 18, 2024 9: 34am Anxiety acute December 20, 2024 4:50pm Back pain affecting acute December 20, 2024 4:50pm Bipolar disorder acute December 20, 2024 4:50pm GERD (gastroesophageal reflu x disease) acute December 20, 2024 4: 50pm Major depression acute December 20, 2024 4:50pm acute December 20, 2024 4:50pm Supervision of high-risk acute December 20, 2024 4: 50pm Anxiety acute December 28, 2024 1:50pm Back pain affecting acute December 28, 2024 1:50pm Bipolar disorder acute December 1:50pm GERD (gastroesophageal reflu x disease) acute December 28, 2024 1 :50pm Major depression acute December 1:50pm acute December 28, 2024 1:50pm Supervision of high-risk acute December 28, 2024 1 :50pm Anxiety acute January 14, 2025 10:39am Back pain affecting acute January 14, 2025 10:39am Bipolar disorder acute December 10:39am GERD (gastroesophageal reflu x disease) acute January 14, 2025 1 0:39am Major depression acute December 10:39am acute January 14, 2025 10:39am Supervision of high-risk acute January 14, 2025 1 0:39am [facility] Work Phone: [phone]) 573-481702-20-2025 Evaluation note* Diagnosis Onset Date Resolution Status Admit Date Anxiety acute October 08, 2024 9:28am Bipolar disorder acute October 08, 2024 9:28am Major depression acute October 08, 2024 9:28am acute October 08, 2024 9:28am Supervision of high-risk acute October 08, 9:28am Dysthymia resolved October 08, 2024 9:28am Former electronic cigarette use reso lved October 08, 2024 9:28am Anxiety acute November 09 11:18am Bipolar disorder acute November 092024 11:18am Major depression acute November 092024 11:18am acute November 09 11:18am Supervision of high-risk acute November 09, 2024 11:18am Dysthymia resolved November 09 11:18am Former electronic cigarette use reso lved November 09, 2024 11:18am Anxiety acute November 19 10:52am Bipolar disorder acute November 10:52am Major depression acute November 10:52am acute November 19 10:52am Supervision of high-risk acute November 19, 2024 10:52am Dysthymia resolved November 19 10:52am Former electronic cigarette use reso lved November 19, 2024 10:52am Anxiety acute November 30 9:55am Bipolar disorder acute November 302024 9:55am Major depression acute November 302024 9:55am acute November 30 9:55am Supervision of high-risk acute November 30, 2024 9:55am Dysthymia resolved November 30 9:55am Former electronic cigarette use reso lved November 30, 2024 9:55am Anxiety acute December 01 5:30pm Bipolar disorder acute December 012024 5:30pm Major depression acute December 012024 5:30pm acute December 01 5:30pm Supervision of high-risk acute December 01, 2024 5:30pm Dysthymia resolved December 01 5:30pm Former electronic cigarette use reso lved December 01, 2024 5:30pm Gastroenteritis resolved November 5:30pm Anxiety acute December 18, 2024 9:34am Bipolar disorder acute December 18, 2024 9:34am GERD (gastroesophageal reflu x disease) acute December 18, 2024 9: 34am Major depression acute December 18, 2024 9:34am acute December 18, 2024 9:34am Supervision of high-risk acute December 18, 2024 9: 34am Anxiety acute December 20, 2024 4:50pm Back pain affecting acute December 20, 2024 4:50pm Bipolar disorder acute December 20, 2024 4:50pm GERD (gastroesophageal reflu x disease) acute December 20, 2024 4: 50pm Major depression acute December 20, 2024 4:50pm acute December 20, 2024 4:50pm Supervision of high-risk acute December 20, 2024 4: 50pm Anxiety acute December 28, 2024 1:50pm Back pain affecting acute December 28, 2024 1:50pm Bipolar disorder acute December 1:50pm GERD (gastroesophageal reflu x disease) acute December 28, 2024 1 :50pm Major depression acute December 1:50pm acute December 28, 2024 1:50pm Supervision of high-risk acute December 28, 2024 1 :50pm Anxiety acute January 14, 2025 10:39am Back pain affecting acute January 14, 2025 10:39am Bipolar disorder acute December 10:39am GERD (gastroesophageal reflu x disease) acute January 14, 2025 1 0:39am Major depression acute December 10:39am acute January 14, 2025 10:39am Supervision of high-risk acute January 14, 2025 1 0:39am Anxiety acute January 25, 2025 10:37am Back pain affecting acute January 25, 2025 10:37am Bipolar disorder acute January 10:37am GERD (gastroesophageal reflu x disease) acute January 25, 2025 1 0:37am Major depression acute January 10:37am acute January 25, 2025 10:37am Supervision of high-risk acute January 25, 2025 1 0:37am [facility] Work Phone: 1(145) 816-303302-20-2025 Evaluation note* Diagnosis Onset Date Resolution Status Admit Date Anxiety acute October 08, 2024 9:28am Bipolar disorder acute October 08, 2024 9:28am Major depression acute October 08, 2024 9:28am acute October 08, 2024 9:28am Supervision of high-risk acute October 08, 9:28am Dysthymia resolved October 08, 2024 9:28am Former electronic cigarette use reso lved October 08, 2024 9:28am Anxiety acute November 09 11:18am Bipolar disorder acute November 092024 11:18am Major depression acute November 092024 11:18am acute November 09 11:18am Supervision of high-risk acute November 09, 2024 11:18am Dysthymia resolved November 09 11:18am Former electronic cigarette use reso lved November 09, 2024 11:18am Anxiety acute November 19 10:52am Bipolar disorder acute November 10:52am Major depression acute November 10:52am acute November 19 10:52am Supervision of high-risk acute November 19, 2024 10:52am Dysthymia resolved November 19 10:52am Former electronic cigarette use reso lved November 19, 2024 10:52am Anxiety acute November 30 9:55am Bipolar disorder acute November 302024 9:55am Major depression acute November 302024 9:55am acute November 30 9:55am Supervision of high-risk acute November 30, 2024 9:55am Dysthymia resolved November 30 9:55am Former electronic cigarette use reso lved November 30, 2024 9:55am Anxiety acute December 01 5:30pm Bipolar disorder acute December 012024 5:30pm Major depression acute December 012024 5:30pm acute December 01 5:30pm Supervision of high-risk acute December 01, 2024 5:30pm Dysthymia resolved December 01 5:30pm Former electronic cigarette use reso lved December 01, 2024 5:30pm Gastroenteritis resolved November 5:30pm Anxiety acute December 18, 2024 9:34am Bipolar disorder acute December 18, 2024 9:34am GERD (gastroesophageal reflu x disease) acute December 18, 2024 9: 34am Major depression acute December 18, 2024 9:34am acute December 18, 2024 9:34am Supervision of high-risk acute December 18, 2024 9: 34am Anxiety acute December 20, 2024 4:50pm Back pain affecting acute December 20, 2024 4:50pm Bipolar disorder acute December 20, 2024 4:50pm GERD (gastroesophageal reflu x disease) acute December 20, 2024 4: 50pm Major depression acute May 4th, 2025 4:50pm acute December 20, 2024 4:50pm Supervision of high-risk acute December 20, 2024 4: 50pm Anxiety acute December 28, 2024 1:50pm Back pain affecting acute December 28, 2024 1:50pm Bipolar disorder acute December 1:50pm GERD (gastroesophageal reflu x disease) acute December 28, 2024 1 :50pm Major depression acute December 1:50pm acute December 28, 2024 1:50pm Supervision of high-risk acute December 28, 2024 1 :50pm Anxiety acute January 14, 2025 10:39am Back pain affecting acute January 14, 2025 10:39am Bipolar disorder acute December 10:39am GERD (gastroesophageal reflu x disease) acute January 14, 2025 1 0:39am Major depression acute December 10:39am acute January 14, 2025 10:39am Supervision of high-risk acute January 14, 2025 1 0:39am Anxiety acute January 25, 2025 10:37am Back pain affecting acute January 25, 2025 10:37am Bipolar disorder acute January 10:37am GERD (gastroesophageal reflu x disease) acute January 25, 2025 1 0:37am Major depression acute January 10:37am acute January 25, 2025 10:37am Supervision of high-risk acute January 25, 2025 1 0:37am Anxiety acute February 05 11:35am Back pain affecting acute February 05, 2025 11:35am Bipolar disorder acute January 11:35am GERD (gastroesophageal reflu x disease) acute February 05, 2025 11:35am Major depression acute January 11:35am acute February 05 11:35am Supervision of high-risk acute February 05, 2025 11:35am [facility] Work Phone: [phone] [id number] Evaluation note* Diagnosis Onset Date Resolution Status Admit Date Anxiety acute August 13, 2024 8:30am Bipolar disorder acute August 13, 2024 8:30am Dysthymia acute August 13, 2024 8:30am Former electronic cigarette use acute August 13 8:30am Major depression acute August 13, 2024 8:30am acute August 13, 2024 8:30am Supervision of high-risk acute August 13 8:30am Anxiety acute August 24 10:34am Bipolar disorder acute August 24, 2024 10:34am Dysthymia acute August 24 10:34am Former electronic cigarette use acute August 24 10:34am Major depression acute August 24, 2024 10:34am acute August 24 10:34am Supervision of high-risk acute August 24 10:34am Anxiety acute September 11, 2024 11:02am Bipolar disorder acute September 11, 2024 11:02am Dysthymia acute September 11, 2024 11:02am Former electronic cigarette use acute September 11 11:02am Major depression acute September 11, 2024 11:02am acute September 11, 2024 11:02am Supervision of high-risk acute September 11 11:02am Anxiety acute October 08, 2024 9:28am Bipolar disorder acute October 08, 2024 9:28am Dysthymia acute October 08, 2024 9:28am Former electronic cigarette use acute October 08 9:28am Major depression acute October 08, 2024 9:28am acute October 08, 2024 9:28am Supervision of high-risk acute October 08 9:28am Anxiety acute November 09 11:18am Bipolar disorder acute November 092024 11:18am Dysthymia acute November 09 11:18am Former electronic cigarette use acute November 09, 2024 11:18am Major depression acute November 092024 11:18am acute November 09 11:18am Supervision of high-risk acute November 09, 2024 11:18am Anxiety acute November 19 10:52am Bipolar disorder acute November 10:52am Dysthymia acute November 19 10:52am Former electronic cigarette use acute November 19, 2024 10:52am Major depression acute November 10:52am acute November 19 10:52am Supervision of high-risk acute November 19, 2024 10:52am Anxiety acute November 30 9:55am Bipolar disorder acute November 302024 9:55am Dysthymia acute November 30 9:55am Former electronic cigarette use acute November 30, 2024 9:55am Major depression acute November 302024 9:55am acute November 30 9:55am Supervision of high-risk acute November 30, 2024 9:55am [facility] Work Phone: 1(286) 257-601402-03-2024 Reason for referral (narrative)* Consultation (Routine) - Authorized Specialty Diagnoses / Procedures Referred By Christian t Referred To Contact Family Medicine / Primary Care Tanesha Guevara PA-C [facility] [facility] [place] [address] Referral ID Status Reason Start Date Expiration Date Visits Requested Visits Authorized [id number] Authorized Specialty Services Required 09/21/2023 09/20/2024 1 1 [facility] Work Phone: [phone]) 160-833812-12-2023 Miscellaneous Notes* Telephone Encounter - Lizet Mcfadden LPCC - 07/30/2023 10:13 AM EST Behavioral Health Social Work Progress Note Patient identified for [facility] from: PCP Reason for referral: Resources Behavioral Health Resources: Psychiatry med management [facility] encounter type: Telephone Encounter Attempts to Outreach: 1 attempt Patient Discharged?: No Patient reported that caregiver was able to meet their needs today?: N/A Phone call placed today [facility] Left my contact information and brief nature of call. Initial outreach also completed via [employer] offering patient [facility] assessment. GREG Balderas-S July 30, 2023 documented in this encounterFirelands Regional Medical Center06-07-2023 Miscellaneous Notes* Telephone Encounter - Fela Fraga RN - 01/23/2023 6:55 PM EDT Spoke with patient. She states her [place] SPIRAL BINDER did call her back , reviewed her symptoms and prescribed Progesterone. Fela Fraga RN * Telephone Encounter - Yee Sanchez APRN.CNP - 01/23/2023 6:02 PM EDT Schedule with [facility] gynecology, she does not need a referral Yee Sanchez APRN.HAJA * Telephone Encounter - Fela Fraga RN - 01/23/2023 4:07 PM EDT See triage note on 01/21. Patient calling to say she has a recurrence of and an increase in vaginalbleeding today with a few small clots. She says she called her SPIRAL BINDER @ [place] and spoke with a nurse. She was instructed to call her PCP. She is willing to see SPIRAL BINDER here at [facility]. Fela Fraga RN documented in this encounterFirelands Regional Medical Center06-05-2023 Miscellaneous Notes* Telephone Encounter - Deb Awad RN - 01/21/2023 7:45 PM EDT Reason for Call: Had one episode of slight vaginal bleeding a short time ago. Her period ended a week ago. Outcome: Suggested that she see her doctor if bleeding continues. She will call her gas combustion engineer doctor at [facility] to discuss with him. Reason for Disposition [...] as 3 out of 10, saw an gas combustion engineer recently and was diagnosed with an ovarian cyst. 6. : no chance of , does not use control 7. : N/A 8. HORMONES: none 9. BLOOD THINNERS: none 10. CAUSE: unknown 11. HEMODYNAMIC STATUS: feels a little weak, but just donated plasma 1 1/2 hours ago 12. OTHER SYMPTOMS:none Protocols used: Vaginal Bleeding - [id number] documented in this encounterFirelands Regional Medical Center04-14-2023 History of Present illness Narrative* Iker Morrow APRN.OFFSET LITHOGRAPHIC PRESS OPERATOR - 11/30/2022 7:45 AM EDT Images from [...] history is provided by the patient. No seismic interpreter was used. Rash Review of Systems Constitutional: [...] also not use the body wash anymore. Iker Morrow APRN.CNP documented in this encounterFirelands Regional Medical Center11-15-2022 Instructions* Patient Instructions* Barbara Ellison APRN.CNP - 07/03/2022 6:33 PM EST covid and flu test ordered You will be notified in 12-24 hours, results available on [facility] Home isolation until covid results are back [...] breath, inability to swallow. documented in this encounterFirelands Regional Medical Center11-15-2022 History of Present illness Narrative* Barbara Ellison APRN.CNP - 07/03/2022 6:29 PM EST Subjective The history is provided by the patient. No seismic interpreter was used. HPI Erika Pineda is a 16 year old female [...] have confirmed and edited as necessary, the [facility] Review of Systems Constitutional: Negative for [...] in 12-24 hours with results, available on [employer]hart - COVID WITH FLUA+B, ROUTINE Diagnosis and treatment plan were discussed and questions were answered to the patient's satisfaction. Pt acknowledged understanding of concepts and follow up plan. Specific signs and symptoms that would indicate the need for higher level of care were discussed indetail warranting prompt ER evaluation. Barbara Ellison APRN.HAJA documented in this encounterFirelands Regional Medical Center08-05-2022 History of Past illness Narrative* Problem Noted Date Resolved Date Infection due to Chlamydia species 03/23/2022 03/23/2022 documented as of this encounter (statuses as of 07/04/2022) [facility]08-05-[facility] History of Past illness Narrative* Problem Noted Date Resolved Date Infection due to Chlamydia species 03/23/2022 03/23/2022 documented as of this encounter (statuses as of 11/30/2022) [facility]08-[facility]-20[facility] History of Past illness Narrative* Problem Noted Date Resolved Date Infection due to Chlamydia species 03/23/2022 03/23/2022 documented as of this encounter (statuses as of 01/22/2023) [facility] History of Past illness Narrative* Problem Noted Date Resolved Date Infection due to Chlamydia species 03/23/2022 03/23/2022 documented as of this encounter (statuses as of 01/24/2023) [facility] History of Past illness Narrative* Problem Noted Date Diagnosed Date Resolved Date Infection due to Chlamydia species 03/23/2022 03/23/2022 Breakthrough bleeding 03/23/20222022 documented as of this encounter (statuses as of 07/30/2023) [facility] History of Present illness Narrative* Jorge Bearden MD - 03/23/2022 8:43 AM EDT This note was created using AwesomeHighlighterter. Subjective Patient presents with: Establish Care Anxiety: 1 year or more Erika Pineda was here for above. 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 She was seeing [place] for gynecology. PAST MEDICAL HISTORY Diagnosis Date [...] 120/78 Pulse 66 Ht 156 cm (5' 1.4) Wt 73 kg (161 lb) BMI 30.03 [...] bleeding - ICD9: 626.6, ICD10: N92.1 Seeing [place] gynecology. She will have Nexplanon removed. FDA warning discussed. - ZAFEMY 150 MCG-35 MCG/24 HR TRANSDERMAL PATCH Jorge Bearden MD documented in this encounterFirelands Regional Medical Center08-05-2022 Instructions* Patient Instructions* Jorge Bearden MD - 03/23/2022 8:41 AM EDT ASK FOR 3RD DOSE OF GARDASIL. documented in this encounterFirelands Regional Medical CenterEvalubayhealth [facility]* Diagnosis Anxiety and depression- Primary Dysthymic disorder Chronic tension-type headache, not intractable Chronic tension type headache Atrophy of skin and soft tissue Unspecified hypertrophic and atrophic condition of skin Breakthrough bleeding Metrorrhagia documented in this encounter [facility]* Diagnosis Onset Date Resolution Status Breakthrough bleeding on Nexplanon acute Pelvic pain acute [facility] Work Phone: Evaluation note* Diagnosis Onset Date Resolution Status Breakthrough bleeding on Nexplanon acute Pelvic pain acute Breakthrough bleeding on Nexplanon acute Encounter for routine gynecological examination noneactive [facility] Work Phone: Evaluation note* Diagnosis URI with cough and congestion- Primary [facility] Diagnosis Rash- Primary Rash and other nonspecific skin eruption documented in this encounter [facility]* Diagnosis Onset Date Resolution Status Irregular menstrual bleeding acute Pelvic pain acute [facility] Work Phone: Evaluation note* Diagnosis Bipolar depression (CMS/HCC)- Primary Bipolar I disorder, most recent episode (or current) depressed, unspecified documented in this encounter [facility] Work Phone: Evaluation noteNo assessment information available [facility] Work Phone: Evaluation note* Diagnosis Sore throat- Primary Acute pharyngitis URI, acute Acute upper respiratory infections of unspecified site documented in this encounter [facility] CenterHistory of Past illness Narrative* Problem Noted Date Resolved Date Infection due to Chlamydia species 03/23/2022 03/23/2022 documented as of this encounter (statuses as of 03/23/2022) [facility] CenterProgress note Author Bernarda Weber [facility] Note Date/Time January 14, 2025 11:07 am [facility] [address], [address] [place] [address] OFFICE VISIT Date of Service: 01/14/25 MR#: [id number] Acct: [id number] Name: ERIKA PINEDA Rep #: [id number] : 2005 Provider: MANINDER Weber Age/Sex: 19/F [place] [facility] Status: Signed Intake Vital Signs 08/13/24 08:33 08/13/24 09:09 12/18/24 09:39 12/28/24 14:02 01/14/25 10:44 Height 5 ft 1 in 5 ft 1 in 5 ft 1 in 5 ft 1 in 5 ft 1 in Weight: 185 lb BMI 34.9 BP 108/74 Intake Visit Reasons: 34 wk ob Chief Complaint: 34wk OB Cath Lab Required: No Is patient in pain?: No Allergies No Known Allergies Allergy (Verified 01/14/25 10:42) Medications ?Medication ?Instructions ?Recorded ?Confirmed ?Type PNV 153-FA 400 mcg-om3 35 mg-dha 1 tab PO DAILY 01/14/25 History 25 mg-epa 5 mg-fish oil chew tablet ondansetron 4 mg disintegrating 4 mg PO Q6H PRN nausea and 12/01/24 01/14/25 Rx tablet vomiting #30 tabs famotidine 20 mg tablet (Pepcid) 20 mg PO BID #60 tabs 12/18/24 01/14/25 Rx Last Menstrual Period: 05/16/24 : No Have you fallen in the past year?: No PFSH PFSH Medical History Irregular menstrual bleeding Seasonal allergies Hx of trauma Surgical History H/O oral surgery Social History adopted: No household members: family current occupational status: employed current occupation: [employer] pets and animals: Yes (Avoid litterbox) pets and animals: cat(s) and dog(s) history of recent travel: No sexually active: Yes Smoking Status: Former smoker quit date: 06/02/24 Electronic Cigarette Use: with nicotine alcohol intake: never substance use type: does not use well-balanced diet: about half the time caffeine: No eating out: 1-3 times/week during the past year weight has: remained stable what type of physical activity do you participate in: none susana/christian: None seatbelt use: always do you feel safe at home: Yes additional social history: BF Richard- [employer] History 1 Elective abortions Hx Para 0 Spontaneous abortions Hx # Term Pregnancies Ectopic pregnancies Hx # Pregnancies Multiple births # of living children HPI 34 wk ob Details: ERIKA PINEDA is a 19 year old who presents for routine OB visit. OB Visit MCKENZIE Calculator Estimated Delivery Date Method Current WG Current Estimate 02/20/25 LMP (Certain) 34w 5d Other Estimates 02/24/25 Ultrasound #1 34w 1d Expected Delivery Route/Plan abor Preferences- CB/BF classes: [] labor support person: [] labor intervention preferences: [] pain management options preferred:open to hydrotherapy, nitrous, epidural cut cord/dad catch: [] : [] PP control planned: [] discussed possible routes of delivery and associated risks: [] special requests: [] Specific Issue/Plans Covid status: [] Flu vaccine: [] Tdap vaccine: given Rhogam: [] LARC form signed: declined movement and labor precautions reviewed. Problem list reviewed and updated with the most current plan of care details and appropriate orders placed. Relevant counseling for the gestational age provided. Continue routine care and follow up unless otherwise noted in visit notes/problem list details Initial Weight: Not Recorded Date -?-?-?-?-?-?-?-?-?-?-?-?- EGA Weight BP Urine Prot -?-?-?-?-?-?-?-?-?-?-?-?- Glucose FHR FuHt Pres Dilation -?-?-?-?-?-?-?-?-?-?-?-?- Effaced St Visit Note 07/15/24 -?-?-?-?-?-?-?-?-?-?-?-?- 8w 4d 162 lb 127/78 -?-?-?-?-?-?-?-?-?-?-?-?- 181 -?-?-?-?-?-?-?-?-?-?-?-?- KW- CRL cons wit h dates. Accepts NIPT 08/13/24 -?-?-?-?-?-?-?-?-?-?-?-?- 12w 5d 162 lb 6 oz 122/71 Nega tive -?-?-?-?-?-?-?-?-?-?-?-?- Negative 163 -?-?-?-?-?-?-?-?-?-?-?-?- MH-No VB. Nause suraj snowden/sharon sent. Br US confirm FHT. PN labs today 08/24/24 -?-?-?-?-?-?-?-?-?-?-?-?- 14w 2d 163 lb 112/76 Negative -?-?-?-?-?-?-?-?-?-?-?-?- Negative 150 -?-?-?-?-?-?-?-?-?-?-?-?- SM- seen seconda ry to spotting over the weeknd seen in ER and viable IUP seen no abnormalities 09/11/24 -?-?-?-?-?-?-?-?-?-?-?-?- 16w 6d Negative -?-?-?-?-?-?-?-?-?-?-?-?- Negative 153 -?-?-?-?-?-?-?-?-?-?-?-?- KW- no vb/crampi ng. +flutters. anatomy US ordered. 10/08/24 -?-?-?-?-?-?-?-?-?-?-?-?- 20w 5d 168 lb 6 oz 107/55 -?-?-?-?-?-?-?-?-?-?-?-?- 145 20 -?-?-?-?-?-?-?-?-?-?-?-?- KW- no vb/crampi ng. good fm. anatomy scan reviewed 11/09/24 -?-?-?-?-?-?-?-?-?-?-?-?- 25w 2d 170 lb 8 oz 101/63 Nega tive -?-?-?-?-?-?-?-?-?-?-?-?- Negative 140 25 -?-?-?-?-?-?-?-?-?-?-?-?- JV- glucola inst ructions reviewed. no lof, vaginal bleeding, or dec fm. 11/19/24 -?-?-?-?-?-?-?-?-?-?-?-?- 26w 5d 174 lb 99/65 Negative -?-?-?-?-?-?-?-?-?-?-?-?- Negative 145 -?-?-?-?-?-?-?-?-?-?-?-?- KW- work in for decreased movement. no vb/lof/ctx. FHT with doppler easily found and movement noted 11/30/24 -?-?-?-?-?-?-?-?-?-?-?-?- 28w 2d 173 lb 101/68 Negative -?-?-?-?-?-?-?-?-?-?-?-?- Negative 140 28 -?-?-?-?-?-?-?-?-?-?-?-?- KW- no vb/lof/ct x. good fm. LARC today. tdap next visit. KW- no vb/lof/ctx. good fm. LARC today. tdap next visit. glucose today 12/18/24 -?-?-?-?-?-?-?-?-?-?-?-?- 30w 6d 177 lb 6 oz 107/71 -?-?-?-?-?-?-?-?-?-?-?-?- 140 31 -?-?-?-?-?-?-?-?-?-?-?-?- SM- no vb lof go od fm no regular ctx discussed labor preferences 12/28/24 -?-?-?-?-?-?-?-?-?-?-?-?- 32w 2d 180 lb 94/60 Negative -?-?-?-?-?-?-?-?-?-?-?-?- Negative 150 33 -?-?-?-?-?-?-?-?-?-?-?-?- kw- no vb/lof/ct x. good fm. FMLA papers to triage. 01/14/25 -?-?-?-?-?-?-?-?-?-?-?-?- 34w 5d 185 lb 108/74 Negative -?-?-?-?-?-?-?-?-?-?-?-?- Negative 155 34 -?-?-?-?-?-?-?-?-?-?-?-?- KW- no vb/lof/ct x. good fm. KT tape for RL pain. ACOG First Trimester First Trimester: Discussed Second Trimester Second Trimester: Signs and Symptoms of Labor, Selecting a care provider, Reproductive Life Planning & Contreception, Care Planning, Depression/Anxiety and Intimate Partner Violence; Discussed Tobacco Cessation Third Trimester Third Trimester: Pain Management Plans, Labor support person(s), Immediate Larc, Signs and Symptoms of Preeclampsia, Feeding No , Education and Family Medical Leave or Disability Forms ROS Const Reports system reviewed and no additional complaints, except as documented Eyes Reports system reviewed and no additional complaints, except as documented ENT Reports system reviewed and no additional complaints, except as documented Card Reports system reviewed and no additional complaints, except as documented Resp Reports system reviewed and no additional complaints, except as documented GI Reports system reviewed and no additional complaints, except as documented, Denies nausea and Denies vomiting Reports system reviewed and no additional complaints, except as documented Musc Reports system reviewed and no additional complaints, except as documented Skin/Breast Reports system reviewed and no additional complaints, except as documented Neuro Yes system reviewed and no additional complaints, except as documented Psych Reports system reviewed and no additional complaints, except as documented Endo Reports system reviewed and no additional complaints, except as documented Ramiro/Lymph Reports system reviewed and no additional complaints, except as documented Aller/Immun Reports system reviewed and no additional complaints, except as documented Exam Const General: cooperative, healthy appearing and no acute distress Orientation: alert, awake and oriented x3 Neck Neck: normal visual inspection and full ROM Resp Effort & Inspection: normal respiratory effort, able to speak in complete sentences and symmetric chest movement GI Inspection: normal to inspection Palpation: soft and other Other: gravid Skin General: no rashes or lesions noted Neuro General: patient alert, patient awake and patient oriented x3 Cognition: normal cognition Speech: speech normal Gait: normal gait Motor: muscle tone normal throughout Extrem General: normal to inspection and full ROM Psych Appearance: grossly normal Mental Status: mental status grossly normal Mood: congruent mood Affect: normal affect Speech and Movement: speech and movement normal Attitude: cooperative Thought Process: normal Thought Content: normal Judgment: judgment good Results POC Urinalysis 2 Dip (Clinic) Office Urine Glucose Negative Last Edit by Yana Solis on 01/14/25 10:48 Office Urine Protein Negative Last Edit by Yana Solis on 01/14/25 10:48 Coding Level of Care Code OB Routine Diagnoses Back pain affecting O99.891; M54.9 GERD (gastroesophageal reflux disease) K21.9 Supervision of high risk in second trimester O09.92 Trimester: second trimester 34 weeks gestation of Z3A.34 Weeks of gestation: 34 weeks Anxiety F41.9 Major depressive disorder, remission status unspecified, unspecified whether recurrent F32.9 Active/Remission status: remission status unspecified Major depression recurrence: unspecified whether recurrent Bipolar affective disorder, remission status unspecified F31.9 Active/Remission status: remission status unspecified Assessment and Plan Assessment and Plan (1) Back pain affecting : Status: Acute (2) GERD (gastroesophageal reflux disease): Status: Acute Comment: pepcid (3) Supervision of high-risk : Status: Acute Qualifiers: Trimester: second trimester Qualified Code(s): O09.92 - Supervision of high risk , unspecified, second trimester Comment: PRR, , MCKENZIE 02/20/25, BF [place] (4) : Status: Acute Qualifiers: Weeks of gestation: 34 weeks Qualified Code(s): Z3A.34 - 34 weeks gestation of Comment: declined NIPT & Carrier testing, nl anatomy (5) Anxiety: Status: Acute Comment: no meds, no counseling, doing well overall. wellbutrin in past. (6) Major depression: Status: Acute Qualifiers: Active/Remission status: remission status unspecified Major depression recurrence: unspecified whether recurrent Qualified Code(s): F32.9 - Major depressive disorder, single episode, unspecified (7) Bipolar disorder: Status: Acute Qualifiers: Active/Remission status: remission status unspecified Qualified Code(s): F31.9 - Bipolar disorder, unspecified Orders: Orders POC Urinalysis 2 Dip (Clinic) Today Plan Details Additional Comments: ACOG trimester education reviewed and updated. see problem list details for updated plan management information and see below for orders placed at this visit. [place] appropriate handout given. Clinical Quality Measures Falls Risk Screening/Assistive Devices Have you fallen in the past year?: No 01/14/25 7609 <Electronically signed by Bernarda fox CNM> Date _ Bernarda Weber CNM Cosigner Signature: Date (if applicable) CC: ~ [place] [facility] Work Phone: Progress note Author Lizet Flynn [facility] Note Date/Time January 25, 2025 11:07 am [facility] [address] [place] [address], [address] [place] [address] OFFICE VISIT Date of Service: 01/25/25 MR#: [id number] Acct: [id number] Name: ERIKA PINEDA Rep #: [id number] : 2005 Provider: Dr. Kenya Sood DO Age/Sex: 19/F [place] [facility] [place] Status: Signed Intake Vital Signs 08/13/24 09:09 09/11/24 11:09 01/14/25 10:44 01/25/25 10:43 01/25/25 10:45 Height 5 ft 1 in 5 ft 1 in 5 ft 1 in 5 ft 1 in 5 ft 1 in Weight: 187 lb 4 oz BMI 35.4 BP 106/62 Intake Visit Reasons: 36 wk ob Cath Lab Required: No Is patient in pain?: No Allergies No Known Allergies Allergy (Verified 01/25/25 10:43) Medications ?Medication ?Instructions ?Recorded ?Confirmed ?Type PNV 153-FA 400 mcg-om3 35 mg-dha 1 tab PO DAILY 01/25/25 History 25 mg-epa 5 mg-fish oil chew tablet ondansetron 4 mg disintegrating 4 mg PO Q6H PRN nausea and 12/01/24 01/25/25 Rx tablet vomiting #30 tabs famotidine 20 mg tablet (Pepcid) 20 mg PO BID #60 tabs 12/18/24 01/25/25 Rx Last Menstrual Period: 05/16/24 Zika: Zika virus screening: Negative : No PFSH PFSH Medical History Irregular menstrual bleeding Seasonal allergies Hx of trauma Surgical History H/O oral surgery Social History adopted: No household members: family current occupational status: employed current occupation: [employer] pets and animals: Yes (Avoid litterbox) pets and animals: cat(s) and dog(s) history of recent travel: No sexually active: Yes Smoking Status: Former smoker quit date: 06/02/24 Electronic Cigarette Use: with nicotine alcohol intake: never substance use type: does not use well-balanced diet: about half the time caffeine: No eating out: 1-3 times/week during the past year weight has: remained stable what type of physical activity do you participate in: none susana/christian: None seatbelt use: always do you feel safe at home: Yes additional social history: BF Richard- [employer] History 1 Elective abortions Hx Para 0 Spontaneous abortions Hx # Term Pregnancies Ectopic pregnancies Hx # Pregnancies Multiple births # of living children HPI 36 wk ob Details: ERIKA PINEDA is a 19 year old who presents for routine OB visit. OB Visit MCKENZIE Calculator Estimated Delivery Date Method Current WG Current Estimate 02/20/25 LMP (Certain) 36w 2d Other Estimates 02/24/25 Ultrasound #1 35w 5d Expected Delivery Route/Plan abor Preferences- CB/BF classes: [] labor support person: [] labor intervention preferences: [] pain management options preferred:open to hydrotherapy, nitrous, epidural cut cord/dad catch: [] : [] PP control planned: [] discussed possible routes of delivery and associated risks: [] special requests: [] Specific Issue/Plans Covid status: [] Flu vaccine: [] Tdap vaccine: given Rhogam: [] LARC form signed: declined movement and labor precautions reviewed. Problem list reviewed and updated with the most current plan of care details and appropriate orders placed. Relevant counseling for the gestational age provided. Continue routine care and follow up unless otherwise noted in visit notes/problem list details Initial Weight: Not Recorded Date -?-?-?-?-?-?-?-?-?-?-?-?- EGA Weight BP Urine Prot -?-?-?-?-?-?-?-?-?-?-?-?- Glucose FHR FuHt Pres Dilation -?-?-?-?-?-?-?-?-?-?-?-?- Effaced St Visit Note 07/15/24 -?-?-?-?-?-?-?-?-?-?-?-?- 8w 4d 162 lb 127/78 -?-?-?-?-?-?-?-?-?-?-?-?- 181 -?-?-?-?-?-?-?-?-?-?-?-?- KW- CRL cons wit h dates. Accepts NIPT 08/13/24 -?-?-?-?-?-?-?-?-?-?-?-?- 12w 5d 162 lb 6 oz 122/71 Nega tive -?-?-?-?-?-?-?-?-?-?-?-?- Negative 163 -?-?-?-?-?-?-?-?-?-?-?-?- MH-No VB. Nause a persists/sharon sent. Br US confirm FHT. PN labs today 08/24/24 -?-?-?-?-?-?-?-?-?-?-?-?- 14w 2d 163 lb 112/76 Negative -?-?-?-?-?-?-?-?-?-?-?-?- Negative 150 -?-?-?-?-?-?-?-?-?-?-?-?- SM- seen seconda ry to spotting over the weeknd seen in ER and viable IUP seen no abnormalities 09/11/24 -?-?-?-?-?-?-?-?-?-?-?-?- 16w 6d Negative -?-?-?-?-?-?-?-?-?-?-?-?- Negative 153 -?-?-?-?-?-?-?-?-?-?-?-?- KW- no vb/nila ng. +flutters. anatomy US ordered. 10/08/24 -?-?-?-?-?-?-?-?-?-?-?-?- 20w 5d 168 lb 6 oz 107/55 -?-?-?-?-?-?-?-?-?-?-?-?- 145 20 -?-?-?-?-?-?-?-?-?-?-?-?- KW- no vb/crampi ng. good fm. anatomy scan reviewed 11/09/24 -?-?-?-?-?-?-?-?-?-?-?-?- 25w 2d 170 lb 8 oz 101/63 Nega tive -?-?-?-?-?-?-?-?-?-?-?-?- Negative 140 25 -?-?-?-?-?-?-?-?-?-?-?-?- JV- glucola inst ructions reviewed. no lof, vaginal bleeding, or dec fm. 11/19/24 -?-?-?-?-?-?-?-?-?-?-?-?- 26w 5d 174 lb 99/65 Negative -?-?-?-?-?-?-?-?-?-?-?-?- Negative 145 -?-?-?-?-?-?-?-?-?-?-?-?- KW- work in for decreased movement. no vb/lof/ctx. FHT with doppler easily found and movement noted 11/30/24 -?-?-?-?-?-?-?-?-?-?-?-?- 28w 2d 173 lb 101/68 Negative -?-?-?-?-?-?-?-?-?-?-?-?- Negative 140 28 -?-?-?-?-?-?-?-?-?-?-?-?- KW- no vb/lof/ct x. good fm. LARC today. tdap next visit. KW- no vb/lof/ctx. good fm. LARC today. tdap next visit. glucose today 12/18/24 -?-?-?-?-?-?-?-?-?-?-?-?- 30w 6d 177 lb 6 oz 107/71 -?-?-?-?-?-?-?-?-?-?-?-?- 140 31 -?-?-?-?-?-?-?-?-?-?-?-?- SM- no vb lof go od fm no regular ctx discussed labor preferences 12/28/24 -?-?-?-?-?-?-?-?-?-?-?-?- 32w 2d 180 lb 94/60 Negative -?-?-?-?-?-?-?-?-?-?-?-?- Negative 150 33 -?-?-?-?-?-?-?-?-?-?-?-?- kw- no vb/lof/ct x. good fm. FMLA papers to triage. 01/14/25 -?-?-?-?-?-?-?-?-?-?-?-?- 34w 5d 185 lb 108/74 Negative -?-?-?-?-?-?-?-?-?-?-?-?- Negative 155 34 -?-?-?-?-?-?-?-?-?-?-?-?- KW- no vb/lof/ct x. good fm. KT tape for RL pain. 01/25/25 -?-?-?-?-?-?-?-?-?-?-?-?- 36w 2d 187 lb 4 oz 106/62 -?-?-?-?-?-?-?-?-?-?-?-?- 154 36.5 Cephalic 1.5 -?-?-?-?-?-?-?-?-?-?-?-?- 50 -2 JV- no lof , vaginal bleeding, or dec fm. gbs collected. discussed some symptoms of depression. states that people annoy me and I cry a lot she denies si/hi. Wants to start back on wellbutrin after delivery. plans to breast feed. ACOG First Trimester First Trimester: Discussed Second Trimester Second Trimester: Signs and Symptoms of Labor, Selecting a care provider, Reproductive Life Planning & Contreception, Care Planning, Depression/Anxiety and Intimate Partner Violence; Discussed Tobacco Cessation Third Trimester Third Trimester: Pain Management Plans, Labor support person(s), Immediate Larc, Signs and Symptoms of Preeclampsia, Feeding No , Education and Family Medical Leave or Disability Forms ROS Const Denies fever(s) GI Reports as per HPI and Denies abdominal pain Reports as per HPI, Denies abnormal vaginal bleeding, Denies dysuria and Denies vaginal discharge Exam Const General: healthy appearing, comfortable and no acute distress GI Inspection: normal to inspection Palpation: soft and nontender Coding Level of Care Code OB Routine Diagnoses Back pain affecting O99.891; M54.9 GERD (gastroesophageal reflux disease) K21.9 Supervision of high risk in second trimester O09.92 Trimester: second trimester 36 weeks gestation of Z3A.36 Weeks of gestation: 36 weeks Anxiety F41.9 Major depressive disorder, remission status unspecified, unspecified whether recurrent F32.9 Active/Remission status: remission status unspecified Major depression recurrence: unspecified whether recurrent Bipolar affective disorder, remission status unspecified F31.9 Active/Remission status: remission status unspecified Assessment and Plan Assessment and Plan (1) Back pain affecting : Status: Acute (2) GERD (gastroesophageal reflux disease): Status: Acute Comment: pepcid (3) Supervision of high-risk : Status: Acute Qualifiers: Trimester: second trimester Qualified Code(s): O09.92 - Supervision of high risk , unspecified, second trimester Comment: PRR, , MCKENZIE 02/20/25, BF Richard (4) : Status: Acute Qualifiers: Weeks of gestation: 36 weeks Qualified Code(s): Z3A.36 - 36 weeks gestation of Comment: declined NIPT & Carrier testing, nl anatomy (5) Anxiety: Status: Acute Comment: no meds, no counseling, doing well overall. wellbutrin in past. (6) Major depression: Status: Acute Qualifiers: Active/Remission status: remission status unspecified Major depression recurrence: unspecified whether recurrent Qualified Code(s): F32.9 - Major depressive disorder, single episode, unspecified (7) Bipolar disorder: Status: Acute Qualifiers: Active/Remission status: remission status unspecified Qualified Code(s): F31.9 - Bipolar disorder, unspecified Orders: Orders POC Urinalysis 2 Dip (Clinic) Today Culture, Group B Streptococcus Today O09.92 - Supervision of high risk , unspecified, second trimester 01/25/25 1107 <Electronically signed by Lizet Grayson DO> Date _ Lizet MarquezBennettignmichael Signature: Date (if applicable) CC: ~ [facility] Work Phone: Progress note Author Bernarda Weber [facility] Note Date/Time February 05, 2025 11:5 6am [facility] [address] [place] [address], [address] [place] [address] OFFICE VISIT Date of Service: 02/05/25 MR#: [id number] Acct: [id number] Name: ERIKA PINEDA Rep #: [id number] : 2005 Provider: MANINDER Weber Age/Sex: 19/F [place] [facility] [place] Status: Signed Intake Vital Signs 08/13/24 09:09 01/25/25 10:45 02/05/25 11:38 Height 5 ft 1 in 5 ft 1 in 5 ft 1 in Weight: 188 lb 2 oz BMI 35.5 BP 126/83 H Intake Visit Reasons: 37 wk ob Chief Complaint: 37 Week OB Cath Lab Required: No Is patient in pain?: No Allergies No Known Allergies Allergy (Verified 02/05/25 11:40) Medications ?Medication ?Instructions ?Recorded ?Confirmed ?Type PNV 153-FA 400 mcg-om3 35 mg-dha 1 tab PO DAILY 02/05/25 History 25 mg-epa 5 mg-fish oil chew tablet ondansetron 4 mg disintegrating 4 mg PO Q6H PRN nausea and 12/01/24 02/05/25 Rx tablet vomiting #30 tabs famotidine 20 mg tablet (Pepcid) 20 mg PO BID #60 tabs 12/18/24 02/05/25 Rx Last Menstrual Period: 05/16/24 Zika: Zika virus screening: Negative : No PFSH PFSH Medical History Irregular menstrual bleeding Seasonal allergies Hx of trauma Surgical History H/O oral surgery Social History adopted: No household members: family current occupational status: employed current occupation: [employer] pets and animals: Yes (Avoid litterbox) pets and animals: cat(s) and dog(s) history of recent travel: No sexually active: Yes Smoking Status: Former smoker quit date: 06/02/24 Electronic Cigarette Use: with nicotine alcohol intake: never substance use type: does not use well-balanced diet: about half the time caffeine: No eating out: 1-3 times/week during the past year weight has: remained stable what type of physical activity do you participate in: none susana/christian: None seatbelt use: always do you feel safe at home: Yes additional social history: BF Richard- [employer] History 1 Elective abortions Hx Para 0 Spontaneous abortions Hx # Term Pregnancies Ectopic pregnancies Hx # Pregnancies Multiple births # of living children HPI 37 wk ob Details: ERIKA PINEDA is a 19 year old who presents for routine OB visit. OB Visit MCKENZIE Calculator Estimated Delivery Date Method Current WG Current Estimate 02/20/25 LMP (Certain) 37w 6d Other Estimates 02/24/25 Ultrasound #1 37w 2d Expected Delivery Route/Plan abor Preferences- CB/BF classes: [] labor support person: [] labor intervention preferences: [] pain management options preferred:open to hydrotherapy, nitrous, epidural cut cord/dad catch: [] : [] PP control planned: [] discussed possible routes of delivery and associated risks: [] special requests: [] Specific Issue/Plans Covid status: [] Flu vaccine: [] Tdap vaccine: given Rhogam: [] LARC form signed: declined movement and labor precautions reviewed. Problem list reviewed and updated with the most current plan of care details and appropriate orders placed. Relevant counseling for the gestational age provided. Continue routine care and follow up unless otherwise noted in visit notes/problem list details Initial Weight: Not Recorded Date -?-?-?-?-?-?-?-?-?-?-?-?- EGA Weight BP Urine Prot -?-?-?-?-?-?-?-?-?--?-?-?- Glucose FHR FuHt Pres Dilation -?-?-?-?-?-?-?-?-?-?-?-?- Effaced St Visit Note 07/15/24 -?-?-?-?-?-?-?-?-?-?-?-?- 8w 4d 162 lb 127/78 -?-?-?-?-?-?-?-?-?-?-?-?- 181 -?-?-?-?-?-?-?-?-?-?-?-?- KW- CRL cons wit h dates. Accepts NIPT 08/13/24 -?-?-?-?-?-?-?-?-?-?-?-?- 12w 5d 162 lb 6 oz 122/71 Nega tive -?-?-?-?-?-?-?-?-?-?-?-?- Negative 163 -?-?-?-?-?-?-?-?-?-?-?-?- MH-No VB. Nause a persists/sharon sent. Br US confirm FHT. PN labs today 08/24/24 -?-?-?-?-?-?-?-?-?-?-?-?- 14w 2d 163 lb 112/76 Negative -?-?-?-?-?-?-?-?-?-?-?-?- Negative 150 -?-?-?-?-?-?-?-?-?--?-?-?- SM- seen seconda ry to spotting over the weeknd seen in ER and viable IUP seen no abnormalities 09/11/24 -?-?-?-?-?-?-?-?-?-?-?-?- 16w 6d Negative -?-?-?-?-?-?-?-?-?-?-?-?- Negative 153 -?-?-?-?-?-?-?-?-?-?-?-?- KW- no vb/crampi ng. +flutters. anatomy US ordered. 10/08/24 -?-?-?-?-?-?-?-?-?-?--?-?- 20w 5d 168 lb 6 oz 107/55 -?-?-?-?-?-?-?-?-?-?-?-?- 145 20 -?-?-?-?-?-?-?-?-?-?-?-?- KW- no vb/crampi ng. good fm. anatomy scan reviewed 11/09/24 -?-?-?-?-?-?-?-?-?-?-?-?- 25w 2d 170 lb 8 oz 101/63 Nega tive -?-?-?-?-?-?-?-?-?-?-?-?- Negative 140 25 -?-?-?-?-?-?-?-?-?-?-?-?- JV- glucola inst ructions reviewed. no lof, vaginal bleeding, or dec fm. 11/19/24 -?-?-?-?-?-?-?-?-?-?-?-?- 26w 5d 174 lb 99/65 Negative -?-?--?-?-?-?-?-?-?-?-?-?- Negative 145 -?-?-?-?-?-?-?-?-?-?-?-?- KW- work in for decreased movement. no vb/lof/ctx. FHT with doppler easily found and movement noted 11/30/24 -?-?-?-?-?-?-?-?-?-?-?-?- 28w 2d 173 lb 101/68 Negative -?-?-?-?-?-?-?-?-?-?-?-?- Negative 140 28 -?-?-?-?-?-?-?-?-?-?-?-?- KW- no vb/lof/ct x. good fm. LARC today. tdap next visit. KW- no vb/lof/ctx. good fm. LARC today. tdap next visit. glucose today 12/18/24 -?-?-?-?-?-?-?-?-?-?-?-?- 30w 6d 177 lb 6 oz 107/71 -?-?-?-?-?-?-?-?-?-?-?-?- 140 31 -?-?-?-?-?-?-?-?-?-?-?-?- SM- no vb lof go od fm no regular ctx discussed labor preferences 12/28/24 -?-?-?-?-?-?-?-?-?-?-?-?- 32w 2d 180 lb 94/60 Negative -?-?-?-?-?-?-?-?-?-?-?-?- Negative 150 33 -?-?-?-?-?-?-?-?-?-?-?-?- kw- no vb/lof/ct x. good fm. FMLA papers to triage. 01/14/25 -?-?-?-?-?-?-?-?-?-?-?-?- 34w 5d 185 lb 108/74 Negative -?-?-?-?-?-?-?-?-?-?-?-?- Negative 155 34 -?-?-?-?-?-?-?-?-?-?-?-?- KW- no vb/lof/ct x. good fm. KT tape for RL pain. 01/25/25 -?-?-?-?-?-?-?-?-?-?-?-?- 36w 2d 187 lb 4 oz 106/62 Nega tive -?-?-?-?-?-?-?-?-?-?-?-?- Negative 154 36.5 Cephalic 1 .5 -?-?-?-?-?-?-?-?-?-?-?-?- 50 -2 JV- no lof , vaginal bleeding, or dec fm. gbs collected. discussed some symptoms of depression. states that people annoy me and I cry a lot she denies si/hi. Wants to start back on wellbutrin after delivery. plans to breast feed. 02/05/25 -?-?-?-?-?-?-?-?-?-?-?-?- 37w 6d 188 lb 2 oz 126/83 -?-?-?-?-?-?-?-?-?-?-?-?- 150 38 Cephalic 2 -?-?-?-?-?-?-?-?-?-?-?-?- 70 -2 KW- no vb/ lof/ctx. good fm. doing well. would like membrane sweep at 39 weeks ACOG First Trimester First Trimester: Discussed Second Trimester Second Trimester: Signs and Symptoms of Labor, Selecting a care provider, Reproductive Life Planning & Contreception, Care Planning, Depression/Anxiety and Intimate Partner Violence; Discussed Tobacco Cessation Third Trimester Third Trimester: Pain Management Plans, Labor support person(s), Immediate Larc, Signs and Symptoms of Preeclampsia, Feeding No , Education and Family Medical Leave or Disability Forms ROS Const Reports system reviewed and no additional complaints, except as documented Eyes Reports system reviewed and no additional complaints, except as documented ENT Reports system reviewed and no additional complaints, except as documented Card Reports system reviewed and no additional complaints, except as documented Resp Reports system reviewed and no additional complaints, except as documented GI Reports system reviewed and no additional complaints, except as documented, Denies nausea and Denies vomiting Reports system reviewed and no additional complaints, except as documented Musc Reports system reviewed and no additional complaints, except as documented Skin/Breast Reports system reviewed and no additional complaints, except as documented Neuro Yes system reviewed and no additional complaints, except as documented Psych Reports system reviewed and no additional complaints, except as documented Endo Reports system reviewed and no additional complaints, except as documented Ramiro/Lymph Reports system reviewed and no additional complaints, except as documented Aller/Immun Reports system reviewed and no additional complaints, except as documented Exam Const General: cooperative, healthy appearing and no acute distress Orientation: alert, awake and oriented x3 Neck Neck: normal visual inspection and full ROM Resp Effort & Inspection: normal respiratory effort, able to speak in complete sentences and symmetric chest movement GI Inspection: normal to inspection Palpation: soft and other Other: gravid Skin General: no rashes or lesions noted Neuro General: patient alert, patient awake and patient oriented x3 Cognition: normal cognition Speech: speech normal Gait: normal gait Motor: muscle tone normal throughout Extrem General: normal to inspection and full ROM Psych Appearance: grossly normal Mental Status: mental status grossly normal Mood: congruent mood Affect: normal affect Speech and Movement: speech and movement normal Attitude: cooperative Thought Process: normal Thought Content: normal Judgment: judgment good Coding Level of Care Code OB Routine Diagnoses 37 weeks gestation of Z3A.37 Weeks of gestation: 37 weeks Supervision of high risk in second trimester O09.92 Trimester: second trimester GERD (gastroesophageal reflux disease) K21.9 Back pain affecting O99.891; M54.9 Anxiety F41.9 Major depressive disorder, remission status unspecified, unspecified whether recurrent F32.9 Active/Remission status: remission status unspecified Major depression recurrence: unspecified whether recurrent Bipolar affective disorder, remission status unspecified F31.9 Active/Remission status: remission status unspecified Assessment and Plan Assessment and Plan (1) : Status: Acute Qualifiers: Weeks of gestation: 37 weeks Qualified Code(s): Z3A.37 - 37 weeks gestation of Comment: GBS neg declined NIPT & Carrier testing, nl anatomy (2) Supervision of high-risk : Status: Acute Qualifiers: Trimester: second trimester Qualified Code(s): O09.92 - Supervision of high risk , unspecified, second trimester Comment: PRR, , MCKENZIE 02/20/25, BF Richard (3) GERD (gastroesophageal reflux disease): Status: Acute Comment: pepcid (4) Back pain affecting : Status: Acute (5) Anxiety: Status: Acute Comment: no meds, no counseling, doing well overall. wellbutrin in past. (6) Major depression: Status: Acute Qualifiers: Active/Remission status: remission status unspecified Major depression recurrence: unspecified whether recurrent Qualified Code(s): F32.9 - Major depressive disorder, single episode, unspecified (7) Bipolar disorder: Status: Acute Qualifiers: Active/Remission status: remission status unspecified Qualified Code(s): F31.9 - Bipolar disorder, unspecified Orders: Orders POC Urinalysis 2 Dip (Clinic) Today Plan Details Additional Comments: ACOG trimester education reviewed and updated. see problem list details for updated plan management information and see below for orders placed at this visit. [place] appropriate handout given. 02/05/25 0676 <Electronically signed by Bernarda fox CNM> Date _ Bernarda Weber CNM Cosigner Signature: Date (if applicable) CC: ~ [facility] Work Phone: Progress note Author Mar Quigley [facility] Note Date/Time February 12, 2025 1:45 pm [facility] [address] [place] [address], [address] [place] [address] OFFICE VISIT Date of Service: 02/12/25 MR#: [id number] Acct: [id number] Name: ERIKA PINEDA Rep #: [id number] : 2005 Provider: Dr. Ganesh Quigley MD Age/Sex: 19/F [place] [facility] [place] Status: Signed Intake Vital Signs 08/13/24 09:09 02/05/25 11:38 02/12/25 13:31 Height 5 ft 1 in 5 ft 1 in 5 ft 1 in Weight: 187 lb 4 oz BMI 35.4 BP 112/76 Intake Visit Reasons: 38 wk ob Cath Lab Required: No Is patient in pain?: No Allergies No Known Allergies Allergy (Verified 02/12/25 13:32) Medications ?Medication ?Instructions ?Recorded ?Confirmed ?Type PNV 153-FA 400 mcg-om3 35 mg-dha 1 tab PO DAILY 02/12/25 History 25 mg-epa 5 mg-fish oil chew tablet ondansetron 4 mg disintegrating 4 mg PO Q6H PRN nausea and 12/01/24 02/12/25 Rx tablet vomiting #30 tabs famotidine 20 mg tablet (Pepcid) 20 mg PO BID #60 tabs 12/18/24 02/12/25 Rx Last Menstrual Period: 05/16/24 Zika: Zika virus screening: Negative : No PFSH PFSH Medical History Irregular menstrual bleeding Seasonal allergies Hx of trauma Surgical History H/O oral surgery Social History adopted: No household members: family current occupational status: employed current occupation: [employer] pets and animals: Yes (Avoid litterbox) pets and animals: cat(s) and dog(s) history of recent travel: No sexually active: Yes Smoking Status: Former smoker quit date: 06/02/24 Electronic Cigarette Use: with nicotine alcohol intake: never substance use type: does not use well-balanced diet: about half the time caffeine: No eating out: 1-3 times/week during the past year weight has: remained stable what type of physical activity do you participate in: none susana/christian: None seatbelt use: always do you feel safe at home: Yes additional social history: BF Richard- [employer] History 1 Elective abortions Hx Para 0 Spontaneous abortions Hx # Term Pregnancies Ectopic pregnancies Hx # Pregnancies Multiple births # of living children HPI 38 wk ob Details: ERIKA PINEDA is a 19 year old who presents for routine OB visit. OB Visit MCKENZIE Calculator Estimated Delivery Date Method Current WG Current Estimate 02/20/25 LMP (Certain) 38w 6d Other Estimates 02/24/25 Ultrasound #1 38w 2d Expected Delivery Route/Plan labor Preferences- CB/BF classes: [] labor support person: [] labor intervention preferences: [] pain management options preferred:open to hydrotherapy, nitrous, epidural cut cord/dad catch: [] : [] PP control planned: [] discussed possible routes of delivery and associated risks: [] special requests: [] Specific Issue/Plans Covid status: [] Flu vaccine: [] Tdap vaccine: given Rhogam: [] LARC form signed: declined movement and labor precautions reviewed. Problem list reviewed and updated with the most current plan of care details and appropriate orders placed. Relevant counseling for the gestational age provided. Continue routine care and follow up unless otherwise noted in visit notes/problem list details Initial Weight: Not Recorded Date -?-?-?-?-?-?-?-?-?-?-?-?- EGA Weight BP Urine Prot -?-?-?-?-?-?-?-?-?-?-?-?- Glucose FHR FuHt Pres Dilation -?-?-?-?-?-?-?-?-?-?-?-?- Effaced St Visit Note 07/15/24 -?-?-?-?-?-?-?-?-?-?-?-?- 8w 4d 162 lb 127/78 -?-?-?-?-?-?-?-?-?-?-?-?- 181 -?-?-?-?-?-?-?-?-?-?-?-?- KW- CRL cons wit h dates. Accepts NIPT 08/13/24 -?-?-?-?-?-?-?-?-?-?-?-?- 12w 5d 162 lb 6 oz 122/71 Nega tive -?-?-?-?-?--?-?-?-?-?-?-?- Negative 163 -?-?-?-?-?-?-?-?-?-?-?-?- MH-No VB. Nause a persists/janellean sent. Br US confirm FHT. PN labs today 08/24/24 -?-?-?-?--?-?-?-?-?-?-?-?- 14w 2d 163 lb 112/76 Negative -?-?-?-?-?-?-?-?-?-?-?-?- Negative 150 -?-?-?-?-?-?-?-?-?-?-?-?- SM- seen seconda ry to spotting over the weeknd seen in ER and viable IUP seen no abnormalities 09/11/24 -?-?-?-?-?-?-?-?-?-?-?-?- 16w 6d Negative -?-?-?-?-?-?-?-?-?-?-?-?- Negative 153 -?-?-?-?-?-?-?-?-?-?-?-?- KW- no vb/crampi ng. +flutters. anatomy US ordered. 10/08/24 -?-?-?-?-?-?-?-?-?-?-?-?- 20w 5d 168 lb 6 oz 107/55 -?-?-?-?-?-?-?-?-?-?-?-?- 145 20 -?-?-?-?-?-?-?-?-?-?-?-?- KW- no vb/crampi ng. good fm. anatomy scan reviewed 11/09/24 -?-?-?-?-?-?-?-?-?-?-?-?- 25w 2d 170 lb 8 oz 101/63 Nega tive -?-?-?-?-?-?-?-?-?-?-?-?- Negative 140 25 -?-?-?-?-?-?-?-?-?-?-?-?- JV- glucola inst ructions reviewed. no lof, vaginal bleeding, or dec fm. 11/19/24 -?-?-?-?-?-?-?-?-?-?-?-?- 26w 5d 174 lb 99/65 Negative -?-?-?-?-?-?-?-?-?-?-?-?- Negative 145 -?-?-?-?-?-?-?-?-?-?-?-?- KW- work in for decreased movement. no vb/lof/ctx. FHT with doppler easily found and movement noted 11/30/24 -?-?-?-?-?-?-?-?-?-?-?-?- 28w 2d 173 lb 101/68 Negative -?-?-?-?-?-?-?-?-?-?-?-?- Negative 140 28 -?-?-?-?-?-?-?-?-?-?-?-?- KW- no vb/lof/ct x. good fm. LARC today. tdap next visit. KW- no vb/lof/ctx. good fm. LARC today. tdap next visit. glucose today 12/18/24 -?-?-?-?-?-?-?-?-?-?-?-?- 30w 6d 177 lb 6 oz 107/71 -?-?-?-?-?-?-?--?-?-?-?-?- 140 31 -?-?-?-?-?-?-?-?-?-?-?-?- SM- no vb lof go od fm no regular ctx discussed labor preferences 12/28/24 -?-?-?-?-?-?-?-?-?-?-?-?- 32w 2d 180 lb 94/60 Negative -?-?-?-?-?-?-?-?-?-?-?-?- Negative 150 33 -?-?-?-?-?-?-?-?-?-?-?-?- kw- no vb/lof/ct x. good fm. FMLA papers to triage. 01/14/25 -?-?-?-?-?-?-?-?-?-?-?-?- 34w 5d 185 lb 108/74 Negative -?-?-?-?-?-?-?-?-?-?-?-?- Negative 155 34 -?-?-?-?-?-?-?-?-?-?-?-?- KW- no vb/lof/ct x. good fm. KT tape for RL pain. 01/25/25 -?-?-?-?-?-?-?-?-?-?-?-?- 36w 2d 187 lb 4 oz 106/62 Nega tive -?-?-?-?-?-?-?-?-?-?-?-?- Negative 154 36.5 Cephalic 1 .5 -?-?-?-?-?-?-?-?-?-?-?-?- 50 -2 JV- no lof , vaginal bleeding, or dec fm. gbs collected. discussed some symptoms of depression. states that people annoy me and I cry a lot she denies si/hi. Wants to start back on wellbutrin after delivery. plans to breast feed. 02/05/25 -?-?-?-?-?-?-?-?-?-?-?-?- 37w 6d 188 lb 2 oz 126/83 -?-?-?-?-?-?-?-?-?-?-?-?- 150 38 Cephalic 2 -?-?-?-?-?-?-?-?-?-?-?-?- 70 -2 KW- no vb/ lof/ctx. good fm. doing well. would like membrane sweep at 39 weeks 02/12/25 -?-?-?-?-?-?-?-?-?-?-?-?- 38w 6d 187 lb 4 oz 112/76 -?-?-?-?-?-?-?-?-?-?-?-?- 140 38 Cephalic 2 -?--?-?-?-?-?-?-?-?-?-?-?- 80 -2 SM- no vb lof good fm no regular ctx ACOG First Trimester First Trimester: Discussed Second Trimester Second Trimester: Signs and Symptoms of Labor, Selecting a care provider, Reproductive Life Planning & Contreception, Care Planning, Depression/Anxiety and Intimate Partner Violence; Discussed Tobacco Cessation Third Trimester Third Trimester: Pain Management Plans, Labor support person(s), Immediate [place], Signs and Symptoms of Preeclampsia, Infant Feeding No , [place] [employer] and Family Medical Leave or Disability Forms Coding Level of Care Code OB Routine Diagnoses Back pain affecting O99.891; M54.9 GERD (gastroesophageal reflux disease) K21.9 Supervision of high risk in second trimester O09.92 Trimester: second trimester 38 weeks gestation of Z3A.38 Weeks of gestation: 38 weeks Anxiety F41.9 Major depressive disorder, remission status unspecified, unspecified whether recurrent F32.9 Active/Remission status: remission status unspecified Major depression recurrence: unspecified whether recurrent Bipolar affective disorder, remission status unspecified F31.9 Active/Remission status: remission status unspecified Assessment and Plan Assessment and Plan (1) Back pain affecting : Status: Acute (2) GERD (gastroesophageal reflux disease): Status: Acute Comment: cyn (3) Supervision of high-risk : Status: Acute Qualifiers: Trimester: second trimester Qualified Code(s): O09.92 - Supervision of high risk , unspecified, second trimester Comment: PRR, , MCKENZIE 7/5/25, girl Anette BF Richard (4) : Status: Acute Qualifiers: Weeks of gestation: 38 weeks Qualified Code(s): Z3A.38 - 38 weeks gestation of Comment: GBS neg declined NIPT & Carrier testing, nl anatomy (5) Anxiety: Status: Acute Comment: no meds, no counseling, doing well overall. wellbutrin in past. (6) Major depression: Status: Acute Qualifiers: Active/Remission status: remission status unspecified Major depression recurrence: unspecified whether recurrent Qualified Code(s): F32.9 - Major depressive disorder, single episode, unspecified (7) Bipolar disorder: Status: Acute Qualifiers: Active/Remission status: remission status unspecified Qualified Code(s): F31.9 - Bipolar disorder, unspecified Orders: Orders POC Urinalysis 2 Dip (Clinic) Today 02/12/25 1345 <Electronically signed by Mar lundberg MD> Date _ Mar Quigley MD Cosigner Signature: Date (if applicable) CC: ~ [facility] Work Phone: Progress note Author Bernarda Weber [facility] Note Date/Time February 17, 2025 9:18a [facility] [address] [place] [address], [address] [place] [address] OFFICE VISIT Date of Service: 02/17/25 MR#: [id number] Acct: [id number] Name: ERIKA PINEDA DOUGLAS Rep #: [id number] : 2005 Provider: MANINDER Weber Age/Sex: 19/F Location: [facility] [place] Status: Signed Intake Vital Signs 02/12/25 13:31 02/12/25 13:54 02/17/25 08:35 02/17/25 08:41 Height 5 ft 1 in 5 ft 1 in 5 ft 1 in 5 ft 1 in Weight: 189 lb 8 oz BMI 35.8 BP 132/84 H 121/82 H Intake Visit Reasons: 39wk ob Cath Lab Required: No Is patient in pain?: No Allergies No Known Allergies Allergy (Verified 02/17/25 08:35) Medications ?Medication ?Instructions ?Recorded ?Confirmed ?Type PNV 153-FA 400 mcg-om3 35 mg-dha 1 tab PO DAILY 02/17/25 History 25 mg-epa 5 mg-fish oil chew tablet ondansetron 4 mg disintegrating 4 mg PO Q6H PRN nausea and 12/01/24 02/17/25 Rx tablet vomiting #30 tabs famotidine 20 mg tablet (Pepcid) 20 mg PO BID #60 tabs 12/18/24 02/17/25 Rx Last Menstrual Period: 05/16/24 : No PFSH PFSH Medical History Irregular menstrual bleeding Seasonal allergies Hx of trauma Surgical History H/O oral surgery Social History adopted: No household members: family current occupational status: employed current occupation: [employer] pets and animals: Yes (Avoid litterbox) pets and animals: cat(s) and dog(s) history of recent travel: No sexually active: Yes Smoking Status: Former smoker quit date: 06/02/24 Electronic Cigarette Use: with nicotine alcohol intake: never substance use type: does not use well-balanced diet: about half the time caffeine: No eating out: 1-3 times/week during the past year weight has: remained stable what type of physical activity do you participate in: none susana/christian: None seatbelt use: always do you feel safe at home: Yes additional social history: BF Richard- [employer] History 1 Elective abortions Hx Para 0 Spontaneous abortions Hx # Term Pregnancies Ectopic pregnancies Hx # Pregnancies Multiple births # of living children HPI 39wk ob Details: ERIKA PINEDA is a 19 year old who presents for routine OB visit. OB Visit MCKENZIE Calculator Estimated Delivery Date Method Current WG Current Estimate 02/20/25 LMP (Certain) 39w 4d Other Estimates 02/24/25 Ultrasound #1 39w 0d Expected Delivery Route/Plan labor Preferences- CB/BF classes: [] labor support person: [] labor intervention preferences: [] pain management options preferred:open to hydrotherapy, nitrous, epidural cut cord/dad catch: [] : [] PP control planned: [] discussed possible routes of delivery and associated risks: [] special requests: [] Specific Issue/Plans Covid status: [] Flu vaccine: [] Tdap vaccine: given Rhogam: [] LARC form signed: declined movement and labor precautions reviewed. Problem list reviewed and updated with the most current plan of care details and appropriate orders placed. Relevant counseling for the gestational age provided. Continue routine care and follow up unless otherwise noted in visit notes/problem list details Initial Weight: Not Recorded Date -?-?-?-?-?-?-?-?-?-?-?-?- EGA Weight BP Urine Prot -?-?-?-?-?-?-?-?-?-?-?-?- Glucose FHR FuHt Pres Dilation -?-?-?-?-?-?-?-?-?-?-?-?- Effaced St Visit Note 07/15/24 -?-?-?-?-?-?-?-?-?-?-?-?- 8w 4d 162 lb 127/78 -?-?-?-?-?-?-?-?-?-?-?-?- 181 -?-?-?-?-?-?-?-?-?-?-?--?- KW- CRL cons wit h dates. Accepts NIPT 08/13/24 -?-?-?-?-?-?-?-?-?-?-?-?- 12w 5d 162 lb 6 oz 122/71 Nega tive -?-?-?-?-?-?-?-?-?-?-?-?- Negative 163 -?-?-?-?-?-?-?-?-?-?-?-?- MH-No VB. Nause a sp/sharon sent. Br US confirm FHT. PN labs today 08/24/24 -?-?-?-?-?-?-?-?-?-?-?-?- 14w 2d 163 lb 112/76 Negative -?-?-?-?-?-?-?-?-?-?-?-?- Negative 150 -?-?-?-?-?-?-?-?-?-?-?-?- SM- seen seconda ry to spotting over the weeknd seen in ER and viable IUP seen no abnormalities 09/11/24 -?-?-?-?-?-?-?-?-?-?-?-?- 16w 6d Negative -?-?-?-?-?-?-?-?-?-?-?-?- Negative 153 -?-?-?-?-?-?-?-?-?-?-?-?- KW- no vb/crampi ng. +flutters. anatomy US ordered. 10/08/24 -?-?-?-?-?-?-?-?-?-?-?-?- 20w 5d 168 lb 6 oz 107/55 -?-?-?-?-?-?-?-?-?-?-?--?- 145 20 -?-?-?-?-?-?-?-?-?-?-?-?- KW- no vb/crampi ng. good fm. anatomy scan reviewed 11/09/24 -?-?-?-?-?-?-?-?-?-?-?-?- 25w 2d 170 lb 8 oz 101/63 Nega tive -?-?-?-?-?-?-?-?-?-?-?-?- Negative 140 25 -?-?-?-?-?-?-?-?-?-?-?-?- JV- glucola inst ructions reviewed. no lof, vaginal bleeding, or dec fm. 11/19/24 -?-?-?-?-?-?-?-?-?-?-?-?- 26w 5d 174 lb 99/65 Negative -?-?-?-?-?-?-?-?-?-?-?-?- Negative 145 -?-?-?-?-?-?-?-?-?-?-?--?- KW- work in for decreased movement. no vb/lof/ctx. FHT with doppler easily found and movement noted 11/30/24 -?-?-?-?-?-?-?-?-?-?-?-?- 28w 2d 173 lb 101/68 Negative -?-?-?-?-?-?-?-?-?-?-?-?- Negative 140 28 -?-?-?-?-?-?-?-?-?-?-?-?- KW- no vb/lof/ct x. good fm. LARC today. tdap next visit. KW- no vb/lof/ctx. good fm. LARC today. tdap next visit. glucose today 12/18/24 -?-?-?-?-?-?-?-?-?-?-?-?- 30w 6d 177 lb 6 oz 107/71 -?-?-?-?-?-?-?-?-?-?-?-?- 140 31 -?-?-?-?-?-?-?-?-?-?-?-?- SM- no vb lof go od fm no regular ctx discussed labor preferences 12/28/24 -?-?-?-?-?-?-?-?-?-?-?-?- 32w 2d 180 lb 94/60 Negative -?-?-?-?-?-?-?-?-?-?-?-?- Negative 150 33 -?-?-?-?-?-?-?-?-?-?-?-?- kw- no vb/lof/ct x. good fm. FMLA papers to triage. 01/14/25 -?-?-?-?-?-?-?-?-?-?-?-?- 34w 5d 185 lb 108/74 Negative -?-?-?-?-?-?-?-?-?-?-?-?- Negative 155 34 -?-?-?-?-?-?-?-?-?-?-?-?- KW- no vb/lof/ct x. good fm. KT tape for RL pain. 01/25/25 -?-?-?-?-?-?-?-?-?-?-?-?- 36w 2d 187 lb 4 oz 106/62 Nega tive -?-?-?-?-?-?-?-?-?-?-?-?- Negative 154 36.5 Cephalic 1 .5 -?-?-?-?-?-?-?-?-?-?-?-?- 50 -2 JV- no lof , vaginal bleeding, or dec fm. gbs collected. discussed some symptoms of depression. states that people annoy me and I cry a lot she denies si/hi. Wants to start back on wellbutrin after delivery. plans to breast feed. 02/05/25 -?-?-?-?-?-?-?-?-?-?-?-?- 37w 6d 188 lb 2 oz 126/83 -?-?-?-?-?-?-?-?-?-?-?-?- 150 38 Cephalic 2 -?-?-?-?-?-?-?-?-?-?-?-?- 70 -2 KW- no vb/ lof/ctx. good fm. doing well. would like membrane sweep at 39 weeks 02/12/25 -?-?-?-?-?-?-?-?-?-?-?-?- 38w 6d 187 lb 4 oz 112/76 -?-?-?-?-?-?-?-?-?-?-?-?- 140 38 Cephalic 2 -?-?-?-?-?-?-?-?-?-?-?-?- 80 -2 SM- no vb lof good fm no regular ctx 02/17/25 -?-?-?-?-?-?-?-?-?-?-?-?- 39w 4d 189 lb 8 oz 132/84 121/82 Trace -?-?-?-?-?-?-?-?-?-?-?-?- Negative 140 40 Cephalic 3 -?-?-?-?-?-?-?-?-?-?-?-?- 80 -2 KW- no vb/ lof. having some irregular ctx x 3 days. no mtz/dizziness/blurred vision. ACOG First Trimester First Trimester: Discussed Second Trimester Second Trimester: Signs and Symptoms of Labor, Selecting a care provider, Reproductive Life Planning & Contreception, Care Planning, Depression/Anxiety and Intimate Partner Violence; Discussed Tobacco Cessation Third Trimester Third Trimester: Pain Management Plans, Labor support person(s), Immediate Larc, Signs and Symptoms of Preeclampsia, Infant Feeding No , [place] Education and Family Medical Leave or Disability Forms ROS Const Reports system reviewed and no additional complaints, except as documented Eyes Reports system reviewed and no additional complaints, except as documented ENT Reports system reviewed and no additional complaints, except as documented Card Reports system reviewed and no additional complaints, except as documented Resp Reports system reviewed and no additional complaints, except as documented GI Reports system reviewed and no additional complaints, except as documented, Denies nausea and Denies vomiting Reports system reviewed and no additional complaints, except as documented Musc Reports system reviewed and no additional complaints, except as documented Skin/Breast Reports system reviewed and no additional complaints, except as documented Neuro Yes system reviewed and no additional complaints, except as documented Psych Reports system reviewed and no additional complaints, except as documented Endo Reports system reviewed and no additional complaints, except as documented Ramiro/Lymph Reports system reviewed and no additional complaints, except as documented Aller/Immun Reports system reviewed and no additional complaints, except as documented Exam Const General: cooperative, healthy appearing and no acute distress Orientation: alert, awake and oriented x3 Neck Neck: normal visual inspection and full ROM Resp Effort & Inspection: normal respiratory effort, able to speak in complete sentences and symmetric chest movement GI Inspection: normal to inspection Palpation: soft and other Other: gravid Skin General: no rashes or lesions noted Neuro General: patient alert, patient awake and patient oriented x3 Cognition: normal cognition Speech: speech normal Gait: normal gait Motor: muscle tone normal throughout Extrem General: normal to inspection and full ROM Psych Appearance: grossly normal Mental Status: mental status grossly normal Mood: congruent mood Affect: normal affect Speech and Movement: speech and movement normal Attitude: cooperative Thought Process: normal Thought Content: normal Judgment: judgment good Results POC Urinalysis 2 Dip (Clinic) Office Urine Glucose Negative Last Edit by Naomi Hyman on 02/17/25 08:42 Office Urine Protein Trace Last Edit by Naomi Hyman on 02/17/25 08:42 Coding Level of Care Code OB Routine Diagnoses Back pain affecting O99.891; M54.9 GERD (gastroesophageal reflux disease) K21.9 Supervision of high risk in second trimester O09.92 Trimester: second trimester 39 weeks gestation of Z3A.39 Weeks of gestation: 39 weeks Anxiety F41.9 Major depressive disorder, remission status unspecified, unspecified whether recurrent F32.9 Active/Remission status: remission status unspecified Major depression recurrence: unspecified whether recurrent Bipolar affective disorder, remission status unspecified F31.9 Active/Remission status: remission status unspecified Assessment and Plan Assessment and Plan (1) Back pain affecting : Status: Acute (2) GERD (gastroesophageal reflux disease): Status: Acute Comment: pepcid (3) Supervision of high-risk : Status: Acute Qualifiers: Trimester: second trimester Qualified Code(s): O09.92 - Supervision of high risk , unspecified, second trimester Comment: PRR, , MCKENZIE 02/20/25, girl Anette BF Richard (4) : Status: Acute Qualifiers: Weeks of gestation: 39 weeks Qualified Code(s): Z3A.39 - 39 weeks gestation of Comment: GBS neg declined NIPT & Carrier testing, nl anatomy (5) Anxiety: Status: Acute Comment: no meds, no counseling, doing well overall. wellbutrin in past. (6) Major depression: Status: Acute Qualifiers: Active/Remission status: remission status unspecified Major depression recurrence: unspecified whether recurrent Qualified Code(s): F32.9 - Major depressive disorder, single episode, unspecified (7) Bipolar disorder: Status: Acute Qualifiers: Active/Remission status: remission status unspecified Qualified Code(s): F31.9 - Bipolar disorder, unspecified Orders: Orders POC Urinalysis 2 Dip (Clinic) Today Plan Details Additional Comments: ACOG trimester education reviewed and updated. see problem list details for updated plan management information and see below for orders placed at this visit. GA appropriate handout given. 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) Reason for Visit Breakthrough bleedin g on Nexplanon Pelvic pain Breakthrough bleeding on Nexplanon Encounter for routine gynecological examination Chief Complaint IRREGULAR PERIODS E-ORDER PELVIC PAIN Reason for Visit Irregular menstrual bleeding Pelvic pain Chief Complaint HEAD INJURY Chief Complaint Admit Date 12wk OB August 13, 2024 8:30am VAGINAL BLEEDING 2024 12 :26pm 14w2d ER follow up August 24, 2024 10 :34am 16 wk ob September 11, 2024 1 1:02am 20 wk ob October 08, 2024 9:28am 24 wk ob November 09, 2024 11: 18am decreased movement wk5d November 10:52am 28 wk ob/glucose November 30, 2024 9:5 5am R/O PRE E December 01, 2024 5:3 0pm Reason for Visit Admit Date Anxiety August 13, 2024 8:30am Bipolar disorder August 13, 2024 8:30am Dysthymia August 13, 2024 8:30am Former electronic cigarette use August 13, 2024 8:30am Major depression August 13, 2024 8:30am August 13, 2024 8:30am Supervision of high-risk Decem 2023 8:30am Anxiety August 24, 2024 10 :34am Bipolar disorder August 24, 2024 10 :34am Dysthymia August 24, 2024 10 :34am Former electronic cigarette use August 24, 2024 10:34am Major depression August 24, 2024 10 :34am August 24, 2024 10 :34am Supervision of high-risk Janua ry 2024 10:34am Anxiety September 11, 2024 1 1:02am Bipolar disorder September 11, 2024 1 1:02am Dysthymia September 11, 2024 1 1:02am Former electronic cigarette use September 11, 2024 11:02am Major depression September 11, 2024 1 1:02am September 11, 2024 1 1:02am Supervision of high-risk Janua ry 2024 11:02am Anxiety October 08, 2024 9:28am Bipolar disorder October 08, 2024 9:28am Dysthymia October 08, 2024 9:28am Former electronic cigarette use October 08, 2024 9:28am Major depression October 08, 2024 9:28am October 08, 2024 9:28am Supervision of high-risk Febru pat 2024 9:28am Anxiety November 09, 2024 11: 18am Bipolar disorder November 09, 2024 11: 18am Dysthymia November 09, 2024 11: 18am Former electronic cigarette use November 092024 11:18am Major depression November 09, 2024 11: 18am November 09, 2024 11: 18am Supervision of high-risk November 09, 2024 11:18am Anxiety November 19, 2024 10:5 2am Bipolar disorder November 19, 2024 10:5 2am Dysthymia November 19, 2024 10:5 2am Former electronic cigarette use November 10:52am Major depression November 19, 2024 10:5 2am November 19, 2024 10:5 2am Supervision of high-risk November 19, 2024 10:52am Anxiety November 30, 2024 9:5 5am Bipolar disorder November 30, 2024 9:5 5am Dysthymia November 30, 2024 9:5 5am Former electronic cigarette use November [id number] 9:55am Major depression November 30, 2024 9:5 5am November 30, 2024 9:5 5am Supervision of high-risk November 30, 2024 9:55am Chief Complaint Admit Date 20 wk ob October 08, 2024 9:28am 24 wk ob November 09, 2024 11: 18am decreased movement 26wk5d November 10:52am 28 wk ob/glucose November 30, 2024 9:5 5am R/O PRE E December 01, 2024 5:3 0pm R/O PRE E December 01, 2024 7:5 1pm 30 wk ob December 18, 2024 9:34am BACK PAIN December 20, 2024 4:50pm BACK PAIN December 21, 2024 8:00am 32 wk ob December 28, 2024 1:50p m 34 wk ob January 14, 2025 10:39 am Reason for Visit Admit Date Anxiety October 08, 2024 9:28am Bipolar disorder October 08, 2024 9:28am Major depression October 08, 2024 9:28am October 08, 2024 9:28am Supervision of high-risk Febru [email or web address] 9:28am Dysthymia October 08, 2024 9:28am Former electronic cigarette use October 08, 2024 9:28am Anxiety November 09, 2024 11: 18am Bipolar disorder November 09, 2024 11: 18am Major depression November 09, 2024 11: 18am November 09, 2024 11: 18am Supervision of high-risk November 09, 2024 11:18am Dysthymia November 09, 2024 11: 18am Former electronic cigarette use November 092024 11:18am Anxiety November 19, 2024 10:5 2am Bipolar disorder November 19, 2024 10:5 2am Major depression November 19, 2024 10:5 2am November 19, 2024 10:5 2am Supervision of high-risk November 19, 2024 10:52am Dysthymia November 19, 2024 10:5 2am Former electronic cigarette use November 10:52am Anxiety November 30, 2024 9:5 5am Bipolar disorder November 30, 2024 9:5 5am Major depression November 30, 2024 9:5 5am November 30, 2024 9:5 5am Supervision of high-risk November 30, 2024 9:55am Dysthymia November 30, 2024 9:5 5am Former electronic cigarette use November [id number] 9:55am Anxiety December 01, 2024 5:3 0pm Bipolar disorder December 01, 2024 5:3 0pm Major depression December 01, 2024 5:3 0pm December 01, 2024 5:3 0pm Supervision of high-risk December 01, 2024 5:30pm Dysthymia December 01, 2024 5:3 0pm Former electronic cigarette use December [id number] 5:30pm Gastroenteritis December 01, 2024 5:3 0pm Anxiety December 18, 2024 9:34am Bipolar disorder December 18, 2024 9:34am GERD (gastroesophageal reflux disease) M ay 2024 9:34am Major depression December 18, 2024 9:34am December 18, 2024 9:34am Supervision of high-risk December 182024 9:34am Anxiety December 20, 2024 4:50pm Back pain affecting December 20 4:50pm Bipolar disorder December 20, 2024 4:50pm GERD (gastroesophageal reflux disease) M ay 2024 4:50pm Major depression December 20, 2024 4:50pm December 20, 2024 4:50pm Supervision of high-risk December 202024 4:50pm Anxiety December 28, 2024 1:50p m Back pain affecting December 28, 2024 1:50pm Bipolar disorder December 28, 2024 1:50p m GERD (gastroesophageal reflux disease) M ay 2024 1:50pm Major depression December 28, 2024 1:50p m December 28, 2024 1:50p m Supervision of high-risk December 172024 1:50pm Anxiety January 14, 2025 10:39 am Back pain affecting January 14, 2025 10:39am Bipolar disorder January 14, 2025 10:39 am GERD (gastroesophageal reflux disease) M ay 2024 10:39am Major depression January 14, 2025 10:39 am January 14, 2025 10:39 am Supervision of high-risk December 182024 10:39am Chief Complaint Admit Date 20 wk ob October 08, 2024 9:28am 24 wk ob November 09, 2024 11: 18am decreased movement 26wk5d November 10:52am 28 wk ob/glucose November 30, 2024 9:5 5am R/O PRE E December 01, 2024 5:3 0pm R/O PRE E December 01, 2024 7:5 1pm 30 wk ob December 18, 2024 9:34am BACK PAIN December 20, 2024 4:50pm BACK PAIN December 21, 2024 8:00am 32 wk ob December 28, 2024 1:50p m 34 wk ob January 14, 2025 10:39 am 36 wk ob January 25, 2025 10:37 am Reason for Visit Admit Date Anxiety October 08, 2024 9:28am Bipolar disorder October 08, 2024 9:28am Major depression October 08, 2024 9:28am October 08, 2024 9:28am Supervision of high-risk Febru [email or web address] 9:28am Dysthymia October 08, 2024 9:28am Former electronic cigarette use October 08, 2024 9:28am Anxiety November 09, 2024 11: 18am Bipolar disorder November 09, 2024 11: 18am Major depression November 09, 2024 11: 18am November 09, 2024 11: 18am Supervision of high-risk November 09, 2024 11:18am Dysthymia November 09, 2024 11: 18am Former electronic cigarette use November 092024 11:18am Anxiety November 19, 2024 10:5 2am Bipolar disorder November 19, 2024 10:5 2am Major depression November 19, 2024 10:5 2am November 19, 2024 10:5 2am Supervision of high-risk November 19, 2024 10:52am Dysthymia November 19, 2024 10:5 2am Former electronic cigarette use November 10:52am Anxiety November 30, 2024 9:5 5am Bipolar disorder November 30, 2024 9:5 5am Major depression November 30, 2024 9:5 5am November 30, 2024 9:5 5am Supervision of high-risk November 30, 2024 9:55am Dysthymia November 30, 2024 9:5 5am Former electronic cigarette use November [id number] 9:55am Anxiety December 01, 2024 5:3 0pm Bipolar disorder December 01, 2024 5:3 0pm Major depression December 01, 2024 5:3 0pm December 01, 2024 5:3 0pm Supervision of high-risk December 01, 2024 5:30pm Dysthymia December 01, 2024 5:3 0pm Former electronic cigarette use December [id number] 5:30pm Gastroenteritis December 01, 2024 5:3 0pm Anxiety December 18, 2024 9:34am Bipolar disorder December 18, 2024 9:34am GERD (gastroesophageal reflux disease) M ay 2024 9:34am Major depression December 18, 2024 9:34am December 18, 2024 9:34am Supervision of high-risk December 182024 9:34am Anxiety December 20, 2024 4:50pm Back pain affecting December 20 4:50pm Bipolar disorder December 20, 2024 4:50pm GERD (gastroesophageal reflux disease) M ay 2024 4:50pm Major depression December 20, 2024 4:50pm December 20, 2024 4:50pm Supervision of high-risk December 202024 4:50pm Anxiety December 28, 2024 1:50p m Back pain affecting December 28, 2024 1:50pm Bipolar disorder December 28, 2024 1:50p m GERD (gastroesophageal reflux disease) M ay 2024 1:50pm Major depression December 28, 2024 1:50p m December 28, 2024 1:50p m Supervision of high-risk December 172024 1:50pm Anxiety January 14, 2025 10:39 am Back pain affecting January 14, 2025 10:39am Bipolar disorder January 14, 2025 10:39 am GERD (gastroesophageal reflux disease) M ay 2024 10:39am Major depression January 14, 2025 10:39 am January 14, 2025 10:39 am Supervision of high-risk December 182024 10:39am Anxiety January 25, 2025 10:37 am Back pain affecting January 25, 2025 10:37am Bipolar disorder January 25, 2025 10:37 am GERD (gastroesophageal reflux disease) [facility] 2024 10:37am Major depression January 25, 2025 10:37 am January 25, 2025 10:37 am Supervision of high-risk January 25, 2025 10:37am Chief Complaint Admit Date 20 wk ob October 08, 2024 9:28am 24 wk ob November 09, 2024 11: 18am decreased movement 26wk5d November 10:52am 28 wk ob/glucose November 30, 2024 9:5 5am R/O PRE E December 01, 2024 5:3 0pm R/O PRE E December 01, 2024 7:5 1pm 30 wk ob December 18, 2024 9:34am BACK PAIN December 20, 2024 4:50pm BACK PAIN December 21, 2024 8:00am 32 wk ob December 28, 2024 1:50p m 34 wk ob January 14, 2025 10:39 am 36 wk ob January 25, 2025 10:37 am 37 wk ob February 05, 2025 11:3 5am Reason for Visit Admit Date Anxiety October 08, 2024 9:28am Bipolar disorder October 08, 2024 9:28am Major depression October 08, 2024 9:28am October 08, 2024 9:28am Supervision of high-risk Febru [email or web address] 9:28am Dysthymia October 08, 2024 9:28am Former electronic cigarette use October 08, 2024 9:28am Anxiety November 09, 2024 11: 18am Bipolar disorder November 09, 2024 11: 18am Major depression November 09, 2024 11: 18am November 09, 2024 11: 18am Supervision of high-risk November 09, 2024 11:18am Dysthymia November 09, 2024 11: 18am Former electronic cigarette use November 092024 11:18am Anxiety November 19, 2024 10:5 2am Bipolar disorder November 19, 2024 10:5 2am Major depression November 19, 2024 10:5 2am November 19, 2024 10:5 2am Supervision of high-risk November 19, 2024 10:52am Dysthymia November 19, 2024 10:5 2am Former electronic cigarette use November 10:52am Anxiety Quin 14th, 2025 9:5 5am Bipolar disorder November 30, 2024 9:5 5am Major depression November 30, 2024 9:5 5am November 30, 2024 9:5 5am Supervision of high-risk November 30, 2024 9:55am Dysthymia November 30, 2024 9:5 5am Former electronic cigarette use November [id number] 9:55am Anxiety December 01, 2024 5:3 0pm Bipolar disorder December 01, 2024 5:3 0pm Major depression December 01, 2024 5:3 0pm December 01, 2024 5:3 0pm Supervision of high-risk December 01, 2024 5:30pm Dysthymia December 01, 2024 5:3 0pm Former electronic cigarette use December 012024 5:30pm Gastroenteritis December 01, 2024 5:3 0pm Anxiety December 18, 2024 9:34am Bipolar disorder December 18, 2024 9:34am GERD (gastroesophageal reflux disease) M ay 2024 9:34am Major depression December 18, 2024 9:34am December 18, 2024 9:34am Supervision of high-risk December 182024 9:34am Anxiety December 20, 2024 4:50pm Back pain affecting December 20, 4:50pm Bipolar disorder December 20, 2024 4:50pm GERD (gastroesophageal reflux disease) M ay 2024 4:50pm Major depression December 20, 2024 4:50pm December 20, 2024 4:50pm Supervision of high-risk December 202024 4:50pm Anxiety December 28, 2024 1:50p m Back pain affecting December 28, 2024 1:50pm Bipolar disorder December 28, 2024 1:50p m GERD (gastroesophageal reflux disease) M ay 2024 1:50pm Major depression December 28, 2024 1:50p m December 28, 2024 1:50p m Supervision of high-risk December 172024 1:50pm Anxiety January 14, 2025 10:39 am Back pain affecting January 14, 2025 10:39am Bipolar disorder January 14, 2025 10:39 am GERD (gastroesophageal reflux disease) M ay 2024 10:39am Major depression January 14, 2025 10:39 am January 14, 2025 10:39 am Supervision of high-risk December 182024 10:39am Anxiety January 25, 2025 10:37 am Back pain affecting January 25, 2025 10:37am Bipolar disorder January 25, 2025 10:37 am GERD (gastroesophageal reflux disease) J une 2024 10:37am Major depression January 25, 2025 10:37 am January 25, 2025 10:37 am Supervision of high-risk January 25, 2025 10:37am Anxiety February 05, 2025 11:3 5am Back pain affecting February 05, 2025 11:35am Bipolar disorder February 05, 2025 11:3 5am GERD (gastroesophageal reflux disease) [facility] 2024 11:35am Major depression February 05, 2025 11:3 5am February 05, 2025 11:3 5am Supervision of high-risk February 05, 2025 11:35am Chief Complaint Admit Date 24 wk ob November 09, 2024 11: 18am decreased movement [id number] November 10:52am 28 wk ob/glucose November 30, 2024 9:5 5am R/O PRE E December 01, 2024 5:3 0pm R/O PRE E December 01, 2024 7:5 1pm 30 wk ob December 18, 2024 9:34am BACK PAIN December 20, 2024 4:50pm BACK PAIN December 21, 2024 8:00am 32 wk ob December 28, 2024 1:50p m 34 wk ob January 14, 2025 10:39 am 36 wk ob January 25, 2025 10:37 am 37 wk ob February 05, 2025 11:3 5am 38 wk ob February 12, 2025 1:28 pm Reason for Visit Admit Date Anxiety November 09, 2024 11: 18am Bipolar disorder November 09, 2024 11: 18am Major depression November 09, 2024 11: 18am November 09, 2024 11: 18am Supervision of high-risk November 09, 2024 11:18am Dysthymia November 09, 2024 11: 18am Former electronic cigarette use November [id number] 11:18am Anxiety November 19, 2024 10:5 2am Bipolar disorder November 19, 2024 10:5 2am Major depression November 19, 2024 10:5 2am November 19, 2024 10:5 2am Supervision of high-risk November 19, 2024 10:52am Dysthymia November 19, 2024 10:5 2am Former electronic cigarette use November 10:52am Anxiety November 30, 2024 9:5 5am Bipolar disorder November 30, 2024 9:5 5am Major depression November 30, 2024 9:5 5am November 30, 2024 9:5 5am Supervision of high-risk November 30, 2024 9:55am Dysthymia November 30, 2024 9:5 5am Former electronic cigarette use November [id number] 9:55am Anxiety December 01, 2024 5:3 0pm Bipolar disorder December 01, 2024 5:3 0pm Major depression December 01, 2024 5:3 0pm December 01, 2024 5:3 0pm Supervision of high-risk December 01, 2024 5:30pm Dysthymia December 01, 2024 5:3 0pm Former electronic cigarette use December [id number] 5:30pm Gastroenteritis December 01, 2024 5:3 0pm Anxiety December 18, 2024 9:34am Bipolar disorder December 18, 2024 9:34am GERD (gastroesophageal reflux disease) M ay 2024 9:34am Major depression December 18, 2024 9:34am December 18, 2024 9:34am Supervision of high-risk December 182024 9:34am Anxiety December 20, 2024 4:50pm Back pain affecting December 20, 2 4:50pm Bipolar disorder December 20, 2024 4:50pm GERD (gastroesophageal reflux disease) M ay 2024 4:50pm Major depression December 20, 2024 4:50pm December 20, 2024 4:50pm Supervision of high-risk December 202024 4:50pm Anxiety December 28, 2024 1:50p m Back pain affecting December 28, 2024 1:50pm Bipolar disorder December 28, 2024 1:50p m GERD (gastroesophageal reflux disease) M ay 2024 1:50pm Major depression December 28, 2024 1:50p m December 28, 2024 1:50p m Supervision of high-risk December 172024 1:50pm Anxiety January 14, 2025 10:39 am Back pain affecting January 14, 2025 10:39am Bipolar disorder January 14, 2025 10:39 am GERD (gastroesophageal reflux disease) [facility] 2024 10:39am Major depression January 14, 2025 10:39 am January 14, 2025 10:39 am Supervision of high-risk December 182024 10:39am Anxiety January 25, 2025 10:37 am Back pain affecting January 25, 2025 10:37am Bipolar disorder January 25, 2025 10:37 am GERD (gastroesophageal reflux disease) [facility] 2024 10:37am Major depression January 25, 2025 10:37 am January 25, 2025 10:37 am Supervision of high-risk January 25, 2025 10:37am Anxiety February 05, 2025 11:3 5am Back pain affecting February 05, 2025 11:35am Bipolar disorder February 05, 2025 11:3 5am GERD (gastroesophageal reflux disease) [facility] 2024 11:35am Major depression February 05, 2025 11:3 5am February 05, 2025 11:3 5am Supervision of high-risk February 05, 2025 11:35am Anxiety February 12, 2025 1:28 pm Back pain affecting February 12, 2025 1:28pm Bipolar disorder February 12, 2025 1:28 pm GERD (gastroesophageal reflux disease) [facility] 2024 1:28pm Major depression February 12, 2025 1:28 pm February 12, 2025 1:28 pm Supervision of high-risk February 12, 2025 1:28pm Chief Complaint Admit Date 24 wk ob November 09, 2024 11: 18am decreased movement [id number] November 10:52am 28 wk ob/glucose November 30, 2024 9:5 5am R/O PRE E December 01, 2024 5:3 0pm R/O PRE E December 01, 2024 7:5 1pm 30 wk ob December 18, 2024 9:34am BACK PAIN December 20, 2024 4:50pm BACK PAIN December 21, 2024 8:00am 32 wk ob December 28, 2024 1:50p m 34 wk ob January 14, 2025 10:39 am 36 wk ob January 25, 2025 10:37 am 37 wk ob February 05, 2025 11:3 5am 38 wk ob February 12, 2025 1:28 pm 39wk ob February 17, 2025 8:33a m Reason for Visit Admit Date Anxiety November 09, 2024 11: 18am Bipolar disorder November 09, 2024 11: 18am Major depression November 09, 2024 11: 18am November 09, 2024 11: 18am Supervision of high-risk November 09, 2024 11:18am Dysthymia November 09, 2024 11: 18am Former electronic cigarette use November 092024 11:18am Anxiety November 19, 2024 10:5 2am Bipolar disorder November 19, 2024 10:5 2am Major depression November 19, 2024 10:5 2am November 19, 2024 10:5 2am Supervision of high-risk November 19, 2024 10:52am Dysthymia November 19, 2024 10:5 2am Former electronic cigarette use November 10:52am Anxiety November 30, 2024 9:5 5am Bipolar disorder November 30, 2024 9:5 5am Major depression November 30, 2024 9:5 5am November 30, 2024 9:5 5am Supervision of high-risk November 30, 2024 9:55am Dysthymia November 30, 2024 9:5 5am Former electronic cigarette use November 302024 9:55am Anxiety December 01, 2024 5:3 0pm Bipolar disorder December 01, 2024 5:3 0pm Major depression December 01, 2024 5:3 0pm December 01, 2024 5:3 0pm Supervision of high-risk December 01, 2024 5:30pm Dysthymia December 01, 2024 5:3 0pm Former electronic cigarette use December 012024 5:30pm Gastroenteritis December 01, 2024 5:3 0pm Anxiety December 18, 2024 9:34am Bipolar disorder December 18, 2024 9:34am GERD (gastroesophageal reflux disease) M ay 2024 9:34am Major depression December 18, 2024 9:34am December 18, 2024 9:34am Supervision of high-risk December 182024 9:34am Anxiety December 20, 2024 4:50pm Back pain affecting December 20, 4:50pm Bipolar disorder December 20, 2024 4:50pm GERD (gastroesophageal reflux disease) M ay 2024 4:50pm Major depression December 20, 2024 4:50pm December 20, 2024 4:50pm Supervision of high-risk December 202024 4:50pm Anxiety December 28, 2024 1:50p m Back pain affecting December 28, 2024 1:50pm Bipolar disorder December 28, 2024 1:50p m GERD (gastroesophageal reflux disease) M ay 2024 1:50pm Major depression December 28, 2024 1:50p m December 28, 2024 1:50p m Supervision of high-risk December 172024 1:50pm Anxiety January 14, 2025 10:39 am Back pain affecting January 14, 2025 10:39am Bipolar disorder January 14, 2025 10:39 am GERD (gastroesophageal reflux disease) M ay 2024 10:39am Major depression January 14, 2025 10:39 am January 14, 2025 10:39 am Supervision of high-risk December 182024 10:39am Anxiety January 25, 2025 10:37 am Back pain affecting January 25, 2025 10:37am Bipolar disorder January 25, 2025 10:37 am GERD (gastroesophageal reflux disease) [facility] 2024 10:37am Major depression January 25, 2025 10:37 am January 25, 2025 10:37 am Supervision of high-risk January 25, 2025 10:37am Anxiety February 05, 2025 11:3 5am Back pain affecting February 05, 2025 11:35am Bipolar disorder February 05, 2025 11:3 5am GERD (gastroesophageal reflux disease) [facility] 2024 11:35am Major depression February 05, 2025 11:3 5am February 05, 2025 11:3 5am Supervision of high-risk February 05, 2025 11:35am Anxiety February 12, 2025 1:28 pm Back pain affecting February 12, 2025 1:28pm Bipolar disorder February 12, 2025 1:28 pm GERD (gastroesophageal reflux disease) J une 2024 1:28pm Major depression February 12, 2025 1:28 pm February 12, 2025 1:28 pm Supervision of high-risk February 12, 2025 1:28pm Anxiety February 17, 2025 8:33a m Back pain affecting February 17, 2025 8:33am Bipolar disorder February 17, 2025 8:33a m GERD (gastroesophageal reflux disease) J [id number] 8:33am Major depression February 17, 2025 8:33a m February 17, 2025 8:33a m Supervision of high-risk February 17, 2025 8:33am Health Concerns Infection Onset Date Last Indicated Resolved Time COVID-19 Rule-Out 07/03/2022 07/03/2022 Summary Purpose Family History No Family History Records FoundNo Family History Records FoundNo Family History Records FoundNo Family History Records FoundNo Family History Records FoundNo Family History Records FoundNo Family History Records Found Advance Directives No Advanced Directives Records Found Advance Directive Response Recorded Date/ Time Living Will No August 22 2:15pm Do you have a Healthcare Power of Varnish Finisher? No 2024 2:15pm Additional Source Comments Source Comments (unrecognize d section and content) In the event this informatio n is protected by the Federal Confidentiality of Alcohol and Drug Abuse Patient Records regulations: The Federal rules restrict any use of the information to criminally investigate or prosecute any alcohol or drug abuse patient.[facility] the event this information is protected by the Federal Confidentiality of Alcohol and Drug Abuse Patient Records regulations: The Federal rules restrict any use of the information to criminally investigate or prosecute any alcohol or drug abuse patient.[facility] the event this information is protected by the Federal Confidentiality of Alcohol and Drug Abuse Patient Records regulations: The Federal rules restrict any use of the information to criminally investigate or prosecute any alcohol or drug abuse patient.[facility] the event this information is protected by the Federal Confidentiality of Alcohol and Drug Abuse Patient Records regulations: The Federal rules restrict any use of the information to criminally investigate or prosecute any alcohol or drug abuse patient.[facility] the event this information is protected by the Federal Confidentiality of Alcohol and Drug Abuse Patient Records regulations: The Federal rules restrict any use of the information to criminally investigate or prosecute any alcohol or drug abuse patient.[facility] the event this information is protected by the Federal Confidentiality of Alcohol and Drug Abuse Patient Records regulations: The Federal rules restrict any use of the information to criminally investigate or prosecute any alcohol or drug abuse patient.[facility] the event this information is protected by the Federal Confidentiality of Alcohol and Drug Abuse Patient Records regulations: The Federal rules restrict any use of the information to criminally investigate or prosecute any alcohol or drug abuse patient.[facility] the event this information is protected by the Federal Confidentiality of Alcohol and Drug Abuse Patient Records regulations: The Federal rules restrict any use of the information to criminally investigate or prosecute any alcohol or drug abuse patient.[facility] Reason for Visit (unrecogniz ed section and content) Reason Comments Establish Care Anxiety 1 year or more Reason Comments Nasal Congestion drainage, bilateral ear pain, cough and sore throat x 2-3 days Reason Comments Rash Hives, widespread x1 day, possible allergic reaction Reason Comments Vaginal Bleeding Reason Comments bh consult Reason Comments Anxiety Amb to ED with repor t of anxiety and depression. Takes Wellbutrin, but feels that her s/s have been getting worse. Called the [facility] Crisis line today and was advised to come to ER. She denies any SI or HI. Pt is calm, tearful and cooperative. Reason Comments Shortness of Breath Cough, chest congest ion, low fever x last night Reason Comments Fever Care Teams (unrecognized sec tion and content) Home Hospice Rn Relationship Specialty Start Date End Date Jorge Bearden MD [address] [place] [address] PCP - General Internal Medicine 03/23/22 Home Hospice Rn Relationship Specialty Start Date End Date Jorge Bearden MD [address] [place], [place] [id number] PCP - General Internal Medicine 03/23/22 Home Hospice Rn Relationship Specialty Start Date End Date Jorge Bearden MD [address] [place], [place] [id number] PCP - General Internal Medicine 03/23/22 Home Hospice Rn Relationship Specialty Start Date End Date Jorge Bearden MD [address] [place], [place] [id number] PCP - General Internal Medicine 03/23/22 Team Status: Active Member Role Status Dates Dr. Jorge Bearden MD Primary Care Provider Active Team Status: Inactive Member Role Status Dates Dr. Jorge Bearden MD Primary Care Provider, Refer ring Provider Active Jenny Mejia CNM Attending Provider Active Team Status: Inactive Member Role Status Dates Dr. Jorge Bearden MD Primary Care Provider Active Jenny Mejia CNM Attending Provider, Referring Pr ovider Active Team Status: Active Member Role Status Dates Dr. Jorge Bearden MD Primary Care Provider Active Jenny Mejia CNM Attending Provider, Referring Pr ovider Active Home Hospice Rn Relationship Specialty Start Date End Date Jorge Bearden MD [address] [place], [place] [id number] PCP - General Internal Medicine 03/23/22 Home Hospice Rn Relationship Specialty Start Date End Date Jorge Bearden MD [address] [place], [place] [id number] PCP - General Internal Medicine 03/23/22 Home Hospice Rn Relationship Specialty Start Date End Date Jorge Bearden MD [address] [place] [address] PCP - General 02/03/23 Team Status: Inactive Member Role Status Dates Dr. Jorge Bearden MD Primary Care Provider Active Ed Physician Provider Emergency Provider Active Home Hospice Rn Relationship Specialty Start Date End Date Jorge Bearden MD [address] [place] [address] PCP - General Internal Medicine 03/23/22 Yee Carter, ENROBER TENDER.OFFSET LITHOGRAPHIC PRESS OPERATOR [address] [place] [address] Kier Drier Internal Medicine 07/27/24 Home Hospice Rn Relationship Specialty Start Date End Date Jorge Bearden MD [address] [place] [address] PCP - General Internal Medicine 03/23/22 Yee Carter, ENROBER TENDER.OFFSET LITHOGRAPHIC PRESS OPERATOR [address] [place] [address] Kier Drier Internal Medicine 07/27/24 Team Status: Inactive Member Role Status Dates Dr. Jorge Bearden MD Primary Care Provider Active Start: August 13, 2024 End: August 13, 2024 Dr. Jorge Bearden MD Referring Provider Active Start: August 13, 2024 End: August 13, 2024 Jolene Lamar NEWSPAPER MANAGING EDITOR, NEWSPAPER MANAGING EDITOR-C Attending Provider Active Start: August 13, 2024 End: August 13, 2024 Team Status: Inactive Member Role Status Dates Dr. Jorge Bearden MD Primary Care Provider Active Start: August 13, 2024 End: August 13, 2024 Jolene [place] NEWSPAPER MANAGING EDITOR, NEWSPAPER MANAGING EDITOR-C Attending Provider Active Start: August 13, 2024 End: August 13, 2024 Jolene Lamar NEWSPAPER MANAGING EDITOR, NEWSPAPER MANAGING EDITOR-C Referring Provider Active Start: August 13, 2024 End: August 13, 2024 Team Status: Inactive Member Role Status Dates Dr. Jorge Bearden MD Primary Care Provider Active Start: 2024 End: 2024 Dr. Jonathon Vines MD Attending Provider Active Start: 2024 End: 2024 Dr. Jonathon Vines MD Emergency Provider Active Start: 2024 End: 2024 Team Status: Inactive Member Role Status Dates Dr. Jorge Bearden MD Primary Care Provider Active Start: August 24, 2024 End: August 24, 2024 Dr. Jorge Bearden MD Referring Provider Active Start: August 24, 2024 End: August 24, 2024 Dr. Mar Quigley MD Attending Provider Active Start: August 24, 2024 End: August 24, 2024 Team Status: Inactive Member Role Status Dates Dr. Jorge Bearden MD Primary Care Provider Active Start: September 11, 2024 End: September 11, 2024 Dr. Jorge Bearden MD Referring Provider Active Start: September 11, 2024 End: September 11, 2024 Bernarda Weber CNM Attending Provider Active S tart: September 11, 2024 End: September 11, 2024 Team Status: Inactive Member Role Status Dates Dr. Jorge Bearden MD Primary Care Provider Active Start: October 08, 2024 End: October 08, 2024 Dr. Jorge Bearden MD Referring Provider Active Start: October 08, 2024 End: October 08, 2024 Bernarda Weber CNM Attending Provider Active S tart: October 08, 2024 End: October 08, 2024 Team Status: Inactive Member Role Status Dates Dr. Jorge Bearden MD Primary Care Provider Active Start: November 09, 2024 End: November 09, 2024 Dr. Jorge Bearden MD Referring Provider Active Start: November 09, 2024 End: November 09, 2024 Dr. Lizet Sood DO Attending Provider Activ e Start: November 09, 2024 End: November 09, 2024 Team Status: Inactive Member Role Status Dates Dr. Jorge Bearden MD Primary Care Provider Active Start: November 19, 2024 End: November 19, 2024 Dr. Jorge Bearden MD Referring Provider Active Start: November 19, 2024 End: November 19, 2024 Bernarda Weber CNM Attending Provider Active S tart: November 19, 2024 End: November 19, 2024 Team Status: Inactive Member Role Status Dates Dr. Jorge Bearden MD Primary Care Provider Active Start: November 30, 2024 End: November 30, 2024 Dr. Jorge Bearden MD Referring Provider Active Start: November 30, 2024 End: November 30, 2024 Bernarda Weber CNM Attending Provider Active S tart: November 30, 2024 End: November 30, 2024 Team Status: Active Member Role Status Dates Dr. Jorge Bearden MD Primary Care Provider Active Start: November 30, 2024 Dr. Lizet Sood DO Attending Provider Activ e Start: November 30, 2024 Dr. Lizet Sood DO Referring Provider Activ e Start: November 30, 2024 Team Status: Inactive Member Role Status Dates Dr. Jorge Bearden MD Primary Care Provider Active Start: December 01, 2024 End: December 01, 2024 Dr. Lizet Sood DO Attending Provider Activ e Start: December 01, 2024 End: December 01, 2024 Dr. Lizet Sood DO Referring Provider Activ e Start: December 01, 2024 End: December 01, 2024 Team Status: Inactive Member Role Status Dates Dr. Jorge Bearden MD Primary Care Provider Active Start: November 30, 2024 End: November 30, 2024 Dr. Lizet Sood DO Attending Provider Activ e Start: November 30, 2024 End: November 30, 2024 Dr. Lizet Sood DO Referring Provider Activ e Start: November 30, 2024 End: November 30, 2024 Team Status: Active Member Role Status Dates Dr. Jorge Bearden MD Primary Care Provider Active Start: December 01, 2024 Dr. Lizet Sood DO Attending Provider Activ e Start: December 01, 2024 Dr. Lizet Sood DO Referring Provider Activ e Start: December 01, 2024 Dr. Lizet Sood DO Other Provider Active Start: December 01, 2024 Team Status: Inactive Member Role Status Dates Dr. Jorge Bearden MD Primary Care Provider Active Start: December 18, 2024 End: December 18, 2024 Dr. Jorge Bearden MD Referring Provider Active Start: December 18, 2024 End: December 18, 2024 Dr. Mar Quigley MD Attending Provider Active Start: December 18, 2024 End: December 18, 2024 Team Status: Inactive Member Role Status Dates Dr. Jorge Bearden MD Primary Care Provider Active Start: December 20, 2024 End: December 20, 2024 Bernarda Weber CNM Attending Provider Active S tart: December 20, 2024 End: December 20, 2024 Bernarda Weber CNM Referring Provider Active S tart: December 20, 2024 End: December 20, 2024 Team Status: Active Member Role Status Dates Dr. Jorge Bearden MD Primary Care Provider Active Start: December 21, 2024 Bernarda Weber CNM Attending Provider Active S tart: December 21, 2024 Bernarda Weber CNM Referring Provider Active S tart: December 21, 2024 Bernarda Weber CNM Other Provider Active Start : December 21, 2024 Team Status: Inactive Member Role Status Dates Dr. Jorge Bearden MD Primary Care Provider Active Start: December 28, 2024 End: December 28, 2024 Dr. Jorge Bearden MD Referring Provider Active Start: December 28, 2024 End: December 28, 2024 Bernarda Weber CNM Attending Provider Active S tart: December 28, 2024 End: December 28, 2024 Team Status: Inactive Member Role Status Dates Dr. Jorge Bearden MD Primary Care Provider Active Start: January 14, 2025 End: January 14, 2025 Dr. Jorge Bearden MD Referring Provider Active Start: January 14, 2025 End: January 14, 2025 Bernarda Weber CNM Attending Provider Active S tart: January 14, 2025 End: January 14, 2025 Team Status: Inactive Member Role Status Dates Dr. Jorge Bearden MD Primary Care Provider Active Start: January 25, 2025 End: January 25, 2025 Dr. Jorge Bearden MD Referring Provider Active Start: January 25, 2025 End: January 25, 2025 Dr. Lizet Sood DO Attending Provider Activ e Start: January 25, 2025 End: January 25, 2025 Team Status: Inactive Member Role Status Dates Dr. Jorge Bearden MD Primary Care Provider Active Start: January 25, 2025 End: January 25, 2025 Dr. Lizet Sood DO Attending Provider Activ e Start: January 25, 2025 End: January 25, 2025 Dr. Lizet Sood DO Referring Provider Activ e Start: January 25, 2025 End: January 25, 2025 Team Status: Inactive Member Role Status Dates Dr. Jorge Bearden MD Primary Care Provider Active Start: February 05, 2025 End: February 05, 2025 Dr. Jorge Bearden MD Referring Provider Active Start: February 05, 2025 End: February 05, 2025 Bernarda Weber CNM Attending Provider Active S tart: February 05, 2025 End: February 05, 2025 Team Status: Active Member Role/Relationship Status Dates Dr. Jorge Bearden MD Primary Care Provider Active Team Status: Inactive Member Role/Relationship Status Dates Dr. Jorge Bearden MD Primary Care Provider Active Start: November 09, 2024 End: November 09, 2024 Dr. Jorge Bearden MD Referring Provider Active Start: November 09, 2024 End: November 09, 2024 Dr. Lizet Sood DO Attending Provider Activ e Start: November 09, 2024 End: November 09, 2024 Team Status: Inactive Member Role/Relationship Status Dates Dr. Jorge Bearden MD Primary Care Provider Active Start: November 19, 2024 End: November 19, 2024 Dr. Jorge Bearden MD Referring Provider Active Start: November 19, 2024 End: November 19, 2024 Bernarda Weber CNM Attending Provider Active S tart: November 19, 2024 End: November 19, 2024 Team Status: Inactive Member Role/Relationship Status Dates Dr. Jorge Bearden MD Primary Care Provider Active Start: November 30, 2024 End: November 30, 2024 Dr. Jorge Bearden MD Referring Provider Active Start: November 30, 2024 End: November 30, 2024 Bernarda Weber CNM Attending Provider Active S tart: November 30, 2024 End: November 30, 2024 Team Status: Inactive Member Role/Relationship Status Dates Dr. Jorge Bearden MD Primary Care Provider Active Start: November 30, 2024 End: November 30, 2024 Dr. Lizet Sood DO Attending Provider Activ e Start: November 30, 2024 End: November 30, 2024 Dr. Lizet Sood DO Referring Provider Activ e Start: November 30, 2024 End: November 30, 2024 Team Status: Inactive Member Role/Relationship Status Dates Dr. Jorge Bearden MD Primary Care Provider Active Start: December 01, 2024 End: December 01, 2024 Dr. Lizet Sood DO Attending Provider Activ e Start: December 01, 2024 End: December 01, 2024 Dr. Lizet Sood DO Referring Provider Activ e Start: December 01, 2024 End: December 01, 2024 Team Status: Active Member Role/Relationship Status Dates Dr. Jorge Bearden MD Primary Care Provider Active Start: December 01, 2024 Dr. Lizet Sood DO Attending Provider Activ e Start: December 01, 2024 Dr. Lizet Sood DO Referring Provider Activ e Start: December 01, 2024 Dr. Lizet Sood DO Other Provider Active Start: December 01, 2024 Team Status: Inactive Member Role/Relationship Status Dates Dr. Jorge Bearden MD Primary Care Provider Active Start: December 18, 2024 End: December 18, 2024 Dr. Jorge Bearden MD Referring Provider Active Start: December 18, 2024 End: December 18, 2024 Dr. Mar Quigley MD Attending Provider Active Start: December 18, 2024 End: December 18, 2024 Team Status: Inactive Member Role/Relationship Status Dates Dr. Jorge Bearden MD Primary Care Provider Active Start: December 20, 2024 End: December 20, 2024 Bernarda Weber CNM Attending Provider Active S tart: December 20, 2024 End: December 20, 2024 Bernarda Weber CNM Referring Provider Active S tart: December 20, 2024 End: December 20, 2024 Team Status: Active Member Role/Relationship Status Dates Dr. Jorge Bearden MD Primary Care Provider Active Start: December 21, 2024 Bernarda Weber CNM Attending Provider Active S tart: December 21, 2024 Bernarda Weber CNM Referring Provider Active S tart: December 21, 2024 Bernarda Weber CNM Other Provider Active Start : December 21, 2024 Team Status: Inactive Member Role/Relationship Status Dates Dr. Jorge Bearden MD Primary Care Provider Active Start: December 28, 2024 End: December 28, 2024 Dr. Jorge Bearden MD Referring Provider Active Start: December 28, 2024 End: December 28, 2024 Bernarda Weber CNM Attending Provider Active S tart: December 28, 2024 End: December 28, 2024 Team Status: Inactive Member Role/Relationship Status Dates Dr. Jorge Bearden MD Primary Care Provider Active Start: January 14, 2025 End: January 14, 2025 Dr. Jorge Bearden MD Referring Provider Active Start: January 14, 2025 End: January 14, 2025 Bernarda Weber CNM Attending Provider Active S tart: January 14, 2025 End: January 14, 2025 Team Status: Inactive Member Role/Relationship Status Dates Dr. Jorge Bearden MD Primary Care Provider Active Start: January 25, 2025 End: January 25, 2025 Dr. Jorge Bearden MD Referring Provider Active Start: January 25, 2025 End: January 25, 2025 Dr. Lizet Sood DO Attending Provider Activ e Start: January 25, 2025 End: January 25, 2025 Team Status: Inactive Member Role/Relationship Status Dates Dr. Jorge Bearden MD Primary Care Provider Active Start: January 25, 2025 End: January 25, 2025 Dr. Lizet Sood DO Attending Provider Activ e Start: January 25, 2025 End: January 25, 2025 Dr. Lizet Sood DO Referring Provider Activ e Start: January 25, 2025 End: January 25, 2025 Team Status: Inactive Member Role/Relationship Status Dates Dr. Jorge Bearden MD Primary Care Provider Active Start: February 05, 2025 End: February 05, 2025 Dr. Jorge Bearden MD Referring Provider Active Start: February 05, 2025 End: February 05, 2025 Bernarda Weber CNM Attending Provider Active S tart: February 05, 2025 End: February 05, 2025 Team Status: Inactive Member Role/Relationship Status Dates Dr. Jorge Bearden MD Primary Care Provider Active Start: February 12, 2025 End: February 12, 2025 Dr. Jorge Bearden MD Referring Provider Active Start: February 12, 2025 End: February 12, 2025 Dr. Mar Quigley MD Attending Provider Active Start: February 12, 2025 End: February 12, 2025 Team Status: Inactive Member Role/Relationship Status Dates Dr. Jorge Bearden MD Primary Care Provider Active Start: November 09, 2024 End: November 09, 2024 Dr. Jorge Bearden MD Referring Provider Active Start: November 09, 2024 End: November 09, 2024 Dr. Lizet Sood DO Attending Provider Activ e Start: November 09, 2024 End: November 09, 2024 Team Status: Inactive Member Role/Relationship Status Dates Dr. Jorge Bearden MD Primary Care Provider Active Start: November 19, 2024 End: November 19, 2024 Dr. Jorge Bearden MD Referring Provider Active Start: November 19, 2024 End: November 19, 2024 Bernarda Weber CNM Attending Provider Active S tart: November 19, 2024 End: November 19, 2024 Team Status: Inactive Member Role/Relationship Status Dates Dr. Jorge Bearden MD Primary Care Provider Active Start: November 30, 2024 End: November 30, 2024 Dr. Jorge Bearden MD Referring Provider Active Start: November 30, 2024 End: November 30, 2024 Bernarda Weber CNM Attending Provider Active S tart: November 30, 2024 End: November 30, 2024 Team Status: Inactive Member Role/Relationship Status Dates Dr. Jorge Bearden MD Primary Care Provider Active Start: November 30, 2024 End: November 30, 2024 Dr. Lizet Sood DO Attending Provider Activ e Start: November 30, 2024 End: November 30, 2024 Dr. Lizet Sood DO Referring Provider Activ e Start: November 30, 2024 End: November 30, 2024 Team Status: Inactive Member Role/Relationship Status Dates Dr. Jorge Bearden MD Primary Care Provider Active Start: December 01, 2024 End: December 01, 2024 Dr. Lizet Sood DO Attending Provider Activ e Start: December 01, 2024 End: December 01, 2024 Dr. Lizet Sood DO Referring Provider Activ e Start: December 01, 2024 End: December 01, 2024 Team Status: Active Member Role/Relationship Status Dates Dr. Jorge Bearden MD Primary Care Provider Active Start: December 01, 2024 Dr. Lizet Sood DO Attending Provider Activ e Start: December 01, 2024 Dr. Lizet Sood DO Referring Provider Activ e Start: December 01, 2024 Dr. Lizet Sood DO Other Provider Active Start: December 01, 2024 Team Status: Inactive Member Role/Relationship Status Dates Dr. Jorge Bearden MD Primary Care Provider Active Start: December 18, 2024 End: December 18, 2024 Dr. Jorge Bearden MD Referring Provider Active Start: December 18, 2024 End: December 18, 2024 Dr. Mar Quigley MD Attending Provider Active Start: December 18, 2024 End: December 18, 2024 Team Status: Inactive Member Role/Relationship Status Dates Dr. Jorge Bearden MD Primary Care Provider Active Start: December 20, 2024 End: December 20, 2024 Bernarda Weber CNM Attending Provider Active S tart: December 20, 2024 End: December 20, 2024 Bernarda Weber CNM Referring Provider Active S tart: December 20, 2024 End: December 20, 2024 Team Status: Active Member Role/Relationship Status Dates Dr. Jorge Bearden MD Primary Care Provider Active Start: December 21, 2024 Bernarda Weber CNM Attending Provider Active S tart: December 21, 2024 Bernarda Weber CNM Referring Provider Active S tart: December 21, 2024 Bernarda Weber CNM Other Provider Active Start : December 21, 2024 Team Status: Inactive Member Role/Relationship Status Dates Dr. Jorge Bearden MD Primary Care Provider Active Start: December 28, 2024 End: December 28, 2024 Dr. Jorge Bearden MD Referring Provider Active Start: December 28, 2024 End: December 28, 2024 Bernarda Weber CNM Attending Provider Active S tart: December 28, 2024 End: December 28, 2024 Team Status: Inactive Member Role/Relationship Status Dates Dr. Jorge Bearden MD Primary Care Provider Active Start: January 14, 2025 End: January 14, 2025 Dr. Jorge Bearden MD Referring Provider Active Start: January 14, 2025 End: January 14, 2025 Bernarda Weber CNM Attending Provider Active S tart: January 14, 2025 End: January 14, 2025 Team Status: Inactive Member Role/Relationship Status Dates Dr. Jorge Bearden MD Primary Care Provider Active Start: January 25, 2025 End: January 25, 2025 Dr. Jorge Bearden MD Referring Provider Active Start: January 25, 2025 End: January 25, 2025 Dr. Lizet Sood DO Attending Provider Activ e Start: January 25, 2025 End: January 25, 2025 Team Status: Inactive Member Role/Relationship Status Dates Dr. Jorge Bearden MD Primary Care Provider Active Start: January 25, 2025 End: January 25, 2025 Dr. Lizet Sood DO Attending Provider Activ e Start: January 25, 2025 End: January 25, 2025 Dr. Lizet Sood DO Referring Provider Activ e Start: January 25, 2025 End: January 25, 2025 Team Status: Inactive Member Role/Relationship Status Dates Dr. Jorge Bearden MD Primary Care Provider Active Start: February 05, 2025 End: February 05, 2025 Dr. Jorge Bearden MD Referring Provider Active Start: February 05, 2025 End: February 05, 2025 Bernarda Weber CNM Attending Provider Active S tart: February 05, 2025 End: February 05, 2025 Team Status: Inactive Member Role/Relationship Status Dates Dr. Jorge Bearden MD Primary Care Provider Active Start: February 12, 2025 End: February 12, 2025 Dr. Jorge Bearden MD Referring Provider Active Start: February 12, 2025 End: February 12, 2025 Dr. Mar Quigley MD Attending Provider Active Start: February 12, 2025 End: February 12, 2025 Team Status: Inactive Member Role/Relationship Status Dates Dr. Jorge Bearden MD Referring Provider Active Start: February 17, 2025 End: February 17, 2025 Bernarda Weber CNM Attending Provider Active S tart: February 17, 2025 End: February 17, 2025 Goals (unrecognized section and content) Goals may be documented in a n alternate sectionGoals may be documented in an alternate sectionGoals may be documented in an alternate sectionGoals may be documented in an alternate sectionGoals may be documented in an alternate sectionGoals may be documented in an alternate sectionGoals may be documented in an alternate sectionGoals may be documented in an alternate sectionGoals may be documented in an alternate sectionGoals may be documented in an alternate sectionGoals may be documented in an alternate sectionGoals may be documented in an alternate sectionGoals may be documented in an alternate sectionGoals may be documented in an alternate section INFORMATION SOURCE (unrecogn ized section and content) DATE CREATED AUTHOR 07/09/2022 [facility] DATE CREATED AUTHOR AUTHOR'S ORGANIZ ATION 04/11/2023 [facility] DATE CREATED AUTHOR AUTHOR'S ORGANIZ ATION 09/28/2023 [facility] DATE CREATED AUTHOR AUTHOR'S ORGANIZ ATION 09/25/2024 DATE CREATED AUTHOR AUTHOR'S ORGANIZ ATION 10/12/2024 [facility] DATE CREATED AUTHOR AUTHOR'S ORGANIZ ATION 10/19/2024 [facility] DATE CREATED AUTHOR AUTHOR'S ORGANIZ ATION 02/19/2025 [facility] <item><item> Privacy Markings (unrecogniz ed section and [...] BE BASED ON THE PRIMARY CLINICAL RECORDS. [employer] [facility] provides no warranty or guarantee of the accuracy or completeness of information in this document.
[2025-02-20 15:08] LABS: ROM Internal Control Test YES-OK TO RESULT pt. (Internal QC); ROM Patient Test Negative (Negative)
[2025-02-20 15:09] LABS: Record Kit Lot#, ROM+ K3358
--- OUTSIDE RECORDS SUMMARY | 2025-02-20 15:35 | XMS RPT_ITS | CCD ---
Author Organization [facility] Care Team Providers Care Senior Talent Acquisition Specialist Name Role Phone Jorge Bearden MD Primary Care Provider [phone] Care Physician, No Primary Primary Care Provider Unavailable Care Physician, No Primary Referring Provider Un available Willard GOMEZ, HERI Fernández Attending Provider Dr. Mar Quigley Attending Provider Dr. Jorge Bearden Primary Care Provider Dr. Lizet Sood Attending Provider Jorge Bearden MD Primary Care Provider Jorge Bearden MD Primary Care Provider Dr. Jorge Bearden Primary Care Provider Dr. Jorge Bearden Referring Provider MANINDER Mejia Attending Provider Jorge Bearden Unavailable [phone] Feroz Martinez Unavailable Philip Ren Unavailable Unavailable Dr. Philip Ren Attending Unavaila Dr. Jorge Ulrich Primary Care Unavailable Dr. Feroz Martinez Attending Unavail able Dr. Jorge Bearden Primary Care Unavailable Jorge Bearden MD Primary Care Provider JORGE BEARDEN Primary Care Unavailable TANESHA OSEGUERA Attending Unavailable JORGE BEARDEN Primary Care Unavailable BERNARDA WEBER Referring Unavailable Jorge Bearden MD Primary Care Provider [phone] [facility] SUPERINTENDENT COMPRESSOR STATIONS.LITHOGRAPH PRINTER, Yee M Unavailable SELF Referring Unavailable JORGE BEARDEN H Primary Care Unavailable GEORGE WATSON DO Attending Unavailable GEORGE WATSON DO Primary Care Unavailable GEORGE WATSON DO Admitting Unavailable Suleiman AGUAYO, Dr. Patel Primary Care Provider Suleiman AGUAYO, Dr. Patel Referring Provider Willard GENERAL INTERNAL MEDICINE DOCTOR-C, Jolene Attending Provider Willard GENERAL INTERNAL MEDICINE DOCTOR-C, Jolene Referring Provider Jasmyn AGUAYO, Dr. Holt [...] Dann AGUAYO, Dr. Manuel Attending Provider [phone] Bernarda Weber CNM Referring Provider [phone] Bernarda Weber CNM Other Provider [phone] Dr. Jorge Bearden MD Primary Care Provider Suleiman AGUAYO, Dr. Patel Referring Provider Lance DICKENS, Bernarda Attending Provider [phone] Willard GENERAL INTERNAL MEDICINE DOCTOR, Jolene Attending Unavailable Jorge Bearden Referring Unavailable [...] Unavailabl e Bearden, Jorge Primary Care Unavailable [place] GENERAL INTERNAL MEDICINE DOCTOR, Jolene Referring Unavailable Willard GENERAL INTERNAL MEDICINE DOCTOR, Jolene Attending Unavailable Bearden, Jorge Primary Care Unavailable Bernarda Weber Attending Unavailable Bearden, Jorge Primary Care Unavailable Bearden, Jorge Referring Unavailable Mar Quigley Attending Unavailable Bearden, Jorge Referring Unavailable Bearden, Jorge Primary Care Unavailable Bernarda Weber Attending Unavailable Bearden, Jorge Primary Care Unavailable Bernarda Weber Consulting Unavailable Bernarda Weber Referring Unavailable Willard GENERAL INTERNAL MEDICINE DOCTOR, Jolene Attending Unavailable Bearden, Jorge Primary Care [...] Unavailabl e Bearden, Jorge Primary Care Unavailable Joanthon Vines Attending Unavailable Bearden, Jorge Primary Care Unavailable [place] GENERAL INTERNAL MEDICINE DOCTOR, Jolene Referring Unavailable Willard GENERAL INTERNAL MEDICINE DOCTOR, Jolene Attending Unavailable Bearden, Jorge Primary Care [...] days. 10 capsule 10/11/2024 10/16/2024 Active Pnv No.909-Ic-Pv4-Dha- Epa-Fish 400 mcg-35 mg- 25 mg-5 mg tablet,chewable (8 sources) Start: 07-03-2024 Pnv No.370-Ff-Fp9-Dha- Epa-Fish 400 mcg-35 mg- 25 mg-5 mg tablet,chewable Active 1 {tbl} PO DAILY July 03, 2024 1:00am Start: 07-03-2024 Pnv No.153-Fa- Xw4-Zmx-Aph-Fish 400 mcg-35 mg- 25 mg-5 mg tablet,chewable [...] 1 tablet by mouth once daily. from [facility] 0 09/27/2022 Active Comment on above: Take 1 tablet by alisson once daily. from [facility] azithromycin 500 mg oral tablet (14 sources) [...] oral solution (1 source) alpha-Adrenergic Agonist, Uncompetitive T-hiacid-R-aspartat e Receptor Antagonist, Sigma-1 Agonist Start: 07-03-2022 [...] Agent, Anti-coagulant Start: 04-26-2022 End: 01-16-2023 Lactic Mlza-Yydhwj-Maaagrzwa (Phexxi) 1.8-1-0.4 % gel Discontinued 1 NMA VAGINAL per package directions 60 April 26, 2022 12:00am January 16, 2023 2:35pm insert 1 applicatorful vaginally within 1 hour before each act of vaginal intercourse Start: 04-26-2022 End: 01-16-2023 Lactic Hzoc-Gjfrou-Xkcsejnie (Phexxi) 1.8-1-0.4 % gel Discontinued 1 APPFUL [...] 03, 2024 9:59am 168 hr ethinyl estradiol 0.18858 mg/hr / norelgestromin 0.31190 mg/hr transdermal system (14 sources) Progestin, Estrogen [...] 1 tablet by mouth once daily. from [facility] 0 09/27/2022 Active Comment on above: Take 1 tablet by alisson once daily. from [facility] lithium carbonate 300 mg extended release oral tablet (8 sources) Star t: 05-08 End: 06-19 24 take 1 tablet by mouth once daily [place]renfeld Carbonate 300 mg tablet extended release Discontinued [...] tablet by mouth daily at bedtime. from [facility] 0 09/27/2022 Active Comment on above: Take 1 tablet by alisson th daily at bedtime. from [facility] 24 hr venlafaxine 75 mg extended release oral capsule (1 source) Serotonin and Norepinephrine Reuptake Inhibitor Start: take 1 capsule by mouth once daily venlafaxine ER (EFFEXOR XR) 75 mg 24 hr capsule Take 1 capsule by mouth once daily. from [facility] 0 09/27/2022 Active Comment on above: Take 1 capsule by mo [facility] once daily. from [facility] vitamin b12 1 mg oral capsule (14 [...] Test Name Value Interpretation Reference Range Facility Global President Office Visit Reporton 02-17-2025 Global President Office Visit Report [facility] [address], [address] [place] [address] OFFICE VISIT Date of Service: 02/17/25 MR#: [id number] Acct: [id number] Name: ERIKA PINEDA Rep #: [id number] : 2005 Provider: MANINDER Norris ams Age/Sex: 19/F Location: [facility] [place].[facility] Status: Signed Intake Vital Signs 02/12/25 13:31 02/12/25 13:54 02/17/25 08:35 02/17/25 08:41 Height 5 ft 1 in 5 ft 1 in 5 ft 1 in 5 ft 1 in Weight: 189 lb 8 oz BMI 35.8 BP 132/84 H 121/82 H Intake Visit Reasons: 39wk ob Mule Operator Required: No Is patient in pain?: No [...] family current occupational status: employed current occupation: [employer] pets and animals: Yes (Avoid litterbox) pets [...] physical activity do you participate in: none susana/episcopalian: None seatbelt use: always do you feel [...] US ordered. (more content not included)... Normal [facility] Global President Office Visit Reporton 02-12-2025 Global President Office Visit Report [facility] [address], [address] [place] [address] OFFICE VISIT Date of Service: 02/12/25 MR#: [id number] Acct: [id number] Name: ERIKA PINEDA Rep #: [id number] : 2005 Provider: Dr. Mar lim MD Age/Sex: 19/F Location: [facility] [place] Status: Signed Intake Vital Signs 08/13/24 09:09 02/05/25 11:38 02/12/25 13:31 Height 5 ft 1 in 5 ft 1 in 5 ft 1 in Weight: 187 lb 4 oz BMI 35.4 BP 112/76 Intake Visit Reasons: 38 wk ob Mule Operator Required: No Is patient in pain?: No [...] family current occupational status: employed current occupation: [employer] pets and animals: Yes (Avoid litterbox) pets [...] physical activity do you participate in: none susana/episcopalian: None seatbelt use: always do you feel safe at home: Yes additional social history: BF Richard- Ecco Se[employer] History 1 Elective abortions Hx Para 0 Spontaneous abortions Hx # Term Pregnancies Ectopic pregnancies Hx # Pregnancies Multiple births # of living children HPI 38 wk ob Details: ERIKA IPNEDA is a 19 year old who presents [...] amping. +flutters. (more content not included)... Normal [facility] Global President Office Visit Reporton 02-05-2025 Global President Office Visit Report [facility] [address], [address] [place] [address] OFFICE VISIT Date of Service: 02/05/25 MR#: [id number] Acct: [id number] Name: ERIKA PINEDA Rep #: [id number] : 2005 Provider: MANINDER Norris ams Age/Sex: 19/F Location: [facility] [place].[facility] Status: Signed Intake Vital Signs 08/13/24 09:09 01/25/25 10:45 02/05/25 11:38 Height 5 ft 1 in 5 ft 1 in 5 ft 1 in Weight: 188 lb 2 oz BMI 35.5 BP 126/83 H Intake Visit Reasons: 37 wk ob Chief Complaint: 37 Week OB Mule Operator Required: No Is patient in pain?: No [...] family current occupational status: employed current occupation: [employer] pets and animals: Yes (Avoid litterbox) pets [...] physical activity do you participate in: none susana/episcopalian: None seatbelt use: always do you feel [...] no v (more content not included)... Normal [facility] Rule out Beta Strep (Grp. B) on 01-28-2025 MONICA Group B Beta Streptococcus is not isolated. Normal [facility] Comment on above: Performed By: #### M 100.3400 #### [facility] [place], [address] Laboratory - Chemistry and C hemistry - challengeOrdered By: Lizet Flynn on 01-25-2025 Glucose Ql (U) Negative [facility] Laboratory - UrinalysisOrder ed By: Lizet Flynn on 01-25-2025 Protein Ql (U) Negative [facility] Global President Office Visit Reporton 01-25-2025 Global President Office Visit Report [facility] [address], [address] [place] [address] OFFICE VISIT Date of Service: 01/25/25 MR#: [id number] Acct: [id number] Name: ERIKA PINEDA Rep #: [id number] : 2005 Provider: Dr. Lizet Alvarez DO Age/Sex: 19/F Location: [facility] [place] Status: Signed Intake Vital Signs 08/13/24 09:09 09/11/24 11:09 01/14/25 10:44 01/25/25 10:43 01/25/25 10:45 Height 5 ft 1 in 5 ft 1 in 5 ft 1 in 5 ft 1 in 5 ft 1 in Weight: 187 lb 4 oz BMI 35.4 BP 106/62 Intake Visit Reasons: 36 wk ob Mule Operator Required: No Is patient in pain?: No [...] family current occupational status: employed current occupation: [employer] pets and animals: Yes (Avoid litterbox) pets [...] physical activity do you participate in: none susana/episcopalian: None seatbelt use: always do you feel [...] -???-???-???-???-?? ?-???-???-?? (more content not included)... Normal [facility] Screening beta-hemolytic Str eptococcus cultureOrdered By: Lizet Flynn on 01-25-2025 Beta-hemolytic Streptococcus culture Group B Beta Streptococcus is not isolated. [facility] Laboratory - Chemistry and C hemistry - challengeOrdered By: Bernarda Weber on 01-14-2025 Glucose Ql (U) Negative [facility] Laboratory - UrinalysisOrder ed By: Bernarda Weber on 01-14-2025 Protein Ql (U) Negative [facility] Global President Office Visit Reporton 01-14-2025 Global President Office Visit Report [facility] [address], [address] [place] [address] OFFICE VISIT Date of Service: 01/14/25 MR#: [id number] Acct: [id number] Name: ERIKA PINEDA Rep #: [id number] : 2005 Provider: MANINDER Norris ams Age/Sex: 19/F Location: [facility] [place] Status: Signed Intake Vital Signs 08/13/24 08:33 08/13/24 09:09 12/18/24 09:39 12/28/24 14:02 01/14/25 10:44 Height 5 ft 1 in 5 ft 1 in 5 ft 1 in 5 ft 1 in 5 ft 1 in Weight: 185 lb BMI 34.9 BP 108/74 Intake Visit Reasons: 34 wk ob Chief Complaint: 34wk OB Mule Operator Required: No Is patient in pain?: No [...] family current occupational status: employed current occupation: [employer] pets and animals: Yes (Avoid litterbox) pets [...] physical activity do you participate in: none susana/episcopalian: None seatbelt use: always do you feel [...] -???-???-???-???-?? ?-???-???-???- (more content not included)... Normal [facility] Laboratory - Chemistry and C hemistry - challengeOrdered By: Bernarda Weber on 12-28-2024 Glucose Ql (U) Negative [facility] Laboratory - UrinalysisOrder ed By: Bernarda Weber on 12-28-2024 Protein Ql (U) Negative [facility] Global President Office Visit Reporton 12-28-2024 Global President Office Visit Report [facility] [address] [place] [address], [address] [place] [address] OFFICE VISIT Date of Service: 12/28/24 MR#: [id number] Acct: [id number] Name: ERIKA PINEDA Rep #: [id number] : 2005 Provider: MANINDER Nroris ams Age/Sex: 19/F Location: [facility] [place] Status: Signed Intake Vital Signs 08/13/24 08:33 12/18/24 09:39 12/20/24 17:13 12/28/24 14:02 Height 5 ft 1 in 5 ft 1 in 5 ft 1 in 5 ft 1 in Weight: 180 lb BMI 34.0 BP 94/60 Intake Visit Reasons: 32 wk ob Chief Complaint: 32 wk OB Mule Operator Required: No Is patient in pain?: No [...] family current occupational status: employed current occupation: [employer] pets and animals: Yes (Avoid litterbox) pets [...] physical activity do you participate in: none susana/episcopalian: None seatbelt use: always do you feel [...] US ord (more content not included)... Normal [facility] Urine Cultureon 12-23-2024 [facility] Mixed Gram Positive Organisms [place] Count 11,000-25,000 MIXC Mixed contaminants. Submit a new specimen if indicated. Normal [facility] Comment on above: Performed By: #### M 100.0569 #### [facility] [address], [address] OB Triage Progress Noteon OB Triage Progress Note [facility] Medical Records Department [address] [place] [address] OB Triage Progress Note 12/21/24 0800 MR#: [id number] Acct: [id number] Name: ERIKA PINEDA Rep #: [id number] : 2005 19 From: Bernarda Weber CNM PCP: Dr. Jorge Bearden MD Status:DEP CLI Y DOS: Location: [facility] Progress Notes Date of Service: 12/20/24 Progress Note: Patient presents for triage evaluation secondary to back pain at 31.1 weeks FHT: 135 Moderate variability reactive no decelerations category I tracing [place]: no Contractions Assessment and plan: labs normal, [...] pH 7.0 (5.0 - 8.0) Ur Specific [place] 1.005 (1.002-1.030) Urine Protein 15 H (Negative) [...] Multi Select Codes Urinary/Genital Urinary/Genital CPT Codes: 36020-43 non-stress test Interp Assessment Plan (1) Back [...] Weber; Dr. Jorge Bearden MD Signed Normal [facility] Anion gap in Serum or Plasma Ordered By: Bernarda Weber on 12-20-2024 Anion gap [Moles/Vol] 13 mmol/L 5-15 [facility] BUN/creatinine ratioOrdered By: Bernarda Weber on 12-20-2024 Urea nitrogen/Creatinine [Mass ratio] 12.5 mg/mg 10-20 [facility] Bilirubin Test strip Ql (U)O rdered By: Bernarda Weber on 12-20-2024 Bilirubin Ql (U) Negative Negative [facility] Bilirubin, totalOrdered By: Bernarda Weber on 12-20-2024 Bilirubin [Mass/Vol] mg/dL 0.00-1.30 [facility] Biophysical Prof W/O Non Str eson 12-20-2024 Biophysical Prof W/O Non Stres [facility] Imaging Services [address] [place] [address] Biophysical Prof W/O Non Stres MR#: [id number] Acct: [id number] Name: ERIKA PINEDA Rep #: [id number] : 2005 F 19 From: Anderson Lr MD PCP: Dr. Jorge Bearden MD Status: DEP CLI Study: Biophysical Prof W/O Non Stres Date of Exam: 0 12/20/24 Exam# [id number] Ordering Dr: Bernarda Weber CNM PROCEDURE: BIOPHYSICAL [...] with biophysical profile of 03/26. Reading Location: [facility] CC: MANINDER Weber; Dr. Jorge Bearden MD Civil Rights Representative: Signed Normal [facility] CBC-Complete Blood Cnt No Di ffon 12-20-2024 Erythrocyte distribution width (RBC) [Ratio] 12.6 % Normal 11.6-14.6 [facility] Comment on above: Performed By: #### M 100.2200 #### [facility] [address] [place], [address] Hematocrit (Bld) [Volume fraction] 33.5 % Low 37-47 [facility] Comment on above: Performed By: #### M 100.2200 #### [facility] [address] [place], [address] Hemoglobin (Bld) [Mass/Vol] 11.6 g/dL Low 12.0-15.0 [facility] Comment on above: Performed By: #### M 100.2200 #### [facility] [address] [place], [address] MCH (RBC) [Entitic mass] 30.2 pg Normal 27.0-32.0 [facility] Comment on above: Performed By: #### M 100.2200 #### [facility] [address] [place], [address] MCHC (RBC) [Mass/Vol] 34.6 g/dL Normal 32-36 [facility] Comment on above: Performed By: #### M 100.2200 #### [facility] [address] [place], [address] MCV (RBC) [Entitic vol] 87.2 fL Normal 81-99 [facility] Comment on above: Performed By: #### M 100.2200 #### [facility] [address] [place], [address] Platelet mean volume (Bld) [Entitic vol] 10.2 fL Normal 6.2-12.0 [facility] Comment on above: Performed By: #### M 100.2200 #### [facility] [address] [place], [address] Platelets (Bld) [#/Vol] 289 10*3/uL Normal 150-450 [facility] Comment on above: Performed By: #### M 100.2200 #### [facility] [address] [place], [address] RBC (Bld) [#/Vol] 3.84 10*6/uL Low 4.2-5.4 [facility] Comment on above: Performed By: #### M 100.2200 #### [facility] [address] [place], [address] RDW SD 40.3 fl Normal 35.1-43.9 [facility] Comment on above: Performed By: #### M 100.2200 #### [facility] [address] [place], [address] WBC (Bld) [#/Vol] 14.6 10*3/uL High 4.4-11.0 [facility] Comment on above: Performed By: #### M 100.2200 #### [facility] [address] [place], [address] Carbon dioxide, total [Moles /volume] in Central venous bloodOrdered By: Bernarda Weber on 12-20-2024 CO2 [Moles/Vol] 20.5 mmol/L Low 21.0-32.0 [facility] Chloride assayOrdered By: Gustavo Weber on 12-20-2024 Chloride [Moles/Vol] 101 mmol/L 98-108 [facility] Comprehensive Metabolic Prof ilon 12-20-2024 Albumin [Mass/Vol] 3.7 g/dL Normal 3.5-5.0 [facility] Comment on above: Performed By: #### M 100.2200 #### [facility] [address] [place], [address] Albumin/Globulin [Mass ratio] 1.2 {ratio} Normal 0.9-2.4 [facility] Comment on above: Performed By: #### M 100.2200 #### [facility] [address] [place], [address] ALK PHOS 91 U/L Normal 35-104 [facility] Comment on above: Performed By: #### M 100.2200 #### [facility] [address] [place], [address] ALT [Catalytic activity/Vol] 14 U/L Normal <=34 [facility] Comment on above: Performed By: #### M 100.2200 #### [facility] [address] [place], [address] AST [Catalytic activity/Vol] 17 U/L Normal <=31 [facility] Comment on above: Performed By: #### M 100.2200 #### [facility] [address] [place], [address] BUN/CRE 12.5 RATIO Normal 10-20 [facility] Comment on above: Performed By: #### M 100.2200 #### [facility] [address] [place], [address] Calcium [Mass/Vol] 9.1 mg/dL Normal 7.6-11.0 [facility] Comment on above: Performed By: #### M 100.2200 #### [facility] [address] [place], [address] Chloride [Moles/Vol] 101 mmol/L Normal 98-108 [facility] Comment on above: Performed By: #### M 100.2200 #### [facility] [address] [place], [address] CO2 [Moles/Vol] 20.5 mmol/L Low 21.0-32.0 [facility] Comment on above: Performed By: #### M 100.2200 #### [facility] [address] [place], [address] Creatinine [Mass/Vol] 0.62 mg/dL Low 0.70-1.20 [facility] Comment on above: Performed By: #### M 100.2200 #### [facility] [address] [place], [address] ECRCL 138.99 ml/min Normal 50-250 [facility] Comment on above: Performed By: #### M 100.2200 #### [facility] [address] [place], [address] GAP 13 Normal 5-15 [facility] Comment on above: Performed By: #### M 100.2200 #### [facility] [address] [place], [address] GFR/1.73 sq M.predicted among non-blacks MDRD (S/P/Bld) [Vol rate/Area] 130 mL/min/{1.73_m2} Normal >60 [facility] Comment on above: Result Comment: mL/m in/1.73m2 CKD-EPI Creatinine Equation (2020) Performed By: #### M 100.2200 #### [facility] [address] [place], [address] Globulin (S) [Mass/Vol] 3.0 g/dL Normal 2.2-4.2 [facility] Comment on above: Performed By: #### M 100.2200 #### [facility] [address] [place], [address] Glucose [Mass/Vol] 75 mg/dL Normal 70-99 [facility] Comment on above: Performed By: #### M 100.2200 #### [facility] [address] [place], [address] Potassium [Moles/Vol] 3.7 mmol/L Normal 3.3-5.1 [facility] Comment on above: Performed By: #### M 100.2200 #### [facility] [address] [place], [address] Sodium [Moles/Vol] 135 mmol/L Normal 133-145 [facility] Comment on above: Performed By: #### M 100.2200 #### [facility] [address] [place], [address] T BILI < 0.15 Normal 0.00-1.30 [facility] Comment on above: Performed By: #### M 100.2200 #### [facility] [address] [place], [address] T PROT 6.8 g/dL Normal 5.9-8.4 [facility] Comment on above: Performed By: #### M 100.2200 #### [facility] [address] [place], [address] Urea nitrogen [Mass/Vol] 8 mg/dL Normal 4-19 [facility] Comment on above: Performed By: #### M 100.2200 #### [facility] [address] [place], [address] Erythrocyte distribution wid th ratioOrdered By: Bernarda Weber on 12-20-2024 Erythrocyte distribution width (RBC) [Ratio] 12.6 % 11.6-14.6 [facility] Erythrocyte distribution wid th standard deviationOrdered By: Bernarda Weber on 12-20-2024 Erythrocyte distribution width (RBC) [Ratio] 40.3 fl 35.1-43.9 [facility] Fibronectinon 12-21-19 25 fFIBRONECTIN Normal [facility] Comment on above: Result Comment: [place]ito elled via OM: Ordered Performed By: #### M 100.2200 #### [facility] [address] [place], [place], [address] RECORD KIT LOT# Normal [facility] Comment on above: Result Comment: Beverly elled via OM: Ordered Performed By: #### M 100.2200 #### [facility] [address] [place], [address] Fibrinogenon 12-20-2024 FIBRINOGEN 439 mg/dl Normal 203-444 [facility] Comment on above: Performed By: #### M 100.2200 #### [facility] [address] [place], [place], [address] Glomerular filtration rate ( GFR) estimation/1.73 sq m using serum, plasma, or whole bOrdered By: Bernarda Weber on 12-20-2024 GFR/1.73 sq M.predicted among non-blacks MDRD (S/P/Bld) [Vol rate/Area] 130 mL/min/{1.73_m2} >60 [facility] Comment on above: mL/min/1.73m2 CKD-EP I Creatinine Equation (2020) Hematocrit Auto (Bld) [Volum e fraction]Ordered By: Bernarda Weber on 12-20-2024 Hematocrit (Bld) [Volume fraction] 33.5 % Low 37-47 [facility] Hemoglobin measurementOrdere d By: Bernarda Weber on 12-20-2024 Hemoglobin (Bld) [Mass/Vol] 11.6 g/dL Low 12.0-15.0 [facility] Ketones Test strip Ql (U)Ord ered By: Bernarda Weber on 12-20-2024 Ketones Ql (U) Negative Negative [facility] Laboratory - Chemistry and C hemistry - challengeOrdered By: Bernarda Weber on 12-20-2024 AST [Catalytic activity/Vol] 17 U/L <32 [facility] Lipaseon 12-20-2024 Lipase [Catalytic activity/Vol] 24 U/L Normal 13-75 [facility] Comment on above: Result Comment: Jyoti salazar note: LIPASE revised reference range effective 22. New Lipase methodology. Expected to produce lower values than the previous assay method. NEW Reference Range: 13 - 75 U/L Performed By: #### M 100.2200 #### [facility] [address] [place], [place], [address] Lipase measurementOrdered By : Bernarda Weber on 12-20-2024 Lipase [Catalytic activity/Vol] 24 U/L 13-75 [facility] Comment on above: Please note:LIPASE r evised reference range effective 22. New Lipase methodology. Expected to produce lower values than the previous assay method. NEW Reference Range: 13 - 75 U/L MCV (mean corpuscular volume ) determinationOrdered By: Bernarda Weber on 12-20-2024 MCV (RBC) [Entitic vol] 87.2 fL 81-99 [facility] Mean corpuscular hemoglobin (MCH) determinationOrdered By: Bernarda Weber on 12-20-2024 MCH (RBC) [Entitic mass] 30.2 pg 27.0-32.0 [facility] Mean corpuscular hemoglobin concentration (MCHC) determinationOrdered By: Bernarda Weber on 12-20-2024 MCHC (RBC) [Mass/Vol] 34.6 g/dL 32-36 [facility] Mean platelet volume determi nationOrdered By: Bernarda Weber on 12-20-2024 Platelet mean volume (Bld) [Entitic vol] 10.2 fL 6.2-12.0 [facility] Nitrite Test strip Ql (U)Ord ered By: Bernarda Weber on 12-20-2024 Nitrite Ql (U) Negative Negative [facility] OB Limited With Biometricson 12-20-2024 OB Limited With Biometrics [facility] Imaging Services [address] [place], [place] [id number] OB Limited With Biometrics MR#: [id number] Acct: [id number] Name: ERIKA PINEDA Rep #: [id number] : 2005 F 19 From: Anderson Lr MD PCP: Dr. Jorge Bearden MD Status: DEP CLI Study: OB Limited With Biometrics Date of Exam: 12/20 Exam# [id number] Ordering Dr: Bernarda Weber CNM PROCEDURE: OB [...] weeks 6 days, 97.30 percentile Reading Location: [id number] CC: MANINDER Weber; Dr. Jorge Bearden MD Civil Rights Representative: Signed Normal [facility] Platelet countOrdered By: Gustavo Weber on 12-20-2024 Platelets (Bld) [#/Vol] 289 10*3/uL 150-450 [facility] Potassium measurement (mass/ volume)Ordered By: Bernarda Weber on 12-20-2024 Potassium (Unsp spec) [Mass/Vol] 3.7 mmol/L 3.3-5.1 [facility] Protein Test strip Ql (U)Ord ered By: Bernarda Weber on 12-20-2024 Protein Ql (U) 15 mg/dl High Negative [facility] Protein+Creatinine Ratio,Uri neon 12-20-2024 PROT:CRE RATIO 151 mg/g CRE Normal 0-200 [facility] Comment on above: Performed By: #### M 100.2200 #### [facility] [address] [place], [address] Protein (U) [Mass/Vol] 8.5 mg/dL Normal 0.0-12.0 [facility] Comment on above: Performed By: #### M 100.2200 #### [facility] [address] [place], [address] UR CREAT 56.10 mg/dL Normal 28.00-217.00 [facility] Comment on above: Performed By: #### M 100.2200 #### [facility] [address] [place], [address] RBC Auto (Bld) [#/Vol]Ordere d By: Bernarda Weber on 12-20-2024 RBC (Bld) [#/Vol] 3.84 10*6/uL Low 4.2-5.4 [facility] Random urine creatinine james urement (mass/volume)Ordered By: Bernarda Weber on 12-20-2024 Creatinine Unsp time (U) [Mass/Vol] 56.10 mg/dL 28.00-217.00 [facility] Serum creatinine measurement (mass/volume)Ordered By: Bernarda Weber on 12-20-2024 Creatinine [Mass/Vol] 0.62 mg/dL Low 0.70-1.20 [facility] Serum globulin measurementOr dered By: Bernarda Weber on 12-20-2024 Globulin (S) [Mass/Vol] 3.0 g/dL 2.2-4.2 [facility] Serum glucose measurement (m ass/volume)Ordered By: Bernarda Weber on 12-20-2024 Glucose [Mass/Vol] 75 mg/dL 70-99 [facility] Serum or plasma alanine lentz otransferase (ALT) measurementOrdered By: Bernarda Weber on 12-20-2024 ALT [Catalytic activity/Vol] 14 U/L <35 [facility] Serum or plasma albumin james urement (mass/volume)Ordered By: Bernarda Weber on 12-20-2024 Albumin [Mass/Vol] 3.7 g/dL 3.5-5.0 [facility] Serum or plasma albumin/glob ulin mass ratioOrdered By: Bernarda Weber on 12-20-2024 Albumin/Globulin [Mass ratio] 1.2 {ratio} 0.9-2.4 [facility] Serum or plasma alkaline rudy sphatase measurementOrdered By: Bernarda Weber on 12-20-2024 ALP [Catalytic activity/Vol] 91 U/L 35-104 [facility] Serum or plasma calcium james urement (mass/volume)Ordered By: Bernarda Weber on 12-20-2024 Calcium [Mass/Vol] 9.1 mg/dL 7.6-11.0 [facility] Serum or plasma urea nitroge n measurement (mass/volume)Ordered By: Bernarda Weber on 12-20-2024 Urea nitrogen [Mass/Vol] 8 mg/dL 4-19 [facility] Sodium levelOrdered By: Tennille Weber on 12-20-2024 Sodium [Moles/Vol] 135 mmol/L 133-145 [facility] Total proteinOrdered By: Donny Weber on 12-20-2024 Protein [Mass/Vol] 6.8 g/dL 5.9-8.4 [facility] Urinalysis, Routine (Dipstic k)on 12-20-2024 BILIRUBIN URINE Negative Normal Negative [facility] Comment on above: Order Comment: CLEAN CATCH Performed By: #### L 501.0900, L501.4405, L501.1400, L501.4100, L501.1105, L100.0500 #### [facility] [place], [address] Clarity (U) Clear Normal Clear [facility] Comment on above: Order Comment: CLEAN CATCH Performed By: #### L 501.0900, L501.4405, L501.1400, L501.4100, L501.1105, L100.0500 #### [facility] [address] [place], [address] Color (U) Straw Normal Yellow [facility] Comment on above: Order Comment: CLEAN CATCH Performed By: #### L 501.0900, L501.4405, L501.1400, L501.4100, L501.1105, L100.0500 #### [facility] [address] [place], [address] GLUCOSE, UR Normal Normal Normal [facility] Comment on above: Order Comment: CLEAN CATCH Performed By: #### L 501.0900, L501.4405, L501.1400, L501.4100, L501.1105, L100.0500 #### [facility] [address] [place], [address] KETONE UR Negative Normal Negative [facility] Comment on above: Order Comment: CLEAN CATCH Performed By: #### L 501.0900, L501.4405, L501.1400, L501.4100, L501.1105, L100.0500 #### [facility] [address] [place], [address] LEUK ESTERASE Negative Normal Negative [facility] Comment on above: Order Comment: CLEAN CATCH Performed By: #### L 501.0900, L501.4405, L501.1400, L501.4100, L501.1105, L100.0500 #### [facility] [address] [place], [address] Nitrite Ql (U) Negative Normal Negative [facility] Comment on above: Order Comment: CLEAN CATCH Performed By: #### L 501.0900, L501.4405, L501.1400, L501.4100, L501.1105, L100.0500 #### [facility] [address] [place], [address] OCCULT BLOOD-UR Negative Normal Negative [facility] Comment on above: Order Comment: CLEAN CATCH Performed By: #### L 501.0900, L501.4405, L501.1400, L501.4100, L501.1105, L100.0500 #### [facility] [address] [place], [address] pH UR 7.0 Normal 5.0 - 8.0 [facility] Comment on above: Order Comment: CLEAN CATCH Performed By: #### L 501.0900, L501.4405, L501.1400, L501.4100, L501.1105, L100.0500 #### [facility] [address] [place], [address] PROT DIPSTX 15 mg/dl Abnormal Negative [facility] Comment on above: Order Comment: CLEAN CATCH Performed By: #### L 501.0900, L501.4405, L501.1400, L501.4100, L501.1105, L100.0500 #### [facility] [address] [place], [address] SP.GR. DIPSTX 1.005 Normal 1.002-1.030 [facility] Comment on above: Order Comment: CLEAN CATCH Performed By: #### L 501.0900, L501.4405, L501.1400, L501.4100, L501.1105, L100.0500 #### [facility] [address] [place], [address] UROBILI Normal Normal Normal [facility] Comment on above: Order Comment: CLEAN CATCH Performed By: #### L 501.0900, L501.4405, L501.1400, L501.4100, L501.1105, L100.0500 #### [facility] [address] [place], [address] Urine clarityOrdered By: Donny Weber on 12-20-2024 Clarity (U) Clear Clear [facility] Urine color determinationOrd ered By: Bernarda Weber on 12-20-2024 Color (U) Straw Yellow [facility] Urine cultureOrdered By: Donny Weber on 12-20-2024 Bacteria identified Cx Nom (U) Positive Abnormal [facility] Urine glucose detectionOrder ed By: Bernarda Weber on 12-20-2024 Glucose Ql (U) Normal mg/dl Normal [facility] Urine leukocyte esterase det ection by dipstickOrdered By: Bernarda Weber on 12-20-2024 Leukocyte esterase Test strip Ql (U) Negative Negative [facility] Urine pHOrdered By: Bernarda gibbs on 12-20-2024 pH (U) 7.0 [pH] 5.0 - 8.0 [facility] Urine protein measurement (m ass/volume)Ordered By: Bernarda Weber on 12-20-2024 Protein (U) [Mass/Vol] 8.5 mg/dL 0.0-12.0 [facility] Urine protein/creatinine mas s ratioOrdered By: Bernarda Weber on 12-20-2024 Protein/Creatinine (U) [Mass ratio] 151 mg/g CRE 0-200 [facility] Urine specific gravity measu rementOrdered By: Bernarda Weber on 12-20-2024 Specific gravity (U) [Rel density] 1.005 1.002-1.030 [facility] Urine urobilinogen measureme ntOrdered By: Bernarda Weber on 12-20-2024 Urobilinogen Ql (U) Normal mg/dl Normal [facility] White blood cell (WBC) count Ordered By: Bernarda Weber on 12-20-2024 WBC (Bld) [#/Vol] 14.6 10*3/uL High 4.4-11.0 [facility] Global President Office Visit Reporton 12-18-2024 Global President Office Visit Report [facility], [address] [place] [address] OFFICE VISIT Date of Service: 12/18/24 MR#: [id number] Acct: [id number] Name: ERIKA PINEDA Rep #: [id number] : 2005 Provider: Dr. Mar lim MD Age/Sex: 19/F Location: [facility] [place] Status: Signed with Addenda ADDENDUM by Dr. 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 Normal [facility] Urine Cultureon 12-03-2024 URC Below infection level. Mixed Gram Positive Organisms [place] Count 1000-10,000 MIXC Mixed contaminants. Submit a new specimen if indicated. Normal [facility] Comment on above: Performed By: #### M 100.2200 #### [facility] [address] [facility] [place], [place], [address] AST(SGOT)on 12-01-2024 AST [Catalytic activity/Vol] 25 U/L Normal <=31 [facility] Comment on above: Result Comment: Hemo lysis present, Results??could be affected. ?? Performed By: #### L 501.0900, L501.4405, L501.1400, L501.4100, L501.1105, L100.0500 #### [facility] [address] [place], [address] Alanine Aminotransferas (SGP T)on 12-01-2024 ALT [Catalytic activity/Vol] 18 U/L Normal <=34 [facility] Comment on above: Performed By: #### L 501.0900, L501.4405, L501.1400, L501.4100, L501.1105, L100.0500 #### [facility] [address] [place], [address] Bilirubin Test strip Ql (U)O rdered By: Lizet Flynn on 12-01-2024 Bilirubin Ql (U) Negative Negative [facility] CBC-Complete Blood Cnt No Di ffon 12-01-2024 Erythrocyte distribution width (RBC) [Ratio] 13.0 % Normal 11.6-14.6 [facility] Comment on above: Performed By: #### L 501.0900, L501.4405, L501.1400, L501.4100, L501.1105, L100.0500 #### [facility] [address] [place], [address] Hematocrit (Bld) [Volume fraction] 34.3 % Low 37-47 [facility] Comment on above: Performed By: #### L 501.0900, L501.4405, L501.1400, L501.4100, L501.1105, L100.0500 #### [facility] [address] [place], [address] Hemoglobin (Bld) [Mass/Vol] 11.9 g/dL Low 12.0-15.0 [facility] Comment on above: Performed By: #### L 501.0900, L501.4405, L501.1400, L501.4100, L501.1105, L100.0500 #### [facility] [address] [place], [address] MCH (RBC) [Entitic mass] 30.8 pg Normal 27.0-32.0 [facility] Comment on above: Performed By: #### L 501.0900, L501.4405, L501.1400, L501.4100, L501.1105, L100.0500 #### [facility] [address] [place], [address] MCHC (RBC) [Mass/Vol] 34.7 g/dL Normal 32-36 [facility] Comment on above: Performed By: #### L 501.0900, L501.4405, L501.1400, L501.4100, L501.1105, L100.0500 #### [facility] [address] [place], [address] MCV (RBC) [Entitic vol] 88.9 fL Normal 81-99 [facility] Comment on above: Performed By: #### L 501.0900, L501.4405, L501.1400, L501.4100, L501.1105, L100.0500 #### [facility] [address] [place], [address] Platelet mean volume (Bld) [Entitic vol] 10.1 fL Normal 6.2-12.0 [facility] Comment on above: Performed By: #### L 501.0900, L501.4405, L501.1400, L501.4100, L501.1105, L100.0500 #### [facility] [address] [place], [address] Platelets (Bld) [#/Vol] 297 10*3/uL Normal 150-450 [facility] Comment on above: Performed By: #### L 501.0900, L501.4405, L501.1400, L501.4100, L501.1105, L100.0500 #### [facility] [address] [place], [address] RBC (Bld) [#/Vol] 3.86 10*6/uL Low 4.2-5.4 [facility] Comment on above: Performed By: #### L 501.0900, L501.4405, L501.1400, L501.4100, L501.1105, L100.0500 #### [facility] [address] [place], [address] RDW SD 42.5 fl Normal 35.1-43.9 [facility] Comment on above: Performed By: #### L 501.0900, L501.4405, L501.1400, L501.4100, L501.1105, L100.0500 #### [facility] [address] [place], [address] WBC (Bld) [#/Vol] 13.8 10*3/uL High 4.4-11.0 [facility] Comment on above: Performed By: #### L 501.0900, L501.4405, L501.1400, L501.4100, L501.1105, L100.0500 #### [facility] [address] [place], [address] Creatinine Unsp time (U) [Ma ss/Vol]Ordered By: Lizet Flynn on 12-01-2024 Creatinine (U) [Mass/Vol] 228.00 mg/dL High 28.00-21 7.00 [facility] Epithelial cells.squamous LM Ql (Urine sed)Ordered By: Lizet Flynn on 12-01-2024 Epithelial cells.squamous LM.HPF (Urine sed) [#/Area] 5 /[HPF] 5-10 [facility] Erythrocyte distribution wid th (RBC) [Ratio]Ordered By: Lizet Flynn on 12-01-2024 Erythrocyte distribution width (RBC) [Entitic vol] 42.5 fL 35.1-43.9 [facility] Erythrocyte distribution wid th ratioOrdered By: Lizet Flynn on 12-01-2024 Erythrocyte distribution width (RBC) [Ratio] 13.0 % 11.6-14.6 [facility] Erythrocyte distribution wid th standard deviationOrdered By: Lizetsamantha Flynn on 12-01-2024 Erythrocyte distribution width (RBC) [Ratio] 42.5 fl 35.1-43.9 [facility] Estimation of creatinine sabino aranceOrdered By: Lizet Flynn on 12-01-2024 Estimated Creatinine Clearance Calc 157.12 ml/min 50-250 [facility] GFR/1.73 sq M.predicted shelbie g non-blacks MDRD (S/P/Bld) [Vol rate/Area]Ordered By: Lizet Flynn on 12-01-2024 Estimated GFR (MDRD) Non-Af Amer 134 >60 [facility] Comment on above: mL/min/1.73m2 CKD-EP I Creatinine Equation (2020) Glomerular filtration rate ( GFR) estimation/1.73 sq m using serum, plasma, or whole bOrdered By: Lizet Flynn on 12-01-2024 GFR/1.73 sq M.predicted among non-blacks MDRD (S/P/Bld) [Vol rate/Area] 134 mL/min/{1.73_m2} >60 [facility] Comment on above: mL/min/1.73m2 CKD-EP I Creatinine Equation (2020) Glucose Ql (U)Ordered By: Bubba Flynn on 12-01-2024 Urine Glucose (UA) Normal mg/dl Normal [facility] Hematocrit Auto (Bld) [Volum e fraction]Ordered By: Lizet Flynn on 12-01-2024 Hematocrit (Bld) [Volume fraction] 34.3 % Low 37-47 [facility] Hemoglobin measurementOrdere d By: Lizet Flynn on 12-01-2024 Hemoglobin (Bld) [Mass/Vol] 11.9 g/dL Low 12.0-15.0 [facility] Ketones Test strip Ql (U)Ord ered By: Lizet Flynn on 12-01-2024 Ketones Ql (U) Negative Negative [facility] Laboratory - Chemistry and C hemistry - challengeOrdered By: Lizet Flynn on 12-01-2024 AST [Catalytic activity/Vol] 25 U/L <32 [facility] Comment on above: Hemolysis present, R esults could be affected. MCV (mean corpuscular volume ) determinationOrdered By: Lizet Flynn on 12-01-2024 MCV (RBC) [Entitic vol] 88.9 fL 81-99 [facility] Mean corpuscular hemoglobin (MCH) determinationOrdered By: Lizet Flynn on 12-01-2024 MCH (RBC) [Entitic mass] 30.8 pg 27.0-32.0 [facility] Mean corpuscular hemoglobin concentration (MCHC) determinationOrdered By: Lizet Flynn on 12-01-2024 MCHC (RBC) [Mass/Vol] 34.7 g/dL 32-36 [facility] Mean platelet volume determi nationOrdered By: Lizet Flynn on 12-01-2024 Platelet mean volume (Bld) [Entitic vol] 10.1 fL 6.2-12.0 [facility] Microscopic analysis of urin e for red blood cells (RBC)Ordered By: Lizet Flynn on 12-01-2024 Microscopic analysis of urine for red blood cells (RBC) 0-5 SEEN /hpf 0-5 [facility] Urine RBC 0-5 SEEN /hpf 0-5 [facility] Mucus LM Ql (Urine sed)Order ed By: Lizet Flynn on 12-01-2024 Mucus Ql (Urine sed) 2+ /hpf [facility] Nitrite Test strip Ql (U)Ord ered By: Lizet Flynn on 12-01-2024 Nitrite Ql (U) Negative Negative [facility] OB Triage Physician Noteon 0 12-01-2024 OB Triage Physician Note [facility] Medical Records Department [address] [place] [address] OB Triage Physician Note 12/01/241950 MR#: [id number] Acct: [id number] Name: ERIKA PINEDA Rep #: [id number] : 2005 19 From: Lizet Sood DO PCP: Dr. Jorge Bearden MD Status:DEP [facility] Location: [facility] HPI - General General Date of Admission: 12/01/24 HPI Narrative ERIKA PINEDA, is a 19 y/o @ 28 weeks 3 days who presents to [facility] with nausea, vomiting, diarrhea, and epigastric/ruq pain. [...] family current occupational status: employed current occupation: [employer] pets and animals: Yes (Avoid litterbox) pets [...] physical activity do you participate in: none susana/episcopalian: None seatbelt use: always do you feel [...] 11/09/24 -???-? (more content not included)... Normal [facility] Platelet countOrdered By: Bubba Flynn on 12-01-2024 Platelets (Bld) [#/Vol] 297 10*3/uL 150-450 [facility] Protein Test strip Ql (U)Ord ered By: Lizet Flynn on 12-01-2024 Protein Ql (U) 30 mg/dl High Negative [facility] Protein+Creatinine Ratio,Uri neon 12-01-2024 PROT:CRE RATIO 141 mg/g CRE Normal 0-200 [facility] Comment on above: Performed By: #### L 501.0900, L501.4405, L501.1400, L501.4100, L501.1105, L100.0500 #### [facility] [address] [place], [address] Protein (U) [Mass/Vol] 32.1 mg/dL High 0.0-12.0 [facility] Comment on above: Performed By: #### L 501.0900, L501.4405, L501.1400, L501.4100, L501.1105, L100.0500 #### [facility] [address] [place], [address] UR CREAT 228.00 mg/dL High 28.00-217.00 [facility] Comment on above: Performed By: #### L 501.0900, L501.4405, L501.1400, L501.4100, L501.1105, L100.0500 #### [facility] [address] [place], [address] Protein/Creatinine (U) [Mass ratio]Ordered By: Lizet Flynn on 12-01-2024 Urine Protein/Creatinine Ratio 141 mg/g CRE 0-200 [facility] RBC Auto (Bld) [#/Vol]Ordere d By: Lizet Flynn on 12-01-2024 RBC (Bld) [#/Vol] 3.86 10*6/uL Low 4.2-5.4 [facility] Random urine creatinine james urement (mass/volume)Ordered By: Lizet Flynn on 12-01-2024 Creatinine Unsp time (U) [Mass/Vol] 228.00 mg/dL High 28.00-217.00 [facility] Serum Creatinine AND GFRon 0 12-01-2024 Creatinine [Mass/Vol] 0.54 mg/dL Low 0.70-1.20 [facility] Comment on above: Performed By: #### L 501.0900, L501.4405, L501.1400, L501.4100, L501.1105, L100.0500 #### [facility] [address] [place], [place], [id number] (020) ECRCL 157.12 ml/min Normal 50-250 [facility] Comment on above: Performed By: #### L 501.0900, L501.4405, L501.1400, L501.4100, L501.1105, L100.0500 #### [facility] [address] [place], [place], [address] GFR/1.73 sq M.predicted among non-blacks MDRD (S/P/Bld) [Vol rate/Area] 134 mL/min/{1.73_m2} Normal >60 [facility] Comment on above: Result Comment: mL/m in/1.73m2 CKD-EPI Creatinine Equation (2020) Performed By: #### L 501.0900, L501.4405, L501.1400, L501.4100, L501.1105, L100.0500 #### [facility] [address] [place], [place], [address] Serum creatinine measurement (mass/volume)Ordered By: Lizet Flynn on 12-01-2024 Creatinine [Mass/Vol] 0.54 mg/dL Low 0.70-1.20 [facility] Serum or plasma alanine lentz otransferase (ALT) measurementOrdered By: Lizet Flynn on 12-01-2024 ALT [Catalytic activity/Vol] 18 U/L <35 [facility] Serum or plasma uric acid me asurement (mass/volume)Ordered By: Lizet Flynn on 12-01-2024 Urate [Mass/Vol] 3.7 mg/dL 2.6-6.0 [facility] Comment on above: The drugs N-Acetylcy steine and Metamizole may falsely depress this assay. Squamous epithelial cells de tection in urine sediment by light microscopyOrdered By: Lizet Flynn on 12-01-2024 Epithelial cells.squamous LM Ql (Urine sed) 5-10 SEEN /hpf 5-10 [facility] Uric Acidon 12-01-2024 URIC 3.7 mg/dL Normal 2.6-6.0 [facility] Comment on above: Result Comment: The drugs N-Acetylcysteine and Metamizole may falsely depress this assay. Performed By: #### L 501.0900, L501.4405, L501.1400, L501.4100, L501.1105, L100.0500 #### [facility] [address] [facility] [address] [place], [address] Urinalysis, Completeon 12-01 RBC 0-5 SEEN Normal 0-5 [facility] Comment on above: Order Comment: RONY CTOR TO SPECIFY Performed By: #### M 100.2200 #### [facility] [address] [place], [address] WBC 0-5 SEEN Normal 0-5 [facility] Comment on above: Order Comment: RONY CTOR TO SPECIFY Performed By: #### M 100.2200 #### [facility] [address] [place], [address] EPI,SQUAMOUS 5-10 SEEN Normal 5-10 [facility] Comment on above: Order Comment: RONY CTOR TO SPECIFY Performed By: #### M 100.2200 #### [facility] [address] [place], [address] BACTERIA 1+ /hpf Normal None Seen [facility] Comment on above: Order Comment: RONY CTOR TO SPECIFY Performed By: #### M 100.2200 #### [facility] [address] [place], [address] Mucus Ql (Urine sed) 2+ /hpf Normal [facility] Comment on above: Order Comment: RONY CTOR TO SPECIFY Performed By: #### M 100.2200 #### [facility] [address] [place], [address] Urine blood detectionOrdered By: Lizet Flynn on 12-01-2024 Urine Occult Blood Negative Negative [facility] Urine clarityOrdered By: Amy Flynn on 12-01-2024 Clarity (U) Sl. Cloudy Clear [facility] Urine color determinationOrd ered By: Lizet Flynn on 12-01-2024 Color (U) Yellow Yellow [facility] Urine cultureOrdered By: Amy Flynn on 12-01-2024 Bacteria identified Cx Nom (U) Positive Abnormal [facility] Urine glucose detectionOrder ed By: Lizet Flynn on 12-01-2024 Glucose Ql (U) Normal mg/dl Normal [facility] Urine leukocyte esterase det ection by dipstickOrdered By: Lizet Flynn on 12-01-2024 Leukocyte esterase Test strip Ql (U) Negative Negative [facility] Urine pHOrdered By: Lizet Flynn on 12-01-2024 pH (U) 6.0 [pH] 5.0 - 8.0 [facility] Urine protein measurement (m ass/volume)Ordered By: Lizet Flynn on 12-01-2024 Protein (U) [Mass/Vol] 32.1 mg/dL High 0.0-12.0 [facility] Urine protein/creatinine mas s ratioOrdered By: Lizet Flynn on 12-01-2024 Protein/Creatinine (U) [Mass ratio] 141 mg/g CRE 0-200 [facility] Urine sediment bacteria coun t by microscopy (number/high power field)Ordered By: Lizet Flynn on 12-01-2024 Bacteria LM.HPF (Urine sed) [#/Area] 1 /[HPF] None Seen [facility] Urine specific gravity measu rementOrdered By: Lizet Flynn on 12-01-2024 Specific gravity (U) [Rel density] 1.020 1.002-1.030 [facility] Urine urobilinogen measureme ntOrdered By: Lizet Flynn on 12-01-2024 Urobilinogen Ql (U) Normal mg/dl Normal [facility] Urobilinogen Ql (U)Ordered B y: Lizet Flynn on 12-01-2024 Urine Urobilinogen Normal mg/dl Normal [facility] White blood cell (WBC) count Ordered By: Lizet Flynn on 12-01-2024 WBC (Bld) [#/Vol] 13.8 10*3/uL High 4.4-11.0 [facility] White blood cell countOrdere d By: Lizet Flynn on 12-01-2024 Urine WBC 0-5 SEEN /hpf 0-5 [facility] White blood cell count 0-5 SEEN /hpf 0-5 [facility] Absolute lymphocyte countOrd ered By: Lizet Flynn on 11-30-2024 Lymphocytes Auto (Unsp spec) [#/Vol] 2.25 10*3/uL 0.83-4.51 [facility] Absolute neutrophil countOrd ered By: Lizet Flynn on 11-30-2024 Neutrophils (Bld) [#/Vol] 8.4 10*3/uL High 2.0-7.7 [facility] Automated lymphocyte count a s percentage of total leukocytesOrdered By: Lizet Flynn on 11-30-2024 Lymphocytes/100 WBC Auto (Unsp spec) 19.8 % 19-41 [facility] Basophil percentageOrdered B y: Lizet Flynn on 11-30-2024 Basophils/100 WBC (Bld) 0.3 % 0-1 [facility] CBC W/Diff, Automatedon 11-17 Absolute Lymph 2.25 X10 3/uL Normal 0.83-4.51 [facility] Comment on above: Performed By: #### 8200.2203 #### [facility] [address] [place], [address] Absolute Neut 8.4 X10 3/uL High 2.0-7.7 [facility] Comment on above: Performed By: #### 8200.220 #### [facility] [address] [place], [address] Basophils/100 WBC (Bld) 0.3 % Normal 0-1 [facility] Comment on above: Performed By: #### 8200.2203 #### [facility] [address] [place], [address] Eosinophils/100 WBC (Bld) 0.6 % Normal 0-5 [facility] Comment on above: Performed By: #### 8200.2202 #### [facility] [address] [place], [address] Erythrocyte distribution width (RBC) [Ratio] 13.1 % Normal 11.6-14.6 [facility] Comment on above: Performed By: #### 8200.2203 #### [facility] [address] [place], [address] Hematocrit (Bld) [Volume fraction] 35.6 % Low 37-47 [facility] Comment on above: Performed By: #### 8200.2203 #### [facility] [address] [place], [address] Hemoglobin (Bld) [Mass/Vol] 11.8 g/dL Low 12.0-15.0 [facility] Comment on above: Performed By: #### 8200.2203 #### [facility] [address] [place], [address] IG% 0.700 Normal 0.0-0.9 [facility] Comment on above: Result Comment: IG% - Immature Granulocytes (promyelocytes, myelocytes and metamyelocytes) > 1% indicates that a LEFT SHIFT is Present. Performed By: #### M 8200.2203 #### [facility] [address] [place], [address] Lymphocytes/100 WBC (Bld) 19.8 % Normal 19-41 [facility] Comment on above: Performed By: #### M 8200.220 #### [facility] [address] [place], [address] MCH (RBC) [Entitic mass] 30.3 pg Normal 27.0-32.0 [facility] Comment on above: Performed By: #### M 8200.2202 #### [facility] [address] [place], [address] MCHC (RBC) [Mass/Vol] 33.1 g/dL Normal 32-36 [facility] Comment on above: Performed By: #### M 8200.2203 #### [facility] [address] [place], [address] MCV (RBC) [Entitic vol] 91.3 fL Normal 81-99 [facility] Comment on above: Performed By: #### M 8200.2203 #### [facility] [address] [place], [address] Monocytes/100 WBC (Bld) 4.6 % Normal 0-10 [facility] Comment on above: Performed By: #### M 8200.2203 #### [facility] [address] [place], [address] Neutrophils/100 WBC (Bld) 74.0 % High 47-70 [facility] Comment on above: Performed By: #### M 8200.2203 #### [facility] [address] [place], [address] Nucleated RBC (Bld) [#/Vol] 0 10*3/uL Normal 0-5 [facility] Comment on above: Performed By: #### 8200.2203 #### [facility] [address] [place], [address] Platelet mean volume (Bld) [Entitic vol] 10.4 fL Normal 6.2-12.0 [facility] Comment on above: Performed By: #### M 8200.2203 #### [facility] [address] [place], [address] Platelets (Bld) [#/Vol] 316 10*3/uL Normal 150-450 [facility] Comment on above: Performed By: #### Faiza 8200.220 #### [facility] [address] [place], [address] RBC (Bld) [#/Vol] 3.90 10*6/uL Low 4.2-5.4 [facility] Comment on above: Performed By: #### 8200.2203 #### [facility] [address] [place], [address] RDW SD 43.1 fl Normal 35.1-43.9 [facility] Comment on above: Performed By: #### 8200.2203 #### [facility] [address] [place], [address] WBC (Bld) [#/Vol] 11.3 10*3/uL High 4.4-11.0 [facility] Comment on above: Performed By: #### 8200.2203 #### [facility] [address] [place], [address] Eosinophil percentageOrdered By: Lizet Flynn on 11-30-2024 Eosinophils/100 WBC (Bld) 0.6 % 0-5 [facility] Erythrocyte distribution wid th (RBC) [Ratio]Ordered By: Lizet Flynn on 11-30-2024 Erythrocyte distribution width (RBC) [Entitic vol] 43.1 fL 35.1-43.9 [facility] Erythrocyte distribution wid th ratioOrdered By: Lizet Flynn on 11-30-2024 Erythrocyte distribution width (RBC) [Ratio] 13.1 % 11.6-14.6 [facility] Erythrocyte distribution wid th standard deviationOrdered By: Lizet Flynn on 11-30-2024 Erythrocyte distribution width (RBC) [Ratio] 43.1 fl 35.1-43.9 [facility] Glucose Challenge Gest 1H 50 jessica 11-30-2024 GLU GEST 50g 1H 119 mg/dL Normal 70-140 [facility] Comment on above: Performed By: #### Faiza 8200.2203 #### [facility] [address] [facility], [address] Glucose measurement at 2 breanne rs post-dose gestational glucose tolerance testOrdered By: Lizet Flynn on 11-30-2024 Glucose [Mass/Vol] 119 mg/dL 70-140 [facility] HIVon 11-30-2024 HIV Non-Reactive Normal Nonreactive [facility] Comment on above: Result Comment: Non- Reactive Reactive Repeatedly reactive samples must be confirmed according to CDC recommended confirmatory algorithms. The subresults for either HIVAG or AHIV can be used as an aid in the selection of the confirmation algorithm for reactive samples. Send out specimens with Reactive results to [facility] for confirmation. Order the HIV antibody detection and differentiation: #[id number] Performed By: #### Faiza 8200.2203 #### [facility] [address] [place], [address] Hematocrit Auto (Bld) [Volum e fraction]Ordered By: Lizet Flynn on 11-30-2024 Hematocrit (Bld) [Volume fraction] 35.6 % Low 37-47 [facility] Hemoglobin measurementOrdere d By: Lizet Flynn on 11-30-2024 Hemoglobin (Bld) [Mass/Vol] 11.8 g/dL Low 12.0-15.0 [facility] Immature granulocytes/100 WB C Auto (Bld)Ordered By: Lizet Flynn on 11-30-2024 Immature granulocytes/100 WBC (Bld) 0.700 % 0.0-0.9 [facility] Comment on above: IG% - Immature Granu locytes (promyelocytes, myelocytes and metamyelocytes) > 1% indicates that a LEFT SHIFT is Present. Laboratory - Chemistry and C hemistry - challengeOrdered By: Bernarda Weber on 11-30-2024 Glucose Ql (U) Negative [facility] - UrinalysisOrder ed By: Bernarda Weber on 11-30-2024 Protein Ql (U) Negative [facility] Lymphocytes Auto (Unsp spec) [#/Vol]Ordered By: Lizet Flynn on 11-30-2024 Lymphocytes (Bld) [#/Vol] 2.25 10*3/uL 0.83-4.5 1 [facility] Lymphocytes/100 WBC Auto (Un sp spec)Ordered By: Lizet Flynn on 11-30-2024 Lymphocytes/100 WBC (Bld) 19.8 % 19-41 [facility] MCV (mean corpuscular volume ) determinationOrdered By: Lizet Flynn on 11-30-2024 MCV (RBC) [Entitic vol] 91.3 fL 81-99 [facility] Mean corpuscular hemoglobin (MCH) determinationOrdered By: Lizet Flynn on 11-30-2024 MCH (RBC) [Entitic mass] 30.3 pg 27.0-32.0 [facility] Mean corpuscular hemoglobin concentration (MCHC) determinationOrdered By: Lizet Flynn on 11-30-2024 MCHC (RBC) [Mass/Vol] 33.1 g/dL 32-36 [facility] Mean platelet volume determi nationOrdered By: Lizet Flynn on 11-30-2024 Platelet mean volume (Bld) [Entitic vol] 10.4 fL 6.2-12.0 [facility] Monocyte percentageOrdered B y: Lizet Flynn on 11-30-2024 Monocytes/100 WBC (Bld) 4.6 % 0-10 [facility] Neutrophil percentageOrdered By: Lizet Flynn on 11-30-2024 Neutrophils/100 WBC (Bld) 74.0 % High 47-70 [facility] No Panel InformationOrdered By: Lizet Flynn on 11-30-2024 HIV (1&2) Antibody Non-Reactive Nonreactive [facility] Comment on above: Non-ReactiveReactive Repeatedly reactive samples must be confirmed according to CDC recommended confirmatory algorithms. The subresults for either HIVAG or AHIV can be used as an aid in the selection of the confirmation algorithm for reactive samples.Send out specimens with Reactive results to [facility] for confirmation.Order the HIV antibody detection and differentiation: #[id number] Nucleated red blood cell per centageOrdered By: Lizet Flynn on 11-30-2024 Nucleated RBC/100 WBC (Bld) [Ratio] 0 % 0-5 [facility] Global President Office Visit Reporton 11-30-2024 Global President Office Visit Report [facility] [address], [address] [place] [address] OFFICE VISIT Date of Service: 11/30/24 MR#: [id number] Acct: [id number] Name: ERIKA PINEDA Rep #: [id number] : 2005 Provider: MANINDER Norris ams Age/Sex: 19/F Location: [facility] [place] Status: Signed Intake Vital Signs 08/13/24 08:33 11/19/24 11:09 11/30/24 10:17 Height 5 ft 1 in 5 ft 1 in 5 ft 1 in Weight: 173 lb BMI 32.6 BP 101/68 Intake Visit Reasons: 28 wk ob/glucose Chief Complaint: 28wk OB Mule Operator Required: No Is patient in pain?: No [...] family current occupational status: employed current occupation: [employer] pets and animals: Yes (Avoid litterbox) pets [...] physical activity do you participate in: none susana/episcopalian: None seatbelt use: always do you feel [...] -???-???-???-???-?? ?-???-???-??? (more content not included)... Normal [facility] Platelet countOrdered By: Bubba Flynn on 11-30-2024 Platelets (Bld) [#/Vol] 316 10*3/uL 150-450 [facility] RBC Auto (Bld) [#/Vol]Ordere d By: Lizet Flynn on 11-30-2024 RBC (Bld) [#/Vol] 3.90 10*6/uL Low 4.2-5.4 [facility] Syphilis Antibodieson 2024 Syphilis Abs Non-Reactive Normal Nonreactive [facility] Comment on above: Performed By: #### M 8200.2203 #### [facility] [address] [facility], [address] T. pallidum abOrdered By: Bubba Flynn on 11-30-2024 Syphilis Total Antibody Non-Reactive Nonreactiv e [facility] White blood cell (WBC) count Ordered By: Lizet Flynn on 11-30-2024 WBC (Bld) [#/Vol] 11.3 10*3/uL High 4.4-11.0 [facility] Laboratory - Chemistry and C hemistry - challengeOrdered By: Bernarda Weber on 11-19-2024 Glucose Ql (U) Negative [facility] - UrinalysisOrder ed By: Bernarda Weber on 11-19-2024 Protein Ql (U) Negative [facility] Global President Office Visit Reporton 11-19-2024 Global President Office Visit Report [facility] [address], [address] [place] [address] OFFICE VISIT Date of Service: 11/19/24 MR#: [id number] Acct: [id number] Name: ERIKA PINEDA Rep #: [id number] : 2005 Provider: MANINDER Norris ams Age/Sex: 19/F Location: [facility] [place] Status: Signed Intake Vital Signs 11/09/24 11:22 04/03/25 11:08 11/19/24 11:09 Height 5 ft 1 in 5 ft 1 in 5 ft 1 in Weight: 174 lb BMI 32.8 BP 99/65 Intake Visit Reasons: decreased movement 26wk5d Chief Complaint: Decreased Movement Mule Operator Required: No Is patient in pain?: No [...] family current occupational status: employed current occupation: [employer] pets and animals: Yes (Avoid litterbox) pets [...] physical activity do you participate in: none susana/episcopalian: None seatbelt use: always do you feel [...] scan reviewed (more content not included)... Normal [facility] Laboratory - Chemistry and C hemistry - challengeOrdered By: Lizet Flynn on 11-09-2024 Glucose Ql (U) Negative [facility] - UrinalysisOrder ed By: Lizet Flynn on 11-09-2024 Protein Ql (U) Negative [facility] Global President Office Visit Reporton 11-09-2024 Global President Office Visit Report [facility] [address], [address] [place] [address] OFFICE VISIT Date of Service: 11/09/24 MR#: [id number] Acct: [id number] Name: ERIKA PINEDA Rep #: [id number] : 2005 Provider: Dr. Lizet Alvarez DO Age/Sex: 19/F Location: [facility] [place] Status: Signed Intake Vital Signs 08/13/24 08:33 10/08/24 09:34 11/09/24 11:20 11/09/24 11:22 Height 5 ft 1 in 5 ft 1 in 5 ft 1 in 5 ft 1 in Weight: 170 lb 8 oz BMI 32.2 BP 101/63 Intake Visit Reasons: 24 wk ob Mule Operator Required: No Is patient in pain?: No [...] family current occupational status: employed current occupation: [employer] pets and animals: Yes (Avoid litterbox) pets [...] physical activity do you participate in: none susana/episcopalian: None seatbelt use: always do you feel [...] -???-???-???-???-?? ?-???-???-?? (more content not included)... Normal [facility] ED MED ADMINISTRATION DETAIL on 10-18-2024 ED MED ADMINISTRATION DETAIL Medical Insurance Claims Specialist Medication Administration Record [place] [address] [place] [address] [id number] 10/12/2024 Patient: ERIKA PINEDA Sex: Female : [...] 06:27 Dylan Hill R.N. 1 of 2 Medical Insurance Claims Specialist Medication Ordered Medication Administration Date/Time Acetaminophen 06:10/12 Acetaminophen (Tylenol) PO 975 mg given. Allergies Given (Tylenol) PO 975 verified and confirmed 5 rights. Information reviewed with patient 06:27 10/12/2024 mg (NOW x1) including sedative warning. Verbalizes understanding. (11/26 Dylan Hill R.N. generalized pain). - 06:30 Dylan Hill R.N. Scanned 2 of 2 Normal [facility] ED NURSES CLINICAL NOTEon ED NURSES CLINICAL NOTE Nurse Narrative Nurse Clinical Narrative [address] [place] [address] [phone] 10/12/2024 Patient: ERIKA PINEDA Sex: Female : 2005 Age: 19y Primary Insurance: [employer] OUTPATIENT Policy Number: [id number] Group Number: [id number] Subscriber: Other Secondary Insurance: [employer] [facility] OUT[facility] Policy Number: [id number] Group Number: [id number] Subscriber: Other Disposition: Discharge to Home Disposition [...] (11/26 generaliz (more content not included)... Normal [facility] ED ORDER SHEET (CPOE ONLY)on 10-18-2024 ED ORDER SHEET (CPOE ONLY) Order Sheet Order Sheet [address] [address] [id number] 10/12/2024 [id number] Sex: Female : 2005 Age: 19y MEASUREMENTS: [...] 07:09 10/12/2024 Dylan Saldivar Brittany D.O. R.N. [place] BMP Stat Stat 06:11 10/12/2024 06:21 10/12/2024 [...] (10/12/2024 07:10 EST)] 3 of 3 Normal [facility] ED PHYSICIAN CLINICAL REPORT on 10-18-2024 ED PHYSICIAN CLINICAL REPORT Narrative Physician Clinical Narrative [address] [address] [id number] 10/12/2024 Patient: ERIKA PINEDA Sex: Female : 2005 Age: 19y Primary Insurance: [employer] OUTPATIENT Policy Number: [id number] Group Number: [id number] Subscriber: Other Secondary Insurance: [employer] [facility] OUTPATIENT Policy Number: [id number] Group Number: [id number] Subscriber: Other Measurements Wt: 76.7 kg, Ht/Bennett: [...] fluid. Reports he [facility] [place] [facility] thus far in .). [...] She wa (more content not included)... Normal [facility] ED [facility] 10-18-2024 ED [facility] [address] [place] [address] [phone] 10/12/2024 Patient: ERIKA PINEDA Sex: Female : 2005 Age: 19y Item Facility Professional Category Description Code Code Quantity Fee Total Drugs Normal Saline 341330 1 $0.00 $0.00 1000cc (508136) Nurse/E/M EMERGENCY 106252 1 $0.00 $0.00 DEPARTMENT VISIT HIGH/URGENT SEVERITY (87970-72) Nurse/IV/IM/Infusio ns Hydration 074508 1 $0.00 $0.00 additional hour (44172) Nurse/IV/IM/Infusio ns IVP initial 357991 1 $0.00 $0.00 (60487) Grand Total $0.00 Providers Aidee Saldivar M.D. 1 of 2 [place] Chief Complaint CHEST PAIN. Principal Diagnoses Influenza type A with upper respiratory infection. Probable costochondritis Vomiting with nausea. influenza A. ICD-10 Codes J11.1: Influenza due to unidentified influenza virus with other respiratory manifestations J06.9: Acute upper respiratory infection, unspecified R11.2: Nausea with vomiting, unspecified 2 of 2 Normal [facility] ED VISIT SUMMARYon ED VISIT SUMMARY Visit Overview Visit Overview [address] [place] [address] [phone] 10/12/2024 Patient: ERIKA PINEDA Sex: Female : [...] VOMITING WITH NAUSEA 3 of 3 Normal [facility] ED VITALS FLOW SHEETon 10-18 ED VITALS FLOW SHEET Vitals Vital Sign Flow Sheet [address] [address] [id number] 10/12/2024 Patient: ERIKA PINEDA Sex: Female : [...] 100.3 F 7 2 of 2 Normal [facility] BMP with eGFRon 10-12-2024 AGE 19 years Normal [facility] Comment on above: Performed By: #### 2 40778 #### [facility],[address] [place] [address] Anion gap [Moles/Vol] 18 mmol/L Normal - [facility] Comment on above: Performed By: #### 2 18155 #### [facility],[address] [place], [place] [id number] BMP with eGFR Normal [facility] Comment on above: Result Comment: BASI C METABOLIC PANEL Performed By: #### 2 98127 #### [facility],[address] [place], [place] [id number] Calcium [Mass/Vol] 8.8 mg/dL Normal 8.5 - 10.1 [facility] Comment on above: Performed By: #### 2 89032 #### [facility],[address] [place], [place] [id number] Chloride [Moles/Vol] 102 mmol/L Normal 98 - 107 [facility] Comment on above: Performed By: #### 2 71825 #### [facility],[address] [place], [place] [id number] CO2 [Moles/Vol] 20.4 mmol/L Low 21.0 - 32.0 [facility] Comment on above: Performed By: #### 2 24453 #### [place] [id number] Creatinine [Mass/Vol] 0.62 mg/dL Normal 0.55 - 1.[address] [facility] Comment on above: Performed By: #### 2 81636 #### [place] [id number] GFR/1.73 sq M.predicted among non-blacks MDRD (S/P/Bld) [Vol rate/Area] mL/min/{1.73_m2} Normal 60 - 999 [facility] Comment on above: Performed By: #### 2 27232 #### [facility],[address] [place] [address] Result Comment: ACCO RDING TO THE NATIONAL KIDNEY DISEASE EDUCATION PROGRAM(NKDE), A NORMAL eGFR IS A VALUE GREATER THAN OR EQUAL TO 60 ML/MIN/1.73 SQ METERS. CHRONIC KIDNEY DISEASE: <60mL/MIN/1.73 SQ METERS KIDNEY FAILURE: <15mL/MIN/1.73 SQ METERS THIS TEST SHOULD ONLY BE USED FOR PATIENTS 18 YEARS OF AGE AND OLDER. Glucose [Mass/Vol] 74 mg/dL Normal 74 - 106 [facility] Comment on above: Performed By: #### 2 36698 #### [facility],[address] [place] [address] Potassium [Moles/Vol] 3.2 mmol/L Low 3.5 - 5.1 [facility] Comment on above: Performed By: #### 2 12606 #### [facility],[address] [place] [address] Sodium [Moles/Vol] 137 mmol/L Normal 136 - 145 [facility] Comment on above: Performed By: #### 2 63300 #### [facility],[address] [place] [address] Urea nitrogen [Mass/Vol] 8 mg/dL Normal 7 - 18 [facility] Comment on above: Performed By: #### 2 18252 #### [facility],[address] [place] [address] CBC + DIFFon 10-12-2024 Baso # 0.03 x10EE3/UL Normal 0.00 - 0.10 [facility] Comment on above: Performed By: #### 2 26052 #### [facility],[address] [place] [address] Basophils/100 WBC (Bld) 0.3 % Normal 0.0 - 2.0 [facility] Comment on above: Performed By: #### 2 45438 #### [facility],[address] [place], [place] [id number] CBC + DIFF Normal [facility] Comment on above: Result Comment: CBC- COMPLETE BLOOD COUNT Performed By: #### 2 61127 #### [facility],[address] [place] [address] EO # 0.03 x10EE3/UL Normal 0.00 - 0.50 [facility] Comment on above: Performed By: #### 2 18953 #### [facility],[address] [place] [address] Eosinophils/100 WBC (Bld) 0.4 % Normal 0.0 - 7.0 [facility] Comment on above: Performed By: #### 2 41991 #### [facility],[address] [place] [address] Erythrocyte distribution width (RBC) [Ratio] 13.3 % Normal 12.0 - 15.6 [facility] Comment on above: Performed By: #### 2 08153 #### [facility],[address] [place] [address] Hematocrit (Bld) [Volume fraction] 36.0 % Normal 34.0 - 46.0 [facility] Comment on above: Performed By: #### 2 73403 #### [facility],[address] [place] [address] Hemoglobin (Bld) [Mass/Vol] 12.4 g/dL Normal 12.0 - 16.0 [facility] Comment on above: Performed By: #### 2 37181 #### [facility],[address] [place] [address] Lymph # 1.07 x10EE3/UL Normal 0.80 - 2.80 [facility] Comment on above: Performed By: #### 2 10017 #### [facility],[address] [place], [place] [id number] Lymphocytes/100 WBC (Bld) 12.5 % Low 20.0 - 45. 0 [facility] Comment on above: Performed By: #### 2 72871 #### [facility],[address] [place], [place] [id number] MANUAL DIFF N/A Normal [facility] Comment on above: Performed By: #### 2 05995 #### [facility],[address] [place] [address] MCH (RBC) [Entitic mass] 30 pg Normal 27 - 33 [facility] Comment on above: Performed By: #### 2 09617 #### [facility],[address] [place] [address] MCHC 34 X10 3 Normal 32 - 36 [facility] Comment on above: Performed By: #### 2 32733 #### [facility],[address] [place] [address] MCV (RBC) [Entitic vol] 88 fL Normal 80 - 99 [facility] Comment on above: Performed By: #### 2 75385 #### [facility],[address] [place] [address] Clinch # 0.48 x10EE3/UL Normal 0.20 - 1.00 [facility] Comment on above: Performed By: #### 2 96987 #### [facility],[address] [place] [address] MONOS % 5.6 % Normal 0.0 - 10.0 [facility] Comment on above: Performed By: #### 2 65350 #### [facility],[address] [place] [address] Morphology Juvencio (Bld) [Interp] N/A Normal [facility] Comment on above: Performed By: #### 2 93293 #### [facility],[address] [place] [address] Neut # 6.95 x10EE3/UL Normal 1.50 - 7.10 [facility] Comment on above: Performed By: #### 2 27085 #### [facility],[address] [place] [address] Neutrophils/100 WBC (Bld) 81.3 % High 46.0 - 76. 0 [facility] Comment on above: Performed By: #### 2 08495 #### [facility],[address] [place] [address] PLATELET 313 x10EE3/UL Normal 150 - 450 [facility] Comment on above: Performed By: #### 2 55202 #### [facility],[address] [place] [address] Platelet mean volume (Bld) [Entitic vol] 8.1 fL Normal 6.6 - 10.5 [facility] Comment on above: Result Comment: AUTO MATED DIFFERENTIAL Performed By: #### 2 68517 #### [facility],[address] [place] [address] RBC 4.07 x 10EE6/UL Low 4.10 - 5.30 [facility] Comment on above: Performed By: #### 2 26950 #### [facility],[address] [place] [address] WBC 8.6 x 10EE3/UL Normal 4.5 - 10.8 [facility] Comment on above: Performed By: #### 2 56218 #### [facility],[address] [place] [address] CHEST 2 VIEWSon 10-12-2024 CHEST 2 VIEWS [place] [address] Patient: ERIKA PINEDA Phone#: : 2005 Age: 19 Gender: F Pt. Type: ER Account: [id number] Location: [facility] Ordering: DR. ALEX WATSON Exam Date: 10/12/2024/6:28 Family Phys: Charge Code: 307255 Physician: [place] Order #: [id number] Dose#: PROCEDURE: X-RAY CHEST 2 VIEWS COMPARISON: [...] Gutierrez MD on 10/12/2024 at 13:04 Normal [facility] TROPONINon 10-12-2024 HS TROPONIN <4.0 Normal 0.0 - 51.4 [facility] Comment on above: Performed By: #### 2 [id number] #### [facility],[address] [place] [id number] CNOVon 10-11-2024 CNOV Office Visit (UCWSTR) ---- ERIKA PINEDA ([id number]) 1 F Date Time Provider Department 10/11/24 11:00 AM IKER MORROW [facility] During your visit today, we recorded the following information about you: Temperature Pulse Respiration Blood pressure 99.6 degrees 107/minute 20/minute 116/68 Weight 75.7 kg Iker Morrow APRN.LITHOGRAPH PRINTER 10/11/2024 11:45 AM Signed CC: Patient presents [...] Patient agreeable to treatment plan. Iker Morrow APRN.LITHOGRAPH PRINTER Referring Provider: SELF [200] Allergies As of Date: 10/11/2024 (No Known Allergies) Date Reviewed: 10/11/2024 Reviewed by: Lashell Lockhart MA - Fully Assessed Reason for Visit: Shortness of Breath [227] Cmt: Cough, chest congestion, low fever x last night Primary Visit Diagnosis:Sore throat [J02.9] Other Visit Diagnosis:URI, acute [J06.9] Order(s):STREP A MOLECULAR (POC) [3718460] Order #: [id number]. #:[id number] INFLUENZA AANDB MOLECULAR (POC) [8737770] Order #: [id number] COVID AND INFLUENZA A/B AND RSV PCR, ROUTINE [SQCVFLRS] Order #: [id number]. #:[id number] oseltamivir (TAMIFLU) 75 mg capsuleTake 1 capsule by mouth two times a day for 5 days.Disp: 10 capsuleRfl: 0 Prescriptions as of 10/11/2024 - vit no.124/iron/folic ( VITAMIN ORAL) Take by mouth. (more content not included)... Normal [facility] STREP A MOLECULAR (POC)on Procedural Control Valid [facility] Strep A (POCT) Negative Negative [facility] Global President Office Visit Reporton 10-08-2024 Global President Office Visit Report [facility] [address], [address] [place] [address] OFFICE VISIT Date of Service: 10/08/24 MR#: [id number] Acct: [id number] Name: ERIKA PINEDA Rep #: [id number] : 2005 Provider: MANINDER Norris ams Age/Sex: 19/F Location: [facility] Status: Signed Intake Vital Signs 08/13/24 08:33 [...] family current occupational status: employed current occupation: [employer] pets and animals: Yes (Avoid litterbox) pets [...] physical activity do you participate in: none susana/episcopalian: None seatbelt use: always do you feel [...] 107/55 -???-???-??? (more content not included)... Normal [facility] Laboratory - Chemistry and C hemistry - challengeon 09-11-2024 Glucose Ql (U) Negative [facility] Laboratory - Urinalysison Protein Ql (U) Negative [facility] Global President Office Visit Reporton 09-11-2024 Global President Office Visit Report [facility] [address], [address] [place] [address] OFFICE VISIT Date of Service: 09/11/24 MR#: [id number] Acct: [id number] Name: ERIKA PINEDA Rep #: [id number] : 2005 Provider: MANINDER Norris ams Age/Sex: 19/F Location: [facility] [place] Status: Signed Intake Vital Signs 08/13/24 08:33 08/24/24 10:42 09/11/24 11:09 Height 5 ft 1 in 5 ft 1 in 5 ft 1 in Weight: 161 lb 2 oz BMI 30.4 BP 116/72 Intake Visit Reasons: 16 wk ob Mule Operator Required: No Is patient in pain?: No [...] family current occupational status: employed current occupation: [employer] pets and animals: Yes (Avoid litterbox) pets [...] physical activity do you participate in: none susana/episcopalian: None seatbelt use: always do you feel [...] Discussed B (more content not included)... Normal [facility] Laboratory - Chemistry and C hemistry - challengeon 08-24-2024 Glucose Ql (U) Negative [facility] Laboratory - Urinalysison Protein Ql (U) Negative [facility] Global President Office Visit Reporton 08-24-2024 Global President Office Visit Report [facility] [address], [address] [place] [address] OFFICE VISIT Date of Service: 08/24/24 MR#: [id number] Acct: [id number] Name: ERIKA PINEDA Rep #: [id number] : 2005 Provider: Dr. Mar lim MD Age/Sex: 19/F Location: [facility] [place] [facility] Status: Signed Intake Vital Signs 08/22/24 12:27 08/24/24 10:40 08/24/24 10:42 Height 5 ft 1 in 5 ft 1 in 5 ft 1 in Weight: 163 lb BMI 30.8 BP 112/76 Intake Visit Reasons: 14w2d ER follow up Mule Operator Required: No Allergies No Known Allergies Allergy [...] family current occupational status: employed current occupation: [employer] pets and animals: Yes (Avoid litterbox) pets [...] physical activity do you participate in: none susana/episcopalian: None seatbelt use: always do you feel [...] Violence; Discuss (more content not included)... Normal [facility] Emergency Department Summary on 2024 Emergency Department Summary [facility] Medical Records Department [address] [place] [address] Emergency Department Summary 08/22/24 MR#: [id number] Acct: [id number] Name: ERIKA PINEDA Rep #: [id number] : 2005 19 From: Jonathon Vines MD [...] 19-year-old female around 14 weeks, follows with [facility] has already had an ultrasound showing intrauterine , presenting with cramping and bleeding that started today. No syncope or presyncope. Unknown blood type. [facility] Medical History Irregular menstrual bleeding Seasonal allergies [...] family current occupational status: employed current occupation: [employer] pets and animals: Yes (Avoid litterbox) pets [...] physical activity do you participate in: none susana/episcopalian: None seatbelt use: always do you feel [...] MDM Narrativ (more content not included)... Normal [facility] Absolute neutrophil countOrd ered By: Bernarda Weber on 08-13-2024 Neutrophils (Bld) [#/Vol] 6.6 10*3/uL 2.0-7.7 [facility] Basophil percentageOrdered B y: Bernarda Weber on 08-13-2024 Basophils/100 WBC (Bld) 0.4 % 0-1 [facility] CBC W/Diff, Automatedon 07-20 Absolute Lymph 3.20 X10 3/uL Normal 0.83-4.51 [facility] Comment on above: Performed By: #### M 8200.2203 #### [facility] [address] [place], [address] Absolute Neut 6.6 X10 3/uL Normal 2.0-7.7 [facility] Comment on above: Performed By: #### M 8200.2203 #### [facility] [address] [place], [address] Basophils/100 WBC (Bld) 0.4 % Normal 0-1 [facility] Comment on above: Performed By: #### M 8200.2203 #### [facility] [address] [place], [address] Eosinophils/100 WBC (Bld) 0.5 % Normal 0-5 [facility] Comment on above: Performed By: #### M 8200.2203 #### [facility] [address] [place], [address] Erythrocyte distribution width (RBC) [Ratio] 12.9 % Normal 11.6-14.6 [facility] Comment on above: Performed By: #### M 8200.2203 #### [facility] [address] [place], [address] Hematocrit (Bld) [Volume fraction] 38.0 % Normal 37-47 [facility] Comment on above: Performed By: #### 8200.2203 #### [facility] [address] [place], [address] Hemoglobin (Bld) [Mass/Vol] 12.7 g/dL Normal 12.0-15.0 [facility] Comment on above: Performed By: #### 8200.2203 #### [facility] [address] [place], [address] IG% 0.400 Normal 0.0-0.9 [facility] Comment on above: Result Comment: IG% - Immature Granulocytes (promyelocytes, myelocytes and metamyelocytes) > 1% indicates that a LEFT SHIFT is Present. Performed By: #### M 8200.2203 #### [facility] [address] [place], [address] Lymphocytes/100 WBC (Bld) 30.4 % Normal 19-41 [facility] Comment on above: Performed By: #### M 8200.2203 #### [facility] [address] [place], [address] MCH (RBC) [Entitic mass] 30.0 pg Normal 27.0-32.0 [facility] Comment on above: Performed By: #### 8200.220 #### [facility] [address] [place], [address] MCHC (RBC) [Mass/Vol] 33.4 g/dL Normal 32-36 [facility] Comment on above: Performed By: #### 8200.220 #### [facility] [address] [place], [address] MCV (RBC) [Entitic vol] 89.6 fL Normal 81-99 [facility] Comment on above: Performed By: #### 8200.2202 #### [facility] [address] [place], [address] Monocytes/100 WBC (Bld) 5.1 % Normal 0-10 [facility] Comment on above: Performed By: #### 8200.2202 #### [facility] [address] [place], [address] Neutrophils/100 WBC (Bld) 63.2 % Normal 47-70 [facility] Comment on above: Performed By: #### 8200.2202 #### [facility] [address] [place], [address] Nucleated RBC (Bld) [#/Vol] 0 10*3/uL Normal 0-5 [facility] Comment on above: Performed By: #### M 8200.220 #### [facility] [address] [place], [address] Platelet mean volume (Bld) [Entitic vol] 10.5 fL Normal 6.2-12.0 [facility] Comment on above: Performed By: #### 8200.220 #### [facility] [address] [place], [address] Platelets (Bld) [#/Vol] 340 10*3/uL Normal 150-450 [facility] Comment on above: Performed By: #### M 8200.2203 #### [facility] [address] [place], [address] RBC (Bld) [#/Vol] 4.24 10*6/uL Normal 4.2-5.4 [facility] Comment on above: Performed By: #### M 8200.2203 #### [facility] [address] [place], [address] RDW SD 42.4 fl Normal 35.1-43.9 [facility] Comment on above: Performed By: #### M 8200.2203 #### [facility] [address] [place], [address] WBC (Bld) [#/Vol] 10.5 10*3/uL Normal 4.4-11.0 [facility] Comment on above: Performed By: #### M 8200.2203 #### [facility] [address] [place], [address] Eosinophil percentageOrdered By: Bernarda Weber on 08-13-2024 Eosinophils/100 WBC (Bld) 0.5 % 0-5 [facility] Erythrocyte distribution wid th (RBC) [Ratio]Ordered By: Bernarda Weber on 08-13-2024 Erythrocyte distribution width (RBC) [Entitic vol] 42.4 fL 35.1-43.9 [facility] Erythrocyte distribution wid th ratioOrdered By: Bernarda Weber on 08-13-2024 Erythrocyte distribution width (RBC) [Ratio] 12.9 % 11.6-14.6 [facility] HIV - WCHon 08-13-2024 HIV Non-Reactive Normal Nonreactive [facility] Comment on above: Order Comment: Reaso n for Exam: Performed By: #### M 8200.2203 #### [facility] [address] [place], [address] HIV 1+2 Ab+HIV1 p24 Ag IA Ql Ordered By: Bernarda Weber on 08-13-2024 HIV (1&2) Antibody Non-Reactive Nonreactive [facility] Hematocrit Auto (Bld) [Volum e fraction]Ordered By: Bernarda Weber on 08-13-2024 Hematocrit (Bld) [Volume fraction] 38.0 % 37-47 [facility] Hemoglobin measurementOrdere d By: Bernarda Weber on 08-13-2024 Hemoglobin (Bld) [Mass/Vol] 12.7 g/dL 12.0-15.0 [facility] Hepatitis B Surface Antigeno n 08-13-2024 HEP B Surf Ag Non-Reactive Normal Nonreactive [facility] Comment on above: Order Comment: Reaso n for Exam: Performed By: #### M 8200.2203 #### [facility] [address] [place], [address] Hepatitis B surface antigen detectionOrdered By: Bernarda Weber on 08-13-2024 Hepatitis B Surface Antigen Non-Reactive Nonreactive [facility] Hepatitis C Antibodyon 08-13 Hepatitis C AB Non-Reactive Normal [facility] Comment on above: Order Comment: Reaso n for Exam: Result Comment: Non Reactive: < 0.8 Equivocal: >/= 0.8 to < 1.0 Reactive: >/= 1.0 The [facility] requires that a reactive/equivocal HCV antibody result be sent out for confirmation. HCV Quant by PCR testing. Performed By: #### M 8200.2203 #### [facility] [address] [place], [address] Hepatitis C virus antibody a ssayOrdered By: Bernarda Weber on 08-13-2024 Hepatitis C Antibody Non-Reactive Nonreactive [facility] Comment on above: Non Reactive: < 0.8 Equivocal: >/= 0.8 to < 1.0 Reactive: >/= 1.0The CDC requires that a reactive/equivocal HCV antibody result be sent out for confirmation. HCV Quant by PCR testing. Immature granulocytes/100 WB C Auto (Bld)Ordered By: Bernarda Weber on 08-13-2024 Immature granulocytes/100 WBC (Bld) 0.400 % 0.0-0.9 [facility] Comment on above: IG% - Immature Granu locytes (promyelocytes, myelocytes and metamyelocytes) > 1% indicates that a LEFT SHIFT is Present. L509.8000on 08-13-2024 Syphilis Abs Non-Reactive Normal [facility] Comment on above: Order Comment: Reaso n for Exam: Performed By: #### M 8200.2203 #### [facility] [address] [place], [address] Laboratory - Chemistry and C hemistry - challengeon 08-13-2024 Glucose Ql (U) Negative [facility] Laboratory - Urinalysison Protein Ql (U) Negative [facility] Lymphocytes Auto (Unsp spec) [#/Vol]Ordered By: Bernarda Weber on 08-13-2024 Lymphocytes (Bld) [#/Vol] 3.20 10*3/uL 0.83-4.5 1 [facility] Lymphocytes/100 WBC Auto (Un sp spec)Ordered By: Bernarda Weber on 08-13-2024 Lymphocytes/100 WBC (Bld) 30.4 % 19-41 [facility] MCV (mean corpuscular volume ) determinationOrdered By: Bernarda Weber on 08-13-2024 MCV (RBC) [Entitic vol] 89.6 fL 81-99 [facility] Mean corpuscular hemoglobin (MCH) determinationOrdered By: Bernarda Weber on 08-13-2024 MCH (RBC) [Entitic mass] 30.0 pg 27.0-32.0 [facility] Mean corpuscular hemoglobin concentration (MCHC) determinationOrdered By: Bernarda Weber on 08-13-2024 MCHC (RBC) [Mass/Vol] 33.4 g/dL 32-36 [facility] Mean platelet volume determi nationOrdered By: Bernarda Weber on 08-13-2024 Platelet mean volume (Bld) [Entitic vol] 10.5 fL 6.2-12.0 [facility] Monocyte percentageOrdered B y: Bernarda Weber on 08-13-2024 Monocytes/100 WBC (Bld) 5.1 % 0-10 [facility] Neutrophil percentageOrdered By: Bernarda Weber on 08-13-2024 Neutrophils/100 WBC (Bld) 63.2 % 47-70 [facility] Nucleated red blood cell per centageOrdered By: Bernarda Weber on 08-13-2024 Nucleated RBC/100 WBC (Bld) [Ratio] 0 % 0-5 [facility] Global President Office Visit Reporton 08-13-2024 Global President Office Visit Report [facility], [address] [place] [address] OFFICE VISIT Date of Service: 08/13/24 MR#: [id number] Acct: [id number] Name: ERIKA PINEDA Rep #: [id number] : 2005 Provider: HERI moore Age/Sex: 18/F Location: [facility] [place] Status: Signed Intake Vital Signs 04/27/24 14:11 07/15/24 08:55 08/13/24 08:33 Height 5 ft 1 in 5 ft 1 in 5 ft 1 in Weight: 162 lb 6 oz BMI 30.7 BP 122/71 H Intake Visit Reasons: 12wk OB Mule Operator Required: No Is patient in pain?: No [...] family current occupational status: employed current occupation: [employer] pets and animals: Yes (Avoid litterbox) pets [...] physical activity do you participate in: none susana/episcopalian: None seatbelt use: always do you feel safe at home: Yes additional social history: BF Richard- [employer] History 1 Elective abortions Hx Para 0 Spontaneous abortions Hx # Term Pregnancies Ectopic pregnancies Hx # Pregnancies Multiple births # of living children HPI 12wk OB Details: EIRKA PINEDA is a 18 year old who [...] and Symptoms of Preeclampsia, Feeding Yes , [place] (more content not included)... Normal [facility] Platelet countOrdered By: Gustavo Weber on 08-13-2024 Platelets (Bld) [#/Vol] 340 10*3/uL 150-450 [facility] RBC Auto (Bld) [#/Vol]Ordere d By: Bernarda Weber on 08-13-2024 RBC (Bld) [#/Vol] 4.24 10*6/uL 4.2-5.4 [facility] Rubella IgGon 08-13-2024 Rubella IgG Reactive Normal Nonreactive [facility] Comment on above: Order Comment: Reaso n for Exam: Result Comment: Anti body Results Interpretation of Immune Status Non Reactive Presumed Non-Immune Equivocal Equivocal Reactive Presumed Immune Performed By: #### M 8200.2203 #### [facility] [address], [place], [id number] Rubella immune status IgGOrd ered By: Bernarda Weber on 08-13-2024 Rubella IgG Antibody Reactive Nonreactive [facility] Comment on above: Antibody Results Int erpretation of Immune Status Non Reactive Presumed Non-Immune Equivocal Equivocal Reactive Presumed Immune Treponema sp Ab Ql (S)Ordere d By: Bernarda Weber on 08-13-2024 Syphilis Total Antibody Non-Reactive [facility] Type AND Screenon 08-13-2024 ABO and Rh group Nom (Bld) Blood group O Rh(D) positive Normal [facility] Comment on above: Order Comment: PN Performed By: #### M 100.3400 #### [facility] [address] [facility] [place], [place], [address] White blood cell (WBC) count Ordered By: Bernarda Weber on 08-13-2024 WBC (Bld) [#/Vol] 10.5 10*3/uL 4.4-11.0 [facility] Chlamydia/GC PAULA aptimaon CHLAMY,NUC ACID Negative Normal Negative [facility] Comment on above: Performed By: #### L 501.0900, L501.4405, L501.1400, L501.4100, L501.1105, L100.0500 #### [facility] [address] [place], [place], [address] GC BY NUC ACID Negative Normal Negative [facility] Comment on above: Result Comment: Perf ormed at: =G - [facility] [address] [id number] Safety Compliance Specialist: Vi Flores MD, Phone: [phone] Performed By: #### L 501.0900, L501.4405, L501.1400, L501.4100, L501.1105, L100.0500 #### [facility] [address] [place], [place], [id number] Urine Cultureon 07-17-2024 [facility] Below infection level. Mixed Gram Positive Organisms [place] Count 1000-10,000 [facility] Mixed contaminants. Submit a new specimen if indicated. Normal [facility] Comment on above: Performed By: #### L 501.0900, L501.4405, L501.1400, L501.4100, L501.1105, L100.0500 #### [facility] [address] [place], [place], [address] Global President Office Visit Reporton 07-15-2024 Global President Office Visit Report [facility] [address], [address] [place] [address] OFFICE VISIT Date of Service: 07/15/24 MR#: [id number] Acct: [id number] Name: ERIKA PINEDA DOUGLAS Rep #: [id number] : 2005 Provider: MANINDER Norris ams Age/Sex: 18/F Location: [facility] Status: Signed Intake Vital Signs 04/27/24 14:11 07/15/24 08:55 Height 5 ft 1 in 5 ft 1 in Weight: 162 lb BMI 30.6 BP 127/78 H Intake Visit Reasons: NOB LMP 05/16 Mule Operator Required: No Is patient in pain?: No [...] No current occupational status: employed current occupation: [employer] pets and animals: Yes (Avoid litterbox) pets [...] physical activity do you participate in: none susana/episcopalian: None seatbelt use: always do you feel [...] History of (more content not included)... Normal [facility] DHEA Sulfateon 05-03-2024 DHEA SULFATE 446.0 ug/dL High 110.0-431.7 [facility] Comment on above: Order Comment: N Performed By: #### M 100.3400 #### [facility] [address] [facility] [place], [place], [address] HSV 1 AND 2 IgGon 05-03-2024 HSV 1 IgG < 0.91 Normal 0.00-0.90 [facility] Comment on above: Order Comment: N Result Comment: Nega tive <0.91 Equivocal 0.91 - 1.09 Positive >1.09 Note: Negative indicates no antibodies detected to HSV-1. Equivocal may suggest early infection. If clinically appropriate, retest at later date. Positive indicates antibodies detected to HSV-1. Effective May 25, 2024 the reference interval will be changing to: Non Reactive. Performed By: #### M 100.3400 #### [facility] [address] [place], [place], [id number] [phone] HSV 2 IgG < 0.91 Normal 0.00-0.90 [facility] Comment on above: Order Comment: N Result [...] Reactive. Performed By: #### M 100.3400 #### [facility] [address] [place], [address] PROLACTIN 4465on 05-03-2024 PROLACTIN 8.0 ng/mL Normal 4.8-33.4 [facility] Comment on above: Order Comment: N Performed By: #### M 100.3400 #### [facility] [address] [place], [address] Testosterone Freeon 05-03-20 24 TESTOSTER FREE 2.6 pg/mL Normal 0.0-4.2 [facility] Comment on above: Order Comment: N Performed By: #### M 100.2200 #### [facility] [address] [place], [address] Thyroid Peroxidase ABon 04-19 THYR PEROX AB 16 IU/mL Normal 0-34 [facility] Comment on above: Order Comment: N Result Comment: Perf ormed at: [facility] [id number] Safety Compliance Specialist: Gagan Nur PhD, Phone: [phone] Performed at: [facility] [id number] Safety Compliance Specialist: Luan Hoyt MD, Phone: [phone] Performed By: #### M 100.3400 #### [facility] [address] [place], [place], [address] HIV - WCHon 04-27-2024 HIV Non-Reactive Normal Nonreactive [facility] Comment on above: Order Comment: Reaso n for Exam: std exposure Performed By: #### M 100.3400 #### [facility] [address] [place], [place], [address] Hepatitis C Antibodyon 04-27 Hepatitis C AB Non-Reactive Normal Nonreactive [facility] Comment on above: Order Comment: Reaso n for Exam: std exposure Result Comment: Non Reactive: < 0.8 Equivocal: >/= 0.8 to < 1.0 Reactive: >/= 1.0 The [facility] requires that a reactive/equivocal HCV antibody result be sent out for confirmation. HCV Quant by PCR testing. Performed By: #### M 100.3400 #### [facility] [address] [place], [address] L509.8000on 04-27-2024 Syphilis Abs Non-Reactive Normal [facility] Comment on above: Order Comment: Reaso n for Exam: std exposure Performed By: #### M 100.3400 #### [facility] [address] [place], [address] M8200.2203on 04-27-2024 M8200.2203 Pending Chlamydia Trachomatis PCR NEGATIVE for Chlamydia trachomatis N. gonorrhoeae PCR Negative for N. gonorrhoeae Normal [facility] Comment on above: Performed By: #### M 8200.2203 #### [facility] [address] [place], [place], [address] Global President Office Visit Reporton 04-27-2024 Global President Office Visit Report [facility] [address], [address] [place] [address] OFFICE VISIT Date of Service: 04/27/24 MR#: [id number] Acct: [id number] Name: ERIKA PINEDA Rep #: [id number] : 2005 Provider: HERI moore Age/Sex: 18/F Location: [facility] [facility] Status: Signed Intake Vital Signs 10/04/23 17:37 04/27/24 14:03 04/27/24 14:11 Height 5 ft 1 in 5 ft 1 in 5 ft 1 in Weight: 170 lb 6.4 oz 155 lb BMI 32.1 29.2 BP 109/70 104/70 Respiration 16 Pulse 64 Temp 97.6 F L Pulse Oximetry (%) 98 Intake Visit Reasons: irregular menses Chief Complaint: Irregular menses Mule Operator Required: No Is patient in pain?: No [...] Patient : No : No [facility] Social History (Updated 04/27/24 @ 14:10 by Gala Zhang) current occupational status: employed current occupation: [employer] sexually active: Yes Smoking Status: Never smoker [...] Aug 2024 04/27/24 1426 Date Jolene Mabrys GENERAL INTERNAL MEDICINE DOCTOR GENERAL INTERNAL MEDICINE DOCTOR-C Cosigner Signature: Date (if applicable) CC: Normal [facility] T4 Free Directon 04-27-2024 T4 FREE DIRECT 1.03 ng/dL Normal 0.76-1.46 [facility] Comment on above: Performed By: #### M 100.3400 #### [facility] [address] [place], [place], [address] Thyroid Stim Hormone (TSH)on 04-27-2024 TSH 1.170 uIU/mL Normal 0.358-3.740 [facility] Comment on above: Performed By: #### M 100.3400 #### [facility] [address] [place], [place], [address] ACUTE TOXICOLOGY PANEL, BLOO Don 09-21-2023 Acetaminophen [Mass/Vol] ug/mL Normal 10.0-30.0 [facility] Comment on above: Performed By: #### D RUBL #### SOWMYA LAWSON ([id number]) [facility] ([facility]) [facility] [place] [address] Ethanol [Mass/Vol] mg/dL Normal <=10 [facility] Comment on above: Performed By: #### D RUBL #### SOWMYA LAWSON ([id number]) [facility] ([facility]) [address] [place] [address] Salicylates [Mass/Vol] mg/dL Normal 4-20 [facility] Comment on above: Performed By: #### D RUBL #### SOWMYA LAWSON ([id number]) [facility] ([facility]) [facility] [place] [address] Acute Toxicology Panel, Bloo don 09-21-2023 Acetaminophen [Mass/Vol] ug/mL 10. 0 - 30.0 ug/mL [facility] Ethanol [Mass/Vol] mg/dL NINF - 10 mg/dL [facility] Salicylates [Mass/Vol] mg/dL 4 - 20 mg/dL [facility] CBC W Auto Differential pane l (Bld)on 09-21-2023 Basophils (Bld) [#/Vol] 0.05 x10*3/uL Normal 0.00-0.10 [facility] Comment on above: Performed By: #### 5 7021-8 #### SOWMYA LAWSON ([id number]) [facility] ([facility]) [address] [place] [address] 81216 Basophils/100 WBC (Bld) 0.5 % Normal 0.0-2.0 [facility] Comment on above: Performed By: #### 7021-8 #### SOWMYA LAWSON ([id number]) [facility] ([facility]) [address] [place] [address] 02065 Eosinophils (Bld) [#/Vol] 0.04 x10*3/uL Normal 0.00-0. 70 [facility] Comment on above: Performed By: #### 7021-8 #### SOWMYA LAWSON ([id number]) [facility] ([facility]) [address] [place] [address] 60237 Eosinophils/100 WBC (Bld) 0.4 % Normal 0.0-6.0 [facility] Comment on above: Performed By: #### 5 7021-8 #### SOWMYA LAWSON ([id number]) [facility] ([facility]) [address] [place] [address] 43093 Erythrocyte distribution width (RBC) [Ratio] 12.4 % Normal 11.5-14.5 [facility] Comment on above: Performed By: #### 7021-8 #### SOWMYA LAWSON ([id number]) [facility] ([facility]) [address] [place] [address] 95357 Hematocrit (Bld) [Volume fraction] 44.6 % Normal 36.0-46.0 [facility] Comment on above: Performed By: #### 7021-8 #### SOWMYA LAWSON ([id number]) [facility] ([facility]) [address] [place] [address] 45182 Hemoglobin (Bld) [Mass/Vol] 14.8 g/dL Normal 12.0-16.0 [facility] Comment on above: Performed By: #### 5 7021-8 #### SOWMYA LAWSON ([id number]) [facility] ([facility]) [address] [place] [address] 36318 Immature granulocytes (Bld) [#/Vol] 0.02 x10*3/uL Normal 0.00-0.70 [facility] Comment on above: Performed By: #### 5 7021-8 #### SOWMYA LAWSON ([id number]) [facility] ([facility]) [address] [place] [address] 32760 Immature granulocytes/100 WBC (Bld) 0.2 % Normal 0.0-0.9 [facility] Comment on above: Result Comment: Carla ture Granulocyte Count (IG) includes promyelocytes, myelocytes and metamyelocytes but does not include bands. Percent differential counts (%) should be interpreted in the context of the absolute cell counts (cells/UL). Performed By: #### 5 7021-8 #### SOWMYA LAWSON ([id number]) [facility] ([facility]) [address] [place] [address] 70074 Lymphocytes (Bld) [#/Vol] 3.33 x10*3/uL Normal 1.20-4. 80 [facility] Comment on above: Performed By: #### 5 7021-8 #### SOWMYA LAWSON ([id number]) [facility] ([facility]) [address] [place] [address] 17184 Lymphocytes/100 WBC (Bld) 30.6 % Normal 13.0-44.0 [facility] Comment on above: Performed By: #### 5 7021-8 #### SOWMYA LAWSON ([id number]) [facility] ([facility]) [address] [place] [address] 65997 MCH (RBC) [Entitic mass] 29.3 pg Normal 26.0-34.0 [facility] Comment on above: Performed By: #### 5 7021-8 #### SOWMYA LAWSON ([id number]) [facility] ([facility]) [address] [place] [address] 91893 MCHC (RBC) [Mass/Vol] 33.2 g/dL Normal 32.0-36.0 [facility] Comment on above: Performed By: #### 5 7021-8 #### SOWMYA LAWSON ([id number]) [facility] ([facility]) [address] [place] [address] 54240 MCV (RBC) [Entitic vol] 88 fL Normal 80-[address] [facility] Comment on above: Performed By: #### 5 7021-8 #### SOWMYA LAWSON ([id number]) [facility] ([facility]) [address] [place] [address] 29307 Monocytes (Bld) [#/Vol] 0.57 x10*3/uL Normal 0.10-1.00 [facility] Comment on above: Performed By: #### 5 7021-8 #### SOWMYA LAWSON ([id number]) [facility] ([facility]) [address] [place] [address] 07617 Monocytes/100 WBC (Bld) 5.2 % Normal 2.0-10.[address] [facility] Comment on above: Performed By: #### 5 7021-8 #### SOWMYA LAWSON ([id number]) [facility] ([facility]) [address] [place] [address] 87847 Neutrophils (Bld) [#/Vol] 6.89 x10*3/uL Normal 1.20-7. 70 [facility] Comment on above: Result Comment: Perc ent differential counts (%) should be interpreted in the context of the absolute cell counts (cells/uL). Performed By: #### 5 7021-8 #### SOWMYA LAWSON ([id number]) [facility] ([facility]) [address] [place] [address] 44246 Neutrophils/100 WBC (Bld) 63.1 % Normal 40.0-80.0 [facility] Comment on above: Performed By: #### 5 7021-8 #### SOWMYA LAWSON ([id number]) [facility] ([facility]) [address] [place] [address] 54245 Nucleated RBC/100 WBC (Bld) [Ratio] 0.0 /100 WBCs Normal 0.0-0.0 [facility] Comment on above: Performed By: #### 5 7021-8 #### SOWMYA LAWSON ([id number]) [facility] ([facility]) [address] [place] [address] 81902 Platelets (Bld) [#/Vol] 405 x10*3/uL Normal 150-450 [facility] Comment on above: Performed By: #### 5 7021-8 #### SOWMYA LAWSON ([id number]) [facility] ([facility]) [address] [place] [address] 41094 RBC (Bld) [#/Vol] 5.05 x10*6/uL Normal 4.00-5.20 [facility] Comment on above: Performed By: #### 5 7021-8 #### SOWMYA LAWSON ([id number]) [facility] ([facility]) [address] [place] [address] 82010 WBC (Bld) [#/Vol] 10.9 x10*3/uL Normal 4.4-11.3 [facility] Comment on above: Performed By: #### 5 7021-8 #### SOWMYA LAWSON ([id number]) [facility] ([facility]) [address] [place] [address] 48582 Basophils (Bld) [#/Vol] 0.05 10*3/uL [facility] Basophils/100 WBC (Bld) 0.5 % 0.0 - 2.0 % [facility] Eosinophils (Bld) [#/Vol] 0.04 10*3/uL [facility] Eosinophils/100 WBC (Bld) 0.4 % 0.0 - 6.0 % [facility] Erythrocyte distribution width (RBC) [Ratio] 12.4 % 11.5 - 14.5 % [facility] Hematocrit (Bld) [Volume fraction] 44.6 % 36.0 - 46.0 % [facility] Hemoglobin (Bld) [Mass/Vol] 14.8 g/dL 12.0 - 16.0 g/dL [facility] Immature granulocytes (Bld) [#/Vol] 0.02 10*3/uL [facility] Immature granulocytes/100 WBC (Bld) 0.2 % 0.0 - 0.9 % [facility] Comment on above: Immature Granulocyte Count (IG) includes promyelocytes, myelocytes and metamyelocytes but does not include bands. Percent differential counts (%) should be interpreted in the context of the absolute cell counts (cells/UL). Lymphocytes (Bld) [#/Vol] 3.33 10*3/uL [facility] Lymphocytes/100 WBC (Bld) 30.6 % 13.0 - 44. 0 % [facility] MCH (RBC) [Entitic mass] 29.3 pg 26.0 - 34.0 pg [facility] MCHC (RBC) [Mass/Vol] 33.2 g/dL 32.0 - 36.0 g/dL [facility] MCV (RBC) [Entitic vol] 88 fL 80 - 100 fL [facility] Monocytes (Bld) [#/Vol] 0.57 10*3/uL [facility] Monocytes/100 WBC (Bld) 5.2 % 2.0 - 10.0 % [facility] Neutrophils (Bld) [#/Vol] 6.89 10*3/uL [facility] Comment on above: Percent differential counts (%) should be interpreted in the context of the absolute cell counts (cells/uL). Neutrophils/100 WBC (Bld) 63.1 % 40.0 - 80. 0 % [facility] Nucleated RBC/100 WBC (Bld) [Ratio] 0.0 % [facility] Platelets (Bld) [#/Vol] 405 10*3/uL [facility] RBC (Bld) [#/Vol] 5.05 10*6/uL [facility] WBC (Bld) [#/Vol] 10.9 10*3/uL [facility] 2000 panelon 09-21-2023 Albumin BCP dye [Mass/Vol] 5.0 g/dL Normal 3.4-5.0 [facility] Comment on above: Performed By: #### 2 4323-8 #### SOWMYA LAWSON ([id number]) [facility] ([facility]) [address] [place] [address] ALP [Catalytic activity/Vol] 75 U/L Normal 33-110 [facility] Comment on above: Performed By: #### 2 4323-8 #### SOWMYA LAWSON ([id number]) [facility] ([facility]) [address] [place] [address] 19604 ALT With P-5'-P [Catalytic activity/Vol] 17 U/L Normal 7-45 [facility] Comment on above: Result Comment: Beulah ents treated with Sulfasalazine may generate falsely decreased results for ALT. Performed By: #### 2 4323-8 #### SOWMYA LAWSON ([id number]) [facility] ([facility]) [address] [place] [address] Anion gap [Moles/Vol] 10 mmol/L Normal 10-20 [facility] Comment on above: Performed By: #### 2 432-8 #### SOWMYA LAWSON ([id number]) [facility] ([facility]) [address] [place] [address] AST With P-5'-P [Catalytic activity/Vol] 17 U/L Normal 9-39 [facility] Comment on above: Performed By: #### 2 4323-8 #### SOWMYA LAWSON ([id number]) [facility] ([facility]) [address] [place] [address] Bilirubin [Mass/Vol] 0.3 mg/dL Normal 0.0-1.2 [facility] Comment on above: Performed By: #### 2 4323-8 #### SOWMYA LAWSON ([id number]) [facility] ([facility]) [address] [place] [address] Calcium [Mass/Vol] 10.1 mg/dL Normal 8.6-10.3 [facility] Comment on above: Performed By: #### 2 4323-8 #### SOWMYA LAWSON ([id number]) [facility] ([facility]) [facility] [place] [address] Chloride [Moles/Vol] 103 mmol/L Normal 98-107 [facility] Comment on above: Performed By: #### 2 4323-8 #### SOWMYA LAWSON ([id number]) [facility] ([facility]) [facility] [place] [address] CO2 [Moles/Vol] 27 mmol/L Normal 21-32 [facility] Comment on above: Performed By: #### 2 4323-8 #### SOWMYA LAWSON ([id number]) [facility] ([facility]) [address] [place] [address] 48339 Creatinine [Mass/Vol] 0.83 mg/dL Normal 0.50-1.05 [facility] Comment on above: Performed By: #### 2 4323-8 #### SOWMYA LAWSON ([id number]) [facility] ([facility]) [address] [place] [address] 02742 GFR/1.73 sq M.predicted MDRD (S/P/Bld) [Vol rate/Area] mL/min/{1.73_m2} Normal >60 [facility] Comment on above: Result Comment: Calc ulations of estimated GFR are performed using the 2020 CKD-EPI Study Refit equation without the race variable for the IDMS-Traceable creatinine methods. https://jasn.asnjournals.org/content//ASN.20 39186203 Performed By: #### 2 4323-8 #### SOWMYA LAWSON ([id number]) [facility] ([facility]) [address] [place] [address] 91932 Glucose [Mass/Vol] 85 mg/dL Normal 74-99 [facility] Comment on above: Performed By: #### 2 4323-8 #### SOWMYA LAWSON ([id number]) [facility] ([facility]) [facility] [place] [address] Potassium [Moles/Vol] 3.5 mmol/L Normal 3.5-5.3 [facility] Comment on above: Performed By: #### 2 4323-8 #### SOWMYA LAWSON ([id number]) [facility] ([facility]) [address] [place] [address] 94145 Protein [Mass/Vol] 7.5 g/dL Normal 6.4-8.2 [facility] Comment on above: Performed By: #### 2 4323-8 #### SOWMYA LAWSON ([id number]) [facility] ([facility]) [address] [place] [address] 77495 Sodium [Moles/Vol] 136 mmol/L Normal 136-145 [facility] Comment on above: Performed By: #### 2 4323-8 #### SOWMYA LAWSON ([id number]) [facility] ([facility]) [address] [place] [address] 94048 Urea nitrogen [Mass/Vol] 15 mg/dL Normal 6-23 [facility] Comment on above: Performed By: #### 2 4323-8 #### SOWMYA LAWSON ([id number]) [facility] ([facility]) [address] [place] [address] 08062 Albumin BCP dye [Mass/Vol] 5.0 g/dL 3.4 - 5.0 g/dL [facility] ALP [Catalytic activity/Vol] 75 U/L 33 - 110 U/L [facility] ALT With P-5'-P [Catalytic activity/Vol] 17 U/L 7 - 45 U/L [facility] Comment on above: Patients treated wit h Sulfasalazine may generate falsely decreased results for ALT. Anion gap [Moles/Vol] 10 mmol/L 10 - 20 mmol/L [facility] AST With P-5'-P [Catalytic activity/Vol] 17 U/L 9 - 39 U/L [facility] Bilirubin [Mass/Vol] 0.3 mg/dL 0.0 - 1 .2 mg/dL [facility] Calcium [Mass/Vol] 10.1 mg/dL 8.6 - 10. 3 mg/dL [facility] Chloride [Moles/Vol] 103 mmol/L 98 - 10 7 mmol/L [facility] CO2 [Moles/Vol] 27 mmol/L 21 - 32 mmol/L [facility] Creatinine [Mass/Vol] 0.83 mg/dL 0.50 - 1.05 mg/dL [facility] eGFR - PINF [facility] Comment on above: Calculations of nenita mated GFR are performed using the 2020 CKD-EPI Study Refit equation without the race variable for the IDMS-Traceable creatinine methods. https://jasn.asnjournals.org/content//ASN.20 42878805 Glucose [Mass/Vol] 85 mg/dL 74 - 99 mg/dL [facility] Potassium [Moles/Vol] 3.5 mmol/L 3.5 - 5.3 mmol/L [facility] Protein [Mass/Vol] 7.5 g/dL 6.4 - 8.2 g/dL [facility] Sodium [Moles/Vol] 136 mmol/L 136 - 145 mmol/L [facility] Urea nitrogen [Mass/Vol] 15 mg/dL 6 - 23 mg/d L [facility] DRUG SCREEN,URINEon 09-21-19 24 Amphetamines Screen Ql (U) Negative Normal Presumptive Negative [facility] Comment on above: Order Comment: Drug screen results are presumptive and should not be used to assess compliance with prescribed medication. Contact the performing [facility] laboratory to add-on definitive confirmatory testing if [...] By: #### D RUG3 #### SOWMYA LAWSON ([id number]) [facility] ([facility]) [address] [place] [address] Barbiturates Screen Ql (U) Negative Normal Presumptive Negative [facility] Comment on above: Order Comment: Drug screen results are presumptive and should not be used to assess compliance with prescribed medication. Contact the performing [facility] laboratory to add-on definitive confirmatory testing if [...] By: #### D RUG3 #### SOWMYA LAWSON ([id number]) [facility] ([facility]) [address] [place] [address] Benzodiazepines Ql (U) Negative Normal Presu mptive Negative [facility] Comment on above: Order Comment: Drug screen results are presumptive and should not be used to assess compliance with prescribed medication. Contact the performing [facility] laboratory to add-on definitive confirmatory testing if [...] By: #### D RUG3 #### SOWMYA LAWSON ([id number]) [facility] ([facility]) [address] [place] [address] Benzoylecgonine Screen Ql (U) Negative Normal Presumptive Negative [facility] Comment on above: Order Comment: Drug screen results are presumptive and should not be used to assess compliance with prescribed medication. Contact the performing [facility] laboratory to add-on definitive confirmatory testing if [...] By: #### D RUG3 #### SOWMYA LAWSON ([id number]) [facility] ([facility]) [address] [place] [address] Cannabinoids Screen Ql (U) Negative Normal Presumptive Negative [facility] Comment on above: Order Comment: Drug screen results are presumptive and should not be used to assess compliance with prescribed medication. Contact the performing [facility] laboratory to add-on definitive confirmatory testing if [...] By: #### D RUG3 #### SOWMYA LAWSON ([id number]) [facility] ([facility]) [facility] [place] [address] fentaNYL+Norfentanyl Screen Ql (U) Negative Normal Presumptive Negative [facility] Comment on above: Order Comment: Drug screen results are presumptive and should not be used to assess compliance with prescribed medication. Contact the performing [facility] laboratory to add-on definitive confirmatory testing if [...] By: #### D RUG3 #### SOWMYA LAWSON ([id number]) [facility] ([facility]) [address] [place] [address] Opiates Screen Ql (U) Negative Normal Presum ptive Negative [facility] Comment on above: Order Comment: Drug screen results are presumptive and should not be used to assess compliance with prescribed medication. Contact the performing [facility] laboratory to add-on definitive confirmatory testing if [...] By: #### D RUG3 #### DENG RENNY ([id number]) [facility] ([facility]) [facility] [place] [address] oxyCODONE+oxyMORphone Screen Ql (U) Negative Normal Presumptive Negative [facility] Comment on above: Order Comment: Drug screen results are presumptive and should not be used to assess compliance with prescribed medication. Contact the performing [facility] laboratory to add-on definitive confirmatory testing if [...] By: #### D RUG3 #### SOWMYA LAWSON ([id number]) [facility] ([facility]) [address] [place] [address] Phencyclidine Ql (U) Negative Normal Presump tive Negative [facility] Comment on above: Order Comment: Drug screen results are presumptive and should not be used to assess compliance with prescribed medication. Contact the performing [facility] laboratory to add-on definitive confirmatory testing if [...] By: #### D RUG3 #### SOWMYA LAWSON ([id number]) [facility] ([facility] [address] [place] [address] Drug Screen, Urineon 024 Amphetamines Screen Ql (U) Negative Presumptive Negative [facility] Comment on above: CUTOFF LEVEL: 500 NG /ML Cross-reactivity has been reported with high concentrations of the following drugs: buproprion, chloroquine, chlorpromazine, ephedrine, mephentermine, fenfluramine, phentermine, phenylpropanolamine, pseudoephedrine, and propranolol. Barbiturates Screen Ql (U) Negative Presumptive Negative [facility] Comment on above: CUTOFF LEVEL: 200 NG /ML Benzodiazepines Ql (U) Negative Presu mptive Negative [facility] Comment on above: CUTOFF LEVEL: 200 NG /ML Benzoylecgonine Screen Ql (U) Negative Presumptive Negative [facility] Comment on above: CUTOFF LEVEL: 150 NG /ML Cannabinoids Screen Ql (U) Negative Presumptive Negative [facility] Comment on above: CUTOFF LEVEL: 50 NG/ ML fentaNYL+Norfentanyl Screen Ql (U) Negative Presumptive Negative [facility] Comment on above: CUTOFF LEVEL: 5 NG/M L Interpretation and review of laboratory results Normal [facility] Opiates Screen Ql (U) Negative Presum ptive Negative [facility] Comment on above: CUTOFF LEVEL: 300 NG /ML The opiate screen does not detect fentanyl, meperidine, or tramadol. Oxycodone is not consistently detected (refer to Oxycodone Screen, Urine result). oxyCODONE+oxyMORphone Screen Ql (U) Negative Presumptive Negative [facility] Comment on above: CUTOFF LEVEL: 100 NG /ML This test will accurately detect both oxycodone and oxymorphone. Phencyclidine Ql (U) Negative Presump tive Negative [facility] Comment on above: CUTOFF LEVEL: 25 NG/ ML Cross-reactivity has been reported with dextromethorphan. Drug screen results are presumptive and should not be used to assess compliance with prescribed medication. Contact the performing [facility] laboratory to add-on definitive confirmatory testing if [...] be directed to the laboratory medical directors. [facility] HCG ( test) cinthia mauricio Ql (U)on 09-21-2023 HCG ( test) Ql (U) Negative Normal NEGATIVE [facility] Comment on above: Performed By: #### 8 0384-1 #### SOWMYA LAWSON ([id number]) [facility] ([facility]) [address] [place] [address] HCG ( test) Ql (U) Negative NEGATIVE [facility] Work Phone: Interpretation and review of laboratory results Normal [facility] Work Phone: [facility] Work Phone: No Panel Informationon 09-21 Interpretation and review of laboratory results Normal [facility] Urinalysis complete W Reflex Culture panel (U)on 09-21-2023 Appearance (U) Clear Normal Clear [facility] Comment on above: Performed By: #### 5 8077-9 #### SOWMYA LAWSON ([id number]) [facility] ([facility]) [address] [place] [address] 41884 Bilirubin (U) [Mass/Vol] Negative Normal NEGATIVE [facility] Comment on above: Performed By: #### 5 8077-9 #### SOWMYA LAWSON ([id number]) [facility] ([facility]) [address] [place] [address] 77244 Color (U) Straw Normal Straw, Yellow [facility] Comment on above: Performed By: #### 5 8077-9 #### SOWMYA LAWSON ([id number]) [facility] ([facility]) [address] [place] [address] 91149 Glucose Auto test strip (U) [Mass/Vol] Negative Normal NEGATIVE [facility] Comment on above: Performed By: #### 5 8077-9 #### SOWMYA LAWSON ([id number]) [facility] ([facility]) [address] [place] [address] 97715 Ketones (U) [Mass/Vol] Negative Normal NEGATIVE [facility] Comment on above: Performed By: #### 5 8077-9 #### SOWMYA LAWSON ([id number]) [facility] ([facility]) [address] [place] [address] 08933 Leukocyte esterase Auto test strip Ql (U) Negative Normal NEGATIVE [facility] Comment on above: Performed By: #### 5 8077-9 #### SOWMYA LAWSON ([id number]) [facility] ([facility]) [address] [place] [address] 00630 Nitrite Auto test strip Ql (U) Negative Normal NEGATIVE [facility] Comment on above: Performed By: #### 5 8077-9 #### SOWMYA LAWSON ([id number]) [facility] ([facility]) [address] [place] [address] pH (U) 7.0 [pH] Normal 5.0, 5.5, 6.0, 6.5, 7.0, 7.5, 8.0 [facility] Comment on above: Performed By: #### 5 8077-9 #### SOWMYA LAWSON ([id number]) [facility] ([facility]) [address] [place] [address] 60701 Protein (U) [Mass/Vol] Negative Normal NEGATIVE [facility] Comment on above: Performed By: #### 5 8077-9 #### SOWMYA LAWSON ([id number]) [facility] ([facility]) [address] [place] [address] 96944 RBC (U) [#/Vol] Negative Normal NEGATIVE [facility] Comment on above: Performed By: #### 5 8077-9 #### SOWMYA LAWSON ([id number]) [facility] ([facility]) [address] [place] [address] 64964 Specific gravity (U) [Rel density] 1.014 Normal 1.005-1.035 [facility] Comment on above: Performed By: #### 5 8077-9 #### SOWMYA LAWSON ([id number]) [facility] LAB ([facility]) [facility] [place] [address] Urobilinogen (U) [Mass/Vol] mg/dL Normal <2.0 [facility] Comment on above: Performed By: #### 5 [id number] #### SOWMYA LAWSON ([id number]) [facility] ([facility]) [facility] [place] [address] Urinalysis complete W Reflex Culture panel (U)Ordered By: Stephanie Temple on 09-21-2023 Appearance (U) [facility] Bilirubin (U) [Mass/Vol] Negative NEGATIVE [facility] Color (U) Straw Straw, Yellow [facility] Glucose Auto test strip (U) [Mass/Vol] Negative NEGATIVE mg/dL [facility] Interpretation and review of laboratory results Normal [facility] Ketones (U) [Mass/Vol] Negative NEGATIVE mg/d L [facility] Leukocyte esterase Auto test strip Ql (U) Negative NEGATIVE [facility] Nitrite Auto test strip Ql (U) Negative NEGATIVE [facility] pH (U) 7.0 [pH] 5.0, 5.5, 6.0, 6.5, 7.0, 7.5, 8.0 [facility] Protein (U) [Mass/Vol] Negative NEGATIVE mg/d L [facility] RBC (U) [#/Vol] Negative NEGATIVE [facility] Specific gravity (U) [Rel density] 1.014 1.005 - 1.035 [facility] Urobilinogen (U) [Mass/Vol] mg/dL NINF - 2.0 mg/dL [facility] DRUG SCREEN,URINEon 03-04-20 AMPHETAMINE SCREEN,U Canceled Normal [facility] Comment on above: Order Comment: TEST DRUG SCREEN,URINE WAS CANCELLED, 03/04/2023 17:30 discharged. Result Comment: CUTO FF LEVEL: 500 NG/ML Cross-reactivity has been reported with high concentrations of the following drugs: buproprion, chloroquine, chlorpromazine, ephedrine, mephentermine, fenfluramine, phentermine, phenylpropanolamine, pseudoephedrine, and propranolol. Performed By: #### C BCDF #### [place] [address] BARBITURATES SCREEN,U Canceled [facility] Comment on above: Order Comment: TEST DRUG SCREEN,URINE WAS CANCELLED, 03/04/2023 17:30 discharged. Result Comment: CUTO FF LEVEL: 200 NG/ML Performed By: #### C BCDF #### [place] [address] BENZODIAZEPINES SCREEN,U Canceled [facility] Comment on above: Order Comment: TEST DRUG SCREEN,URINE WAS CANCELLED, 03/04/2023 17:30 discharged. Result Comment: CUTO FF LEVEL: 200 NG/ML Performed By: #### C BCDF #### [place] [address] CANNABINOIDS SCREEN,U Canceled [facility] Comment on above: Order Comment: TEST DRUG SCREEN,URINE WAS CANCELLED, 03/04/2023 17:30 discharged. Result Comment: CUTO FF LEVEL: 50 NG/ML Performed By: #### C BCDF #### [place] [address] COCAINE METABOLITE SCREEN,U Canceled [facility] Comment on above: Order Comment: TEST DRUG SCREEN,URINE WAS CANCELLED, 03/04/2023 17:30 discharged. Result Comment: CUTO FF LEVEL: 150 NG/ML Performed By: #### C BCDF #### [place] [address] DRUG SCREEN COMMENT Canceled [facility] Comment on above: Order Comment: TEST DRUG SCREEN,URINE WAS CANCELLED, 03/04/2023 17:30 discharged. Result Comment: Drug screen results are presumptive and should not be used to assess compliance with prescribed medication. Contact the performing [facility] laboratory to add-on definitive confirmatory testing if [...] directors. Performed By: #### C BCDF #### [place] [address] FENTANYL SCREEN,URINE Canceled [facility] Comment on above: Order Comment: TEST DRUG SCREEN,URINE WAS CANCELLED, 03/04/2023 17:30 discharged. Result Comment: CUTO FF LEVEL: 5 NG/ML Performed By: #### C BCDF #### [place] [address] METHADONE SCREEN,U Canceled [facility] Comment on above: Order Comment: TEST DRUG SCREEN,URINE WAS CANCELLED, 03/04/2023 17:30 discharged. Result Comment: CUTO FF LEVEL: 150 NG/ML The metabolite K-oijyl-kkhbnsjzblcooy (LAAM) is not detected by this method in concentrations that would be found in the urine of patients on LAAM therapy. Performed By: #### C BCDF #### [place] [address] OPIATES SCREEN,U Canceled [facility] Comment on above: Order Comment: TEST DRUG SCREEN,URINE WAS CANCELLED, 03/04/2023 17:30 discharged. Result Comment: CUTO FF LEVEL: 300 NG/ML The opiate screen does not detect fentanyl, meperidine, or tramadol. Oxycodone is not consistently detected (refer to Oxycodone Screen, Urine result). Performed By: #### C BCDF #### [place] [address] OXYCODONE SCREEN,U Canceled [facility] Comment on above: Order Comment: TEST DRUG SCREEN,URINE WAS CANCELLED, 03/04/2023 17:30 discharged. Result Comment: CUTO FF LEVEL: 100 NG/ML This test will accurately detect both oxycodone and oxymorphone. Performed By: #### C BCDF #### [address] [address] PCP SCREEN,U Canceled [facility] Comment on above: Order Comment: TEST DRUG SCREEN,URINE WAS CANCELLED, 03/04/2023 17:30 discharged. Result Comment: CUTO FF LEVEL: 25 NG/ML Cross-reactivity has been reported with dextromethorphan. Performed By: #### C BCDF #### [address] [address] SALICYLATEon 03-04-2023 SALICYLATE 24 mg/dL High 4 - 20 [facility] Comment on above: Performed By: #### S ALIC #### [place] [id number] URINALYSIS WITH CULTURE IF I NDICATEDon 03-04-2023 Appearance (U) Canceled [facility] Comment on above: Order Comment: TEST URINALYSIS WITH CULTURE IF INDICATED WAS CANCELLED, 03/04/2023 17:29 discharged. Performed By: #### U ARFX #### [place] [id number] ASCORBIC ACID Canceled [facility] Comment on above: Order Comment: TEST URINALYSIS WITH CULTURE IF INDICATED WAS CANCELLED, 03/04/2023 17:29 discharged. Result Comment: Conc entrations > = 20 mg/dL of ascorbic acid can be expected to cause strong interference in the reactions testing for glucose, nitrite and blood. It is recommended to discontinue Vitamin C administration and retest in 10 hours. Performed By: #### U ARFX #### [address] [address] Bilirubin Ql (U) Canceled [facility] Comment on above: Order Comment: TEST URINALYSIS WITH CULTURE IF INDICATED WAS CANCELLED, 03/04/2023 17:29 discharged. Performed By: #### U ARFX #### [address] [address] Color (U) Canceled [facility] Comment on above: Order Comment: TEST URINALYSIS WITH CULTURE IF INDICATED WAS CANCELLED, 03/04/2023 17:29 discharged. Performed By: #### U ARFX #### [address] [address] Glucose Ql (U) Canceled [facility] Comment on above: Order Comment: TEST URINALYSIS WITH CULTURE IF INDICATED WAS CANCELLED, 03/04/2023 17:29 discharged. Performed By: #### U ARFX #### [address] [address] Hemoglobin Ql (U) Canceled [facility] Comment on above: Order Comment: TEST URINALYSIS WITH CULTURE IF INDICATED WAS CANCELLED, 03/04/2023 17:29 discharged. Performed By: #### U ARFX #### [address] [address] Ketones Ql (U) Canceled [facility] Comment on above: Order Comment: TEST URINALYSIS WITH CULTURE IF INDICATED WAS CANCELLED, 03/04/2023 17:29 discharged. Performed By: #### U ARFX #### [address] [address] Leukocyte esterase Test strip Ql (U) Canceled [facility] Comment on above: Order Comment: TEST URINALYSIS WITH CULTURE IF INDICATED WAS CANCELLED, 03/04/2023 17:29 discharged. Performed By: #### U ARFX #### [address] [address] Nitrite Ql (U) Canceled [facility] Comment on above: Order Comment: TEST URINALYSIS WITH CULTURE IF INDICATED WAS CANCELLED, 03/04/2023 17:29 discharged. Performed By: #### U ARFX #### [address] [address] pH Canceled [facility] Comment on above: Order Comment: TEST URINALYSIS WITH CULTURE IF INDICATED WAS CANCELLED, 03/04/2023 17:29 discharged. Performed By: #### U ARFX #### [address] [address] Protein Ql (U) Canceled [facility] Comment on above: Order Comment: TEST URINALYSIS WITH CULTURE IF INDICATED WAS CANCELLED, 03/04/2023 17:29 discharged. Performed By: #### U ARFX #### [place] [id number] Specific gravity (U) [Rel density] Canceled Normal [facility] Comment on above: Order Comment: TEST URINALYSIS WITH CULTURE IF INDICATED WAS CANCELLED, 03/04/2023 17:29 discharged. Performed By: #### U ARFX #### [place] [id number] UROBILINOGEN Canceled Normal [facility] Comment on above: Order Comment: TEST URINALYSIS WITH CULTURE IF INDICATED WAS CANCELLED, 03/04/2023 17:29 discharged. Performed By: #### U ARFX #### [place] [address] ACETAMINOPHENon 03-03-2023 Acetaminophen [Mass/Vol] 67.8 ug/mL High 10.0 - 30.0 [facility] Comment on above: Performed By: #### C BCDF #### [place] [address] Acetaminophen [Mass/Vol] 98.7 ug/mL High 10.0 - 30.0 [facility] Comment on above: Performed By: #### C K #### [place] [id number] ALCOHOLon 03-03-2023 Ethanol [Mass/Vol] mg/dL Normal [facility] Comment on above: Result Comment: FOR MEDICAL USE ONLY. . REF VALUES <10 Performed By: #### C K #### [place] [id number] ARTERIAL BLOOD GASon 023 BASE EXCESS-BLOOD -1.8 mmol/L Normal -2.0 - 3.0 [facility] Comment on above: Performed By: #### B LGA2 #### [place] [id number] BICARB, CALCULATED 18.8 mmol/L Low 22.0 - 26.0 [facility] Comment on above: Performed By: #### B LGA2 #### [place] [address] FIO2 21 % Normal [facility] Comment on above: Performed By: #### B LGA2 #### [place] [address] OXY HGB 97.3 % Normal 94.0 - 98.0 [facility] Comment on above: Performed By: #### B LGA2 #### [place] [address] Oxygen (Bld) [Partial pressure] 126 mm[Hg] High 85 - 95 [facility] Comment on above: Performed By: #### B LGA2 #### [place] [address] PATIENT TEMPERATURE 37.0 degrees C Normal [facility] Comment on above: Result Comment: NOTE : PATIENT RESULTS ARE NOT CORRECTED FOR TEMPERATURE. Performed By: #### B LGA2 #### [place] [address] PCO2 22 mmHg Low 38 - 42 [facility] Comment on above: Performed By: #### B LGA2 #### [place] [address] pH (Bld) 7.54 [pH] High 7.38 - 7.42 [facility] Comment on above: Performed By: #### B LGA2 #### [place] [address] SO2 100 % Normal 94 - 100 [facility] Comment on above: Performed By: #### B LGA2 #### [place] [address] BASIC METABOLIC PANELon 02-16 Anion gap [Moles/Vol] 19 mmol/L Normal 10 - 20 [facility] Comment on above: Performed By: #### B MP #### [place] [address] Calcium [Mass/Vol] 9.6 mg/dL Normal 8.6 - 10.3 [facility] Comment on above: Performed By: #### B MP #### [address] [address] Chloride [Moles/Vol] 105 mmol/L Normal 98 - 107 [facility] Comment on above: Performed By: #### B MP #### [address] [address] Creatinine [Mass/Vol] 1.01 mg/dL Normal 0.50 - 1.05 [facility] Comment on above: Performed By: #### B MP #### [address] [address] GFR/1.73 sq M.predicted among non-blacks MDRD (S/P/Bld) [Vol rate/Area] 82 mL/min/{1.73_m2} Normal >90 [facility] Comment on above: Result Comment: CALC ULATIONS OF ESTIMATED GFR ARE PERFORMED USING THE 2020 CKD-EPI STUDY REFIT EQUATION WITHOUT THE RACE VARIABLE FOR THE IDMS-TRACEABLE CREATININE METHODS. https://jasn.asnjournals.org/content///ASN.20 36802619 Performed By: #### B MP #### [address] [address] Glucose [Mass/Vol] 96 mg/dL Normal 74 - 99 [facility] Comment on above: Performed By: #### B MP #### [address] [address] HCO3 (Bld) [Moles/Vol] 18 mmol/L Low 21 - 32 [facility] Comment on above: Performed By: #### B MP #### [address] [address] Potassium [Moles/Vol] 3.2 mmol/L Low 3.5 - 5.3 [facility] Comment on above: Performed By: #### B MP #### [address] [address] Sodium [Moles/Vol] 139 mmol/L Normal 136 - 145 [facility] Comment on above: Performed By: #### B MP #### [address] [address] Urea nitrogen [Mass/Vol] 15 mg/dL Normal 6 - 23 [facility] Comment on above: Performed By: #### B MP #### [address] [address] CBC AND DIFFERENTIALon 03-03 % AUTOMATED IMMATURE GRAN 0.3 % Normal 0.0 - 0.9 [facility] Comment on above: Result Comment: Carla ture Granulocyte Count (IG) includes promyelocytes, myelocytes and metamyelocytes but does not include bands. Percent differential counts (%) should be interpreted in the context of the absolute cell counts (cells/L). Performed By: #### C BCDF #### [place] [id number] Basophils (Bld) [#/Vol] 0.04 10*3/uL Normal 0.00 - 0.1 0 [facility] Comment on above: Performed By: #### C BCDF #### [place] [id number] Basophils/100 WBC (Bld) 0.3 % Normal 0.0 - 2.0 [facility] Comment on above: Performed By: #### C BCDF #### [address] [address] Eosinophils (Bld) [#/Vol] 0.05 10*3/uL Normal 0.00 - 0 .70 [facility] Comment on above: Performed By: #### C BCDF #### [address] [address] Eosinophils/100 WBC (Bld) 0.4 % Normal 0.0 - 6.0 [facility] Comment on above: Performed By: #### C BCDF #### [address] [address] Erythrocyte distribution width (RBC) [Ratio] 12.3 % Normal 11.5 - 14.5 [facility] Comment on above: Performed By: #### C BCDF #### [address] [address] Hematocrit (Bld) [Volume fraction] 46.7 % High 36.0 - 46.0 [facility] Comment on above: Performed By: #### C BCDF #### [address] [address] Hemoglobin (Bld) [Mass/Vol] 15.4 g/dL Normal 12.0 - 16.0 [facility] Comment on above: Performed By: #### C BCDF #### [address] [address] Lymphocytes (Bld) [#/Vol] 4.76 10*3/uL Normal 1.20 - 4 .80 [facility] Comment on above: Performed By: #### C BCDF #### [address] [address] Lymphocytes/100 WBC (Bld) 33.7 % Normal 13.0 - 44. 0 [facility] Comment on above: Performed By: #### C BCDF #### [address] [address] MCHC (RBC) [Mass/Vol] 33.0 g/dL Normal 32.0 - 36.0 [facility] Comment on above: Performed By: #### C BCDF #### [address] [address] MCV (RBC) [Entitic vol] 90 fL Normal 80 - 100 [facility] Comment on above: Performed By: #### C BCDF #### [address] [address] Monocytes (Bld) [#/Vol] 1.17 10*3/uL High 0.10 - 1.0 0 [facility] Comment on above: Performed By: #### C BCDF #### [address] [address] Monocytes/100 WBC (Bld) 8.3 % Normal 2.0 - 10.0 [facility] Comment on above: Performed By: #### C BCDF #### [address] [address] Neutrophils (Bld) [#/Vol] 8.08 10*3/uL High 1.20 - 7 .70 [facility] Comment on above: Result Comment: Perc ent differential counts (%) should be interpreted in the context of the absolute cell counts (cells/L). Performed By: #### C BCDF #### [address] [address] Neutrophils/100 WBC (Bld) 57.0 % Normal 40.0 - 80. 0 [facility] Comment on above: Performed By: #### C BCDF #### [address] [address] Platelets (Bld) [#/Vol] 444 10*3/uL Normal 150 - 450 [facility] Comment on above: Performed By: #### C BCDF #### [address] [address] RBC 5.20 x10E12/L Normal 4.00 - 5.20 [facility] Comment on above: Performed By: #### C BCDF #### [address] [address] WBC (Bld) [#/Vol] 14.1 10*3/uL High 4.4 - 11.3 [facility] Comment on above: Performed By: #### C BCDF #### [address] [address] CREATINE KINASEon 03-03-2023 CK [Catalytic activity/Vol] 91 U/L Normal 0 - 215 [facility] Comment on above: Performed By: #### C K #### [address] [address] Clinical Event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 pressure 134 mm[Hg] Dr. Jorge Bearden MD Work Phone: 1(061)046-133023 [place] [address] 2024 12:27-0500 Body mass index (BMI) [Ratio] 30.4 kg/m2 Dr. Jorge Bearden MD Work Phone: 4(461)577-501323 [place] [address] 2024 12:27-0500 Body weight 73.[address] Jorge Bearden MD Work Phone: 2(289)336-807023 [place] [address] 08-13-2024 08:33-0500 Body mass index (BMI) [Ratio] 30.7 kg/m2 Dr. Jorge Bearden MD Work Phone: 9(190)413-137023 [place] [address] 08-13-2024 08:33-0500 Body weight 73.[address] Jorge Bearden MD Work Phone: 0(705)676-009223 [place] [address] 08-13-2024 08:33-0500 Diastolic blood pressure 71 mm[Hg] Dr. Jorge Bearden MD Work Phone: 7(370)821-707923 [place] [address] 08-13-2024 08:33-0500 Systolic blood pressure 122 mm[Hg] Dr. Jorge Bearden MD Work Phone: [facility] 10-04-2023 17:37-0500 Body height 154.94 cm [facility] 10-04-2023 17:37-0500 Body mass index (BMI) [Ratio] 32.1 kg/m2 [facility] 10-04-2023 17:37-0500 Body temperature 97.6 [degF] [facility] 10-04-2023 17:37-0500 Body weight 77.29 kg [facility] 10-04-2023 17:37-0500 Diastolic blood pressure 70 mm[Hg] [facility] 10-04-2023 17:37-0500 Heart rate 64 /min [facility] 10-04-2023 17:37-0500 Respiratory rate 16 /min [facility] 10-04-2023 17:37-0500 SaO2% (BldA) [Mass fraction] 98 % [facility] 10-04-2023 17:37-0500 Systolic blood pressure 109 mm[Hg] [facility] 09-21-2023 20:50-0500 Body temperature 98.1 [degF] Jorge Bearden MD Work Phone: [facility] 09-21-2023 20:50-0500 Diastolic blood pressure 73 mm[Hg] Jorge Bearden MD Work Phone: [facility] 09-21-2023 20:50-0500 Heart rate 86 /min Jorge Bearden MD Work Phone: [facility] 09-21-2023 20:50-0500 Respiratory rate 16 /min Jorge Bearden MD Work Phone: [facility] 09-21-2023 20:50-0500 SaO2% (BldA) [Mass fraction] 97 % Jorge Bearden MD Work Phone: [facility] 09-21-2023 20:50-0500 Systolic blood pressure 112 mm[Hg] Jorge Bearden MD Work Phone: [facility] 09-21-2023 17:13-0500 Body height 154.9 cm Jorge Bearden MD Work Phone: [facility] 09-21-2023 17:13-0500 Body mass index (BMI) [Ratio] 30.23 kg/m2 Jorge Bearden MD Work Phone: [facility] 09-21-2023 17:13-0500 Body weight 72.58 kg Jorge Bearden MD Work Phone: [facility] 03-04-2023 08:53-0400 Body temperature 98.24 [degF] Jorge Bearden Other Phone: [facility] 03-04-2023 08:53-0400 Diastolic blood pressure 56 mm[Hg] Jorge Bearden Other Phone: [facility] 03-04-2023 08:53-0400 Heart rate 57 /min Jorge Bearden Other Phone: [facility] 03-04-2023 08:53-0400 Respiratory rate 16 /min Jorge Bearden Other Phone: [facility] 03-04-2023 08:53-0400 SaO2% (BldA) [Mass fraction] 99 % Jorge Bearden Other Phone: [facility] 03-04-2023 08:53-0400 Systolic blood pressure 96 mm[Hg] Jorge Bearden Other Phone: [facility] 02-04-2023 00:00-0400 Diastolic blood pressure 67 mm[Hg] Jorge Bearden Other Phone: [facility] 02-04-2023 00:00-0400 Heart rate 79 /min Jorge Bearden Other Phone: [facility] 02-04-2023 00:00-0400 Respiratory rate 18 /min Jorge Bearden Other Phone: [facility] 02-04-2023 00:00-0400 SaO2% (BldA) [Mass fraction] 100 % Jorge Bearden Other Phone: [facility] 02-04-2023 00:00-0400 Systolic blood pressure 101 mm[Hg] Jorge Bearden Other Phone: [facility] 02-03-2023 21:46-0400 Body height 154.9 cm Jorge Bearden Other Phone: [facility] 02-03-2023 21:46-0400 Body temperature 97.7 [degF] Jorge Bearden Other Phone: [facility] 02-03-2023 21:46-0400 Body weight 68.2 kg Jorge Bearden Other Phone: [facility] 01-16-2023 14:35-0400 Body height 154.[address] Jorge Bearden Work Phone: [facility] 01-16-2023 14:34-0400 Body mass index (BMI) [Percentile] Per age and sex 94.5 % Dr. Jorge Bearden Work Phone: [facility] 01-16-2023 14:34-0400 Body mass index (BMI) [Ratio] 30.8 kg/m2 Dr. Jorge Bearden Work Phone: [facility] 01-16-2023 14:34-0400 Body weight 74.[address] Jorge Bearden Work Phone: [facility] 01-16-2023 14:34-0400 Diastolic blood pressure 75 mm[Hg] Dr. Jorge Bearden Work Phone: [facility] 01-16-2023 14:34-0400 Systolic blood pressure 113 mm[Hg] Dr. Jorge Bearden Work Phone: [facility] 11-30-2022 07:35-0400 Body temperature 97.5 [degF] Iker Morrow SUPERINTENDENT COMPRESSOR STATIONS.LITHOGRAPH PRINTER Work Phone: [facility] 11-30-2022 07:35-0400 Body weight 73.66 kg Iker Morrow SUPERINTENDENT COMPRESSOR STATIONS.LITHOGRAPH PRINTER Work Phone: [facility] 11-30-2022 07:35-0400 Diastolic blood pressure 66 mm[Hg] Iker Morrow SUPERINTENDENT COMPRESSOR STATIONS.LITHOGRAPH PRINTER Work Phone: [facility] 11-30-2022 07:35-0400 Heart rate 62 /min Iker Morrow SUPERINTENDENT COMPRESSOR STATIONS.LITHOGRAPH PRINTER Work Phone: [facility] 11-30-2022 07:35-0400 Respiratory rate 18 /min Iker Morrow SUPERINTENDENT COMPRESSOR STATIONS.LITHOGRAPH PRINTER Work Phone: [facility] 11-30-2022 07:35-0400 SaO2% (BldA) [Mass fraction] 99 % Iker James SUPERINTENDENT COMPRESSOR STATIONS.LITHOGRAPH PRINTER Work Phone: [facility] 11-30-2022 07:35-0400 Systolic blood pressure 102 mm[Hg] Iker Morrow SUPERINTENDENT COMPRESSOR STATIONS.LITHOGRAPH PRINTER Work Phone: [facility] 07-03-2022 18:23-0500 Body temperature 97.59 [degF] Barbara Ellison SUPERINTENDENT COMPRESSOR STATIONS.LITHOGRAPH PRINTER Work Phone: [facility] 07-03-2022 18:23-0500 Body weight 76.2 kg Barbaradestiny Ellison SUPERINTENDENT COMPRESSOR STATIONS.LITHOGRAPH PRINTER Work Phone: [facility] 07-03-2022 18:23-0500 Diastolic blood pressure 72 mm[Hg] Barbara Scot SUPERINTENDENT COMPRESSOR STATIONS.LITHOGRAPH PRINTER Work Phone: [facility] 07-03-2022 18:23-0500 Heart rate 80 /min Barbara Scot SUPERINTENDENT COMPRESSOR STATIONS.LITHOGRAPH PRINTER Work Phone: [facility] 07-03-2022 18:23-0500 Respiratory rate 16 /min Barbara Scot SUPERINTENDENT COMPRESSOR STATIONS.LITHOGRAPH PRINTER Work Phone: [facility] 07-03-2022 18:23-0500 SaO2% (BldA) [Mass fraction] 100 % Barbara Ellison APRN.LITHOGRAPH PRINTER Work Phone: [facility] 07-03-2022 18:23-0500 Systolic blood pressure 122 mm[Hg] Barbara Ellison APRN.LITHOGRAPH PRINTER Work Phone: [facility] 04-26-2022 13:31-0400 Body height 154.94 cm No Primary Care Physician [facility] Work Phone: 04-26-2022 13:29-0400 Body mass index (BMI) [Percentile] Per age and sex 95.3 % No Primary Care Physician [facility] Work Phone: 04-26-2022 13:29-0400 Body mass index (BMI) [Ratio] 31.1 kg/m2 No Primary Care Physician [facility] Work Phone: 04-26-2022 13:29-0400 Body weight 74.61 kg No Primary Care Physician [facility] Work Phone: 04-26-2022 13:29-0400 Diastolic blood pressure 69 mm[Hg] No Primary Care Physician [facility] Work Phone: 04-26-2022 13:29-0400 Systolic blood pressure 106 mm[Hg] No Primary Care Physician [facility] Work Phone: 03-26-2022 10:12-0400 Body mass index (BMI) [Percentile] Per age and sex 95.1 % No Primary Care Physician [facility] Work Phone: 03-26-2022 10:12-0400 Body mass index (BMI) [Ratio] 30.8 kg/m2 No Primary Care Physician [facility] Work Phone: 03-26-2022 10:12-0400 Body weight 73.93 kg No Primary Care Physician [facility] Work Phone: 03-26-2022 10:12-0400 Diastolic blood pressure 80 mm[Hg] No Primary Care Physician [facility] Work Phone: 03-26-2022 10:12-0400 Systolic blood pressure 122 mm[Hg] No Primary Care Physician [facility] Work Phone: 03-23-2022 08:06-0400 Body height 156 cm Jorge Bearden MD Work Phone: [facility] 03-23-2022 08:06-0400 Body mass index (BMI) [Percentile] Per age and sex 94.28 % Jorge Bearden MD Work Phone: [facility] 03-23-2022 08:06-0400 Body weight 73.03 kg Jorge Bearden MD Work Phone: [facility] 03-23-2022 08:06-0400 Diastolic blood pressure 78 mm[Hg] Jorge Bearden MD Work Phone: [facility] 03-23-2022 08:06-0400 Heart rate 66 /min Jorge Bearden MD Work Phone: [facility] 03-23-2022 08:06-0400 Systolic blood pressure 120 mm[Hg] Jorge Bearden MD Work Phone: [facility] 03-21-2022 08:09-0400 Body mass index (BMI) [Percentile] Per age and sex 95.1 % No Primary Care Physician [facility] Work Phone: 03-21-2022 08:09-0400 Body mass index (BMI) [Ratio] 30.8 kg/m2 No Primary Care Physician [facility] Work Phone: 03-21-2022 08:09-0400 Body weight 73.93 kg No Primary Care Physician [facility] Work Phone: 03-21-2022 08:09-0400 Diastolic blood pressure 80 mm[Hg] No Primary Care Physician [facility] Work Phone: 03-21-2022 08:09-0400 Systolic blood pressure 128 mm[Hg] No Primary Care Physician [facility] Work Phone: Encounters Encounter Date Encounter Type Care Provider Facility Start: 02-17-2025 End: 02-17-2025 Patient encounter procedure Bernarda Weber CNM -[facility] @ Start: 02-17-2025 End: 02-17-[address] Jorge Bearden MD Work Phone: -[facility] @ Start: 02-12-2025 End: 02-12-[address] Mar Quigley MD -[facility] Work Phone: Start: 02-12-2025 End: 02-12-[address] Jorge Bearden MD Work Phone: -[facility] Start: 02-05-2025 End: 02-05-[address] Jorge Bearden MD Work Phone: [facility] Work Phone: Start: 02-05-2025 End: 02-05-2025 Patient encounter procedure Bernarda Weber CNM -[facility] Work Phone: Start: 01-25-2025 End: 01-25-[address] Jorge Bearden MD Work Phone: [facility] Work Phone: Start: 01-25-2025 End: 01-25-[address] Lizet Sood DO -Laboratory Specimen Work Phone: Start: 01-25-2025 End: 01-25-[address] Lizet Sood DO -[facility] Work Phone: Start: 01-25-2025 End: 01-25-[address] Jorge Bearden MD Work Phone: [facility] Work Phone: Start: 01-25-2025 End: 01-25-2025 ambulatory Lizet Sood Facility:[facility] Start: 01-14-2025 End: 01-14-2025 Patient encounter procedure Bernarda Weber CNM -[facility] Work Phone: Start: 01-14-2025 End: 01-14-[address] Jorge Bearden MD Work Phone: [facility] Work Phone: Start: 12-28-2024 End: 12-28-2024 Patient encounter procedure Bernarda GARCIA -[facility] Work Phone: Start: 12-28-2024 End: 12-28-2024 ambulatory Bernarda Weber Facility:[facility] Start: 12-21-2024 ambulatory Bernarda Weber Facility :[facility] Start: 12-21-2024 Non-patient / Non-visit Bernarda Weber [facility] Start: 12-20-2024 End: 12-20-2024 ambulatory Bernarda Weber Facility:[facility] Start: 12-20-2024 End: 12-20-2024 [facility] Work Phone: Start: 12-18-2024 End: 12-18-[address] Mar Quigley MD -[facility] Work Phone: Start: 12-18-2024 End: 12-18-2024 ambulatory Mar Quigley Facility:[facility] Start: 12-01-2024 ambulatory Lizet Bowmanty:[facility] Start: 12-01-2024 Non-patient / Non-visit Dr. Lizet Sood DO [facility] Start: 12-01-2024 End: 12-01-[address] Jorge Bearden MD Work Phone: [facility] Work Phone: Start: 12-01-2024 End: 12-01-[address] [facility] Work Phone: Start: 11-30-2024 End: 11-30-2024 Patient encounter procedure Bernarda GARCIA -[facility] Work Phone: Start: 11-30-2024 End: 11-30-[address] Jorge Bearden MD Work Phone: [facility] Work Phone: Start: 11-30-2024 End: 11-30-2024 ambulatory Lizet Sood Facility:[facility] Start: 11-19-2024 End: 11-19-2024 Patient encounter procedure Bernarda GARCIA -[facility] Work Phone: Start: 11-19-2024 End: 11-19-2024 ambulatory Jorge Bearden Facility:[facility] Start: 11-09-2024 End: 11-09-[address] Lizet Sood DO -[facility] Work Phone: Start: 11-09-2024 End: 11-09-2024 ambulatory Lizet Sood Facility:[facility] Start: 10-12-2024 End: 10-12-2024 Emergency department patient visit [facility] Start: 10-11-2024 End: 10-11-2024 ambulatory Charlene Talavera RN NURSE SECURITY TEAM LEAD Comment on above: Fever Start: 10-11-2024 End: 10-11-2024 Patient encounter procedure Iker Morrow APRN.[facility] Work Phone: [facility] Comment on above: Sore throat (Primary Dx); URI, acute Start: 10-08-2024 End: 10-08-2024 Patient encounter procedure Bernarda GARCIA -[facility] Start: 10-08-2024 End: 10-08-2024 ambulatory Bernarda Weber Facility:[facility] Start: 09-23-2024 End: 09-23-2024 ambulatory TANESHA [facility] Start: 09-11-2024 End: 09-11-2024 Patient encounter procedure Bernarda GARCIA -[facility] Work Phone: Start: 09-11-2024 End: 09-11-2024 ambulatory Bernarda Weber Facility:[facility] Start: 08-24-2024 End: 08-24-[address] Mar Quigley MD -[facility] Work Phone: Start: 08-24-2024 End: 08-24-2024 ambulatory Mar Quigley Facility:[facility] Start: 2024 End: 2024 Emergency department patient visit Dr. Jonathon Vines MD -Emergency Department Work Phone: Start: 08-13-2024 End: 08-13-2024 Patient encounter procedure Jolene Lamar GENERAL INTERNAL MEDICINE DOCTOR-C -[facility] Work Phone: Start: 08-13-2024 End: 08-13-2024 ambulatory Jolene Willard GENERAL INTERNAL MEDICINE DOCTOR Facility:[facility] Start: 08-13-2024 End: 08-13-2024 ambulatory Jolene Willard GENERAL INTERNAL MEDICINE DOCTOR Facility:[facility] Start: 07-15-2024 End: 07-15-2024 ambulatory Jorge Bearden Facility:[facility] Start: 07-15-2024 End: 07-15-2024 ambulatory Bernarda Weber Facility:[facility] Start: 04-27-2024 End: 04-27-2024 ambulatory Jolene [place] GENERAL INTERNAL MEDICINE DOCTOR Facility:[facility] Start: 04-27-2024 End: 04-27-2024 ambulatory Jolene Willard GENERAL INTERNAL MEDICINE DOCTOR Facility:[facility] Start: 10-04-2023 End: 10-04-2023 Emergency department patient visit [facility]-Emergency Department Work Phone: Start: 09-21-2023 End: 09-21-2023 Emergency department patient visit JORGE [place] [facility] Start: 09-21-2023 End: 09-21-2023 Emergency department patient visit Jorge Bearden MD Work Phone: [facility] Comment on above: Bipolar depression ( CMS/HCC) (Primary Dx) Start: 07-30-2023 Telephone encounter Lizet perez [facility] Work Phone: Psychology Comment on above: bh consult Start: 03-03-2023 End: 03-04-2023 Emergency department patient visit Philip Ren [facility] Emergency 16 Start: 02-03-2023 End: 02-04-2023 Emergency department patient visit Feroz Martinez [facility] Emergency 01 Start: 01-23-2023 Telephone encounter Jorge lui MD Work Phone: [facility] [place] Comment on above: Vaginal Bleeding Start: 01-21-2023 ambulatory Deb Awad RN NURSE SECURITY TEAM LEAD Comment on above: Vaginal Bleeding Start: 01-18-2023 End: 01-18-[address] Jorge Bearden Work Phone: [facility] Work Phone: Start: 01-18-2023 End: 01-18-[address] Jorge Bearden Work Phone: [facility]-Ultrasound, [facility] Start: 01-16-2023 End: 01-16-[address] Jorge Bearden Work Phone: [facility] Work Phone: Start: 01-16-2023 End: 01-16-[address] Jorge Bearden Work Phone: [facility]-Laboratory Start: 01-16-2023 End: 01-16-[address] Jorge Bearden Work Phone: [facility] [place] [facility] Start: 11-30-2022 End: 11-30-2022 Patient encounter procedure Iker Morrow APRN.LITHOGRAPH PRINTER Work Phone: [facility] Comment on above: Rash (Primary Dx) Start: 07-03-2022 End: 07-03-2022 Patient encounter procedure Barbara Ellison APRN.LITHOGRAPH PRINTER Work Phone: [facility] Comment on above: URI with cough and c ongestion (Primary Dx) Start: 04-26-2022 End: 04-26-2022 ambulatory No Primary Care Physician [facility] Work Phone: Start: 04-26-2022 End: 04-26-2022 Patient encounter procedure No Primary Care Physician [facility]-Laboratory, Specimen Start: 04-26-2022 End: 04-26-2022 Patient encounter procedure No Primary Care Physician [facility] Start: 03-29-2022 End: 03-29-2022 Patient encounter procedure No Primary Care Physician [facility] Start: 03-23-2022 End: 03-23-2022 Patient encounter procedure Jorge Bearden MD Work Phone: [facility] [place] Comment on above: Anxiety and depressi on (Primary Dx); Chronic tension-type headache, not intractable; Atrophy of skin and soft tissue; Breakthrough bleeding Start: 03-21-2022 End: 03-21-2022 Patient encounter procedure No Primary Care Physician [facility]-Laboratory, Specimen Start: 03-21-2022 End: 03-21-2022 Patient encounter procedure No Primary Care Physician [facility] Procedures Date Procedure Procedure Detail Performing Clinician [...] 10-11-2024 STREP A MOLECULAR (POC) Iker Morrow APRN.LITHOGRAPH PRINTER Work Phone: Start: 09-21-2023 DRUG SCREEN,URINE VICHARLAN [...] 2) Zoste r Vaccines (1 of 2) [facility] Start: 04-12-2031 DTaP/Tdap/Td Vaccine s (7 - Td or Tdap) DTaP/Tdap/Td Vaccines (7 - Td or Tdap) [facility] Start: 04-12-2031 Urine microalbumin profile [facility] Start: 01-25-2025 Group B Streptococcu s Culture Group B Streptococcus Culture [facility] Start: 01-25-2025 Streptococcus agalac tiae [Presence] in Unspecified specimen by Organism specific culture [facility] Start: 12-20-2024 Nonstress test [facility] Start: 12-20-2024 Obstetric monitoring [facility] Start: 12-20-2024 [facility] Start: 12-20-2024 Vital signs measurements [facility] Start: 12-01-2024 Nonstress test [facility] Start: 12-01-2024 End: 12-01-2024 [facility] Start: 12-01-2024 Insertion of cathete r into peripheral vein [facility] Start: 12-01-2024 Obstetric monitoring [facility] Start: 12-01-2024 Vital signs measurements [facility] Start: 12-01-2024 Bacteria identified in Urine by Culture Urine Culture [facility] Start: 12-01-2024 Iv infusion hydratio n each additional hour HYDRATE IV INFUSION ADD-ON [facility] Start: 12-01-2024 Ther proph/dx njx iv push single/1st sbst/drug THER/PROPH/DIAG INJ IV PUSH [facility] Start: 12-01-2024 Patient discharge [facility] Start: 2024 Screening for malign ant neoplasm of cervix Cervical Cancer Screening [facility] Start: 2024 [facility] Start: 07-29-2024 Covid-19 Vaccine (#1) Covid-19 Vacci ne (#1) [facility] Comment on above: Postponed from 02/19 (Declined at this time) Start: 04-19-2024 Covid-19 Vaccine ( season) Covid-19 Vaccine ( season) [facility] Start: 04-19-2024 Influenza vaccination Influenza Vacc ine (#1) [facility] Start: 02-16-2024 Influenza vaccination Influenza Vacc ine (#1) [facility] Comment on above: Postponed from 04/19 (Declined at this time) Start: 01-17-2024 GC (Gonorrhea) Scree ezequiel (18-24) GC (Gonorrhea) Screening () [facility] Start: 01-17-2024 Screening for Chlamy racquel trachomatis Chlamydia Screening () [facility] Start: 04-19-2023 Influenza vaccination Influenza Vacc ine (#1) [facility] Start: 03-23-2023 Adult depression scr eening assessment DEPRESSION SCREENING [facility] Start: 03-23-2023 COVID-19 VACCINE (#1) COVID-19 VACCI NE (#1) [facility] Comment on above: Postponed from 02/19 (Declined at this time) Start: 03-21-2023 CHLAMYDIA SCREENING () CH LAMYDIA SCREENING () [facility] Start: 07-03-2022 End: 07-17-2022 Influenza virus A and B RNA and SARS-CoV-2 (COVID-19) N gene panel - Respiratory specimen by PAULA with probe detection COVID WITH FLUA+B, ROUTINE Microbiology Routine URI with cough and congestion Expected: 07/03/2022, Expires: 07/17/2022 [facility] Work Phone: Comment on above: Expected: 07/03/2022 , Expires: 07/17/2022 Start: 04-19-2022 Influenza vaccination INFLUENZA (#1) [facility] Start: 03-24-2022 GC (GONORRHEA) SCREE EZEQUIEL (18-24) GC (GONORRHEA) SCREENING () [facility] Start: 03-23-2022 End: 05-23-2022 CBC panel - Blood by Automated count [facility] Work Phone: Comment on above: Expected: 03/23/2022 , Expires: 05/23/2022 Start: 03-23-2022 End: 05-23-2022 Comprehensive metabolic 2000 panel - Serum or Plasma [facility] Work Phone: Comment on above: Expected: 03/23/2022 , Expires: 05/23/2022 Start: 10-13-2021 Hepatitis A Vaccines (2 of 2 - 2-dose series) Hepatitis A Vaccines (2 of 2 - 2-dose series) [facility] Start: 10-13-2021 HPV VACCINE (3 - 3-d ose series) HPV VACCINE (3 - 3-dose series) [facility] Start: 2021 Hepatitis C screening Hepatitis C Sc [facility] Start: 2017 PEDS TO ADULT TRANSI TION ANNUAL ASSESSMENT PEDS TO ADULT TRANSITION ANNUAL ASSESSMENT [facility] Start: 2015 PEDS TO ADULT TRANSI TION INITIAL DISCUSSION PEDS TO ADULT TRANSITION INITIAL DISCUSSION [facility] Start: 2006 Well Child Visit (WC V) - Annual Well Child Visit (WCV) - Annual [facility] Start: 02-20-2004 COVID-19 Vaccine (#1) COVID-19 Vacci ne (#1) [facility] Start: 2003 Hearing Screening (#1) Hearing Scree ezequiel (#1) [facility] Start: 2003 HIV screening HIV Screening [facility] Start: 2003 Lipid panel Lipid Panel [facility] Beta-hemolytic Streptococcus culture [facility] Choriogonadotropin ( test) [Presence] in Serum or Plasma [facility] COVID & INFLUENZA A/ B & RSV PCR, ROUTINE COVID & INFLUENZA A/B & RSV PCR, ROUTINE Microbiology Routine URI, acute Ordered: 10/11/2024 [facility] Comment on above: Ordered: 10/11/2024 End: 09-21-2023 Extra Urine [facility] Extra Urine [facility] Lab Timed Once for 1 Occurrences starting 09/21/2023 until 09/21/2023 [facility] Work Phone: Comment on above: Once for 1 Occurrenc es starting 09/21/2023 until 09/21/2023 INFLUENZA A&B MOLECU LAR (POC) INFLUENZA A&B MOLECULAR (POC) Microbiology Routine URI, acute Ordered: 10/11/2024 [facility] Work Phone: Comment on above: Ordered: 10/11/2024 Patient Education [facility] Work Phone: Patient referral [facility] Work Phone: Streptococcus agalac tiae [Presence] in Unspecified specimen by Organism specific culture [facility] End: 09-21-2023 Urinalysis complete W Reflex Culture panel - Urine [facility] Service [facility] Work Phone: Comment on above: STAT (Lab) for 1 Occ urrences starting 09/21/2023 until 09/21/2023 Urine culture [facility] US Pelvis [facility] Work Phone: US Pelvis transvaginal [facility] Work Phone: [facility] Immunizations Immunization Date Immunization Notes Care Provider [place] 04-24-2022 Human Papillomavirus 9-valent vaccine Barbara Ellison APRN.CNP Work Phone: [facility] 04-24-2022 influenza, injectabl e, quadrivalent, contains preservative Barbara Ellison APRN.LITHOGRAPH PRINTER Work Phone: [facility] 04-24-2022 influenza virus vacc ine, unspecified formulation Lizet Mcfadden [facility] Work Phone: [facility] 05-15-2021 Human Papillomavirus 9-valent vaccine Jorge Bearden MD Work Phone: [facility] Work Phone: 05-15-2021 influenza, injectabl e, quadrivalent, preservative free Jorge Bearden MD Work Phone: [facility] Work Phone: 05-15-2021 meningococcal B vacc ine, recombinant, OMV, adjuvanted Jorge Bearden MD Work Phone: [facility] Work Phone: 04-12-2021 hepatitis A vaccine, pediatric/adolescent dosage, 2 dose schedule Jorge Bearden MD Work Phone: [facility] Work Phone: 04-12-2021 Human Papillomavirus 9-valent vaccine Jorge Bearden MD Work Phone: [facility] Work Phone: 04-12-2021 meningococcal B vacc ine, recombinant, OMV, adjuvanted Jorge Bearden MD Work Phone: [facility] Work Phone: 04-12-2021 meningococcal polysaccharide (groups A, C, Y and W-135) diphtheria toxoid conjugate vaccine (MCV4P) Jorge Bearden MD Work Phone: [facility] Work Phone: 04-12-2021 tetanus toxoid, redu yaya diphtheria toxoid, and acellular pertussis vaccine, adsorbed Jorge Bearden MD Work Phone: [facility] Work Phone: 04-12-2021 hepatitis A and hepatitis B vaccine Jorge Bearden MD Work Phone: [facility] Work Phone: 04-13-2009 diphtheria, tetanus toxoids and acellular pertussis vaccine, unspecified formulation Jorge Bearden MD Work Phone: [facility] Work Phone: 04-13-2009 measles, mumps and rubella virus vaccine Jorge Bearden MD Work Phone: [facility] Work Phone: 04-13-2009 poliovirus vaccine, inactivated Jorge Bearden MD Work Phone: [facility] Work Phone: 04-13-2009 varicella virus vaccine Wale Bearden MD Work Phone: [facility] Work Phone: 06-17-2006 influenza nasal, unspecified formulation Jorge Bearden MD Work Phone: [facility] Work Phone: 11-28-2004 diphtheria, tetanus toxoids and acellular pertussis vaccine, unspecified formulation Jorge Bearden MD Work Phone: [facility] Work Phone: 11-28-2004 haemophilus influenz ae type b conjugate and Hepatitis B vaccine Jorge Bearden MD Work Phone: [facility] Work Phone: 11-28-2004 pneumococcal conjuga te vaccine, 7 valent Jorge Bearden MD Work Phone: [facility] Work Phone: 11-28-2004 poliovirus vaccine, inactivated Jorge Bearden MD Work Phone: [facility] Work Phone: 10-19-2004 influenza virus vacc ine, whole virus Jorge Bearden MD Work Phone: [facility] Work Phone: 10-19-2004 measles, mumps and rubella virus vaccine Jorge Bearden MD Work Phone: [facility] Work Phone: 10-19-2004 varicella virus vaccine Wale Bearden MD Work Phone: [facility] Work Phone: 03-23-2004 diphtheria, tetanus toxoids and acellular pertussis vaccine, unspecified formulation Jorge Bearden MD Work Phone: [facility] Work Phone: 03-23-2004 haemophilus influenz ae type b vaccine, PRP-T conjugate Jorge Bearden MD Work Phone: [facility] Work Phone: 03-23-2004 pneumococcal conjuga te vaccine, 7 valent Jorge Bearden MD Work Phone: [facility] Work Phone: 2003 diphtheria, tetanus toxoids and acellular pertussis vaccine, unspecified formulation Jorge Bearden MD Work Phone: [facility] Work Phone: 2003 haemophilus influenz ae type b vaccine, PRP-T conjugate Jorge Bearden MD Work Phone: [facility] Work Phone: 2003 pneumococcal conjuga te vaccine, 7 valent Jorge Bearden MD Work Phone: [facility] Work Phone: 2003 poliovirus vaccine, inactivated Jorge Bearden MD Work Phone: [facility] Work Phone: 2003 diphtheria, tetanus toxoids and acellular pertussis vaccine, unspecified formulation Jorge Bearden MD Work Phone: [facility] Work Phone: 2003 haemophilus influenz ae type b conjugate and Hepatitis B vaccine Jorge Bearden MD Work Phone: [facility] Work Phone: 2003 haemophilus influenz ae type b vaccine, PRP-T conjugate Jorge Bearden MD Work Phone: [facility] Work Phone: 2003 hepatitis B vaccine, pediatric or pediatric/adolescent dosage Jorge Bearden MD Work Phone: [facility] Work Phone: 2003 pneumococcal conjuga te vaccine, 7 valent Jorge Bearden MD Work Phone: [facility] Work Phone: 2003 poliovirus vaccine, inactivated Jorge Bearden MD Work Phone: [facility] Work Phone: 2003 hepatitis B vaccine, pediatric or pediatric/adolescent dosage Jorge Bearden MD Work Phone: [facility] Work Phone: Payers Date Payer Category Payer Medicaid [id number] 2024 Unknown [id number] 2024 Self-pay [id number] 2019 Unknown ANTHEM BLUE CARD PPO OOS [id number] 2019-Present [phone] [address] [place] [address] PPO [id number] 2019 Unknown [id number] 2019 Unknown [id number] 2003 Unknown [id number] 2003 Unknown [id number] 2003 Unknown [id number] 2003 Unknown [id number] 2.16.840.1.671805.3.579.2.479 2005 Unknown [id number] 2.16.840.1.611016.3.579.2.651 Unknown [id number] Unknown [id number] Unknown [id number] 2.16.840.1.856500.3.579.2.462 Unknown [id number] 2.16.840.1.909835.3.579.2.462 Unknown [id number] 2.16.840.1.783928.3.579.2.462 Unknown [id number] 2.16.840.1.484022.3.579.2.462 Unknown [id number] 2.16.840.1.586708.3.579.2.462 Unknown [id number] 2.16.840.1.143206.3.579.2.462 Unknown [id number] 2.16.840.1.859496.3.579.2.462 Unknown [id number] 2.16.840.1.082126.3.579.2.462 Unknown [id number] 2.840.1.380247.3.579.2.462 Unknown [id number] 2.840.1.368651.3.579.2.462 Unknown [id number] 2.840.1.049542.3.579.2.462 Unknown [id number] 2.840.1.905429.3.579.2.462 Unknown [id number] 2.840.1.019678.3.579.2.462 Unknown [id number] 2.840.1.637330.3.579.2.462 Unknown [id number] 2.16.840.1.008038.3.579.2.462 Unknown [id number] 2.16.840.1.059667.3.579.2.462 Unknown [id number] 2.16.840.1.456240.3.579.2.462 Unknown [id number] 2.16.840.1.716528.3.579.2.462 Unknown [id number] 2.16.840.1.601064.3.579.2.462 Unknown [id number] 2.16.840.1.382257.3.579.2.462 Unknown [id number] 2.16.840.1.914884.3.579.2.462 Unknown [id number] 2.16.840.1.629695.3.579.2.462 Unknown [id number] 2.16.840.1.979227.3.579.2.462 Unknown [id number] 2.16.840.1.230549.3.579.2.462 Unknown [id number] 2.16.840.1.175009.3.579.2.462 Unknown [id number] 2.16.840.1.699018.3.579.2.462 Social History Date Type Detail Facility Start: 03-23-2022 End: 07-03-2022 Tobacco smoking status NHIS Never smoked tobacco [facility] Start: 03-23-2022 End: 07-03-2022 Tobacco use and exposure Smokeless tobacco non-user [facility] Start: 03-23-2022 End: 10-11-2024 Alcohol intake Ex-drinker (finding) [facility] Start: 03-23-2022 History SDOH Alcohol Frequency 1 [facility] Start: 2005 Sex Assigned At Not on file [facility] Start: 03-13-2022 End: 09-21-2023 Exposure to SARS-CoV-2 (event) Not sure [facility] Start: 03-26-2022 End: 01-16-2023 Tobacco smoking status NHIS Unknown if ever smoked [facility] Start: 12-28-2019 With Family [facility] Start: 2005 Sex Assigned At Female [facility] Start: 03-23-2022 End: 08-05-2023 History of Social function [facility] Work Phone: Start: 03-23-2022 End: 08-05-2023 Alcohol Use Disorder Identification Test - Consumption [AUDIT-C] [facility] Work Phone: How often to you hav e a drink containing alcohol? Never [facility] Work Phone: Average Number of Drinks Not on file [facility] Start: 03-24-2022 Gender identity Identifies as female gender (finding) [facility] Start: 03-24-2022 Sexual orientation Heterosexual (finding) [facility] Start: 06-01-2024 [facility] Start: 2024 End: 02-12-2025 Tobacco smoking status NHIS Ex-smoker (finding) [facility] Start: 12-01-2024 End: 12-02-2024 Sex Female (finding) [facility] Clinical Notes 03-23-2022 to 02-17-2025 Note Date & Type Note Facility 02-17-2025 Progress note [facility] 02-12-2025 Progress note [facility] 02-05-2025 Progress note [facility] 01-25-2025 Progress note [facility] 01-14-2025 Progress note [facility] 11-09-2024 Evaluation note Diagnosis Onset Date Resolution [...] of high-risk acute February 12, 2025 1:28pm [facility] Work Phone: 1(628) 555-805403-24-2025 Evaluation note* Diagnosis Onset Date Resolution Status [...] high-risk acute February 17, 2025 8 :33am [facility] Work Phone: 1(844) 847-913503-02-2025 NoteDischarge Instructions Discharge Summary [address] [place] [address] [id number] 10/12/2024 Patient: ERIKA PINEDA Sex: Female : 2005 Age: 19y Thank you for visiting [facility]. You have been evaluated today by Ronaldo [...] of 9 Discharge Instructions Patient Signature Facility Deputy Jailer Date/Time General Instructions with ExitWriter [address] [address] [id number] 10/12/2024 Patient: ERIKA PINEDA Sex: Female : 2005 Age: 19y Thank you for visiting [facility]. You have been evaluated today by Ronaldo [...] 2 of 9 Discharge Instructions Discharge Summary [address] [address] [id number] 10/12/2024 Patient: ERIKA PINEDA Sex: Female : 2005 Age: 19y Thank you for visiting [facility]. You have been evaluated today by George Watson, D.O. for the following condition(s): Principal Diagnosis Influenza type A with upper respiratory infection. Probable costochondritis INSTRUCTIONS Rest. Prescription Medications: Reglan 10 mg tablet: Take 1 tablet by mouth three times a day prn for nausea/vomiting for 7 days, dispense 21 tablet. Refills 0. Pharmacy: [facility] [id number] [place] [address]. Follow-up: Follow up with your doctor in three days. Call for an appointment. 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 [address] [id number] 10/12/2024 Patient: ERIKA PINEDA Sex: Female : 2005 Age: 19y Thank you for visiting [facility]. You have been evaluated today by George Watson D.O. for the following condition(s): Principal Diagnosis Influenza type A with upper respiratory infection. Probable costochondritis INSTRUCTIONS Rest. Prescription Medications: Reglan 10 mg tablet: Take 1 tablet by mouth three times a day prn for nausea/vomiting for 7 days, dispense 21 tablet. Refills 0. Pharmacy: [facility] [id number] [place] [address]. Follow-up: Follow up with your doctor in [...] signs listed below. Home (more content not included)...[facility] Telephone encounter Note* Telephone Encounter - Charlene Talavera RN - 10/11/2024 5:49 PM EST Reason for Call: flu Outcome: See PCP within 24 hours Patient was conferenced to [facility] in Appointment Center for PCP scheduling. Reason [...] MCKENZIE: 02/22/25 10. TRAVEL: no Protocols used: Peben-PJHRK-CP, - Efrxd-MTHIB-JX [facility]02-23-2025 Miscellaneous Notes* Telephone Encounter - Charlene Talavera RN - 10/11/2024 5:49 PM EST Reason for Call: flu Outcome: See PCP within 24 hours Patient was conferenced to [facility] in Appointment Center for PCP scheduling. Reason [...] MCKENZIE: 02/22/25 10. TRAVEL: no Protocols used: Rudrg-QAXBN-QP, - Kkkqz-XFXWL-QC documented in this encounterLake[facility]02-23-2025 RbzjMJKR-AOJ-3 (AGENT OF COVID-19) RNA: Not detected INFLUENZA A RNA: Detected INFLUENZA B RNA: Not detected RESPIRATORY SYNCYTIAL VIRUS (RSV) RNA: Not detectedSouthern Ohio Medical CenterComment on above:Performed By: #### [id number] #### [facility] CLIA [id number] [address] [place] [address] STATES OF [id number] NoteHNO ID: [id number] Author: IKER MORROW APRN.LITHOGRAPH PRINTER Service: ? Author Type: Nurse Practitioner Type: [...] Patient agreeable to treatment plan. Iker Morrow APRN.[facility]02-23-2025 History of Present illness Narrative* Iker Morrow APRN.[facility] - 10/11/2024 11:09 AM EST CC: Patient [...] plan. Iker Morrow APRN.HAJA documented in this encounterL[facility]02-20-2025 Evaluation note* Diagnosis Onset Date [...] high-risk acute January 14, 2025 1 0:39am [facility] Work Phone: 1(363) 915-662702-20-2025 Evaluation note* Diagnosis Onset Date Resolution Status [...] high-risk acute January 25, 2025 1 0:37am [facility] Work Phone: 1(550) 169-504602-20-2025 Evaluation note* Diagnosis Onset Date Resolution Status [...] of high-risk acute February 05, 2025 11:35am [facility] Work Phone: [phone]) [phone] Evaluation note* Diagnosis Onset Date Resolution Status [...] of high-risk acute November 30, 2024 9:55am [facility] Work Phone: 1(728) 281-190002-03-2024 Reason for referral (narrative)* Consultation (Routine) - Authorized Specialty Diagnoses / Procedures Referred By Christian t Referred To Contact Family Medicine / Primary Care Tanesha Guevara PA-C [facility] [place] [address] Referral ID Status Reason Start Date Expiration Date Visits Requested Visits Authorized [id number] Authorized Specialty Services Required 09/21/2023 09/20/2024 1 [facility] Work Phone: 1(851) 964-137712-12-2023 Miscellaneous Notes* Telephone Encounter - Lizet Mcfadden LPCC - 07/30/2023 10:13 AM EST Behavioral Health Social Work Progress Note Patient identified for [facility] from: PCP Reason for referral: Resources Behavioral Health Resources: Psychiatry med management [facility] encounter type: Telephone Encounter Attempts to Outreach: 1 attempt Patient Discharged?: No Patient reported that caregiver was able to meet their needs today?: N/A Phone call placed today that [facility]. Left my contact information and brief nature of call. Initial outreach also completed via [facility] [place] offering patient [facility] assessment. GREG Balderas-S July 30, 2023 documented in this encounterLake[facility]06-07-2023 Miscellaneous Notes* Telephone Encounter - Fela Fraga RN - 01/23/2023 6:55 PM EDT Spoke with patient. She states her [facility] LINOLEUM MECHANIC did call her back , reviewed her symptoms and prescribed Progesterone. Fela Fraga RN * Telephone Encounter - Yee Sanchez APRN.CNP - 01/23/2023 6:02 PM EDT Schedule with [facility] gynecology, she does not need a referral Yee Sanchez APRN.HAJA * Telephone Encounter - Fela Fraga RN - 01/23/2023 4:07 PM EDT See triage note on 01/21. Patient calling to say she has a recurrence of and an increase in vaginalbleeding today with a few small clots. She says she called her LINOLEUM MECHANIC @ [facility] and spoke with a nurse. She was instructed to call her PCP. She is willing to see LINOLEUM MECHANIC here at [facility]. Fela Fraga RN documented in this encounterLakehealth [facility]06-05-2023 Miscellaneous Notes* Telephone Encounter - Deb Awad RN - 01/21/2023 7:45 PM EDT Reason for Call: Had one episode of slight vaginal bleeding a short time ago. Her period ended a week ago. Outcome: Suggested that she see her doctor if bleeding continues. She will call her head and neck surgeon doctor at [facility] to discuss with him. Reason for [...] as 3 out of 10, saw an head and neck surgeon recently and was diagnosed with an ovarian cyst. 6. : no chance of , does not use control 7. : N/A 8. HORMONES: none 9. BLOOD THINNERS: none 10. CAUSE: unknown 11. HEMODYNAMIC STATUS: feels a little weak, but just donated plasma 1 1/2 hours ago 12. OTHER SYMPTOMS:none Protocols used: Vaginal Bleeding - Otuglyxd-MZITT-YF documented in this encounterLakehealth [facility] Center04-14-2023 History of Present illness Narrative* Iker Morrow APRN.LITHOGRAPH PRINTER - 11/30/2022 7:45 AM EDT Images from [...] history is provided by the patient. No correspondence school teacher was used. Rash Review of Systems Constitutional: [...] anymore. Iker Morrow APRN.CNP documented in this encounterLakehealth [facility] Center11-15-2022 Instructions* Patient Instructions* Barbara Ellison APRN.CNP - 07/03/2022 6:33 PM EST covid and flu test ordered You will be notified in 12-24 hours, results available on [facility] Home isolation until covid results are [...] breath, inability to swallow. documented in this encounterLakehealth [facility] Center11-15-2022 History of Present illness Narrative* Barbara Ellison APRN.CNP - 07/03/2022 6:29 PM EST Subjective The history is provided by the patient. No correspondence school teacher was used. HPI Erika Pineda is a [...] have confirmed and edited as necessary, the [facility] Review of Systems Constitutional: Negative for chills [...] in 12-24 hours with results, available on LiveProfilehart - COVID WITH FLUA+B, ROUTINE Diagnosis and treatment plan were discussed and questions were answered to the patient's satisfaction. Pt acknowledged understanding of concepts and follow up plan. Specific signs and symptoms that would indicate the need for higher level of care were discussed indetail warranting prompt ER evaluation. Barbara Ellison APRN.HAJA documented in this encounterLakehealth [facility] Center08-05-2022 History of Past illness Narrative* Problem Noted Date Resolved Date Infection due to Chlamydia species 03/23/2022 03/23/2022 documented as of this encounter (statuses as of 07/04/2022) [facility]08-05-[facility] History of Past illness Narrative* Problem Noted Date Resolved Date Infection due to Chlamydia species 03/23/2022 03/23/2022 documented as of this encounter (statuses as of 11/30/2022) [facility]08-05-20[facility] History of Past illness Narrative* Problem Noted Date Resolved Date Infection due to Chlamydia species 03/23/2022 03/23/2022 documented as of this encounter (statuses as of 01/22/2023) [facility]08-05-[facility] History of Past illness Narrative* Problem Noted Date Resolved Date Infection due to Chlamydia species 03/23/2022 03/23/2022 documented as of this encounter (statuses as of 01/24/2023) [facility]08-[facility] History of Past illness Narrative* Problem Noted Date Diagnosed Date Resolved Date Infection due to Chlamydia species 03/23/2022 03/23/2022 Breakthrough bleeding 03/23/20222022 documented as of this encounter (statuses as of 07/30/2023) [facility]08-05-[facility] History of Present illness Narrative* Jorge Bearden MD - 03/23/2022 8:43 AM EDT This note was created using Dexcomter. 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 She was seeing [facility] for gynecology. PAST MEDICAL HISTORY Diagnosis Date [...] bleeding - ICD9: 626.6, ICD10: N92.1 Seeing [facility] gynecology. She will have Nexplanon removed. FDA warning discussed. - ZAFEMY 150 MCG-35 MCG/24 HR TRANSDERMAL PATCH Jorge Bearden MD documented in this encounterLakehealth [facility] Center08-05-2022 Instructions* Patient Instructions* Jorge Bearden MD - 03/23/2022 8:41 AM EDT ASK FOR 3RD DOSE OF GARDASIL. documented in this encounterLakehealth [facility]point Medical CenterEvaludelaware hospital for [facility] note* Diagnosis Anxiety and depression- Primary Dysthymic disorder Chronic tension-type headache, not intractable Chronic tension type headache Atrophy of skin and soft tissue Unspecified hypertrophic and atrophic condition of skin Breakthrough bleeding Metrorrhagia documented in this encounter [facility] CenterEval[facility]el[facility]* Diagnosis Onset Date Resolution Status Breakthrough bleeding on Nexplanon acute Pelvic pain acute [facility] Work Phone: Evaluation note* Diagnosis Onset Date Resolution Status Breakthrough bleeding on Nexplanon acute Pelvic pain acute Breakthrough bleeding on Nexplanon acute Encounter for routine gynecological examination noneactive [facility] Work Phone: Evaluation note* Diagnosis URI with cough and congestion- Primary [facility] Diagnosis Rash- Primary Rash and other nonspecific skin eruption documented in this encounter [facility]* Diagnosis Onset Date Resolution Status Irregular menstrual bleeding acute Pelvic pain acute [facility] Work Phone: Evaluation note* Diagnosis Bipolar depression (CMS/HCC)- Primary Bipolar I disorder, most recent episode (or current) depressed, unspecified documented in this encounter [facility] Work Phone: Evaluation noteNo assessment information available [facility] Work Phone: Evaluation note* Diagnosis Sore throat- Primary Acute pharyngitis URI, acute Acute upper respiratory infections of unspecified site documented in this encounter [facility] CenterHistory of Past illness Narrative* Problem Noted Date Resolved Date Infection due to Chlamydia species 03/23/2022 03/23/2022 documented as of this encounter (statuses as of 03/23/2022) [facility] CenterProgress note Author Bernarda Weber [facility] Note Date/Time January 14, 2025 11:07 am [facility] [address], [address] [place] [address] OFFICE VISIT Date of Service: 01/14/25 MR#: [id number] Acct: [id number] Name: ERIKA PINEDA Rep #: [id number] : 2005 Provider: MANINDER Weber Age/Sex: 19/F Location: [facility] [facility] Status: Signed Intake Vital Signs 08/13/24 08:33 08/13/24 09:09 12/18/24 09:39 12/28/24 14:02 01/14/25 10:44 Height 5 ft 1 in 5 ft 1 in 5 ft 1 in 5 ft 1 in 5 ft 1 in Weight: 185 lb BMI 34.9 BP 108/74 Intake Visit Reasons: 34 wk ob Chief Complaint: 34wk OB Mule Operator Required: No Is patient in pain?: No [...] family current occupational status: employed current occupation: [employer] pets and animals: Yes (Avoid litterbox) pets [...] physical activity do you participate in: none susana/episcopalian: None seatbelt use: always do you feel [...] fallen in the past year?: No 01/14/25 7207 <Electronically signed by Bernarda fox CNM> Date _ Bernarda Weber CNM Cosigner Signature: Date (if applicable) CC: ~ [facility] Work Phone: Progress note Author Lizet Flynn [facility] Note Date/Time January 25, 2025 11:07 am [facility] [address] [place] [address], [address] [place] [address] OFFICE VISIT Date of Service: 01/25/25 MR#: [id number] Acct: [id number] Name: ERIKA PINEDA Rep #: [id number] : 2005 Provider: Dr. Kenya Sood DO Age/Sex: 19/F Location: [facility] Status: Signed Intake Vital Signs 08/13/24 09:09 09/11/24 11:09 01/14/25 10:44 01/25/25 10:43 01/25/25 10:45 Height 5 ft 1 in 5 ft 1 in 5 ft 1 in 5 ft 1 in 5 ft 1 in Weight: 187 lb 4 oz BMI 35.4 BP 106/62 Intake Visit Reasons: 36 wk ob Mule Operator Required: No Is patient in pain?: No [...] family current occupational status: employed current occupation: [employer] pets and animals: Yes (Avoid litterbox) pets [...] physical activity do you participate in: none susana/episcopalian: None seatbelt use: always do you feel [...] MarquezBennettignmichael Signature: Date (if applicable) CC: ~ [facility] Work Phone: Progress note Author Bernarda Weber [facility] Note Date/Time February 05, 2025 11:5 6am [facility] [address] [place] [address], [address] [place] [address] OFFICE VISIT Date of Service: 02/05/25 MR#: [id number] Acct: [id number] Name: ERIKA PINEDA Rep #: [id number] : 2005 Provider: MANINDER Weber Age/Sex: 19/F Location: [facility] Status: Signed Intake Vital Signs 08/13/24 09:09 01/25/25 10:45 02/05/25 11:38 Height 5 ft 1 in 5 ft 1 in 5 ft 1 in Weight: 188 lb 2 oz BMI 35.5 BP 126/83 H Intake Visit Reasons: 37 wk ob Chief Complaint: 37 Week OB Mule Operator Required: No Is patient in pain?: No [...] family current occupational status: employed current occupation: [employer] pets and animals: Yes (Avoid litterbox) pets [...] physical activity do you participate in: none susana/episcopalian: None seatbelt use: always do you feel [...] this visit. [place] appropriate handout given. 02/05/25 7891 <Electronically signed by Bernarda fox CNM> Date _ Bernarda Weber CNM Cosigner Signature: Date (if applicable) CC: ~ [facility] Work Phone: Progress note Author Mar Quigley [facility] Note Date/Time February 12, 2025 1:45 pm [facility] [address] [place] [address], [address] [place] [address] OFFICE VISIT Date of Service: 02/12/25 MR#: [id number] Acct: [id number] Name: ERIKA PINEDA Rep #: [id number] : 2005 Provider: Dr. Ganesh Quigley MD Age/Sex: 19/F Location: [facility] Status: Signed Intake Vital Signs 08/13/24 09:09 02/05/25 11:38 02/12/25 13:31 Height 5 ft 1 in 5 ft 1 in 5 ft 1 in Weight: 187 lb 4 oz BMI 35.4 BP 112/76 Intake Visit Reasons: 38 wk ob Mule Operator Required: No Is patient in pain?: No [...] family current occupational status: employed current occupation: [employer] pets and animals: Yes (Avoid litterbox) pets [...] physical activity do you participate in: none susana/episcopalian: None seatbelt use: always do you feel [...] Symptoms of Preeclampsia, Infant Feeding No , [place] Education and Family Medical Leave or Disability [...] Cosigner Signature: Date (if applicable) CC: ~ [facility] Work Phone: Progress note Author Bernarda Weber [facility] Note Date/Time February 17, 2025 9:18a [facility] [address] [place] [address], [address] [place] [address] OFFICE VISIT Date of Service: 02/17/25 MR#: [id number] Acct: [id number] Name: ERIKA PINEDA DOUGLAS Rep #: [id number] : 2005 Provider: MANINDER Weber Age/Sex: 19/F Location: [facility] Status: Signed Intake Vital Signs 02/12/25 13:31 02/12/25 13:54 02/17/25 08:35 02/17/25 08:41 Height 5 ft 1 in 5 ft 1 in 5 ft 1 in 5 ft 1 in Weight: 189 lb 8 oz BMI 35.8 BP 132/84 H 121/82 H Intake Visit Reasons: 39wk ob Mule Operator Required: No Is patient in pain?: No [...] family current occupational status: employed current occupation: [employer] pets and animals: Yes (Avoid litterbox) pets [...] physical activity do you participate in: none susana/episcopalian: None seatbelt use: always do you feel [...] Symptoms of Preeclampsia, Infant Feeding No , [place] Education and Family Medical Leave or Disability [...] Peckigner Signature: Date (if applicable) CC: ~ [facility] Work Phone: Reason for referral (narrative)No reason for referral information availableAntelope Valley [facility] Medical [facility] Work Phone: Chief Complaint and Reason for Visit Chief Complaint pain with intercours e, bleeding PELVIC PAIN Reason for Visit Breakthrough bleedin g on Nexplanon Pelvic pain Chief Complaint pain with intercours e, bleeding PELVIC PAIN Nexplanon removal Annual (LINOLEUM MECHANIC) Reason for Visit Breakthrough bleedin g on [...] 10:37 am GERD (gastroesophageal reflux disease) [facility] 2024 10:37am Major depression January 25, 2025 [...] 11:3 5am GERD (gastroesophageal reflux disease) [facility] 2024 11:35am Major depression February 05, 2025 [...] 2025 10:39 am GERD (gastroesophageal reflux disease) [facility] 2024 10:39am Major depression January 14, 2025 10:39 am January 14, 2025 10:39 am Supervision of high-risk December 182024 10:39am Anxiety January 25, 2025 10:37 am Back pain affecting January 25, 2025 10:37am Bipolar disorder January 25, 2025 10:37 am GERD (gastroesophageal reflux disease) [facility] 2024 10:37am Major depression January 25, 2025 10:37 am January 25, 2025 10:37 am Supervision of high-risk January 25, 2025 10:37am Anxiety February 05, 2025 11:3 5am Back pain affecting February 05, 2025 11:35am Bipolar disorder February 05, 2025 11:3 5am GERD (gastroesophageal reflux disease) [facility] 2024 11:35am Major depression February 05, 2025 11:3 5am February 05, 2025 11:3 5am Supervision of high-risk February 05, 2025 11:35am Anxiety February 12, 2025 1:28 pm Back pain affecting February 12, 2025 1:28pm Bipolar disorder February 12, 2025 1:28 pm GERD (gastroesophageal reflux disease) [facility] 2024 1:28pm Major depression February 12, 2025 [...] 10:37 am GERD (gastroesophageal reflux disease) [facility] 2024 10:37am Major depression January 25, 2025 10:37 am January 25, 2025 10:37 am Supervision of high-risk January 25, 2025 10:37am Anxiety February 05, 2025 11:3 5am Back pain affecting February 05, 2025 11:35am Bipolar disorder February 05, 2025 11:3 5am GERD (gastroesophageal reflux disease) J [facility] 2024 11:35am Major depression February 05, 2025 [...] Do you have a Healthcare Power of [employer]? No 2024 2:15pm Additional Source Comments Source Comments (unrecognize d section and content) In the event this informatio n is protected by the Federal Confidentiality of Alcohol and Drug Abuse Patient Records regulations: The Federal rules restrict any use of the information to criminally investigate or prosecute any alcohol or drug abuse patient.[facility] the event this information is protected by the Federal Confidentiality of Alcohol and Drug Abuse Patient Records regulations: The Federal rules restrict any use of the information to criminally investigate or prosecute any alcohol or drug abuse patient.[facility] the event this information is protected by the Federal Confidentiality of Alcohol and Drug Abuse Patient Records regulations: The Federal rules restrict any use of the information to criminally investigate or prosecute any alcohol or drug abuse patient.[facility] the event this information is protected by the Federal Confidentiality of Alcohol and Drug Abuse Patient Records regulations: The Federal rules restrict any use of the information to criminally investigate or prosecute any alcohol or drug abuse patient.[facility] the event this information is protected by the Federal Confidentiality of Alcohol and Drug Abuse Patient Records regulations: The Federal rules restrict any use of the information to criminally investigate or prosecute any alcohol or drug abuse patient.[facility] the event this information is protected by the Federal Confidentiality of Alcohol and Drug Abuse Patient Records regulations: The Federal rules restrict any use of the information to criminally investigate or prosecute any alcohol or drug abuse patient.[facility] the event this information is protected by the Federal Confidentiality of Alcohol and Drug Abuse Patient Records regulations: The Federal rules restrict any use of the information to criminally investigate or prosecute any alcohol or drug abuse patient.[facility] the event this information is protected by the Federal Confidentiality of Alcohol and Drug Abuse Patient Records regulations: The Federal rules restrict any use of the information to criminally investigate or prosecute any alcohol or drug abuse patient.[facility] Reason for Visit (unrecogniz ed [...] s/s have been getting worse. Called the [employer] [employer] Crisis line today and was advised to come to ER. She denies any SI or HI. Pt is calm, tearful and cooperative. Reason Comments Shortness of Breath Cough, chest congest ion, low fever x last night Reason Comments Fever Care Teams (unrecognized sec tion and content) Senior Talent Acquisition Specialist Relationship Specialty Start Date End Date Jorge Bearden MD [address] [place] [address] PCP - General Internal Medicine 03/23/22 Senior Talent Acquisition Specialist Relationship Specialty Start Date End Date Jorge Bearden MD [address] [place], [place] [id number] PCP - General Internal Medicine 03/23/22 Senior Talent Acquisition Specialist Relationship Specialty Start Date End Date Jorge Bearden MD [address] [place], [place] [id number] PCP - General Internal Medicine 03/23/22 Senior Talent Acquisition Specialist Relationship Specialty Start Date End Date Jorge Bearden MD [address] [place], [place] [id number] PCP - General Internal Medicine 03/23/22 Team [...] CNM Attending Provider, Referring Pr ovider Active Senior Talent Acquisition Specialist Relationship Specialty Start Date End Date Jorge Bearden MD [address] [place], [place] [id number] PCP - General Internal Medicine 03/23/22 Senior Talent Acquisition Specialist Relationship Specialty Start Date End Date Jorge Bearden MD [address] [place], [place] [id number] PCP - General Internal Medicine 03/23/22 Senior Talent Acquisition Specialist Relationship Specialty Start Date End Date Jorge Bearden MD [address] [facility] [place] [address] PCP - General 02/03/23 Team Status: Inactive Member Role Status Dates Dr. Jorge Bearden MD Primary Care Provider Active Ed Physician Provider Emergency Provider Active Senior Talent Acquisition Specialist Relationship Specialty Start Date End Date Jorge Bearden MD [address] [facility] [place] [address] PCP - General Internal Medicine 03/23/22 Yee Carter, SUPERINTENDENT COMPRESSOR STATIONS.LITHOGRAPH PRINTER [address] [facility] [place] [address] Surveillance Specialist Internal Medicine 07/27/24 Senior Talent Acquisition Specialist Relationship Specialty Start Date End Date Jorge Bearden MD [address] [facility] [place] [address] PCP - General Internal Medicine 03/23/22 Yee Carter, SUPERINTENDENT COMPRESSOR STATIONS.LITHOGRAPH PRINTER [address] [facility] [place] [address] Surveillance Specialist Internal Medicine 07/27/24 Team Status: Inactive Member Role Status Dates Dr. Jorge Bearden MD Primary Care Provider Active Start: August 13, 2024 End: August 13, 2024 Dr. Jorge Bearden MD Referring Provider Active Start: August 13, 2024 End: August 13, 2024 Jolene Lamar GENERAL INTERNAL MEDICINE DOCTOR, GENERAL INTERNAL MEDICINE DOCTOR-C Attending Provider Active Start: August 13, 2024 End: August 13, 2024 Team Status: Inactive Member Role Status Dates Dr. Jorge Bearden MD Primary Care Provider Active Start: August 13, 2024 End: August 13, 2024 Jolene [place] GENERAL INTERNAL MEDICINE DOCTOR, GENERAL INTERNAL MEDICINE DOCTOR-C Attending Provider Active Start: August 13, 2024 End: August 13, 2024 Jolene Lamar GENERAL INTERNAL MEDICINE DOCTOR, GENERAL INTERNAL MEDICINE DOCTOR-C Referring Provider Active Start: August 13, 2024 End: August 13, 2024 Team Status: Inactive Member Role Status Dates Dr. Jorge Bearden MD Primary Care Provider Active Start: 2024 End: 2024 Dr. Jonathon Vines MD Attending Provider Active Start: 2024 End: 2024 Dr. Jonathon Vines MD Emergency Provider Active Start: 2024 End: 2024 Team Status: Inactive Member Role Status Dates Dr. Jroge Bearden MD Primary Care Provider Active Start: [...] 28, 2024 End: December 28, 2024 Bernarda eWber CNM Attending Provider Active S tart: December [...] Status: Inactive Member Role/Relationship Status Dates Dr. Joreg Bearden MD Primary Care Provider Active Start: [...] section and content) DATE CREATED AUTHOR 07/09/2022 [facility] DATE CREATED AUTHOR AUTHOR'S ORGANIZ ATION 04/11/2023 [facility] DATE CREATED AUTHOR AUTHOR'S ORGANIZ ATION 09/28/2023 [facility] DATE CREATED AUTHOR AUTHOR'S ORGANIZ ATION 09/25/2024 [facility] DATE CREATED AUTHOR AUTHOR'S ORGANIZ ATION 10/12/2024 [facility] DATE CREATED AUTHOR AUTHOR'S ORGANIZ ATION 10/19/2024 [facility] DATE CREATED AUTHOR AUTHOR'S ORGANIZ ATION 02/19/2025 [facility] <item><item> Privacy Markings (unrecogniz ed section [...] BE BASED ON THE PRIMARY CLINICAL RECORDS. [employer] [facility]. provides no warranty or guarantee of the accuracy or completeness of information in this document.
[2025-02-20] MEDS: Lactated Ringers 1,000 ML 999 ML IV ×2 (15:51→22:03)
[2025-02-20 16:03] LABS: Hematocrit 35.5 % (37-47); Hemoglobin 12.1 g/dL (12.0-15.0); Immature Granulocytes Count 0.070 X10^3/uL (0.0-0.0); Mean Corp Hgb Conc 34.1 g/dL (32-36); Mean Corpuscular Volume 86.6 fL (81-99); Mean Platelet Vol. 11.1 fl (6.2-12.0); NRBC Flagged by Analyzer 0 % (0-5); Platelet Count 286 K/mm3 (150-450); RBC Distribution Width CV 13.1 % (11.6-14.6); RBC Distribution Width SD 40.7 fl (35.1-43.9); Red Blood Count 4.10 M/mm3 (4.2-5.4); White Blood Count 12.7 K/mm3 (4.4-11.0)
--- NOTE | 2025-02-20 16:03 | HP.PCM.OB_ITS ---
HPI - General General Date of Admission: 02/20/25 Chief Complaint: contractions HPI Narrative KULDEEP PINEDA, is a 19 F who presents at 40 weeks, woke up with increased ctx. denies lof/vb. good fm. during triage, had recurrent variables with occ late decelerations. Maternal Data Information MCKENZIE Calculator Estimated Delivery Date Method Current WG Current Estimate 02/20/25 LMP (Certain) 40w 0d Other Estimates 02/24/25 Ultrasound #1 39w 3d PFSH PFSH Medical History Irregular menstrual bleeding Seasonal allergies Hx of trauma Home Medications ?Medication ?Instructions ?Recorded ?Last Taken ?Type ondansetron 4 mg disintegrating 4 mg PO Q6H PRN nausea and 12/01/24 12/20/24 10:00 Rx tablet vomiting #30 tabs 4 mg Allergy/AdvReac Type Severity Reaction Status Date / Time No Known Allergies Allergy Verified 02/20/25 14:32 Surgical History H/O oral surgery Social History adopted: No household members: family current occupational status: employed current occupation: [employer] pets and animals: Yes (Avoid litterbox) pets and animals: cat(s) and dog(s) history of recent travel: No sexually active: Yes Smoking Status: Former smoker quit date: 06/02/24 Electronic Cigarette Use: with nicotine alcohol intake: never substance use type: does not use well-balanced diet: about half the time caffeine: No eating out: 1-3 times/week during the past year weight has: remained stable what type of physical activity do you participate in: none susana/jehovah's witness: None seatbelt use: always do you feel safe at home: Yes additional social history: BF Richard- [employer] History 1 Elective abortions Hx Para 0 Spontaneous abortions Hx # Term Pregnancies Ectopic pregnancies Hx # Pregnancies Multiple births # of living children Visit Details Expected Delivery Route/Plan labor Preferences- CB/BF classes: [] labor support person: [] labor intervention preferences: [] pain management options preferred:open to hydrotherapy, nitrous, epidural cut cord/dad catch: [] : [] PP control planned: [] discussed possible routes of delivery and associated risks: [] special requests: [] Plans Covid status: [] Flu vaccine: [] Tdap vaccine: given Rhogam: [] LARC form signed: declined movement and labor precautions reviewed. Problem list reviewed and updated with the most current plan of care details and appropriate orders placed. Relevant counseling for the gestational age provided. Continue routine care and follow up unless otherwise noted in visit notes/problem list details OB Flowsheet Initial Weight: Not Recorded Date -?-?-?-?-?-?-?-?-?-?-?-?- EGA Weight BP Urine Prot -?-?-?-?-?-?-?-?-?-?-?-?- Glucose FHR FuHt Pres Dilation -?-?-?-?-?-?-?-?-?-?-?-?- Effaced St Visit Note 07/15/24 -?-?-?-?-?-?-?-?-?-?-?-?- 8w 4d 162 lb 127/78 -?-?-?-?-?-?-?-?-?-?-?-?- 181 -?-?-?-?-?-?-?-?-?-?-?-?- KW- CRL cons wit h dates. Accepts NIPT 08/13/24 -?-?-?-?-?-?-?-?-?-?-?-?- 12w 5d 162 lb 6 oz 122/71 Nega tive -?-?-?-?-?--?-?-?-?-?-?-?- Negative 163 -?-?-?-?-?-?-?-?-?-?-?-?- MH-No VB. Nause a sp/sharon sent. Br US confirm FHT. PN labs today 08/24/24 -?-?-?-?--?-?-?-?-?-?-?-?- 14w 2d 163 lb 112/76 Negative -?-?-?-?-?-?-?-?-?-?-?-?- Negative 150 -?-?-?-?-?-?-?-?-?-?-?-?- SM- seen seconda ry to spotting over the weeknd seen in ER and viable IUP seen no abnormalities 09/11/24 -?-?-?-?-?-?-?-?-?-?-?-?- 16w 6d Negative -?-?-?-?-?-?-?-?-?-?-?-?- Negative 153 -?-?-?-?-?-?-?-?-?-?-?-?- KW- no vb/crampi ng. +flutters. anatomy US ordered. 10/08/24 -?-?-?-?-?-?-?-?-?-?-?-?- 20w 5d 168 lb 6 oz 107/55 -?-?-?-?-?-?-?-?-?-?-?-?- 145 20 -?-?-?-?-?-?-?-?-?-?-?-?- KW- no vb/crampi ng. good fm. anatomy scan reviewed 11/09/24 -?-?-?-?-?-?-?-?-?-?-?-?- 25w 2d 170 lb 8 oz 101/63 Nega tive -?-?-?-?-?-?-?-?-?-?-?-?- Negative 140 25 -?-?-?-?-?-?-?-?-?-?-?-?- JV- glucola inst ructions reviewed. no lof, vaginal bleeding, or dec fm. 11/19/24 -?-?-?-?-?-?-?-?-?-?-?-?- 26w 5d 174 lb 99/65 Negative -?-?-?-?-?-?-?-?-?-?-?-?- Negative 145 -?-?-?-?-?-?-?-?-?-?-?-?- KW- work in for decreased movement. no vb/lof/ctx. FHT with doppler easily found and movement noted 11/30/24 -?-?-?-?-?-?-?-?-?-?-?-?- 28w 2d 173 lb 101/68 Negative -?-?-?-?-?-?-?-?-?-?-?-?- Negative 140 28 -?-?-?-?-?-?-?-?-?-?-?-?- KW- no vb/lof/ct x. good fm. LARC today. tdap next visit. KW- no vb/lof/ctx. good fm. LARC today. tdap next visit. glucose today 12/18/24 -?-?-?-?-?-?-?-?-?-?-?-?- 30w 6d 177 lb 6 oz 107/71 -?-?-?-?-?-?-?--?-?-?-?-?- 140 31 -?-?-?-?-?-?-?-?-?-?-?-?- SM- no vb lof go od fm no regular ctx discussed labor preferences 12/28/24 -?-?-?-?-?-?-?-?-?-?-?-?- 32w 2d 180 lb 94/60 Negative -?-?-?-?-?-?-?-?-?-?-?-?- Negative 150 33 -?-?-?-?-?-?-?-?-?-?-?-?- kw- no vb/lof/ct x. good fm. FMLA papers to triage. 01/14/25 -?-?-?-?-?-?-?-?-?-?-?-?- 34w 5d 185 lb 108/74 Negative -?-?-?-?-?-?-?-?-?-?-?-?- Negative 155 34 -?-?-?-?-?-?-?-?-?-?-?-?- KW- no vb/lof/ct x. good fm. KT tape for RL pain. 01/25/25 -?-?-?-?-?-?-?-?-?-?-?-?- 36w 2d 187 lb 4 oz 106/62 Nega tive -?-?-?-?-?-?-?-?-?-?-?-?- Negative 154 36.5 Cephalic 1 .5 -?-?-?-?-?-?-?-?-?-?-?-?- 50 -2 JV- no lof , vaginal bleeding, or dec fm. gbs collected. discussed some symptoms of depression. states that people annoy me and I cry a lot she denies si/hi. Wants to start back on wellbutrin after delivery. plans to breast feed. 02/05/25 -?-?-?-?-?-?-?-?-?-?-?-?- 37w 6d 188 lb 2 oz 126/83 -?-?-?-?-?-?-?-?-?-?-?-?- 150 38 Cephalic 2 -?-?-?-?-?-?-?-?-?-?-?-?- 70 -2 KW- no vb/ lof/ctx. good fm. doing well. would like membrane sweep at 39 weeks 02/12/25 -?-?-?-?-?-?-?-?-?-?-?-?- 38w 6d 187 lb 4 oz 112/76 -?-?-?-?-?-?-?-?-?-?-?-?- 140 38 Cephalic 2 -?--?-?-?-?-?-?-?-?-?-?-?- 80 -2 SM- no vb lof good fm no regular ctx 02/17/25 -?-?-?-?-?-?-?-?-?-?-?-?- 39w 4d 189 lb 8 oz 132/84 121/82 Trace -?-?-?-?-?-?-?-?--?-?-?-?- Negative 140 40 Cephalic 3 -?-?-?-?-?-?-?-?-?-?-?-?- 80 -2 KW- no vb/ lof. having some irregular ctx x 3 days. no mtz/dizziness/blurred vision. NST FHR Rate Baby A Baseline: 150 Variability:: Minimal and Moderate Decelerations:: Late and Variable NST Reactive:: Non-Reactive FHR Category:: Category II Uterine Activity:: q3 Vital Signs Vital Signs Vital Signs: 02/20/25 14:31 02/20/25 14:31 02/20/25 14:31 Pulse Rate 107 H 101 H Respiratory Rate Blood Pressure 133/67 H BP Systolic 133 BP Diastolic 67 Pulse Ox 02/20/25 14:31 02/20/25 14:33 02/20/25 14:36 Pulse Rate 96 Respiratory Rate 16 Blood Pressure BP Systolic BP Diastolic Pulse Ox 98 02/20/25 14:36 Pulse Rate Respiratory Rate Blood Pressure BP Systolic BP Diastolic Pulse Ox 98 Weight Weight: 189 lb 3.2 oz Body Mass Index (BMI) 35.7 Physical Exam Const alert, oriented x3 and no apparent distress General Appearance: cooperative, comfortable and well kempt Orientation / Consciousness: awake and oriented to person Exam Limitations: no limitations HEENT normocephalic Neck full ROM Chest inspection of chest normal Resp normal respiratory effort, normal air movement and no retractions Effort and Inspection: able to speak in complete sentences and symmetric chest movement Cardio regular rate Peripheral Pulses: pulses 2+ throughout GI normal to inspection, nondistended, normoactive bowel sounds Inspection: gravid no CVA tenderness and appearance of the vagina normal External Female Exam: normal appearance of the urethra; Negative for external lesion OB / External & Speculum: external exam normal Manual OB Exam: estimated gestational size appropriate and presentation cephalic Uterus Palpation: Negative for uterus tender Extremity normal to inspection Skin no rashes or lesions noted Neuro deep tendon reflexes 2+ bilaterally and gait normal Motor Exam: strength 5/5 throughout and clonus absent Psych Activity / Motor Behavior: appropriate eye contact Speech: normal speech Labs Labs Labs: Blood Type O POSITIVE Antibody Screen NEGATIVE Hct 33.5 % (37-47) L Hgb 11.6 g/dL (12.0-15.0) L Obstetrics Ultrasound Syphilis Total Ab Nonreactive (Nonreactive) Rubella IgG Antibody Reactive (Nonreactive) Hep Bs Antigen Non-Reactive (Nonreactive) Hepatitis C Antibody Non-Reactive (Nonreactive) Chlamydia DNA (PAULA) Negative (Negative) N.gonorrhoeae DNA (PAULA) Negative (Negative) HIV 1&2 Antibody Nonreactive (Nonreactive) Glucose 1 Hr 50 gm 119 mg/dL (70-140) Assessment & Plan (1) Category II heart rate tracing during labor and delivery: COMMENT: augmentation. membrane sweep with admission. IVF. if not improved recurrent variables to AROM with amnioinfusion (2) Supervision of high-risk : QUALIFIERS: Trimester: second trimester Qualified Code(s): O09.92 - Supervision of high risk , unspecified, second trimester COMMENT: PRR, , MCKENZEI 02/20/25, girl Anette BF Richard (3) : QUALIFIERS: Weeks of gestation: 39 weeks Qualified Code(s): Z3A.39 - 39 weeks gestation of COMMENT: GBS neg declined NIPT & Carrier testing, nl anatomy (4) Anxiety: COMMENT: no meds, no counseling, doing well overall. wellbutrin in past. (5) Major depression: QUALIFIERS: Major depression recurrence: unspecified whether recurrent Active/Remission status: remission status unspecified Qualified Code(s): F32.9 - Major depressive disorder, single episode, unspecified (6) Bipolar disorder: QUALIFIERS: Active/Remission status: remission status unspecified Qualified Code(s): F31.9 - Bipolar disorder, unspecified PLAN: Plan Patient presents IAL, plan augmentation for cat 2 tracing management for , membrane sweep provided. pitocin/AROM PRN if needed. Pain management: plans epidural. GBS neg. Management of any complications: none I have reviewed the [facility] and made any clinically relevant updates. Dr. Burns updated on admission, exam and poc. agrees with cat 2 tracing management.
[2025-02-20] MEDS: Lactated Ringers 1,000 ML 50 ML IV (16:55)
[2025-02-20 17:19] LABS: Syphilis Antibodies Nonreactive (Nonreactive)
[2025-02-20] MEDS: 0.9% Saline Lock 10 ML Syringe IV ×2 (20:47→20:52)
[2025-02-20] MEDS: fentaNYL 100 MCG/2 ML Ampul IV (20:52)
[2025-02-20] MEDS: fentaNYL-bupivacaine (epidural) 100 ML BAG EPIDURAL (22:41)
[2025-02-21] VITALS (45 sets, daily range): BP systolic 94–136; BP diastolic 39–67; PULSE 57–140; RESP 14–18; TEMP 36.5–37.8; O2SAT 80–100
[2025-02-21] MEDS: Amnioinfusion- 0.9% NS 1,000 ML IV.SOLN. 1000 ML INTRA-UTER (00:04)
[2025-02-21] MEDS: 0.9% Saline Lock 10 ML Syringe IV ×5 (00:46→17:32)
[2025-02-21] MEDS: DiphenhydrAMINE 50 MG/ML Syringe 25 MG IV (01:38)
[2025-02-21] MEDS: fentaNYL-bupivacaine (epidural) 100 ML BAG EPIDURAL (01:50)
[2025-02-21] MEDS: Lactated Ringers 1,000 ML 999 ML IV (02:43)
[2025-02-21] MEDS: Cefazolin 2 GM in 0.9% Normal Saline (100mL Bag) 100 ML IV (03:39)
[2025-02-21] MEDS: Azithromycin 500 MG in 0.9% Normal Saline (250mL Bag) 250 ML 250 MG IV (03:40)
--- NOTE | 2025-02-21 04:38 | OP.PCM_ITS ---
Maternal Data Information MCKENZIE Calculator Estimated Delivery Date Method Current WG Current Estimate 02/20/25 LMP (Certain) 40w 1d Other Estimates 02/24/25 Ultrasound #1 39w 4d Operative Report (OB) Details Procedure Type: low transverse Date of Procedure: 02/21/25 Procedure Start Time: 03:52 Pre-Operative Diagnosis: Nonreassuring Status and Isolated Maternal Fever Post-Operative Diagnosis: Same as Pre-operative diagnosis and Other Post- Operative Diag (Posterior Presentation; Cord Entanglement) OTHER Post-Operative Diagnosis: Posterior Presentation; Cord Entanglement Classification: LIAN Type of Anesthesia: Epidural Special Medications: Ketamine during procedure Antibiotic Given: Ancef 2 grams IV x1 and Zithromax 500 mg/5 mL X1 Drain: Tyler to straight drain Estimated Blood Loss: 750 cc Fluids Replaced: cyystalloid Findings Description of surgery: Surgeon: Alfredo Burns MD, FACOG Anesthesia: Epidural per Sparkle Misgriselda, ASI Procedure: Primary Low Transverse Cervical Caesarean Section Findings: Viable female infant with Apgars of 4/8/9 in occiput posterior presentation with clear amniotic fluid and normal three-vessel placenta. Cord around neck x 3 tight. Indication: This is a 19-year-old G1, P0 who presented at 40+ weeks gestation in active labor. She progressed to an anterior lip without Pitocin but had intermittent minimal to no variability. During her labor she was also noted to have an occasional late deceleration. Patient pushed for about 1/2-hour from 0 station with a small anterior lip and during this time variability markedly improved; baby became tachycardic and a low-grade maternal fever of 100.2-100.8F was noted. When pushing was paused the late decelerations resumed and tachycardia of approximately 170 was noted with minimal variability. Given no prospect of delivering soon it was decided to proceed with primary section for increasing stress and isolated maternal fever with possible early chorioamnionitis. care has otherwise been uneventful. The patient was counseled regarding the risk and indications of this procedure including the possibility of bleeding infection and injury to surrounding structures such as bowel bladder. All questions were answered. Procedure: Patient was taken to the operating room where after epidural catheter was redosed, the patient was prepped and draped in usual sterile fashion. A Tyler catheter had been previously placed. The abdomen was entered through a Pfannenstiel incision and peritoneum was entered bluntly. After developing a bladder flap on the lower uterine segment a low transverse incision was made on the uterus and head was easily delivered onto the operative field the nose mouth and oropharynx were bulb suctioned. Subsequently a viable female was born from an occiput posterior presentation with Apgars of 4/8/9. The umbilical cord was doubly clamped and ligated and handed to the nursery personnel who were present for the delivery. Placenta was delivered and noted to be 3 vessels and normal. Cord was noted to be around the neck 3 times tight. Uterus was exteriorized and remaining placental tissue was removed. The uterus was then closed in 2 layers first with running locked 0 Vicryl suture followed by a second imbricating layer with 0 Vicryl suture. 0 Vicryl suture was then used in a horizontal mattress interrupted fashion to affect final hemostasis of the uterine incision line. Normal fallopian tubes and ovaries were visualized and the uterus was returned to the pelvis. Hemostasis was noted and rectus abdominis muscles were reapproximated in the midline with interrupted Number 0 Vicryl suture in a horizontal mattress fashion. Fascia was closed with running Number 1 PDS Strata fix suture. Subcutaneous tissue was irrigated with copious amounts of saline solution and then closed with running 3-0 Vicryl suture. Skin was closed with 4-0 monocryl suture in a running subcuticular fashion. Steri strips and a Mepilex dressing were placed across the incision. The patient tolerated the procedure well and was taken to the recovery room in satisfactory condition. Sponge, needle, and instrument counts were all reportedly correct. EBL was 750 cc. Ancef 2 gms and azithromycin 500 mg were given prior to the procedure. Spicemen to Pathology: None Complications: None Surgical findings: Viable female Apgars of 4/8/9 in occiput posterior presentation with clear amniotic fluid and normal three-vessel placenta. Cord around neck x 3 tight. Presentation: Vertex Amniotic Membrane Rupture Type: Artificial Amniotic Fluid Description: Clear Placental Delivery Description: Spontaneous Placenta Disposition: [facility] Specimen collected: No Cord Vessel Description: 3 Vessels Cord Entanglement: Around neck x 1, tight (Around neck x 3 tight) and Other Cord Gases: ABG and VBG Infant A gender: Female (1 minute): 4 (5 minute): 8 Environmental Maintenance Worker women nurse: Yes Blacking Machine Operator: Samy Blair Tasks completed by international first officer: Closing and Retracting Complications Complications: No Admit VTE Documentation VTE Present on Admission: Yes VTE Mechan Device Prophylaxis: SCD's
[2025-02-21] MEDS: Oxytocin 15 Units/NS 250ml 15 UNITS/250 ML IV.SOLN 83 UNITS IV (04:57)
[2025-02-21] MEDS: Ketorolac 30 MG/ML Syringe IV ×4 (06:17→23:49)
[2025-02-21] MEDS: Senna/Docusate Sodium 1 Tablet PO (11:19)
[2025-02-21] MEDS: Cefazolin 1 GM/50 ML BAG IV ×2 (11:20→20:00)
[2025-02-22 04:35] VITALS: BP 103/56; PULSE 72; RESP 16; TEMP 36.9; O2SAT 98
[2025-02-22 07:00] LABS: Hematocrit 26.9 % (37-47); Hemoglobin 8.7 g/dL (12.0-15.0); Mean Corp Hgb Conc 32.3 g/dL (32-36); Mean Corpuscular Volume 88.8 fL (81-99); Mean Platelet Vol. 10.8 fl (6.2-12.0); Platelet Count 228 K/mm3 (150-450); RBC Distribution Width CV 13.6 % (11.6-14.6); RBC Distribution Width SD 44.1 fl (35.1-43.9); Red Blood Count 3.03 M/mm3 (4.2-5.4); White Blood Count 16.1 K/mm3 (4.4-11.0)
[2025-02-22 08:00] VITALS: BP 95/62; PULSE 82; RESP 16; TEMP 36.5; O2SAT 98
--- NOTE | 2025-02-22 08:31 | PN.OBGYN_ITS ---
Subjective Subjective Patient doing well without complaints. Tolerating PO. Ambulating and voiding without difficulty. Feeding well. Denies chest pain, shortness of breath, calf pain/swelling, fevers, chills, lightheadedness. Objective Data Objective Data Vital Signs: Vital Signs Temp Pulse Resp BP Pulse Ox O2 Del Method O2 Flow Rate 98.5 F 72 16 103/56 L 98 Room Air 2 02/22/25 04:35 02/22/25 04:35 02/22/25 04:35 02/22/25 04:35 02/22/25 04:35 02/22/25 04:35 02/21/25 05:32 Oxygen Flow Rate (L/min) 2 Oxygen Delivery Method Room Air Weight: 189 lb 3.2 oz Body Mass Index (BMI) 35.7 Intake & Output: Intake and Output for Last 24 Hours 02/20/25 02/21/25 02/22/25 23:59 23:59 23:59 Intake Total 3000.00 / 3000.00 1252.55 / 1252.55 Output Total 4150 / 4150 Balance 3000.00 / 3000.00 -2897.45 / -2897.45 Lab / Micro Data 02/22/25 06:50 Labs: Laboratory Results - last 24 hr 02/22/25 06:50: WBC 16.1 H, RBC 3.03 L, Hgb 8.7 L, Hct 26.9 L, MCV 88.8, MCH 28.7, MCHC 32.3 D, RDW Std Deviation 44.1 H, RDW Coeff of Viktor 13.6, Plt Count 228, MPV 10.8 ROS Constitutional Constitutional: Reports systems reviewed and no addt'l complaints, except as documented; Denies anorexia or headache(s) Cardiovascular Cardiovascular: Reports systems reviewed and no addt'l complaints, except as documented; Denies dizziness, dyspnea, nausea or tachypnea Respiratory/Chest Respiratory/Chest: Reports systems reviewed and no addt'l complaints, except as documented; Denies cough, dyspnea, shortness of breath at rest or tachypnea Gastrointestinal Gastrointestinal: Reports systems reviewed and no addt'l complaints, except as documented; Denies abdominal pain, constipation or nausea Genitourinary Genitourinary: Reports systems reviewed and no addt'l complaints, except as documented; Denies burning urination, difficulty urinating, dysuria, urinary frequency or urinary incontinence Musculoskeletal Musculoskeletal: Reports systems reviewed and no addt'l complaints, except as documented Integumentary Integumentary: Reports systems reviewed and no addt'l complaints, except as documented Neurologic Neurologic: Reports systems reviewed and no addt'l complaints, except as documented; Denies abnormal speech, dizziness or headache(s) Psychiatric Psychiatric: Reports systems reviewed and no addt'l complaints, except as documented Endocrine Endocrinology: Reports systems reviewed and no addt'l complaints, except as documented Hematologic/Lymphatic Hematologic/Lymphatic: Reports systems reviewed and no addt'l complaints, except as documented Physical Exam Const alert, oriented x3 and no apparent distress Neck full ROM Resp normal respiratory effort, normal air movement and no retractions Effort and Inspection: able to speak in complete sentences and symmetric chest movement GI soft to palpation Inspection: incision intact Bladder / Kidney Exam: bladder normal to palpation Uterus Palpation: uterus fundus firm Extremity normal to inspection and full ROM Psych mental status grossly normal, thought process normal and cooperative Assessment & Plan (1) delivery delivered: COMMENT: ZI/ISABEL girl PLAN: s/p LTCS PPD # 1 1. routine post care 2. breast feeding- support given 3. rh positive 4. rubella immune (2) Category II heart rate tracing during labor and delivery: COMMENT: augmentation. membrane sweep with admission. IVF. if not improved recurrent variables to AROM with amnioinfusion (3) Back pain affecting : (4) GERD (gastroesophageal reflux disease): COMMENT: pepcid (5) Supervision of high-risk : QUALIFIERS: Trimester: second trimester Qualified Code(s): O09.92 - Supervision of high risk , unspecified, second trimester COMMENT: PRR, , MCKENZIE 02/20/25, girl Anette MARY Ramos (6) : QUALIFIERS: Weeks of gestation: 39 weeks Qualified Code(s): Z 3A.39 - 39 weeks gestation of COMMENT: GBS neg declined NIPT & Carrier testing, nl anatomy (7) Anxiety: COMMENT: no meds, no counseling, doing well overall. wellbutrin in past. (8) Major depression: QUALIFIERS: Major depression recurrence: unspecified whether recurrent Active/Remission status: remission status unspecified Qualified Code(s): F32.9 - Major depressive disorder, single episode, unspecified (9) Bipolar disorder: QUALIFIERS: Active/Remission status: remission status unspecified Qualified Code(s): F31.9 - Bipolar disorder, unspecified Charges/Coding Multi Select Codes Urinary/Genital Urinary/Genital CPT Codes: No Charge
[2025-02-22] MEDS: Senna/Docusate Sodium 1 Tablet PO (10:33)
[2025-02-22 12:00] VITALS: BP 106/69; PULSE 87; RESP 16; TEMP 36.5; O2SAT 98
--- NOTE | 2025-02-22 12:25 | CASEMGMT ---
Social Work Assessment Labor and Delivery Unit Patient Address: [address] [place] [id number] Phone number: [phone] Date of Referral: 02/21/2025 Time of Referral:?[id number] Referred By: Alfredo Burns MD Date of Intervention: 02/22/2025 Time of Intervention: 1215 Reason for Referral:?hx anx, dep, bipolar History obtained from: medical records and mother of baby (MOB) Household composition: MOB reports that currently residing in her home is herself and her significant other/father of baby (FOB), Richard. baby, Anette Covarrubias, to be added to home when ready for discharge. FOB states that his son who is a year and a half is sometimes at the home via shared parenting. MOB states that her housing is safe and secure. Patient's parent/guardian status:?ALMA reports that FOB is Richard Alvarado who was involved at . MOB and FOB have reportedly been together for about a year. Medical History: ?ALMA is a 19 year old female who is 1, para 0 - now 1 following labor and delivery of . MOB received routine care during with [facility]. ALMA presented to hospital for routine labor and delivery at 40 weeks gestation on 02/20/25. [place] baby girl, Anette Covarrubias, was born via emergency weighing 7 lbs, 7 oz with apgars of 4, 8, and 9 at , one, and five minutes of life respectively. ALMA is breast feeding baby and baby will be followed by Dr. Mckeon for pediatrics. Educational Status:? MOB states completing high school with some college courses. Financial Status: MOB states currently being employed at a [employer] and plans to take 12 weeks off, unpaid. FOB works at a company that waterproofs basements and plans to take the rest of this week off. Infant Supplies: MOB has obtained all necessary baby supplies, including: car seat, safe sleep space, clothes, diapers, and wipes. MOB reports having more than enough supplies to care for baby. Childcare/Caregiver(s):?MOB reports having help with childcare via maternal aunt and paternal grandmother. 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 Programs/Agencies Involved: MOB denies connection to any programs or agencies. MOB states attending counseling via [facility] in the past. Children Services/Legal Issues:?MOB denies any legal issues or CPS history. Behavioral Health Issues: ??Mental Health History:?MOB states having mental health diagnoses of anxiety, depression, and bipolar. MOB denies taking any medication to help manage these and, per nursing, denied wanting to start Wellbutrin again.?MOB stated attending counseling at [facility] in the past and FOB denied all mental health history. Substance Use History: MOB and FOB deny all substance use history. Family History:?MOB and FOB denied family history of both mental health and substance abuse. Drug Screens: MOB and baby were not tested for any substances during admission. MOB admits to taking prescriptions of Pepcid, Zofran, and PNV during . Family/Social Stressors:? MOB does not specifically identify concerns or stressors at this time. Support Systems: MOB reports having most support via maternal aunt and paternal grandmother. Depression/Shaken Baby/Safe Sleeping: MOB and FOB educated on signs and symptoms of baby blues and mood and anxiety disorders to be mindful of during this period. MOB states understanding of being aware of what to be mindful of during this period. MOB states that if she were to struggle with her mental health during this time, she would talk with her significant other/FOB. SW also encouraged MOB to talk with her OBGYN if she is struggling with her mental health in order to be prescribed a low dose medication to help her manage her mental health symptoms during this period, or ensure she is meeting with a mental health therapist. GUADALUPE educated MOB and FOB on shaken baby prevention and ABCs of safe sleep; both expressed understanding. ASSESSMENT:?MOB and baby admitted following labor and delivery. MOB has mental health history of anxiety, depression, and bipolar. This is MOB's first child and FOB's second child with another woman. MOB denies any legal issues or agency involvement. MOB was receptive to resources provided and discussed. Safe Plan of Care for related to substance use:? N/A PLAN:?? No other services requested or indicated. MOB and baby to be discharged when medically ready. Parents were provided literature regarding: signs and symptoms of baby blues and mood and anxiety disorders, Help Me Grow, shaken baby prevention, ABCs of safe sleep and a list of county resources that are available for them should any needs present themselves. Neda Buenrostro, CRIMPER OPERATOR, DYE JIG OPERATOR
[2025-02-22 16:00] VITALS: BP 100/51; PULSE 80; RESP 16; TEMP 36.4; O2SAT 97
[2025-02-22 20:10] VITALS: BP 110/76; PULSE 67; RESP 17; TEMP 36.8; O2SAT 97
[2025-02-23 02:39] VITALS: BP 93/48; PULSE 63; RESP 18; TEMP 36.5; O2SAT 100
--- NOTE | 2025-02-23 08:06 | PCM.PN.CNM ---
Objective Data Objective Data Vital Signs: Vital Signs Temp Pulse Resp BP Pulse Ox O2 Del Method O2 Flow Rate 97.7 F L 63 18 93/48 L 100 Room Air 2 02/23/25 02:39 02/23/25 02:39 02/23/25 02:39 02/23/25 02:39 02/23/25 02:39 02/23/25 02:39 02/21/25 05:32 Oxygen Flow Rate (L/min) 2 Oxygen Delivery Method Room Air Weight: 189 lb 3.2 oz Body Mass Index (BMI) 35.7 Intake & Output: Intake and Output for Last 24 Hours 02/21/25 02/22/25 02/23/25 23:59 23:59 23:59 Intake Total 1252.55 / 1252.55 Output Total 4150 / 4150 Balance -2897.45 / -2897.45 Lab / Micro Data 02/22/25 06:50 Physical Exam Const alert, oriented x3 and no apparent distress Neck full ROM Resp normal respiratory effort, normal air movement and no retractions Effort and Inspection: able to speak in complete sentences and symmetric chest movement GI soft to palpation Inspection: incision intact Bladder / Kidney Exam: bladder normal to palpation Uterus Palpation: uterus fundus firm Extremity normal to inspection and full ROM Skin Skin Narrative: dressing intact. marked drainage, no further Psych mental status grossly normal, thought process normal and cooperative Assessment & Plan (1) delivery delivered: COMMENT: JW/LC girl (2) Anxiety: COMMENT: no meds, no counseling, doing well overall. wellbutrin in past. PLAN: Plan s/p LTCS PPD # 2 1. routine post care 2. breast feeding- support given 3. rh positive 4. rubella immune 5. d/c home today
--- NOTE | 2025-02-23 08:07 | PCM.DC.SUM ---
Providers Date of Admission: 02/20/25 Reason For Visit: C SECTION Diagnosis Discharge Diagnosis (1) delivery delivered: Status: Acute Code(s): O82 - Encounter for delivery without indication (2) Anxiety: Status: Acute Code(s): F41.9 - Anxiety disorder, unspecified Plan s/p LTCS PPD # 2 1. routine post care 2. breast feeding- support given 3. rh positive 4. rubella immune 5. d/c home today Medications at Discharge Home Medications ondansetron 4 mg disintegrating tablet 4 mg PO Q6H PRN nausea and vomiting #30 tabs 12/01/24 Hospital Course Operations section Summary of Care Provided Hospital Course: s/p c/s for distress. normal course. stable for d/c home. Physical Exam Const alert, oriented x3 and no apparent distress Neck full ROM Resp normal respiratory effort, normal air movement and no retractions Effort and Inspection: able to speak in complete sentences and symmetric chest movement GI soft to palpation Inspection: incision intact Bladder / Kidney Exam: bladder normal to palpation Uterus Palpation: uterus fundus firm Extremity normal to inspection and full ROM Skin Skin Narrative: dressing intact. marked drainage, no further Psych mental status grossly normal, thought process normal and cooperative Weight / BMI Weight Weight: 189 lb 3.2 oz Body Mass Index (BMI) 35.7 ABG / Lab / Microbiology Data 02/22/25 06:50 D/C Instructions Discharge Diet: No restrictions Discharge Activity: May Not Drive and May Shower May resume sexual activity in: 6 weeks Weight Bearing Status: Full weight bearing Call your doctor if your incision/area has: Sudden Increased Bleeding, Increased Pain/ Swelling and Foul Smelling Discharge Call your doctor if you observe: Fever of 101 or Higher, Numbness or Tingling, Change in Color, Inability to urinate, Inability to have a bowel movement, Using more than 1 pad per hour, Shortness of breath, Dizziness, Fainting spells, Chest pain, Calf discomfort and Uncontrolled pain Remove Dressing in: 1 week DC O2, CPAP, BIPAP Needs Home O2 Discharge instructions: No Please Follow Up With: Jenny Mejia CNM When: 6 weeks , please call office to make an appointment. Congratulations on the of your baby! Meaningful Use Info Meaningful Use Meaningful Use Diagnoses (Choose all that apply): None applicable Ischemic Stroke Statin Dosing Therapy Reference: STATIN DOSE THERAPY REFERENCE: * Patients > 75 years receive moderate or high dose statin therapy. * Patients 75 years or YOUNGER should receive HIGH intensity statin dose unless contraindicated. You will be required to document reason for non-treatment if statin daily dose does not meet guidelines. HIGH DOSE STATIN THERAPY DAILY Atorvastatin > than or = to 40 mg Rosuvastatin > than or = to 20 mg Amlodipine + Atorvastatin > than or = to 2.5/40 mg Ezetimibe + Simvastatin 10/80 mg Simvastatin 80mg Discharge Plan Admission Admit Date/Time: 02/20/25 15:17 Attending Provider: Alfredo Burns Discharge Orders/Prescriptions Prescriptions: No Action ondansetron 4 mg tablet,disintegrating 4 mg PO Q6H PRN (Reason: nausea and vomiting) Qty: 30 3RF Disposition Disposition (needs filled in before D/C Order can be placed): Home, Self Care
[2025-02-23 08:30] VITALS: BP 116/74; PULSE 75; RESP 16; TEMP 36.6; O2SAT 97
[2025-02-23] MEDS: Senna/Docusate Sodium 1 Tablet PO (08:38)
--- NOTE | 2025-02-27 15:13 | NURSING ---
f/up questions asked in person at IBCLC visit on 02/26. Pt. feeling well overall. Did have mild PÉREZ this morning, but reports it is improved and due to being tired. Milk is in and feeding is going well. Encouragement and support given
== END 2025-02-23 11:45 | disposition home or self-care (01) | DRG 787 ==
LOC: WPOUT 15:32 → WP 15:32
PROVIDERS: Registered Nurse; Admitting Provider Obstetrics & Gynecology; Visit Provider Obstetrics & Gynecology
DX: O76 Abnormality in fetal heart rate and rhythm complicating labor and delivery (principal); O75.2 Pyrexia during labor, not elsewhere classified; F31.9 Bipolar disorder, unspecified; F41.9 Anxiety disorder, unspecified; Z37.0 Single live birth; O99.344 Other mental disorders complicating childbirth; O69.1XX0 Labor and delivery complicated by cord around neck, with compression, not applicable or unspecified; Z3A.39 39 weeks gestation of pregnancy; Z87.891 Personal history of nicotine dependence
CPT/HCPCS: 59025; 59050; 84112; 85025; 85027; 86780; 86850; 86900; 86901; 99221; A4216; G0378; J2405

== ENCOUNTER → 2025-04-08 | Outpatient (CLI) | payer BC, MEDICAID, SELFPAY | END | disposition home or self-care (01) | LOC: LABSPEC 10:56 | PROVIDERS: Referring Provider Advanced Practice Midwife; Visit Provider Advanced Practice Midwife | DX: Z12.4 Encounter for screening for malignant neoplasm of cervix (principal) | CPT/HCPCS: 88175; G0145 ==

== ENCOUNTER 2025-04-19 19:54 | Emergency (ER) | payer BC, MEDICAID, SELFPAY ==
[2025-04-19 19:55] VITALS: BP 108/55; PULSE 95; RESP 16; TEMP 36.6; O2SAT 100; BMI 27.8
--- OUTSIDE RECORDS SUMMARY | 2025-04-19 20:29 | XMS RPT_ITS | CCD ---
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 Supervision of high risk , unspecified, unspecified trimester; Translations: [Supervision of high risk , unspecified, unspecified trimester] Onset: 09-10-2024 Episodic Residual codes; unclassified (1 source) 34 [...] weeks gestation of ] Onset: 12-01-2024 Episodic Residual codes; unclassified (1 source) 25 [...] weeks gestation of ] Onset: 07-15-2024 Episodic Screening and history of mental health and substance abuse codes (20 sources) Personal history of nicotine dependence; Translations: [Health-related behavior finding] Onset: 03-04-2023 07-03-2024 Episodic Comment on above: Quit 1 month ago Results Test Name Value Interpretation Reference Range Facility PAP I-G w/rfx hrHPV-Aptimaon 04-10-2025 ADEQ Comment Normal . [facility] Comment on above: Order Comment: Nabeel caceres Comment: [id number] Comment: No. of containers..01 ThinPrep Vial Result Comment: Sati sfactory for evaluation. Endocervical and/or squamous metaplasticcells (endocervical component) are present. Performed By: #### L 7400.0353 ####[facility] [address] [facility] [place], [address] COMM . Normal . [facility] Comment on above: Order Comment: Nabeel caceres Comment: [id number] Comment: No. of containers..01 ThinPrep Vial Performed By: #### L 7400.0353 ####[facility] [address] [facility] [facility] [place], [address] COMMENT Comment Normal . [facility] Comment on above: Order Comment: Nabeel caceres Comment: [id number] Comment: No. of containers..01 ThinPrep Vial Result Comment: This liquid based ThinPrep(R) pap test was screened withthe use of an image guided system. Performed By: #### L 7400.0353 ####[facility] [address] [place], [address] DIAG Comment Normal . [facility] Comment on above: Order Comment: Speci men Comment: [id number] Comment: No. of containers..01 ThinPrep Vial Result Comment: NEGA TIVE FOR INTRAEPITHELIAL LESION OR MALIGNANCY. Performed By: #### L 7400.0353 ####[facility] [address] [place], [address] HPV RFLX Comment Normal . [facility] Comment on above: Order Comment: Speci men Comment: [id number] Comment: No. of containers..01 ThinPrep Vial Result Comment: The HPV DNA reflex criteria were not met with this specimenresult therefore, no HPV testing was performed.Performed at: [address] [id number] Director: Vi Flores MD, Phone: [phone] Performed By: #### L 7400.0353 ####[facility] [address] [place], [address] PAPSMR Comment Normal . [facility] Comment on above: Order Comment: Speci men Comment: [id number] Comment: No. of containers..01 ThinPrep Vial Result Comment: The Pap smear is a screening test designed to aid in thedetection of premalignant and malignant conditions of theuterine cervix. It is not a diagnostic procedure andshould not be used as the sole means of detecting cervicalcancer. Both false-positive and false-negative reports dooccur. Performed By: #### L 7400.0353 ####[facility] [address] [place], [address] PERFORM Comment Normal . [facility] Comment on above: Order Comment: Speci men Comment: [id number] Comment: No. of containers..01 ThinPrep Vial Result Comment: Radha Mckeon, Compressor Operator (ASCP) Performed By: #### L 7400.0353 ####[facility] [address] [place], [address] Sterile Supply Technician Office Visit Reporton 04-08-2025 Sterile Supply Technician Office Visit Report Normal [facility] Quantiferon TB-Gold+on 04-03 QFT MITOGEN CHRIS > 10.00 Normal . [facility] Comment on above: Performed By: #### L 3400.8000 ####[facility] [address] [place], [address] QFT NIL VALUE 0.02 IU/mL Normal . [facility] Comment on above: Performed By: #### L 3400.8000 ####[facility] [address] [place], [address] QFT TB GOLD+ Comment Normal . [facility] Comment on above: Result Comment: Artie tiFERON-TB Gold Plus is a qualitative indirect test forM tuberculosis infection (including disease) and isintended for use in conjunction with risk assessment,radiography, and other medical and diagnostic evaluations.The QuantiFERON-TB Gold Plus result is determined bysubtracting the Nil value from either TB antigen (Ag)value. The Mitogen tube serves as a control for the test. Performed By: #### L 3400.8000 ####[facility] [address] [place], [address] QFT TB POS CRIT Negative Normal Negative [facility] Comment on above: Result Comment: No r esponse to M tuberculosis antigens detected.Infection with M tuberculosis is unlikely, but high riskindividuals should be considered for additional testing(ATS/IDSA/CDC Clinical Practice Guidelines, 2017). Thereference range is an Antigen minus Nil result of <0.35IU/mL.The specimen received for QuantiFERON testing was incubatedby the ordering institution. Specific procedures outlinedin our Directory of Services and in the package insert forthe QuantiFERON Gold (In Tube) test must be followed toenable for proper stimulation of cells for the productionof interferon gamma. Chemiluminescence immunoassaymethodologyPerformed at: - [facility] [id number] Director: Gagan Nur PhD, Phone: [phone] Performed By: #### L 3400.8000 ####[facility] [address] [place], [address] QFT TB1+ AG CHRIS 0.06 IU/mL Normal . [facility] Comment on above: Performed By: #### L 3400.8000 ####[facility] [address] [place], [address] QFT TB2+ AG CHRIS 0.06 IU/mL Normal . [facility] Comment on above: Performed By: #### L 3400.8000 ####[facility] [address] [place], [address] Office Visit Reporton 2024 Office Visit Report Normal [place] Sterile Supply Technician Office Visit Reporton 03-26-2025 Sterile Supply Technician Office Visit Report Normal [facility] Urgent Care Visit Reporton 0 03-26-2025 Urgent Care Visit Report Normal [facility] Sterile Supply Technician Office Visit Reporton 03-12-2025 Sterile Supply Technician Office Visit Report Normal [facility] Sterile Supply Technician Office Visit Reporton 03-01-2025 Sterile Supply Technician Office Visit Report Normal [facility] Automated blood erythrocyte countOrdered By: Alfredo Burns on 02-22-2025 RBC (Bld) [#/Vol] 3.03 10*6/uL Low 4.2-5.4 [place] Comment on above: Order Comment: Comme nts: Day #1Reason for Laboratory Test Performed By: #### L 100.0500 ####[facility] [address] [place], [address] Automated blood hematocrit ( percentage)Ordered By: Alfredo Burns on 02-22-2025 Hematocrit (Bld) [Volume fraction] 26.9 % Low 37-47 [facility] Comment on above: Order Comment: Comme nts: Day #1Reason for Laboratory Test Performed By: #### L 100.0500 ####[facility] [address] [place], [place], [id number] CBC-Complete Blood Cnt No Di ffon 02-22-2025 RDW SD 44.1 fl High 35.1-43.9 [facility] Comment on above: Order Comment: Comme nts: Day #1Reason for Laboratory Test Performed By: #### L 100.0500 ####[facility] [address] [place], [place], [id number] Erythrocyte distribution wid th ratioOrdered By: Alfredo Burns on 02-22-2025 Erythrocyte distribution width (RBC) [Ratio] 13.6 % Normal 11.6-14.6 [facility] Comment on above: Order Comment: Comme nts: Day #1Reason for Laboratory Test Performed By: #### L 100.0500 ####[facility] [address] [place], [address] Erythrocyte distribution wid th standard deviationOrdered By: Alfredo Burns on 02-22-2025 Erythrocyte distribution width (RBC) [Ratio] 44.1 fl High 35.1-43.9 [facility] Hemoglobin measurementOrdere d By: Alfredo Burns on 02-22-2025 Hemoglobin (Bld) [Mass/Vol] 8.7 g/dL Low 12.0-15.0 [facility] Comment on above: Order Comment: Comme nts: Day #1Reason for Laboratory Test Performed By: #### L 100.0500 ####[facility] [address] [place], [place], [id number] MCV (mean corpuscular volume ) determinationOrdered By: Alfredo Burns on 02-22-2025 MCV (RBC) [Entitic vol] 88.8 fL Normal 81-99 [facility] Comment on above: Order Comment: Comme nts: Day #1Reason for Laboratory Test Performed By: #### L 100.0500 ####[facility] [address] [place], [place], [address] Mean corpuscular hemoglobin (MCH) determinationOrdered By: Alfredo Burns on 02-22-2025 MCH (RBC) [Entitic mass] 28.7 pg Normal 27.0-32.0 [facility] Comment on above: Order Comment: Comme nts: Day #1Reason for Laboratory Test Performed By: #### L 100.0500 ####[facility] [address] [place], [address] Mean corpuscular hemoglobin concentration (MCHC) determinationOrdered By: Alfredo Burns on 02-22-2025 MCHC (RBC) [Mass/Vol] 32.3 g/dL Normal 32-36 [facility] Comment on above: Delta: 34.1 on 02/20 Order Comment: Comme nts: Day #1Reason for Laboratory Test Performed By: #### L 100.0500 ####[facility] [address] [place], [place], [id number] Mean platelet volume determi nationOrdered By: Alfredo Burns on 02-22-2025 Platelet mean volume (Bld) [Entitic vol] 10.8 fL Normal 6.2-12.0 [facility] Comment on above: Order Comment: Comme nts: Day #1Reason for Laboratory Test Performed By: #### L 100.0500 ####[facility] [address] [place], [address] Platelet countOrdered By: Lauren Burns on 02-22-2025 Platelets (Bld) [#/Vol] 228 10*3/uL Normal 150-450 [facility] Comment on above: Order Comment: Comme nts: Day #1Reason for Laboratory Test Performed By: #### L 100.0500 ####[facility] [address] [place], [place], [address] White blood cell (WBC) count Ordered By: Alfredo Burns on 02-22-2025 WBC (Bld) [#/Vol] 16.1 10*3/uL High 4.4-11.0 [place] Comment on above: Order Comment: Comme nts: Day #1Reason for Laboratory Test Performed By: #### L 100.0500 ####[facility] [address] [place], [address] Operative Reporton Operative Report Normal [facility] (ROM) Rupture Of Membraneson 02-20-2025 ROM Negative Normal Negative [facility] Comment on above: Result Comment: Amni otic fluid not present indicates No Rupture of FetalMembranes at time of specimen collection. Performed By: #### L 205.1000 ####[facility] [address] [facility] [place], [address] Absolute lymphocyte countOrd ered By: Jenny Mejia on 02-20-2025 Lymphocytes Auto (Unsp spec) [#/Vol] 2.19 10*3/uL 0.83-4.51 [facility] Absolute neutrophil countOrd ered By: Jenny Mejia on 02-20-2025 Neutrophils (Bld) [#/Vol] 9.6 10*3/uL High 2.0-7.7 [facility] Automated lymphocyte count a s percentage of total leukocytesOrdered By: Jenny Mejia on 02-20-2025 Lymphocytes/100 WBC Auto (Unsp spec) 17.2 % Low 19-41 [facility] Basophil percentageOrdered B y: Jenny Mejia on 02-20-2025 Basophils/100 WBC (Bld) 0.3 % 0-1 [facility] CBC W/Diff, Automatedon Absolute Lymph 2.19 X10 3/uL Normal 0.83-4.51 [facility] Comment on above: Performed By: #### L 100.0100, BTS ####[facility] [address] [place], [address] Absolute Neut 9.6 X10 3/uL High 2.0-7.7 [facility] Comment on above: Performed By: #### L 100.0100, BTS ####[facility] [address] [place], [address] Basophils/100 WBC (Bld) 0.3 % Normal 0-1 [facility] Comment on above: Performed By: #### L 100.0100, BTS ####[facility] [address] [place], [address] Eosinophils/100 WBC (Bld) 0.6 % Normal 0-5 [facility] Comment on above: Performed By: #### L 100.0100, BTS ####[facility] [address] [place], [address] Erythrocyte distribution width (RBC) [Ratio] 13.1 % Normal 11.6-14.6 [facility] Comment on above: Performed By: #### L 100.0100, BTS ####[facility] [address] [place], [address] Hematocrit (Bld) [Volume fraction] 35.5 % Low 37-47 [facility] Comment on above: Performed By: #### L 100.0100, BTS ####[facility] [address] [place], [address] Hemoglobin (Bld) [Mass/Vol] 12.1 g/dL Normal 12.0-15.0 [facility] Comment on above: Performed By: #### L 100.0100, BTS ####[facility] [address] [place], [address] IG% 0.600 Normal 0.0-0.9 [facility] Comment on above: Result Comment: IG% - Immature Granulocytes (promyelocytes, myelocytes andmetamyelocytes) > 1% indicates that a LEFT SHIFT is Present. Performed By: #### L 100.0100, BTS ####[facility] [address] [place], [address] Lymphocytes/100 WBC (Bld) 17.2 % Low 19-41 [facility] Comment on above: Performed By: #### L 100.0100, BTS ####[facility] [address] [place], [address] MCH (RBC) [Entitic mass] 29.5 pg Normal 27.0-32.0 [facility] Comment on above: Performed By: #### L 100.0100, BTS ####[facility] [address] [place], [address] MCHC (RBC) [Mass/Vol] 34.1 g/dL Normal 32-36 [facility] Comment on above: Performed By: #### L 100.0100, BTS ####[facility] [address] [place], [address] MCV (RBC) [Entitic vol] 86.6 fL Normal 81-99 [facility] Comment on above: Performed By: #### L 100.0100, BTS ####[facility] [address] [place], [address] Monocytes/100 WBC (Bld) 6.0 % Normal 0-10 [facility] Comment on above: Performed By: #### L 100.0100, BTS ####[facility] [address] [place], [address] Neutrophils/100 WBC (Bld) 75.3 % High 47-70 [facility] Comment on above: Performed By: #### L 100.0100, BTS ####[facility] [address] [place], [address] Nucleated RBC (Bld) [#/Vol] 0 10*3/uL Normal 0-5 [facility] Comment on above: Performed By: #### L 100.0100, BTS ####[facility] [address] [place], [address] Platelet mean volume (Bld) [Entitic vol] 11.1 fL Normal 6.2-12.0 [facility] Comment on above: Performed By: #### L 100.0100, BTS ####[facility] [address] [place], [address] Platelets (Bld) [#/Vol] 286 10*3/uL Normal 150-450 [facility] Comment on above: Performed By: #### L 100.0100, BTS ####[facility] [address] [place], [address] RBC (Bld) [#/Vol] 4.10 10*6/uL Low 4.2-5.4 [place] Comment on above: Performed By: #### L 100.0100, BTS ####[facility] [address] [place], [address] RDW SD 40.7 fl Normal 35.1-43.9 [facility] Comment on above: Performed By: #### L 100.0100, BTS ####[facility] [address] [place], [address] WBC (Bld) [#/Vol] 12.7 10*3/uL High 4.4-11.0 [place] Comment on above: Performed By: #### L 100.0100, BTS ####[facility] [address] [place], [address] Eosinophil percentageOrdered By: Jenny Mejia on 02-20-2025 Eosinophils/100 WBC (Bld) 0.6 % 0-5 [facility] H AND P Exam - OB/GYNon 07-0 H&P Exam - MUSSEL OPENER Normal [facility] Immature granulocytes/100 WB C Auto (Bld)Ordered By: Jenny Mejia on 02-20-2025 Immature granulocytes/100 WBC (Bld) 0.600 % 0.0-0.9 [facility] Comment on above: IG% - Immature Granu locytes (promyelocytes, myelocytes and metamyelocytes) > 1% indicates that a LEFT SHIFT is Present. Monocyte percentageOrdered B y: Jenny Mejia on 02-20-2025 Monocytes/100 WBC (Bld) 6.0 % 0-10 [facility] Neutrophil percentageOrdered By: Jenny Mejia on 02-20-2025 Neutrophils/100 WBC (Bld) 75.3 % High 47-70 [facility] Nucleated red blood cell per centageOrdered By: Jenny Mejia on 02-20-2025 Nucleated RBC/100 WBC (Bld) [Ratio] 0 % 0-5 [facility] Syphilis Antibodieson 2024 Syphilis Abs Non-Reactive Normal Nonreactive [facility] Comment on above: Performed By: #### L 509.8002 ####[facility] [address] [place], [place], [address] Type AND Screenon 02-20-2025 Ab SCREEN GEL Negative Normal [facility] Comment on above: Order Comment: Labor Performed By: #### L 100.0100, BTS ####[facility] [address] [place], [place], [address] Laboratory - Chemistry and C hemistry - challengeOrdered By: Bernarda Weber on 02-17-2025 Glucose Ql (U) Negative [facility] Laboratory - UrinalysisOrder ed By: Bernarda Weber on 02-17-2025 Protein Ql (U) Trace [facility] Sterile Supply Technician Office Visit Reporton 02-17-2025 Sterile Supply Technician Office Visit Report Normal [facility] Sterile Supply Technician Office Visit Reporton 02-12-2025 Sterile Supply Technician Office Visit Report Normal [facility] Sterile Supply Technician Office Visit Reporton 02-05-2025 Sterile Supply Technician Office Visit Report Normal [facility] Rule out Beta Strep (Grp. B) on 01-28-2025 MONICA Group B Beta Streptococcus is not isolated. Normal [facility] Comment on above: Performed By: #### M 100.3400 ####[facility] [address] [place], [place], [address] Laboratory - Chemistry and C hemistry - challengeOrdered By: Lizet Flynn on 01-25-2025 Glucose Ql (U) Negative [facility] Laboratory - UrinalysisOrder ed By: Lizet Flynn on 01-25-2025 Protein Ql (U) Negative [facility] Sterile Supply Technician Office Visit Reporton 01-25-2025 Sterile Supply Technician Office Visit Report Normal [facility] Screening beta-hemolytic Str eptococcus cultureOrdered By: Lizet Flynn on 01-25-2025 Beta-hemolytic Streptococcus culture Group B Beta Streptococcus is not isolated. [facility] Laboratory - Chemistry and C hemistry - challengeOrdered By: Bernarda Weber on 01-14-2025 Glucose Ql (U) Negative [facility] Laboratory - UrinalysisOrder ed By: Bernarda Weber on 01-14-2025 Protein Ql (U) Negative [facility] Sterile Supply Technician Office Visit Reporton 01-14-2025 Sterile Supply Technician Office Visit Report Normal [facility] Laboratory - Chemistry and C hemistry - challengeOrdered By: Bernarda Weber on 12-28-2024 Glucose Ql (U) Negative [facility] Laboratory - UrinalysisOrder ed By: Bernarda Weber on 12-28-2024 Protein Ql (U) Negative [facility] Sterile Supply Technician Office Visit Reporton 12-28-2024 Sterile Supply Technician Office Visit Report Normal [facility] Urine Cultureon 12-23-2024 [facility] Mixed Gram Positive Organisms Jonancy Count 11,000-25,000 [facility] Mixed contaminants. Submit a new specimen if indicated. Normal [facility] Comment on above: Performed By: #### M 100.2200 ####[facility] [address] [place], [place], [address] OB Triage Progress Noteon OB Triage Progress Note Normal [facility] Anion gap in Serum or Plasma Ordered By: Bernarda Weber on 12-20-2024 Anion gap [Moles/Vol] 13 mmol/L 5-15 [facility] BUN/creatinine ratioOrdered By: Bernarda Weber on 12-20-2024 Urea nitrogen/Creatinine [Mass ratio] 12.5 mg/mg 10-20 [facility] Bilirubin Test strip Ql (U)O rdered By: Bernarda Weber on 12-20-2024 Bilirubin Ql (U) Negative Negative [facility] Bilirubin, totalOrdered By: Bernarda Weber on 12-20-2024 Bilirubin [Mass/Vol] mg/dL 0.00-1.[address] [facility] Biophysical Prof W/O Non Str eson 12-20-2024 Biophysical Prof W/O Non Stres Normal [facility] CBC-Complete Blood Cnt No Di ffon 12-20-2024 Erythrocyte distribution width (RBC) [Ratio] 12.6 % Normal 11.6-14.6 [facility] Comment on above: Performed By: #### L 205.0000, L500.4050, L300.4700, L501.2450, L501.0900, L100.0500 ####[facility] [address] [place], [address] Hematocrit (Bld) [Volume fraction] 33.5 % Low 37-47 [facility] Comment on above: Performed By: #### L 205.0000, L500.4050, L300.4700, L501.2450, L501.0900, L100.0500 ####[facility] [address] [place], [address] Hemoglobin (Bld) [Mass/Vol] 11.6 g/dL Low 12.0-15.0 [facility] Comment on above: Performed By: #### L 205.0000, L500.4050, L300.4700, L501.2450, L501.0900, L100.0500 ####[facility] [address] [place], [address] MCH (RBC) [Entitic mass] 30.2 pg Normal 27.0-32.0 [facility] Comment on above: Performed By: #### L 205.0000, L500.4050, L300.4700, L501.2450, L501.0900, L100.0500 ####[facility] [address] [place], [address] MCHC (RBC) [Mass/Vol] 34.6 g/dL Normal 32-36 [facility] Comment on above: Performed By: #### L 205.0000, L500.4050, L300.4700, L501.2450, L501.0900, L100.0500 ####[facility] [address] [place], [address] MCV (RBC) [Entitic vol] 87.2 fL Normal 81-99 [facility] Comment on above: Performed By: #### L 205.0000, L500.4050, L300.4700, L501.2450, L501.0900, L100.0500 ####[facility] [address] [place], [address] Platelet mean volume (Bld) [Entitic vol] 10.2 fL Normal 6.2-12.0 [facility] Comment on above: Performed By: #### L 205.0000, L500.4050, L300.4700, L501.2450, L501.0900, L100.0500 ####[facility] [address] [place], [address] Platelets (Bld) [#/Vol] 289 10*3/uL Normal 150-450 [facility] Comment on above: Performed By: #### L 205.0000, L500.4050, L300.4700, L501.2450, L501.0900, L100.0500 ####[facility] [address] [place], [address] RBC (Bld) [#/Vol] 3.84 10*6/uL Low 4.2-5.4 [place] Comment on above: Performed By: #### L 205.0000, L500.4050, L300.4700, L501.2450, L501.0900, L100.0500 ####[facility] [address] [place], [address] RDW SD 40.3 fl Normal 35.1-43.9 [facility] Comment on above: Performed By: #### L 205.0000, L500.4050, L300.4700, L501.2450, L501.0900, L100.0500 ####[facility] [address] [place], [address] WBC (Bld) [#/Vol] 14.6 10*3/uL High 4.4-11.0 [place] Comment on above: Performed By: #### L 205.0000, L500.4050, L300.4700, L501.2450, L501.0900, L100.0500 ####[facility] [address] [place], [address] Carbon dioxide, total [Moles /volume] in Central venous bloodOrdered By: Bernarda Weber on 12-20-2024 CO2 [Moles/Vol] 20.5 mmol/L Low 21.0-32.0 [facility] Chloride assayOrdered By: Gustavo Weber on 12-20-2024 Chloride [Moles/Vol] 101 mmol/L 98-[address] [facility] Comprehensive Metabolic Prof ilon 12-20-2024 Albumin [Mass/Vol] 3.7 g/dL Normal 3.5-5.0 [facility] Comment on above: Performed By: #### L 205.0000, L500.4050, L300.4700, L501.2450, L501.0900, L100.0500 ####[facility] [address] [place], [address] Albumin/Globulin [Mass ratio] 1.2 {ratio} Normal 0.9-2.4 [facility] Comment on above: Performed By: #### L 205.0000, L500.4050, L300.4700, L501.2450, L501.0900, L100.0500 ####[facility] [address] [place], [address] ALK PHOS 91 U/L Normal 35-104 [facility] Comment on above: Performed By: #### L 205.0000, L500.4050, L300.4700, L501.2450, L501.0900, L100.0500 ####[facility] [address] [place], [address] ALT [Catalytic activity/Vol] 14 U/L Normal <=34 [facility] Comment on above: Performed By: #### L 205.0000, L500.4050, L300.4700, L501.2450, L501.0900, L100.0500 ####[facility] [address] [place], [address] AST [Catalytic activity/Vol] 17 U/L Normal <=31 [facility] Comment on above: Performed By: #### L 205.0000, L500.4050, L300.4700, L501.2450, L501.0900, L100.0500 ####[facility] [address] [place], [address] BUN/CRE 12.5 RATIO Normal 10-20 [facility] Comment on above: Performed By: #### L 205.0000, L500.4050, L300.4700, L501.2450, L501.0900, L100.0500 ####[facility] [address] [place], [address] Calcium [Mass/Vol] 9.1 mg/dL Normal 7.6-11.0 [facility] Comment on above: Performed By: #### L 205.0000, L500.4050, L300.4700, L501.2450, L501.0900, L100.0500 ####[facility] [address] [place], [address] Chloride [Moles/Vol] 101 mmol/L Normal 98-[address] [facility] Comment on above: Performed By: #### L 205.0000, L500.4050, L300.4700, L501.2450, L501.0900, L100.0500 ####[facility] [address] [place], [address] CO2 [Moles/Vol] 20.5 mmol/L Low 21.0-32.0 [facility] Comment on above: Performed By: #### L 205.0000, L500.4050, L300.4700, L501.2450, L501.0900, L100.0500 ####[facility] [address] [place], [address] Creatinine [Mass/Vol] 0.62 mg/dL Low 0.70-1.20 [facility] Comment on above: Performed By: #### L 205.0000, L500.4050, L300.4700, L501.2450, L501.0900, L100.0500 ####[facility] [address] [place], [address] ECRCL 138.99 ml/min Normal 50-250 [facility] Comment on above: Performed By: #### L 205.0000, L500.4050, L300.4700, L501.2450, L501.0900, L100.0500 ####[facility] [address] [place], [address] GAP 13 Normal 5-15 [facility] Comment on above: Performed By: #### L 205.0000, L500.4050, L300.4700, L501.2450, L501.0900, L100.0500 ####[facility] [address] [place], [address] GFR/1.73 sq M.predicted among non-blacks MDRD (S/P/Bld) [Vol rate/Area] 130 mL/min/{1.73_m2} Normal >60 [facility] Comment on above: Result Comment: mL/m in/1.73m2 CKD-EPI Creatinine Equation (2020) Performed By: #### L 205.0000, L500.4050, L300.4700, L501.2450, L501.0900, L100.0500 ####[facility] [address] [place], [address] Globulin (S) [Mass/Vol] 3.0 g/dL Normal 2.2-4.2 [facility] Comment on above: Performed By: #### L 205.0000, L500.4050, L300.4700, L501.2450, L501.0900, L100.0500 ####[facility] [address] [place], [address] Glucose [Mass/Vol] 75 mg/dL Normal 70-99 [facility] Comment on above: Performed By: #### L 205.0000, L500.4050, L300.4700, L501.2450, L501.0900, L100.0500 ####[facility] [address] [place], [address] Potassium [Moles/Vol] 3.7 mmol/L Normal 3.3-5.1 [facility] Comment on above: Performed By: #### L 205.0000, L500.4050, L300.4700, L501.2450, L501.0900, L100.0500 ####[facility] [address] [place], [address] Sodium [Moles/Vol] 135 mmol/L Normal 133-145 [facility] Comment on above: Performed By: #### L 205.0000, L500.4050, L300.4700, L501.2450, L501.0900, L100.0500 ####[facility] [address] [place], [address] T BILI < 0.15 Normal 0.00-1.30 [facility] Comment on above: Performed By: #### L 205.0000, L500.4050, L300.4700, L501.2450, L501.0900, L100.0500 ####[facility] [address] [place], [address] T PROT 6.8 g/dL Normal 5.9-8.4 [facility] Comment on above: Performed By: #### L 205.0000, L500.4050, L300.4700, L501.2450, L501.0900, L100.0500 ####[facility] [address] [place], [address] Urea nitrogen [Mass/Vol] 8 mg/dL Normal 4-19 [facility] Comment on above: Performed By: #### L 205.0000, L500.4050, L300.4700, L501.2450, L501.0900, L100.0500 ####[facility] [address] [place], [address] Erythrocyte distribution wid th ratioOrdered By: Bernarda Weber on 12-20-2024 Erythrocyte distribution width (RBC) [Ratio] 12.6 % 11.6-14.6 [facility] Erythrocyte distribution wid th standard deviationOrdered By: Bernarda Weber on 12-20-2024 Erythrocyte distribution width (RBC) [Ratio] 40.3 fl 35.1-43.9 [facility] Fibronectinon 12-21-19 25 fFIBRONECTIN Normal [facility] Comment on above: Result Comment: Beverly blanca via OM: Ordered Performed By: #### L 205.0000, L500.4050, L300.4700, L501.2450, L501.0900, L100.0500 ####[facility] [address] [place], [place], [address] RECORD KIT LOT# Normal [facility] Comment on above: Result Comment: Beverly blanca via OM: Ordered Performed By: #### L 205.0000, L500.4050, L300.4700, L501.2450, L501.0900, L100.0500 ####[facility] [address] [place], [address] Fibrinogenon 12-20-2024 FIBRINOGEN 439 mg/dl Normal 203-444 [facility] Comment on above: Performed By: #### L 205.0000, L500.4050, L300.4700, L501.2450, L501.0900, L100.0500 ####[facility] [address] [place], [place], [address] Glomerular filtration rate ( GFR) estimation/1.73 sq m using serum, plasma, or whole bOrdered By: Bernarda Weber on 12-20-2024 GFR/1.73 sq M.predicted among non-blacks MDRD (S/P/Bld) [Vol rate/Area] 130 mL/min/{1.73_m2} >60 [facility] Comment on above: mL/min/1.73m2 CKD-EP I Creatinine Equation (2020) Hematocrit Auto (Bld) [Volum e fraction]Ordered By: Bernarda Weber on 12-20-2024 Hematocrit (Bld) [Volume fraction] 33.5 % Low 37-47 [facility] Hemoglobin measurementOrdere d By: Bernarda Weber on 12-20-2024 Hemoglobin (Bld) [Mass/Vol] 11.6 g/dL Low 12.0-15.0 [facility] Ketones Test strip Ql (U)Ord ered By: Bernarda Weber on 12-20-2024 Ketones Ql (U) Negative Negative [facility] Laboratory - Chemistry and C hemistry - challengeOrdered By: Bernarda Weber on 12-20-2024 AST [Catalytic activity/Vol] 17 U/L <32 [facility] Lipaseon 12-20-2024 Lipase [Catalytic activity/Vol] 24 U/L Normal 13-75 [facility] Comment on above: Result Comment: Jyoti salazar note:LIPASE revised reference range effective 22.New Lipase methodology. Expected to produce lower valuesthan the previous assay method.NEW Reference Range: 13 - 75 U/L Performed By: #### L 205.0000, L500.4050, L300.4700, L501.2450, L501.0900, L100.0500 ####[facility] [address] [place], [address] Lipase measurementOrdered By : Bernarda Weber on 12-20-2024 Lipase [Catalytic activity/Vol] 24 U/L 13-75 [facility] Comment on above: Please note:LIPASE r evised reference range effective 22. New Lipase methodology. Expected to produce lower values than the previous assay method. NEW Reference Range: 13 - 75 U/L MCV (mean corpuscular volume ) determinationOrdered By: Bernarda Weber on 12-20-2024 MCV (RBC) [Entitic vol] 87.2 fL 81-99 [facility] Mean corpuscular hemoglobin (MCH) determinationOrdered By: Bernarda Weber on 12-20-2024 MCH (RBC) [Entitic mass] 30.2 pg 27.0-32.0 [facility] Mean corpuscular hemoglobin concentration (MCHC) determinationOrdered By: Bernarda Weber on 12-20-2024 MCHC (RBC) [Mass/Vol] 34.6 g/dL 32-36 [facility] Mean platelet volume determi nationOrdered By: Bernarda Weber on 12-20-2024 Platelet mean volume (Bld) [Entitic vol] 10.2 fL 6.2-12.0 [facility] Nitrite Test strip Ql (U)Ord ered By: Bernarda Weber on 12-20-2024 Nitrite Ql (U) Negative Negative [facility] OB Limited With Biometricson 12-20-2024 OB Limited With Biometrics Normal [facility] Platelet countOrdered By: Gustavo Weber on 12-20-2024 Platelets (Bld) [#/Vol] 289 10*3/uL 150-450 [facility] Potassium measurement (mass/ volume)Ordered By: Bernarda Weber on 12-20-2024 Potassium (Unsp spec) [Mass/Vol] 3.7 mmol/L 3.3-5.1 [facility] Protein Test strip Ql (U)Ord ered By: Bernarda Weber on 12-20-2024 Protein Ql (U) 15 mg/dl High Negative [facility] Protein+Creatinine Ratio,Uri neon 12-20-2024 PROT:CRE RATIO 151 mg/g CRE Normal 0-200 [facility] Comment on above: Performed By: #### L 205.0000, L500.4050, L300.4700, L501.2450, L501.0900, L100.0500 ####[facility] [address] [place], [address] Protein (U) [Mass/Vol] 8.5 mg/dL Normal 0.0-12.0 [facility] Comment on above: Performed By: #### L 205.0000, L500.4050, L300.4700, L501.2450, L501.0900, L100.0500 ####[facility] [address] [place], [address] UR CREAT 56.10 mg/dL Normal 28.00-217.00 [facility] Comment on above: Performed By: #### L 205.0000, L500.4050, L300.4700, L501.2450, L501.0900, L100.0500 ####[facility] [address] [place], [address] RBC Auto (Bld) [#/Vol]Ordere d By: Bernarda Weber on 12-20-2024 RBC (Bld) [#/Vol] 3.84 10*6/uL Low 4.2-5.4 [place] Random urine creatinine james urement (mass/volume)Ordered By: Bernarda Weber on 12-20-2024 Creatinine Unsp time (U) [Mass/Vol] 56.10 mg/dL 28.00-217.00 [facility] Serum creatinine measurement (mass/volume)Ordered By: Bernarda Weber on 12-20-2024 Creatinine [Mass/Vol] 0.62 mg/dL Low 0.70-1.20 [facility] Serum globulin measurementOr dered By: Bernarda Weber on 12-20-2024 Globulin (S) [Mass/Vol] 3.0 g/dL 2.2-4.2 [facility] Serum glucose measurement (m ass/volume)Ordered By: Bernarda Weber on 12-20-2024 Glucose [Mass/Vol] 75 mg/dL 70-99 [facility] Serum or plasma alanine lentz otransferase (ALT) measurementOrdered By: Bernarda Weber on 12-20-2024 ALT [Catalytic activity/Vol] 14 U/L <35 [facility] Serum or plasma albumin james urement (mass/volume)Ordered By: Bernarda Weber on 12-20-2024 Albumin [Mass/Vol] 3.7 g/dL 3.5-5.0 [facility] Serum or plasma albumin/glob ulin mass ratioOrdered By: Bernarda Weber on 12-20-2024 Albumin/Globulin [Mass ratio] 1.2 {ratio} 0.9-2.4 [facility] Serum or plasma alkaline rudy sphatase measurementOrdered By: Bernarda Weber on 12-20-2024 ALP [Catalytic activity/Vol] 91 U/L 35-104 [facility] Serum or plasma calcium james urement (mass/volume)Ordered By: Bernarda Weber on 12-20-2024 Calcium [Mass/Vol] 9.1 mg/dL 7.6-11.0 [facility] Serum or plasma urea nitroge n measurement (mass/volume)Ordered By: Bernarda Weber on 12-20-2024 Urea nitrogen [Mass/Vol] 8 mg/dL 4-19 [facility] Sodium levelOrdered By: Tennille Weber on 12-20-2024 Sodium [Moles/Vol] 135 mmol/L 133-145 [facility] Total proteinOrdered By: Donny Weber on 12-20-2024 Protein [Mass/Vol] 6.8 g/dL 5.9-8.4 [facility] Urinalysis, Routine (Dipstic k)on 12-20-2024 BILIRUBIN URINE Negative Normal Negative [facility] Comment on above: Order Comment: CLEAN CATCH Performed By: #### L 400.2010 ####[facility] [address] [place], [address] Clarity (U) Clear Normal Clear [facility] Comment on above: Order Comment: CLEAN CATCH Performed By: #### L 400.2010 ####[facility] [address] [place], [address] Color (U) Straw Normal Yellow [facility] Comment on above: Order Comment: CLEAN CATCH Performed By: #### L 400.2010 ####[facility] [address] [place], [address] GLUCOSE, UR Normal Normal Normal [facility] Comment on above: Order Comment: CLEAN CATCH Performed By: #### L 400.2010 ####[facility] [address] [place], [address] KETONE UR Negative Normal Negative [facility] Comment on above: Order Comment: CLEAN CATCH Performed By: #### L 400.2010 ####[facility] [address] [place], [address] LEUK ESTERASE Negative Normal Negative [facility] Comment on above: Order Comment: CLEAN CATCH Performed By: #### L 400.2010 ####[facility] [address] [place], [address] Nitrite Ql (U) Negative Normal Negative [facility] Comment on above: Order Comment: CLEAN CATCH Performed By: #### L 400.2010 ####[facility] [address] [place], [address] OCCULT BLOOD-UR Negative Normal Negative [facility] Comment on above: Order Comment: CLEAN CATCH Performed By: #### L 400.2010 ####[facility] [address] [place], [address] pH UR 7.0 Normal 5.0 - 8.0 [facility] Comment on above: Order Comment: CLEAN CATCH Performed By: #### L 400.2010 ####[facility] [address] [place], [address] PROT DIPSTX 15 mg/dl Abnormal Negative [facility] Comment on above: Order Comment: CLEAN CATCH Performed By: #### L 400.2010 ####[facility] [address] [place], [address] SP.GR. DIPSTX 1.005 Normal 1.002-1.030 [facility] Comment on above: Order Comment: CLEAN CATCH Performed By: #### L 400.2010 ####[facility] [address] [place], [address] UROBILI Normal Normal Normal [facility] Comment on above: Order Comment: CLEAN CATCH Performed By: #### L 400.2010 ####[facility] [address] [place], [address] Urine clarityOrdered By: Donny Weber on 12-20-2024 Clarity (U) Clear Clear [facility] Urine color determinationOrd ered By: Bernarda Weber on 12-20-2024 Color (U) Straw Yellow [facility] Urine cultureOrdered By: Donny eWber on 12-20-2024 Bacteria identified Cx Nom (U) Positive Abnormal [facility] Urine glucose detectionOrder ed By: Bernarda Weber on 12-20-2024 Glucose Ql (U) Normal mg/dl Normal [facility] Urine leukocyte esterase det ection by dipstickOrdered By: Bernarda Weber on 12-20-2024 Leukocyte esterase Test strip Ql (U) Negative Negative [facility] Urine pHOrdered By: Bernarda gibbs on 12-20-2024 pH (U) 7.0 [pH] 5.0 - 8.0 [facility] Urine protein measurement (m ass/volume)Ordered By: Bernarda Weber on 12-20-2024 Protein (U) [Mass/Vol] 8.5 mg/dL 0.0-12.0 [facility] Urine protein/creatinine mas s ratioOrdered By: Bernarda Weber on 12-20-2024 Protein/Creatinine (U) [Mass ratio] 151 mg/g CRE 0-200 [facility] Urine specific gravity measu rementOrdered By: Bernarda Weber on 12-20-2024 Specific gravity (U) [Rel density] 1.005 1.002-1.030 [facility] Urine urobilinogen measureme ntOrdered By: Bernarda Weber on 12-20-2024 Urobilinogen Ql (U) Normal mg/dl Normal [facility] White blood cell (WBC) count Ordered By: Bernarda Weber on 12-20-2024 WBC (Bld) [#/Vol] 14.6 10*3/uL High 4.4-11.0 [place] [employer] 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 Mixed Gram Positive Organisms Jonancy Count 1000-10,000 MIXC Mixed contaminants. Submit a new specimen if indicated. Normal [facility] Comment on above: Performed By: #### M 100.2200, L400.0001 ####[facility] [address] [place], [place], [id number] AST(SGOT)on 12-01-2024 AST [Catalytic activity/Vol] 25 U/L Normal <=31 [facility] Comment on above: Result Comment: Hemo lysis present, Results??could be affected.?? Performed By: #### L 501.0900, L501.4405, L501.1400, L501.4100, L501.1105, L100.0500 ####[facility] [address] [place], [address] Alanine Aminotransferas (SGP T)on 12-01-2024 ALT [Catalytic activity/Vol] 18 U/L Normal <=34 [facility] Comment on above: Performed By: #### L 501.0900, L501.4405, L501.1400, L501.4100, L501.1105, L100.0500 ####[facility] [address] [place], [address] Bilirubin Test strip Ql (U)O rdered By: Lizet Flynn on 12-01-2024 Bilirubin Ql (U) Negative Negative [facility] CBC-Complete Blood Cnt No Di ffon 12-01-2024 Erythrocyte distribution width (RBC) [Ratio] 13.0 % Normal 11.6-14.6 [facility] Comment on above: Performed By: #### L 501.0900, L501.4405, L501.1400, L501.4100, L501.1105, L100.0500 ####[facility] [address] [place], [address] Hematocrit (Bld) [Volume fraction] 34.3 % Low 37-47 [facility] Comment on above: Performed By: #### L 501.0900, L501.4405, L501.1400, L501.4100, L501.1105, L100.0500 ####[facility] [address] [place], [address] Hemoglobin (Bld) [Mass/Vol] 11.9 g/dL Low 12.0-15.0 [facility] Comment on above: Performed By: #### L 501.0900, L501.4405, L501.1400, L501.4100, L501.1105, L100.0500 ####[facility] [address] [place], [address] MCH (RBC) [Entitic mass] 30.8 pg Normal 27.0-32.0 [facility] Comment on above: Performed By: #### L 501.0900, L501.4405, L501.1400, L501.4100, L501.1105, L100.0500 ####[facility] [address] [place], [address] MCHC (RBC) [Mass/Vol] 34.7 g/dL Normal 32-36 [facility] Comment on above: Performed By: #### L 501.0900, L501.4405, L501.1400, L501.4100, L501.1105, L100.0500 ####[facility] [address] [place], [address] MCV (RBC) [Entitic vol] 88.9 fL Normal 81-99 [facility] Comment on above: Performed By: #### L 501.0900, L501.4405, L501.1400, L501.4100, L501.1105, L100.0500 ####[facility] [address] [place], [address] Platelet mean volume (Bld) [Entitic vol] 10.1 fL Normal 6.2-12.0 [facility] Comment on above: Performed By: #### L 501.0900, L501.4405, L501.1400, L501.4100, L501.1105, L100.0500 ####[facility] [address] [place], [address] Platelets (Bld) [#/Vol] 297 10*3/uL Normal 150-450 [facility] Comment on above: Performed By: #### L 501.0900, L501.4405, L501.1400, L501.4100, L501.1105, L100.0500 ####[facility] [address] [place], [address] RBC (Bld) [#/Vol] 3.86 10*6/uL Low 4.2-5.4 [place] Comment on above: Performed By: #### L 501.0900, L501.4405, L501.1400, L501.4100, L501.1105, L100.0500 ####[facility] [address] [place], [address] RDW SD 42.5 fl Normal 35.1-43.9 [facility] Comment on above: Performed By: #### L 501.0900, L501.4405, L501.1400, L501.4100, L501.1105, L100.0500 ####[facility] [address] [place], [address] WBC (Bld) [#/Vol] 13.8 10*3/uL High 4.4-11.0 [place] Comment on above: Performed By: #### L 501.0900, L501.4405, L501.1400, L501.4100, L501.1105, L100.0500 ####[facility] [address] [place], [address] Creatinine Unsp time (U) [Ma ss/Vol]Ordered By: Lizet Flynn on 12-01-2024 Creatinine (U) [Mass/Vol] 228.00 mg/dL High 28.00-217.00 [facility] Epithelial cells.squamous LM Ql (Urine sed)Ordered By: Lizet Flynn on 12-01-2024 Epithelial cells.squamous LM.HPF (Urine sed) [#/Area] 5 /[HPF] 5-10 [facility] Erythrocyte distribution wid th (RBC) [Ratio]Ordered By: Lizet Flynn on 12-01-2024 Erythrocyte distribution width (RBC) [Entitic vol] 42.5 fL 35.1-43.9 [facility] Erythrocyte distribution wid th ratioOrdered By: Lizet Flynn on 12-01-2024 Erythrocyte distribution width (RBC) [Ratio] 13.0 % 11.6-14.6 [facility] Erythrocyte distribution wid th standard deviationOrdered By: Lizet Flynn on 12-01-2024 Erythrocyte distribution width (RBC) [Ratio] 42.5 fl 35.1-43.9 [facility] Estimation of creatinine sabino aranceOrdered By: Lizet Flynn on 12-01-2024 Estimated Creatinine Clearance Calc 157.12 ml/min 50-250 [facility] GFR/1.73 sq M.predicted shelbie g non-blacks MDRD (S/P/Bld) [Vol rate/Area]Ordered By: Lizet Flynn on 12-01-2024 Estimated GFR (MDRD) Non-Af Amer 134 >60 [facility] Comment on above: mL/min/1.73m2 CKD-EP I Creatinine Equation (2020) Glomerular filtration rate ( GFR) estimation/1.73 sq m using serum, plasma, or whole bOrdered By: Lizet Flynn on 12-01-2024 GFR/1.73 sq M.predicted among non-blacks MDRD (S/P/Bld) [Vol rate/Area] 134 mL/min/{1.73_m2} >60 [facility] Comment on above: mL/min/1.73m2 CKD-EP I Creatinine Equation (2020) Glucose Ql (U)Ordered By: Bubba Flynn on 12-01-2024 Urine Glucose (UA) Normal mg/dl Normal [facility] Hematocrit Auto (Bld) [Volum e fraction]Ordered By: Lizet Flynn on 12-01-2024 Hematocrit (Bld) [Volume fraction] 34.3 % Low 37-47 [facility] Hemoglobin measurementOrdere d By: Lizet Flynn on 12-01-2024 Hemoglobin (Bld) [Mass/Vol] 11.9 g/dL Low 12.0-15.0 [facility] Ketones Test strip Ql (U)Ord ered By: Lizet Flynn on 12-01-2024 Ketones Ql (U) Negative Negative [facility] Laboratory - Chemistry and C hemistry - challengeOrdered By: Lizet Flynn on 12-01-2024 AST [Catalytic activity/Vol] 25 U/L <32 [facility] Comment on above: Hemolysis present, R esults could be affected. MCV (mean corpuscular volume ) determinationOrdered By: Lizet Flynn on 12-01-2024 MCV (RBC) [Entitic vol] 88.9 fL 81-99 [facility] Mean corpuscular hemoglobin (MCH) determinationOrdered By: Lizet Flynn on 12-01-2024 MCH (RBC) [Entitic mass] 30.8 pg 27.0-32.0 [facility] Mean corpuscular hemoglobin concentration (MCHC) determinationOrdered By: Lizet Flynn on 12-01-2024 MCHC (RBC) [Mass/Vol] 34.7 g/dL 32-36 [facility] Mean platelet volume determi nationOrdered By: Lizet Flynn on 12-01-2024 Platelet mean volume (Bld) [Entitic vol] 10.1 fL 6.2-12.0 [facility] Microscopic analysis of urin e for red blood cells (RBC)Ordered By: Lizet Flynn on 12-01-2024 Microscopic analysis of urine for red blood cells (RBC) 0-5 SEEN /hpf 0-5 [facility] Urine RBC 0-5 SEEN /hpf 0-5 [facility] [facility] LM Ql (Urine sed)Order ed By: Lizet Flynn on 12-01-2024 Mucus Ql (Urine sed) 2+ /hpf [facility] Nitrite Test strip Ql (U)Ord ered By: Lizet Flynn on 12-01-2024 Nitrite Ql (U) Negative Negative [facility] OB Triage Physician Noteon 0 12-01-2024 OB Triage Physician Note Normal [facility] Platelet countOrdered By: Bubba Flynn on 12-01-2024 Platelets (Bld) [#/Vol] 297 10*3/uL 150-450 [facility] Protein Test strip Ql (U)Ord ered By: Lizet Flynn on 12-01-2024 Protein Ql (U) 30 mg/dl High Negative [facility] Protein+Creatinine Ratio,Uri neon 12-01-2024 PROT:CRE RATIO 141 mg/g CRE Normal 0-200 [facility] Comment on above: Performed By: #### L 501.0900, L501.4405, L501.1400, L501.4100, L501.1105, L100.0500 ####[facility] [address] [place], [address] Protein (U) [Mass/Vol] 32.1 mg/dL High 0.0-12.0 [facility] Comment on above: Performed By: #### L 501.0900, L501.4405, L501.1400, L501.4100, L501.1105, L100.0500 ####[facility] [address] [place], [address] UR CREAT 228.00 mg/dL High 28.00-217.00 [facility] Comment on above: Performed By: #### L 501.0900, L501.4405, L501.1400, L501.4100, L501.1105, L100.0500 ####[facility] [address] [place], [address] Protein/Creatinine (U) [Mass ratio]Ordered By: Lizet Flynn on 12-01-2024 Urine Protein/Creatinine Ratio 141 mg/g CRE 0-200 [facility] RBC Auto (Bld) [#/Vol]Ordere d By: Lizet Flynn on 12-01-2024 RBC (Bld) [#/Vol] 3.86 10*6/uL Low 4.2-5.4 [place] Random urine creatinine james urement (mass/volume)Ordered By: Lizet Flynn on 12-01-2024 Creatinine Unsp time (U) [Mass/Vol] 228.00 mg/dL High 28.00-217.00 [facility] Serum Creatinine AND GFRon 0 12-01-2024 Creatinine [Mass/Vol] 0.54 mg/dL Low 0.70-1.20 [facility] Comment on above: Performed By: #### L 501.0900, L501.4405, L501.1400, L501.4100, L501.1105, L100.0500 ####[facility] [address] [place], [address] ECRCL 157.12 ml/min Normal 50-250 [facility] Comment on above: Performed By: #### L 501.0900, L501.4405, L501.1400, L501.4100, L501.1105, L100.0500 ####[facility] [address] [place], [address] GFR/1.73 sq M.predicted among non-blacks MDRD (S/P/Bld) [Vol rate/Area] 134 mL/min/{1.73_m2} Normal >60 [facility] Comment on above: Result Comment: mL/m in/1.73m2 CKD-EPI Creatinine Equation (2020) Performed By: #### L 501.0900, L501.4405, L501.1400, L501.4100, L501.1105, L100.0500 ####[facility] [address] [place], [place], [id number] Serum creatinine measurement (mass/volume)Ordered By: Lizet Flynn on 12-01-2024 Creatinine [Mass/Vol] 0.54 mg/dL Low 0.70-1.20 [facility] Serum or plasma alanine lentz otransferase (ALT) measurementOrdered By: Lizet Flynn on 12-01-2024 ALT [Catalytic activity/Vol] 18 U/L <35 [facility] Serum or plasma uric acid me asurement (mass/volume)Ordered By: Lizet Flynn on 12-01-2024 Urate [Mass/Vol] 3.7 mg/dL 2.6-6.0 [facility] Comment on above: The drugs N-Acetylcy steine and Metamizole may falsely depress this assay. Squamous epithelial cells de tection in urine sediment by light microscopyOrdered By: Lizet Flynn on 12-01-2024 Epithelial cells.squamous LM Ql (Urine sed) 5-10 SEEN /hpf 5-10 [facility] Uric Acidon 12-01-2024 URIC 3.7 mg/dL Normal 2.6-6.0 [facility] Comment on above: Result Comment: The drugs N-Acetylcysteine and Metamizole may falselydepress this assay. Performed By: #### L 501.0900, L501.4405, L501.1400, L501.4100, L501.1105, L100.0500 ####[facility] [address] [place], [address] Urinalysis, Completeon 12-01 RBC 0-5 SEEN Normal 0-5 [facility] Comment on above: Order Comment: RONY CTOR TO SPECIFY Performed By: #### M 100.2200, L400.0001 ####[facility] [address] [place], [address] WBC 0-5 SEEN Normal 0-5 [facility] Comment on above: Order Comment: [facility] CTOR TO SPECIFY Performed By: #### M 100.2200, L400.0001 ####[facility] [address] [place], [address] EPI,SQUAMOUS 5-10 SEEN Normal 5-10 [facility] Comment on above: Order Comment: RONY CTOR TO SPECIFY Performed By: #### M 100.2200, L400.0001 ####[facility] [address] [place], [address] BACTERIA 1+ /hpf Normal None Seen [facility] Comment on above: Order Comment: RONY CTOR TO SPECIFY Performed By: #### M 100.2200, L400.0001 ####[facility] [address] [place], [address] Mucus Ql (Urine sed) 2+ /hpf Normal [facility] Comment on above: Order Comment: RONY CTOR TO SPECIFY Performed By: #### M 100.2200, L400.0001 ####[facility] [address] [place], [address] Urine blood detectionOrdered By: Lizet Flynn on 12-01-2024 Urine Occult Blood Negative Negative [facility] Urine clarityOrdered By: Amy Flynn on 12-01-2024 Clarity (U) Sl. Cloudy Clear [facility] Urine color determinationOrd ered By: Lizet Flynn on 12-01-2024 Color (U) Yellow Yellow [facility] Urine cultureOrdered By: Amy Flynn on 12-01-2024 Bacteria identified Cx Nom (U) Positive Abnormal [facility] Urine glucose detectionOrder ed By: Lizet Flynn on 12-01-2024 Glucose Ql (U) Normal mg/dl Normal [facility] Urine leukocyte esterase det ection by dipstickOrdered By: Lizet Flynn on 12-01-2024 Leukocyte esterase Test strip Ql (U) Negative Negative [facility] Urine pHOrdered By: Lizet Flynn on 12-01-2024 pH (U) 6.0 [pH] 5.0 - 8.0 [facility] Urine protein measurement (m ass/volume)Ordered By: Lizet Flynn on 12-01-2024 Protein (U) [Mass/Vol] 32.1 mg/dL High 0.0-12.0 [facility] Urine protein/creatinine mas s ratioOrdered By: Lizet Flynn on 12-01-2024 Protein/Creatinine (U) [Mass ratio] 141 mg/g CRE 0-200 [facility] Urine sediment bacteria coun t by microscopy (number/high power field)Ordered By: Lizet Flynn on 12-01-2024 Bacteria LM.HPF (Urine sed) [#/Area] 1 /[HPF] None Seen [facility] Urine specific gravity measu rementOrdered By: Lizet Flynn on 12-01-2024 Specific gravity (U) [Rel density] 1.020 1.002-1.030 [facility] Urine urobilinogen measureme ntOrdered By: Lizet Flynn on 12-01-2024 Urobilinogen Ql (U) Normal mg/dl Normal [facility] Urobilinogen Ql (U)Ordered B y: Lizet Flynn on 12-01-2024 Urine Urobilinogen Normal mg/dl Normal [facility] White blood cell (WBC) count Ordered By: Lizet Flynn on 12-01-2024 WBC (Bld) [#/Vol] 13.8 10*3/uL High 4.4-11.0 [place] White blood cell countOrdere d By: Lizet Flynn on 12-01-2024 Urine WBC 0-5 SEEN /hpf 0-5 [facility] White blood cell count 0-5 SEEN /hpf 0-5 [facility] Absolute lymphocyte countOrd ered By: Lizet Flynn on 11-30-2024 Lymphocytes Auto (Unsp spec) [#/Vol] 2.25 10*3/uL 0.83-4.51 [facility] Absolute neutrophil countOrd ered By: Lizet Flynn on 11-30-2024 Neutrophils (Bld) [#/Vol] 8.4 10*3/uL High 2.0-7.7 [facility] Automated lymphocyte count a s percentage of total leukocytesOrdered By: Lizet Flynn on 11-30-2024 Lymphocytes/100 WBC Auto (Unsp spec) 19.8 % 19-41 [facility] Basophil percentageOrdered B y: Lizet Flynn on 11-30-2024 Basophils/100 WBC (Bld) 0.3 % 0-1 [facility] CBC W/Diff, Automatedon 11-17 Absolute Lymph 2.25 X10 3/uL Normal 0.83-4.51 [facility] Comment on above: Performed By: #### L 100.0100, L3890.6006, L509.8002, L501.0250 ####[facility] [address] [place], [address] Absolute Neut 8.4 X10 3/uL High 2.0-7.7 [facility] Comment on above: Performed By: #### L 100.0100, L3890.6006, L509.8002, L501.0250 ####[facility] [address] [place], [address] Basophils/100 WBC (Bld) 0.3 % Normal 0-1 [facility] Comment on above: Performed By: #### L 100.0100, L3890.6006, L509.8002, L501.0250 ####[facility] [address] [place], [address] Eosinophils/100 WBC (Bld) 0.6 % Normal 0-5 [facility] Comment on above: Performed By: #### L 100.0100, L3890.6006, L509.8002, L501.0250 ####[facility] [address] [place], [address] Erythrocyte distribution width (RBC) [Ratio] 13.1 % Normal 11.6-14.6 [facility] Comment on above: Performed By: #### L 100.0100, L3890.6006, L509.8002, L501.0250 ####[facility] [address] [place], [address] Hematocrit (Bld) [Volume fraction] 35.6 % Low 37-47 [facility] Comment on above: Performed By: #### L 100.0100, L3890.6006, L509.8002, L501.0250 ####[facility] [address] [place], [address] Hemoglobin (Bld) [Mass/Vol] 11.8 g/dL Low 12.0-15.0 [facility] Comment on above: Performed By: #### L 100.0100, L3890.6006, L509.8002, L501.0250 ####[facility] [address] [place], [address] IG% 0.700 Normal 0.0-0.9 [facility] Comment on above: Result Comment: IG% - Immature Granulocytes (promyelocytes, myelocytes andmetamyelocytes) > 1% indicates that a LEFT SHIFT is Present. Performed By: #### L 100.0100, L3890.6006, L509.8002, L501.0250 ####[facility] [address] [place], [address] Lymphocytes/100 WBC (Bld) 19.8 % Normal 19-41 [facility] Comment on above: Performed By: #### L 100.0100, L3890.6006, L509.8002, L501.0250 ####[facility] [address] [place], [address] MCH (RBC) [Entitic mass] 30.3 pg Normal 27.0-32.0 [facility] Comment on above: Performed By: #### L 100.0100, L3890.6006, L509.8002, L501.0250 ####[facility] [address] [place], [address] MCHC (RBC) [Mass/Vol] 33.1 g/dL Normal 32-36 [facility] Comment on above: Performed By: #### L 100.0100, L3890.6006, L509.8002, L501.0250 ####[facility] [address] [place], [address] MCV (RBC) [Entitic vol] 91.3 fL Normal 81-99 [facility] Comment on above: Performed By: #### L 100.0100, L3890.6006, L509.8002, L501.0250 ####[facility] [address] [place], [address] Monocytes/100 WBC (Bld) 4.6 % Normal 0-10 [facility] Comment on above: Performed By: #### L 100.0100, L3890.6006, L509.8002, L501.0250 ####[facility] [address] [place], [address] Neutrophils/100 WBC (Bld) 74.0 % High 47-70 [facility] Comment on above: Performed By: #### L 100.0100, L3890.6006, L509.8002, L501.0250 ####[facility] [address] [place], [address] Nucleated RBC (Bld) [#/Vol] 0 10*3/uL Normal 0-5 [facility] Comment on above: Performed By: #### L 100.0100, L3890.6006, L509.8002, L501.0250 ####[facility] [address] [place], [address] Platelet mean volume (Bld) [Entitic vol] 10.4 fL Normal 6.2-12.0 [facility] Comment on above: Performed By: #### L 100.0100, L3890.6006, L509.8002, L501.0250 ####[facility] [address] [place], [address] Platelets (Bld) [#/Vol] 316 10*3/uL Normal 150-450 [facility] Comment on above: Performed By: #### L 100.0100, L3890.6006, L509.8002, L501.0250 ####[facility] [address] [place], [address] RBC (Bld) [#/Vol] 3.90 10*6/uL Low 4.2-5.4 [place] Comment on above: Performed By: #### L 100.0100, L3890.6006, L509.8002, L501.0250 ####[facility] [address] [place], [address] RDW SD 43.1 fl Normal 35.1-43.9 [facility] Comment on above: Performed By: #### L 100.0100, L3890.6006, L509.8002, L501.0250 ####[facility] [address] [place], [address] WBC (Bld) [#/Vol] 11.3 10*3/uL High 4.4-11.0 [place] Comment on above: Performed By: #### L 100.0100, L3890.6006, L509.8002, L501.0250 ####[facility] [address] [place], [address] Eosinophil percentageOrdered By: Lizetshana Flynn on 11-30-2024 Eosinophils/100 WBC (Bld) 0.6 % 0-5 [facility] Erythrocyte distribution wid th (RBC) [Ratio]Ordered By: Lizet Flynn on 11-30-2024 Erythrocyte distribution width (RBC) [Entitic vol] 43.1 fL 35.1-43.9 [facility] Erythrocyte distribution wid th ratioOrdered By: Lizet Rina on 11-30-2024 Erythrocyte distribution width (RBC) [Ratio] 13.1 % 11.6-14.6 [facility] Erythrocyte distribution wid th standard deviationOrdered By: Lizet Rina on 11-30-2024 Erythrocyte distribution width (RBC) [Ratio] 43.1 fl 35.1-43.9 [facility] Glucose Challenge Gest 1H 50 jessica 11-30-2024 GLU GEST 50g 1H 119 mg/dL Normal 70-140 [facility] Comment on above: Performed By: #### L 100.0100, L3890.6006, L509.8002, L501.0250 ####[facility] [address] [place], [place], [id number] Glucose measurement at 2 breanne rs post-dose gestational glucose tolerance testOrdered By: Lizet Flynn on 11-30-2024 Glucose [Mass/Vol] 119 mg/dL 70-140 [facility] HIVon 11-30-2024 HIV Non-Reactive Normal Nonreactive [facility] Comment on above: Result Comment: Non- ReactiveReactiveRepeatedly reactive samples must be confirmed according toCDC recommended confirmatory algorithms. The subresults foreither HIVAG or AHIV can be used as an aid in the selectionof the confirmation algorithm for reactive samples.Send out specimens with Reactive results to [facility] forconfirmation.Order the HIV antibody detection and differentiation:lc#[id number] Performed By: #### L 100.0100, L3890.6006, L509.8002, L501.0250 ####[facility] [address] [place], [place], [address] Hematocrit Auto (Bld) [Volum e fraction]Ordered By: Lizet Flynn on 11-30-2024 Hematocrit (Bld) [Volume fraction] 35.6 % Low 37-47 [facility] Hemoglobin measurementOrdere d By: Lizet Flynn on 11-30-2024 Hemoglobin (Bld) [Mass/Vol] 11.8 g/dL Low 12.0-15.0 [facility] Immature granulocytes/100 WB C Auto (Bld)Ordered By: Lizet Flynn on 11-30-2024 Immature granulocytes/100 WBC (Bld) 0.700 % 0.0-0.9 [facility] Comment on above: IG% - Immature Granu locytes (promyelocytes, myelocytes and metamyelocytes) > 1% indicates that a LEFT SHIFT is Present. Laboratory - Chemistry and C hemistry - challengeOrdered By: Bernarda Weber on 11-30-2024 Glucose Ql (U) Negative [facility] Laboratory - UrinalysisOrder ed By: Bernarda Weber on 11-30-2024 Protein Ql (U) Negative [facility] Lymphocytes Auto (Unsp spec) [#/Vol]Ordered By: Lizet Flynn on 11-30-2024 Lymphocytes (Bld) [#/Vol] 2.25 10*3/uL 0.83-4.51 [facility] Lymphocytes/100 WBC Auto (Un sp spec)Ordered By: Lizet Flynn on 11-30-2024 Lymphocytes/100 WBC (Bld) 19.8 % 19-41 [facility] MCV (mean corpuscular volume ) determinationOrdered By: Lizet Flynn on 11-30-2024 MCV (RBC) [Entitic vol] 91.3 fL 81-99 [facility] Mean corpuscular hemoglobin (MCH) determinationOrdered By: Lizet Flynn on 11-30-2024 MCH (RBC) [Entitic mass] 30.3 pg 27.0-32.0 [facility] Mean corpuscular hemoglobin concentration (MCHC) determinationOrdered By: Lizet Flynn on 11-30-2024 MCHC (RBC) [Mass/Vol] 33.1 g/dL 32-36 [facility] Mean platelet volume determi nationOrdered By: Lizet Flynn on 11-30-2024 Platelet mean volume (Bld) [Entitic vol] 10.4 fL 6.2-12.0 [facility] Monocyte percentageOrdered B y: Lizet Flynn on 11-30-2024 Monocytes/100 WBC (Bld) 4.6 % 0-10 [facility] Neutrophil percentageOrdered By: Lizet Flynn on 11-30-2024 Neutrophils/100 WBC (Bld) 74.0 % High 47-70 [facility] No Panel InformationOrdered By: Lizet Flynn on 11-30-2024 HIV (1&2) Antibody Non-Reactive Nonreactive [facility] Comment on above: Non-ReactiveReactive Repeatedly reactive samples must be confirmed according to CDC recommended confirmatory algorithms. The subresults for either HIVAG or AHIV can be used as an aid in the selection of the confirmation algorithm for reactive samples.Send out specimens with Reactive results to [facility] for confirmation.Order the HIV antibody detection and differentiation: #[id number] Nucleated red blood cell per centageOrdered By: Lizet Flynn on 11-30-2024 Nucleated RBC/100 WBC (Bld) [Ratio] 0 % 0-5 [facility] Sterile Supply Technician Office Visit Reporton 11-30-2024 Sterile Supply Technician Office Visit Report Normal [facility] Platelet countOrdered By: Bubba Flynn on 11-30-2024 Platelets (Bld) [#/Vol] 316 10*3/uL 150-450 [facility] RBC Auto (Bld) [#/Vol]Ordere d By: Lizet Flynn on 11-30-2024 RBC (Bld) [#/Vol] 3.90 10*6/uL Low 4.2-5.4 [place] Syphilis Antibodieson 2024 Syphilis Abs Non-Reactive Normal Nonreactive [facility] Comment on above: Performed By: #### L 100.0100, L3890.6006, L509.8002, L501.0250 ####[facility] [address] [place], [place], [id number] T. pallidum abOrdered By: Bubba Flynn on 04-14-2025 Syphilis Total Antibody Non-Reactive Nonreactiv e [facility] White blood cell (WBC) count Ordered By: Lizet Flynn on 11-30-2024 WBC (Bld) [#/Vol] 11.3 10*3/uL High 4.4-11.0 [place] Laboratory - Chemistry and C hemistry - challengeOrdered By: Bernarda Weber on 11-19-2024 Glucose Ql (U) Negative [facility] Laboratory - UrinalysisOrder ed By: Bernarda Weber on 11-19-2024 Protein Ql (U) Negative [facility] Sterile Supply Technician Office Visit Reporton 11-19-2024 Sterile Supply Technician Office Visit Report Normal [facility] Laboratory - Chemistry and C hemistry - challengeOrdered By: Lizet Flynn on 11-09-2024 Glucose Ql (U) Negative [facility] Laboratory - UrinalysisOrder ed By: Lizet Flynn on 11-09-2024 Protein Ql (U) Negative [facility] Sterile Supply Technician Office Visit Reporton 11-09-2024 Sterile Supply Technician Office Visit Report Normal [facility] ED MED ADMINISTRATION DETAIL on 10-18-2024 ED MED ADMINISTRATION DETAIL Blood And Plasma Laboratory Assistant Medication Administration Record [address] [address] [id number] 10/12/2024 Patient: ERIKA PINEDA Sex: Female : [...] Allergies verified and confirmed 5 rights. Via 06:21 10/12/2024 (NOW x1) dial-a-flow. IV patency established. IV site checked: no pain, Dylan Sergio R.N. redness, or swelling. IV flushed thoroughly [...] Dajuan Ceron R.N. Reglan IVP 10 mg 06:25 10/12 Reglan IVP 10 mg given via Site# 1. Allergies verified Given (NOW x1) and confirmed 5 rights. IV patency established. IV site checked: no 06:25 10/12/2024 pain, redness, or swelling. IV flushed thoroughly pre-medication Dylan Hill R.N. administration. IVP given by nurse. Information reviewed with Scanned patient including reason for taking this medication. Verbalizes understanding. - 06:27 Dylan Hill R.N. 1 of 2 Blood And Plasma Laboratory Assistant Medication Ordered Medication Administration Date/Time Acetaminophen 06:27 10/12 Acetaminophen (Tylenol) PO 975 mg given. Allergies Given (Tylenol) PO 975 verified and confirmed 5 rights. Information reviewed with patient 06:27 10/12/2024 mg (NOW x1) including sedative warning. Verbalizes understanding. (11/26 Dylan Hill R.N. generalized pain). - 06:30 Dylan Hill R.N. Scanned 2 of 2 Normal [facility] ED NURSES CLINICAL NOTEon ED NURSES CLINICAL NOTE Nurse Narrative Nurse Clinical [address] [address] [id number] 10/12/2024 Patient: ERIKA PINEDA Sex: Female : 2005 Age: 19y Primary Insurance: [employer] OUTPATIENT Policy Number: [id number] Group Number: [id number] Subscriber: Other Secondary Insurance: [employer] [facility] OUTPATIENT Policy Number: [id number] Group Number: [id number] Subscriber: Other Disposition: Discharge to Home Disposition [...] 90. No possible sources of infection. -- 06:02 10/12/24 MERVAT Vázquez R.N. 06:01 10/12/24. BP: 100/55 MAP: 70. HR: 111. RR: 18. O2 saturation: 95% Temperature: 100.3 F (oral). Pain level now 710. -- 06:01 10/12/24 MERVAT Vázquez R.N. Measurements: 06:01 10/12/24 Wt: 76.7 kg, Ht/Bennett: 61.0 in, BMI: 31.93 -- 06:10/12/24 MERVAT Vázquez R.N. Medications: 1 of 4 [...] understanding. -- 06:27 10/12/24 MERVAT Hill R.N. 06:27 10/12/24. Acetaminophen (Tylenol) PO 975 mg given. Allergies verified and confirmed 5 rights. Information reviewed with patient including sedative warning. Verbalizes understanding. (11/26 generaliz (more content not included)... Normal [facility] ED ORDER SHEET (CPOE ONLY)on 10-18-2024 ED ORDER SHEET (CPOE ONLY) Order Sheet Order Sheet [place] [id number] [facility] [place] [address] [id number] 10/12/2024 Patient: REIKA PINEDA Sex: Female : 2005 Age: 19y MEASUREMENTS: Wt: 76.7 kg, Ht/Bennett: 61.0 in, BMI: 31.93 ALLERGIES: No known drug allergies MEDICATION/IV/DRIP/FLUID ORDERS Order Description Priority Entered Acknowledged Completed IV NS 0.9 %1000 mL at 999 06:11 10/12/2024 06:23 mL/hr (NOW x1) George Watson D.O. 10/12/2024 Dylan Hill R.N. Reglan IVP10 mg [...] Charles Wilbur, 1 of 3 Order Sheet Jordon.ODonnie Lennon R.N. Troponin-I Stat Stat 06:11 10/12/2024 06:21 10/12/2024 06:32 10/12/2024 Dylan Saldivar Charles Wilbur, D.O. R.N. RMora EKG - ED Stat Stat 06:11 10/12/2024 06:21 10/12/2024 07:09 10/12/2024 Dylan Saldivar Brittany D.O. R.N. [place] BMP Stat Stat 06:11 10/12/2024 06:21 10/12/2024 06:32 10/12/2024 Dylan Saldivar Charles Wilbur, D.O. R.N. RMora DIAGNOSTIC STUDY ORDERS Order Description Priority Entered Acknowledged Completed Chest 2V Stat Stat 06:11 10/12/2024 06:21 06:32 George Watson D.O. 10/12/2024 10/12/2024 Dylan Leonardo R.N. R.Ruben Reason for Study: Chest Pain STAFF ORDERS Order Description Priority Entered Acknowledged Collected Completed IV Saline Lock 06:11 10/12/2024 06:21 10/12/2024 06:32 10/12/2024 Dylan Saldivar Charles Wilbur, D.O. R.N. RDonnieNDonnie Pulse Oximeter 06:11 10/12/2024 06:21 10/12/2024 06:32 10/12/2024 Dylan Saldivar Charles Wilbur, D.O. R.NDonnie R.NDonnie 2 of 3 Order Sheet [Electronically signed by George Watson D.O. (10/12/2024 07:10 EST)] 3 of 3 Normal [facility] ED PHYSICIAN CLINICAL REPORT on 10-18-2024 ED PHYSICIAN CLINICAL REPORT Narrative Physician Clinical Narrative [address] [address] [id number] 10/12/2024 Patient: ERIKA PINEDA Sex: Female : 2005 Age: 19y Primary Insurance: [employer] OUTPATIENT Policy Number: [id number] Group Number: [id number] Subscriber: Other Secondary Insurance: [employer] [facility] OUTPATIENT Policy Number: [id number] Group Number: [id number] Subscriber: Other Measurements Wt: 76.7 kg, Ht/Bennett: [...] constipation, urinary symptoms. Denies any abdominal pain, contractions/cramping. No vaginal bleeding, loss of fluid. Reports he has had normal care [facility] without any complications thus far in .). [...] She wa (more content not included)... Normal [facility] [address] [place] [address] [id number] 10/12/2024 Patient: ERIKA PINEDA Sex: Female : 2005 Age: 19y Item Facility Professional Category Description Code Code Quantity Fee Total Drugs Normal Saline 210502 1 $0.00 $0.00 1000cc (157164) Nurse/E/M EMERGENCY 313170 1 $0.00 $0.00 DEPARTMENT VISIT HIGH/URGENT SEVERITY (67582-61) Nurse/IV/IM/Infusions Hydration 042266 1 $0.00 $0.00 additional hour (55436) Nurse/IV/IM/Infusions IVP initial 289768 1 $0.00 $0.00 (18611) Grand Total $0.00 Providers Aidee Saldivar M.D. 1 of 2 [facility] Chief Complaint CHEST PAIN. Principal Diagnoses Influenza type A with upper respiratory infection. Probable costochondritis Vomiting with nausea. influenza A. ICD-10 Codes J11.1: Influenza due to unidentified influenza virus with other respiratory manifestations J06.9: Acute upper respiratory infection, unspecified R11.2: Nausea with vomiting, unspecified 2 of 2 Normal [facility] ED VISIT SUMMARYon ED VISIT SUMMARY Visit Overview Visit Overview [address] [address] [id number] 10/12/2024 Patient: ERIKA PINEDA Sex: Female : [...] 07:33 10/12/24. heart tones: (140 per eric KENDALL). VITAL SIGNS First Vitals Last Vitals Temp 06:01 10/12/24 100.3 F Temp 08:38 10/12/24 BP 06:01 [...] VOMITING WITH NAUSEA 3 of 3 Normal [facility] ED VITALS FLOW SHEETon 10-18 ED VITALS FLOW SHEET Vitals Vital Sign Flow Sheet [address] [place] [address] [id number] 10/12/2024 Patient: ERIKA PINEDA Sex: Female : [...] 100.3 F 7 2 of 2 Normal [facility] BMP with eGFRon 10-12-2024 AGE 19 years Normal [facility] Comment on above: Performed By: #### 2 89459 #### [facility],[address] [place] [address] 16167 Anion gap [Moles/Vol] 18 mmol/L Normal 10 - 20 [facility] Comment on above: Performed By: #### 2 49836 #### [facility],[address] [place] [address] 31522 BMP with eGFR Normal [facility] Comment on above: Result Comment: BASI C METABOLIC PANEL Performed By: #### 2 43514 #### [facility],[address] [place] [address] 83233 Calcium [Mass/Vol] 8.8 mg/dL Normal 8.5 - 10.1 [facility] Comment on above: Performed By: #### 2 42788 #### [facility],[address] [place] [address] 28611 Chloride [Moles/Vol] 102 mmol/L Normal 98 - 107 [facility] Comment on above: Performed By: #### 2 12592 #### [facility],[address] [place] [address] 45885 CO2 [Moles/Vol] 20.4 mmol/L Low 21.0 - 32.0 [facility] Comment on above: Performed By: #### 2 52256 #### [facility],[address] [place] [address] 84461 Creatinine [Mass/Vol] 0.62 mg/dL Normal 0.55 - 1.02 [facility] Comment on above: Performed By: #### 2 53148 #### [facility],[address] [place] [address] 13068 GFR/1.73 sq M.predicted among non-blacks MDRD (S/P/Bld) [Vol rate/Area] mL/min/{1.73_m2} Normal 60 - 999 [facility] Comment on above: Performed By: #### 2 45950 #### [facility],[address] [place] [address] 27798 Result Comment: ACCO RDING TO THE NATIONAL KIDNEY DISEASE EDUCATION PROGRAM(NKDE), A NORMAL eGFR IS A VALUE GREATER THAN OR EQUAL TO 60 ML/MIN/1.73 SQ METERS. CHRONIC KIDNEY DISEASE: <60mL/MIN/1.73 SQ METERS KIDNEY FAILURE: <15mL/MIN/1.73 SQ METERS THIS TEST SHOULD ONLY BE USED FOR PATIENTS 18 YEARS OF AGE AND OLDER. Glucose [Mass/Vol] 74 mg/dL Normal 74 - 106 [facility] Comment on above: Performed By: #### 2 77007 #### [facility],[address] [place], [place] [address] Potassium [Moles/Vol] 3.2 mmol/L Low 3.5 - 5.1 [facility] Comment on above: Performed By: #### 2 65528 #### [facility],[address] [place], [place] [address] Sodium [Moles/Vol] 137 mmol/L Normal 136 - 145 [facility] Comment on above: Performed By: #### 2 54111 #### [facility],[address] [place] [address] 80408 Urea nitrogen [Mass/Vol] 8 mg/dL Normal 7 - 18 [facility] Comment on above: Performed By: #### 2 67334 #### [facility],[address] [place] [address] 40105 CBC + DIFFon 10-12-2024 Baso # 0.03 x10EE3/UL Normal 0.00 - 0.10 [facility] Comment on above: Performed By: #### 2 60200 #### [facility],[address] [place] [address] 10012 Basophils/100 WBC (Bld) 0.3 % Normal 0.0 - 2.0 [facility] Comment on above: Performed By: #### 2 38537 #### [facility],[address] [place] [address] 89067 CBC + DIFF Normal [facility] Comment on above: Result Comment: CBC- COMPLETE BLOOD COUNT Performed By: #### 2 47230 #### [facility],[address] [place] [address] 96603 EO # 0.03 x10EE3/UL Normal 0.00 - 0.50 [facility] Comment on above: Performed By: #### 2 54007 #### [facility],[address] [place] [address] 82009 Eosinophils/100 WBC (Bld) 0.4 % Normal 0.0 - 7.0 [facility] Comment on above: Performed By: #### 2 45699 #### [facility],[address] [place], [place] [address] Erythrocyte distribution width (RBC) [Ratio] 13.3 % Normal 12.0 - 15.6 [facility] Comment on above: Performed By: #### 2 91628 #### [facility],[address] [place] [address] 84995 Hematocrit (Bld) [Volume fraction] 36.0 % Normal 34.0 - 46.0 [facility] Comment on above: Performed By: #### 2 24404 #### [facility],[address] [place] [address] 69745 Hemoglobin (Bld) [Mass/Vol] 12.4 g/dL Normal 12.0 - 16.0 [facility] Comment on above: Performed By: #### 2 51750 #### [facility],[address] [place] [address] 94967 Lymph # 1.07 x10EE3/UL Normal 0.80 - 2.80 [facility] Comment on above: Performed By: #### 2 75102 #### [facility],[address] [place] [address] 54437 Lymphocytes/100 WBC (Bld) 12.5 % Low 20.0 - 45.0 [facility] Comment on above: Performed By: #### 2 61750 #### [facility],[address] [place] [address] 78585 MANUAL DIFF N/A Normal [facility] Comment on above: Performed By: #### 2 79395 #### [facility],[address] [place] [address] MCH (RBC) [Entitic mass] 30 pg Normal 27 - 33 [facility] Comment on above: Performed By: #### 2 28613 #### [facility],[address] [place] [address] MCHC 34 X10 3 Normal 32 - 36 [facility] Comment on above: Performed By: #### 2 57234 #### [facility],[address] [place] [address] MCV (RBC) [Entitic vol] 88 fL Normal 80 - 99 [facility] Comment on above: Performed By: #### 2 89363 #### [facility],[address] [place] [address] [place] # 0.48 x10EE3/UL Normal 0.20 - 1.00 [facility] Comment on above: Performed By: #### 2 95179 #### [facility],[address] [place] [address] MONOS % 5.6 % Normal 0.0 - 10.0 [facility] Comment on above: Performed By: #### 2 72881 #### [facility],[address] [place], [place] [address] Morphology Juvencio (Bld) [Interp] N/A Normal [facility] Comment on above: Performed By: #### 2 08222 #### [facility],[address] [place], [place] [address] Neut # 6.95 x10EE3/UL Normal 1.50 - 7.10 [facility] Comment on above: Performed By: #### 2 23036 #### [facility],[address] [place] [address] 48944 Neutrophils/100 WBC (Bld) 81.3 % High 46.0 - 76.0 [facility] Comment on above: Performed By: #### 2 06303 #### [facility],[address] [place] [address] 57161 PLATELET 313 x10EE3/UL Normal 150 - 450 [facility] Comment on above: Performed By: #### 2 42147 #### [facility],[address] [place] [address] 92683 Platelet mean volume (Bld) [Entitic vol] 8.1 fL Normal 6.6 - 10.5 [facility] Comment on above: Result Comment: AUTO MATED DIFFERENTIAL Performed By: #### 2 33063 #### [facility],[address] [place] [address] 27963 RBC 4.07 x 10EE6/UL Low 4.10 - 5.30 [facility] Comment on above: Performed By: #### 2 25736 #### [facility],[address] [place] [address] 26765 WBC 8.6 x 10EE3/UL Normal 4.5 - 10.8 [facility] Comment on above: Performed By: #### 2 32897 #### [facility],[address] [place] [address] 22056 CHEST 2 VIEWSon 10-12-2024 CHEST 2 VIEWS [place] [address] Patient: ERIKA PINEDA Phone#: : 2005 Age: 19 Gender: F Pt. Type: ER Account: [id number] Location: [facility] Ordering: DR. ALEX WATSON Exam Date: 10/12/2024/6:28 Family Phys: Charge Code: 043222 Physician: [place] Order #: [id number] Dose#: PROCEDURE: X-RAY CHEST 2 VIEWS COMPARISON: [...] Gutierrez MD on 10/12/2024 at 13:04 Normal [facility] TROPONINon 10-12-2024 HS TROPONIN <4.0 Normal 0.0 - 51.4 [facility] Comment on above: Performed By: #### 2 96017 #### [facility],[address] [place] [address] CNOVon 10-11-2024 [facility] Office Visit (UCTR ) -------- ERIKA PINEDA ([id number]) [birth year] Date Time Provider Department 10/11/24 11:00 AM [facility] During your visit today, we recorded the following information about you: Temperature Pulse Respiration Blood pressure 99.6 degrees 107/minute 20/minute 116/68 Weight 75.7 kg Iker Morrow APRN.CNP 10/11/2024 11:45 AM Signed CC: Patient presents [...] Patient agreeable to treatment plan. Iker Morrow APRN.LUMBER DRIVER Referring Provider: SELF [[id number]] Allergies As of Date: 10/11/2024 (No Known Allergies) Date Reviewed: 10/11/2024 Reviewed by: Lashell Lockhart MA - Fully Assessed Reason for Visit: Shortness of Breath [227] Cmt: Cough, chest congestion, low fever x last night Primary Visit Diagnosis:Sore throat [J02.9] Other Visit Diagnosis:URI, acute [J06.9] Order(s):STREP A MOLECULAR (POC) [2767056] Order #: [id number]. #:[id number] 596-LAB INFLUENZA AANDB MOLECULAR (POC) [6223394] Order #: [id number] COVID AND INFLUENZA A/B AND RSV PCR, ROUTINE [SQCVFLRS] Order #: [id number]. #:[id number] oseltamivir (TAMIFLU) 75 mg capsuleTake 1 capsule by mouth two times a day for 5 days.Disp: 10 capsuleRfl: 0 Prescriptions as of 10/11/2024 - vit no.124/iron/folic ( VITAMIN ORAL) Take by mouth. (more content not included)... Normal [facility] STREP A MOLECULAR (POC)on Procedural Control Valid [facility] Strep A (POCT) Negative Negative [facility] Sterile Supply Technician Office Visit Reporton 10-08-2024 Sterile Supply Technician Office Visit Report Normal [facility] Laboratory - Chemistry and C hemistry - challengeon 09-11-2024 Glucose Ql (U) Negative [facility] Laboratory - Urinalysison Protein Ql (U) Negative [facility] Sterile Supply Technician Office Visit Reporton 09-11-2024 Sterile Supply Technician Office Visit Report Normal [facility] Laboratory - Chemistry and C hemistry - challengeon 08-24-2024 Glucose Ql (U) Negative [facility] Laboratory - Urinalysison Protein Ql (U) Negative [facility] Sterile Supply Technician Office Visit Reporton 08-24-2024 Sterile Supply Technician Office Visit Report Normal [facility] Emergency Department Summary on 2024 Emergency Department Summary Normal [facility] Absolute neutrophil countOrd ered By: Bernarda Weber on 08-13-2024 Neutrophils (Bld) [#/Vol] 6.6 10*3/uL 2.0-7.7 [facility] Basophil percentageOrdered B y: Bernarda Weber on 08-13-2024 Basophils/100 WBC (Bld) 0.4 % 0-1 [facility] CBC W/Diff, Automatedon 07-20 Absolute Lymph 3.20 X10 3/uL Normal 0.83-4.51 [facility] Comment on above: Performed By: #### L 100.0100, L509.4005, L3890.6100, L3890.6300, BTS, L509.8000, L3890.6005 ####[facility] [address] [place], [address] Absolute Neut 6.6 X10 3/uL Normal 2.0-7.7 [facility] Comment on above: Performed By: #### L 100.0100, L509.4005, L3890.6100, L3890.6300, BTS, L509.8000, L3890.6005 ####[facility] [address] [place], [address] Basophils/100 WBC (Bld) 0.4 % Normal 0-1 [facility] Comment on above: Performed By: #### L 100.0100, L509.4005, L3890.6100, L3890.6300, BTS, L509.8000, L3890.6005 ####[facility] [address] [place], [address] Eosinophils/100 WBC (Bld) 0.5 % Normal 0-5 [facility] Comment on above: Performed By: #### L 100.0100, L509.4005, L3890.6100, L3890.6300, BTS, L509.8000, L3890.6005 ####[facility] [address] [place], [address] Erythrocyte distribution width (RBC) [Ratio] 12.9 % Normal 11.6-14.6 [facility] Comment on above: Performed By: #### L 100.0100, L509.4005, L3890.6100, L3890.6300, BTS, L509.8000, L3890.6005 ####[facility] [address] [place], [address] Hematocrit (Bld) [Volume fraction] 38.0 % Normal 37-47 [facility] Comment on above: Performed By: #### L 100.0100, L509.4005, L3890.6100, L3890.6300, BTS, L509.8000, L3890.6005 ####[facility] [address] [place], [address] Hemoglobin (Bld) [Mass/Vol] 12.7 g/dL Normal 12.0-15.0 [facility] Comment on above: Performed By: #### L 100.0100, L509.4005, L3890.6100, L3890.6300, BTS, L509.8000, L3890.6005 ####[facility] [address] [place], [address] IG% 0.400 Normal 0.0-0.9 [facility] Comment on above: Result Comment: IG% - Immature Granulocytes (promyelocytes, myelocytes andmetamyelocytes) > 1% indicates that a LEFT SHIFT is Present. Performed By: #### L 100.0100, L509.4005, L3890.6100, L3890.6300, BTS, L509.8000, L3890.6005 ####[facility] [address] [place], [address] Lymphocytes/100 WBC (Bld) 30.4 % Normal 19-41 [facility] Comment on above: Performed By: #### L 100.0100, L509.4005, L3890.6100, L3890.6300, BTS, L509.8000, L3890.6005 ####[facility] [address] [place], [address] MCH (RBC) [Entitic mass] 30.0 pg Normal 27.0-32.0 [facility] Comment on above: Performed By: #### L 100.0100, L509.4005, L3890.6100, L3890.6300, BTS, L509.8000, L3890.6005 ####[facility] [address] [place], [address] MCHC (RBC) [Mass/Vol] 33.4 g/dL Normal 32-36 [facility] Comment on above: Performed By: #### L 100.0100, L509.4005, L3890.6100, L3890.6300, BTS, L509.8000, L3890.6005 ####[facility] [address] [place], [address] MCV (RBC) [Entitic vol] 89.6 fL Normal 81-99 [facility] Comment on above: Performed By: #### L 100.0100, L509.4005, L3890.6100, L3890.6300, BTS, L509.8000, L3890.6005 ####[facility] [address] [place], [address] Monocytes/100 WBC (Bld) 5.1 % Normal 0-10 [facility] Comment on above: Performed By: #### L 100.0100, L509.4005, L3890.6100, L3890.6300, BTS, L509.8000, L3890.6005 ####[facility] [address] [place], [address] Neutrophils/100 WBC (Bld) 63.2 % Normal 47-70 [facility] Comment on above: Performed By: #### L 100.0100, L509.4005, L3890.6100, L3890.6300, BTS, L509.8000, L3890.6005 ####[facility] [address] [place], [address] Nucleated RBC (Bld) [#/Vol] 0 10*3/uL Normal 0-5 [facility] Comment on above: Performed By: #### L 100.0100, L509.4005, L3890.6100, L3890.6300, BTS, L509.8000, L3890.6005 ####[facility] [address] [place], [address] Platelet mean volume (Bld) [Entitic vol] 10.5 fL Normal 6.2-12.0 [facility] Comment on above: Performed By: #### L 100.0100, L509.4005, L3890.6100, L3890.6300, BTS, L509.8000, L3890.6005 ####[facility] [address] [place], [address] Platelets (Bld) [#/Vol] 340 10*3/uL Normal 150-450 [facility] Comment on above: Performed By: #### L 100.0100, L509.4005, L3890.6100, L3890.6300, BTS, L509.8000, L3890.6005 ####[facility] [address] [place], [address] RBC (Bld) [#/Vol] 4.24 10*6/uL Normal 4.2-5.4 [place] Comment on above: Performed By: #### L 100.0100, L509.4005, L3890.6100, L3890.6300, BTS, L509.8000, L3890.6005 ####[facility] [address] [place], [address] RDW SD 42.4 fl Normal 35.1-43.9 [facility] Comment on above: Performed By: #### L 100.0100, L509.4005, L3890.6100, L3890.6300, BTS, L509.8000, L3890.6005 ####[facility] [address] [place], [address] WBC (Bld) [#/Vol] 10.5 10*3/uL Normal 4.4-11.0 [place] Comment on above: Performed By: #### L 100.0100, L509.4005, L3890.6100, L3890.6300, BTS, L509.8000, L3890.6005 ####[facility] [address] [place], [address] Eosinophil percentageOrdered By: Bernarda Weber on 08-13-2024 Eosinophils/100 WBC (Bld) 0.5 % 0-5 [facility] Erythrocyte distribution wid th (RBC) [Ratio]Ordered By: Bernarda Weber on 08-13-2024 Erythrocyte distribution width (RBC) [Entitic vol] 42.4 fL 35.1-43.9 [facility] Erythrocyte distribution wid th ratioOrdered By: Bernarda Weber on 08-13-2024 Erythrocyte distribution width (RBC) [Ratio] 12.9 % 11.6-14.6 [facility] HIV - WCHon 08-13-2024 HIV Non-Reactive Normal Nonreactive [facility] Comment on above: Order Comment: Reaso n for Exam: Performed By: #### L 100.0100, L509.4005, L3890.6100, L3890.6300, BTS, L509.8000, L3890.6005 ####[facility] [address] [place], [address] HIV 1+2 Ab+HIV1 p24 Ag IA Ql Ordered By: Bernarda Weber on 08-13-2024 HIV (1&2) Antibody Non-Reactive Nonreactive [facility] Hematocrit Auto (Bld) [Volum e fraction]Ordered By: Bernarda Weber on 08-13-2024 Hematocrit (Bld) [Volume fraction] 38.0 % 37-47 [facility] Hemoglobin measurementOrdere d By: Bernarda Weber on 08-13-2024 Hemoglobin (Bld) [Mass/Vol] 12.7 g/dL 12.0-15.0 [facility] Hepatitis B Surface Antigeno n 08-13-2024 HEP B Surf Ag Non-Reactive [facility] Comment on above: Order Comment: Reaso n for Exam: Performed By: #### L 100.0100, L509.4005, L3890.6100, L3890.6300, BTS, L509.8000, L3890.6005 ####[facility] [address] [place], [address] Hepatitis B surface antigen detectionOrdered By: Bernarda Weber on 08-13-2024 Hepatitis B Surface Antigen Non-Reactive Nonreactive [facility] Hepatitis C Antibodyon 08-13 Hepatitis C AB Non-Reactive Normal [facility] Comment on above: Order Comment: Reaso n for Exam: Result Comment: Non Reactive: < 0.8 Equivocal: >/= 0.8 to < 1.0 Reactive: >/= 1.0The [facility] requires that a reactive/equivocal HCV antibodyresult be sent out for confirmation. HCV Quant by PCRtesting. Performed By: #### L 100.0100, L509.4005, L3890.6100, L3890.6300, BTS, L509.8000, L3890.6005 ####[facility] [address] [place], [place], [id number] Hepatitis C virus antibody a ssayOrdered By: Bernarda Weber on 08-13-2024 Hepatitis C Antibody Non-Reactive Nonreactive [facility] Comment on above: Non Reactive: < 0.8 Equivocal: >/= 0.8 to < 1.0 Reactive: >/= 1.0The [facility] requires that a reactive/equivocal HCV antibody result be sent out for confirmation. HCV Quant by PCR testing. Immature granulocytes/100 WB C Auto (Bld)Ordered By: Bernarda Weber on 08-13-2024 Immature granulocytes/100 WBC (Bld) 0.400 % 0.0-0.9 [facility] Comment on above: IG% - Immature Granu locytes (promyelocytes, myelocytes and metamyelocytes) > 1% indicates that a LEFT SHIFT is Present. L509.8000on 08-13-2024 Syphilis Abs Non-Reactive Normal [facility] Comment on above: Order Comment: Reaso n for Exam: Performed By: #### L 100.0100, L509.4005, L3890.6100, L3890.6300, BTS, L509.8000, L3890.6005 ####[facility] [address] [place], [place], [id number] Laboratory - Chemistry and C hemistry - challengeon 08-13-2024 Glucose Ql (U) Negative [facility] Laboratory - Urinalysison Protein Ql (U) Negative [facility] Lymphocytes Auto (Unsp spec) [#/Vol]Ordered By: Bernarda Weber on 08-13-2024 Lymphocytes (Bld) [#/Vol] 3.20 10*3/uL 0.83-4.51 [facility] Lymphocytes/100 WBC Auto (Un sp spec)Ordered By: Bernarda Weber on 08-13-2024 Lymphocytes/100 WBC (Bld) 30.4 % 19-41 [facility] MCV (mean corpuscular volume ) determinationOrdered By: Bernarda Weber on 08-13-2024 MCV (RBC) [Entitic vol] 89.6 fL 81-99 [facility] Mean corpuscular hemoglobin (MCH) determinationOrdered By: Bernarda Weber on 08-13-2024 MCH (RBC) [Entitic mass] 30.0 pg 27.0-32.0 [facility] Mean corpuscular hemoglobin concentration (MCHC) determinationOrdered By: Bernarda Weber on 08-13-2024 MCHC (RBC) [Mass/Vol] 33.4 g/dL 32-36 [facility] Mean platelet volume determi nationOrdered By: Bernarda Weber on 08-13-2024 Platelet mean volume (Bld) [Entitic vol] 10.5 fL 6.2-12.0 [facility] Monocyte percentageOrdered B y: Bernarda Weber on 08-13-2024 Monocytes/100 WBC (Bld) 5.1 % 0-10 [facility] Neutrophil percentageOrdered By: Bernarda Weber on 08-13-2024 Neutrophils/100 WBC (Bld) 63.2 % 47-70 [facility] Nucleated red blood cell per centageOrdered By: Bernarda Weber on 08-13-2024 Nucleated RBC/100 WBC (Bld) [Ratio] 0 % 0-5 [facility] Sterile Supply Technician Office Visit Reporton 08-13-2024 Sterile Supply Technician Office Visit Report Normal [facility] Platelet countOrdered By: Gustavo Weber on 08-13-2024 Platelets (Bld) [#/Vol] 340 10*3/uL 150-450 [facility] RBC Auto (Bld) [#/Vol]Ordere d By: Bernarda Weber on 08-13-2024 RBC (Bld) [#/Vol] 4.24 10*6/uL 4.2-5.4 [place] Rubella IgGon 08-13-2024 Rubella IgG Reactive Normal Nonreactive [facility] Comment on above: Order Comment: Reaso n for Exam: Result Comment: Anti body Results Interpretation of Immune Status Non Reactive Presumed Non-Immune Equivocal Equivocal Reactive Presumed Immune Performed By: #### L 100.0100, L509.4005, L3890.6100, L3890.6300, BTS, L509.8000, L3890.6005 ####[facility] [address] [place], [place], [id number] Rubella immune status IgGOrd ered By: Bernarda Weber on 08-13-2024 Rubella IgG Antibody Reactive Nonreactive [facility] Comment on above: Antibody Results Int erpretation of Immune Status Non Reactive Presumed Non-Immune Equivocal Equivocal Reactive Presumed Immune Treponema sp Ab Ql (S)Ordere d By: Bernarda Weber on 08-13-2024 Syphilis Total Antibody Non-Reactive [facility] Type AND Screenon 08-13-2024 ABO and Rh group Nom (Bld) Blood group O Rh(D) positive Normal [facility] Comment on above: Order Comment: PN Performed By: #### L 100.0100, L509.4005, L3890.6100, L3890.6300, BTS, L509.8000, L3890.6005 ####[facility] [address] [place], [place], [id number] White blood cell (WBC) count Ordered By: Bernarda Weber on 08-13-2024 WBC (Bld) [#/Vol] 10.5 10*3/uL 4.4-11.0 [place] Chlamydia/GC PAULA aptimaon CHLAMY,NUC ACID Negative Normal Negative [facility] Comment on above: Performed By: #### M 100.2200, L7000.1800 ####[facility] [address] [place], [place], [phone] GC BY NUC ACID Negative Normal Negative [facility] Comment on above: Result Comment: Perf ormed at: =G - [facility] [address] [place] [id number] Director: Vi Flores MD, Phone: [phone] Performed By: #### M 1002200, L7000.1800 ####[facility] [address] [place], [place], [address] Urine Cultureon 07-17-2024 URC Below infection leve l. Mixed Gram Positive Organisms Jonancy Count 1000-10,000 MIXC Mixed contaminants. Submit a new specimen if indicated. Normal [facility] Comment on above: Performed By: #### M 100.2200, L7000.1800 ####[facility] [address] [place], [place], [address] Sterile Supply Technician Office Visit Reporton 07-15-2024 Sterile Supply Technician Office Visit Report Normal [facility] DHEA Sulfateon 05-03-2024 DHEA SULFATE 446.0 ug/dL High 110.0-431.7 [facility] Comment on above: Order Comment: N Performed By: #### L 3400.4800, L3890.6300, L3300.6900, L3400.1610, L506.0400, L3100.5400, L3300.1500, L501.9520, L3890.6005, L509.8000 ####[facility] [address] [place], [place], [phone] HSV 1 AND 2 IgGon 05-03-2024 HSV 1 IgG < 0.91 Normal 0.00-0.90 [facility] Comment on above: Order Comment: N Result Comment: Nega tive <0.91 Equivocal 0.91 - 1.09 Positive >1.09 Note: Negative indicates no antibodies detected to HSV-1. Equivocal may suggest early infection. If clinically appropriate, retest at later date. Positive indicates antibodies detected to HSV-1. Effective May 25, 2024 the reference interval will be changing to: Non Reactive. Performed By: #### L 3400.4800, L3890.6300, L3300.6900, L3400.1610, L506.0400, L3100.5400, L3300.1500, L501.9520, L3890.6005, L509.8000 ####[facility] [address] [place], [address] HSV 2 IgG < 0.91 Normal 0.00-0.90 [facility] Comment on above: Order Comment: [...] changing to: Non Reactive. Performed By: #### L 3400.4800, L3890.6300, L3300.6900, L3400.1610, L506.0400, L3100.5400, L3300.1500, L501.9520, L3890.6005, L509.8000 ####[facility] [address] [place], [address] PROLACTIN 4465on 05-03-2024 PROLACTIN 8.0 ng/mL Normal 4.8-33.4 [facility] Comment on above: Order Comment: N Performed By: #### L 3400.4800, L3890.6300, L3300.6900, L3400.1610, L506.0400, L3100.5400, L3300.1500, L501.9520, L3890.6005, L509.8000 ####[facility] [address] [place], [address] Testosterone Freeon 05-03-20 24 TESTOSTER FREE 2.6 pg/mL Normal 0.0-4.2 [facility] Comment on above: Order Comment: N Performed By: #### L 3400.4800, L3890.6300, L3300.6900, L3400.1610, L506.0400, L3100.5400, L3300.1500, L501.9520, L3890.6005, L509.8000 ####[facility] [address] [place], [place], [phone] Thyroid Peroxidase ABon 04-19 THYR PEROX AB 16 IU/mL Normal 0-34 [facility] Comment on above: Order Comment: N Result Comment: Perf ormed at: - [facility] [address] [id number] Director: Gagan Nur PhD, Phone: [phone] at: - [facility] [address] [id number] Director: Luan Hoyt MD, Phone: [phone] Performed By: #### L 3400.4800, L3890.6300, L3300.6900, L3400.1610, L506.0400, L3100.5400, L3300.1500, L501.9520, L3890.6005, L509.8000 ####[facility] [address] [place], [place], [phone] HIV - WCHon 04-27-2024 HIV Non-Reactive Normal Nonreactive [facility] Comment on above: Order Comment: Reaso n for Exam: std exposure Performed By: #### L 3400.4800, L3890.6300, L3300.6900, L3400.1610, L506.0400, L3100.5400, L3300.1500, L501.9520, L3890.6005, L509.8000 ####[facility] [address] [place], [place], [phone] Hepatitis C Antibodyon 04-27 Hepatitis C AB Non-Reactive Normal Nonreactive [facility] Comment on above: Order Comment: Reaso n for Exam: std exposure Result Comment: Non Reactive: < 0.8 Equivocal: >/= 0.8 to < 1.0 Reactive: >/= 1.0The [facility] requires that a reactive/equivocal HCV antibodyresult be sent out for confirmation. HCV Quant by PCRtesting. Performed By: #### L 3400.4800, L3890.6300, L3300.6900, L3400.1610, L506.0400, L3100.5400, L3300.1500, L501.9520, L3890.6005, L509.8000 ####[facility] [address] [place], [address] L509.8000on 04-27-2024 Syphilis Abs Non-Reactive Normal [facility] Comment on above: Order Comment: Reaso n for Exam: std exposure Performed By: #### L 3400.4800, L3890.6300, L3300.6900, L3400.1610, L506.0400, L3100.5400, L3300.1500, L501.9520, L3890.6005, L509.8000 ####[facility] [address] [facility] [place], [address] M8200.2203on 04-27-2024 M8200.2203 Pending Chlamydia Trachomatis PCR NEGATIVE for Chlamydia trachomatis N. gonorrhoeae PCR Negative for N. gonorrhoeae Normal [facility] Comment on above: Performed By: #### M 8200.2203 ####[facility] [address] [facility] [place], [address] Sterile Supply Technician Office Visit Reporton 04-27-2024 Sterile Supply Technician Office Visit Report Normal [facility] T4 Free Directon 04-27-2024 T4 FREE DIRECT 1.03 ng/dL Normal 0.76-1.46 [facility] Comment on above: Performed By: #### L 3400.4800, L3890.6300, L3300.6900, L3400.1610, L506.0400, L3100.5400, L3300.1500, L501.9520, L3890.6005, L509.8000 ####[facility] [address] [place], [place], [phone] Thyroid Stim Hormone (TSH)on 04-27-2024 TSH 1.170 uIU/mL Normal 0.358-3.740 [facility] Comment on above: Performed By: #### L 3400.4800, L3890.6300, L3300.6900, L3400.1610, L506.0400, L3100.5400, L3300.1500, L501.9520, L3890.6005, L509.8000 ####[facility] [address] [place], [place], [phone] ACUTE TOXICOLOGY PANEL, BLOO Don 09-21-2023 Acetaminophen [Mass/Vol] ug/mL Normal 10.0-30.0 [facility] Comment on above: Performed By: #### Jordon RUBL #### SOWMYA LAWSON ([id number]) [facility] ([facility]) [facility] [place] [address] Ethanol [Mass/Vol] mg/dL Normal <=10 [facility] Comment on above: Performed By: #### Jordon RUBL #### SOWMYA LAWSON ([id number]) [facility] ([facility]) [facility] [place] [address] Salicylates [Mass/Vol] mg/dL Normal 4-20 [facility] Comment on above: Performed By: #### D RUBL #### SOWMYA LAWSON ([id number]) [facility] ([facility]) [address] [place] [address] Acute Toxicology Panel, Bloo don 09-21-2023 Acetaminophen [Mass/Vol] ug/mL 10.0 - 30.0 ug/mL [facility] Ethanol [Mass/Vol] mg/dL NINF - 10 mg/dL [facility] Salicylates [Mass/Vol] mg/dL 4 - 20 mg/dL [facility] CBC W Auto Differential pane l (Bld)on 09-21-2023 Basophils (Bld) [#/Vol] 0.05 x10*3/uL Normal 0.00-0.10 [facility] Comment on above: Performed By: #### 5 7021-8 #### SOWMYA LAWSON ([id number]) [facility] ([facility]) [address] [place] [address] Basophils/100 WBC (Bld) 0.5 % Normal 0.0-2.0 [facility] Comment on above: Performed By: #### 5 7021-8 #### SOWMYA LAWSON ([id number]) [facility] ([facility]) [address] [place] [address] Eosinophils (Bld) [#/Vol] 0.04 x10*3/uL Normal 0.00-0.70 [facility] Comment on above: Performed By: #### 5 7021-8 #### SOWMYA LAWSON ([id number]) [facility] ([facility]) [address] [place] [address] Eosinophils/100 WBC (Bld) 0.4 % Normal 0.0-6.0 [facility] Comment on above: Performed By: #### 5 7021-8 #### SOWMYA LAWSON ([id number]) [facility] ([facility]) [address] [place] [address] Erythrocyte distribution width (RBC) [Ratio] 12.4 % Normal 11.5-14.5 [facility] Comment on above: Performed By: #### 5 7021-8 #### SOWMYA LAWSON ([id number]) [facility] ([facility]) [address] [place] [address] Hematocrit (Bld) [Volume fraction] 44.6 % Normal 36.0-46.0 [facility] Comment on above: Performed By: #### 5 7021-8 #### SOWMYA LAWSON ([id number]) [facility] ([facility]) [address] [place] [address] Hemoglobin (Bld) [Mass/Vol] 14.8 g/dL Normal 12.0-16.0 [facility] Comment on above: Performed By: #### 5 7021-8 #### SOWMYA LAWSON ([id number]) [facility] ([facility]) [address] [place] [address] Immature granulocytes (Bld) [#/Vol] 0.02 x10*3/uL Normal 0.00-0.70 [facility] Comment on above: Performed By: #### 5 7021-8 #### SOWMYA LAWSON ([id number]) [facility] ([facility]) [address] [place] [address] Immature granulocytes/100 WBC (Bld) 0.2 % Normal 0.0-0.9 [facility] Comment on above: Result Comment: Carla ture Granulocyte Count (IG) includes promyelocytes, myelocytes and metamyelocytes but does not include bands. Percent differential counts (%) should be interpreted in the context of the absolute cell counts (cells/UL). Performed By: #### 5 7021-8 #### SOWMYA LAWSON ([id number]) [facility] ([facility]) [address] [place] [address] Lymphocytes (Bld) [#/Vol] 3.33 x10*3/uL Normal 1.20-4.80 [facility] Comment on above: Performed By: #### 5 7021-8 #### SOWMYA LAWSON ([id number]) [facility] ([facility]) [address] [place] [address] Lymphocytes/100 WBC (Bld) 30.6 % Normal 13.0-44.0 [facility] Comment on above: Performed By: #### 5 7021-8 #### SOWMYA LAWSON ([id number]) [facility] ([facility]) [address] [place] [address] MCH (RBC) [Entitic mass] 29.3 pg Normal 26.0-34.0 [facility] Comment on above: Performed By: #### 5 7021-8 #### SOWMYA LAWSON ([id number]) [facility] ([facility]) [address] [place] [address] MCHC (RBC) [Mass/Vol] 33.2 g/dL Normal 32.0-36.0 [facility] Comment on above: Performed By: #### 5 7021-8 #### SOWMYA LAWSON ([id number]) [facility] ([facility]) [address] [place] [address] MCV (RBC) [Entitic vol] 88 fL Normal 80-100 [facility] Comment on above: Performed By: #### 5 7021-8 #### SOWMYA LAWSON ([id number]) [facility] ([facility]) [address] [place] [address] Monocytes (Bld) [#/Vol] 0.57 x10*3/uL Normal 0.10-1.00 [facility] Comment on above: Performed By: #### 5 7021-8 #### SOWMYA LAWSON ([id number]) [facility] ([facility]) [address] [place] [address] Monocytes/100 WBC (Bld) 5.2 % Normal 2.0-10.0 [facility] Comment on above: Performed By: #### 5 7021-8 #### SOWMYA LAWSON ([id number]) [facility] ([facility]) [address] [place] [address] Neutrophils (Bld) [#/Vol] 6.89 x10*3/uL Normal 1.20-7.70 [facility] Comment on above: Result Comment: Perc ent differential counts (%) should be interpreted in the context of the absolute cell counts (cells/uL). Performed By: #### 5 7021-8 #### SOWMYA LAWSON ([id number]) [facility] ([facility]) [address] [place] [address] Neutrophils/100 WBC (Bld) 63.1 % Normal 40.0-80.0 [facility] Comment on above: Performed By: #### 5 7021-8 #### SOWMYA LAWSON ([id number]) [facility] ([facility]) [address] [place] [address] Nucleated RBC/100 WBC (Bld) [Ratio] 0.0 /100 WBCs Normal 0.0-0.0 [facility] Comment on above: Performed By: #### 5 7021-8 #### SOWMYA LAWSON ([id number]) [facility] ([facility]) [address] [place] [address] Platelets (Bld) [#/Vol] 405 x10*3/uL Normal 150-450 [facility] Comment on above: Performed By: #### 5 7021-8 #### SOWMYA LAWSON ([id number]) [facility] ([facility]) [address] [place] [address] RBC (Bld) [#/Vol] 5.05 x10*6/uL Normal 4.00-5.20 [facility] Comment on above: Performed By: #### 5 7021-8 #### SOWMYA LAWSON ([id number]) [facility] ([facility]) [address] [place] [address] WBC (Bld) [#/Vol] 10.9 x10*3/uL Normal 4.4-11.3 [facility] Comment on above: Performed By: #### 5 7021-8 #### SOWMYA LAWSON ([id number]) [facility] ([facility]) [address] [place] [address] Basophils (Bld) [#/Vol] 0.05 10*3/uL [facility] Basophils/100 WBC (Bld) 0.5 % 0.0 - 2.0 % [facility] Eosinophils (Bld) [#/Vol] 0.04 10*3/uL [facility] Eosinophils/100 WBC (Bld) 0.4 % 0.0 - 6.0 % [facility] Erythrocyte distribution width (RBC) [Ratio] 12.4 % 11.5 - 14.5 % [facility] Hematocrit (Bld) [Volume fraction] 44.6 % 36.0 - 46.0 % [facility] Hemoglobin (Bld) [Mass/Vol] 14.8 g/dL 12.0 - 16.0 g/dL [facility] Immature granulocytes (Bld) [#/Vol] 0.02 10*3/uL [facility] Immature granulocytes/100 WBC (Bld) 0.2 % 0.0 - 0.9 % [facility] Comment on above: Immature Granulocyte Count (IG) includes promyelocytes, myelocytes and metamyelocytes but does not include bands. Percent differential counts (%) should be interpreted in the context of the absolute cell counts (cells/UL). Lymphocytes (Bld) [#/Vol] 3.33 10*3/uL [facility] Lymphocytes/100 WBC (Bld) 30.6 % 13.0 - 44.0 % [facility] MCH (RBC) [Entitic mass] 29.3 pg 26.0 - 34.0 pg [facility] MCHC (RBC) [Mass/Vol] 33.2 g/dL 32.0 - 36.0 g/dL [facility] MCV (RBC) [Entitic vol] 88 fL 80 - 100 fL [facility] Monocytes (Bld) [#/Vol] 0.57 10*3/uL [facility] Monocytes/100 WBC (Bld) 5.2 % 2.0 - 10.0 % [facility] Neutrophils (Bld) [#/Vol] 6.89 10*3/uL [facility] Comment on above: Percent differential counts (%) should be interpreted in the context of the absolute cell counts (cells/uL). Neutrophils/100 WBC (Bld) 63.1 % 40.0 - 80.0 % [facility] Nucleated RBC/100 WBC (Bld) [Ratio] 0.0 % [facility] Platelets (Bld) [#/Vol] 405 10*3/uL [facility] RBC (Bld) [#/Vol] 5.05 10*6/uL [facility] WBC (Bld) [#/Vol] 10.9 10*3/uL [facility] Comprehensive metabolic 2000 panelon 09-21-2023 Albumin BCP dye [Mass/Vol] 5.0 g/dL Normal 3.4-5.0 [facility] Comment on above: Performed By: #### 2 4323-8 #### SOWMYA LAWSON ([id number]) [facility] ([facility]) [address] [place] [address] ALP [Catalytic activity/Vol] 75 U/L Normal 33-110 [facility] Comment on above: Performed By: #### 2 432-8 #### SOWMYA LAWSON ([id number]) [facility] ([facility]) [address] [place] [address] ALT With P-5'-P [Catalytic activity/Vol] 17 U/L Normal 7-45 [facility] Comment on above: Result Comment: Beulah ents treated with Sulfasalazine may generate falsely decreased results for ALT. Performed By: #### 2 4322-8 #### SOWMYA LAWSON ([id number]) [facility] ([facility]) [address] [place] [address] Anion gap [Moles/Vol] 10 mmol/L Normal 10-20 [facility] Comment on above: Performed By: #### 2 4322-8 #### SOWMYA LAWSON ([id number]) [facility] ([facility]) [address] [place] [address] AST With P-5'-P [Catalytic activity/Vol] 17 U/L Normal 9-39 [facility] Comment on above: Performed By: #### 2 432-8 #### SOWMYA LAWSON ([id number]) [facility] ([facility]) [address] [place] [address] Bilirubin [Mass/Vol] 0.3 mg/dL Normal 0.0-1.2 [facility] Comment on above: Performed By: #### 2 4322-8 #### SOWMYA LAWSON ([id number]) [facility] ([facility]) [address] [place] [address] Calcium [Mass/Vol] 10.1 mg/dL Normal 8.6-10.3 [facility] Comment on above: Performed By: #### 2 432-8 #### SOWMYA LAWSON ([id number]) [facility] ([facility]) [address] [place] [address] Chloride [Moles/Vol] 103 mmol/L Normal 98-107 [facility] Comment on above: Performed By: #### 2 4323-8 #### SOWMYA LAWSON ([id number]) [facility] ([facility]) [address] [place] [address] CO2 [Moles/Vol] 27 mmol/L Normal 21-32 [facility] Comment on above: Performed By: #### 2 4323-8 #### SOWMYA LAWSON ([id number]) [facility] ([facility]) [address] [place] [address] Creatinine [Mass/Vol] 0.83 mg/dL Normal 0.50-1.05 [facility] Comment on above: Performed By: #### 2 4323-8 #### SOWMYA LAWSON ([id number]) [facility] ([facility]) [address] [place] [address]275 GFR/1.73 sq M.predicted MDRD (S/P/Bld) [Vol rate/Area] mL/min/{1.73_m2} Normal >60 [facility] Comment on above: Result Comment: Calc ulations of estimated GFR are performed using the 2020 CKD-EPI Study Refit equation without the race variable for the IDMS-Traceable creatinine methods. https://jasn.asnjournals.org/content/early//ASN.2020 715228 Performed By: #### 2 4323-8 #### SOWMYA LAWSON ([id number]) [facility] ([facility]) [facility] [place] [address] Glucose [Mass/Vol] 85 mg/dL Normal 74-99 [facility] Comment on above: Performed By: #### 2 4323-8 #### SOWMYA LAWSON ([id number]) [facility] ([facility]) [facility] [place] [address] Potassium [Moles/Vol] 3.5 mmol/L Normal 3.5-5.3 [facility] Comment on above: Performed By: #### 2 4323-8 #### SOWMYA LAWSON ([id number]) [facility] ([facility]) [address] [place] [address]71 Protein [Mass/Vol] 7.5 g/dL Normal 6.4-8.2 [facility] Comment on above: Performed By: #### 2 4323-8 #### SOWMYA LAWSON ([id number]) [facility] ([facility]) [address] [place] [address] 28005 Sodium [Moles/Vol] 136 mmol/L Normal 136-145 [facility] Comment on above: Performed By: #### 2 4323-8 #### SOWMYA LAWSON ([id number]) [facility] ([facility]) [address] [place] [address]609 Urea nitrogen [Mass/Vol] 15 mg/dL Normal 6-23 [facility] Comment on above: Performed By: #### 2 4323-8 #### SOWMYA LAWSON ([id number]) [facility] ([facility]) [address] [place] [address]17 Albumin BCP dye [Mass/Vol] 5.0 g/dL 3.4 - 5.0 g/dL [facility] ALP [Catalytic activity/Vol] 75 U/L 33 - 110 U/L [facility] ALT With P-5'-P [Catalytic activity/Vol] 17 U/L 7 - 45 U/L [facility] Comment on above: Patients treated wit h Sulfasalazine may generate falsely decreased results for ALT. Anion gap [Moles/Vol] 10 mmol/L 10 - 2 0 mmol/L [facility] AST With P-5'-P [Catalytic activity/Vol] 17 U/L 9 - 39 U/L [facility] Bilirubin [Mass/Vol] 0.3 mg/dL 0.0 - 1 .2 mg/dL [facility] Calcium [Mass/Vol] 10.1 mg/dL 8.6 - 10. 3 mg/dL [facility] Chloride [Moles/Vol] 103 mmol/L 98 - 10 7 mmol/L [facility] CO2 [Moles/Vol] 27 mmol/L 21 - 32 mmol/L [facility] Creatinine [Mass/Vol] 0.83 mg/dL 0.50 - 1.05 mg/dL [facility] eGFR - PINF [facility] Comment on above: Calculations of nenita mated GFR are performed using the 2020 CKD-EPI Study Refit equation without the race variable for the IDMS-Traceable creatinine methods. https://jasn.asnjournals.org/content/early/ASN.2020 271819 Glucose [Mass/Vol] 85 mg/dL 74 - 99 mg/dL [facility] Potassium [Moles/Vol] 3.5 mmol/L 3.5 - 5.3 mmol/L [facility] Protein [Mass/Vol] 7.5 g/dL 6.4 - 8.2 g/dL [facility] Sodium [Moles/Vol] 136 mmol/L 136 - 145 mmol/L [facility] Urea nitrogen [Mass/Vol] 15 mg/dL 6 - 23 mg/dL [facility] DRUG SCREEN,URINEon 09-21-19 24 Amphetamines Screen Ql (U) Negative Normal Presumptive Negative [facility] Comment on above: Order Comment: Drug screen results are presumptive and should not be used to assess compliance with prescribed medication. Contact the performing [facility] laboratory to add-on definitive confirmatory [...] propranolol. Performed By: #### D RUG3 #### DENG WEHRLI ([id number]) [facility] ([facility]) [facility] [place] [address] Barbiturates Screen Ql (U) Negative Normal Presumptive Negative [facility] Comment on above: Order Comment: Drug screen results are presumptive and should not be used to assess compliance with prescribed medication. Contact the performing [facility] laboratory to add-on definitive confirmatory [...] By: #### D RUG3 #### SOWMYA LAWSON ([id number]) [facility] ([facility]) [facility] [place] [id number] Benzodiazepines Ql (U) Negative Normal Presu mptive Negative [facility] Comment on above: Order Comment: Drug screen results are presumptive and should not be used to assess compliance with prescribed medication. Contact the performing [facility] laboratory to add-on definitive confirmatory [...] By: #### D RUG3 #### SOWMYA LAWSON ([id number]) [facility] ([facility]) [address] [place] [address] Benzoylecgonine Screen Ql (U) Negative Normal Presumptive Negative [facility] Comment on above: Order Comment: Drug screen results are presumptive and should not be used to assess compliance with prescribed medication. Contact the performing [facility] laboratory to add-on definitive confirmatory [...] By: #### D RUG3 #### SOWMYA LAWSON ([id number]) [facility] ([facility]) [address] [place] [address] Cannabinoids Screen Ql (U) Negative Normal Presumptive Negative [facility] Comment on above: Order Comment: Drug screen results are presumptive and should not be used to assess compliance with prescribed medication. Contact the performing [facility] laboratory to add-on definitive confirmatory [...] By: #### D RUG3 #### SOWMYA LAWSON ([id number]) [facility] ([facility]) [address] [place] [address] fentaNYL+Norfentanyl Screen Ql (U) Negative Normal Presumptive Negative [facility] Comment on above: Order Comment: Drug screen results are presumptive and should not be used to assess compliance with prescribed medication. Contact the performing [facility] laboratory to add-on definitive confirmatory [...] By: #### D RUG3 #### SOWMYA LAWSON ([id number]) [facility] ([facility]) [address] [place], [place] [address] Opiates Screen Ql (U) Negative Normal Presum ptive Negative [facility] Comment on above: Order Comment: Drug screen results are presumptive and should not be used to assess compliance with prescribed medication. Contact the performing [facility] laboratory to add-on definitive confirmatory [...] result). Performed By: #### D RUG3 #### SOWMYA LAWSON ([id number]) [facility] ([facility]) [address] [place], [place] [address] oxyCODONE+oxyMORphone Screen Ql (U) Negative Normal Presumptive Negative [facility] Comment on above: Order Comment: Drug screen results are presumptive and should not be used to assess compliance with prescribed medication. Contact the performing [facility] laboratory to add-on definitive confirmatory [...] By: #### D RUG3 #### SOWMYA LAWSON ([id number]) [facility] ([facility]) [address] [place], [place] [address] Phencyclidine Ql (U) Negative Normal Presump tive Negative [facility] Comment on above: Order Comment: Drug screen results are presumptive and should not be used to assess compliance with prescribed medication. Contact the performing [facility] laboratory to add-on definitive confirmatory [...] By: #### D RUG3 #### SOWMYA LAWSON ([id number]) [facility] ([facility]) [facility] [place] [address] Drug Screen, Urineon 024 Amphetamines Screen Ql (U) Negative Presumptive Negative [facility] Comment on above: CUTOFF LEVEL: 500 NG /ML Cross-reactivity has been reported with high concentrations of the following drugs: buproprion, chloroquine, chlorpromazine, ephedrine, mephentermine, fenfluramine, phentermine, phenylpropanolamine, pseudoephedrine, and propranolol. Barbiturates Screen Ql (U) Negative Presumptive Negative [facility] Comment on above: CUTOFF LEVEL: 200 NG /ML Benzodiazepines Ql (U) Negative Presu mptive Negative [facility] Comment on above: CUTOFF LEVEL: 200 NG /ML Benzoylecgonine Screen Ql (U) Negative Presumptive Negative [facility] Comment on above: CUTOFF LEVEL: 150 NG /ML Cannabinoids Screen Ql (U) Negative Presumptive Negative [facility] Comment on above: CUTOFF LEVEL: 50 NG/ ML fentaNYL+Norfentanyl Screen Ql (U) Negative Presumptive Negative [facility] Comment on above: CUTOFF LEVEL: 5 NG/M L Interpretation and review of laboratory results Normal [facility] Opiates Screen Ql (U) Negative Presum ptive Negative [facility] Comment on above: CUTOFF LEVEL: 300 NG /ML The opiate screen does not detect fentanyl, meperidine, or tramadol. Oxycodone is not consistently detected (refer to Oxycodone Screen, Urine result). oxyCODONE+oxyMORphone Screen Ql (U) Negative Presumptive Negative [facility] Comment on above: CUTOFF LEVEL: 100 NG /ML This test will accurately detect both oxycodone and oxymorphone. Phencyclidine Ql (U) Negative Presump tive Negative [facility] Comment on above: CUTOFF LEVEL: 25 NG/ ML Cross-reactivity has been reported with dextromethorphan. Drug screen results are presumptive and should not be used to assess compliance with prescribed medication. Contact the performing [facility] laboratory to add-on definitive confirmatory [...] be directed to the laboratory medical directors. [facility] HCG ( test) IA.rapi d Ql (U)on 09-21-2023 HCG ( test) Ql (U) Negative Normal NEGATIVE [facility] Comment on above: Performed By: #### 8 0384-1 #### SOWMYA LAWSON ([id number]) [facility] ([facility]) [address] [place] [address] HCG ( test) Ql (U) Negative NEGATIVE [facility] Work Phone: Interpretation and review of laboratory results Normal [facility] Work Phone: [facility] Work Phone: No Panel Informationon 09-21 Interpretation and review of laboratory results [facility] Urinalysis complete W Reflex Culture panel (U)on 09-21-2023 Appearance (U) Clear Normal Clear [facility] Comment on above: Performed By: #### 5 8077-9 #### SOWMYA LAWSON ([id number]) [facility] ([facility]) [address] [place], [place] [address] Bilirubin (U) [Mass/Vol] Negative Normal NEGATIVE [facility] Comment on above: Performed By: #### 5 8077-9 #### SOWMYA LAWSON ([id number]) [facility] ([facility]) [address] [place], [place] [address] Color (U) Straw Normal Straw, Yellow [facility] Comment on above: Performed By: #### 5 8077-9 #### SOWMYA LAWSON ([id number]) [facility] ([facility]) [address] [place] [address] Glucose Auto test strip (U) [Mass/Vol] Negative Normal NEGATIVE [facility] Comment on above: Performed By: #### 5 8077-9 #### SOWMYA LAWSON ([id number]) [facility] ([facility]) [address] [place] [address] Ketones (U) [Mass/Vol] Negative [facility] Comment on above: Performed By: #### 5 8077-9 #### SOWMYA LAWSON ([id number]) [facility] ([facility]) [address] [place] [address] Leukocyte esterase Auto test strip Ql (U) Negative Normal NEGATIVE [facility] Comment on above: Performed By: #### 5 8077-9 #### SOWMYA LAWSON ([id number]) [facility] ([facility]) [address] [place] [address] Nitrite Auto test strip Ql (U) Negative Normal NEGATIVE [facility] Comment on above: Performed By: #### 5 8077-9 #### SOWMYA LAWSON ([id number]) [facility] ([facility]) [address] [place] [address] pH (U) 7.0 [pH] Normal 5.0, 5.5, 6.0, 6.5, 7.0, 7.5, 8.0 [facility] Comment on above: Performed By: #### 5 8077-9 #### SOWMYA LAWSON ([id number]) [facility] ([facility]) [address] [place] [address] Protein (U) [Mass/Vol] Negative Normal NEGATIVE [facility] Comment on above: Performed By: #### 5 8077-9 #### SOWMYA LAWSON ([id number]) [facility] ([facility]) [address] [place] [address] RBC (U) [#/Vol] Negative Normal NEGATIVE [facility] Comment on above: Performed By: #### 5 8077-9 #### SOWMYA LAWSON ([id number]) [facility] ([facility]) [address] [place] [address] Specific gravity (U) [Rel density] 1.014 Normal 1.005-1.035 [facility] Comment on above: Performed By: #### 5 8077-9 #### SOWMYA LAWSON ([id number]) [facility] ([facility]) [address] [place] [address] Urobilinogen (U) [Mass/Vol] mg/dL Normal <2.0 [facility] Comment on above: Performed By: #### 5 8077-9 #### DENG RENNY ([id number]) [facility] ([facility]) [address] [place] [address] Urinalysis complete W Reflex Culture panel (U)Ordered By: Stephanie Temple on 09-21-2023 Appearance (U) Clear Clear [facility] Bilirubin (U) [Mass/Vol] Negative NEGATIVE [facility] Color (U) Straw Straw, Yellow [facility] Glucose Auto test strip (U) [Mass/Vol] Negative NEGATIVE mg/dL [facility] Interpretation and review of laboratory results Normal [facility] Ketones (U) [Mass/Vol] Negative NEGAT YESY mg/dL [facility] Leukocyte esterase Auto test strip Ql (U) Negative NEGATIVE [facility] Nitrite Auto test strip Ql (U) Negative NEGATIVE [facility] pH (U) 7.0 [pH] 5.0, 5.5, 6.0, 6.5, 7.0, 7.5, 8.0 [facility] Protein (U) [Mass/Vol] Negative NEGAT YESY mg/dL [facility] RBC (U) [#/Vol] Negative NEGATIVE [facility] Specific gravity (U) [Rel density] 1.014 1.005 - 1.035 [facility] Urobilinogen (U) [Mass/Vol] mg/dL NINF - 2.0 mg/dL [facility] DRUG SCREEN,URINEon 03-04-20 AMPHETAMINE SCREEN,U Canceled Normal [facility] Comment on above: Order Comment: TEST DRUG SCREEN,URINE WAS CANCELLED, 03/04/2023 17:30 discharged. Result Comment: CUTO FF LEVEL: 500 NG/ML Cross-reactivity has been reported with high concentrations of the following drugs: buproprion, chloroquine, chlorpromazine, ephedrine, mephentermine, fenfluramine, phentermine, phenylpropanolamine, pseudoephedrine, and propranolol. Performed By: #### C BCDF #### [place] [address] BARBITURATES SCREEN,U Canceled Normal [facility] Comment on above: Order Comment: TEST DRUG SCREEN,URINE WAS CANCELLED, 03/04/2023 17:30 discharged. Result Comment: CUTO FF LEVEL: 200 NG/ML Performed By: #### C BCDF #### [address] [address] BENZODIAZEPINES SCREEN,U Canceled [facility] Comment on above: Order Comment: TEST DRUG SCREEN,URINE WAS CANCELLED, 03/04/2023 17:30 discharged. Result Comment: CUTO FF LEVEL: 200 NG/ML Performed By: #### C BCDF #### [address] [address] CANNABINOIDS SCREEN,U Canceled [facility] Comment on above: Order Comment: TEST DRUG SCREEN,URINE WAS CANCELLED, 03/04/2023 17:30 discharged. Result Comment: CUTO FF LEVEL: 50 NG/ML Performed By: #### C BCDF #### [place] [id number] COCAINE METABOLITE SCREEN,U Canceled [facility] Comment on above: Order Comment: TEST DRUG SCREEN,URINE WAS CANCELLED, 03/04/2023 17:30 discharged. Result Comment: CUTO FF LEVEL: 150 NG/ML Performed By: #### C BCDF #### [address] [address] DRUG SCREEN COMMENT Canceled [facility] Comment on above: Order Comment: TEST DRUG SCREEN,URINE WAS CANCELLED, 03/04/2023 17:30 discharged. Result Comment: Drug screen results are presumptive and should not be used to assess compliance with prescribed medication. Contact the performing [facility] laboratory to add-on definitive confirmatory [...] directors. Performed By: #### C BCDF #### [place] [id number] FENTANYL SCREEN,URINE Canceled [facility] Comment on above: Order Comment: TEST DRUG SCREEN,URINE WAS CANCELLED, 03/04/2023 17:30 discharged. Result Comment: CUTO FF LEVEL: 5 NG/ML Performed By: #### C BCDF #### [place] [id number] METHADONE SCREEN,U Canceled [facility] Comment on above: Order Comment: TEST DRUG SCREEN,URINE WAS CANCELLED, 03/04/2023 17:30 discharged. Result Comment: CUTO FF LEVEL: 150 NG/ML The metabolite W-vqjik-akupltffuswdha (LAAM) is not detected by this method in concentrations that would be found in the urine of patients on LAAM therapy. Performed By: #### C BCDF #### [place] [id number] OPIATES SCREEN,U Canceled [facility] Comment on above: Order Comment: TEST DRUG SCREEN,URINE WAS CANCELLED, 03/04/2023 17:30 discharged. Result Comment: CUTO FF LEVEL: 300 NG/ML The opiate screen does not detect fentanyl, meperidine, or tramadol. Oxycodone is not consistently detected (refer to Oxycodone Screen, Urine result). Performed By: #### C BCDF #### [place] [id number] OXYCODONE SCREEN,U Canceled [facility] Comment on above: Order Comment: TEST DRUG SCREEN,URINE WAS CANCELLED, 03/04/2023 17:30 discharged. Result Comment: CUTO FF LEVEL: 100 NG/ML This test will accurately detect both oxycodone and oxymorphone. Performed By: #### C BCDF #### [place] [id number] PCP SCREEN,U Canceled [facility] Comment on above: Order Comment: TEST DRUG SCREEN,URINE WAS CANCELLED, 03/04/2023 17:30 discharged. Result Comment: CUTO FF LEVEL: 25 NG/ML Cross-reactivity has been reported with dextromethorphan. Performed By: #### C BCDF #### [address] [address] SALICYLATEon 03-04-2023 SALICYLATE 24 mg/dL High 4 - 20 [facility] Comment on above: Performed By: #### S ALIC #### [address] [address] URINALYSIS WITH CULTURE IF I NDICATEDon 03-04-2023 Appearance (U) Canceled [facility] Comment on above: Order Comment: TEST URINALYSIS WITH CULTURE IF INDICATED WAS CANCELLED, 03/04/2023 17:29 discharged. Performed By: #### U ARFX #### [place] [id number] ASCORBIC ACID Canceled [facility] Comment on above: Order Comment: TEST [...] Performed By: #### U ARFX #### [address] [address] Bilirubin Ql (U) Canceled [facility] Comment on above: Order Comment: TEST URINALYSIS WITH CULTURE IF INDICATED WAS CANCELLED, 03/04/2023 17:29 discharged. Performed By: #### U ARFX #### [address] [address] Color (U) Canceled [facility] Comment on above: Order Comment: TEST URINALYSIS WITH CULTURE IF INDICATED WAS CANCELLED, 03/04/2023 17:29 discharged. Performed By: #### U ARFX #### [address] [address] Glucose Ql (U) Canceled [facility] Comment on above: Order Comment: TEST URINALYSIS WITH CULTURE IF INDICATED WAS CANCELLED, 03/04/2023 17:29 discharged. Performed By: #### U ARFX #### [address] [address] Hemoglobin Ql (U) Canceled [facility] Comment on above: Order Comment: TEST URINALYSIS WITH CULTURE IF INDICATED WAS CANCELLED, 03/04/2023 17:29 discharged. Performed By: #### U ARFX #### [address] [address] Ketones Ql (U) Canceled [facility] Comment on above: Order Comment: TEST URINALYSIS WITH CULTURE IF INDICATED WAS CANCELLED, 03/04/2023 17:29 discharged. Performed By: #### U ARFX #### [address] [address] Leukocyte esterase Test strip Ql (U) Canceled [facility] Comment on above: Order Comment: TEST URINALYSIS WITH CULTURE IF INDICATED WAS CANCELLED, 03/04/2023 17:29 discharged. Performed By: #### U ARFX #### [address] [address] Nitrite Ql (U) Canceled [facility] Comment on above: Order Comment: TEST URINALYSIS WITH CULTURE IF INDICATED WAS CANCELLED, 03/04/2023 17:29 discharged. Performed By: #### U ARFX #### [address] [address] pH Canceled [facility] Comment on above: Order Comment: TEST URINALYSIS WITH CULTURE IF INDICATED WAS CANCELLED, 03/04/2023 17:29 discharged. Performed By: #### U ARFX #### [address] [address] Protein Ql (U) Canceled [facility] Comment on above: Order Comment: TEST URINALYSIS WITH CULTURE IF INDICATED WAS CANCELLED, 03/04/2023 17:29 discharged. Performed By: #### U ARFX #### [address] [address] Specific gravity (U) [Rel density] Canceled [facility] Comment on above: Order Comment: TEST URINALYSIS WITH CULTURE IF INDICATED WAS CANCELLED, 03/04/2023 17:29 discharged. Performed By: #### U ARFX #### [place] [address] UROBILINOGEN Canceled Normal [facility] Comment on above: Order Comment: TEST URINALYSIS WITH CULTURE IF INDICATED WAS CANCELLED, 03/04/2023 17:29 discharged. Performed By: #### U ARFX #### [place] [address] ACETAMINOPHENon 03-03-2023 Acetaminophen [Mass/Vol] 67.8 ug/mL High 10.0 - 30.0 [facility] Comment on above: Performed By: #### C BCDF #### [place] [address] Acetaminophen [Mass/Vol] 98.7 ug/mL High 10.0 - 30.0 [facility] Comment on above: Performed By: #### C K #### [place] [address] ALCOHOLon 03-03-2023 Ethanol [Mass/Vol] mg/dL Normal [facility] Comment on above: Result Comment: FOR MEDICAL USE ONLY. . REF VALUES <10 Performed By: #### C K #### [place] [address] ARTERIAL BLOOD GASon 023 BASE EXCESS-BLOOD -1.8 mmol/L Normal -2.0 - 3.0 [facility] Comment on above: Performed By: #### B LGA2 #### [place] [address] BICARB, CALCULATED 18.8 mmol/L Low 22.0 - 26.0 [facility] Comment on above: Performed By: #### B LGA2 #### [place] [address] FIO2 21 % Normal [facility] Comment on above: Performed By: #### B LGA2 #### [place] [address] OXY HGB 97.3 % Normal 94.0 - 98.0 [facility] Comment on above: Performed By: #### B LGA2 #### [place] [id number] Oxygen (Bld) [Partial pressure] 126 mm[Hg] High 85 - 95 [facility] Comment on above: Performed By: #### B LGA2 #### [place] [address] PATIENT TEMPERATURE 37.0 degrees C Normal [facility] Comment on above: Result Comment: NOTE : PATIENT RESULTS ARE NOT CORRECTED FOR TEMPERATURE. Performed By: #### B LGA2 #### [place] [address] PCO2 22 mmHg Low 38 - 42 [facility] Comment on above: Performed By: #### B LGA2 #### [place] [address] pH (Bld) 7.54 [pH] High 7.38 - 7.42 [facility] Comment on above: Performed By: #### B LGA2 #### [place] [address] SO2 100 % Normal 94 - 100 [facility] Comment on above: Performed By: #### B LGA2 #### [place] [id number] BASIC METABOLIC PANELon - Anion gap [Moles/Vol] 19 mmol/L Normal 10 - 20 [facility] Comment on above: Performed By: #### B MP #### [place] [id number] Calcium [Mass/Vol] 9.6 mg/dL Normal 8.6 - 10.3 [facility] Comment on above: Performed By: #### B MP #### [address] [address] Chloride [Moles/Vol] 105 mmol/L Normal 98 - 107 [facility] Comment on above: Performed By: #### B MP #### [facility] [address] [place] [address] Creatinine [Mass/Vol] 1.01 mg/dL Normal 0.50 - 1.05 [facility] Comment on above: Performed By: #### B MP #### [address] [address] GFR/1.73 sq M.predicted among non-blacks MDRD (S/P/Bld) [Vol rate/Area] 82 mL/min/{1.73_m2} Normal >90 [facility] Comment on above: Result Comment: CALC ULATIONS OF ESTIMATED GFR ARE PERFORMED USING THE 2020 CKD-EPI STUDY REFIT EQUATION WITHOUT THE RACE VARIABLE FOR THE IDMS-TRACEABLE CREATININE METHODS. https://jasn.asnjournals.org/content/early/ASN.2020 223026 Performed By: #### B MP #### [address] [address] Glucose [Mass/Vol] 96 mg/dL Normal 74 - 99 [facility] Comment on above: Performed By: #### B MP #### [address] [address] HCO3 (Bld) [Moles/Vol] 18 mmol/L Low 21 - 32 [facility] Comment on above: Performed By: #### B MP #### [address] [address] Potassium [Moles/Vol] 3.2 mmol/L Low 3.5 - 5.3 [facility] Comment on above: Performed By: #### B MP #### [address] [address] Sodium [Moles/Vol] 139 mmol/L Normal 136 - 145 [facility] Comment on above: Performed By: #### B MP #### [address] [address] Urea nitrogen [Mass/Vol] 15 mg/dL Normal 6 - 23 [facility] Comment on above: Performed By: #### B MP #### [address] [address] CBC AND DIFFERENTIALon 03-03 % AUTOMATED IMMATURE GRAN 0.3 % Normal 0.0 - 0.9 [facility] Comment on above: Result Comment: Carla ture Granulocyte Count (IG) includes promyelocytes, myelocytes and metamyelocytes but does not include bands. Percent differential counts (%) should be interpreted in the context of the absolute cell counts (cells/L). Performed By: #### C BCDF #### [address] [address] Basophils (Bld) [#/Vol] 0.04 10*3/uL Normal 0.00 - 0.1 0 [facility] Comment on above: Performed By: #### C BCDF #### [address] [address] Basophils/100 WBC (Bld) 0.3 % Normal 0.0 - 2.0 [facility] Comment on above: Performed By: #### C BCDF #### [address] [address] Eosinophils (Bld) [#/Vol] 0.05 10*3/uL Normal 0.00 - 0.70 [facility] Comment on above: Performed By: #### C BCDF #### [address] [address] Eosinophils/100 WBC (Bld) 0.4 % Normal 0.0 - 6.0 [facility] Comment on above: Performed By: #### C BCDF #### [address] [address] Erythrocyte distribution width (RBC) [Ratio] 12.3 % Normal 11.5 - 14.5 [facility] Comment on above: Performed By: #### C BCDF #### [address] [address] Hematocrit (Bld) [Volume fraction] 46.7 % High 36.0 - 46.0 [facility] Comment on above: Performed By: #### C BCDF #### [address] [address] Hemoglobin (Bld) [Mass/Vol] 15.4 g/dL Normal 12.0 - 16.0 [facility] Comment on above: Performed By: #### C BCDF #### [address] [address] Lymphocytes (Bld) [#/Vol] 4.76 10*3/uL Normal 1.20 - 4.80 [facility] Comment on above: Performed By: #### C BCDF #### [address] [address] Lymphocytes/100 WBC (Bld) 33.7 % Normal 13.0 - 44.0 [facility] Comment on above: Performed By: #### C BCDF #### [address] [address] MCHC (RBC) [Mass/Vol] 33.0 g/dL Normal 32.0 - 36.0 [facility] Comment on above: Performed By: #### C BCDF #### [address] [address] MCV (RBC) [Entitic vol] 90 fL Normal 80 - 100 [facility] Comment on above: Performed By: #### C BCDF #### [address] [address] Monocytes (Bld) [#/Vol] 1.17 10*3/uL High 0.10 - 1.0 0 [facility] Comment on above: Performed By: #### C BCDF #### [address] [address] Monocytes/100 WBC (Bld) 8.3 % Normal 2.0 - 10.0 [facility] Comment on above: Performed By: #### C BCDF #### [address] [address] Neutrophils (Bld) [#/Vol] 8.08 10*3/uL High 1.20 - 7.70 [facility] Comment on above: Result Comment: Perc ent differential counts (%) should be interpreted in the context of the absolute cell counts (cells/L). Performed By: #### C BCDF #### [address] [address] Neutrophils/100 WBC (Bld) 57.0 % Normal 40.0 - 80.0 [facility] Comment on above: Performed By: #### C BCDF #### [address] [address] Platelets (Bld) [#/Vol] 444 10*3/uL Normal 150 - 450 [facility] Comment on above: Performed By: #### C BCDF #### [address] [address] RBC 5.20 x10E12/L Normal 4.00 - 5.20 [facility] Comment on above: Performed By: #### C BCDF #### [address] [address] WBC (Bld) [#/Vol] 14.1 10*3/uL High 4.4 - 11.3 [place] [facility] Comment on above: Performed By: #### C BCDF #### [address] [address] CREATINE KINASEon 03-03-2023 CK [Catalytic activity/Vol] 91 U/L Normal 0 - 215 [facility] Comment on above: Performed By: #### C K #### [address] [address] Clinical Event Note-Poison C ontrolon 03-03-2023 Clinical [...] 03-Mar-2023 17:03 by Alley Singh (SUPV) Normal [facility] HCG,BETA-QUANTITATIVEon - HCG,BETA-QUANTITATIVE <2 Normal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 Body temperature 98.1 [degF] Dr. Jorge Bearden MD Work Phone: 8(445)286-085853 [place] [address] 12-20-2024 20:19-0400 Diastolic blood pressure 69 mm[Hg] Dr. Jorge Bearden MD Work Phone: 8(775)231-092753 [place] [address] 12-20-2024 20:19-0400 Heart rate 90 /min Dr. Jorge Bearden MD Work Phone: 3(769)908-910753 [place] [address] 12-20-2024 20:19-0400 Respiratory rate 16 /min Dr. Jorge Bearden MD Work Phone: 0(450)675-208453 [place] [address] 12-20-2024 20:19-0400 SaO2% (BldA) [Mass fraction] 98 % Dr. Jorge Bearden MD Work Phone: 6(740)112-387753 [place] [address] 12-20-2024 20:19-0400 Systolic blood pressure 122 mm[Hg] Dr. Jorge Bearden MD Work Phone: 6(465)461-350753 [place] [address] 12-20-2024 17:13-0400 Body mass index (BMI) [Ratio] 34 kg/m2 Dr. Jorge Bearden MD Work Phone: 4(516)164-985153 [place] [address] 12-20-2024 17:13-0400 Body weight 81.[address] Jorge Bearden MD Work Phone: 1(824)232-497653 [place] [address] 12-18-2024 09:39-0400 Body mass index (BMI) [Ratio] 33.5 kg/m2 Dr. Jorge Bearden MD Work Phone: 4(079)642-611753 [place] [address] 12-18-2024 09:39-0400 Body weight 80.[address] Jorge Bearden MD Work Phone: 3(481)789-386153 [place] [address] 12-18-2024 09:39-0400 Diastolic blood pressure 71 mm[Hg] Dr. Jorge Bearden MD Work Phone: 2(006)943-596153 [place] [address] 12-18-2024 09:39-0400 Systolic blood pressure 107 mm[Hg] Dr. Jorge Bearden MD Work Phone: 1(049)793-692353 [place] [address] 12-01-2024 19:22-0400 Body temperature 98.1 [degF] Dr. Jorge Bearden MD Work Phone: 0(349)243-082353 [place] [address] 12-01-2024 19:22-0400 Respiratory rate 16 /min Dr. Jorge Bearden MD Work Phone: 8(707)737-110153 [place] [address] 12-01-2024 19:20-0400 Diastolic blood pressure 69 mm[Hg] Dr. Jorge Bearden MD Work Phone: 5(653)878-204153 [place] [address] 12-01-2024 19:20-0400 Heart rate 90 /min Dr. Jorge Bearden MD Work Phone: 7(220)074-516253 [place] [address] 12-01-2024 19:20-0400 Systolic blood pressure 109 mm[Hg] Dr. Jorge Bearden MD Work Phone: 0(264)859-752753 [place] [address] 12-01-2024 17:58-0400 Body height 154.[address] Jorge Bearden MD Work Phone: 9(702)427-861453 [place] [address] 12-01-2024 17:58-0400 Body mass index (BMI) [Ratio] 33 kg/m2 Dr. Jorge Bearden MD Work Phone: 1(472)421-694653 [place] [address] 12-01-2024 17:58-0400 Body weight 79.[address] Jorge Bearden MD Work Phone: 5(972)908-750753 [place] [address] 11-30-2024 10:17-0400 Body mass index (BMI) [Ratio] 32.6 kg/m2 Dr. Jorge Bearden MD Work Phone: 2(835)375-478053 [place] [address] 11-30-2024 10:17-0400 Body weight 78.[address] Jorge Bearden MD Work Phone: 8(093)424-562553 [place] [address] 11-30-2024 10:17-0400 Diastolic blood pressure 68 mm[Hg] Dr. Jorge Bearden MD Work Phone: 0(496)851-416253 [place] [address] 11-30-2024 10:17-0400 Systolic blood pressure 101 mm[Hg] Dr. Jorge Bearden MD Work Phone: 3(828)309-877453 [place] [address] 11-19-2024 11:08-0400 Body mass index (BMI) [Ratio] 32.8 kg/m2 Dr. Jorge Bearden MD Work Phone: 2(278)446-042953 [place] [address] 11-19-2024 11:08-0400 Body weight 78.[address] Jorge Bearden MD Work Phone: 9(305)636-928153 [place] [address] 11-19-2024 11:08-0400 Diastolic blood pressure 65 mm[Hg] Dr. Jorge Bearden MD Work Phone: 3(702)630-820653 [place] [address] 11-19-2024 11:08-0400 Systolic blood pressure 99 mm[Hg] Dr. Jorge Bearden MD Work Phone: [facility] 11-09-2024 11:20-0400 Body mass index (BMI) [Ratio] 32.2 kg/m2 Dr. Jorge Bearden MD Work Phone: [facility] 11-09-2024 11:20-0400 Body weight 77.[address] Jorge Bearden MD Work Phone: [facility] 11-09-2024 11:20-0400 Diastolic blood pressure 63 mm[Hg] Dr. Jorge Bearden MD Work Phone: [facility] 11-09-2024 11:20-0400 Systolic blood pressure 101 mm[Hg] Dr. Jorge Bearden MD Work Phone: [facility] 10-11-2024 11:08-0500 Body temperature 99.61 [degF] Iker Morrow APRN.LUMBER DRIVER Work Phone: [facility] 10-11-2024 11:08-0500 Body weight 75.7 kg Iker Morrow APRN.LUMBER DRIVER Work Phone: [facility] 10-11-2024 11:08-0500 Diastolic blood pressure 68 mm[Hg] Iker Morrow APRN.LUMBER DRIVER Work Phone: [facility] 10-11-2024 11:08-0500 Heart rate 107 /min Iker Morrow APRN.LUMBER DRIVER Work Phone: [facility] 10-11-2024 11:08-0500 Respiratory rate 20 /min Iker Morrow APRN.LUMBER DRIVER Work Phone: [facility] 10-11-2024 11:08-0500 SaO2% (BldA) [Mass fraction] 100 % Iker Morrow APRN.LUMBER DRIVER Work Phone: [facility] 10-11-2024 11:08-0500 Systolic blood pressure 116 mm[Hg] Iker Morrow APRN.LUMBER DRIVER Work Phone: [facility] 10-08-2024 09:34-0500 Body mass index (BMI) [Ratio] 31.8 kg/m2 Dr. Jorge Bearden MD Work Phone: 6(002)489-751153 [place] [address] 10-08-2024 09:34-0500 Body weight 76.[address] Jorge Bearden MD Work Phone: 0(996)188-158653 [place] [address] 10-08-2024 09:34-0500 Diastolic blood pressure 55 mm[Hg] Dr. Jorge Bearden MD Work Phone: 4(414)223-723653 [place] [address] 10-08-2024 09:34-0500 Systolic blood pressure 107 mm[Hg] Dr. Jorge Bearden MD Work Phone: 5(092)226-002653 [place] [address] 08-24-2024 10:42-0500 Body mass index (BMI) [Ratio] 30.4 kg/m2 Dr. Jorge Bearden MD Work Phone: 3(379)554-578453 [place] [address] 08-24-2024 10:42-0500 Body weight 73.[address] Jorge Bearden MD Work Phone: 9(827)186-934153 [place] [address] 08-24-2024 10:42-0500 Diastolic blood pressure 72 mm[Hg] Dr. Jorge Bearden MD Work Phone: 9(320)175-924253 [place] [address] 08-24-2024 10:42-0500 Systolic blood pressure 116 mm[Hg] Dr. Jorge Bearden MD Work Phone: 1(417)289-693353 [place] [address] 08-24-2024 10:40-0500 Body mass index (BMI) [Ratio] 30.8 kg/m2 Dr. Jorge Bearden MD Work Phone: 1(204)190-302653 [place] [address] 08-24-2024 10:40-0500 Body weight 73.[address] Jorge Bearden MD Work Phone: 1(225)976-881753 [place] [address] 08-24-2024 10:40-0500 Diastolic blood pressure 76 mm[Hg] Dr. Jorge Bearden MD Work Phone: 7(740)981-412153 [place] [address] 08-24-2024 10:40-0500 Systolic blood pressure 112 mm[Hg] Dr. Jorge Bearden MD Work Phone: 7(711)446-287953 [place] [address] 2024 13:32-0500 Body temperature 98.2 [degF] Dr. Jorge Bearden MD Work Phone: 6(674)324-392953 [place] [address] 2024 13:32-0500 Diastolic blood pressure 58 mm[Hg] Dr. Jorge Bearden MD Work Phone: 4(630)342-634953 [place] [address] 2024 13:32-0500 Heart rate 78 /min Dr. Jorge Bearden MD Work Phone: 9(836)533-394453 [place] [address] 2024 13:32-0500 Respiratory rate 16 /min Dr. Jorge Bearden MD Work Phone: 1(245)613-414853 [place] [address] 2024 13:32-0500 SaO2% (BldA) [Mass fraction] 98 % Dr. Jorge Bearden MD Work Phone: 2(607)816-655053 [place] [address] 2024 13:32-0500 Systolic blood pressure 134 mm[Hg] Dr. Jorge Bearden MD Work Phone: 2(088)732-309653 [place] [address] 2024 12:27-0500 Body mass index (BMI) [Ratio] 30.4 kg/m2 Dr. Jorge Bearden MD Work Phone: 1(040)977-410953 [place] [address] 2024 12:27-0500 Body weight 73.[address] Jorge Bearden MD Work Phone: 3(443)866-646053 [place] [address] 08-13-2024 08:33-0500 Body mass index (BMI) [Ratio] 30.7 kg/m2 Dr. Jorge Bearden MD Work Phone: 3(702)372-124053 [place] [address] 08-13-2024 08:33-0500 Body weight 73.[address] Jorge Bearden MD Work Phone: 9(493)815-608953 [place] [address] 08-13-2024 08:33-0500 Diastolic blood pressure 71 mm[Hg] Dr. Jorge Bearden MD Work Phone: 1(515)658-205753 [place] [address] 08-13-2024 08:33-0500 Systolic blood pressure 122 mm[Hg] Dr. Jorge Bearden MD Work Phone: [facility] 10-04-2023 17:37-0500 Body height 154.94 cm [facility] 10-04-2023 17:37-0500 Body mass index (BMI) [Ratio] 32.1 kg/m2 [facility] 10-04-2023 17:37-0500 Body temperature 97.6 [degF] [facility] 10-04-2023 17:37-0500 Body weight 77.29 kg [facility] 10-04-2023 17:37-0500 Diastolic blood pressure 70 mm[Hg] [facility] 10-04-2023 17:37-0500 Heart rate 64 /min [facility] 10-04-2023 17:37-0500 Respiratory rate 16 /min [facility] 10-04-2023 17:37-0500 SaO2% (BldA) [Mass fraction] 98 % [facility] 10-04-2023 17:37-0500 Systolic blood pressure 109 mm[Hg] [facility] 09-21-2023 20:50-0500 Body temperature 98.1 [degF] Jorge Bearden MD Work Phone: [facility] 09-21-2023 20:50-0500 Diastolic blood pressure 73 mm[Hg] Jorge Bearden MD Work Phone: [facility] 09-21-2023 20:50-0500 Heart rate 86 /min Jorge Bearden MD Work Phone: [facility] 09-21-2023 20:50-0500 Respiratory rate 16 /min Jorge Bearden MD Work Phone: [facility] 09-21-2023 20:50-0500 SaO2% (BldA) [Mass fraction] 97 % Jorge Bearden MD Work Phone: [facility] 09-21-2023 20:50-0500 Systolic blood pressure 112 mm[Hg] Jorge Bearden MD Work Phone: [facility] 09-21-2023 17:13-0500 Body height 154.9 cm Jorge Bearden MD Work Phone: [facility] 09-21-2023 17:13-0500 Body mass index (BMI) [Ratio] 30.23 kg/m2 Jorge Bearden MD Work Phone: [facility] 09-21-2023 17:13-0500 Body weight 72.58 kg Jorge Bearden MD Work Phone: [facility] 03-04-2023 08:53-0400 Body temperature 98.24 [degF] Jorge Bearden Other Phone: [facility] 03-04-2023 08:53-0400 Diastolic blood pressure 56 mm[Hg] Jorge Bearden Other Phone: [facility] 03-04-2023 08:53-0400 Heart rate 57 /min Jorge Bearden Other Phone: [facility] 03-04-2023 08:53-0400 Respiratory rate 16 /min Jorge Bearden Other Phone: [facility] 03-04-2023 08:53-0400 SaO2% (BldA) [Mass fraction] 99 % Jorge Bearden Other Phone: [facility] 03-04-2023 08:53-0400 Systolic blood pressure 96 mm[Hg] Jorge Bearden Other Phone: [facility] 02-04-2023 00:00-0400 Diastolic blood pressure 67 mm[Hg] Jorge Bearden Other Phone: [facility] 02-04-2023 00:00-0400 Heart rate 79 /min Jorge Bearden Other Phone: [facility] 02-04-2023 00:00-0400 Respiratory rate 18 /min Jorge Bearden Other Phone: [facility] 02-04-2023 00:00-0400 SaO2% (BldA) [Mass fraction] 100 % Jorge Bearden Other Phone: [facility] 02-04-2023 00:00-0400 Systolic blood pressure 101 mm[Hg] Jorge Bearden Other Phone: [facility] 02-03-2023 21:46-0400 Body height 154.9 cm Jorge Bearden Other Phone: [facility] 02-03-2023 21:46-0400 Body temperature 97.7 [degF] Jorge Bearden Other Phone: [facility] 02-03-2023 21:46-0400 Body weight 68.2 kg Jorge Bearden Other Phone: [facility] 01-16-2023 14:35-0400 Body height 154.[address] Jorge Bearden Work Phone: [facility] 01-16-2023 14:34-0400 Body mass index (BMI) [Percentile] Per age and sex 94.5 % Dr. Jorge Bearden Work Phone: [facility] 01-16-2023 14:34-0400 Body mass index (BMI) [Ratio] 30.8 kg/m2 Dr. Jorge Bearden Work Phone: [facility] 01-16-2023 14:34-0400 Body weight 74.[address] Jorge Bearden Work Phone: [facility] 01-16-2023 14:34-0400 Diastolic blood pressure 75 mm[Hg] Dr. Jorge Bearden Work Phone: [facility] 01-16-2023 14:34-0400 Systolic blood pressure 113 mm[Hg] Dr. Jorge Bearden Work Phone: [facility] 11-30-2022 07:35-0400 Body temperature 97.5 [degF] Iker Morrow MESSAGE BROKER DEVELOPER.LUMBER DRIVER Work Phone: [facility] 11-30-2022 07:35-0400 Body weight 73.66 kg Iker Morrow APRN.LUMBER DRIVER Work Phone: [facility] 11-30-2022 07:35-0400 Diastolic blood pressure 66 mm[Hg] Iker Morrow MESSAGE BROKER DEVELOPER.LUMBER DRIVER Work Phone: [facility] 11-30-2022 07:35-0400 Heart rate 62 /min Iker Morrow APRN.LUMBER DRIVER Work Phone: [facility] 11-30-2022 07:35-0400 Respiratory rate 18 /min Iker Morrow MESSAGE BROKER DEVELOPER.LUMBER DRIVER Work Phone: [facility] 11-30-2022 07:35-0400 SaO2% (BldA) [Mass fraction] 99 % Iker Morrow APRN.LUMBER DRIVER Work Phone: [facility] 11-30-2022 07:35-0400 Systolic blood pressure 102 mm[Hg] Iker Morrow MESSAGE BROKER DEVELOPER.LUMBER DRIVER Work Phone: [facility] 07-03-2022 18:23-0500 Body temperature 97.59 [degF] Barbara Ellison MESSAGE BROKER DEVELOPER.LUMBER DRIVER Work Phone: [facility] 07-03-2022 18:23-0500 Body weight 76.2 kg Barbara Ellison MESSAGE BROKER DEVELOPER.LUMBER DRIVER Work Phone: [facility] 07-03-2022 18:23-0500 Diastolic blood pressure 72 mm[Hg] Barbara Scot MESSAGE BROKER DEVELOPER.LUMBER DRIVER Work Phone: [facility] 07-03-2022 18:23-0500 Heart rate 80 /min Barbara Scot MESSAGE BROKER DEVELOPER.LUMBER DRIVER Work Phone: [facility] 07-03-2022 18:23-0500 Respiratory rate 16 /min Barbara Scot MESSAGE BROKER DEVELOPER.LUMBER DRIVER Work Phone: [facility] 07-03-2022 18:23-0500 SaO2% (BldA) [Mass fraction] 100 % Barbara Ellison MESSAGE BROKER DEVELOPER.LUMBER DRIVER Work Phone: [facility] 07-03-2022 18:23-0500 Systolic blood pressure 122 mm[Hg] Barbara Ellison APRN.LUMBER DRIVER Work Phone: [facility] 04-26-2022 13:31-0400 Body height 154.94 cm No Primary Care Physician [facility] Work Phone: 04-26-2022 13:29-0400 Body mass index (BMI) [Percentile] Per age and sex 95.3 % No Primary Care Physician [facility] Work Phone: 04-26-2022 13:29-0400 Body mass index (BMI) [Ratio] 31.1 kg/m2 No Primary Care Physician [facility] Work Phone: 04-26-2022 13:29-0400 Body weight 74.61 kg No Primary Care Physician [facility] Work Phone: 04-26-2022 13:29-0400 Diastolic blood pressure 69 mm[Hg] No Primary Care Physician [facility] Work Phone: 04-26-2022 13:29-0400 Systolic blood pressure 106 mm[Hg] No Primary Care Physician [facility] Work Phone: 03-26-2022 10:12-0400 Body mass index (BMI) [Percentile] Per age and sex 95.1 % No Primary Care Physician [facility] Work Phone: 03-26-2022 10:12-0400 Body mass index (BMI) [Ratio] 30.8 kg/m2 No Primary Care Physician [facility] Work Phone: 03-26-2022 10:12-0400 Body weight 73.93 kg No Primary Care Physician [facility] Work Phone: 03-26-2022 10:12-0400 Diastolic blood pressure 80 mm[Hg] No Primary Care Physician [facility] Work Phone: 03-26-2022 10:12-0400 Systolic blood pressure 122 mm[Hg] No Primary Care Physician [facility] Work Phone: 03-23-2022 08:06-0400 Body height 156 cm Jorge Bearden MD Work Phone: [facility] 03-23-2022 08:06-0400 Body mass index (BMI) [Percentile] Per age and sex 94.28 % Jorge Bearden MD Work Phone: [facility] 03-23-2022 08:06-0400 Body weight 73.03 kg Jorge Bearden MD Work Phone: [facility] 03-23-2022 08:06-0400 Diastolic blood pressure 78 mm[Hg] Jorge Bearden MD Work Phone: [facility] 03-23-2022 08:06-0400 Heart rate 66 /min Jorge Bearden MD Work Phone: [facility] 03-23-2022 08:06-0400 Systolic blood pressure 120 mm[Hg] Jorge Bearden MD Work Phone: [facility] 03-21-2022 08:09-0400 Body mass index (BMI) [Percentile] Per age and sex 95.1 % No Primary Care Physician [facility] Work Phone: 03-21-2022 08:09-0400 Body mass index (BMI) [Ratio] 30.8 kg/m2 No Primary Care Physician [facility] Work Phone: 03-21-2022 08:09-0400 Body weight 73.93 kg No Primary Care Physician [facility] Work Phone: 03-21-2022 08:09-0400 Diastolic blood pressure 80 mm[Hg] No Primary Care Physician [facility] Work Phone: 03-21-2022 08:09-0400 Systolic blood pressure 128 mm[Hg] No Primary Care Physician [facility] Work Phone: Encounters Encounter Date Encounter Type Care Provider Facility Start: 04-08-2025 End: 04-08-2025 ambulatory No Primary Care Physician Facility:[facility] Start: 04-08-2025 End: 04-08-2025 ambulatory Bernarda Weber Facility:[facility] Start: 04-01-2025 ambulatory No Primary Car e Physician Facility:[facility] Start: 03-26-2025 End: 03-26-2025 Patient encounter procedure Mario Morales [place] -[facility] Work Phone: Start: 03-26-2025 End: 03-26-[address] Jorge Bearden MD Work Phone: -[facility] Start: 03-26-2025 End: 03-26-2025 Patient encounter procedure Jenny GARCIA -[facility] Work Phone: Start: 03-26-2025 End: 03-26-[address] Jorge Bearden MD Work Phone: [facility] Start: 03-12-2025 End: 03-12-2025 Patient encounter procedure Jenny GARCIA -[facility] Work Phone: Start: 03-12-2025 End: 03-12-[address] Jorge Bearden MD Work Phone: [facility] Start: 03-01-2025 End: 03-01-[address] Lizet Sood DO -[facility] Work Phone: Start: 03-01-2025 End: 03-01-[address] Jorge Bearden MD Work Phone: [facility] Start: 02-23-2025 Non-patient / Non-visit Jenny Mejia CNM [facility] Start: 02-22-2025 Non-patient / Non-visit Bernarda Weber [facility] Start: 02-21-2025 Non-patient / Non-visit Dr. Alfredo Burns MD -[facility] Work Phone: Start: 02-20-2025 Non-patient / Non-visit Jenny Mejia CNM -[facility] Start: 02-20-2025 ambulatory Jenny Mejia Facilit y:[facility] Start: 02-20-2025 End: 02-23-2025 Evaluation and management of inpatient Dr. Alfredo Burns MD -[facility] Work Phone: Start: 02-17-2025 End: 02-17-2025 Patient encounter procedure Bernarda Weber CNM -[facility] @ Start: 02-17-2025 End: 02-17-[address] Jorge Bearden MD Work Phone: -[facility] Start: 02-12-2025 End: 02-12-[address] Mar Quigley MD -[facility] Work Phone: Start: 02-12-2025 End: 02-12-[address] Jorge Bearden MD Work Phone: -[facility] Start: 02-05-2025 End: 02-05-[address] Jorge Bearden MD Work Phone: [facility] Work Phone: Start: 02-05-2025 End: 02-05-2025 Patient encounter procedure Bernarda GARCIA -[facility] Work Phone: Start: 01-25-2025 End: 01-25-[address] Jorge Bearden MD Work Phone: [facility] Work Phone: Start: 01-25-2025 End: 01-25-[address] Lizet Sood DO -[facility] Work Phone: Start: 01-25-2025 End: 01-25-[address] Lizet Sood DO -[facility] Work Phone: Start: 01-25-2025 End: 01-25-[address] Jorge Bearden MD Work Phone: [facility] Work Phone: Start: 01-25-2025 End: 01-25-2025 ambulatory Lizet Sood Facility:[facility] Start: 01-14-2025 End: 01-14-2025 Patient encounter procedure Bernarda Weber [facility] -[facility] Work Phone: Start: 01-14-2025 End: 01-14-[address] Jorge Bearden MD Work Phone: [facility] Work Phone: Start: 12-28-2024 End: 12-28-2024 Patient encounter procedure Bernarda Weber [facility] Work Phone: Start: 12-28-2024 End: 12-28-2024 ambulatory Bernarda Weber Facility:[facility] Start: 12-21-2024 ambulatory Bernarda Weber Facility :[facility] Start: 12-21-2024 Non-patient / Non-visit Bernarda Weber [facility] Start: 12-20-2024 End: 12-20-2024 ambulatory Bernarda Lance Facility:[facility] Start: 12-20-2024 End: 12-20-2024 Patient encounter procedure Bernarda Weber [facility] Work Phone: Start: 12-18-2024 End: 12-18-[address] Mar Quigley MD -[facility] Work Phone: Start: 12-18-2024 End: 12-18-2024 ambulatory Mar Quigley Facility:[facility] Start: 12-01-2024 ambulatory Lizet Bowmanty:[facility] Start: 12-01-2024 Non-patient / Non-visit Dr. Lizet Sood DO [facility] Start: 12-01-2024 End: 12-01-[address] Jorge Bearden MD Work Phone: [facility] Work Phone: Start: 12-01-2024 End: 12-01-[address] Lizet Sood DO [facility] Work Phone: Start: 11-30-2024 End: 11-30-2024 Patient encounter procedure Benrarda Weber [facility] Work Phone: Start: 11-30-2024 End: 11-30-[address] Jorge Bearden MD Work Phone: [facility] Work Phone: Start: 11-30-2024 End: 11-30-2024 ambulatory Lizet Sood Facility:[facility] Start: 11-19-2024 End: 11-19-2024 Patient encounter procedure Bernarda Weber [facility] Work Phone: Start: 11-19-2024 End: 11-19-2024 ambulatory Bernarda Weber Facility:[facility] Start: 11-09-2024 End: 11-09-[address] Lizet Sood [facility] Work Phone: Start: 11-09-2024 End: 11-09-2024 ambulatory Lizet Sood Facility:[facility] Start: 10-12-2024 End: 10-12-2024 Emergency department patient visit GEORGE ROJAS [facility] Start: 10-11-2024 End: 10-11-2024 ambulatory Charlene Talavera RN NURSE ARCHITECTURAL ASSOCIATE Comment on above: Fever Start: 10-11-2024 End: 10-11-2024 Patient encounter procedure Iker Morrow APRN.LUMBER DRIVER Work Phone: [facility] Comment on above: Sore throat (Primary Dx); URI, acute Start: 10-08-2024 End: 10-08-2024 Patient encounter procedure Bernarda GARCIA -[facility] Start: 10-08-2024 End: 10-08-2024 ambulatory Bernarda Weber Facility:[facility] Start: 09-23-2024 End: 09-23-2024 ambulatory TANESHA [facility] Start: 09-11-2024 End: 09-11-2024 Patient encounter procedure Bernarda Weber CNM -[facility] Work Phone: Start: 09-11-2024 End: 09-11-2024 ambulatory Bernarda Weber Facility:[facility] Start: 08-24-2024 End: 08-24-[address] Mar Quigley MD -[facility] Work Phone: Start: 08-24-2024 End: 08-24-2024 ambulatory Mar Quigley Facility:[facility] Start: 2024 End: 2024 Emergency department patient visit Dr. Jonathon Vines MD -Emergency Department Work Phone: Start: 08-13-2024 End: 08-13-2024 Patient encounter procedure Jolene Lamar NUISANCE [employer]IM[employer] DAMAGE CONTROL AGENT-C -[facility] Work Phone: Start: 08-13-2024 End: 08-13-2024 ambulatory Jolene [place] [employer]ISANCE ANIMAL DAMAGE CONTROL AGENT Facility:[facility] Start: 08-13-2024 End: 08-13-2024 ambulatory Jolene Mabrys [employer]ISANCE ANIMAL DAMAGE CONTROL AGENT Facility:[facility] Start: 07-15-2024 End: 07-15-2024 ambulatory Bernarda Weber Facility:[facility] Start: 07-15-2024 End: 07-15-2024 ambulatory Bernarda Weber Facility:[facility] Start: 04-27-2024 End: 04-27-2024 ambulatory Jolene Willard [employer]IS[employer]IMAL DAMAGE CONTROL AGENT Facility:[facility] Start: 04-27-2024 End: 04-27-2024 ambulatory Jolene [place] [employer]ISANCE ANIMAL DAMAGE CONTROL AGENT Facility:[facility] Start: 10-04-2023 End: 10-04-2023 Emergency department patient visit [facility]-Emergency Department Work Phone: Start: 09-21-2023 End: 09-21-2023 Emergency department patient visit [facility] Start: 09-21-2023 End: 09-21-2023 Emergency department patient visit Jorge Bearden MD Work Phone: [facility] Comment on above: Bipolar depression ( [facility]/HCC) (Primary Dx) Start: 07-30-2023 Telephone encounter Lizet Carter ana [facility] Work Phone: Psychology Comment on above: bh consult Start: 03-03-2023 End: 03-04-2023 Emergency department patient visit Philip Ren [facility] Emergency 16 Start: 02-03-2023 End: 02-04-2023 Emergency department patient visit Feroz Armendariz Juan [facility] Emergency 01 Start: 01-23-2023 Telephone encounter Jorge lui MD Work Phone: Internal Medicine [place] Comment on above: Vaginal Bleeding Start: 01-21-2023 ambulatory Deb Awad RN NURSE ARCHITECTURAL ASSOCIATE Comment on above: Vaginal Bleeding Start: 01-18-2023 End: 01-18-[address] Jorge Bearden Work Phone: [facility] Work Phone: Start: 01-18-2023 End: 01-18-[address] Jorge Bearden Work Phone: [facility]-Ultrasound, [facility] Start: 01-16-2023 End: 01-16-[address] Jorge Bearden Work Phone: [facility] Work Phone: Start: 01-16-2023 End: 01-16-[address] Jorge Bearden Work Phone: [facility]-Laboratory Start: 01-16-2023 End: 01-16-[address] Jorge Bearden Work Phone: [facility] Start: 11-30-2022 End: 11-30-2022 Patient encounter procedure Iker Morrow APRN.LUMBER DRIVER Work Phone: [facility] Comment on above: Rash (Primary Dx) Start: 07-03-2022 End: 07-03-2022 Patient encounter procedure Barbara Ellison APRN.LUMBER DRIVER Work Phone: [facility] Comment on above: URI with cough and c ongestion (Primary Dx) Start: 04-26-2022 End: 04-26-2022 ambulatory No Primary Care Physician [facility] Work Phone: Start: 04-26-2022 End: 04-26-2022 Patient encounter procedure No Primary Care Physician [facility]-Laboratory, Specimen Start: 04-26-2022 End: 04-26-2022 Patient encounter procedure No Primary Care Physician [facility] Start: 03-29-2022 End: 03-29-2022 Patient encounter procedure No Primary Care Physician [facility] Start: 03-23-2022 End: 03-23-2022 Patient encounter procedure Jorge Bearden MD Work Phone: Internal Medicine [place] Comment on above: Anxiety and depressi on (Primary Dx); Chronic tension-type headache, not intractable; Atrophy of skin and soft tissue; Breakthrough bleeding Start: 03-21-2022 End: 03-21-2022 Patient encounter procedure No Primary Care Physician [facility]-Laboratory, Specimen Start: 03-21-2022 End: 03-21-2022 Patient encounter procedure No Primary [facility] Physician [facility] Procedures Date Procedure Procedure Detail Performing Clinician Start: 02-20-2025 Serologic test for syphilis Dr. Jorge Bearden MD Work Phone: Start: 02-20-2025 Measurement of pH in vaginal fluid specimen using nitrazine yellow for detection of rupture of amniotic membrane Dr. Jorge Bearden MD Work Phone: Comment on above: Amniotic fluid not p resent indicates No Rupture of FetalMembranes at time of specimen collection. Start: 01-25-2025 Beta-hemolytic Streptococcus culture Dr. Jorge [...] Work Phone: Start: 12-20-[address] Sadia Bearden MD Work Phone: Start: 12-01-[address] Jorge Bearden MD Work Phone: Start: 12-01-2024 Urnls dip stick/tabl et reagent auto microscopy Dr. Jorge Bearden MD Work Phone: Start: 12-01-[address] Sadia Bearden MD Work Phone: Start: 11-30-2024 Serologic test for syphilis Dr. Jorge Bearden MD Work Phone: Start: 10-11-2024 STREP A MOLECULAR (POC) Iker Morrow APRN.LUMBER DRIVER Work Phone: Start: 09-21-2023 DRUG SCREEN,URINE SADIA [facility]ARDEN Start: [...] instr mnt chem analyzers pr date Tanesha Guevara PA-C Work Phone: Start: 09-21-2023 ACUTE TOXICOLOGY IZQUIERDO EL, BLOOD Tanesha Guevara PA-C Work Phone: Start: 09-21-2023 Comprehensive metabo lic panel Tanesha Guevara PA-C Work Phone: Start: 09-21-2023 End: 09-21-2023 Urnls dip stick/tablet rgnt auto w/o microscopy Tanesha Guevara PA-C Work Phone: Start: 03-03-2023 End: 03-03-2023 Gas panel - Arterial blood Philip Ruvalcaba And ersen Start: 03-03-2023 End: 03-03-2023 EKG impression Philip [...] 2) Zoste r Vaccines (1 of 2) [facility] Start: 04-12-2031 DTaP/Tdap/Td Vaccine s (7 - Td or Tdap) DTaP/Tdap/Td Vaccines (7 - Td or Tdap) [facility] Start: 04-12-2031 Urine microalbumin profile [facility] Start: 05-13-2025 ambulatory Facility:[facility] Start: 02-23-2025 Patient discharge [place] Start: 02-22-2025 End: 02-22-2025 [facility] Start: 02-22-2025 Application of abdom inal corset [facility] Start: 02-21-2025 End: 02-21-2025 Notification of physician [facility] Start: 02-21-2025 Vital signs measurements [facility] Start: 02-21-2025 End: 02-21-2025 [facility] Start: 02-21-2025 Administration of medication [facility] Start: 02-21-2025 Ambulation therapy management [facility] Start: 02-21-2025 Application of device [facility] Start: 02-21-2025 Application of inter mittent pneumatic compression device [facility] Start: 02-21-2025 Assessment of risk o f venous thromboembolism [facility] Start: 02-21-2025 Catheterization of vein [facility] Start: 02-21-2025 Deep breathing and c oughing exercises [facility] Start: 02-21-2025 Exercises [facility] Start: 02-21-2025 Introduction of urin pat catheter [facility] Start: 02-21-2025 Measuring intake and output [facility] Start: 02-21-2025 Notification of physician [facility] Start: 02-21-2025 Procedure discontinued [facility] Start: 02-21-2025 Provision of activit y privileges [facility] Start: 02-21-2025 Skin care [facility] Start: 02-21-2025 Vital signs measurements [facility] Start: 02-21-2025 Wound care [facility] Start: 02-21-2025 [facility] Start: 02-21-2025 Application of abdom inal corset [facility] Start: 02-21-2025 Consultation [facility] Start: 02-20-2025 [facility] Start: 02-20-2025 Admission procedure [facility] Start: 01-25-2025 Group B Streptococcu s Culture Group B Streptococcus Culture [facility] Start: 01-25-2025 Streptococcus agalac tiae [Presence] in Unspecified specimen by Organism specific culture [facility] Start: 12-20-2024 Nonstress test [facility] Start: 12-20-2024 Obstetric monitoring [facility] Start: 12-20-2024 [facility] Start: 12-20-2024 Vital signs measurements [facility] Start: 12-01-2024 Nonstress test [facility] Start: 12-01-2024 End: 12-01-2024 [facility] Start: 12-01-2024 Insertion of cathete r into peripheral vein [facility] Start: 12-01-2024 Obstetric monitoring [facility] Start: 12-01-2024 Vital signs measurements [facility] Start: 12-01-2024 Bacteria identified in Urine by Culture Urine Culture [facility] Start: 12-01-2024 Iv infusion hydratio n each additional hour HYDRATE IV INFUSION ADD-ON [facility] Start: 12-01-2024 Ther proph/dx njx iv push single/1st sbst/drug THER/PROPH/DIAG INJ IV PUSH [facility] Start: 12-01-2024 Patient discharge [place] Start: 2024 Screening for malign ant neoplasm of cervix Cervical Cancer Screening [facility] Start: 2024 [facility] Start: 07-29-2024 Covid-19 Vaccine (#1) Covid-19 Vacci ne (#1) [facility] Comment on above: Postponed from 02/19 (Declined at this time) Start: 04-19-2024 Covid-19 Vaccine ( season) Covid-19 Vaccine () [facility] Start: 04-19-2024 Influenza vaccination Influenza Vacc ine (#1) [facility] Start: 02-16-2024 Influenza vaccination Influenza Vacc ine (#1) [facility] Comment on above: Postponed from 04/19 (Declined at this time) Start: 01-17-2024 GC (Gonorrhea) Scree ezequiel (18-24) GC (Gonorrhea) Screening (18-24) [facility] Start: 01-17-2024 Screening for Chlamy racquel trachomatis Chlamydia Screening (18-24) [facility] Start: 04-19-2023 Influenza vaccination Influenza Vacc ine (#1) [facility] Start: 03-23-2023 Adult depression scr eening assessment DEPRESSION SCREENING [facility] Start: 03-23-2023 COVID-19 VACCINE (#1) COVID-19 VACCI NE (#1) [facility] Comment on above: Postponed from 02/19 (Declined at this time) Start: 03-21-2023 CHLAMYDIA SCREENING (18-24) CH LAMYDIA SCREENING (18-24) [facility] Start: 07-03-2022 End: 07-17-2022 Influenza virus A and B RNA and SARS-CoV-2 (COVID-19) N gene panel - Respiratory specimen by PAULA with probe detection COVID WITH FLUA+B, ROUTINE Microbiology Routine URI with cough and congestion Expected: 07/03/2022, Expires: 07/17/2022 [facility] Work Phone: Comment on above: Expected: 07/03/2022 , Expires: 07/17/2022 Start: 04-19-2022 Influenza vaccination INFLUENZA (#1) [facility] Start: 03-24-2022 GC (GONORRHEA) SCREE EZEQUIEL (18-24) GC (GONORRHEA) SCREENING (18-24) [facility] Start: 03-23-2022 End: 05-23-2022 CBC panel - Blood by Automated count [facility] Work Phone: Comment on above: Expected: 03/23/2022 , Expires: 05/23/2022 Start: 03-23-2022 End: 05-23-2022 Comprehensive metabolic 2000 panel - Serum or Plasma [facility] Work Phone: Comment on above: Expected: 03/23/2022 , Expires: 05/23/2022 Start: 10-13-2021 Hepatitis A Vaccines (2 of 2 - 2-dose series) Hepatitis A Vaccines (2 of 2 - 2-dose series) [facility] Start: 10-13-2021 HPV VACCINE (3 - 3-d ose series) HPV VACCINE (3 - 3-dose series) [facility] Start: 2021 Hepatitis C screening Hepatitis C [facility] Start: 2017 PEDS TO ADULT TRANSI TION ANNUAL ASSESSMENT PEDS TO ADULT TRANSITION ANNUAL ASSESSMENT [facility] Start: 2015 PEDS TO ADULT TRANSI TION INITIAL DISCUSSION PEDS TO ADULT TRANSITION INITIAL DISCUSSION [facility] Start: 2006 Well Child Visit (WC V) - Annual Well Child Visit (WCV) - Annual [facility] Start: 02-20-2004 COVID-19 Vaccine (#1) COVID-19 Vacci ne (#1) [facility] Start: 2003 Hearing Screening (#1) Hearing Scree ezequiel (#1) [facility] Start: 2003 HIV screening HIV Screening [facility] Start: 2003 Lipid panel Lipid Panel [facility] Beta-hemolytic Streptococcus culture [facility] Choriogonadotropin ( test) [Presence] in Serum or Plasma [facility] COVID & INFLUENZA A/ B & RSV PCR, ROUTINE COVID & INFLUENZA A/B & RSV PCR, ROUTINE Microbiology Routine URI, acute Ordered: 10/11/2024 [facility] Comment on above: Ordered: 10/11/2024 End: 09-21-2023 Extra Urine [facility] Extra Urine [facility] Lab Timed Once for 1 Occurrences starting 09/21/2023 until 09/21/2023 [facility] Work Phone: Comment on above: Once for 1 Occurrenc es starting 09/21/2023 until 09/21/2023 In-vitro immunologic test [facility] INFLUENZA A&B MOLECU LAR (POC) INFLUENZA A&B MOLECULAR (POC) Microbiology Routine URI, acute Ordered: 10/11/2024 [facility] Work Phone: Comment on above: Ordered: 10/11/2024 Patient Education [facility] Work Phone: Patient referral [facility] Work Phone: Streptococcus agalac tiae [Presence] in Unspecified specimen by Organism specific culture [facility] End: 09-21-2023 Urinalysis complete W Reflex Culture panel - Urine [facility] Service Area Work Phone: Comment on above: STAT (Lab) for 1 Occ urrences starting 09/21/2023 until 09/21/2023 Urine culture [facility] US Pelvis [facility] Work Phone: US Pelvis transvaginal [place] Work Phone: [facility] Immunizations Immunization Date Immunization Notes Care Provider [place] 04-24-2022 Human Papillomavirus 9-valent vaccine Barbara Ellison APRN.LUMBER DRIVER Work Phone: [place] [id number] influenza, injectabl e, quadrivalent, contains preservative Barbara Ellison APRN.LUMBER DRIVER Work Phone: [facility] 04-24-2022 influenza virus vacc ine, unspecified formulation Lizet Mcfadden [facility] Work Phone: [facility] 05-15-2021 Human Papillomavirus 9-valent vaccine Jorge Bearden MD Work Phone: [facility] Work Phone: 05-15-2021 influenza, injectabl e, quadrivalent, preservative free Jorge Bearden MD Work Phone: [facility] Work Phone: 05-15-2021 meningococcal B vacc ine, recombinant, OMV, adjuvanted Jorge Bearden MD Work Phone: [facility] Work Phone: 04-12-2021 hepatitis A vaccine, pediatric/adolescent dosage, 2 dose schedule Jorge Bearden MD Work Phone: [facility] Work Phone: 04-12-2021 Human Papillomavirus 9-valent vaccine Jorge Bearden MD Work Phone: [facility] Work Phone: 04-12-2021 meningococcal B vacc ine, recombinant, OMV, adjuvanted Jorge Bearden MD Work Phone: [facility] Work Phone: 04-12-2021 meningococcal polysaccharide (groups A, C, Y and W-135) diphtheria toxoid conjugate vaccine (MCV4P) Jorge Bearden MD Work Phone: [facility] Work Phone: 04-12-2021 tetanus toxoid, redu yaya diphtheria toxoid, and acellular pertussis vaccine, adsorbed Jorge Bearden MD Work Phone: [facility] Work Phone: 04-12-2021 hepatitis A and hepatitis B vaccine Jorge Bearden MD Work Phone: [facility] Work Phone: 04-13-2009 diphtheria, tetanus toxoids and acellular pertussis vaccine, unspecified formulation Jorge Bearden MD Work Phone: [facility] Work Phone: 04-13-2009 measles, mumps and rubella virus vaccine Jorge Bearden MD Work Phone: [facility] Work Phone: 04-13-2009 poliovirus vaccine, inactivated Jorge Bearden MD Work Phone: [facility] Work Phone: 04-13-2009 varicella virus vaccine Vict annette Bearden MD Work Phone: [facility] Work Phone: 06-17-2006 influenza nasal, unspecified formulation Jorge Bearden MD Work Phone: [facility] Work Phone: 11-28-2004 diphtheria, tetanus toxoids and acellular pertussis vaccine, unspecified formulation Jorge Bearden MD Work Phone: [facility] Work Phone: 11-28-2004 haemophilus influenz ae type b conjugate and Hepatitis B vaccine Jorge Bearden MD Work Phone: [facility] Work Phone: 11-28-2004 pneumococcal conjuga te vaccine, 7 valent Jorge Bearden MD Work Phone: [facility] Work Phone: 11-28-2004 poliovirus vaccine, inactivated Jorge Bearden MD Work Phone: [facility] Work Phone: 10-19-2004 influenza virus vacc ine, whole virus Jorge Bearden MD Work Phone: [facility] Work Phone: 10-19-2004 measles, mumps and rubella virus vaccine Jorge Bearden MD Work Phone: [facility] Work Phone: 10-19-2004 varicella virus vaccine Vict annette Bearden MD Work Phone: [facility] Work Phone: 03-23-2004 diphtheria, tetanus toxoids and acellular pertussis vaccine, unspecified formulation Jorge Bearden MD Work Phone: [facility] Work Phone: 03-23-2004 haemophilus influenz ae type b vaccine, PRP-T conjugate Jorge Bearden MD Work Phone: [facility] Work Phone: 03-23-2004 pneumococcal conjuga te vaccine, 7 valent Jorge Bearden MD Work Phone: [facility] Work Phone: 2003 diphtheria, tetanus toxoids and acellular pertussis vaccine, unspecified formulation Jorge Bearden MD Work Phone: [facility] Work Phone: 2003 haemophilus influenz ae type b vaccine, PRP-T conjugate Jorge Bearden MD Work Phone: [facility] Work Phone: 2003 pneumococcal conjuga te vaccine, 7 valent Jorge Bearden MD Work Phone: [facility] Work Phone: 2003 poliovirus vaccine, inactivated Jorge Bearden MD Work Phone: [facility] Work Phone: 2003 diphtheria, tetanus toxoids and acellular pertussis vaccine, unspecified formulation Jroge Bearden MD Work Phone: [facility] Work Phone: 2003 haemophilus influenz ae type b conjugate and Hepatitis B vaccine Jorge Bearden MD Work Phone: [facility] Work Phone: 2003 haemophilus influenz ae type b vaccine, PRP-T conjugate Jorge Bearden MD Work Phone: [facility] Work Phone: 2003 hepatitis B vaccine, pediatric or pediatric/adolescent dosage Jorge Bearden MD Work Phone: [facility] Work Phone: 2003 pneumococcal conjuga te vaccine, 7 valent Jorge Bearden MD Work Phone: [facility] Work Phone: 2003 poliovirus vaccine, inactivated Jorge Bearden MD Work Phone: [facility] Work Phone: 2003 hepatitis B vaccine, pediatric or pediatric/adolescent dosage Jorge Bearden MD Work Phone: [facility] Work Phone: Payers Date Payer Category Payer Medicaid [id number] 2024 Unknown [id number] 2024 Self-pay [id number] 2019 Unknown [employer] BLUE CARD PPO OOS [id number] 2019-Present [phone] [address] [place] [address] PPO [id number] 2019 Unknown [id number] 2019 Unknown [id number] [id number] [id number] 2003 Unknown [id number] 2.16.840.1.141731.3.579.2.1069 2003 Unknown [id number] 2.16.840.1.940323.3.579.2.1069 2003 Unknown [id number] 2.16.840.1.514698.3.579.2.1243 2003 Unknown [id number] 2.16.840.1.805881.3.579.2.479 2003 Unknown [id number] 2..840.1.120906.3.579.2.651 Unknown [id number] Unknown [id number] Unknown [id number] 2.840.1.622113.3.579.2.462 Unknown [id number] 2.840.1.996018.3.579.2.462 Unknown [id number] 2.840.1.594575.3.579.2.462 Unknown [id number] 2..840.1.947722.3.579.2.462 Unknown [id number] 2..840.1.394069.3.579.2.462 Unknown [id number] 2.16.840.1.956756.3.579.2.462 Unknown [id number] 2.16840.1.987310.3.579.2.462 Unknown [id number] 2.840.1.927459.3.579.2.462 Unknown [id number] 2.16.840.1.287499.3.579.2.462 Unknown [id number] 2.16.840.1.997124.3.579.2.462 Unknown [id number] 2.16.840.1.346900.3.579.2.462 Unknown [id number] 2.16.840.1.680736.3.579.2.462 Unknown [id number] 2.840.1.380971.3.579.2.462 Unknown [id number] 2.16.840.1.658648.3.579.2.462 Unknown [id number] 2.16.840.1.016071.3.579.2.462 Unknown [id number] 2.16.840.1.392621.3.579.2.462 Unknown [id number] 2.16.840.1.522516.3.579.2.462 Unknown [id number] 2.16.840.1.305350.3.579.2.462 Unknown [id number] 2.16.840.1.004613.3.579.2.462 Unknown [id number] 2.16.840.1.464289.3.579.2.462 Unknown [id number] 2.16.840.1.056940.3.579.2.462 Unknown [id number] 2.840.1.598575.3.579.2.462 Unknown [id number] 2.16840.1.793638.3.579.2.462 Unknown [id number] 2.840.1.717359.3.579.2.462 Unknown [id number] 2.16.840.1.878783.3.579.2.462 Unknown [id number] 2.16840.1.613989.3.579.2.462 Unknown [id number] 2.16.840.1.555590.3.579.2.462 Unknown [id number] 2.16.840.1.721504.3.579.2.462 Unknown [id number] 2.16.840.1.069601.3.579.2.462 Unknown [id number] 2.16.840.1.685115.3.579.2.462 Unknown [id number] 2.16.840.1.254683.3.579.2.462 Unknown [id number] 2.16.840.1.854391.3.579.2.462 Unknown [id number] 2.16.840.1.056572.3.579.2.462 Unknown [id number] 2.16.840.1.775448.3.579.2.462 Unknown [id number] 2.16.840.1.543746.3.579.2.462 Unknown [id number] 2.16.840.1.258007.3.579.2.462 Unknown [id number] 2.16.840.1.280570.3.579.2.462 Unknown [id number] 2.16.840.1.008571.3.579.2.462 Unknown [id number] 2.16.840.1.449580.3.579.2.462 Unknown [id number] Social History Date Type Detail Facility Start: 03-23-2022 End: 07-03-2022 Tobacco smoking status NHIS Never smoked tobacco [facility] Start: 03-23-2022 End: 07-03-2022 Tobacco use and exposure Smokeless tobacco non-user [facility] Start: 03-23-2022 End: 10-11-2024 Alcohol intake Ex-drinker (finding) [facility] Start: 03-23-2022 History SDOH Alcohol Frequency 1 [facility] Start: 2003 Sex Assigned At Not on file [facility] Start: 03-13-2022 End: 09-21-2023 Exposure to SARS-CoV-2 (event) Not sure [facility] Start: 03-26-2022 End: 01-16-2023 Tobacco smoking status NHIS Unknown if ever smoked [facility] Start: 12-28-2019 With Family [facility] Start: 2005 Sex Assigned At Female [facility] Start: 03-23-2022 End: 08-05-2023 History of Social function [facility] jonathan Work Phone: Start: 03-23-2022 End: 08-05-2023 Alcohol Use Disorder Identification Test - Consumption [AUDIT-C] [facility] Work Phone: How often to you hav e a drink containing alcohol? Never [facility] Work Phone: Average Number of Drinks Not on file [facility] Start: 03-24-2022 Gender identity Identifies as female gender (finding) [facility] Start: 03-24-2022 Sexual orientation Heterosexual (finding) [facility] Start: 06-01-2024 [facility] Start: 2024 End: 03-26-2025 Tobacco smoking status NHIS Ex-smoker (finding) [facility] Start: 12-01-2024 End: 12-02-2024 Sex Female (finding) [facility] Goals Date Patient Goal Desired Activity /State Mental Status Date Assessment Result Facility 02-21-2025 Cognitive function Level Of Cons ciousness Awake;Alert;Appropriate;Follow s Commands [facility] Work Phone: 02-21-2025 Cognitive function Arousable To Voice/Nam e [facility] Work Phone: Clinical Notes 03-23-2022 to 03-12-2025 Note Date & Type Note Facility 03-12-2025 Progress note [facility] 02-23-2025 Discharge summary Note Date/Time February 23, 2025 8:09[facility] Medical Records Department [address] [place] [address] Discharge Summary 02/23/25 0807 MR#: [id number] Acct: [id number] Name: ERIKA PINEDA DOUGLAS Rep #:[id number] : 2005 19 From: Jenny Mejia CNM PCP: Status:ADM IN Location: [id number] Providers Date of Admission: 02/20/25 Reason For Visit: C SECTION Diagnosis Discharge Diagnosis (1) delivery delivered: Status: Acute Code(s): O82 - Encounter for delivery without indication (2) Anxiety: Status: Acute Code(s): F41.9 - Anxiety disorder, unspecified Plan s/p LTCS PPD # 2 1. routine post care 2. breast feeding- support given 3. rh positive 4. rubella immune 5. d/c home today Medications at Discharge Home Medications ondansetron 4 mg disintegrating tablet 4 mg PO Q6H PRN nausea and vomiting #30 tabs 12/01/24 Hospital Course Operations section Summary of Care Provided Hospital Course: s/p c/s for distress. normal course. stable for d/c home. Physical Exam Const alert, oriented x3 and no apparent distress Neck full ROM Resp normal respiratory effort, normal air movement and no retractions Effort and Inspection: able to speak in complete sentences and symmetric chest movement GI soft to palpation Inspection: incision intact Bladder / Kidney Exam: bladder normal to palpation Uterus Palpation: uterus fundus firm Extremity normal to inspection and full ROM Skin Skin Narrative: dressing intact. marked drainage, no further Psych mental status grossly normal, thought process normal and cooperative Weight / BMI Weight Weight: 189 lb 3.2 oz Body Mass Index (BMI) 35.7 ABG / Lab / Microbiology Data 02/22/25 06:50 D/C Instructions Discharge Diet: No restrictions Discharge Activity: May Not Drive and May Shower May resume sexual activity in: 6 weeks Weight Bearing Status: Full weight bearing Call your doctor if your incision/area has: Sudden Increased Bleeding, IncreasedPain/ Swelling and Foul Smelling Discharge Call your doctor if you observe: Fever of 101 or Higher, Numbness or Tingling, Change in Color, Inability to urinate, Inability to have a bowel movement, Usingmore than 1 pad per hour, Shortness of breath, Dizziness, Fainting spells, Chestpain, Calf discomfort and Uncontrolled pain Remove Dressing in: 1 week DC O2, CPAP, BIPAP Needs Home O2 Discharge instructions: No Please Follow Up With: Jenny Mejia CNM When: 6 weeks , please call office to make an appointment. Congratulations on the of your baby! Meaningful Use Info Meaningful Use Meaningful Use Diagnoses (Choose all that apply): None applicable Ischemic Stroke Statin Dosing Therapy Reference: STATIN DOSE THERAPY REFERENCE: * Patients > 75 years receive moderate or high dose statin therapy. * Patients 75 years or YOUNGER should receive HIGH intensity statin dose unless contraindicated. You will be required to document reason for non-treatment if statin daily dose does not meet guidelines. HIGH DOSE STATIN THERAPY DAILY Atorvastatin > than or = to 40 mg Rosuvastatin > than or = to 20 mg Amlodipine + Atorvastatin > than or = to 2.5/40 mg Ezetimibe + Simvastatin 10/80 mg Simvastatin 80mg Discharge Plan Admission Admit Date/Time: 02/20/25 15:17 Attending Provider: Alfredo Burns Discharge Orders/Prescriptions Prescriptions: No Action ondansetron 4 mg tablet,disintegrating 4 mg PO Q6H PRN (Reason: nausea and vomiting) Qty: 30 3RF Disposition Disposition (needs filled in before D/C Order can be placed): Home, Self Care 02/23/25 0809 <Electronically signed by Jenny Mejia CNM> Cosigner Signature (if applicable): CC: MANINDER Mejia~ Signed [facility] Work Phone: 1(138) 849-456107-08-2025 Progress note Author Jenny Mejia [facility] Note Date/Time February 23, 2025 8:07a m [facility] Medical Records Department [address] [place] [address] Progress Note - OBGYN 02/23/25805 MR#: [id number] Acct: [id number] Name: ERIKA PINEDA DOUGLAS Rep #:[id number] : 2005 19 From: Jenny Mejia CNM PCP: Status:ADM IN Location: [id number] Objective Data Objective Data Vital Signs: Vital Signs Temp Pulse Resp BP Pulse Ox O2 Del Method O2 Flow Rate 97.7 F L 63 18 93/48 L 100 Room Air 2 02/23/25 02:39 02/23/25 02:39 02/23/25 02:39 02/23/25 02:39 02/23/25 02:39 02/23/25 02:39 02/21/25 05:32 Oxygen Flow Rate (L/min) 2 Oxygen Delivery Method Room Air Weight: 189 lb 3.2 oz Body Mass Index (BMI) 35.7 Intake & Output: Intake and Output for Last 24 Hours 02/21/25 02/22/25 02/23/25 23:59 23:59 23:59 Intake Total 1252.55 / 1252.55 Output Total 4150 / 4150 Balance -2897.45 / -2897.45 Lab / Micro Data 02/22/25 06:50 Physical Exam Const alert, oriented x3 and no apparent distress Neck full ROM Resp normal respiratory effort, normal air movement and no retractions Effort and Inspection: able to speak in complete sentences and symmetric chest movement GI soft to palpation Inspection: incision intact Bladder / Kidney Exam: bladder normal to palpation Uterus Palpation: uterus fundus firm Extremity normal to inspection and full ROM Skin Skin Narrative: dressing intact. marked drainage, no further Psych mental status grossly normal, thought process normal and cooperative Assessment & Plan (1) delivery delivered: COMMENT: JW/LC girl (2) Anxiety: COMMENT: no meds, no counseling, doing well overall. wellbutrin in past. PLAN: Plan s/p LTCS PPD # 2 1. routine post care 2. breast feeding- support given 3. rh positive 4. rubella immune 5. d/c home today 02/23/25806 <Electronically signed by Jenny Mejia CNM> Cosigner Signature (if applicable): CC: ~ Signed [facility] Work Phone: 1(789) 703-769107-08-2025 Discharge summary [facility] Medical Records Department [address] [place] [address] Discharge Summary 02/23/25806 MR#: [id number] Acct: [id number] Name: ERIKA PINEDA Rep #:[id number] : 2005 19 From: Jenny Mejia CNM PCP: Status:ADM IN Location: [id number] Providers Date of Admission: 02/20/25 Reason For Visit: C SECTION Diagnosis Discharge Diagnosis (1) delivery delivered: Status: Acute Code(s): O82 - Encounter for delivery without indication (2) Anxiety: Status: Acute Code(s): F41.9 - Anxiety disorder, unspecified Plan s/p LTCS PPD # 2 1. routine post care 2. breast feeding- support given 3. rh positive 4. rubella immune 5. d/c home today Medications at Discharge Home Medications ondansetron 4 mg disintegrating tablet 4 mg PO Q6H PRN nausea and vomiting #30 tabs 12/01/24 Hospital Course Operations section Summary of Care Provided Hospital Course: s/p c/s for distress. normal course. stable for d/c home. Physical Exam Const alert, oriented x3 and no apparent distress Neck full ROM Resp normal respiratory effort, normal air movement and no retractions Effort and Inspection: able to speak in complete sentences and symmetric chest movement GI soft to palpation Inspection: incision intact Bladder / Kidney Exam: bladder normal to palpation Uterus Palpation: uterus fundus firm Extremity normal to inspection and full ROM Skin Skin Narrative: dressing intact. marked drainage, no further Psych mental status grossly normal, thought process normal and cooperative Weight / BMI Weight Weight: 189 lb 3.2 oz Body Mass Index (BMI) 35.7 ABG / Lab / Microbiology Data 02/22/25 06:50 D/C Instructions Discharge Diet: No restrictions Discharge Activity: May Not Drive and May Shower May resume sexual activity in: 6 weeks Weight Bearing Status: Full weight bearing Call your doctor if your incision/area has: Sudden Increased Bleeding, IncreasedPain/ Swelling and Foul Smelling Discharge Call your doctor if you observe: Fever of 101 or Higher, Numbness or Tingling, Change in Color, Inability to urinate, Inability to have a bowel movement, Usingmore than 1 pad per hour, Shortness of breath, Dizziness, Fainting spells, Chestpain, Calf discomfort and Uncontrolled pain Remove Dressing in: 1 week DC O2, CPAP, BIPAP Needs Home O2 Discharge instructions: No Please Follow Up With: Jenny Mejia CNM When: 6 weeks , please call office to make an appointment. Congratulations on the of your baby! Meaningful Use Info Meaningful Use Meaningful Use Diagnoses (Choose all that apply): None applicable Ischemic Stroke Statin Dosing Therapy Reference: STATIN DOSE THERAPY REFERENCE: * Patients > 75 years receive moderate or high dose statin therapy. * Patients 75 years or YOUNGER should receive HIGH intensity statin dose unless contraindicated. You will be required to document reason for non-treatment if statin daily dose does not meet guidelines. HIGH DOSE STATIN THERAPY DAILY Atorvastatin > than or = to 40 mg Rosuvastatin > than or = to 20 mg Amlodipine + Atorvastatin > than or = to 2.5/40 mg Ezetimibe + Simvastatin 10/80 mg Simvastatin 80mg Discharge Plan Admission Admit Date/Time: 02/20/25 15:17 Attending Provider: Alfredo Burns Discharge Orders/Prescriptions Prescriptions: No Action ondansetron 4 mg tablet,disintegrating 4 mg PO Q6H PRN (Reason: nausea and vomiting) Qty: 30 3RF Disposition Disposition (needs filled in before D/C Order can be placed): Home, Self Care 02/23/25 0809 Cosigner Signature (if applicable): CC: MANINDER Mejia~ Signed [facility]07[facility]08[facility] note [facility] Medical Records Department [address] [place] [address] Progress Note - OBGYN 02/23/25 08 MR#: [id number] Acct: [id number] Name: ERIKA PINEDA Rep #:[id number] : 2005 19 From: Jenny Mejia CNM PCP: Status:ADM IN Location: [id number] Objective Data Objective Data Vital Signs: Vital Signs Temp Pulse Resp BP Pulse Ox O2 Del Method O2 Flow Rate 97.7 F L 63 18 93/48 L 100 Room Air 2 02/23/25 02:39 02/23/25 02:39 02/23/25 02:39 02/23/25 02:39 02/23/25 02:39 02/23/25 02:39 02/21/25 05:32 Oxygen Flow Rate (L/min) 2 Oxygen Delivery Method Room Air Weight: 189 lb 3.2 oz Body Mass Index (BMI) 35.7 Intake & Output: Intake and Output for Last 24 Hours 02/21/25 02/22/25 02/23/25 23:59 23:59 23:59 Intake Total 1252.55 / 1252.55 Output Total 4150 / 4150 Balance -2897.45 / -2897.45 Lab / Micro Data 02/22/25 06:50 Physical Exam Const alert, oriented x3 and no apparent distress Neck full ROM Resp normal respiratory effort, normal air movement and no retractions Effort and Inspection: able to speak in complete sentences and symmetric chest movement GI soft to palpation Inspection: incision intact Bladder / Kidney Exam: bladder normal to palpation Uterus Palpation: uterus fundus firm Extremity normal to inspection and full ROM Skin Skin Narrative: dressing intact. marked drainage, no further Psych mental status grossly normal, thought process normal and cooperative Assessment & Plan (1) delivery delivered: COMMENT: JW/LC girl (2) Anxiety: COMMENT: no meds, no counseling, doing well overall. wellbutrin in past. PLAN: Plan s/p LTCS PPD # 2 1. routine post care 2. breast feeding- support given 3. rh positive 4. rubella immune 5. d/c home today 02/23/25 0807 Cosigner Signature (if applicable): CC: ~ Signed [facility]07-07-2025 Progress note Author Bernarda Weber [facility] Note Date/Time February 22, 2025 8:33a m [facility] Medical Records Department [address] [place] [address] Progress Note - OBGYN 02/22/25830 MR#: [id number] Acct: [id number] Name: ERIKA PINEDA Rep #:[id number] : 2005 From: Bernarda Weber CNM PCP: Status:ADM IN Location: [id number] Subjective Subjective Patient doing well without complaints. Tolerating PO. Ambulating and voiding without difficulty. Feeding well. Denies chest pain, shortness of breath, calf pain/swelling, fevers, chills, lightheadedness. Objective Data Objective Data Vital Signs: Vital Signs Temp Pulse Resp BP Pulse Ox O2 Del Method O2 Flow Rate 98.5 F 72 16 103/56 L 98 Room Air 2 02/22/25 04:35 02/22/25 04:35 02/22/25 04:35 02/22/25 04:35 02/22/25 04:35 02/22/25 04:35 02/21/25 05:32 Oxygen Flow Rate (L/min) 2 Oxygen Delivery Method Room Air Weight: 189 lb 3.2 oz Body Mass Index (BMI) 35.7 Intake & Output: Intake and Output for Last 24 Hours 02/20/25 02/21/25 02/22/25 23:59 23:59 23:59 Intake Total 3000.00 / 3000.00 1252.55 / 1252.55 Output Total 4150 / 4150 Balance 3000.00 / 3000.00 -2897.45 / -2897.45 Lab / Micro Data 02/22/25 06:50 Labs: Laboratory Results - last 24 hr 02/22/25 06:50: WBC 16.1 H, RBC 3.03 L, Hgb 8.7 L, Hct 26.9 L, MCV 88.8, MCH 28.7, MCHC 32.3 D, RDW Std Deviation 44.1 H, RDW Coeff of Viktor 13.6, Plt Count 228, MPV 10.8 ROS Constitutional Constitutional: Reports systems reviewed and no addt'l complaints, except as documented; Denies anorexia or headache(s) Cardiovascular Cardiovascular: Reports systems reviewed and no addt'l complaints, except as documented; Denies dizziness, dyspnea, nausea or tachypnea Respiratory/Chest Respiratory/Chest: Reports systems reviewed and no addt'l complaints, except as documented; Denies cough, dyspnea, shortness of breath at rest or tachypnea Gastrointestinal Gastrointestinal: Reports systems reviewed and no addt'l complaints, except as documented; Denies abdominal pain, constipation or nausea Genitourinary Genitourinary: Reports systems reviewed and no addt'l complaints, except as documented; Denies burning urination, difficulty urinating, dysuria, urinary frequency or urinary incontinence Musculoskeletal Musculoskeletal: Reports systems reviewed and no addt'l complaints, except as documented Integumentary Integumentary: Reports systems reviewed and no addt'l complaints, except as documented Neurologic Neurologic: Reports systems reviewed and no addt'l complaints, except as documented; Denies abnormal speech, dizziness or headache(s) Psychiatric Psychiatric: Reports systems reviewed and no addt'l complaints, except as documented Endocrine Endocrinology: Reports systems reviewed and no addt'l complaints, except as documented Hematologic/Lymphatic Hematologic/Lymphatic: Reports systems reviewed and no addt'l complaints, exceptas documented Physical Exam Const alert, oriented x3 and no apparent distress Neck full ROM Resp normal respiratory effort, normal air movement and no retractions Effort and Inspection: able to speak in complete sentences and symmetric chest movement GI soft to palpation Inspection: incision intact Bladder / Kidney Exam: bladder normal to palpation Uterus Palpation: uterus fundus firm Extremity normal to inspection and full ROM Psych mental status grossly normal, thought process normal and cooperative Assessment & Plan (1) delivery delivered: COMMENT: JW/ISABEL girl PLAN: s/p LTCS PPD # 1 1. routine post care 2. breast feeding- support given 3. rh positive 4. rubella immune (2) Category II heart rate tracing during labor and delivery: COMMENT: augmentation. membrane sweep with admission. IVF. if not improvedrecurrent variables to AROM with amnioinfusion (3) Back pain affecting : (4) GERD (gastroesophageal reflux disease): COMMENT: pepcid (5) Supervision of high-risk : QUALIFIERS: Trimester: second trimester Qualified Code(s): O09.92- Supervision of high risk , unspecified, second trimester COMMENT: PRR, , MCKENZIE 02/20/25, girl Zachariah BF Richard (6) : QUALIFIERS: Weeks of gestation: 39 weeks Qualified Code(s): Z3A.39 - 39 weeks gestation of COMMENT: GBS neg declined NIPT & Carrier testing, nl anatomy (7) Anxiety: COMMENT: no meds, no counseling, doing well overall. wellbutrin in past. (8) Major depression: QUALIFIERS: Major depression recurrence: unspecified whether recurrent Active/Remission status: remission status unspecified Qualified Code(s): F32.9 - Major depressive disorder, single episode, unspecified (9) Bipolar disorder: QUALIFIERS: Active/Remission status: remission status unspecified Qualified Code(s): F31.9 - Bipolar disorder, unspecified Charges/Coding Multi Select Codes Urinary/Genital Urinary/Genital CPT Codes: No Charge 02/22/25 0833 <Electronically signed by Bernarda Weber CNM> Cosigner Signature (if applicable): CC: ~ Signed [facility] Work Phone: 1(353) 763-678707-07-2025 Progress note [facility] Medical Records Department [address] [place] [address] Progress Note - OBGYN 02/22/25 0831 MR#: [id number] Acct: [id number] Name: ERIKA PINEDA DOUGLAS Rep #:[id number] : 2005 19 From: Bernarda Weebr CNM PCP: Status:ADM IN Location: [id number] Subjective Subjective Patient doing well without complaints. Tolerating PO. Ambulating and voiding without difficulty. Feeding well. Denies chest pain, shortness of breath, calf pain/swelling, fevers, chills, lightheadedness. Objective Data Objective Data Vital Signs: Vital Signs Temp Pulse Resp BP Pulse Ox O2 Del Method O2 Flow Rate 98.5 F 72 16 103/56 L 98 Room Air 2 02/22/25 04:35 02/22/25 04:35 02/22/25 04:35 02/22/25 04:35 02/22/25 04:35 02/22/25 04:35 02/21/25 05:32 Oxygen Flow Rate (L/min) 2 Oxygen Delivery Method Room Air Weight: 189 lb 3.2 oz Body Mass Index (BMI) 35.7 Intake & Output: Intake and Output for Last 24 Hours 02/20/25 02/21/25 02/22/25 23:59 23:59 23:59 Intake Total 3000.00 / 3000.00 1252.55 / 1252.55 Output Total 4150 / 4150 Balance 3000.00 / 3000.00 -2897.45 / -2897.45 Lab / Micro Data 02/22/25 06:50 Labs: Laboratory Results - last 24 hr 02/22/25 06:50: WBC 16.1 H, RBC 3.03 L, Hgb 8.7 L, Hct 26.9 L, MCV 88.8, MCH 28.7, MCHC 32.3 D, RDWStd Deviation 44.1 H, RDW Coeff of Viktor 13.6, Plt Count 228, MPV 10.8 ROS Constitutional Constitutional: Reports systems reviewed and no addt'l complaints, except as documented; Denies anorexia or headache(s) Cardiovascular Cardiovascular: Reports systems reviewed and no addt'l complaints, except as documented; Denies dizziness, dyspnea, nausea or tachypnea Respiratory/Chest Respiratory/Chest: Reports systems reviewed and no addt'l complaints, except as documented; Denies cough, dyspnea, shortness of breath at rest or tachypnea Gastrointestinal Gastrointestinal: Reports systems reviewed and no addt'l complaints, except as documented; Denies abdominal pain, constipation or nausea Genitourinary Genitourinary: Reports systems reviewed and no addt'l complaints, except as documented; Denies burning urination, difficulty urinating, dysuria, urinary frequency or urinary incontinence Musculoskeletal Musculoskeletal: Reports systems reviewed and no addt'l complaints, except as documented Integumentary Integumentary: Reports systems reviewed and no addt'l complaints, except as documented Neurologic Neurologic: Reports systems reviewed and no addt'l complaints, except as documented; Denies abnormal speech, dizziness or headache(s) Psychiatric Psychiatric: Reports systems reviewed and no addt'l complaints, except as documented Endocrine Endocrinology: Reports systems reviewed and no addt'l complaints, except as documented Hematologic/Lymphatic Hematologic/Lymphatic: Reports systems reviewed and no addt'l complaints, exceptas documented Physical Exam Const alert, oriented x3 and no apparent distress Neck full ROM Resp normal respiratory effort, normal air movement and no retractions Effort and Inspection: able to speak in complete sentences and symmetric chest movement GI soft to palpation Inspection: incision intact Bladder / Kidney Exam: bladder normal to palpation Uterus Palpation: uterus fundus firm Extremity normal to inspection and full ROM Psych mental status grossly normal, thought process normal and cooperative Assessment & Plan (1) delivery delivered: COMMENT: JW/ISABEL girl PLAN: s/p LTCS PPD # 1 1. routine post care 2. breast feeding- support given 3. rh positive 4. rubella immune (2) Category II heart rate tracing during labor and delivery: COMMENT: augmentation. membrane sweep with admission. IVF. if not improvedrecurrent variables to AROM with amnioinfusion (3) Back pain affecting : (4) GERD (gastroesophageal reflux disease): COMMENT: pepcid (5) Supervision of high-risk : QUALIFIERS: Trimester: second trimester Qualified Code(s): O09.92- Supervision of high risk , unspecified, second trimester COMMENT: PRR, , MCKENZIE 02/20/25, girl Zachariah BF Richard (6) : QUALIFIERS: Weeks of gestation: 39 weeks Qualified Code(s): Z3A.39 - 39 weeks gestation of COMMENT: GBS neg declined NIPT & Carrier testing, nl anatomy (7) Anxiety: COMMENT: no meds, no counseling, doing well overall. wellbutrin in past. (8) Major depression: QUALIFIERS: Major depression recurrence: unspecified whether recurrent Active/Remission status: remission status unspecified Qualified Code(s): F32.9 - Major depressive disorder, single episode, unspecified (9) Bipolar disorder: QUALIFIERS: Active/Remission status: remission status unspecified Qualified Code(s): F31.9 - Bipolar disorder, unspecified Charges/Coding Multi Select Codes Urinary/Genital Urinary/Genital CPT Codes: No Charge 02/22/25 0833 Cosigner Signature (if applicable): CC: ~ Signed [facility]07-06-2025 Procedure note [facility] Medical Records Department [address] [place] [address] Operative Report 02/21/25 0438 MR#: [id number] Acct: [id number] Name: ERIKA PINEDA Rep #:[id number] : 2005 19 From: Alfredo Burns MD PCP: Status:ADM IN Location: [id number] Maternal Data Information MCKENZIE Calculator Estimated Delivery Date Method Current WG Current Estimate 02/20/25 LMP (Certain) 40w 1d Other Estimates 02/24/25 Ultrasound #1 39w 4d Operative Report (OB) Details Procedure Type: low transverse Date of Procedure: 02/21/25 Procedure Start Time: 03:52 Pre-Operative Diagnosis: Nonreassuring Status and Isolated Maternal Fever Post-Operative Diagnosis: Same as Pre-operative diagnosis and Other Post- Operative Diag (Posterior Presentation; Cord Entanglement) OTHER Post-Operative Diagnosis: Posterior Presentation; Cord Entanglement Classification: LIAN Type of Anesthesia: Epidural Special Medications: Ketamine during procedure Antibiotic Given: Ancef 2 grams IV x1 and Zithromax 500 mg/5 mL X1 Drain: Tyler to straight drain Estimated Blood Loss: 750 cc Fluids Replaced: cyystalloid Findings Description of surgery: Surgeon: Alfredo Burns MD, FACOG Anesthesia: Epidural per Sparkle Guo, ASI Procedure: Primary Low Transverse Cervical Caesarean Section Findings: Viable female infant with Apgars of 4/8/9 in occiput posterior presentation with clear amniotic fluid and normal three-vessel placenta. Cord around neck x 3 tight. Indication: This is a 19-year-old G1, P0 who presented at 40+ weeks gestation inactive labor. She progressed to an anterior lip without Pitocin but had intermittent minimal to no variability. During her labor she was also noted to have an occasional late deceleration. Patient pushed for about 1/2-hour from 0 station with a small anterior lip and during this time variability markedly improved; baby became tachycardic and a low-grade maternal fever of 100.2- 100.8Fwas noted. When pushing was paused the late decelerations resumed and tachycardia of approximately 170 was noted with minimal variability. Given no prospect of delivering soon it was decided to proceed with primary section for increasing stress and isolated maternal fever with possible early chorioamnionitis. care has otherwise been uneventful. The patient was counseled regarding the risk and indications of this procedure including the possibility of bleeding infection and injury to surrounding structures such as bowel bladder. All questions were answered. Procedure: Patient was taken to the operating room where after epidural catheterwas redosed, the patient was prepped and draped in usual sterile fashion. A Tyler catheter had been previously placed. The abdomen was entered through a Pfannenstiel incision and peritoneum was entered bluntly. After dev eloping a bladder flap on the lower uterine segment a low transverse incision was made on the uterus and head was easily delivered onto the operative field the nosemouth and oropharynx were bulb suctioned. Subsequently a viable female was born from an occiput posterior presentation with Apgars of 4/8/9. The umbilical cord was doubly clamped and ligated and infant handed to the nursery personnel who were present for the delivery. Placenta was delivered and noted to be 3 vessels and normal. Cord was noted to be around the neck 3 times tight. Uterus was exteriorized and remaining placental tissue was removed. The uteruswas then closed in 2 layers first with running locked 0 Vicrylsuture followed by a second imbricating layer with 0 Vicryl suture. 0 Vicryl suture was then used in a horizontal mattress interrupted fashion to affect final hemostasis of the uterine incision line.Normal fallopian tubes and ovaries were visualized and the uterus was returned to the pelvis. Hemostasis was noted and rectus abdominis muscles were reapproximated in the midline with interrupted Number 0 Vicryl suture in a horizontal mattress fashion. Fascia was closed with running Number 1 PDS Strata fix suture. Subcutaneous tissue was irrigated with copious amounts of saline solution and then closed with running 3-0 Vicryl suture. Skinwas closed with 4-0 monocryl suture in a running subcuticular fashion. Steri strips and a Mepilex dressing were placed across the incision. The patient tolerated the procedure well and was taken to the recovery room in satisfactory condition. Sponge, needle, and instrument counts were all reportedly correct. EBL was 750 cc. Ancef 2 gms and azithromycin 500 mg were given prior to the procedure. Spicemen to Pathology: None Complications: None Surgical findings: Viable female infant Apgars of 4/8/9 in occiput posterior presentation with clear amniotic fluid and normal three-vessel placenta. Cord around neck x 3 tight. Presentation: Vertex Amniotic Membrane Rupture Type: Artificial Amniotic Fluid Description: Clear Placental Delivery Description: Spontaneous Placenta Disposition: [facility] Specimen collected: No Cord Vessel Description: 3 Vessels Cord Entanglement: Around neck x 1, tight (Around neck x 3 tight) and Other Cord Gases: ABG and VBG Infant A gender: Female (1 minute): 4 (5 minute): 8 Strap Making Machine Operator assistant merchandiser: Yes Composite Layup Worker: Samy Blair Tasks completed by unit assistant: Closing and Retracting Complications Complications: No Admit VTE Documentation VTE Present on Admission: Yes VTE Mechan Device Prophylaxis: SCD's 02/21/25 0501 Cosigner Signature (if applicable): CC: Dr. Alfredo Burns MD~ Signed [facility]07-05-2025 History and physical note Author Jenny Mejia [facility] Note Date/Time February 20, 2025 4:08p m [facility] Medical Records Department [address] [place] [address] H&P Exam - MUSSEL OPENER 02/20/25 1603 MR#: [id number] Acct: [id number] Name: ERIKA PINDEA Rep #:[id number] : 2005 19 From: Jenny Mejia CNM PCP: Status:ADM IN Location: SY094-6 HPI - General General Date of Admission: 02/20/25 Chief Complaint: contractions HPI Narrative ERIKA PINEDA, is a 19 F who presents at 40 weeks, woke up with increased ctx. denies lof/vb. good fm. during triage, had recurrent variables with occ late decelerations. Maternal Data Information MCKENZIE Calculator Estimated Delivery Date Method Current WG Current Estimate 02/20/25 LMP (Certain) 40w 0d Other Estimates 02/24/25 Ultrasound #1 39w 3d PFSH PFSH Medical History Irregular menstrual bleeding Seasonal allergies Hx of trauma Home Medications ?Medication ?Instructions ?Recorded ?Last Taken ?Type ondansetron 4 mg disintegrating 4 mg PO Q6H PRN nausea and 12/01/24 12/20/24 10:00 Rx tablet vomiting #30 tabs 4 mg Allergy/AdvReac Type Severity Reaction Status Date / Time No Known Allergies Allergy Verified 02/20/25 14:32 Surgical History H/O oral surgery Social History adopted: No household members: family current occupational status: employed current occupation: [employer] pets and animals: Yes (Avoid litterbox) pets [...] physical activity do you participate in: none susana/nondenominational: None seatbelt use: always do you feel safe at home: Yes additional social history: BF Richard- Ecco Seal History 1 Elective abortions Hx Para 0 Spontaneous abortions Hx # Term Pregnancies Ectopic pregnancies Hx # Pregnancies Multiple births # of living children Visit Details Expected Delivery Route/Plan labor Preferences- CB/BF classes: [...] OB Flowsheet Initial Weight: Not Recorded Date -?-?-?-?-?-?-?-?-?-?-?-?- EGA Weight BP Urine Prot -?-?-?-?-?-?-?-?-?-?-?-?- Glucose FHR FuHt Pres Dilation -?-?-?-?-?-?-?-?-?-?-?-?- Effaced St Visit Note 07/15/24 -?-?-?-?-?-?-?-?-?-?-?-?- 8w 4d 162 lb 127/78 -?-?-?-?-?-?-?-?-?-?-?-?- 181 -?-?-?-?-?-?-?-?-?-?--?-?- KW- CRL cons wit h dates. Accepts [...] 20w 5d 168 lb 6 oz 107/55 -?-?-?-?-?-?-?-?-?-?--?-?- 145 20 -?-?-?-?-?-?-?-?-?-?-?-?- KW- no vb/crampi ng. good fm. anatomy scan reviewed 11/09/24 -?-?-?-?-?-?-?-?-?-?-?-?- 25w 2d 170 lb 8 oz 101/63 Nega tive -?-?-?-?-?-?-?-?-?-?-?-?- Negative 140 25 -?-?-?-?-?-?-?-?-?-?-?-?- JV- glucola inst ructions reviewed. no lof, vaginal bleeding, or dec fm. 11/19/24 -?-?-?-?-?-?-?-?-?-?-?-?- 26w 5d 174 lb 99/65 Negative -?-?-?-?-?-?-?-?-?-?-?-?- Negative 145 -?-?-?-?-?-?-?-?-?-?--?-?- KW- work in for decreased movement. no [...] well. would like membrane sweep at 39 we eks 02/12/25 -?-?-?-?-?-?-?-?-?-?-?-?- 38w 6d 187 lb 4 oz 112/76 -?-?-?-?-?-?-?-?-?-?-?-?- 140 38 Cephalic 2 -?-?-?-?-?-?-?-?-?-?-?-?- 80 -2 SM- no vb lof good fm no regular ctx 02/17/25 -?-?-?-?-?-?-?-?-?-?-?-?- 39w 4d 189 lb 8 oz 132/84 121/82 Trace -?-?-?-?-?-?-?-?-?-?-?-?- Negative 140 40 Cephalic 3 -?-?-?-?-?-?-?-?-?-?-?-?- 80 -2 KW- no vb/ lof. having some irregular ctx x 3 days. no mtz/dizziness/blurred vision. NST FHR Rate Baby A Baseline: 150 Variability:: Minimal and Moderate Decelerations:: Late and Variable NST Reactive:: Non-Reactive FHR Category:: Category II Uterine Activity:: q3 Vital Signs Vital Signs Vital Signs: 02/20/25 14:31 02/20/25 14:31 02/20/25 14:31 Pulse Rate 107 H 101 H Respiratory Rate Blood Pressure 133/67 H BP Systolic 133 BP Diastolic 67 Pulse Ox 02/20/25 14:31 02/20/25 14:33 02/20/25 14:36 Pulse Rate 96 Respiratory Rate 16 Blood Pressure BP Systolic BP Diastolic Pulse Ox 98 02/20/25 14:36 Pulse Rate Respiratory Rate Blood Pressure BP Systolic BP Diastolic Pulse Ox 98 Weight Weight: 189 lb 3.2 oz Body Mass Index (BMI) 35.7 Physical Exam Const alert, oriented x3 and no apparent distress General Appearance: cooperative, comfortable and well kempt Orientation / Consciousness: awake and oriented to person Exam Limitations: no limitations HEENT normocephalic Neck full ROM Chest inspection of chest normal Resp normal respiratory effort, normal air movement and no retractions Effort and Inspection: able to speak in complete sentences and symmetric chest movement Cardio regular rate Peripheral Pulses: pulses 2+ throughout GI normal to inspection, nondistended, normoactive bowel sounds Inspection: gravid no CVA tenderness and appearance of the vagina normal External Female Exam: normal appearance of the urethra; Negative for external lesion OB / External & Speculum: external exam normal Manual OB Exam: estimated gestational size appropriate and presentation cephalic Uterus Palpation: Negative for uterus tender Extremity normal to inspection Skin no rashes or lesions noted Neuro deep tendon reflexes 2+ bilaterally and gait normal Motor Exam: strength 5/5 throughout and clonus absent Psych Activity / Motor Behavior: appropriate eye contact Speech: normal speech Labs Labs Labs: Blood Type O POSITIVE Antibody Screen NEGATIVE Hct 33.5 % (37-47) L Hgb 11.6 g/dL (12.0-15.0) L Obstetrics Ultrasound Syphilis Total Ab Nonreactive (Nonreactive) Rubella IgG Antibody Reactive (Nonreactive) Hep Bs Antigen Non-Reactive (Nonreactive) Hepatitis C Antibody Non-Reactive (Nonreactive) Chlamydia DNA (PAULA) Negative (Negative) N.gonorrhoeae DNA (PAULA) Negative (Negative) HIV 1&2 Antibody Nonreactive (Nonreactive) Glucose 1 Hr 50 gm 119 mg/dL (70-140) Assessment & Plan (1) Category II heart rate tracing during labor and delivery: COMMENT: augmentation. membrane sweep with admission. IVF. if not improved recurrent variables to AROM with amnioinfusion (2) Supervision of high-risk : QUALIFIERS: Trimester: second trimester Qualified Code(s): O09.92 - Supervision of high risk , unspecified, second trimester COMMENT: PRR, , MCKENZIE 02/20/25, girl Zachariah BF Richard (3) : QUALIFIERS: Weeks of gestation: 39 weeks Qualified Code(s): Z3A.39 - 39 weeks gestation of COMMENT: GBS neg declined NIPT & Carrier testing, nl anatomy (4) Anxiety: COMMENT: no meds, no counseling, doing well overall. wellbutrin in past. (5) Major depression: QUALIFIERS: Major depression recurrence: unspecified whether recurrent Active/Remission status: remission status unspecified Qualified Code(s): F32.9 - Major depressive disorder, single episode, unspecified (6) Bipolar disorder: QUALIFIERS: Active/Remission status: remission status unspecified Qualified Code(s): F31.9 - Bipolar disorder, unspecified PLAN: Plan Patient presents IAL, plan augmentation for cat 2 tracing management for , membrane sweep provided. pitocin/AROM PRN if needed. Pain management: plans epidural. GBS neg. Management of any complications: none I have reviewed the [facility] and made any clinically relevant updates. Dr. Burns updated on admission, exam and poc. agrees with cat 2 tracing management. 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 denies lof/vb. good fm. during triage, had recurrent variables with occ late decelerations. Maternal Data Information MCKENZIE Calculator Estimated Delivery Date Method Current WG Current Estimate 02/20/25 LMP (Certain) 40w 0d Other Estimates 02/24/25 Ultrasound #1 39w 3d [facility] Medical History Irregular menstrual bleeding Seasonal allergies Hx of trauma Home Medications ?Medication ?Instructions ?Recorded ?Last Taken ?Type ondansetron 4 mg disintegrating 4 mg PO Q6H PRN nausea and 12/01/24 12/20/24 10:00 Rx tablet vomiting #30 tabs 4 mg Allergy/AdvReac Type Severity Reaction Status Date / Time No Known Allergies Allergy Verified 02/20/25 14:32 Surgical History H/O oral surgery Social History adopted: No household members: family current occupational status: employed current occupation: [employer] pets and animals: Yes (Avoid litterbox) pets [...] physical activity do you participate in: none susana/nondenominational: None seatbelt use: always do you feel safe at home: Yes additional social history: BF Richard- Ecco Seal History 1 Elective abortions Hx Para 0 Spontaneous abortions Hx # Term Pregnancies Ectopic pregnancies Hx # Pregnancies Multiple births # of living children Visit Details Expected Delivery Route/Plan labor Preferences- CB/BF classes: [...] current plan of care details and appropriate ordersplaced. Relevant counseling for the gestational age provided. Continue routine care and follow up unless otherwise noted in visit notes/problem list details OB Flowsheet Initial Weight: Not Recorded Date -?-?-?-?-?-?-?-?-?-?-?-?- EGA Weight BP Urine Prot -?-?-?-?-?-?-?-?-?-?-?-?- Glucose FHR FuHt Pres Dilation -?-?-?-?-?-?-?-?-?-?-?-?- Effaced St Visit Note 11/27/24 -?-?-?-?-?-?-?-?-?-?-?-?- 8w 4d 162 lb 127/78 -?-?-?-?-?-?-?-?-?-?-?-?- 181 -?-?-?-?-?-?-?-?-?-?--?-?- KW- CRL cons wit h dates. Accepts NIPT 08/13/24 -?-?-?-?-?-?-?-?-?-?-?-?- 12w 5d 162 lb 6 oz 122/71 Nega tive -?-?-?-?-?-?-?-?-?-?-?-?- Negative 163 -?-?-?-?-?-?-?-?-?-?-?-?- MH-No VB. Nause a persists/sharon sent. US confirm FHT. PN labs today 08/24/24 -?-?-?-?-?-?-?-?-?-?-?-?- 14w 2d 163 lb 112/76 Negative -?-?-?-?-?-?-?-?-?-?-?-?- Negative 150 -?-?-?-?-?-?-?-?-?-?-?-?- SM- seen seconda ry to spotting over the weeknd seen in ER and viable IUP seen no abnormalities 09/11/24 -?-?-?-?-?-?-?-?-?-?-?-?- 16w 6d Negative -?-?-?-?-?-?-?-?-?-?-?-?- Negative 153 -?-?-?-?-?-?-?-?-?-?-?-?- KW- no vb/nila ng. +flutters. anatomy US ordered. 10/08/24 -?-?-?-?-?-?-?-?-?-?-?-?- 20w 5d 168 lb 6 oz 107/55 -?-?-?-?-?-?-?-?-?-?--?-?- 145 20 -?-?-?-?-?-?-?-?-?-?-?-?- KW- no vb/crampi ng. good fm. anatomy scan reviewed 11/09/24 -?-?-?-?-?-?-?-?-?-?-?-?- 25w 2d 170 lb 8 oz 101/63 Nega tive -?-?-?-?-?-?-?-?-?-?-?-?- Negative 140 25 -?-?-?-?-?-?-?-?-?-?-?-?- JV- glucola inst ructions reviewed. no lof, vaginal bleeding, or dec fm. 11/19/24 -?-?-?-?-?-?-?-?-?-?-?-?- 26w 5d 174 lb 99/65 Negative -?-?-?-?-?-?-?-?-?-?-?-?- Negative 145 -?-?-?-?-?-?-?-?-?-?--?-?- KW- work in for decreased movement. no [...] well. would like membrane sweep at 39 we eks 02/12/25 -?-?-?-?-?-?-?-?-?-?-?-?- 38w 6d 187 lb 4 oz 112/76 -?-?-?-?-?-?-?-?-?-?-?-?- 140 38 Cephalic 2 -?-?-?-?-?-?-?-?-?-?-?-?- 80 -2 SM- no vb lof good fm no regular ctx 02/17/25 -?-?-?-?-?-?-?-?-?-?-?-?- 39w 4d 189 lb 8 oz 132/84 121/82 Trace -?-?-?-?-?-?-?-?-?-?-?-?- Negative 140 40 Cephalic 3 -?-?-?-?-?-?-?-?-?-?-?-?- 80 -2 KW- no vb/ lof. having some irregular ctx x 3 days. no mtz/dizziness/blurred vision. NST FHR Rate Baby A Baseline: 150 Variability:: Minimal and Moderate Decelerations:: Late and Variable NST Reactive:: Non-Reactive FHR Category:: Category II Uterine Activity:: q3 Vital Signs Vital Signs Vital Signs: 02/20/25 14:31 02/20/25 14:31 02/20/25 14:31 Pulse Rate 107 H 101 H Respiratory Rate Blood Pressure 133/67 H BP Systolic 133 BP Diastolic 67 Pulse Ox 02/20/25 14:31 02/20/25 14:33 02/20/25 14:36 Pulse Rate 96 Respiratory Rate 16 Blood Pressure BP Systolic BP Diastolic Pulse Ox 98 02/20/25 14:36 Pulse Rate Respiratory Rate Blood Pressure BP Systolic BP Diastolic Pulse Ox 98 Weight Weight: 189 lb 3.2 oz Body Mass Index (BMI) 35.7 Physical Exam Const alert, oriented x3 and no apparent distress General Appearance: cooperative, comfortable and well kempt Orientation / Consciousness: awake and oriented to person Exam Limitations: no limitations HEENT normocephalic Neck full ROM Chest inspection of chest normal Resp normal respiratory effort, normal air movement and no retractions Effort and Inspection: able to speak in complete sentences and symmetric chest movement Cardio regular rate Peripheral Pulses: pulses 2+ throughout GI normal to inspection, nondistended, normoactive bowel sounds Inspection: gravid no CVA tenderness and appearance of the vagina normal External Female Exam: normal appearance of the urethra; Negative for external lesion OB / External & Speculum: external exam normal Manual OB Exam: estimated gestational size appropriate and presentation cephalic Uterus Palpation: Negative for uterus tender Extremity normal to inspection Skin no rashes or lesions noted Neuro deep tendon reflexes 2+ bilaterally and gait normal Motor Exam: strength 5/5 throughout and clonus absent Psych Activity / Motor Behavior: appropriate eye contact Speech: normal speech Labs Labs Labs: Blood Type O POSITIVE Antibody Screen NEGATIVE Hct 33.5 % (37-47) L Hgb 11.6 g/dL (12.0-15.0) L Obstetrics Ultrasound Syphilis Total Ab Nonreactive (Nonreactive) Rubella IgG Antibody Reactive (Nonreactive) Hep Bs Antigen Non-Reactive (Nonreactive) Hepatitis C Antibody Non-Reactive (Nonreactive) Chlamydia DNA (PAULA) Negative (Negative) N.gonorrhoeae DNA (PAULA) Negative (Negative) HIV 1&2 Antibody Nonreactive (Nonreactive) Glucose 1 Hr 50 gm 119 mg/dL (70-140) Assessment & Plan (1) Category II heart rate tracing during labor and delivery: COMMENT: augmentation. membrane sweep with admission. IVF. if not improved recurrent variables to AROM with amnioinfusion (2) Supervision of high-risk : QUALIFIERS: Trimester: second trimester Qualified Code(s): O09.92 - Supervision of high risk , unspecified, second trimester COMMENT: PRR, , MCKENZIE 02/20/25, girl Zachariah BF Richard (3) : QUALIFIERS: Weeks of gestation: 39 weeks Qualified Code(s): Z3A.39 - 39 weeks gestation of COMMENT: GBS neg declined NIPT & Carrier testing, nl anatomy (4) Anxiety: COMMENT: no meds, no counseling, doing well overall. wellbutrin in past. (5) Major depression: QUALIFIERS: Major depression recurrence: unspecified whether recurrent Active/Remission status: remission status unspecified Qualified Code(s): F32.9 - Major depressive disorder, single episode, unspecified (6) Bipolar disorder: QUALIFIERS: Active/Remission status: remission status unspecified Qualified Code(s): F31.9 - Bipolar disorder, unspecified PLAN: Plan Patient presents IAL, plan augmentation for cat 2 tracing management for , membrane sweep provided. pitocin/AROM PRN if needed. Pain management: plans epidural. GBS neg. Management of any complications: none I have reviewed the [facility] and made any clinically relevant updates. Dr. Burns updated on admission, exam and poc. agrees with cat 2 tracing management. 02/20/25 1608 Cosigner Signature (if applicable): CC: MANINDER Bellaraya Mejia~ Signed [facility]07-02-2025 [facility] [address], [address] [place] [address] OFFICE VISIT Date of Service: 02/17/25 MR#: [id number] Acct: [id number] Name: ERIKA PINEDA DOUGLAS Rep #: [id number] : 2005 Provider: MANINDER Weber Age/Sex: 19/F Location: [facility] Status: Signed Intake Vital Signs 02/12/25 13:31 02/12/25 13:54 02/17/25 08:35 02/17/25 08:41 Height 5 ft 1 in 5 ft 1 in 5 ft 1 in 5 ft 1 in Weight: 189 lb 8 oz BMI 35.8 BP 132/84 H 121/82 H Intake Visit Reasons: 39wk ob Research Laboratory Specialist Required: No Is patient in pain?: No [...] family current occupational status: employed current occupation: [employer] pets and animals: Yes (Avoid litterbox) pets [...] physical activity do you participate in: none susana/nondenominational: None seatbelt use: always do you feel [...] current plan of care details and appropriate ordersplaced. Relevant counseling for the gestational age provided. [...] and Symptoms of Preeclampsia, Feeding No , Sharon Education and Family Medical Leave or Disability [...] trimester Comment: PRR, , MCKENZIE 02/20/25, girl Zachariah Ramos (4) : Status: Acute Qualifiers: Weeks of [...] information and see below for orders placed atthis visit. [place] appropriate handout given. 02/17/25 0918 s MANINDER> Date _ Bernarda Weber CNM Cosignmichael Signature: Date (if applicable) CC: ~ [facility]06-27-2025 [facility] [address] [place] [address], [address] [place] [address] OFFICE VISIT Date of Service: 02/12/25 MR#: [id number] Acct: [id number] Name: ERIKA PINEDA Rep #: [id number] : 2005 Provider: Dr. Ganesh Quigley MD Age/Sex: 19/F Location: [facility] Status: Signed Intake Vital Signs 08/13/24 09:09 02/05/25 11:38 02/12/25 13:31 Height 5 ft 1 in 5 ft 1 in 5 ft 1 in Weight: 187 lb 4 oz BMI 35.4 BP 112/76 Intake Visit Reasons: 38 wk ob Research Laboratory Specialist Required: No Is patient in pain?: No [...] family current occupational status: employed current occupation: [employer] pets and animals: Yes (Avoid litterbox) pets [...] physical activity do you participate in: none susana/nondenominational: None seatbelt use: always do you feel [...] current plan of care details and appropriate ordersplaced. Relevant counseling for the gestational age provided. [...] Symptoms of Preeclampsia, Infant Feeding No , Sharon Education and Family Medical Leave or Disability [...] GERD (gastroesophageal reflux disease): Status: Acute Comment: pepcijordon (3) Supervision of high-risk : Status: Acute Qualifiers: Trimester: second trimester Qualified Code(s): O09.92 - Supervision of high risk , unspecified, second trimester Comment: PRR, , MCKENZIE 02/20/25, girl Zachariah BF Richard (4) : Status: Acute Qualifiers: [...] Urinalysis 2 Dip (Clinic) Today 02/12/25 1345 tamika MD> Date _ Mar Garcia Signature: Date (if applicable) CC: ~ [facility]06-20-2025 [facility] [address] [place] [address], [address] [place] [address] OFFICE VISIT Date of Service: 02/05/25 MR#: [id number] Acct: [id number] Name: ERIKA PINEDA Rep #: [id number] : 2005 Provider: MANINDER Weber Age/Sex: 19/F Location: [facility] Status: Signed Intake Vital Signs 08/13/24 09:09 01/25/25 10:45 02/05/25 11:38 Height 5 ft 1 in 5 ft 1 in 5 ft 1 in Weight: 188 lb 2 oz BMI 35.5 BP 126/83 H Intake Visit Reasons: 37 wk ob Chief Complaint: 37 Week OB Research Laboratory Specialist Required: No Is patient in pain?: No [...] family current occupational status: employed current occupation: [employer] pets and animals: Yes (Avoid litterbox) pets [...] physical activity do you participate in: none susana/nondenominational: None seatbelt use: always do you feel [...] current plan of care details and appropriate ordersplaced. Relevant counseling for the gestational age provided. [...] vb/nila ng. +flutters. anatomy US ordered. 10/08/24 -?-?-?-?-?-?-?-?-?-?--?-?- [...] and Symptoms of Preeclampsia, Feeding No , Sharon Education and Family Medical Leave or Disability [...] information and see below for orders placed atthis visit. [place] appropriate handout given. 02/05/25 1156 s MANINDER> Date _ Bernarda Weber CNM Cosigner Signature: Date (if applicable) CC: ~ [facility] [id number] [facility] [address], [address] [place] [address] OFFICE VISIT Date of Service: 01/25/25 MR#: [id number] Acct: [id number] Name: ERIKA PINEDA Rep #: [id number] : 2005 Provider: Dr. Kenya Sood DO Age/Sex: 19/F Location: [facility] [place] Status: Signed Intake Vital Signs 08/13/24 09:09 09/11/24 11:09 01/14/25 10:44 01/25/25 10:43 01/25/25 10:45 Height 5 ft 1 in 5 ft 1 in 5 ft 1 in 5 ft 1 in 5 ft 1 in Weight: 187 lb 4 oz BMI 35.4 BP 106/62 Intake Visit Reasons: 36 wk ob Research Laboratory Specialist Required: No Is patient in pain?: No [...] family current occupational status: employed current occupation: [employer] pets and animals: Yes (Avoid litterbox) pets [...] physical activity do you participate in: none susana/nondenominational: None seatbelt use: always do you feel [...] current plan of care details and appropriate ordersplaced. Relevant counseling for the gestational age provided. [...] risk , unspecified, second trimester 01/25/25 1107 e Velde DO> Date _ Lizet Sood DO [facility] Signature: Date (if applicable) CC: ~ [facility]05-29-2025 [facility] [address] [place] [address], [address] [place] [address] OFFICE VISIT Date of Service: 01/14/25 MR#: [id number] Acct: [id number] Name: ERIKA PINEDA Rep #: [id number] : 2005 Provider: MANINDER Weber Age/Sex: 19/F Location: [facility] [place] Status: Signed Intake Vital Signs 08/13/24 08:33 08/13/24 09:09 12/18/24 09:39 12/28/24 14:02 01/14/25 10:44 Height 5 ft 1 in 5 ft 1 in 5 ft 1 in 5 ft 1 in 5 ft 1 in Weight: 185 lb BMI 34.9 BP 108/74 Intake Visit Reasons: 34 wk ob Chief Complaint: 34wk OB Research Laboratory Specialist Required: No Is patient in pain?: No [...] family current occupational status: employed current occupation: [employer] pets and animals: Yes (Avoid litterbox) pets [...] physical activity do you participate in: none susana/nondenominational: None seatbelt use: always do you feel [...] current plan of care details and appropriate ordersplaced. Relevant counseling for the gestational age provided. [...] and Symptoms of Preeclampsia, Feeding No , [facility] Education and Family Medical Leave or Disability [...] information and see below for orders placed atthis visit. [place] appropriate handout given. Clinical Quality Measures Falls Risk Screening/Assistive Devices Have you fallen in the past year?: No 01/14/25 1107 s CNM> Date _ Bernarda Weber CNM Cosigner Signature: Date (if applicable) CC: ~ [facility]04-14-2025 Evaluation note* Diagnosis Onset Date Resolution Status Admit Date Bipolar disorder acute November 302024 9:55am Major depression acute November 302024 9:55am acute November 30 9:55am Supervision of high-risk acute November 30, 2024 9:55am Anxiety resolved November 30 9:55am Dysthymia resolved November 30 9:55am Former electronic cigarette use reso lved November 30, 2024 9:55am Bipolar disorder acute December 012024 5:30pm Major depression acute December 012024 5:30pm acute December 01 5:30pm Supervision of high-risk acute December 01, 2024 5:30pm Anxiety resolved December 01 5:30pm Dysthymia resolved December 01 5:30pm Former electronic cigarette use reso lved December 01, 2024 5:30pm Gastroenteritis resolved November 5:30pm Bipolar disorder acute December 18, 2024 9:34am Major depression acute December 18, 2024 9:34am acute December 18, 2024 9:34am Supervision of high-risk acute December 18, 2024 9: 34am Anxiety resolved December 18, 2024 9:34am GERD (gastroesophageal reflu x disease) resolved December 18, 2024 9: 34am Bipolar disorder acute December 20, 2024 4:50pm Major depression acute December 20, 2024 4:50pm acute December 20, 2024 4:50pm Supervision of high-risk acute December 20, 2024 4: 50pm Anxiety resolved December 20, 2024 4:50pm Back pain affecting resolv ed December 20, 2024 4:50pm GERD (gastroesophageal reflu x disease) resolved December 20, 2024 4: 50pm Bipolar disorder acute December 1:50pm Major depression acute December 1:50pm acute December 28, 2024 1:50pm Supervision of high-risk acute December 28, 2024 1 :50pm Anxiety resolved December 28, 2024 1:50pm Back pain affecting resolv ed December 28, 2024 1:50pm GERD (gastroesophageal reflu x disease) resolved December 28, 2024 1 :50pm Bipolar disorder acute December 10:39am Major depression acute December 10:39am acute January 14, 2025 10:39am Supervision of high-risk acute January 14, 2025 1 0:39am Anxiety resolved January 14, 2025 10:39am Back pain affecting resolv ed January 14, 2025 10:39am GERD (gastroesophageal reflu x disease) resolved January 14, 2025 1 0:39am Bipolar disorder acute January 10:37am Major depression acute January 10:37am acute January 25, 2025 10:37am Supervision of high-risk acute January 25, 2025 1 0:37am Anxiety resolved January 25, 2025 10:37am Back pain affecting resolv ed January 25, 2025 10:37am GERD (gastroesophageal reflu x disease) resolved January 25, 2025 1 0:37am Bipolar disorder acute January 11:35am Major depression acute January 11:35am acute February 05 11:35am Supervision of high-risk acute February 05, 2025 11:35am Anxiety resolved February 05 11:35am Back pain affecting resolv ed February 05, 2025 11:35am GERD (gastroesophageal reflu x disease) resolved February 05, 2025 11:35am Bipolar disorder acute January 1:28pm Major depression acute January 1:28pm acute February 12 1:28pm Supervision of high-risk acute February 12, 2025 1:28pm Anxiety resolved February 12 1:28pm Back pain affecting resolv ed February 12, 2025 1:28pm GERD (gastroesophageal reflu x disease) resolved February 12, 2025 1:28pm Bipolar disorder acute February 8:33am Major depression acute February 8:33am acute February 17, 2025 8:33am Supervision of high-risk acute February 17, 2025 8 :33am Anxiety resolved February 17, 2025 8:33am Back pain affecting resolv ed February 17, 2025 8:33am GERD (gastroesophageal reflu x disease) resolved February 17, 2025 8 :33am Bipolar disorder acute February 3:17pm delivery delivered acute February 20, 2025 3:17pm Major depression acute February 3:17pm acute February 20, 2025 3:17pm Supervision of high-risk acute February 20, 2025 3 :17pm Anxiety resolved February 20, 2025 3:17pm Back pain affecting resolv ed February 20, 2025 3:17pm Category II heart rate tracing during labor and delivery resolved February 20, 2025 3 :17pm GERD (gastroesophageal reflu x disease) resolved February 20, 2025 3 :17pm depression acute Feb 2:38pm delivery delivered acute March 12, 2025 10:18am [facility] Work Phone: 1(905) 298-776004-14-2025 Evaluation note* Diagnosis Onset Date Resolution Status Admit Date Bipolar disorder acute November 302024 9:55am Major depression acute November 302024 9:55am acute November 30 9:55am Supervision of high-risk acute November 30, 2024 9:55am Anxiety resolved November 30 9:55am Dysthymia resolved November 30 9:55am Former electronic cigarette use reso lved November 30, 2024 9:55am Bipolar disorder acute December 012024 5:30pm Major depression acute December 012024 5:30pm acute December 01 5:30pm Supervision of high-risk acute December 01, 2024 5:30pm Anxiety resolved December 01 5:30pm Dysthymia resolved December 01 5:30pm Former electronic cigarette use reso lved December 01, 2024 5:30pm Gastroenteritis resolved November 5:30pm Bipolar disorder acute December 18, 2024 9:34am Major depression acute December 18, 2024 9:34am acute December 18, 2024 9:34am Supervision of high-risk acute December 18, 2024 9: 34am Anxiety resolved December 18, 2024 9:34am GERD (gastroesophageal reflu x disease) resolved December 18, 2024 9: 34am Bipolar disorder acute December 20, 2024 4:50pm Major depression acute December 20, 2024 4:50pm acute December 20, 2024 4:50pm Supervision of high-risk acute December 20, 2024 4: 50pm Anxiety resolved December 20, 2024 4:50pm Back pain affecting resolv ed December 20, 2024 4:50pm GERD (gastroesophageal reflu x disease) resolved December 20, 2024 4: 50pm Bipolar disorder acute December 1:50pm Major depression acute December 1:50pm acute December 28, 2024 1:50pm Supervision of high-risk acute December 28, 2024 1 :50pm Anxiety resolved December 28, 2024 1:50pm Back pain affecting resolv ed December 28, 2024 1:50pm GERD (gastroesophageal reflu x disease) resolved December 28, 2024 1 :50pm Bipolar disorder acute December 10:39am Major depression acute December 10:39am acute January 14, 2025 10:39am Supervision of high-risk acute January 14, 2025 1 0:39am Anxiety resolved January 14, 2025 10:39am Back pain affecting resolv ed January 14, 2025 10:39am GERD (gastroesophageal reflu x disease) resolved January 14, 2025 1 0:39am Bipolar disorder acute January 10:37am Major depression acute January 10:37am acute January 25, 2025 10:37am Supervision of high-risk acute January 25, 2025 1 0:37am Anxiety resolved January 25, 2025 10:37am Back pain affecting resolv ed January 25, 2025 10:37am GERD (gastroesophageal reflu x disease) resolved January 25, 2025 1 0:37am Bipolar disorder acute January 11:35am Major depression acute January 11:35am acute February 05 11:35am Supervision of high-risk acute February 05, 2025 11:35am Anxiety resolved February 05 11:35am Back pain affecting resolv ed February 05, 2025 11:35am GERD (gastroesophageal reflu x disease) resolved February 05, 2025 11:35am Bipolar disorder acute January 1:28pm Major depression acute January 1:28pm acute February 12 1:28pm Supervision of high-risk acute February 12, 2025 1:28pm Anxiety resolved February 12 1:28pm Back pain affecting resolv ed February 12, 2025 1:28pm GERD (gastroesophageal reflu x disease) resolved February 12, 2025 1:28pm Bipolar disorder acute February 8:33am Major depression acute February 8:33am acute February 17, 2025 8:33am Supervision of high-risk acute February 17, 2025 8 :33am Anxiety resolved February 17, 2025 8:33am Back pain affecting resolv ed February 17, 2025 8:33am GERD (gastroesophageal reflu x disease) resolved February 17, 2025 8 :33am Bipolar disorder acute February 3:17pm delivery delivered acute February 20, 2025 3:17pm Major depression acute February 3:17pm acute February 20, 2025 3:17pm Supervision of high-risk acute February 20, 2025 3 :17pm Anxiety resolved February 20, 2025 3:17pm Back pain affecting resolv ed February 20, 2025 3:17pm Category II heart rate tracing during labor and delivery resolved February 20, 2025 3 :17pm GERD (gastroesophageal reflu x disease) resolved February 20, 2025 3 :17pm depression acute Feb 2:38pm delivery delivered acute March 12, 2025 10:18am Candidiasis of breast acute Mar 11:15am depression acute Mar 11:15am [facility] Work Phone: 1(188) 784-725804-03-2025 Evaluation note* Diagnosis Onset Date Resolution Status Admit Date Bipolar disorder acute November 10:52am Major depression acute November 10:52am acute November 19 10:52am Supervision of high-risk acute November 19, 2024 10:52am Anxiety resolved November 19 10:52am Dysthymia resolved November 19 10:52am Former electronic cigarette use reso lved November 19, 2024 10:52am Bipolar disorder acute November 302024 9:55am Major depression acute November 302024 9:55am acute November 30 9:55am Supervision of high-risk acute November 30, 2024 9:55am Anxiety resolved November 30 9:55am Dysthymia resolved November 30 9:55am Former electronic cigarette use reso lved November 30, 2024 9:55am Bipolar disorder acute December 012024 5:30pm Major depression acute December 012024 5:30pm acute December 01 5:30pm Supervision of high-risk acute December 01, 2024 5:30pm Anxiety resolved December 01 5:30pm Dysthymia resolved December 01 5:30pm Former electronic cigarette use reso lved December 01, 2024 5:30pm Gastroenteritis resolved November 5:30pm Bipolar disorder acute December 18, 2024 9:34am Major depression acute December 18, 2024 9:34am acute December 18, 2024 9:34am Supervision of high-risk acute December 18, 2024 9: 34am Anxiety resolved December 18, 2024 9:34am GERD (gastroesophageal reflu x disease) resolved December 18, 2024 9: 34am Bipolar disorder acute December 20, 2024 4:50pm Major depression acute December 20, 2024 4:50pm acute December 20, 2024 4:50pm Supervision of high-risk acute December 20, 2024 4: 50pm Anxiety resolved December 20, 2024 4:50pm Back pain affecting resolv ed December 20, 2024 4:50pm GERD (gastroesophageal reflu x disease) resolved December 20, 2024 4: 50pm Bipolar disorder acute December 1:50pm Major depression acute December 1:50pm acute December 28, 2024 1:50pm Supervision of high-risk acute December 28, 2024 1 :50pm Anxiety resolved December 28, 2024 1:50pm Back pain affecting resolv ed December 28, 2024 1:50pm GERD (gastroesophageal reflu x disease) resolved December 28, 2024 1 :50pm Bipolar disorder acute December 10:39am Major depression acute December 10:39am acute January 14, 2025 10:39am Supervision of high-risk acute January 14, 2025 1 0:39am Anxiety resolved January 14, 2025 10:39am Back pain affecting resolv ed January 14, 2025 10:39am GERD (gastroesophageal reflu x disease) resolved January 14, 2025 1 0:39am Bipolar disorder acute January 10:37am Major depression acute January 10:37am acute January 25, 2025 10:37am Supervision of high-risk acute January 25, 2025 1 0:37am Anxiety resolved January 25, 2025 10:37am Back pain affecting resolv ed January 25, 2025 10:37am GERD (gastroesophageal reflu x disease) resolved January 25, 2025 1 0:37am Bipolar disorder acute January 11:35am Major depression acute January 11:35am acute February 05 11:35am Supervision of high-risk acute February 05, 2025 11:35am Anxiety resolved February 05 11:35am Back pain affecting resolv ed February 05, 2025 11:35am GERD (gastroesophageal reflu x disease) resolved February 05, 2025 11:35am Bipolar disorder acute January 1:28pm Major depression acute January 1:28pm acute February 12 1:28pm Supervision of high-risk acute February 12, 2025 1:28pm Anxiety resolved February 12 1:28pm Back pain affecting resolv ed February 12, 2025 1:28pm GERD (gastroesophageal reflu x disease) resolved February 12, 2025 1:28pm Bipolar disorder acute February 8:33am Major depression acute February 8:33am acute February 17, 2025 8:33am Supervision of high-risk acute February 17, 2025 8 :33am Anxiety resolved February 17, 2025 8:33am Back pain affecting resolv ed February 17, 2025 8:33am GERD (gastroesophageal reflu x disease) resolved February 17, 2025 8 :33am Bipolar disorder acute February 3:17pm delivery delivered acute February 20, 2025 3:17pm Major depression acute February 3:17pm acute February 20, 2025 3:17pm Supervision of high-risk acute February 20, 2025 3 :17pm Anxiety resolved February 20, 2025 3:17pm Back pain affecting resolv ed February 20, 2025 3:17pm Category II heart rate tracing during labor and delivery resolved February 20, 2025 3 :17pm GERD (gastroesophageal reflu x disease) resolved February 20, 2025 3 :17pm depression acute Feb 2:38pm [facility] Work Phone: 1(195) 207-976603-24-2025 Evaluation note* Diagnosis Onset Date Resolution Status [...] of high-risk acute February 12, 2025 1:28pm [facility] Work Phone: 1(612) 381-237803-24-2025 Evaluation note* Diagnosis Onset Date Resolution Status [...] high-risk acute February 17, 2025 8 :33am [facility] Work Phone: 1(458) 411-388703-24-2025 Evaluation note* Diagnosis Onset Date Resolution Status [...] high-risk acute February 17, 2025 8 :33am Anxiety acute February 20, 2025 3:17pm Back pain affecting acute February 20, 2025 3:17pm Bipolar disorder acute February 3:17pm Category II heart rate tracing during labor and delivery acute February 20, 2025 3 :17pm delivery delivered acute February 20, 2025 3:17pm GERD (gastroesophageal reflu x disease) acute February 20, 2025 3 :17pm Major depression acute February 3:17pm acute February 20, 2025 3:17pm Supervision of high-risk acute February 20, 2025 3 :17pm [facility] Work Phone: 1(527) 599-343603-24-2025 Evaluation note* Diagnosis Onset Date Resolution Status Admit Date Bipolar disorder acute November 092024 11:18am Major depression acute November 092024 11:18am acute November 09 11:18am Supervision of high-risk acute November 09, 2024 11:18am Anxiety resolved November 09 11:18am Dysthymia resolved November 09 11:18am Former electronic cigarette use reso lved November 09, 2024 11:18am Bipolar disorder acute November 10:52am Major depression acute November 10:52am acute November 19 10:52am Supervision of high-risk acute November 19, 2024 10:52am Anxiety resolved November 19 10:52am Dysthymia resolved November 19 10:52am Former electronic cigarette use reso lved November 19, 2024 10:52am Bipolar disorder acute November 302024 9:55am Major depression acute November 302024 9:55am acute November 30 9:55am Supervision of high-risk acute November 30, 2024 9:55am Anxiety resolved November 30 9:55am Dysthymia resolved November 30 9:55am Former electronic cigarette use reso lved November 30, 2024 9:55am Bipolar disorder acute December 012024 5:30pm Major depression acute December 012024 5:30pm acute December 01 5:30pm Supervision of high-risk acute December 01, 2024 5:30pm Anxiety resolved December 01 5:30pm Dysthymia resolved December 01 5:30pm Former electronic cigarette use reso lved December 01, 2024 5:30pm Gastroenteritis resolved November 5:30pm Bipolar disorder acute December 18, 2024 9:34am Major depression acute December 18, 2024 9:34am acute December 18, 2024 9:34am Supervision of high-risk acute December 18, 2024 9: 34am Anxiety resolved December 18, 2024 9:34am GERD (gastroesophageal reflu x disease) resolved December 18, 2024 9: 34am Bipolar disorder acute December 20, 2024 4:50pm Major depression acute December 20, 2024 4:50pm acute December 20, 2024 4:50pm Supervision of high-risk acute December 20, 2024 4: 50pm Anxiety resolved December 20, 2024 4:50pm Back pain affecting resolv ed December 20, 2024 4:50pm GERD (gastroesophageal reflu x disease) resolved December 20, 2024 4: 50pm Bipolar disorder acute December 1:50pm Major depression acute December 1:50pm acute December 28, 2024 1:50pm Supervision of high-risk acute December 28, 2024 1 :50pm Anxiety resolved December 28, 2024 1:50pm Back pain affecting resolv ed December 28, 2024 1:50pm GERD (gastroesophageal reflu x disease) resolved December 28, 2024 1 :50pm Bipolar disorder acute December 10:39am Major depression acute December 10:39am acute January 14, 2025 10:39am Supervision of high-risk acute January 14, 2025 1 0:39am Anxiety resolved January 14, 2025 10:39am Back pain affecting resolv ed January 14, 2025 10:39am GERD (gastroesophageal reflu x disease) resolved January 14, 2025 1 0:39am Bipolar disorder acute January 10:37am Major depression acute January 10:37am acute January 25, 2025 10:37am Supervision of high-risk acute January 25, 2025 1 0:37am Anxiety resolved January 25, 2025 10:37am Back pain affecting resolv ed January 25, 2025 10:37am GERD (gastroesophageal reflu x disease) resolved January 25, 2025 1 0:37am Bipolar disorder acute January 11:35am Major depression acute January 11:35am acute February 05 11:35am Supervision of high-risk acute February 05, 2025 11:35am Anxiety resolved February 05 11:35am Back pain affecting resolv ed February 05, 2025 11:35am GERD (gastroesophageal reflu x disease) resolved February 05, 2025 11:35am Bipolar disorder acute January 1:28pm Major depression acute January 1:28pm acute February 12 1:28pm Supervision of high-risk acute February 12, 2025 1:28pm Anxiety resolved February 12 1:28pm Back pain affecting resolv ed February 12, 2025 1:28pm GERD (gastroesophageal reflu x disease) resolved February 12, 2025 1:28pm Bipolar disorder acute February 8:33am Major depression acute February 8:33am acute February 17, 2025 8:33am Supervision of high-risk acute February 17, 2025 8 :33am Anxiety resolved February 17, 2025 8:33am Back pain affecting resolv ed February 17, 2025 8:33am GERD (gastroesophageal reflu x disease) resolved February 17, 2025 8 :33am Bipolar disorder acute February 3:17pm delivery delivered acute February 20, 2025 3:17pm Major depression acute February 3:17pm acute February 20, 2025 3:17pm Supervision of high-risk acute February 20, 2025 3 :17pm Anxiety resolved February 20, 2025 3:17pm Back pain affecting resolv ed February 20, 2025 3:17pm Category II heart rate tracing during labor and delivery resolved February 20, 2025 3 :17pm GERD (gastroesophageal reflu x disease) resolved February 20, 2025 3 :17pm [facility] Work Phone: 1(801) 781-215903-02-2025 NoteDischarge Instructions Discharge Summary [address] [place] [address] [id number] 10/12/2024 Patient: ERIKA PINEDA Sex: Female : 2005 Age: 19y Thank you for visiting [facility]. You have been evaluated today by Ronaldo [...] of 9 Discharge Instructions Patient Signature Facility Furniture Technician Date/Time General Instructions with ExitWriter [address] [address] [id number] 10/12/2024 Patient: ERIKA PINEDA Sex: Female : 2005 Age: 19y Thank you for visiting [facility]. You have been evaluated today by Ronaldo [...] 2 of 9 Discharge Instructions Discharge Summary [address] [place] [address] [id number] 10/12/2024 Patient: ERIKA PINEDA Sex: Female : 2005 Age: 19y Thank you for visiting [facility]. You have been evaluated today by George Watson D.O. for the following condition(s): Principal Diagnosis Influenza type A with upper respiratory infection. Probable costochondritis INSTRUCTIONS Rest. Prescription Medications: Reglan 10 mg tablet: Take 1 tablet by mouth three times a day prn for nausea/vomiting for 7 days, dispense 21 tablet. Refills 0. Pharmacy: [facility] [id number] [place] [address]. Follow-up: Follow up with your doctor in three days. Call for an appointment. You have been given the following additional information: Chest Wall Pain: Costochondritis Influenza (Adult) 3 of 9 Discharge Instructions Patient Signature Facility Furniture Technician Date/Time General Instructions with ExitWriter [address] [address] [phone] 10/12/2024 Patient: ERIKA PINEDA Sex: Female : 2005 Age: 19y Thank you for visiting [facility]. You have been evaluated today by George Watson D.O. for the following condition(s): Principal Diagnosis Influenza type A with upper respiratory infection. Probable costochondritis INSTRUCTIONS Rest. Prescription Medications: Reglan 10 mg tablet: Take 1 tablet by mouth three times a day prn for nausea/vomiting for 7 days, dispense 21 tablet. Refills 0. Pharmacy: [facility] [id number] [place] [address]. Follow-up: Follow up with your doctor in [...] signs listed below. Home (more content not included)...[facility]02-23-2025 Telephone encounter Note* Telephone Encounter - Charlene Talavera RN - 10/11/2024 5:49 PM EST Reason for Call: flu Outcome: See PCP within 24 hours Patient was conferenced to Mel in Appointment Center for PCP scheduling. Reason for Disposition [1] Fever 100.4 F (38.0 C) or higher AND [2] lasts > 3 days Answer Assessment - Initial Assessment Questions 1. TEMPERATURE: 101F 2. ONSET: This morning, seen at [facility] this morning, symptoms not improving 3. CHILLS: Shaking chills , they are mild 4. CAUSE: Cough and vomiting four times today since returning from the [facility] 5. CONTACTS: No 6. TREATMENT: Tamiflu taken , nothing else so far. 7. IMMUNOCOMPROMISE: no 8. OTHER SYMPTOMS: Headache pain is 5/10 Mild decrease in movement today 9. MCKENZIE: 02/22/25 10. TRAVEL: no Protocols used: [id number], - [id number] [facility]02-23-2025 Miscellaneous Notes* Telephone Encounter - Charlene Talavera RN - 10/11/2024 5:49 PM EST Reason for Call: flu Outcome: See PCP within 24 hours Patient was conferenced to Mel in Appointment Center for PCP scheduling. Reason for Disposition [1] Fever 100.4 F (38.0 C) or higher AND [2] lasts > 3 days Answer Assessment - Initial Assessment Questions 1. TEMPERATURE: 101F 2. ONSET: This morning, seen at [facility] this morning, symptoms not improving 3. CHILLS: Shaking chills , they are mild 4. CAUSE: Cough and vomiting four times today since returning from the [facility] 5. CONTACTS: No 6. TREATMENT: Tamiflu taken , nothing else so far. 7. IMMUNOCOMPROMISE: no 8. OTHER SYMPTOMS: Headache pain is 5/10 Mild decrease in movement today 9. MCKENZIE: 02/22/25 10. TRAVEL: no Protocols used: Zhyae-LUQCG-XE, - Ubskx-QFIYZ-SV documented in this encounterTrinity Health System East Campus02-23-2025 MmbrLGDW-YMY-1 (AGENT OF COVID-19) RNA: Not detected INFLUENZA A RNA: Detected INFLUENZA B RNA: Not detected RESPIRATORY SYNCYTIAL VIRUS (RSV) RNA: Not detectedAcmc Healthcare SystemComment on above:Performed By: #### [id number] #### [facility] CLIA [id number] [address] [place], [place] [address]294502-23-2025 NoteHNO ID: [id number] Author: IKER MORROW APRN.LUMBER DRIVER Service: ? Author Type: Nurse Practitioner Type: [...] in place 04/12/2021 Recurrent major depressive disorder ([facility]) 07/30/2023 Suicide attempt by acetaminophen overdose ([facility]) 03/03/2023 also on 06/2022 PAST SURGICAL [...] Patient agreeable to treatment plan. Iker Morrow APRN.[facility]02-23-2025 History of Present illness Narrative* Iker Morrow APRN.[facility] - 10/11/2024 11:09 AM EST CC: Patient [...] plan. Iker Morrow APRN.HAJA documented in this encounterTrinity Health System East Campus02-20-2025 Evaluation note* Diagnosis Onset Date Resolution Status [...] high-risk acute January 14, 2025 1 0:39am [facility] Work Phone: 1(287) 604-290802-20-2025 Evaluation note* Diagnosis Onset Date Resolution Status Admit Date Anxiety acute October 08, 2024 9:28am Bipolar disorder acute October 08, 2024 9:28am Major depression acute October 08, 2024 9:28am acute October 08, 2024 9:28am Supervision of high-risk acute October 08, 025 9:28am Dysthymia resolved October 08, 2024 9:28am [...] high-risk acute January 25, 2025 1 0:37am [facility] Work Phone: 1(329) 494-120002-20-2025 Evaluation note* Diagnosis Onset Date Resolution Status [...] of high-risk acute February 05, 2025 11:35am [facility] Work Phone: 1(904) 589-752112-26-2024 Evaluation note* Diagnosis Onset Date Resolution Status Admit Date Anxiety acute August 13, 2024 8:30am Bipolar disorder acute August 13, 2024 8:30am Dysthymia acute August 13, 2024 8:30am Former electronic cigarette use acute August 13 8:30am Major depression acute August 13, 2024 8:30am acute August 13, 2024 8:30am Supervision of high-risk acute August 13, 024 8:30am Anxiety acute August 24 10:34am Bipolar [...] of high-risk acute November 30, 2024 9:55am [facility] Work Phone: 1(362) 787-649602-03-2024 Reason for referral (narrative)* Consultation (Routine) - Authorized Specialty Diagnoses / Procedures Referred By Christian t Referred To Contact Family Medicine / Primary Care Tanesha Guevara PA-C [facility] [place] [address] Referral ID Status Reason Start Date Expiration Date Visits Requested Visits Authorized [id number] Authorized Specialty Services Required 09/21/2023 09/20/2024 1 1 [facility] Work Phone: 1(527) 138-932412-12-2023 Miscellaneous Notes* Telephone Encounter - Lizet Mcfadden LPCC - 07/30/2023 10:13 AM EST Behavioral Health Social Work Progress Note Patient identified for [facility] from: PCP Reason for referral: Resources Behavioral Health Resources: Psychiatry med management [facility] encounter type: Telephone Encounter Attempts to Outreach: 1 attempt Patient Discharged?: No Patient reported that caregiver was able to meet their needs today?: N/A Phone call placed today that went to [facility]. Left my contact information and brief nature of call. Initial outreach also completed via [facility] offering patient [facility] assessment. GREG Balderas-S July 30, 2023 documented in this encounterTrinity Health System East Campus06-07-2023 Miscellaneous Notes* Telephone Encounter - Fela Fraga RN - 01/23/2023 6:55 PM EDT Spoke with patient. She states her [facility] PIGMENT MIXER did call her back , reviewed her symptoms and prescribed Progesterone. Fela Fraga RN * Telephone Encounter - Yee Sanchez APRN.CNP - 01/23/2023 6:02 PM EDT Schedule with [facility] gynecology, she does not need a referral Yee Sanchez APRN.HAJA * Telephone Encounter - Fela Fraga RN - 01/23/2023 4:07 PM EDT See triage note on 01/21. Patient calling to say she has a recurrence of and an increase in vaginalbleeding today with a few small clots. She says she called her PIGMENT MIXER @ [facility] and spoke with a nurse. She was instructed to call her PCP. She is willing to see PIGMENT MIXER here at [facility]. Fela Fraga RN documented in this encounterTrinity Health System East Campus06-05-2023 Miscellaneous Notes* Telephone Encounter - Deb Awad RN - 01/21/2023 7:45 PM EDT Reason for Call: Had one episode of slight vaginal bleeding a short time ago. Her period ended a week ago. Outcome: Suggested that she see her doctor if bleeding continues. She will call her warehouse coordinator doctor at [facility] to discuss with him. Reason for Disposition [...] as 3 out of 10, saw an warehouse coordinator recently and was diagnosed with an ovarian cyst. 6. : no chance of , does not use control 7. : N/A 8. HORMONES: none 9. BLOOD THINNERS: none 10. CAUSE: unknown 11. HEMODYNAMIC STATUS: feels a little weak, but just donated plasma 1 1/2 hours ago 12. OTHER SYMPTOMS:none Protocols used: Vaginal Bleeding - Mieakbdi-QKDPZ-LB documented in this encounterTrinity Health System East Campus04-14-2023 History of Present illness Narrative* Iker Morrow APRN.LUMBER DRIVER - 11/30/2022 7:45 AM EDT Images from [...] history is provided by the patient. No speech language pathologist assistant was used. Rash Review of Systems Constitutional: [...] anymore. Iker Morrow APRN.CNP documented in this encounterTrinity Health System East Campus11-15-2022 Instructions* Patient Instructions* Barbara Ellison APRN.CNP - 07/03/2022 6:33 PM EST covid and flu test ordered You will be notified in 12-24 hours, results available on [facility] Home isolation until covid results are [...] breath, inability to swallow. documented in this encounterTrinity Health System East Campus11-15-2022 History of Present illness Narrative* Barbara Ellison APRN.CNP - 07/03/2022 6:29 PM EST Subjective The history is provided by the patient. No speech language pathologist assistant was used. HPI Erika Pineda is a [...] have confirmed and edited as necessary, the [facility] Review of Systems Constitutional: Negative for chills [...] in 12-24 hours with results, available on [employer]hart - COVID WITH FLUA+B, ROUTINE Diagnosis and treatment plan were discussed and questions were answered to the patient's satisfaction. Pt acknowledged understanding of concepts and follow up plan. Specific signs and symptoms that would indicate the need for higher level of care were discussed indetail warranting prompt ER evaluation. Barbara Ellison APRN.HAJA documented in this encounterTrinity Health System East Campus08-05-2022 History of Past illness Narrative* Problem Noted Date Resolved Date Infection due to Chlamydia species 03/23/2022 03/23/2022 documented as of this encounter (statuses as of 07/04/2022) [facility]08-05-2022 History of Past illness Narrative* Problem Noted Date Resolved Date Infection due to Chlamydia species 03/23/2022 03/23/2022 documented as of this encounter (statuses as of 11/30/2022) [facility]08-05-2022 History of Past illness Narrative* Problem Noted Date Resolved Date Infection due to Chlamydia species 03/23/2022 03/23/2022 documented as of this encounter (statuses as of 01/22/2023) [facility]08-05-2022 History of Past illness Narrative* Problem Noted Date Resolved Date Infection due to Chlamydia species 03/23/2022 03/23/2022 documented as of this encounter (statuses as of 01/24/2023) [facility]08-05-2022 History of Past illness Narrative* Problem Noted Date Diagnosed Date Resolved Date Infection due to Chlamydia species 03/23/2022 03/23/2022 Breakthrough bleeding 03/23/20222022 documented as of this encounter (statuses as of 07/30/2023) [facility]08-05-2022 History of Present illness Narrative* Jorge Bearden MD - 03/23/2022 8:43 AM EDT This note was created using Clicktivatedriter. Subjective Patient presents with: Establish Care Anxiety: 1 year or more Eirka Pineda was here for above. 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 She was seeing [facility] for gynecology. PAST MEDICAL HISTORY Diagnosis Date [...] bleeding - ICD9: 626.6, ICD10: N92.1 Seeing [facility] gynecology. She will have Nexplanon removed. FDA warning discussed. - ZAFEMY 150 MCG-35 MCG/24 HR TRANSDERMAL PATCH Jorge Bearden MD documented in this encounterTrinity Health System East Campus08-05-2022 Instructions* Patient Instructions* Jorge Bearden MD - 03/23/2022 8:41 AM EDT ASK FOR 3RD DOSE OF GARDASIL. documented in this encounterTrinity Health System East CampusEvaluation note* Diagnosis Anxiety and depression- Primary Dysthymic disorder Chronic tension-type headache, not intractable Chronic tension type headache Atrophy of skin and soft tissue Unspecified hypertrophic and atrophic condition of skin Breakthrough bleeding Metrorrhagia documented in this encounter [facility] CampusEvalumidd[facility] emergency [facility] note* Diagnosis Onset Date Resolution Status Breakthrough bleeding on Nexplanon acute Pelvic pain acute [facility] Work Phone: Evaluation note* Diagnosis Onset Date Resolution Status Breakthrough bleeding on Nexplanon acute Pelvic pain acute Breakthrough bleeding on Nexplanon acute Encounter for routine gynecological examination noneactive [facility] Work Phone: Evaluation note* Diagnosis URI with cough and congestion- Primary documented in this encounter [facility] CampusEvaluation note* Diagnosis Rash- Primary Rash and other nonspecific skin eruption documented in this encounter [facility] CampusEvaluation note* Diagnosis Onset Date Resolution Status Irregular menstrual bleeding acute Pelvic pain acute [facility] Work Phone: Evaluation note* Diagnosis Bipolar depression ([facility])- Primary Bipolar I disorder, most recent episode (or current) depressed, unspecified documented in this encounter [facility] Work Phone: Evaluation noteNo assessment information available [facility] Work Phone: Evaluation note* Diagnosis Sore throat- Primary Acute pharyngitis URI, acute Acute upper respiratory infections of unspecified site documented in this encounter [facility] CampusHistory of Past illness Narrative* Problem Noted Date Resolved Date Infection due to Chlamydia species 03/23/2022 03/23/2022 documented as of this encounter (statuses as of 03/23/2022) [facility] CampusProgress note Author Bernarda Weber [facility] Note Date/Time January 14, 2025 11:07 am [facility] [address], [address] [place] [address] OFFICE VISIT Date of Service: 01/14/25 MR#: [id number] Acct: [id number] Name: ERIKA PINEDA Rep #: [id number] : 2005 Provider: MANINDER Weber Age/Sex: 19/F Location: [facility] Status: Signed Intake Vital Signs 08/13/24 08:33 08/13/24 09:09 12/18/24 09:39 12/28/24 14:02 01/14/25 10:44 Height 5 ft 1 in 5 ft 1 in 5 ft 1 in 5 ft 1 in 5 ft 1 in Weight: 185 lb BMI 34.9 BP 108/74 Intake Visit Reasons: 34 wk ob Chief Complaint: 34wk OB Research Laboratory Specialist Required: No Is patient in pain?: No [...] family current occupational status: employed current occupation: [employer] pets and animals: Yes (Avoid litterbox) pets [...] physical activity do you participate in: none susana/nondenominational: None seatbelt use: always do you feel [...] tive -?-?-?-?-?-?-?-?-?-?-?-?- Negative 163 -?-?-?-?-?-?-?-?-?-?-?-?- MH-No VB. Concetta snowden/sharon sent. Br US confirm FHT. PN [...] and Symptoms of Preeclampsia, Feeding No , Sharon Education and Family Medical Leave or Disability [...] fallen in the past year?: No 01/14/25 1107 <Electronically signed by Bernarda fxo CNM> Date _ Bernarda Weber CNM Cosigner Signature: Date (if applicable) CC: ~ [facility] Work Phone: Progress note Author Lizet Flynn [facility] Note Date/Time January 25, 2025 11:07 am [facility] [address], [address] [place] [address] OFFICE VISIT Date of Service: 01/25/25 MR#: [id number] Acct: [id number] Name: ERIKA PINEDA Rep #: [id number] : 2005 Provider: Dr. Kenya Sood DO Age/Sex: 19/F Location: [facility] Status: Signed Intake Vital Signs 08/13/24 09:09 09/11/24 11:09 01/14/25 10:44 01/25/25 10:43 01/25/25 10:45 Height 5 ft 1 in 5 ft 1 in 5 ft 1 in 5 ft 1 in 5 ft 1 in Weight: 187 lb 4 oz BMI 35.4 BP 106/62 Intake Visit Reasons: 36 wk ob Research Laboratory Specialist Required: No Is patient in pain?: No [...] family current occupational status: employed current occupation: [employer] pets and animals: Yes (Avoid litterbox) pets [...] physical activity do you participate in: none susana/nondenominational: None seatbelt use: always do you feel [...] Symptoms of Preeclampsia, Infant Feeding No , Education and Family Medical [...] by Lizet Grayson DO> Date _ Lizet Sood DO Cosigner Signature: Date (if applicable) CC: ~ [facility] Work Phone: Progress note Author Bernarda Weber [facility] Note Date/Time February 05, 2025 11:5 [facility] [address], [address] [place] [address] OFFICE VISIT Date of Service: 02/05/25 MR#: [id number] Acct: [id number] Name: ERIKA PINEDA DOUGLAS Rep #: [id number] : 2005 Provider: MANINDER Weber Age/Sex: 19/F Location: [facility] Status: Signed Intake Vital Signs 08/13/24 09:09 01/25/25 10:45 02/05/25 11:38 Height 5 ft 1 in 5 ft 1 in 5 ft 1 in Weight: 188 lb 2 oz BMI 35.5 BP 126/83 H Intake Visit Reasons: 37 wk ob Chief Complaint: 37 Week OB Research Laboratory Specialist Required: No Is patient in pain?: No [...] family current occupational status: employed current occupation: [employer] pets and animals: Yes (Avoid litterbox) pets [...] physical activity do you participate in: none susana/nondenominational: None seatbelt use: always do you feel [...] Symptoms of Preeclampsia, Infant Feeding No , Education and Family Medical [...] this visit. [place] appropriate handout given. 02/05/25 2976 <Electronically signed by Bernarda fox CNM> Date _ Bernarda Weber CNM Cosigner Signature: Date (if applicable) CC: ~ [facility] Work Phone: Progress note Author Mar Quigley [facility] Note Date/Time February 12, 2025 1:45 pm [facility] [address], [address] [place] [address] OFFICE VISIT Date of Service: 02/12/25 MR#: [id number] Acct: [id number] Name: ERIKA PINEDA DOUGLAS Rep #: [id number] : 2005 Provider: Dr. Ganesh Quigley MD Age/Sex: 19/F Location: [facility] Status: Signed Intake Vital Signs 08/13/24 09:09 02/05/25 11:38 02/12/25 13:31 Height 5 ft 1 in 5 ft 1 in 5 ft 1 in Weight: 187 lb 4 oz BMI 35.4 BP 112/76 Intake Visit Reasons: 38 wk ob Research Laboratory Specialist Required: No Is patient in pain?: No [...] family current occupational status: employed current occupation: [employer] pets and animals: Yes (Avoid litterbox) pets [...] physical activity do you participate in: none susana/nondenominational: None seatbelt use: always do you feel [...] trimester Comment: PRR, , MCKENZIE 02/20/25, girl Zachariah Ramos (4) : Status: Acute Qualifiers: Weeks of [...] lundberg MD> Date _ Mar Quigley MD Cosign Signature: Date (if applicable) CC: ~ [facility] Work Phone: Progress note Author Bernarda Weber [facility] Note Date/Time February 17, 2025 9:18a m [facility] [address] [place] [address], [address] [place] [address] OFFICE VISIT Date of Service: 02/17/25 MR#: [id number] Acct: [id number] Name: ERIKA PINEDA Rep #: [id number] : 2005 Provider: MANINDER Weber Age/Sex: 19/F Location: [facility] Status: Signed Intake Vital Signs 02/12/25 13:31 02/12/25 13:54 02/17/25 08:35 02/17/25 08:41 Height 5 ft 1 in 5 ft 1 in 5 ft 1 in 5 ft 1 in Weight: 189 lb 8 oz BMI 35.8 BP 132/84 H 121/82 H Intake Visit Reasons: 39wk ob Research Laboratory Specialist Required: No Is patient in pain?: No [...] family current occupational status: employed current occupation: [employer] pets and animals: Yes (Avoid litterbox) pets [...] physical activity do you participate in: none susana/nondenominational: None seatbelt use: always do you feel [...] 122/71 Nega tive -?-?-?-?-?-?-?-?-?-?-?-?- Negative 163 -?-?-?-?-?-?-?-?-?-?-?-?- -No VB. Nause a persists/janellean sent. Br US [...] and Symptoms of Preeclampsia, Feeding No , Sharon Education and Family Medical Leave or Disability [...] GERD (gastroesophageal reflux disease): Status: Acute Comment: pepcijordon (3) Supervision of high-risk : Status: Acute Qualifiers: Trimester: second trimester Qualified Code(s): O09.92 - Supervision of high risk , unspecified, second trimester Comment: PRR, , MCKENZIE 02/20/25, girl Zachariah BF Richard (4) : Status: Acute Qualifiers: [...] at this visit. [place] appropriate handout given. 02/17/25917 <Electronically signed by Bernarda fox CNM> Date _ Bernarda Weber CNM Cosigner Signature: Date (if applicable) CC: ~ [facility] Work Phone: Progress note Author Jenny Mejia [facility] Note Date/Time March 12, 2025 10:[address] [place] [address] Women[facility] [address], [address] [place] [address] OFFICE VISIT Date of Service: 03/12/25 MR#: [id number] Acct: [id number] Name: ERIKA PINEDA DOUGLAS Rep #: [id number] : 2005 Provider: MANINDER Mejia Age/Sex: 19/F Location: [facility] Status: Signed Intake Vital Signs 02/20/25 14:32 03/01/25 14:41 03/12/25 10:26 03/12/25 10:27 Height 5 ft 1 in 5 ft 1 in 5 ft 1 in 5 ft 1 in Weight: 166 lb BMI 31.4 BP 100/61 Intake Visit Reasons: 2wk incision check Research Laboratory Specialist Required: No Is patient in pain?: No Allergies No Known Allergies Allergy (Verified 03/12/25 10:26) Medications 3 ?Medication ?Instructions ?Recorded ?Confirmed ?Type zuranolone 25 mg capsule (Zurzuvae) 50 mg (2 x 25 mg) PO QDAY 14 days 03/01/25 03/12/25 Rx #28 caps Is last menstrual period known: No Post menopausal: No Patient : No : Yes PFSH Medical History Irregular menstrual bleeding Seasonal allergies Hx of trauma Surgical History H/O oral surgery Social History adopted: No household members: family current occupational status: employed current occupation: [employer] pets and animals: Yes (Avoid litterbox) pets [...] physical activity do you participate in: none susana/nondenominational: None seatbelt use: always do you feel safe at home: Yes additional social history: BF Richard- [employer] HPI 2wk incision check Details: ERIKA PINEDA is a 19 year old who presents for 2 week incision check and ppdcheck. feeling much better even without starting zurzurvae. Female Reproductive History Cycle Length: 21-35 Questions: metorrhagia: No, sexually active: Yes, dyspareunia: No and PCB: No History 1 Elective abortions Hx Para 1 Spontaneous abortions Hx # Term Pregnancies Ectopic pregnancies Hx # Pregnancies Multiple births # of living children 1 Past Pregnancies Del. Date Name GA/Weeks Outcome Route Bth Weight Gen Labor Lgth Anesthesia Del [facility] Provider FOB 02/21/25 Gerri 40 live - full term 7lb 7oz [facility] ROS Const Constitutional: Reports system reviewed and no additional complaints, except as documented GI GI: Denies abdominal pain, constipation, nausea or vomiting : Denies pelvic pain, urinary frequency, urinary incontinence, urinary hesitancy, urinary urgency, vaginal discharge, vaginal dryness, vaginal odor or vaginal pruritus Musc Musc: Reports system reviewed and no additional complaints, except as documented Skin Skin/Breast: Reports system reviewed and no additional complaints, except as documented Psych Psych: Reports system reviewed and no additional complaints, except as documented Endo Endo: Denies system reviewed and no additional complaints, except as documented Ramiro/Lymph Hematologic/Lymphatic: Reports system reviewed and no additional complaints, except as documented Exam Const General: cooperative, healthy appearing, comfortable and no acute distress Resp Effort & Inspection: normal respiratory effort and able to speak in complete sentences GI Inspection: normal to inspection and incision Palpation: soft Other: incision: CDI, no s/sx of infection Skin General: no rashes or lesions noted Coding Level of Care Code No Charge Diagnoses delivery delivered O82 Additional Codes PHQ-9 (32991) Assessment and Plan Assessment and Plan (1) delivery delivered: Status: Acute Comment: JW/LC girl Plan Details Additional Comments: s/p LTCS 2week pp 1. routine post care 2. breast feeding- support given 3. 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) Reason for Visit Breakthrough bleedin g on [...] Supervision of high-risk Febru pat 2024 9:28am Dysthymia October 08, 2024 9:28am [...] Supervision of high-risk Febru pat 2024 9:28am Dysthymia October 08, 2024 9:28am [...] 10:37 am GERD (gastroesophageal reflux disease) J [facility] 2024 10:37am Major depression January 25, 2025 10:37 am January 25, 2025 10:37 am Supervision of high-risk January 25, 2025 10:37am Anxiety February 05, 2025 11:3 5am Back pain affecting February 05, 2025 11:35am Bipolar disorder February 05, 2025 11:3 5am GERD (gastroesophageal reflux disease) J [facility] 2024 11:35am Major depression February 05, [...] 2024 9:34am GERD (gastroesophageal reflux disease) M 2024 9:34am Major depression December 18, 2024 [...] 10:39 am GERD (gastroesophageal reflux disease) M 2024 10:39am Major depression January 14, 2025 10:39 am January 14, 2025 10:39 am Supervision of high-risk December 182024 10:39am Anxiety January 25, 2025 10:37 am Back pain affecting January 25, 2025 10:37am Bipolar disorder January 25, 2025 10:37 am GERD (gastroesophageal reflux disease) J [facility] 2024 10:37am Major depression January 25, 2025 10:37 am January 25, 2025 10:37 am Supervision of high-risk January 25, 2025 10:37am Anxiety February 05, 2025 11:3 5am Back pain affecting February 05, 2025 11:35am Bipolar disorder February 05, 2025 11:3 5am GERD (gastroesophageal reflux disease) J une 2024 11:35am Major depression February 05, 2025 [...] 10:37 am GERD (gastroesophageal reflux disease) J [facility] 2024 10:37am Major depression January 25, 2025 10:37 am January 25, 2025 10:37 am Supervision of high-risk January 25, 2025 10:37am Anxiety February 05, 2025 11:3 5am Back pain affecting February 05, 2025 11:35am Bipolar disorder February 05, 2025 11:3 5am GERD (gastroesophageal reflux disease) J [facility] 2024 11:35am Major depression February 05, 2025 11:3 5am February 05, 2025 11:3 5am Supervision of high-risk February 05, 2025 11:35am Anxiety February 12, 2025 1:28 pm Back pain affecting February 12, 2025 1:28pm Bipolar disorder February 12, 2025 1:28 pm GERD (gastroesophageal reflux disease) [facility] 2024 1:28pm Major depression February 12, 2025 1:28 pm February 12, 2025 1:28 pm Supervision of high-risk February 12, 2025 1:28pm Anxiety February 17, 2025 8:33a m Back pain affecting February 17, 2025 8:33am Bipolar disorder February 17, 2025 8:33a m GERD (gastroesophageal reflux disease) [facility] 2024 8:33am Major depression February 17, 2025 8:33a m February 17, 2025 8:33a m Supervision of high-risk February 17, 2025 8:33am Chief Complaint Admit Date 24 wk ob [...] 39wk ob February 17, 2025 8:33a m C SECTION February 20, 2025 3:17p m LABOR February 20, 2025 4:03p m C SECTION February 21, 2025 4:38a m C SECTION February 22, 2025 8:31a m C SECTION February 23, 2025 8:06a m Reason for Visit Admit Date Anxiety [...] 11:3 5am GERD (gastroesophageal reflux disease) J une 2024 11:35am Major depression February 05, 2025 11:3 5am February 05, 2025 11:3 5am Supervision of high-risk February 05, 2025 11:35am Anxiety February 12, 2025 1:28 pm Back pain affecting February 12, 2025 1:28pm Bipolar disorder February 12, 2025 1:28 pm GERD (gastroesophageal reflux disease) J [facility] 2024 1:28pm Major depression February 12, 2025 1:28 pm February 12, 2025 1:28 pm Supervision of high-risk February 12, 2025 1:28pm Anxiety February 17, 2025 8:33a m Back pain affecting February 17, 2025 8:33am Bipolar disorder February 17, 2025 8:33a m GERD (gastroesophageal reflux disease) J varun 2024 8:33am Major depression February 17, 2025 8:33a m February 17, 2025 8:33a m Supervision of high-risk February 17, 2025 8:33am Anxiety February 20, 2025 3:17p m Back pain affecting February 20, 2025 3:17pm Bipolar disorder February 20, 2025 3:17p m Category II heart rate tracing during labor and delivery February 20, 2025 3:17pm delivery delivered February 20 3:17pm GERD (gastroesophageal reflux disease) J [facility] 2024 3:17pm Major depression February 20, 2025 3:17p m February 20, 2025 3:17p m Supervision of high-risk February 20, 2025 3:17pm Chief Complaint Admit Date 24 wk ob [...] 39wk ob February 17, 2025 8:33a m C SECTION February 20, 2025 3:17p m LABOR February 20, 2025 4:03p m C SECTION February 21, 2025 4:38a m C SECTION February 22, 2025 8:31a m C SECTION February 23, 2025 8:06a m PPD March 01, 2025 2:38 pm Reason for Visit Admit Date Bipolar disorder November 09, 2024 11: 18am Major depression November 09, 2024 11: 18am November 09, 2024 11: 18am Supervision of high-risk November 09, 2024 11:18am Anxiety November 09, 2024 11: 18am Dysthymia November 09, 2024 11: 18am Former electronic cigarette use November [id number] 11:18am Bipolar disorder November 19, 2024 10:5 2am Major depression November 19, 2024 10:5 2am November 19, 2024 10:5 2am Supervision of high-risk November 19, 2024 10:52am Anxiety November 19, 2024 10:5 2am Dysthymia November 19, 2024 10:5 2am Former electronic cigarette use November 10:52am Bipolar disorder November 30, 2024 9:5 5am Major depression November 30, 2024 9:5 5am November 30, 2024 9:5 5am Supervision of high-risk November 30, 2024 9:55am Anxiety November 30, 2024 9:5 5am Dysthymia November 30, 2024 9:5 5am Former electronic cigarette use November 302024 9:55am Bipolar disorder December 01, 2024 5:3 0pm Major depression December 01, 2024 5:3 0pm December 01, 2024 5:3 0pm Supervision of high-risk December 01, 2024 5:30pm Anxiety December 01, 2024 5:3 0pm Dysthymia December 01, 2024 5:3 0pm Former electronic cigarette use December 012024 5:30pm Gastroenteritis December 01, 2024 5:3 0pm Bipolar disorder December 18, 2024 9:34am Major depression December 18, 2024 9:34am December 18, 2024 9:34am Supervision of high-risk December 182024 9:34am Anxiety December 18, 2024 9:34am GERD (gastroesophageal reflux disease) M ay 2024 9:34am Bipolar disorder December 20, 2024 4:50pm Major depression December 20, 2024 4:50pm December 20, 2024 4:50pm Supervision of high-risk December 202024 4:50pm Anxiety December 20, 2024 4:50pm Back pain affecting December 20, 4:50pm GERD (gastroesophageal reflux disease) M ay 2024 4:50pm Bipolar disorder December 28, 2024 1:50p m Major depression December 28, 2024 1:50p m December 28, 2024 1:50p m Supervision of high-risk December [id number] 1:50pm Anxiety December 28, 2024 1:50p m Back pain affecting December 28, 2024 1:50pm GERD (gastroesophageal reflux disease) M ay 2024 1:50pm Bipolar disorder January 14, 2025 10:39 am Major depression January 14, 2025 10:39 am January 14, 2025 10:39 am Supervision of high-risk December 182024 10:39am Anxiety January 14, 2025 10:39 am Back pain affecting January 14, 2025 10:39am GERD (gastroesophageal reflux disease) M ay 2024 10:39am Bipolar disorder January 25, 2025 10:37 am Major depression January 25, 2025 10:37 am January 25, 2025 10:37 am Supervision of high-risk January 25, 2025 10:37am Anxiety January 25, 2025 10:37 am Back pain affecting January 25, 2025 10:37am GERD (gastroesophageal reflux disease) J une 2024 10:37am Bipolar disorder February 05, 2025 11:3 5am Major depression February 05, 2025 11:3 5am February 05, 2025 11:3 5am Supervision of high-risk February 05, 2025 11:35am Anxiety February 05, 2025 11:3 5am Back pain affecting February 05, 2025 11:35am GERD (gastroesophageal reflux disease) J une 2024 11:35am Bipolar disorder February 12, 2025 1:28 pm Major depression February 12, 2025 1:28 pm February 12, 2025 1:28 pm Supervision of high-risk February 12, 2025 1:28pm Anxiety February 12, 2025 1:28 pm Back pain affecting February 12, 2025 1:28pm GERD (gastroesophageal reflux disease) J [facility] 2024 1:28pm Bipolar disorder February 17, 2025 8:33a m Major depression February 17, 2025 8:33a m February 17, 2025 8:33a m Supervision of high-risk February 17, 2025 8:33am Anxiety February 17, 2025 8:33a m Back pain affecting February 17, 2025 8:33am GERD (gastroesophageal reflux disease) [facility] 2024 8:33am Bipolar disorder February 20, 2025 3:17p m delivery delivered February 20 3:17pm Major depression February 20, 2025 3:17p m February 20, 2025 3:17p m Supervision of high-risk February 20, 2025 3:17pm Anxiety February 20, 2025 3:17p m Back pain affecting February 20, 2025 3:17pm Category II heart rate tracing during labor and delivery February 20, 2025 3:17pm GERD (gastroesophageal reflux disease) [facility] 2024 3:17pm Chief Complaint Admit Date decreased movement [id number] November 10:52am 28 wk [...] 39wk ob February 17, 2025 8:33a m C SECTION February 20, 2025 3:17p m LABOR February 20, 2025 4:03p m C SECTION February 21, 2025 4:38a m C SECTION February 22, 2025 8:31a m C SECTION February 23, 2025 8:06a m PPD March 01, 2025 2:38 pm 2wk incision check March 12, 2025 10:1 8am Reason for Visit Admit Date Bipolar disorder November 19, 2024 10:5 2am Major depression November 19, 2024 10:5 2am November 19, 2024 10:5 2am Supervision of high-risk November 19, 2024 10:52am Anxiety November 19, 2024 10:5 2am Dysthymia November 19, 2024 10:5 2am Former electronic cigarette use November 10:52am Bipolar disorder November 30, 2024 9:5 5am Major depression November 30, 2024 9:5 5am November 30, 2024 9:5 5am Supervision of high-risk November 30, 2024 9:55am Anxiety November 30, 2024 9:5 5am Dysthymia November 30, 2024 9:5 5am Former electronic cigarette use November 302024 9:55am Bipolar disorder December 01, 2024 5:3 0pm Major depression December 01, 2024 5:3 0pm December 01, 2024 5:3 0pm Supervision of high-risk December 01, 2024 5:30pm Anxiety December 01, 2024 5:3 0pm Dysthymia December 01, 2024 5:3 0pm Former electronic cigarette use December 012024 5:30pm Gastroenteritis December 01, 2024 5:3 0pm Bipolar disorder December 18, 2024 9:34am Major depression December 18, 2024 9:34am December 18, 2024 9:34am Supervision of high-risk December 182024 9:34am Anxiety December 18, 2024 9:34am GERD (gastroesophageal reflux disease) M ay 2024 9:34am Bipolar disorder December 20, 2024 4:50pm Major depression December 20, 2024 4:50pm December 20, 2024 4:50pm Supervision of high-risk December 202024 4:50pm Anxiety December 20, 2024 4:50pm Back pain affecting December 20 4:50pm GERD (gastroesophageal reflux disease) M ay 2024 4:50pm Bipolar disorder December 28, 2024 1:50p m Major depression December 28, 2024 1:50p m December 28, 2024 1:50p m Supervision of high-risk December 172024 1:50pm Anxiety December 28, 2024 1:50p m Back pain affecting December 28, 2024 1:50pm GERD (gastroesophageal reflux disease) M ay 2024 1:50pm Bipolar disorder January 14, 2025 10:39 am Major depression January 14, 2025 10:39 am January 14, 2025 10:39 am Supervision of high-risk December 182024 10:39am Anxiety January 14, 2025 10:39 am Back pain affecting January 14, 2025 10:39am GERD (gastroesophageal reflux disease) [facility] 2024 10:39am Bipolar disorder January 25, 2025 10:37 am Major depression January 25, 2025 10:37 am January 25, 2025 10:37 am Supervision of high-risk January 25, 2025 10:37am Anxiety January 25, 2025 10:37 am Back pain affecting January 25, 2025 10:37am GERD (gastroesophageal reflux disease) J [facility] 2024 10:37am Bipolar disorder February 05, 2025 11:3 5am Major depression February 05, 2025 11:3 5am February 05, 2025 11:3 5am Supervision of high-risk February 05, 2025 11:35am Anxiety February 05, 2025 11:3 5am Back pain affecting February 05, 2025 11:35am GERD (gastroesophageal reflux disease) J [facility] 2024 11:35am Bipolar disorder February 12, 2025 1:28 pm Major depression February 12, 2025 1:28 pm February 12, 2025 1:28 pm Supervision of high-risk February 12, 2025 1:28pm Anxiety February 12, 2025 1:28 pm Back pain affecting February 12, 2025 1:28pm GERD (gastroesophageal reflux disease) J [facility] 2024 1:28pm Bipolar disorder February 17, 2025 8:33a m Major depression February 17, 2025 8:33a m February 17, 2025 8:33a m Supervision of high-risk February 17, 2025 8:33am Anxiety February 17, 2025 8:33a m Back pain affecting February 17, 2025 8:33am GERD (gastroesophageal reflux disease) [facility] 2024 8:33am Bipolar disorder February 20, 2025 3:17p m delivery delivered February 20 3:17pm Major depression February 20, 2025 3:17p m February 20, 2025 3:17p m Supervision of high-risk February 20, 2025 3:17pm Anxiety February 20, 2025 3:17p m Back pain affecting February 20, 2025 3:17pm Category II heart rate tracing during labor and delivery February 20, 2025 3:17pm GERD (gastroesophageal reflux disease) [facility] 2024 3:17pm depression March 01, 2025 2: 38pm Chief Complaint Admit Date 28 wk ob/glucose November 30, 2024 9:5 [...] 39wk ob February 17, 2025 8:33a m C SECTION February 20, 2025 3:17p m LABOR February 20, 2025 4:03p m C SECTION February 21, 2025 4:38a m C SECTION February 22, 2025 8:31a m C SECTION February 23, 2025 8:06a m PPD March 01, 2025 2:38 pm 2wk incision check March 12, 2025 10:1 8am 2wk ppv FU *per LC March 26, 2025 11: 15am Reason for Visit Admit Date Bipolar disorder November 30, 2024 9:5 5am Major depression November 30, 2024 9:5 5am November 30, 2024 9:5 5am Supervision of high-risk November 30, 2024 9:55am Anxiety November 30, 2024 9:5 5am Dysthymia November 30, 2024 9:5 5am Former electronic cigarette use November 302024 9:55am Bipolar disorder December 01, 2024 5:3 0pm Major depression December 01, 2024 5:3 0pm December 01, 2024 5:3 0pm Supervision of high-risk December 01, 2024 5:30pm Anxiety December 01, 2024 5:3 0pm Dysthymia December 01, 2024 5:3 0pm Former electronic cigarette use December [id number] 5:30pm Gastroenteritis December 01, 2024 5:3 0pm Bipolar disorder December 18, 2024 9:34am Major depression December 18, 2024 9:34am December 18, 2024 9:34am Supervision of high-risk December 182024 9:34am Anxiety December 18, 2024 9:34am GERD (gastroesophageal reflux disease) M ay 2024 9:34am Bipolar disorder December 20, 2024 4:50pm Major depression December 20, 2024 4:50pm December 20, 2024 4:50pm Supervision of high-risk December 202024 4:50pm Anxiety December 20, 2024 4:50pm Back pain affecting December 20, 4:50pm GERD (gastroesophageal reflux disease) M ay 2024 4:50pm Bipolar disorder December 28, 2024 1:50p m Major depression December 28, 2024 1:50p m December 28, 2024 1:50p m Supervision of high-risk December 172024 1:50pm Anxiety December 28, 2024 1:50p m Back pain affecting December 28, 2024 1:50pm GERD (gastroesophageal reflux disease) M ay 2024 1:50pm Bipolar disorder January 14, 2025 10:39 am Major depression January 14, 2025 10:39 am January 14, 2025 10:39 am Supervision of high-risk December 182024 10:39am Anxiety January 14, 2025 10:39 am Back pain affecting January 14, 2025 10:39am GERD (gastroesophageal reflux disease) [facility] 2024 10:39am Bipolar disorder January 25, 2025 10:37 am Major depression January 25, 2025 10:37 am January 25, 2025 10:37 am Supervision of high-risk January 25, 2025 10:37am Anxiety January 25, 2025 10:37 am Back pain affecting January 25, 2025 10:37am GERD (gastroesophageal reflux disease) J [facility] 2024 10:37am Bipolar disorder February 05, 2025 11:3 5am Major depression February 05, 2025 11:3 5am February 05, 2025 11:3 5am Supervision of high-risk February 05, 2025 11:35am Anxiety February 05, 2025 11:3 5am Back pain affecting February 05, 2025 11:35am GERD (gastroesophageal reflux disease) J [facility] 2024 11:35am Bipolar disorder February 12, 2025 1:28 pm Major depression February 12, 2025 1:28 pm February 12, 2025 1:28 pm Supervision of high-risk February 12, 2025 1:28pm Anxiety February 12, 2025 1:28 pm Back pain affecting February 12, 2025 1:28pm GERD (gastroesophageal reflux disease) [facility] 2024 1:28pm Bipolar disorder February 17, 2025 8:33a m Major depression February 17, 2025 8:33a m February 17, 2025 8:33a m Supervision of high-risk February 17, 2025 8:33am Anxiety February 17, 2025 8:33a m Back pain affecting February 17, 2025 8:33am GERD (gastroesophageal reflux disease) J [facility] 2024 8:33am Bipolar disorder February 20, 2025 3:17p m delivery delivered February 20 3:17pm Major depression February 20, 2025 3:17p m February 20, 2025 3:17p m Supervision of high-risk February 20, 2025 3:17pm Anxiety February 20, 2025 3:17p m Back pain affecting February 20, 2025 3:17pm Category II heart rate tracing during labor and delivery February 20, 2025 3:17pm GERD (gastroesophageal reflux disease) J [facility] 2024 3:17pm depression March 01, 2025 2: 38pm delivery delivered March 12, 025 10:18am Chief Complaint Admit Date 28 wk ob/glucose November 30, 2024 9:5 [...] 39wk ob February 17, 2025 8:33a m C SECTION February 20, 2025 3:17p m LABOR February 20, 2025 4:03p m C SECTION February 21, 2025 4:38a m C SECTION February 22, 2025 8:31a m C SECTION February 23, 2025 8:06a m PPD March 01, 2025 2:38 pm 2wk incision check March 12, 2025 10:1 8am 2wk ppv FU *per LC March 26, 2025 11: 15am PE/NON DOT PHYSICAL/[facility] March 26, 2025 12:15pm PE/QUANTIFERON, FIT TEST/[facility] March 26, 2025 12:16pm Reason for Visit Admit Date Bipolar disorder November 30, 2024 9:5 5am Major depression November 30, 2024 9:5 5am November 30, 2024 9:5 5am Supervision of high-risk November 30, 2024 9:55am Anxiety November 30, 2024 9:5 5am Dysthymia November 30, 2024 9:5 5am Former electronic cigarette use November 302024 9:55am Bipolar disorder December 01, 2024 5:3 0pm Major depression December 01, 2024 5:3 0pm December 01, 2024 5:3 0pm Supervision of high-risk December 01, 2024 5:30pm Anxiety December 01, 2024 5:3 0pm Dysthymia December 01, 2024 5:3 0pm Former electronic cigarette use December [id number] 5:30pm Gastroenteritis December 01, 2024 5:3 0pm Bipolar disorder December 18, 2024 9:34am Major depression December 18, 2024 9:34am December 18, 2024 9:34am Supervision of high-risk December 182024 9:34am Anxiety December 18, 2024 9:34am GERD (gastroesophageal reflux disease) M ay 2024 9:34am Bipolar disorder December 20, 2024 4:50pm Major depression December 20, 2024 4:50pm December 20, 2024 4:50pm Supervision of high-risk December 202024 4:50pm Anxiety December 20, 2024 4:50pm Back pain affecting December 20 4:50pm GERD (gastroesophageal reflux disease) M ay 2024 4:50pm Bipolar disorder December 28, 2024 1:50p m Major depression December 28, 2024 1:50p m December 28, 2024 1:50p m Supervision of high-risk December 172024 1:50pm Anxiety December 28, 2024 1:50p m Back pain affecting December 28, 2024 1:50pm GERD (gastroesophageal reflux disease) M ay 2024 1:50pm Bipolar disorder January 14, 2025 10:39 am Major depression January 14, 2025 10:39 am January 14, 2025 10:39 am Supervision of high-risk December 182024 10:39am Anxiety January 14, 2025 10:39 am Back pain affecting January 14, 2025 10:39am GERD (gastroesophageal reflux disease) M ay 2024 10:39am Bipolar disorder January 25, 2025 10:37 am Major depression January 25, 2025 10:37 am January 25, 2025 10:37 am Supervision of high-risk January 25, 2025 10:37am Anxiety January 25, 2025 10:37 am Back pain affecting January 25, 2025 10:37am GERD (gastroesophageal reflux disease) J [facility] 2024 10:37am Bipolar disorder February 05, 2025 11:3 5am Major depression February 05, 2025 11:3 5am February 05, 2025 11:3 5am Supervision of high-risk February 05, 2025 11:35am Anxiety February 05, 2025 11:3 5am Back pain affecting February 05, 2025 11:35am GERD (gastroesophageal reflux disease) J [facility] 2024 11:35am Bipolar disorder February 12, 2025 1:28 pm Major depression February 12, 2025 1:28 pm February 12, 2025 1:28 pm Supervision of high-risk February 12, 2025 1:28pm Anxiety February 12, 2025 1:28 pm Back pain affecting February 12, 2025 1:28pm GERD (gastroesophageal reflux disease) J [facility] 2024 1:28pm Bipolar disorder February 17, 2025 8:33a m Major depression February 17, 2025 8:33a m February 17, 2025 8:33a m Supervision of high-risk February 17, 2025 8:33am Anxiety February 17, 2025 8:33a m Back pain affecting February 17, 2025 8:33am GERD (gastroesophageal reflux disease) [facility] 2024 8:33am Bipolar disorder February 20, 2025 3:17p m delivery delivered February 20 3:17pm Major depression February 20, 2025 3:17p m February 20, 2025 3:17p m Supervision of high-risk February 20, 2025 3:17pm Anxiety February 20, 2025 3:17p m Back pain affecting February 20, 2025 3:17pm Category II heart rate tracing during labor and delivery February 20, 2025 3:17pm GERD (gastroesophageal reflux disease) J [facility] 2024 3:17pm depression March 01, 2025 2: 38pm delivery delivered March 12, 2 025 10:18am Candidiasis of breast March 26, 2025 1 1:15am depression March 26, 2025 1 1:15am Health Concerns Infection Onset Date Last Indicated [...] Do you have a Healthcare Power of Keyboard Operator? No 2024 2:15pm Advance Directive Response Recorded Date/ Time Do you have a Healthcare Power of Keyboard Operator? No February 20, 2025 4:46pm Additional Source Comments Source Comments (unrecognize d section and content) In the event this informatio n is protected by the Federal Confidentiality of Alcohol and Drug Abuse Patient Records regulations: The Federal rules restrict any use of the information to criminally investigate or prosecute any alcohol or drug abuse patient.[facility] the event this information is protected by the Federal Confidentiality of Alcohol and Drug Abuse Patient Records regulations: The Federal rules restrict any use of the information to criminally investigate or prosecute any alcohol or drug abuse patient.[facility] the event this information is protected by the Federal Confidentiality of Alcohol and Drug Abuse Patient Records regulations: The Federal rules restrict any use of the information to criminally investigate or prosecute any alcohol or drug abuse patient.[facility] the event this information is protected by the Federal Confidentiality of Alcohol and Drug Abuse Patient Records regulations: The Federal rules restrict any use of the information to criminally investigate or prosecute any alcohol or drug abuse patient.[facility] the event this information is protected by the Federal Confidentiality of Alcohol and Drug Abuse Patient Records regulations: The Federal rules restrict any use of the information to criminally investigate or prosecute any alcohol or drug abuse patient.[facility] the event this information is protected by the Federal Confidentiality of Alcohol and Drug Abuse Patient Records regulations: The Federal rules restrict any use of the information to criminally investigate or prosecute any alcohol or drug abuse patient.[facility] the event this information is protected by the Federal Confidentiality of Alcohol and Drug Abuse Patient Records regulations: The Federal rules restrict any use of the information to criminally investigate or prosecute any alcohol or drug abuse patient.[facility] Campus[facility] the event this information is protected by the Federal Confidentiality of Alcohol and Drug Abuse Patient Records regulations: The Federal rules restrict any use of the information to criminally investigate or prosecute any alcohol or drug abuse patient.[facility] Reason for Visit (unrecogniz ed section and content) Reason Comments Establish Care Anxiety 1 year or more Reason Comments Nasal Congestion drainage, bilateral ear pain, cough and sore throat x 2-3 days Reason Comments Rash Hives, widespread x1 day, possible allergic reaction Reason Comments Vaginal Bleeding Reason Comments consult Reason Comments Anxiety Amb to ED with repor t of anxiety and depression. Takes Wellbutrin, but feels that her s/s have been getting worse. Called the [facility] Crisis line today and was advised to come to ER. She denies any SI or HI. Pt is calm, tearful and cooperative. Reason Comments Shortness of Breath Cough, chest congest ion, low fever x last night Reason Comments Fever Care Teams (unrecognized sec tion and content) Solid [employer] Relationship Specialty Start Date End Date Jorge Bearden MD [address] [place] [address] PCP - General Internal Medicine 03/23/22 Solid Waste Engineer Relationship Specialty Start Date End Date Jorge Bearden MD [address], [place] [id number] PCP - General Internal Medicine 03/23/22 Solid Waste Engineer Relationship Specialty Start Date End Date Jorge Bearden MD [address], [place] [id number] PCP - General Internal Medicine 03/23/22 Solid Waste Engineer Relationship Specialty Start Date End Date Jorge Bearden MD [address] [facility], [place] [address] PCP - General Internal Medicine 03/23/22 Team [...] CNM Attending Provider, Referring Pr ovider Active Solid Waste Engineer Relationship Specialty Start Date End Date Jorge Bearden MD [address] [facility], [place] [id number] PCP - General Internal Medicine 03/23/22 Solid Waste Engineer Relationship Specialty Start Date End Date Jorge Bearden MD [address] [facility], [place] [address] PCP - General Internal Medicine 03/23/22 Solid Waste Engineer Relationship Specialty Start Date End Date Jorge Bearden MD [address] [facility], [place] [id number] PCP - General 02/03/23 Team Status: Inactive Member Role Status Dates Dr. Jorge Bearden MD Primary Care Provider Active Ed Physician Provider Emergency Provider Active Solid Waste Engineer Relationship Specialty Start Date End Date Jorge Bearden MD [address] [facility], [place] [id number] PCP - General Internal Medicine 03/23/22 Yee Carter, MESSAGE BROKER DEVELOPER.LUMBER DRIVER [address] [facility] [place] [address] [facility] Internal Medicine 07/27/24 Solid Waste Engineer Relationship Specialty Start Date End Date Jorge Bearden MD [address] [place] [address] PCP - General Internal Medicine 03/23/22 Yee Carter, MESSAGE BROKER DEVELOPER.LUMBER DRIVER [address] [place] [address] [facility] Internal Medicine 07/27/24 Team Status: Inactive Member Role Status Dates Dr. Jorge Bearden MD Primary Care Provider Active Start: August 13, 2024 End: August 13, 2024 Dr. Jorge Bearden MD Referring Provider Active Start: August 13, 2024 End: August 13, 2024 Jolene Lamar NUISANCE ANIMAL DAMAGE CONTROL AGENT, NUISANCE ANIMAL DAMAGE CONTROL AGENT-C Attending Provider Active Start: August 13, 2024 End: August 13, 2024 Team Status: Inactive Member Role Status Dates Dr. Jorge Bearden MD Primary Care Provider Active Start: August 13, 2024 End: August 13, 2024 Jolene Lamar NUISANCE ANIMAL DAMAGE CONTROL AGENT, NUISANCE ANIMAL DAMAGE CONTROL AGENT-C Attending Provider Active Start: August 13, 2024 End: August 13, 2024 Jolene Lamar NP, NUISANCE ANIMAL DAMAGE CONTROL AGENT-C Referring Provider Active Start: August 13, 2024 [...] Active Start: November 30, 2024 Dr. Lizet Vande Velde , DO Attending Provider Activ e Start: November 30, 2024 Dr. Lizet Sood , DO Referring Provider Activ e Start: November 30, 2024 Team Status: Inactive Member Role Status Dates Dr. Jorge Bearden MD Primary Care Provider Active Start: December 01, 2024 End: December 01, 2024 Dr. Lizet Sood DO Attending Provider Activ e Start: December 01, 2024 End: December 01, 2024 Dr. Lizet Sood , DO Referring Provider Activ e Start: December 01, 2024 End: December 01, 2024 Team Status: Inactive Member Role Status Dates Dr. Jorge Bearden MD Primary Care Provider Active Start: November 30, 2024 End: November 30, 2024 Dr. Lizet Sood , DO Attending Provider Activ e Start: November [...] Start: December 01, 2024 Dr. Lizet Sood , Other Provider Active Start: December 01, 2024 [...] February 17, 2025 End: February 17, 2025 Team Status: Inactive Member Role/Relationship Status Dates Dr. Alfredo Burns MD Admit Provider Active Start : February 20, 2025 End: February 23, 2025 Dr. Alfredo Burns MD Attending Provider Active S tart: February 20, 2025 End: February 23, 2025 Team Status: Active Member Role/Relationship Status Dates Jenny Mejia CNM Admit Provider Active Star t: February 20, 2025 Jenny Mejia CNM Attending Provider Active Start: February 20, 2025 Jenny Mejia CNM Other Provider Active Star t: February 20, 2025 Team Status: Active Member Role/Relationship Status Dates Dr. Alfredo Burns MD Admit Provider Active Start : February 21, 2025 Dr. Alfredo Burns MD Attending Provider Active S tart: February 21, 2025 Dr. Alfredo Burns MD Other Provider Active Start : February 21, 2025 Team Status: Active Member Role/Relationship Status Dates Dr. Alfredo Burns MD Admit Provider Active Start : February 22, 2025 Dr. Alfredo Burns MD Other Provider Active Start : February 22, 2025 Bernarda Weber CNM Attending Provider Active S tart: February 22, 2025 Team Status: Active Member Role/Relationship Status Dates Dr. Alfredo Burns MD Admit Provider Active Start : February 23, 2025 Dr. Alfredo Burns MD Other Provider Active Start : February 23, 2025 Jenny Mejia CNM Attending Provider Active Start: February 23, 2025 Team Status: Inactive Member Role/Relationship Status Dates Dr. Lizet Sood DO Attending Provider Activ e Start: March 01, 2025 End: March 01, 2025 Team Status: Inactive Member Role/Relationship Status [...] February 17, 2025 End: February 17, 2025 Team Status: Inactive Member Role/Relationship Status Dates Dr. Alfredo Burns MD Admit Provider Active Start : February 20, 2025 End: February 23, 2025 Dr. Alfredo Burns MD Attending Provider Active S tart: February 20, 2025 End: February 23, 2025 Team Status: Active Member Role/Relationship Status Dates Jenny Mejia CNM Admit Provider Active Star t: February 20, 2025 Jenny Mejia CNM Attending Provider Active Start: February 20, 2025 Jenny Mejia CNM Other Provider Active Star t: February 20, 2025 Team Status: Active Member Role/Relationship Status Dates Dr. Alfredo Burns MD Admit Provider Active Start : February 21, 2025 Dr. Alfredo Burns MD Attending Provider Active S tart: February 21, 2025 Dr. Alfredo Burns MD Other Provider Active Start : February 21, 2025 Team Status: Active Member Role/Relationship Status Dates Dr. Alfredo Burns MD Admit Provider Active Start : February 22, 2025 Dr. Alfredo Burns MD Other Provider Active Start : February 22, 2025 Bernarda Weber CNM Attending Provider Active S tart: February 22, 2025 Team Status: Active Member Role/Relationship Status Dates Dr. Alfredo Burns MD Admit Provider Active Start : February 23, 2025 Dr. lAfredo Burns MD Other Provider Active Start : February 23, 2025 Jenny Mejia CNM Attending Provider Active Start: February 23, 2025 Team Status: Inactive Member Role/Relationship Status Dates Dr. Lizet Sood DO Attending Provider Activ e Start: March 01, 2025 End: March 01, 2025 Team Status: Inactive Member Role/Relationship Status Dates Jenny Mejia CNM Attending Provider Active Start: March 12, 2025 End: March 12, 2025 Team Status: Inactive Member Role/Relationship [...] February 17, 2025 End: February 17, 2025 Team Status: Inactive Member Role/Relationship Status Dates Dr. Alfredo Burns MD Admit Provider Active Start : February 20, 2025 End: February 23, 2025 Dr. Alfredo Burns MD Attending Provider Active S tart: February 20, 2025 End: February 23, 2025 Team Status: Active Member Role/Relationship Status Dates Jenny Mejia CNM Admit Provider Active Star t: February 20, 2025 Jenny Mejia CNM Attending Provider Active Start: February 20, 2025 Jenny Mejia CNM Other Provider Active Star t: February 20, 2025 Team Status: Active Member Role/Relationship Status Dates Dr. Alfredo Burns MD Admit Provider Active Start : February 21, 2025 Dr. Alfredo Burns MD Attending Provider Active S tart: February 21, 2025 Dr. Alfredo Burns MD Other Provider Active Start : February 21, 2025 Team Status: Active Member Role/Relationship Status Dates Dr. Alfredo Burns MD Admit Provider Active Start : February 22, 2025 Dr. Alfredo Burns MD Other Provider Active Start : February 22, 2025 Bernarda Weber CNM Attending Provider Active S tart: February 22, 2025 Team Status: Active Member Role/Relationship Status Dates Dr. Alfredo Burns MD Admit Provider Active Start : February 23, 2025 Dr. Alfredo Burns MD Other Provider Active Start : February 23, 2025 Jenny Mejia CNM Attending Provider Active Start: February 23, 2025 Team Status: Inactive Member Role/Relationship Status Dates Dr. Lizet Sood DO Attending Provider Activ e Start: March 01, 2025 End: March 01, 2025 Team Status: Inactive Member Role/Relationship Status Dates Jenny Mejia CNM Attending Provider Active Start: March 12, 2025 End: March 12, 2025 Team Status: Inactive Member Role/Relationship Status Dates Jenny Mejia CNM Attending Provider Active Start: March 26, 2025 End: March 26, 2025 Team Status: Inactive Member Role/Relationship Status Dates MARLEY Hall Attending Provider Active Sta rt: March 26, 2025 End: March 26, 2025 Team Status: Inactive Member Role/Relationship Status Dates MARLEY Hall Attending Provider Active Sta rt: March 26, 2025 End: March 26, 2025 Goals (unrecognized section and content) Goals [...] section and content) DATE CREATED AUTHOR 07/09/2022 [facility] DATE CREATED AUTHOR AUTHOR'S ORGANIZ ATION 04/11/2023 [facility] DATE CREATED AUTHOR AUTHOR'S ORGANIZ ATION 09/28/2023 [facility] DATE CREATED AUTHOR AUTHOR'S ORGANIZ ATION 09/25/2024 [facility] DATE CREATED AUTHOR AUTHOR'S ORGANIZ ATION 10/12/2024 [facility] DATE CREATED AUTHOR AUTHOR'S ORGANIZ ATION 10/19/2024 [facility] DATE CREATED AUTHOR AUTHOR'S ORGANIZ ATION 04/16/2025 [facility] <item><item> Privacy Markings (unrecogniz ed section and [...] BE BASED ON THE PRIMARY CLINICAL RECORDS. [employer] provides no warranty or guarantee of the accuracy or completeness of information in this document.
--- NOTE | 2025-04-19 21:07 | EDS_ITS ---
HPI History of Present Illness Chief Complaint: Headache Informant: patient Onset/Context/Timing Onset: Days Context: Onset (Awoke with a headache Saturday.) Timing: Continuous Quality -Headache: Positive for Sharp Current Severity: Moderate Maximum Severity: Moderate Associated Symptoms/Injury Associated Symptoms: Positive for Nausea, Photophobia and Visual Loss; Negative for Fever, Vomiting, Sore Throat, Sinus Pressure, Numbness, Tingling, Preceding Aura or Blurred Vision Injury - PÉREZ: Negative for Direct Trauma, Fall or Assault Narrative Narrative: 19-year-old female complaining of left-sided headache behind her eyes since Saturday she woke up with it Saturday. Associated nausea no vomiting or diarrhea. No trauma. No fever. She is on no blood thinners. There is no family history of aneurysms or spontaneous intracranial bleeds. She typically does not get headaches like this. She denies any sinus congestion. States yesterday started having trouble with her left eye vision. She is photophobic with sonophobia. She denies any fever. Prior similar symptoms: No Recent Illness/Hospitalization: No PFSH PFS Medical History Migraine Contraceptive management Seasonal allergies Hx of trauma Irregular menstrual bleeding Home Medications ?Medication ?Instructions ?Recorded ?Last Taken ?Type sumatriptan succinate 25 mg tablet See Rx Instructions PO .COMPLEX #7 04/19/25 Unknown Rx (Imitrex) tabs Allergy/AdvReac Type Severity Reaction Status Date / Time No Known Allergies Allergy Verified 04/19/25 19:57 Surgical History H/O oral surgery Social History adopted: No household members: family number of children: 1 current occupational status: employed current occupation: [employer] pets and animals: Yes (Avoid litterbox) pets and animals: cat(s) and dog(s) history of recent travel: No sexually active: Yes Smoking Status: Former smoker quit date: 06/02/24 Electronic Cigarette Use: with nicotine alcohol intake: never substance use type: does not use well-balanced diet: about half the time caffeine: No eating out: 1-3 times/week during the past year weight has: remained stable what type of physical activity do you participate in: none susana/mu-ism: None seatbelt use: always do you feel safe at home: Yes additional social history: BF Richard- [employer] ROS ROS ED ROS Narrative Headache. Nausea. Constitutional Constitutional ED: Denies chills or fever(s) Eyes Eyes: Reports change in vision ENT ENT ED: Denies ear pain Cardiovascular Cardiovascular: Denies chest pain Respiratory/Chest Respiratory/Chest: Denies cough or dyspnea Gastrointestinal Gastrointestinal: Reports nausea; Denies abdominal pain, constipation, diarrhea, melena or vomiting Genitourinary Genitourinary ED: Denies dysuria or hematuria Musculoskeletal Musculoskeletal: Denies arthralgias or back pain Integumentary Denies abscess or Abrasions Neurologic Neurologic: Reports headache(s); Denies paresthesias Psychiatric Psychiatric: Denies anxiety or depression Endocrine Endocrinology: Denies polydipsia or polyphagia Hematologic/Lymphatic Hematologic/Lymphatic: Denies easy bleeding, easy bruising or lymphadenopathy Allergic/Immunologic Allergic/Immunologic ED: Denies mouth swelling, tongue swelling or urticaria EXAM Physical Exam Narrative Exam Narrative: 19-year-old female seen in darkened room. Vital signs are stable afebrile. Pulse ox 100% on room air no signs hypoxia. H EENT exam pupils round react light. Extra motions are intact. Neck nontender no lymphadenopathy. No meningismus. Lungs clear to auscultation bilaterally. Heart regular rhythm no murmur. Abdomen soft nontender. Normal bowel sounds without peritoneal signs. Moving all 4 extremities. Normal strength and sensation. Normal range of motion. Neurologic exam normal. NIH 0. Fingertip to nose within normal limits. Rapid hand movements. NIH 0. Back nontender. Skin no rashes. She is awake alert. Answering questions following commands. Normal speech. Const Vital Signs: 04/19/25 19:55 04/19/25 22:00 Temperature 97.9 F Temperature Source Temporal Pulse Rate 95 73 Respiratory Rate 16 16 Blood Pressure 108/55 L 97/50 L Blood Pressure Mean 72 65 Pulse Ox 100 98 Oxygen Delivery Method Room Air Room Air Positive well nourished and well developed; Negative for cachectic, contractures or unkempt General Appearance ED: well developed and NAD; Negative for unkempt, cachectic, contractures, cyanotic or diaphoretic Nutritional Appearance: Negative for cachectic HEENT Reports normocephalic and moist mucous membranes atraumatic; Negative for trauma, tenderness, temporal artery tenderness or vesicular rash Face and Sinus: Negative for sinus tenderness Eyes PERRL and EOMs intact bilaterally Neck no lymphadenopathy, supple, no meningeal signs and no JVD Resp normal respiratory effort and clear to auscultation bilaterally Cardio regular rate, regular rhythm, S1 normal heart sound, S2 normal heart sound and no murmurs GI non-tender and non-distended Palpation: soft; Negative for firm or tender Back/Spine no CVA tenderness Extremity normal to inspection and full ROM Neuro oriented x3 and CN's II-XII intact bilaterally Sensorium / Orientation: awake, alert, oriented to person, oriented to place and oriented to time Coordination / Balance: [id number] test normal and [id number] test normal Speech: speech normal Motor Exam: strength 5/5 throughout Psych mental status grossly normal Appearance: Negative for unkempt Skin General Skin Exam: elasticity normal and turgor normal; Negative for jaundice Lesions: no lesions Rashes: no rashes MDM MDM MDM Narrative Medical decision making narrative: 19-year-old female with a headache was likely a migraine but reportedly no history. No trauma. CAT scan to be obtained she will be treated with IV fluids, Zofran, Toradol and Benadryl and reassess. Neurologic exam is normal. Initial repeat exam patient was still with a headache which she was then given Reglan. Repeat exam around 10:55 PM headache resolved. Neurologic exam remains normal. She feels good and comfortable being discharged home. CAT scan was unremarkable. She was treated as a migraine. Written for prescription of Imitrex. History & Record Review Discussion w/independent historian: Patient Additional record(s) reviewed:: Prior inpatient record, Prior outpatient record, Prior ED visit and Prior labs Radiography Diagnostic Testing: Clinical Impression(s) from Imaging Studies Brain CT 04/19/25 22:02 IMPRESSION: No acute intracranial process. Reading Location: [facility] Discharge Plan Triage Chief Complaint: Headache ED Provider: Colt Mayorga Dx/Rx/DC Orders Clinical Impression: Headache, Migraine Instructions: ED, Migraine (Classical) Prescriptions: New sumatriptan succinate [Imitrex] 25 mg tablet See Rx Instructions .ROUTE .COMPLEX Qty: 7 0RF Rx Instructions: take 1 tab at onset of headache; if no relief may repeat 1 tab after at least 2 hrs; max = 4 tabs/24 hr Primary Care Provider: Care Physician,No Primary Referrals: Care Physician,No Primary [Primary Care Provider] - Darlene Jiménez Tobi, SALES AG[employer] [[facility]] - 3-5 Days if not improving Activity Restrictions/Additional Instructions: Plenty of fluids and rest. Motrin Tylenol for pain. Drink some caffeinated beverages Follow-up with your doctor if not improving. I wrote you for similar medication called Imitrex. If you get a recurrent headache try to take that as soon as possible little off and relieve and resolve migraine headaches. Print Language: Persian Disposition Disposition: Home, Self Care
[2025-04-19] MEDS: DiphenhydrAMINE 50 MG/ML Syringe IV (21:23)
[2025-04-19] MEDS: Ketorolac 30 MG/ML Syringe IV (21:23)
[2025-04-19] MEDS: 0.9% Normal Saline (1000mL) 1,000 ML 1000 ML IV (21:24)
[2025-04-19 22:00] VITALS: BP 97/50; PULSE 73; RESP 16; O2SAT 98
--- NOTE | 2025-04-19 22:02 | CT_ITS ---
PROCEDURE: BRAIN/HEAD WITHOUT CONTRAST 04/19/2025 REASON FOR EXAM: HEADACHE TECHNIQUE: Procedure Code: CTBR Modality: CT Procedure: BRAIN/HEAD WITHOUT CONTRAST Coronal and Sagittal reconstruction series were provided. One or more dose reduction techniques were used (e.g., Automated exposure control, adjustment of the mA and/or kV according to patient size, use of iterative reconstruction technique. RADIATION DOSE SUMMARY: DLP: 578 mGycm COMPARISON: 12/28/19 FINDINGS: There is no acute infarct, intracranial hemorrhage, or mass effect. There is no hydrocephalus or significant midline shift. No acute, depressed calvarial fractures. No large scalp hematomas. The paranasal sinuses are clear. CT/Brain/Head without Contrast IMPRESSION: No acute intracranial process. Reading Location: [id number]
[2025-04-19 23:07] VITALS: BP 97/50; PULSE 73; RESP 16; TEMP 36.6; O2SAT 98
== END 2025-04-19 23:10 | disposition home or self-care (01) ==
PROVIDERS: Emergency Provider Emergency Medicine; Visit Provider Emergency Medicine
DX: G43.909 Migraine, unspecified, not intractable, without status migrainosus (principal); Z87.891 Personal history of nicotine dependence; R11.0 Nausea
CPT/HCPCS: 70450; 96361; 96374; 96375; 99282; A4216; J2405

== ENCOUNTER → 2025-06-21 | Outpatient (CLI) | payer BC, MEDICAID, SELFPAY ==
--- NOTE | 2025-06-21 08:52 | US_ITS ---
PROCEDURE: PELVIC W/ TRANSVAGINAL REASON FOR EXAM: RLQ PELVIC PAIN TECHNIQUE: Procedure Code: [id number] Modality: US Procedure: PELVIC W/ TRANSVAGINAL COMPARISON: None FINDINGS: LMP: May 28, 2025. Measurements: Uterus: 7.9 cm x 5.1 cm x 5.1 cm with a volume of 108.9 mL Endometrial Thickness: 14 mm. It is hyperechoic. Right Ovary: 3 cm x 2.6 cm x 1.8 cm with a volume of 7.6 mL. Left Ovary: 3.6 cm x 2.9 cm x 1.9 cm with a volume of 10 point mL. TRANSABDOMINAL: Uterus: Normal size, myometrial echotexture, and contour. Endometrium: Endometrium measures 14 mm. This may be related to the patient's menstrual cycle. Right ovary: Normal size and echotexture. Left ovary: Normal size and echotexture. Other: No large pelvic mass identified. Transvaginal sonography was performed to better visualize the endometrium. TRANSVAGINAL: Uterus: Retroverted. Normal contour and myometrial echotexture. Endometrium: Endometrium is thickened measuring 14 mm. Right ovary: Normal size and echotexture. Left ovary: Normal size and echotexture. Other adnexal findings: None. Cul-de-sac: No free intraperitoneal fluid identified. Tenderness: No tenderness US/Pelvic w/ Transvaginal IMPRESSION: Endometrium is thickened measuring 14 mm. Reading Location: [id number]
== END | disposition home or self-care (01) ==
LOC: OPUS 08:51
PROVIDERS: Referring Provider Advanced Practice Midwife; Visit Provider Advanced Practice Midwife
DX: R10.20 Pelvic and perineal pain unspecified side (principal)
CPT/HCPCS: 76830; 76856